=== PATIENT | female | born 1935 | race Caucasian/White ===

== ENCOUNTER 2016-11-05 13:19 | Outpatient (RCR) | payer MEDICARE ==
--- OUTSIDE RECORDS SUMMARY | 2016-08-27 13:14 | XMS REPORT | Continuity of Care Document ---
Author Author [facility] Organization [facility] Address Unknown Phone Unavailable Care Team Providers Care Field Collector Name Role Phone JENNIFER WOLFE MD PCP Insurance Providers Payer Name Policy Number Subscriber Name Relationship Wps Medicare [id number] Abilio Coe 18 Self / Same As Patient Blue Cross Mcr Supp [id number] Abilio Coe 18 Self / Same As Patient Advance Directives Directive Response Recorded Date/Time Advance Directives No 12/13/15 12:29pm Health Care Power of Floorleader No 12/13/15 12:29pm Organ Donor Yes 12/13/15 12:29pm Problems Active Problems Medical Problem Onset Date Status Chest pain Unknown Acute Medications Current Home Medications Medication Dose Units Route Directions Days/Qty Instructions Start Date Lisinopril 40 Mg 40 Mg Oral Daily 02/17/11 Oxycodone Hcl 5 Mg 5 Mg Oral Every 6 Hours 12/13/15 Furosemide 20 Mg 20 Mg Oral Daily 12/13/15 Potassium Chloride 10 Meq 10 Meq Oral Daily 12/13/15 Metoprolol Succinate 100 Mg 100 Mg Oral Twice A Day 12/13/15 Metoprolol Succinate 50 Mg 50 Mg Oral Daily 12/13/15 Past Home Medications Medication Directions Ordered Status Warfarin Sodium 5 Mg Tablet, 07/30/08 Discontinued Warfarin Sodium 1 Mg Tablet, 07/30/08 Discontinued Clopidogrel Bisulfate 75 Mg Tablet, 07/30/08 Discontinued Lisinopril 10 Mg Tablet, 07/30/08 Discontinued Metoprolol Succinate 50 Mg Tab.sr.24h, 07/30/08 Discontinued Omeprazole 20 Mg Capsule.dr, 07/30/08 Discontinued Propoxyphene Hcl/Acetaminophen 1 Tab Tablet, 08/28/08 Discontinued Dicloxacillin Sodium 250 Mg Capsule, 09/10/08 Discontinued Clindamycin Hcl 150 Mg Cap, 09/10/08 Discontinued Lansoprazole 30 Mg Cap, 12/11/09 Discontinued Lisinopril 40 Mg Tablet, 01/28/10 Discontinued Metoprolol Succinate 50 Mg Tab, 50 Mg Oral Evening 02/17/11 Discontinued Spironolactone 100 Mg Tablet, 100 Mg Oral Daily 02/17/11 Discontinued Hydrocodone Bit/Acetaminophen 1 Each Tablet, 2 Tab Oral Qid Prn as needed 03/25 Discontinued Cephalexin Monohydrate (Keflex) 500 Mg Capsule, 1 Each Oral Four Times Daily 02/24/11 Discontinued Metronidazole (Flagyl) 500 Mg Tablet, 1 Each Oral Three Times A Day 02/24/11 Discontinued Metoprolol Succinate 100 Mg Tab, 100 Mg Oral Morning 10/28/11 Discontinued Clindamycin Hcl 300 Mg Capsule, 1 Each Oral Four Times Daily 10/28/11 Discontinued Levofloxacin 250 Mg Tab, 250 Mg Oral Daily 11/19/11 Discontinued Omeprazole 20 Mg Capsule.dr, 20 Mg Oral Daily 10/04/14 Discontinued Acetaminophen 500 Mg Tablet, 500 Mg Oral Every 4HRS as needed for Pain Discontinued Hydrocodone Bit/Acetaminophen 1 Tab Tablet, 1-2 Tab Oral Every 4HRS as needed for Pain 10/04/14 Discontinued Metoprolol Tartrate 50 Mg Tablet, 50 Mg Oral Bedtime 10/04/14 Discontinued Cefdinir 300 Mg Capsule, 300 Mg Oral Twice A Day 12/28/14 Discontinued Metoprolol Succinate 100 Mg Tab.er.24h, 100 Mg Oral Twice A Day 12/13/15 Discontinued Social History Social History Problem Response Recorded Date/Time Alcohol Use Denies Use 12/13/2015 12:29pm Recreational Drug Use No 12/13/2015 12:29pm Recent Foreign Travel N [address] 03/17/2016 10:58am Sexually Transmitted Disease No 12/13/2015 12:29pm Do you dip or chew tobacco? No 12/13/2015 12:29pm Hospital Discharge Instructions No hospital discharge instructions. Plan of Care Prescriptions See Medication Section Functional Status No functional status results. Allergies, Adverse Reactions, Alerts Allergen Type Severity Reaction Status Last Updated Morphine Adverse Reaction Mild NAUSEA Active 07/30/08 Codeine Adverse Reaction Mild NAUSEA Active 07/30/08 Meperidine Adverse Reaction Mild N/V Active 01/17/10 Immunizations Name Given Type Date of Influenza Vaccine 09/03/14 Historical Tetanus Booster (TDap) Unknown Historical Vital Signs No known vital signs results. Results Laboratory Results Test Name Result Units Flags Reference Collection Date/Time Result Date/ Time Comments White Blood Count 9.5 10^3/uL 4.3-11.0 04/27/2016 1:05pm 04/27/2016 1: 15pm Red Blood Count 3.56 10^6/uL L 4.35-5.85 04/27/2016 1:05pm 04/27/2016 1: 15pm Hemoglobin 10.7 G/DL L 11.5-16.0 04/27/2016 1:05pm 04/27/2016 1:15pm Hematocrit 33 % L 35-52 04/27/2016 1:05pm 04/27/2016 1:15pm Mean Corpuscular Volume 93 FL 80-99 04/27/2016 1:05pm 04/27/2016 1: 15pm Mean Corpuscular Hemoglobin 30 PG 25-34 04/27/2016 1:05pm 04/27/2016 1: 15pm Mean Corpuscular Hemoglobin Concent 32 G/DL 32-36 04/27/2016 1:05pm 1:15pm Red Cell Distribution Width 14.5 % 10.0-14.5 04/27/2016 1:05pm 2015 1:15pm Platelet Count 268 10^3/uL 130-400 04/27/2016 1:05pm 04/27/2016 1:15pm Mean Platelet Volume 9.5 FL 7.4-10.4 04/27/2016 1:05pm 04/27/2016 1: 15pm Neutrophils (%) (Auto) 65 % 42-75 04/27/2016 1:05pm 04/27/2016 1:15pm Lymphocytes (%) (Auto) 22 % 12-44 04/27/2016 1:05pm 04/27/2016 1:15pm Monocytes (%) (Auto) 12 % 0-12 04/27/2016 1:05pm 04/27/2016 1:15pm Eosinophils (%) (Auto) 1 % 0-10 04/27/2016 1:05pm 04/27/2016 1:15pm Basophils (%) (Auto) 0 % 0-10 04/27/2016 1:05pm 04/27/2016 1:15pm Neutrophils # (Auto) 6.2 X 10^3 1.8-7.8 04/27/2016 1:05pm 04/27/2016 1: 15pm Lymphocytes # (Auto) 2.1 X 10^3 1.0-4.0 04/27/2016 1:05pm 04/27/2016 1: 15pm Monocytes # (Auto) 1.1 X 10^3 H 0.0-1.0 04/27/2016 1:05pm 04/27/2016 1: 15pm Eosinophils # (Auto) 0.1 10^3/uL 0.0-0.3 04/27/2016 1:05pm 04/27/2016 1 :15pm Basophils # (Auto) 0.0 10^3/uL 0.0-0.1 04/27/2016 1:05pm 04/27/2016 1: 15pm Sodium Level 137 MMOL/L 135-145 04/27/2016 1:05pm 04/27/2016 1:48pm Potassium Level 3.7 MMOL/L 3.6-5.0 04/27/2016 1:05pm 04/27/2016 1:48pm Chloride Level 104 MMOL/L 98-107 04/27/2016 1:05pm 04/27/2016 1:48pm Carbon Dioxide Level 25 MMOL/L 21-32 04/27/2016 1:05pm 04/27/2016 1: 48pm Anion Gap 8 MMOL/L 5-14 04/27/2016 1:05pm 04/27/2016 1:48pm Blood Urea Nitrogen 13 MG/DL 7-18 04/27/2016 1:05pm 04/27/2016 1:48pm Creatinine 0.78 MG/DL 0.60-1.30 04/27/2016 1:05pm 04/27/2016 1:48pm BUN/Creatinine Ratio 17 04/27/2016 1:05pm 04/27/2016 1:48pm Estimat Glomerular Filtration Rate > 60 04/27/2016 1:05pm 2015 1:48pm GFR INTERPRETIVE DATA UNITS FOR ESTIMATED GFR (eGFR): mL/min/1.73 M2 REFERENCE RANGE FOR ESTIMATED GFR (eGFR) eGFR NORMAL eGFR >60 MODERATELY DECREASED eGFR 30-59 SEVERLY DECREASED eGFR 15-29 KIDNEY FAILURE <15 (OR DIALYSIS) Glucose Level 102 MG/DL 70-105 04/27/2016 1:05pm 04/27/2016 1:48pm Calcium Level 8.6 MG/DL 8.5-10.1 04/27/2016 1:05pm 04/27/2016 1:48pm Total Bilirubin 3.2 MG/DL H 0.1-1.0 04/27/2016 1:05pm 04/27/2016 1:48pm Alkaline Phosphatase 396 U/L H 40-136 04/27/2016 1:05pm 04/27/2016 1: 48pm Aspartate Amino Transf (AST/SGOT) 48 U/L H 5-34 04/27/2016 1:05pm 2015 1:48pm Alanine Aminotransferase (ALT/SGPT) 32 U/L 0-55 04/27/2016 1:05pm 04/27 1:48pm Total Protein 6.7 G/DL 6.4-8.2 04/27/2016 1:05pm 04/27/2016 1:48pm Albumin 3.4 G/DL 3.2-4.5 04/27/2016 1:05pm 04/27/2016 1:48pm Procedures No known history of procedures. Encounters Encounter Location Arrival/Admit Date Discharge/Depart Date Attending Provider Discharged Recurring [facility] 04/27/16 12:55pm 11:59pm XIN PATE Registered Clinic [facility] 04/22/16 10:25am MORENITA FARRIS
[2016-08-27 13:34] LABS: BASOPHILS % (AUTO) 0 % (0-10); EOSINOPHILS # (AUTO) 0.4 10^3/uL (0.0-0.3); EOSINOPHILS % (AUTO) 4 % (0-10); LYMPHOCYTES # (AUTO) 2.2 X 10^3 (1.0-4.0); LYMPHOCYTES % (AUTO) 27 % (12-44); MEAN CORPUSCULAR HEMOGLOBIN 31 PG (25-34); MEAN CORPUSCULAR HGB CONC 33 G/DL (32-36); MEAN CORPUSCULAR VOLUME 93 FL (80-99); MONOCYTES # (AUTO) 0.9 X 10^3 (0.0-1.0); MONOCYTES % (AUTO) 11 % (0-12); NEUTROPHILS # (AUTO) 4.7 X 10^3 (1.8-7.8); NEUTROPHILS % (AUTO) 57 % (42-75); PLATELET COUNT 241 10^3/uL (130-400); RED BLOOD COUNT 3.49 10^6/uL (4.35-5.85); RED CELL DISTRIBUTION WIDTH 13.1 % (10.0-14.5); WHITE BLOOD COUNT 8.2 10^3/uL (4.3-11.0)
[2016-08-27 14:06] LABS: ALANINE AMINOTRANSFERASE 14 U/L (0-55); ALBUMIN 3.6 G/DL (3.2-4.5); ANION GAP 6 MMOL/L (5-14); ASPARTATE AMINO TRANSFERASE 17 U/L (5-34); BILIRUBIN,TOTAL 0.8 MG/DL (0.1-1.0); BLOOD UREA NITROGEN 15 MG/DL (7-18); BUN/CREATININE RATIO 18; CALCIUM 8.7 MG/DL (8.5-10.1); CARBON DIOXIDE 27 MMOL/L (21-32); CHLORIDE 105 MMOL/L (98-107); CREATININE SERUM 0.84 MG/DL (0.60-1.30); GFR ESTIMATED > 60; GLUCOSE 130 MG/DL (70-105); POTASSIUM 4.4 MMOL/L (3.6-5.0); SODIUM 138 MMOL/L (135-145); TOTAL PROTEIN 6.8 G/DL (6.4-8.2)
[2016-09-24 09:53] LABS: BASOPHILS % (AUTO) 0 % (0-10); EOSINOPHILS # (AUTO) 0.3 10^3/uL (0.0-0.3); EOSINOPHILS % (AUTO) 3 % (0-10); LYMPHOCYTES # (AUTO) 1.8 X 10^3 (1.0-4.0); LYMPHOCYTES % (AUTO) 20 % (12-44); MEAN CORPUSCULAR HEMOGLOBIN 31 PG (25-34); MEAN CORPUSCULAR HGB CONC 34 G/DL (32-36); MEAN CORPUSCULAR VOLUME 92 FL (80-99); MEAN PLATELET VOLUME 9.2 FL (7.4-10.4); MONOCYTES # (AUTO) 0.9 X 10^3 (0.0-1.0); MONOCYTES % (AUTO) 10 % (0-12); NEUTROPHILS % (AUTO) 67 % (42-75); PLATELET COUNT 239 10^3/uL (130-400); RED BLOOD COUNT 3.65 10^6/uL (4.35-5.85); RED CELL DISTRIBUTION WIDTH 13.3 % (10.0-14.5)
[2016-09-24 10:33] LABS: ALANINE AMINOTRANSFERASE 42 U/L (0-55); ALBUMIN 3.8 G/DL (3.2-4.5); ANION GAP 7 MMOL/L (5-14); ASPARTATE AMINO TRANSFERASE 58 U/L (5-34); BILIRUBIN,TOTAL 1.2 MG/DL (0.1-1.0); BLOOD UREA NITROGEN 19 MG/DL (7-18); BUN/CREATININE RATIO 24; CARBON DIOXIDE 24 MMOL/L (21-32); CHLORIDE 105 MMOL/L (98-107); GFR ESTIMATED > 60; GLUCOSE 98 MG/DL (70-105); POTASSIUM 4.6 MMOL/L (3.6-5.0); SODIUM 136 MMOL/L (135-145); TOTAL PROTEIN 7.1 G/DL (6.4-8.2)
[~2016-11-05 13:19] MED LIST: ACET-461 PO; CEFD300C PO; CEPH500C PO; CLIN300C3 PO; CLN150C; CLPD75T; DCL250C; DOXA2TAB2 PO; FLU TRIvalent (5 YOA+) 2016-17 (CANCER CTR) 0.5 ML IM ONE; FURO-125 PO; HYDR-3714 PO; HYDR1TAB66 PO; LEVO250T PO; LISI40TA; LISI40TA PO; LNS30CCR; LSNP10T; METO-274 PO; METO-352 PO; METO100T6 PO; METO50TA2 PO; METO50TA7; METO50TA7 PO; METR500T PO; MTP100TCR PO; OMEP20CA12; OMEP20CA12 PO; OXYC5TAB71 PO; POTA10TA6 PO; PROP1TAB77; SPIR100T PO; WRF1T; WRF5T
[2017-02-17] MEDS ORDERED: FENT1PAT8 TD (09:22)
[2017-02-17] MEDS ORDERED: Oxycodone Hcl PO (09:22)
[2017-02-17] MEDS ORDERED: Calcitonin (09:22)
[2017-03-18] MEDS ORDERED: HYDR2TAB6 PO (15:01)
== END 2016-11-25 | disposition home or self-care (01) ==
LOC: ONC 13:19
PROVIDERS: ATTEND Internal Medicine Hematology & Oncology
DX: C25.0 Malignant neoplasm of head of pancreas (principal); C77.9 Secondary and unspecified malignant neoplasm of lymph node, unspecified; D64.9 Anemia, unspecified; Z79.899 Other long term (current) drug therapy; Z23 Encounter for immunization; Z45.2 Encounter for adjustment and management of vascular access device
CPT/HCPCS: 36591; 80053; 85025; 86301; 90471; 96523; 99213

== ENCOUNTER → 2016-12-17 | Outpatient (CLI) | payer MEDICARE ==
[~2016-12-17] MED LIST changes: +BARIUM SUSPENSION 2.1% (VANILLA SILQ) 450 ML PO ONE; +CATHETER FLUSH 10 ML SYR IV PRN; +CEFU250T80 PO; +Calcitonin; +DIAZ5TAB3 PO; +FENT1PAT8 TD; -FLU TRIvalent (5 YOA+) 2016-17 (CANCER CTR) 0.5 ML IM ONE; +HYDR2TAB6 PO; +IOHEXOL 350 MG/ML 100 ML (OMNIPAQUE 350) VIAL IV ONE; +KETO10TA PO; +NS 100 ML (IVPB) BAG IV ONE; +ONDA8TAB6 PO; +Oxycodone Hcl PO
--- OUTSIDE RECORDS SUMMARY | 2016-12-17 10:19 | XMS REPORT | Continuity of Care Document ---
Author Author [facility] Organization [facility] Address Unknown Phone Unavailable Care Team Providers Care Die Barber Name Role Phone JENNIFER WOLFE MD PCP Insurance Providers Payer Name Policy Number Subscriber Name Relationship Wps Medicare [id number] Abilio Coe 18 Self / Same As Patient Blue Cross Mcr Supp [id number] Abilio Coe 18 Self / Same As Patient Advance Directives Directive Response Recorded Date/Time Advance Directives No 12/13/15 12:29pm Health Care Power of Aircraft Fuselage Framer No 12/13/15 12:29pm Organ Donor Yes 12/13/15 [...] Discharge/Depart Date Attending Provider Discharged Recurring [facility] 04/27/16 12:55pm 11:59pm XIN PATE Registered Clinic [facility] 04/22/16 10:25am MORENITA FARRIS
--- NOTE | 2016-12-17 12:51 | Diagnostic Imaging Report ---
PROCEDURE: CT chest and abdomen with contrast. TECHNIQUE: Multiple contiguous axial images were obtained through the chest and abdomen after the administration of intravenous contrast. INDICATION: Pancreatic cancer followup. CONTRAST: 100 mL of Omnipaque 350 is administered intravenously. COMPARISON: 09/24/2016. FINDINGS: CT chest: In the left supraclavicular region, there is a 2.9 x 2.5 cm asymmetric soft tissue lesion inseparable from the anterior scalene muscle on the left side, which appears larger compared to 09/24/2016 exam. Exact measurements are difficult based on the prior study in particular due to poor separation of this lesion from the adjacent anterior scalene muscle. 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 It could be better seen with dedicated CT scan or MRI of the neck. There is an enlarged retroesophageal lymph node to the right side of the descending aorta at the level of the mellisa measuring 1.6 x 1.2 cm, enlarged from prior measurements of 1.4 x 1 cm. No other significantly enlarged mediastinal lymph nodes is seen. No hilar lymphadenopathy is seen. The heart size is normal. No pericardial or pleural effusion. The thoracic aorta is normal in caliber. The lungs demonstrate calcified granulomas in the right lung base. There is a 6 mm low-density nodule seen in the left lower lobe, image 39, new from the prior study. The previously seen nodule along the mid portion of the right middle lobe, image 35, is less prominent on the current exam with similar measurement of 6 mm. Etiology is indeterminate. The osseous structures appear grossly unremarkable. CT abdomen: There is a pancreatic head mass with poorly defined margins extending into the marco hepatis region seen. There is a CBD stent in place. There is extensive biliary air noted with dilated bile ducts within the liver parenchyma, worse in the left hepatic lobe. The pancreatic head mass measures 6.4 x 3.9 cm compared to 4.8 x 3.9 cm on the prior exam. There is slight enlargement in a paracaval lymph node measuring 2.5 x 2.2 cm compared to 2.5 x 2 cm previously with a slightly more prominent aortocaval lymph node adjacent to it. Another more inferior aortocaval lymph node measures 2.2 cm compared to 1.3 cm previously. The spleen is not enlarged. The adrenals appear unremarkable. There is an IVC filter in place. The kidneys have symmetric enhancement and contrast excretion. There is a simple cyst in the lower pole of the right kidney measuring 4.5 cm. The abdominal aorta is normal in caliber. The osseous structures appear grossly unremarkable. IMPRESSION: CT chest: 1. 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 2. A 6 mm new nonspecific low-density left lower lobe nodule. Stable 6 mm right middle lobe nodule. 3. Slight enlargement in 1.6 cm retroesophageal lymph node. CT abdomen: There is slight enlargement in the pancreatic head mass and in the paracaval lymphadenopathy seen. Dictated by: Dictated on workstation # [id number]
== END ==
LOC: RAD 10:15
PROVIDERS: ATTEND Nurse Practitioner Adult Health
DX: R22.2 Localized swelling, mass and lump, trunk (principal); R91.8 Other nonspecific abnormal finding of lung field; R59.0 Localized enlarged lymph nodes; C25.0 Malignant neoplasm of head of pancreas
CPT/HCPCS: 71260; 74160

== ENCOUNTER 2017-01-23 15:30 | Emergency (ER) | payer MEDICARE ==
[~2017-01-23] VITALS: Ht 175.3 cm; Wt 78.5 kg
[~2017-01-23 15:30] MED LIST changes: -BARIUM SUSPENSION 2.1% (VANILLA SILQ) 450 ML PO ONE; -CATHETER FLUSH 10 ML SYR IV PRN; -CEFU250T80 PO; -Calcitonin; -DIAZ5TAB3 PO; -FENT1PAT8 TD; -HYDR2TAB6 PO; -IOHEXOL 350 MG/ML 100 ML (OMNIPAQUE 350) VIAL IV ONE; -KETO10TA PO; -NS 100 ML (IVPB) BAG IV ONE; -ONDA8TAB6 PO; -Oxycodone Hcl PO
--- OUTSIDE RECORDS SUMMARY | 2017-01-23 15:36 | XMS REPORT | Continuity of Care Document ---
Author Author [facility] Organization [facility] Address Unknown Phone Unavailable Care Team Providers Care Liquefied Petroleum Gasfitter Name Role Phone JENNIFER WOLFE MD PCP Insurance Providers Payer Name Policy Number Subscriber Name Relationship Wps Medicare [id number] Abilio Coe 18 Self / Same As Patient Blue Cross Mcr Supp [id number] Abilio Coe 18 Self / Same As Patient Advance Directives Directive Response Recorded Date/Time Advance Directives No 12/13/15 12:29pm Health Care Power of Performance Improvement Director No 12/13/15 12:29pm Organ Donor Yes 12/13/15 [...] Discharge/Depart Date Attending Provider Discharged Recurring [facility] 04/27/16 12:55pm 11:59pm XIN PATE Registered Clinic [facility] 04/22/16 10:25am MORENITA FARRIS
[2017-01-23] MEDS ORDERED: ORPHENADRINE 60 MG/2 ML (NORFLEX) AMP IV ONE (17:00)
[2017-01-23] MEDS ORDERED: KETOROLAC 30 MG/ML VIAL IVP ONE (17:00)
[2017-01-23 17:06] LABS: BASOPHILS % (AUTO) 0 % (0-10); EOSINOPHILS # (AUTO) 0.2 10^3/uL (0.0-0.3); EOSINOPHILS % (AUTO) 2 % (0-10); LYMPHOCYTES # (AUTO) 2.1 X 10^3 (1.0-4.0); LYMPHOCYTES % (AUTO) 22 % (12-44); MEAN CORPUSCULAR HEMOGLOBIN 32 PG (25-34); MEAN CORPUSCULAR HGB CONC 34 G/DL (32-36); MEAN CORPUSCULAR VOLUME 94 FL (80-99); MEAN PLATELET VOLUME 9.4 FL (7.4-10.4); MONOCYTES # (AUTO) 0.2 X 10^3 (0.0-1.0); MONOCYTES % (AUTO) 2 % (0-12); NEUTROPHILS # (AUTO) 6.9 X 10^3 (1.8-7.8); NEUTROPHILS % (AUTO) 74 % (42-75); PLATELET COUNT 302 10^3/uL (130-400); RED CELL DISTRIBUTION WIDTH 14.9 % (10.0-14.5); WHITE BLOOD COUNT 9.3 10^3/uL (4.3-11.0)
[2017-01-23 17:30] LABS: ALANINE AMINOTRANSFERASE 16 U/L (0-55); ALBUMIN 3.4 G/DL (3.2-4.5); ANION GAP 10 MMOL/L (5-14); ASPARTATE AMINO TRANSFERASE 28 U/L (5-34); BILIRUBIN,TOTAL 0.7 MG/DL (0.1-1.0); BLOOD UREA NITROGEN 23 MG/DL (7-18); BUN/CREATININE RATIO 24; CALCIUM 8.4 MG/DL (8.5-10.1); CARBON DIOXIDE 20 MMOL/L (21-32); CHLORIDE 104 MMOL/L (98-107); CREATININE SERUM 0.95 MG/DL (0.60-1.30); GFR ESTIMATED 57; GLUCOSE 100 MG/DL (70-105); LIPASE < 4 U/L (8-78); SODIUM 134 MMOL/L (135-145); TOTAL PROTEIN 6.6 G/DL (6.4-8.2)
--- NOTE | 2017-01-23 17:40 | ED Back Pain ---
General Chief Complaint: Back Problems Stated Complaint: BACK PAIN Nursing Triage Note: PT HERE WITH C/O MID BACK PAIN AFTER LIFTING BAGS. Nursing Sepsis Screen: No Definite Risk Source of Information: Patient Exam Limitations: No Limitations History of Present Illness Time Seen by Provider: 16:45 Initial Comments To ER with thoracic back pain that wraps around to the front. This began suddenly yesterday after lifting a bag of groceries. She is currently being treated with chemotherapy every by Dr. Alvarado for pancreatic cancer. She denies abdominal pain nausea or vomiting. She took 2 extra doses of Percocet at 245 p.m. today without improvement in pain. No paresthesias in her arms or legs. She did not fall. Location: T-Spine Timing/Duration: 12-24 Hours Severity: Moderate Pain/Injury Location: Back Associated Symptoms: denies symptoms Allergies and Home Medications Allergies Coded Allergies: codeine (Verified Adverse Reaction, Mild, NAUSEA, 07/30/08) meperidine (Verified Adverse Reaction, Mild, N/V, 01/17/10) morphine (Verified Adverse Reaction, Mild, NAUSEA, 07/30/08) Home Medications Doxazosin Mesylate 2 Mg Tablet 2 MG PO DAILY (Reported) Furosemide 20 Mg Tablet 20 MG PO DAILY (Reported) Lisinopril 40 Mg Tablet 40 MG PO DAILY (Reported) Metoprolol Succinate 100 Mg Tab.er.24h 100 MG PO BID (Reported) Metoprolol Succinate 50 Mg Tab.er.24h 50 MG PO DAILY (Reported) Oxycodone HCl 5 Mg Tablet 5 MG PO Q6H (Reported) Constitutional: see HPI EENTM: see HPI Respiratory: no symptoms reported Cardiovascular: no symptoms reported Genitourinary: no symptoms reported Musculoskeletal: see HPI back pain Skin: no symptoms reported Psychiatric/Neurological: No Symptoms Reported Past Tjwrgyf-Xkuabl-Lervgl Hx Patient Social History Former Smoker/When Quit: Dec 16, 2001 Recent Foreign Travel: No Contact w/Someone Who Travel: No Recent Infectious Disease Expo: No Recent Hopitalizations: Yes Immunizations Up To Date Tetanus Booster (TDap): Unknown Date of Influenza Vaccine: Sep 03, 2014 Surgeries HX Surgeries: Yes (BILATERAL FEM-POP, ARTERIAL SURGERY IN BILATERAL LEGS, CATARACTS, STENT.) Surgeries: Appendectomy, Gallbladder, Hysterectomy Respiratory Hx Respiratory Disorders: No Cardiovascular Hx Cardiac Disorders: Yes Cardiac Disorders: Hypertension Neurological Hx Neurological Disorders: No Reproductive System Hx Reproductive Disorders: No Sexually Transmitted Disease: No Genitourinary Hx Genitourinary Disorders: No Gastrointestinal Hx Gastrointestinal Disorders: Yes Musculoskeletal Hx Musculoskeletal Disorders: No Endocrine Hx Endocrine Disorders: No HEENT HX ENT Disorders: Yes (DENTURES) Cancer Hx Cancer: Yes Cancer: Pancreatic Psychosocial Hx Psychiatric Problems: No Integumentary HX Skin/Integumentary Disorder: No Blood Transfusions Hx Blood Disorders: No Family Medical History Significant Family History: No Pertinent Family Hx Physical Exam Vital Signs Vital Sign - Last 12Hours 01/23/17 16:04 Temp 98.5 Pulse 64 Resp 18 B/P 128/57 Pulse Ox 94 O2 Delivery Room Air Capillary Refill : Less Than 3 Seconds General Appearance: No Apparent Distress WD/WN HEENT: PERRL/EOMI TMs Normal Respiratory: Normal Breath Sounds No Accessory Muscle Use No Respiratory Distress Gastrointestinal: Normal Bowel Sounds No Pulsatile Mass Non Tender Soft Extremity: Normal Capillary Refill Normal Inspection Neurologic/Psychiatric: Alert Oriented x3 No Motor/Sensory Deficits Skin: Normal Color Warm/Dry Progress/Results/Core Measures Results/Orders Lab Results Laboratory Tests Test 01/23/17 16:58 Range/Units Alanine Aminotransferase (ALT/SGPT) 16 0-55 U/L Albumin 3.4 3.2-4.5 G/DL Alkaline Phosphatase 68 40-136 U/L Anion Gap 10 5-14 MMOL/L Aspartate Amino Transf (AST/SGOT) 28 5-34 U/L BUN/Creatinine Ratio 24 Basophils # (Auto) 0.0 0.0-0.1 10^3/uL Basophils (%) (Auto) 0 0-10 % Blood Urea Nitrogen 23 H 7-18 MG/DL Calcium Level 8.4 L 8.5-10.1 MG/DL Carbon Dioxide Level 20 L 21-32 MMOL/L Chloride Level 104 98-107 MMOL/L Creatinine 0.95 0.60-1.30 MG/DL Eosinophils # (Auto) 0.2 0.0-0.3 10^3/uL Eosinophils (%) (Auto) 2 0-10 % Estimat Glomerular Filtration Rate 57 Glucose Level 100 70-105 MG/DL Hematocrit 30 L 35-52 % Hemoglobin 10.1 L 11.5-16.0 G/DL Lipase < 4 L 8-78 U/L Lymphocytes # (Auto) 2.1 1.0-4.0 X 10^3 Lymphocytes (%) (Auto) 22 12-44 % Mean Corpuscular Hemoglobin 32 25-34 PG Mean Corpuscular Hemoglobin Concent 34 32-36 G/DL Mean Corpuscular Volume 94 80-99 FL Mean Platelet Volume 9.4 7.4-10.4 FL Monocytes # (Auto) 0.2 0.0-1.0 X 10^3 Monocytes (%) (Auto) 2 0-12 % Neutrophils # (Auto) 6.9 1.8-7.8 X 10^3 Neutrophils (%) (Auto) 74 42-75 % Platelet Count 302 130-400 10^3/uL Potassium Level 5.0 3.6-5.0 MMOL/L Red Blood Count 3.20 L 4.35-5.85 10^6/uL Red Cell Distribution Width 14.9 H 10.0-14.5 % Sodium Level 134 L 135-145 MMOL/L Total Bilirubin 0.7 0.1-1.0 MG/DL Total Protein 6.6 6.4-8.2 G/DL White Blood Count 9.3 4.3-11.0 10^3/uL My Orders Orders-RONEL MARES APRN Cbc With Automated Diff (01/23/17 16:55) Comprehensive Metabolic Panel (01/23/17 16:55) Lipase (01/23/17 16:55) T-Spine 3v-Ap, Lat, Swimmers (01/23/17 16:55) Ct Abdomen/Pelvis Wo (01/23/17 16:55) Saline Lock/Iv-Start (01/23/17 16:55) Ketorolac Injection (Toradol Injection) (01/23/17 17:00) Orphenadrine Injection (Norflex Injectio (01/23/17 17:00) Medications Given in ED Current Medications Medications Dose Ordered Sig/Fracisco Route Start Time Stop Time Status Last Admin Dose Admin Ketorolac Tromethamine 30 mg ONCE ONCE IVP 01/23/17 17:00 01/23/17 17:01 DC 01/23/17 17:08 30 MG Orphenadrine Citrate 30 mg ONCE ONCE IV 01/23/17 17:00 01/23/17 17:01 DC 01/23/17 17:06 30 MG Vital Signs/I&O Vital Sign - Last 12Hours 01/23/17 16:04 Temp 98.5 Pulse 64 Resp 18 B/P 128/57 Pulse Ox 94 O2 Delivery Room Air Blood Pressure Mean: 80 Diagnostic Imaging Diagonstic Imaging: CT Comments NAME: ABILIO COE [facility] REC#: [id number] PT STATUS: REG ER : 1935 PHYSICIAN: RONEL MARES CHAIRMAN AND CEO ADMIT DATE: 01/23/17/ER Draft Date of Exam:01/23/17 CT ABDOMEN/PELVIS WO Procedure: CT abdomen and pelvis without contrast. Technique: Multiple contiguous axial images were obtained through the abdomen and pelvis without the use of intravenous contrast. Indication: Abdominal pain after lifting groceries yesterday. Comparison: 12/17/2016 and 05/29/2016. Discussion: Atelectasis is noted within the bilateral lung bases. Coarse calcifications within the right lung base are stable, likely benign. Apparent pancreatic head mass with metallic common bile duct stent and extensive pneumobilia is stable. Masslike thickening of the marco hepatis is stable. IVC filter is again noted. Atrophy of the pancreatic body and tail is stable. The stomach, spleen, adrenal glands and urinary bladder are unremarkable. The uterus is surgically absent. Large left renal cyst is stable. Mild atrophy of the right kidney is stable. Mild constipation. No obstruction, pneumatosis or pneumoperitoneum. Chronic appearing compression fracture of the T12 vertebrae is stable. Moderate degenerative changes of the lumbar spine are stable. No acute osseous abnormality identified. Impression: Stable chronic changes, as discussed above. No acute abnormality identified. Dictated on workstation # [id number] Dict: 01/23/17 1755 Trans: 01/23/17 1807 [facility] [id number] Interpreted by: SYLVIA DORMAN MD Electronically signed by: Departure Communication Progress Notes 1818-pain was 9 out of 10 upon arrival. She was given 30 mg of Toradol and 30 mg of Norflex IV. Pain is currently 2 out of 10. No new findings on CT. We will discharge to home. Impression Impression: Primary Impression: Pancreatic cancer Additional Impression: Thoracic back sprain Disposition: HOME, SELF-CARE Condition: Improved Decision to Admit Reason: Admit from ER (General) Departure-Patient Inst. Decision time for Depature: 18:17 Referrals: DENY MONTAGUE MD (PCP/Family) Primary Care Physician Patient Instructions: Muscle Strain (DC) Add. Discharge Instructions: 1. Return to ER for any worsening pain or other concerns 2. Follow-up with Dr. Chin All discharge instructions reviewed with patient and/or family. Voiced understanding. Copy Copies To 1: XIN CHIN PETER J APRN Jan 23, 2017 17:40
--- NOTE | 2017-01-23 17:47 | Diagnostic Imaging Report ---
Indication: Mid back pain after lifting groceries yesterday. Discussion: Three views of the thoracic spine were obtained, no comparison. Postoperative changes are noted within the right upper quadrant with additional IVC filter present. Left chest wall [id number] is noted. Mild chronic appearing compression fracture of either T12 or L1 appears stable from chest x-ray of 02/01/2015. Age-related degenerative changes are present throughout the thoracic spine. No acute osseous abnormality is identified. Antecedent granulomatous disease is again noted. Impression: Chronic changes of the thoracic spine, as described. No acute osseous abnormality identified. Dictated by: Dictated on workstation # [id number]
--- NOTE | 2017-01-23 18:08 | Diagnostic Imaging Report ---
Procedure: CT abdomen and pelvis without contrast. Technique: Multiple contiguous axial images were obtained through the abdomen and pelvis without the use of intravenous contrast. Indication: Abdominal pain after lifting groceries yesterday. Comparison: 12/17/2016 and 05/29/2016. Discussion: Atelectasis is noted within the bilateral lung bases. Coarse calcifications within the right lung base are stable, likely benign. Apparent pancreatic head mass with metallic common bile duct stent and extensive pneumobilia is stable. Masslike thickening of the marco hepatis is stable. IVC filter is again noted. Atrophy of the pancreatic body and tail is stable. The stomach, spleen, adrenal glands and urinary bladder are unremarkable. The uterus is surgically absent. Large left renal cyst is stable. Mild atrophy of the right kidney is stable. Mild constipation. No obstruction, pneumatosis or pneumoperitoneum. Chronic appearing compression fracture of the T12 vertebrae is stable. Moderate degenerative changes of the lumbar spine are stable. No acute osseous abnormality identified. Impression: Stable chronic changes, as discussed above. No acute abnormality identified. Dictated by: Dictated on workstation # [id number]
[2017-01-23 18:42] VITALS: BP 109/55
[2017-02-17] MEDS ORDERED: Calcitonin (09:22)
[2017-02-17] MEDS ORDERED: FENT1PAT8 TD (09:22)
[2017-02-17] MEDS ORDERED: Oxycodone Hcl PO (09:22)
[2017-03-18] MEDS ORDERED: HYDR2TAB6 PO (15:01)
== END 2017-01-23 18:42 | disposition home or self-care (01) ==
LOC: EDUNIT# 15:30 → ER 15:31
DX: M54.6 Pain in thoracic spine (principal); M47.814 Spondylosis without myelopathy or radiculopathy, thoracic region; M47.816 Spondylosis without myelopathy or radiculopathy, lumbar region; C25.9 Malignant neoplasm of pancreas, unspecified; I10 Essential (primary) hypertension; Z79.899 Other long term (current) drug therapy
CPT/HCPCS: 36415; 72072; 74176; 80053; 83690; 85025; 96374; 96375

== ENCOUNTER 2017-02-04 18:07 | Day surgery (SDC) | payer MEDICARE ==
[~2017-02-04] VITALS: Ht 175.3 cm; Wt 81.5 kg
[2017-02-04] MEDS ORDERED: fentaNYL INJECTION 100 MCG/2 ML AMP IVP STA ×2 (18:51→20:38)
[2017-02-04 19:05] LABS: BILIRUBIN,URINE NEGATIVE (NEGATIVE); KETONES,URINE NEGATIVE (NEGATIVE); LEUKOCYTE ESTERASE ,URINE 3+ (NEGATIVE); NITRITE,URINE NEGATIVE (NEGATIVE); PH,URINE 7 (5-9); PROTEIN,URINE NEGATIVE (NEGATIVE); UROBILINOGEN,URINE 1 MG/DL (NORMAL)
--- NOTE | 2017-02-04 19:18 | ED Back Pain ---
General Chief Complaint: Back Problems Stated Complaint: BACK PAIN Nursing Triage Note: PT HERE WITH C/O MIDDLE BACK PAIN FROM [facility]. PT REPORTS THIS WILL BE HER 3RD VISIT FOR THIS SAME COMPLAINT. Nursing Sepsis Screen: No Definite Risk Source of Information: Patient, Family (DAUGHTER) History of Present Illness Time Seen by Provider: 18:50 Initial Comments PT ARRIVES VIA POV FROM HOME PT WAS CARRYING GROCERIES INTO HOUSE A WEEK AGO AND SUDDENLY BEGAN TO HAVE MID AND LOWER BACK PAIN --FELT LIKE A BAD PULLED MUSCLE PT WAS SEEN IN ER A WEEK AGO, CT OF ABDOMEN/PELVIS AND THORACIC SPINE XRAYS DID NOT SHOW ANY ACUTE PROCESS--PT HAS PANCREATIC CANCER AND HAD CHANGES RELATED TO THAT, AND OLD T12 COMPRESSION FX AND DEGENERATIVE CHANGES OF LUMBAR SPINE. WAS GIVEN MEDICATIONS IN ER AND HELPED ALOT, NO RX GIVEN PT SEEN BY DR. Sergey MONTAGUE 2 DAYS AGO FOR SAME. RX FOR VALIUM GIVEN--PT STATES NO RELIEF PT TAKES OXYCODONE FOR CHRONIC ARTHRITIS PAIN, ESPECIALLY IN LEGS AND KNEES-- TOOK 2 TODAY AT 1400 WITHOUT RELIEF. NO PARESTHESIAS OR MOTOR DEFICITS NO BOWEL OR BLADDER FUNCTION DIFFICULTIES NO CHEST PAIN OR SHORTNESS OF BREATH NO FEVER NO ABDOMINAL PAIN OR NAUSEA/VOMITING STATES IT HURTS TO MOVE AT ALL PT IS CURRENTLY RECEIVING CHEMO FOR PANCREATIC CANCER AND WAS SUPPOSED TO HAVE IT TODAY, BUT DID NOT GO, DUE TO PAIN. LAST TREATMENT WAS A WEEK AGO. PT HAS NOT HAD RADIATION, BUT HAS HAD CBD STENT Other Comments PCP: DR. Sergey MONTAGUE SHUTTLE THREADER: DR. ELLIS Allergies and Home Medications Allergies Coded Allergies: codeine (Verified Adverse Reaction, Mild, NAUSEA, 07/30/08) meperidine (Verified Adverse Reaction, Mild, N/V, 01/17/10) morphine (Verified Adverse Reaction, Mild, NAUSEA, 07/30/08) Home Medications Doxazosin Mesylate 2 Mg Tablet, 2 MG PO DAILY, (Reported) Furosemide 20 Mg Tablet, 20 MG PO DAILY, (Reported) Lisinopril 40 Mg Tablet, 40 MG PO DAILY, (Reported) Metoprolol Succinate 100 Mg Tab.er.24h, 100 MG PO BID, (Reported) Metoprolol Succinate 50 Mg Tab.er.24h, 50 MG PO DAILY, (Reported) Oxycodone HCl 5 Mg Tablet, 5 MG PO Q6H, (Reported) Constitutional: no symptoms reported, No chills, No diaphoresis, No fever Respiratory: no symptoms reported Cardiovascular: no symptoms reported, No chest pain, No edema, vascular heart diseas, other (PVD) Gastrointestinal: no symptoms reported, No abdominal pain, No constipation, No diarrhea, No nausea, No vomiting Genitourinary: no symptoms reported Musculoskeletal: see HPI, back pain, joint pain (CHRONIC/ STABLE), No neck pain Skin: no symptoms reported Psychiatric/Neurological: No Symptoms Reported, Denies Paresthesia, Denies Tingling, Denies Weakness Past Lghtcix-Ckknkx-Xshrxi Hx Patient Social History Alcohol Use: Denies Use Recreational Drug Use: No Smoking Status: Former Smoker (1 PPD) Type Used: Cigarettes Former Smoker/When Quit: Dec 16, 2001 Recent Foreign Travel: No Contact w/Someone Who Travel: No Recent Infectious Disease Expo: No Recent Hopitalizations: Yes Immunizations Up To Date Tetanus Booster (TDap): Unknown Date of Influenza Vaccine: Sep 03, 2014 Surgeries HX Surgeries: Yes (BILATERAL FEM-POP TWICE WITH REVISION ON LEFT--GRAFT REMOVED FROM LEFT LEG 2007 , MULTIPLE ARTERIAL SURGERIES ON BILATERAL LEGS-- FEMORAL PATCH, ANGIOPLASTY, DEBRIDEMENTS; THROMBECTOMY; CATARACTS; IVC PLACEMENT ; CBD STENT; MULTIPLE COMPLICATIONS FROM SURGERIES--DVT/INFECTIONS/DEHISCENCE) Surgeries: Abdominal, Appendectomy, Eye Surgery, Gallbladder, Hysterectomy, Vascular Surgery Respiratory Hx Respiratory Disorders: No Cardiovascular Hx Cardiac Disorders: Yes (MULTIPLE INTERVENTIONS IN LEGS; MULTIPLE COMPLICATIONS FROM SURGERIES--DVT/INFECTION/DEHISCENCE; ASVD) Cardiac Disorders: Deep Vein Thrombosis, Hypertension, Peripheral Vascular Neurological Hx Neurological Disorders: No Reproductive System Hx Reproductive Disorders: No 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, Menopausal Genitourinary Hx Genitourinary Disorders: No Gastrointestinal Hx Gastrointestinal Disorders: Yes (PANCREATIC CANCER) Gastrointestinal Disorders: Gastroesophageal Reflux Musculoskeletal Hx Musculoskeletal Disorders: Yes Musculoskeletal Disorders: Degenerate Disk Disease, Arthritis Endocrine Hx Endocrine Disorders: No HEENT HX ENT Disorders: Yes (DENTURES) Cancer Hx Cancer: Yes Cancer: Pancreatic Psychosocial Hx Psychiatric Problems: No Integumentary HX Skin/Integumentary Disorder: No (POST OP WOUND INFECTIONS, DEHISCENCE) Blood Transfusions Hx Blood Disorders: No Physical Exam Vital Signs Vital Sign - Last 12Hours 02/04/17 18:20 Temp 98.7 Pulse 78 Resp 18 B/P (MAP) 147/80 Pulse Ox 93 O2 Delivery Room Air Capillary Refill : Less Than 3 Seconds General Appearance: No Apparent Distress, WD/WN, Other (FRAIL) HEENT: PERRL/EOMI Neck: Full Range of Motion, Normal Inspection, Non Tender, Supple Cardiovascular: Regular Rate, Rhythm, No Edema, No JVD, No Murmur Respiratory: Normal Breath Sounds, No Accessory Muscle Use, No Respiratory Distress Gastrointestinal: Normal Bowel Sounds, Non Tender, Soft Back: Other (DIFFUSE TENDERNESS OF MID AND LOWER BACK. 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 Norm as Tested Skin: Normal Color, Warm/Dry, No Rash Progress/Results/Core Measures Results/Orders Lab Results Laboratory Tests Test 02/04/17 18:57 02/04/17 19:25 Range/Units Urine Color YELLOW Urine Clarity SLIGHTLY CLOUDY Urine pH 7 5-9 Urine Specific [place] 1.015 L 1.016-1.022 Urine Protein NEGATIVE NEGATIVE Urine Glucose (UA) NEGATIVE NEGATIVE Urine Ketones NEGATIVE NEGATIVE Urine Nitrite NEGATIVE NEGATIVE Urine Bilirubin NEGATIVE NEGATIVE Urine Urobilinogen 1 NORMAL MG/DL Urine Leukocyte Esterase 3+ H NEGATIVE Urine RBC (Auto) NEGATIVE NEGATIVE Urine RBC NONE /HPF Urine WBC 10-25 H /HPF Urine Squamous Epithelial Cells 5-10 /HPF Urine Renal Epithelial Cells 0-2 /HPF Urine Crystals NONE /LPF Urine Bacteria TRACE /HPF Urine Casts NONE /LPF Urine Mucus NEGATIVE /LPF Urine Culture Indicated YES White Blood Count 9.7 4.3-11.0 10^3/uL Red Blood Count 3.01 L 4.35-5.85 10^6/uL Hemoglobin 9.6 L 11.5-16.0 G/DL Hematocrit 29 L 35-52 % Mean Corpuscular Volume 96 80-99 FL Mean Corpuscular Hemoglobin 32 25-34 PG Mean Corpuscular Hemoglobin Concent 33 32-36 G/DL Red Cell Distribution Width 16.2 H 10.0-14.5 % Platelet Count 240 130-400 10^3/uL Mean Platelet Volume 9.1 7.4-10.4 FL Neutrophils (%) (Auto) 55 42-75 % Lymphocytes (%) (Auto) 20 12-44 % Monocytes (%) (Auto) 17 H 0-12 % Eosinophils (%) (Auto) 8 0-10 % Basophils (%) (Auto) 1 0-10 % Neutrophils # (Auto) 5.3 1.8-7.8 X 10^3 Lymphocytes # (Auto) 1.9 1.0-4.0 X 10^3 Monocytes # (Auto) 1.7 H 0.0-1.0 X 10^3 Eosinophils # (Auto) 0.8 H 0.0-0.3 10^3/uL Basophils # (Auto) 0.1 0.0-0.1 10^3/uL Prothrombin Time 13.8 12.2-14.7 SEC INR Comment 1.1 0.8-1.4 Activated Partial Thromboplast Time 32 24-35 SEC Sodium Level 137 135-145 MMOL/L Potassium Level 4.9 3.6-5.0 MMOL/L Chloride Level 106 98-107 MMOL/L Carbon Dioxide Level 23 21-32 MMOL/L Anion Gap 8 5-14 MMOL/L Blood Urea Nitrogen 17 7-18 MG/DL Creatinine 1.07 0.60-1.30 MG/DL Estimat Glomerular Filtration Rate 49 BUN/Creatinine Ratio 16 Glucose Level 105 70-105 MG/DL Calcium Level 8.6 8.5-10.1 MG/DL Total Bilirubin 0.7 0.1-1.0 MG/DL Aspartate Amino Transf (AST/SGOT) 19 5-34 U/L Alanine Aminotransferase (ALT/SGPT) 11 0-55 U/L Alkaline Phosphatase 78 40-136 U/L Total Protein 6.1 L 6.4-8.2 G/DL Albumin 3.2 3.2-4.5 G/DL Amylase Level 51 25-125 U/L Lipase 4 L 8-78 U/L My Orders Orders - WON,LATRICIA K DO Saline Lock/Iv-Start (02/04/17 18:51) Amylase (02/04/17 18:51) Cbc With Automated Diff (02/04/17 18:51) Comprehensive Metabolic Panel (02/04/17 18:51) Lipase (02/04/17 18:51) Protime With Inr (02/04/17 18:51) Partial Thromboplastin Time (02/04/17 18:51) Ua Culture If Indicated (02/04/17 18:51) Ct Thoracic/Lumbar Spine Wo (02/04/17 18:51) Fentanyl Injection (Sublimaze Injection (02/04/17 18:51) Chest Pa/Lat (2 View) (02/04/17 18:51) Urine Culture (02/04/17 18:57) Ceftriaxone Injection (Rocephin Injectio (02/04/17 20:45) Fentanyl Injection (Sublimaze Injection (02/04/17 20:38) Ceftriaxone Injection (Rocephin Injectio (02/04/17 20:46) Ns (Ivpb) (Sodium Chloride 0.9% Ivpb Bag (02/04/17 20:46) Medications Given in ED Current Medications Medications Dose Ordered Sig/Fracisco Route Start Time Stop Time Status Last Admin Dose Admin Ceftriaxone Sodium 1000 mg/ Sodium Chloride 50 ml @ 100 mls/hr ONCE ONCE IV 02/04/17 20:45 02/04/17 21:34 DC 02/04/17 20:49 100 MLS/HR Vital Signs/I&O Vital Sign - Last 12Hours 02/04/17 18:20 Temp 98.7 Pulse 78 Resp 18 B/P (MAP) 147/80 Pulse Ox 93 O2 Delivery Room Air Blood Pressure Mean: 102 Progress Note : Progress Note SOME IMPROVEMENT WITH FENTANYL NO DETERIORATION IN PT'S CONDITION DURING ER STAY Diagnostic Imaging Comments CXR--DISCOID ATELECTASIS IN BASES, NO ACUTE PROCESS CT THORACIC AND LUMBAR SPINE--NEW T10 COMPRESSION FRACTURE, NO RETROPULSION, STABLE T12 FRACTURE, OTHER CHRONIC CHANGES PER RADIOLOGIST REPORTS @ 2029 Reviewed: Reviewed by Me Departure Communication Progress Notes 2034--SPOKE WITH DR. Sergey MONTAGUE, ACCEPTS PT FOR ADMIT. 2039--SPOKE WITH DR. CARDOZA FOR ORTHO CONSULT. Impression Impression: Primary Impression: NEW T10 COMPRESSION FRACTURE Additional Impressions: UTI (urinary tract infection) Pancreatic cancer Disposition: ADMITTED INPATIENT Condition: Stable Decision to Admit Reason: Admit from ER (General) Decision to Admit/Date: Feb 04, 2017 Time/Decision to Admit Time: 20:35 Departure-Patient Inst. Referrals: DENY MONTAGUE MD (PCP/Family) Primary Care Physician LATRICIA UPTON DO Feb 04, 2017 19:17
[2017-02-04 19:28] LABS: RENAL EPITHELIAL CELLS,URINE 0-2 /HPF
[2017-02-04 19:39] LABS: BASOPHILS # (AUTO) 0.1 10^3/uL (0.0-0.1); BASOPHILS % (AUTO) 1 % (0-10); EOSINOPHILS # (AUTO) 0.8 10^3/uL (0.0-0.3); EOSINOPHILS % (AUTO) 8 % (0-10); LYMPHOCYTES # (AUTO) 1.9 X 10^3 (1.0-4.0); LYMPHOCYTES % (AUTO) 20 % (12-44); MEAN CORPUSCULAR HEMOGLOBIN 32 PG (25-34); MEAN CORPUSCULAR HGB CONC 33 G/DL (32-36); MEAN CORPUSCULAR VOLUME 96 FL (80-99); MEAN PLATELET VOLUME 9.1 FL (7.4-10.4); MONOCYTES # (AUTO) 1.7 X 10^3 (0.0-1.0); MONOCYTES % (AUTO) 17 % (0-12); NEUTROPHILS # (AUTO) 5.3 X 10^3 (1.8-7.8); NEUTROPHILS % (AUTO) 55 % (42-75); PLATELET COUNT 240 10^3/uL (130-400); RED BLOOD COUNT 3.01 10^6/uL (4.35-5.85); RED CELL DISTRIBUTION WIDTH 16.2 % (10.0-14.5); WHITE BLOOD COUNT 9.7 10^3/uL (4.3-11.0)
[2017-02-04 19:44] LABS: INR 1.1 (0.8-1.4); PROTHROMBIN TIME PATIENT 13.8 SEC (12.2-14.7)
[2017-02-04 19:53] LABS: ALBUMIN 3.2 G/DL (3.2-4.5); BILIRUBIN,TOTAL 0.7 MG/DL (0.1-1.0); CALCIUM 8.6 MG/DL (8.5-10.1); CREATININE SERUM 1.07 MG/DL (0.60-1.30); POTASSIUM 4.9 MMOL/L (3.6-5.0); TOTAL PROTEIN 6.1 G/DL (6.4-8.2)
--- NOTE | 2017-02-04 20:10 | Diagnostic Imaging Report ---
EXAMINATION: PA and lateral chest. INDICATION: Chest pain. COMPARISON: Correlation with CT examination from December 17, 2016. FINDINGS: Bibasilar atelectasis is demonstrated. There are some dystrophic appearing calcifications demonstrated at the right lung base. There is a left-sided port. Heart size is stable. Central pulmonary vascularity appears within normal limits no evidence of failure. There are chronic interstitial changes in the lungs. There is no large effusion. There is no pneumothorax. No acute osseous abnormality is demonstrated. AN IVC filter is noted and there are skin dior demonstrated within the right upper quadrant. IMPRESSION: Linear regions of density at the lung bases are most compatible with discoid atelectasis. There is no focal alveolar consolidation, effusion or pneumothorax. There are no findings to suggest failure. Dictated by: Dictated on workstation # [id number]
--- NOTE | 2017-02-04 20:25 | Diagnostic Imaging Report ---
INDICATION: Pancreatic cancer. Fall. Back pain. Comparison made with prior CT of the chest from December 17, 2016. Correlation also made with a previous CT abdomen and pelvis from January 23, 2017. FINDINGS: The alignment of the thoracic and lumbar spine appears appropriate. The patient's compression fracture at T12 is unchanged from previous examinations. There is however, now a new fracture demonstrated involving the inferior endplate of T10 which demonstrates acute fracture lines and a small degree of a paraspinal edema. This is compatible with a new acute T10 compression fracture. The remainder of the vertebral body heights appear maintained without additional acute fracture demonstrated. There is no evidence of significant thoracic canal stenosis. There is no significant retropulsion at the T10 level. Minimal retropulsion of T12 unchanged. Multilevel facet arthropathy is again demonstrated within the lumbar spine. Most significant canal stenosis appears moderate at both L3-L4 and L4-L5. Paraspinal soft tissues demonstrate no focal abnormality. There are atherosclerotic calcifications present within the aorta. Left kidney demonstrates a large cyst. A stent within the common bile duct is again noted. Pneumobilia is present. Pancreatic head mass is less well-defined on this noncontrast exam. An IVC filter is in place. Benign calcification within the right lung are unchanged. No pneumothorax or hemothorax is demonstrated. Note is made of a left sided internal jugular central venous line. IMPRESSION: 1. There is a new acute compression fracture demonstrated at T10 involving the inferior endplate with approximately 30% loss of height. The patient's T12 fracture is stable and unchanged. No additional fractures are evident. 2. Thoracic and lumbar spine alignment appears normal. 3. There is no significant thoracic canal stenosis or evidence of significant retropulsion. There is moderate narrowing of the central canal at L3-L4 and L4-L5. 4. Findings are otherwise not significantly changed from the patient's previous CT of the abdomen and pelvis with redemonstration of the pancreatic head mass in the common bile duct stent with pneumobilia. There is a stable left renal cyst and atherosclerotic calcifications within the aorta and stable benign granulomas within the right lung as well as calcified mediastinal lymph nodes. Dictated by: Dictated on workstation # [id number]
[2017-02-04] MEDS ORDERED: cefTRIAXone INJECTION 1,000 MG in NS (IVPB) 50 ML IV ONE (20:45)
[2017-02-04] MEDS ORDERED: NS (IVPB) 50 ML ONE (20:46)
[2017-02-04] MEDS ORDERED: cefTRIAXone 1 GM (ROCEPHIN) VIAL ONE (20:46)
[2017-02-04 21:43] VITALS: BP 155/70
[2017-02-04] MEDS ORDERED: fentaNYL PATCH 50 MCG (DURAGESIC) TOP SCH (22:00)
[2017-02-04] MEDS: NITROFURANTOIN 100 MG (MACROBID) CAPSULE PO SCH (22:19)
[2017-02-05] VITALS: BP 135/63
[2017-02-05 04:00] VITALS: BP 145/72
[2017-02-05 08:00] VITALS: BP 133/81
--- NOTE | 2017-02-05 08:25 | History & Physical ---
History of Present Illness History of Present Illness Reason for visit/HPI 81 year old female with pancreatic cancer admitted for intractable back pain secondary to T 10 compression fracture. Approximately 2 weeks ago patient was carrying groceries into her house and felt pain in her back. She went to via [facility] ER. Imaging did not show any acute fracture or injury. She did follow[place] at [facility] [place] and wanted to try a muscle relaxer. The muscle relaxer provided little benefit. Patient continued to take her oxycodone that she had for her chronic arthritic pain but it was not effective enough so she had her daughter bring in to via [facility] ER. No radiation of pain- location: middle of her back. No issues with bowel or bladder. A repeat CT was performed demonstrating a T10 compression fracture. The patient was admitted for intractable back pain, IV fentanyl seemed to help a little bit and she also had a 50 microgram fentanyl patch applied-she did not require any extra doses of fentanyl overnight. This morning she did report that her back hurt most of the night. Also, a urinalysis was done in the ER that did show concern for urinary tract infection. She was given one dose of Rocephin and will continue nitrofurantoin while awaiting urine culture. Orthopedics was consulted and will see patient in regards to her T10 compression fracture. Date of Admission Feb 04, 2017 at 21:19 I consulted on this patient on 02/05/17 08:19 Attending Physician Ang Montague MD Admitting Physician Ang Montague MD Consult Dr. [facility] Allergies and Home Medications Allergies Coded Allergies: codeine (Verified Adverse Reaction, Mild, NAUSEA, 07/30/08) meperidine (Verified Adverse Reaction, Mild, N/V, 01/17/10) morphine (Verified Adverse Reaction, Mild, NAUSEA, 07/30/08) Home Medications Doxazosin Mesylate 2 Mg Tablet, 2 MG PO DAILY, (Reported) Furosemide 20 Mg Tablet, 20 MG PO DAILY, (Reported) Lisinopril 40 Mg Tablet, 40 MG PO DAILY, (Reported) Metoprolol Succinate 100 Mg Tab.er.24h, 100 MG PO BID, (Reported) Metoprolol Succinate 50 Mg Tab.er.24h, 50 MG PO DAILY, (Reported) Oxycodone HCl 5 Mg Tablet, 5 MG PO Q6H, (Reported) Past Nteckbc-Eqkwnz-Lgfrxi Hx Patient Social History Alcohol Use: Denies Use Recreational Drug Use: No Smoking Status: Former Smoker Former smoker/When Quit: Dec 16, 2001 Type Used: Cigarettes Physical Abuse Screen: No Sexual Abuse: No Recent Foreign Travel: No Contact w/other who traveled: No Recent Hopitalizations: No Recent Infectious Disease Expo: No Immunizations Up To Date Tetanus Booster (TDap): Unknown Date of Influenza Vaccine: Oct 15, 2016 Seasonal Allergies Seasonal Allergies: No Surgeries HX Surgeries: Yes (BILATERAL FEM-POP TWICE WITH REVISION ON LEFT--GRAFT REMOVED FROM LEFT LEG 2007 , MULTIPLE ARTERIAL SURGERIES ON BILATERAL LEGS-- FEMORAL PATCH, ANGIOPLASTY, DEBRIDEMENTS; THROMBECTOMY; CATARACTS; IVC PLACEMENT ; CBD STENT; MULTIPLE COMPLICATIONS FROM SURGERIES--DVT/INFECTIONS/DEHISCENCE) Surgeries: Abdominal, Appendectomy, Eye Surgery, Gallbladder, Hysterectomy, Vascular Surgery Respiratory Hx Respiratory Disorders: No Cardiovascular Hx Cardiovascular Disorders: Yes (MULTIPLE INTERVENTIONS IN LEGS; MULTIPLE COMPLICATIONS FROM SURGERIES--DVT/INFECTION/DEHISCENCE; ASVD) Cardiac Disorders: Deep Vein Thrombosis, Hypertension, Peripheral Vascular Neurological Hx Neurological Disorders: No Reproductive System Hx Reproductive Disorders: No Sexually Transmitted Disease: No Genitourinary Hx Genitourinary Disorders: No Gastrointestinal Hx Gastrointestinal Disorders: Yes (PANCREATIC CANCER) Gastrointestinal Disorders: Gastroesophageal Reflux Musculoskeletal Hx Musculoskeletal Disorders: Yes Musculoskeletal Disorders: Degenerate Disk Disease, Arthritis Endocrine Hx Endocrine Disorders: No HEENT HX ENT Disorders: Yes (DENTURES) HEENT Disorders: Cataract Cancer Hx Cancer: Yes Cancer: Pancreatic Psychosocial Hx Psychiatric Problems: No Integumentary HX Skin/Integumentary Disorder: No (POST OP WOUND INFECTIONS, DEHISCENCE) Blood Transfusions Hx Blood Disorders: No Adverse Reaction to a Blood Tr: No Family Medical History Family Hx: Acute lymphoblastic leukemia (ALL) G8 BROTHER Alzheimer's disease 19 FATHER Completed stroke 19 MOTHER Diabetes mellitus 19 MOTHER Review of Systems Review of Systems General: No Chills, No Night Sweats HEENT: No Head Aches, No Visual Changes Pulmonary: No Dyspnea, No Cough Cardiovascular: No: Chest Pain, Palpitations Gastrointestinal: No: Abdominal Pain, Nausea, Vomiting Genitourinary: No Dysuria, No Frequency Musculoskeletal: back pain Neurological: Weakness, No: Change in speech, Numbness Physical Exam Vital Signs Vital Sign - Last 12Hours 02/04/17 18:20 Temp 98.7 Pulse 78 Resp 18 B/P (MAP) 147/80 Pulse Ox 93 O2 Delivery Room Air Capillary Refill : Less Than 3 SecondsLess Than 3 Seconds General Appearance: WD/WN, Mild Distress (decreased mentation) HEENT: PERRL/EOMI Neck: Full Range of Motion, Non Tender Respiratory: Chest Non Tender, Lungs Clear, Normal Breath Sounds, No Accessory Muscle Use, No Respiratory Distress Cardiovascular: Regular Rate, Rhythm, No Edema Gastrointestinal: Non Tender, Soft Rectal: Deferred Back: Decreased Range of Motion, Vertebral Tenderness (T10 area) Extremity: Normal Range of Motion, Non Tender, No Calf Tenderness, No Pedal Edema Neurologic/Psychiatric: Alert, Oriented x3, No Motor/Sensory Deficits Skin: Normal Color, Warm/Dry Assessment/Plan Assessment/Plan Assessment/Plan he is81 yo F intractable back pain due to T10 compression fracture- calcitonin nasal spray x 2 weeks, PT/OT, fentanyl patch 25mcg Dr. Hilton, orthopedics consulted acute cystitis w/o hematuria- rocephin x1, macrobid- awaiting culture HTN- monitor GERD- stable pancreatic cancer- on chemo DVT ppx: lovenox, scd Dispo: await orthopedics recommendations- pt not desiring surgery but does want her pain controlled so she can return home. Once pain controlled- march d/c to home this weekend. Problems: Clinical Quality Measures DVT/VTE Risk/Contraindication: Risk Factor Score Per Nursin RFS Level Per Nursing on Admit: 4+=Very High ANG MONTAGUE MD Feb 05, 2017 08:25
[2017-02-05] MEDS ORDERED: fentaNYL PATCH 25 MCG (DURAGESIC) ONE (08:29)
[2017-02-05] MEDS ORDERED: ONDA8TAB6 PO (08:33)
[2017-02-05] MEDS ORDERED: DIAZ5TAB3 PO (08:33)
[2017-02-05] MEDS: fentaNYL PATCH 25 MCG (DURAGESIC) TD SCH (08:35)
[2017-02-05] MEDS: ENOXAPARIN 40 MG/0.4 ML (LOVENOX) SYR SC SCH (09:22)
[2017-02-05] MEDS: NITROFURANTOIN 100 MG (MACROBID) CAPSULE PO SCH ×2 (09:22→20:37)
[2017-02-05] MEDS ORDERED: ONDANSETRON 4 MG (ZOFRAN) ORAL DISSOLVE TAB PO PRN (09:30)
[2017-02-05] MEDS ORDERED: DIAZEPAM 5 MG (VALIUM) TABLET PO PRN (09:30)
[2017-02-05] MEDS: CALCITONIN NASAL 200 INTLU/AC (FORTICAL) 3.7 ML BTL SCH (09:35)
[2017-02-05] MEDS ORDERED: PATIENT MAY USE OWN MEDS, ALL MC SCH (09:45)
[2017-02-05] MEDS: doxAzosin 2 MG (CARDURA) TAB PO SCH ×2 (10:34→20:38)
[2017-02-05] MEDS: FUROSEMIDE 20 MG (LASIX) TAB PO SCH (10:34)
[2017-02-05 12:00] VITALS: BP 152/82
[2017-02-05] MEDS ORDERED: DIAZEPAM 5 MG (VALIUM) TABLET PO NR (12:45)
--- NOTE | 2017-02-05 12:49 | Consultation ---
History of Present Illness History of Present Illness Patient Consulted On([place]/time) 02/05/17 12:41 Date of Admission 02/04/2017 History of Present Illness This 81 year old female hurt her back carrying groceries. She had some plain x- rays about 2 weeks about and had a T12 fracture then. Her pain is worse and she was admitted for pain control and an UTI. CT scanning last night showed a new T10 compression fracture, and the T12 fracture looked unchanged. She denies any numbness, weakness, tingling, radicular pain, or loss of bowel/ bladder function. Allergies and Home Medications Allergies Coded Allergies: codeine (Verified Adverse Reaction, Mild, NAUSEA, 07/30/08) meperidine (Verified Adverse Reaction, Mild, N/V, 01/17/10) morphine (Verified Adverse Reaction, Mild, NAUSEA, 07/30/08) Home Medications Diazepam 5 Mg Tablet, 5 MG PO Q8H PRN for ANXIETY, (Reported) Doxazosin Mesylate 2 Mg Tablet, 2 MG PO BID, (Reported) Furosemide 20 Mg Tablet, 20 MG PO Q48H, (Reported) Lisinopril 40 Mg Tablet, 40 MG PO DAILY, (Reported) Metoprolol Succinate 100 Mg Tab.er.24h, 100 MG PO BID, (Reported) Metoprolol Succinate 50 Mg Tab.er.24h, 50 MG PO HS, (Reported) TAKES ALONG WITH 100MG TABLET AT BEDTIME FOR A TOTAL BEDTIME DOSE OF 150MG Ondansetron HCl 8 Mg Tablet, 8 MG PO Q8H PRN for NAUSEA/VOMITING, (Reported) Oxycodone HCl 5 Mg Tablet, 5 MG PO Q4H PRN for PAIN, (Reported) Past Zximmeu-Azqqde-Mzcsnj Hx Patient Social History Alcohol Use: Denies Use Recreational Drug Use: No Smoking Status: Former Smoker Type Used: Cigarettes Former Smoker/When Quit: Dec 16, 2001 Recent Foreign Travel: No Contact w/Someone Who Travel: No Recent Infectious Disease Expo: No Recent Hopitalizations: No Physical Abuse Screen: No Sexual Abuse: No Immunizations Up To Date Tetanus Booster (TDap): Unknown Date of Influenza Vaccine: Oct 15, 2016 Seasonal Allergies Seasonal Allergies: No Surgeries HX Surgeries: Yes (BILATERAL FEM-POP TWICE WITH REVISION ON LEFT--GRAFT REMOVED FROM LEFT LEG 2007 , MULTIPLE ARTERIAL SURGERIES ON BILATERAL LEGS-- FEMORAL PATCH, ANGIOPLASTY, DEBRIDEMENTS; THROMBECTOMY; CATARACTS; IVC PLACEMENT ; CBD STENT; MULTIPLE COMPLICATIONS FROM SURGERIES--DVT/INFECTIONS/DEHISCENCE) Surgeries: Abdominal, Appendectomy, Eye Surgery, Gallbladder, Hysterectomy, Vascular Surgery Respiratory Hx Respiratory Disorders: No Cardiovascular Hx Cardiac Disorders: Yes (MULTIPLE INTERVENTIONS IN LEGS; MULTIPLE COMPLICATIONS FROM SURGERIES--DVT/INFECTION/DEHISCENCE; ASVD) Cardiac Disorders: Deep Vein Thrombosis, Hypertension, Peripheral Vascular Neurological Hx Neurological Disorders: No Reproductive System Hx Reproductive Disorders: No Sexually 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, Menopausal Genitourinary Hx Genitourinary Disorders: No Gastrointestinal Hx Gastrointestinal Disorders: Yes (PANCREATIC CANCER) Gastrointestinal Disorders: Gastroesophageal Reflux Musculoskeletal Hx Musculoskeletal Disorders: Yes Musculoskeletal Disorders: Degenerate Disk Disease, Arthritis Endocrine Hx Endocrine Disorders: No HEENT HX ENT Disorders: Yes (DENTURES) HEENT Disorders: Cataract Cancer Hx Cancer: Yes Cancer: Pancreatic Psychosocial Hx Psychiatric Problems: No Integumentary HX Skin/Integumentary Disorder: No (POST OP WOUND INFECTIONS, DEHISCENCE) Blood Transfusions Hx Blood Disorders: No Adverse Reaction to a Blood Tr: No Family Medical History Family Medial History: Acute lymphoblastic leukemia (ALL) G8 BROTHER Alzheimer's disease 19 FATHER Completed stroke 19 MOTHER Diabetes mellitus 19 MOTHER Review of Systems-General Constitutional: no symptoms reported Cardiovascular: no symptoms reported Genitourinary: other (Being treated for UTI) Musculoskeletal: see HPI, back pain Psychiatric/Neurological: No Symptoms Reported, See HPI Physical Exam-General Problems Physical Exam Vital Signs Vital Sign - Last 12Hours 02/04/17 18:20 Temp 98.7 Pulse 78 Resp 18 B/P (MAP) 147/80 Pulse Ox 93 O2 Delivery Room Air Capillary Refill : Less Than 3 SecondsLess Than 3 Seconds General Appearance: no apparent distress Neck: non-tender, full range of motion Respiratory: chest non-tender Back: decreased range of motion, muscle spasm, vertebral tenderness Extremities: normal range of motion, non-tender, normal capillary refill Neurologic/Psychiatric: no motor/sensory deficits, normal mood/affect, oriented x [address] SCAN-- there is a T10 and T12 compression fracture Assessment/Plan Assessment/Plan Admission Diagnosis/Plan T10 and T12 compression fractures-- I talked to Dr. Chandra and he wanted an MRI scan to tell the age of these fractures. It looks like the T10 is acute. T12 may be old and healed. That way he can tell if he needs to do a kyphoplasty on both or just T10. She would need to go off of the Lovenox Wednesday in case he does a kyphoplasty Wednesday. I ordered an MRI with Valium 5 mg electronics design engineer to MRI. I called the field evidence technician and they will get her on the schedule this afternoon. Clinical Quality Measures DVT/VTE Risk/Contraindication: Risk Factor Score Per Nursin RFS Level Per Nursing on Admit: 4+=Very High SEAN CARDOZA MD Feb 05, 2017 12:49
--- NOTE | 2017-02-05 13:49 | Occupational Therapy Eval ---
OT Evaluation-General/PLF Medical Diagnosis Admission Date Feb 04, 2017 at 21:30 Onset Date: Feb 04, 2017 Height/Weight Height (Feet): 5 Height (Inches): 9.00 Weight (Pounds): 179 Weight (Ounces): 11.2 Precautions Precautions/Isolations: Fall Prevention, Standard Precautions Safety Interventions: Bed Exit Alarm Referral Physician: Hugh Medical History Pertinent Medical History: Arthritis, GERD, HTN Additional Medical History DVT, PVD, pancreatic cancer, DDD, bilateral fem-pop Current History Pt states she hurt her back two weeks ago while carrying groceries. Reviewed History: Yes Social History Home: Single Level Current Living Status: Alone Entry Into Home: Ramp Daughter is able to assist with transportation at times. ADL-Prior Level of Function ADL PLOF Comments Pt states she has been independent with ADLs and mobility. Uses FWW as needed. Pt drives and does the housework. Does not get into shower, does sponge bath only. Pt reports difficulty completing tasks recently secondary to pain. DME/Equipment: Toilet/[address] Self: Yes OT Current Status Subjective Spoke with RN prior to session. She states pt has been sitting up in chair and getting up to BSC with assistance, is okay for therapy at this time. Pt agrees to OT, reports 6/10 back pain. Mental Status/Objective Patient Orientation: Person, Place, Situation Current Glasses/Contacts: Yes Upper Extremity ROM Grossly WFL Upper Extremity Coordination Intact Upper Extremity Sensation Pt has no reports of numbness/tingling. Upper Extremity Strength Not formally assessed, but pt appears to have decreased bilateral UE strength. ADL-Treatment ADL-Current Pt performed supine to sit with minimal assistance using log rolling technique. Don slippers with assistance while seated EOB. Sit to stand with minimal assistance. Transfer EOB<-> BSC with minimal assistance. Sit to supine with minimal assistance. Pt resting in bed with needs met after session. Functional [place] Measure 0=Not Assessed/NA 4=Minimal Assistance 1=Total Assistance 5=Supervision or Setup 2=Maximal Assistance 6=Modified [place] 3=Moderate Assistance 7=Complete IndependenceIRFPAI Quality Coding Scale 6 Independent with activity with or without an assistive device 5 Patient requires set up or clean up by helper. Patient completes activity by themselves 4 Supervision or touching assist (CGA). [place] provide cues , steadying assist 3 The helper provides less than half the effort to complete the activity 2 The helper provides more than half the effort to complete the activity 1 Dependent. The helper does all the effort to complete an activity 7 Patient refused to complete or attempt activity 9 The patient did not perform the activity before the current illness or injury 88 Not attempted due to Medical conditions or safety concerns Eating (FIM): 5 (Pt reports feeding self. Occasional assist to open containers) Toilet/Commode Transfer (FIM): 4 Education OT Patient Education: Rehab process Teaching Recipient: Patient Teaching Methods: Discussion Response to Teaching: Verbalize Understanding OT Short Term Goals Short Term Goals 1=Demonstrate adherence to instructed precautions during ADL tasks. 2=Patient will verbalize/demonstrate understanding of assistive devices/ modifications for ADL. 3=Patient will improve strength/tolerance for activity to enable patient to perform ADL's. OT Halfway Goals Halfway Goals Time Frame: Feb 12, 2017 Eating (FIM): 6 Grooming(FIM): 6 Bathing(FIM): 5 Lower Body Dressing(FIM): 5 Toileting(FIM): 6 Toilet/Commode Transfer(FIM): 6 Additional Goals: 1-Demonstrate ADL Tasks, 2-Verbalize Understanding, 3- ImproveStrength/Yordy 1=Demonstrate adherence to instructed precautions during ADL tasks. 2=Patient will verbalize/demonstrate understanding of assistive devices/ modifications for ADL. 3=Patient will improve strength/tolerance for activity to enable patient to perform ADL's. OT Education/Plan Problem List/Assessment Assessment: Decreased Activ Tolerance, Dependent Transfers, Impaired Self-Care Skills Pt to benefit from skilled OT intervention for ADL training, transfers, strengthening, adaptive equipment training as needed, and home safety education to maximize level of function and allow safe discharge. Discharge Recommendations Plan/Recommendations: Continue POC Treatment Plan/Plan of Care Treatment,Training & Education: Yes Patient would benefit from OT for education, treatment and training to promote independence in ADL's, mobility, safety and/or upper extremity function for ADL' s. Plan of Care: ADL Retraining, Functional Mobility, UE Funct Exercise/Act Treatment Duration: Feb 12, 2017 # of days/week 5 Visits Per Week: 5 Agreement: Yes Rehab Potential: Fair Time/GCodes Start Time: 10:55 Stop Time: 11:13 Total Time Billed (hr/min): 18 Billed Treatment Time 1 visit, EVL(18minutes) PT/OT Therapy GCodes Therapy Functional Limitation: Occupational Therapy Test(s)/Tool used to determine: FIM Functional Limitation-Current Charge Code: SELFCUR Modifier: CK Functional Limitation-Goal Charge Code: SELFGOAL Modifier: CECE DESHPANDE OT Feb 05, 2017 13:49
[2017-02-05] MEDS ORDERED: GADOBUTROL 10 MMOL/10 ML (GADAVIST) VIAL IV ONE (14:30)
--- NOTE | 2017-02-05 14:42 | Diagnostic Imaging Report ---
INDICATION: Back pain began two weeks ago carrying heavy groceries. Patient is on chemotherapy for pancreatic cancer. COMPARISON: Comparison with CT scan of the thoracic spine from 02/04/2017. FINDINGS: There is compression fracture at T10 involving the inferior endplate. There is some hemorrhage along the fracture line within the vertebral body consistent with history of recent onset. This does correlate with the CT finding. There is an old fracture of the superior endplate of T12 as well as minimal old fracture of the superior endplate of T9. No marrow changes are seen or bony destruction that would indicate metastatic disease on this noncontrasted study. The thoracic spinal cord appears normal. There is no spinal stenosis. No evidence of posterior pulsion of the endplate of T10. The paraspinal soft tissues appear normal. IMPRESSION: 1. Finding consistent with acute fracture of the inferior endplate of T10 vertebral body. This does appear that it would be amenable to kyphoplasty. 2. Old compression fracture noted at the superior endplate of T12 and T9 which are healed. Dictated by: Dictated on workstation # [id number]
[2017-02-05] MEDS: fentaNYL INJECTION 100 MCG/2 ML AMP IV PRN ×2 (14:50→20:48)
[2017-02-05 15:40] VITALS: BP 149/84
--- NOTE | 2017-02-05 15:45 | Physical Therapy Evaluation ---
PT Evaluation-General Medical Diagnosis Admission Date Feb 04, 2017 at 21:30 Medical Diagnosis: intractable back pain Onset Date: Feb 04, 2017 Therapy Diagnosis Therapy Diagnosis: decreased functional mobility Height/Weight Height (Feet): 5 Height (Inches): 9.00 Weight (Pounds): 179 Weight (Ounces): 11.2 Precautions Precautions/Isolations: Fall Prevention, Standard Precautions Weight Bear Status Weight Bearing Restriction: Full Weight Bearing Location Restriction: LE Bilateral Referral Physician: Hugh Reason for Referral: Evaluation/Treatment Medical History Pertinent Medical History: Arthritis, GERD, HTN Additional Medical History former smoker, (B) fem-pop x 2 with revision on (L), multiple arterial surgeries (B) legs, IVC placement, CBD stent, multiple complications from Sx ( DVT, infectoin, dehisence), HTN, PVD, pancreatic CA, DDD Current History 2 weeks ago, Pt carrying groceries and experienced pain in back. To ER on due to continued intractable pain, found to have T10 and T12 compression fractures (MRI done today to determine age of fractures). Possible kyphoplasty on Wednesday. Reviewed History: Yes Social History Home: Single Level Current Living Status: Alone Entry Into Home: Ramp Prior/Core FIM Prior Level of Function Functional [place] Measure 0=Not Assessed/NA 4=Minimal Assistance 1=Total Assistance 5=Supervision or Setup 2=Maximal Assistance 6=Modified [place] 3=Moderate Assistance 7=Complete [place] Bed Mobility: 6 Transfers (B,C,W/C) (FIM): 6 Gait: 6 utilizes QC outside "on uneven ground" and FWW in home. Pt report she walks "laps" in her living room for exercise. PT Evaluation-Current Subjective Pt in bed, agreeable. Reports 5-6/10 mid back pain after returning from MRI. Pain Numeric Pain Scale: 6 Location: Posterior Location Body Site: Back Pain Description: Ache Pt/Family Goals home (I) Objective Patient Orientation: Person, Place, Time, Situation Problem Solving: Good ROM/Strength ROM Upper Extremities See OT ROM Lower Extremities WFL for functional mobility Strength Upper Extremities See OT Strenght Lower Extremities Grossly 3+/5 Integumentary/Posture Integumentary See nurses' notes Bowel Incontinence: No Bladder Incontinence: No Posture kyphotic Neuromuscular (Tone, Coordination, Reflexes) grossly intact Sensory Vision: Wears Glasses Hearing: Functional Transfers Functional [place] Measure 0=Not Assessed/NA 4=Minimal Assistance 1=Total Assistance 5=Supervision or Setup 2=Maximal Assistance 6=Modified [place] 3=Moderate Assistance 7=Complete [place] Transfers (B, C, W/C) (FIM): 4 Supine to/from Sit: 4 Sit to/from Stand: 5 Gait Mode of Locomotion: Walk Anticipated Mode of Locomotion: Walk Gait (FIM): 5 Distance (FIM): 3=150 ft Distance: 150 Gait Level of Assist: 5 Gait Persons Needed: 1 Gait Assistive Device: FWW Comments/Gait Description Slow, steady gait with FWW, kyphotic posture. Balance Sitting Static: Normal Sitting Dynamic: Normal Standing Static: Good Standing Dynamic: Good Treatment Eval Assessment/Needs Pt is a 81 y.o. female with decreased functional mobility due to intractable back pain from compression fracture. Pt would benefit from skilled PT to restore (I) with functional mobility for safe return home. Possible kyphoplasty on Wednesday; PT will follow post procedure to monitor for change in functional mobility. G-codes based on level of assist required. Rehab Potential: Good PT Convertible Sofa Bedspring Tester Goals Residential Goals PT Residential Goals Time Frame: Feb 12, 2017 Transfers (B,C,W/C) (FIM): 6 Gait (FIM): 6 Gait distance (FIM): 3=150 ft Distance: 150 Gait Level of Assist: 6 PT goal established to allow safe return home (I) PT Plan Problem List Problem List: Activity Tolerance, Functional Strength, Gait, Transfer, Bed Mobility Treatment/Plan Treatment Plan: Continue Plan of Care Treatment Plan: Bed Mobility, Education, Functional Activity Yordy, Functional Strength, Gait, Therapeutic Exercise, Transfers Treatment Duration: Feb 12, 2017 # of days/week 5-6 Visits Per Week: 5-6 Pt/Family Agrees w/Plan: Yes Safety Risks/Education Teaching Recipient: Patient Teaching Methods: Discussion Response to Teaching: Verbalize Understanding PT POC Discharge Recommendations Plan continue to assess Therapy D/C Recommendations: Home Independently, Physical Therapy Home Care Time/GCodes Time In: 1500 Time Out: 1521 Total Billed Treatment Time: 21 Total Billed Treatment 1, EVLOWC x 21' G Codes Necessary: Yes PT/OT Therapy GCodes Therapy Functional Limitation: Physical Therapy Test(s)/Tool used to determine: Level of Assistance Scale Functional Limitation-Current Charge Code: MOBCUR Modifier: CJ Functional Limitation-Goal Charge Code: MOBGOAL Modifier: CI MCNEIL,CARLOS DPT Feb 05, 2017 15:45
[2017-02-05 20:20] VITALS: BP 158/82
[2017-02-05] MEDS: meTOproloL SUCCINATE 50 MG (TOPROL XL) TAB PO SCH (20:37)
[2017-02-06] VITALS: BP 104/64
[2017-02-06 04:00] VITALS: BP 136/71
[2017-02-06 06:03] LABS: MEAN PLATELET VOLUME 9.3 FL (7.4-10.4); RED BLOOD COUNT 2.84 10^6/uL (4.35-5.85); RED CELL DISTRIBUTION WIDTH 16.1 % (10.0-14.5); WHITE BLOOD COUNT 7.2 10^3/uL (4.3-11.0)
[2017-02-06 06:16] LABS: ALANINE AMINOTRANSFERASE 9 U/L (0-55); ALBUMIN 2.8 G/DL (3.2-4.5); ANION GAP 7 MMOL/L (5-14); ASPARTATE AMINO TRANSFERASE 16 U/L (5-34); BILIRUBIN,TOTAL 0.8 MG/DL (0.1-1.0); BLOOD UREA NITROGEN 19 MG/DL (7-18); BUN/CREATININE RATIO 21; CALCIUM 8.4 MG/DL (8.5-10.1); CARBON DIOXIDE 25 MMOL/L (21-32); CHLORIDE 107 MMOL/L (98-107); CREATININE SERUM 0.89 MG/DL (0.60-1.30); GFR ESTIMATED > 60; GLUCOSE 87 MG/DL (70-105); POTASSIUM 4.3 MMOL/L (3.6-5.0); SODIUM 139 MMOL/L (135-145); TOTAL PROTEIN 5.3 G/DL (6.4-8.2)
[2017-02-06 08:00] VITALS: BP 155/58
[2017-02-06] MEDS: CALCITONIN NASAL 200 INTLU/AC (FORTICAL) 3.7 ML BTL SCH (08:28)
[2017-02-06] MEDS: NITROFURANTOIN 100 MG (MACROBID) CAPSULE PO SCH ×2 (08:29→20:09)
[2017-02-06] MEDS: ENOXAPARIN 40 MG/0.4 ML (LOVENOX) SYR SC SCH (08:29)
[2017-02-06] MEDS: doxAzosin 2 MG (CARDURA) TAB PO SCH ×2 (08:29→20:11)
[2017-02-06] MEDS: LISINOPRIL 40MG TABLET PO SCH (08:30)
[2017-02-06] MEDS: fentaNYL INJECTION 100 MCG/2 ML AMP IV PRN (09:50)
--- NOTE | 2017-02-06 10:51 | Physical Therapy Daily Note ---
PT Daily Note-Current Subjective Patient in recliner pre tx, agrees to PT, states she has 7/10 pain in her back. Patient is supposed to have a kyphoplasty on Wednesday. Appearance Patient in recliner post tx with nurse call, phone, tray, all needs met. Mental Status Patient Orientation: Normal For Age Transfers Functional [place] Measure 0=Not Assessed/NA 4=Minimal Assistance 1=Total Assistance 5=Supervision or Setup 2=Maximal Assistance 6=Modified [place] 3=Moderate Assistance 7=Complete IndependenceIRFPAI Quality Coding Scale 6 Independent with activity with or without an assistive device 5 Patient requires set up or clean up by helper. Patient completes activity by themselves 4 Supervision or touching assist (CGA). [place] provide cues , steadying assist 3 The helper provides less than half the effort to complete the activity 2 The helper provides more than half the effort to complete the activity 1 Dependent. The helper does all the effort to complete an activity 7 Patient refused to complete or attempt activity 9 The patient did not perform the activity before the current illness or injury 88 Not attempted due to Medical conditions or safety concerns Transfers (B, C, W/C) (FIM): 5 Sit to/from Stand: 5 appropriate safety and hand placement Gait Training Gait (FIM): 5 Distance: 200' Gait Level of Assist: 5 Gait Persons Needed: 1 Gait Assistive Device: FWW slow, antalgic Exercises Seated Therapy Exercises: Ankle pumps, Long arc quads Seated Reps: 20 Treatments transfers, ambulation, functional strengthening, patient was toileted once Assessment Current Status: Fair Progress improving endurance, still considerable pain, patient scheduled for surgery on wednesday PT Knowledge Analyst Goals Fdc Goals PT Fdc Goals Time Frame: Feb 12, 2017 Transfers (B,C,W/C) (FIM): 6 Gait (FIM): 6 Gait distance (FIM): 3=150 ft Distance: 150 Gait Level of Assist: 6 PT Plan Problem List Problem List: Activity Tolerance, Functional Strength, Safety, Balance, Gait, Transfer, Bed Mobility, ROM Treatment/Plan Treatment Plan: Continue Plan of Care Treatment Plan: Bed Mobility, Education, Functional Activity Yordy, Functional Strength, Gait, Therapeutic Exercise, Transfers Treatment Duration: Feb 12, 2017 Visits Per Week: 5-6 Safety Risks/Education Patient Education: Gait Training, Transfer Techniques, Safety Issues Teaching Recipient: Patient Teaching Methods: Demonstration, Discussion Response to Teaching: Reinforcement Needed Time/GCodes Time In: 1032 Time Out: 1045 Total Billed Treatment Time: 13 Total Billed Treatment 1 visit GT 13 min PT/OT Therapy GCodes Therapy Functional Limitation: Physical Therapy Test(s)/Tool used to determine: Level of Assistance Scale Functional Limitation-Current Charge Code: MOBCUR Modifier: CJ Functional Limitation-Goal Charge Code: MOBGOAL Modifier: ZION WARREN PT Feb 06, 2017 10:51
[2017-02-06 12:00] VITALS: BP 107/66
[2017-02-06 16:15] VITALS: BP 114/70
[2017-02-06] MEDS: meTOproloL SUCCINATE 50 MG (TOPROL XL) TAB PO SCH (20:10)
[2017-02-06 23:45] VITALS: BP 117/66
[2017-02-07 08:00] VITALS: BP 122/62
--- NOTE | 2017-02-07 08:11 | Progress Note (SOAP) ---
Subjective Subjective/Events-last exam new T10 compression fracture. Patient states pain is down to 2. Patient states when she moves around hurts. Patient voices no other complaints Objective Exam Vital Signs Date Time Temp Pulse Resp B/P (MAP) Pulse Ox O2 Delivery O2 Flow Rate FiO2 02/06/17 23:45 97.8 67 18 117/66 93 Room Air 02/06/17 16:15 96.3 71 20 114/70 93 Room Air 02/06/17 12:00 97.1 81 20 107/66 91 Room Air I & O 02/07/17 07:00 Intake Total 850 ml Output Total 1200 ml Balance -350 ml Capillary Refill : Less Than 3 SecondsLess Than 3 Seconds General Appearance: No Apparent Distress, WD/WN HEENT: Normal ENT Inspection Neck: Normal Inspection Respiratory: Chest Non Tender, Lungs Clear, Normal Breath Sounds, No Accessory Muscle Use, No Respiratory Distress Cardiovascular: Regular Rate, Rhythm, No Murmur Gastrointestinal: non tender, soft Results Lab Microbiology 02/04/17 Urine Culture - Final, Complete Assessment/Plan Assessment/Plan Assess & Plan/Chief Complaint new T10 compression fracture. Urine culture contaminations 3 gram-positive organisms. Patient hurts when he moves around Clinical Quality Measures DVT/VTE Risk/Contraindication: Risk Factor Score Per Nursin RFS Level Per Nursing on Admit: 4+=Very High CAIO OJEDA DO Feb 07, 2017 08:10
[2017-02-07] MEDS: doxAzosin 2 MG (CARDURA) TAB PO SCH ×2 (08:40→20:32)
[2017-02-07] MEDS: FUROSEMIDE 20 MG (LASIX) TAB PO SCH (08:41)
[2017-02-07] MEDS: LISINOPRIL 40MG TABLET PO SCH (08:42)
[2017-02-07] MEDS: NITROFURANTOIN 100 MG (MACROBID) CAPSULE PO SCH ×2 (09:12→20:33)
[2017-02-07] MEDS: CALCITONIN NASAL 200 INTLU/AC (FORTICAL) 3.7 ML BTL SCH (09:21)
--- OUTSIDE RECORDS SUMMARY | 2017-02-07 10:47 | XMS REPORT | Continuity of Care Document ---
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 FORM SETTER METAL ROAD FORMS (CURRENT) DRUG THERAPY 02/24/2011 Ot 250.00 02/24/2011 Ot 401.9 02/24/2011 Ot 443.9 02/24/2011 Ot 530.81 02/24/2011 Ot 998.11 02/24/2011 Ot V15.82 03/05/2011 Ot 701.5 03/05/2011 Ot 998.11 03/05/2011 Ot 998.89 03/05/2011 Ot E878.8 10/28/2011 Ot 401.9 HYPERTENSION NOS 10/28/2011 Ot 682.2 CELLULITIS OF TRUNK 10/28/2011 Ot 789.09 ABDOMINAL PAIN, OTHER SPECIFIED SITE 10/28/2011 Ot 998.11 HEMOR COMPLIC A PROCEDURE 10/28/2011 Ot 998.12 HEMATOMA COMPLIC A PROC 10/28/2011 Ot V12.51 HX-VENOUS THROMBOSIS EMBOLISM 11/28/2011 Ot 285.1 AC POSTHEMORRHAG ANEMIA 11/28/2011 Ot 285.9 ANEMIA NOS 11/28/2011 Ot 440.20 ATHEROSCLEROSIS [place]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 11/28/2011 Ot 440.4 CHRONIC TOTAL OCCLUSION OF ARTERY OF THE 11/28/2011 Ot 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 11/28/2011 Ot 782.1 NONSPECIF SKIN ERUPT NEC 11/28/2011 Ot 996.62 INFECT INFLAM REACT DUE TO OTH VASC DE 11/28/2011 Ot 996.74 OTH COMPL DUE TO OT VASCULAR DEVICE,IMP 11/28/2011 Ot 998.12 HEMATOMA COMPLIC A PROC 10/04/2014 INGRID COOPER MD Ot 401.9 HYPERTENSION NOS 10/04/2014 INGRID COOPER MD Ot 440.21 ATHEROSCL [place] ARTER EXTREM W INTERMIT 10/04/2014 INGRID COOPER MD Ot 530.81 ESOPHAGEAL REFLUX 10/04/2014 INGRID COOPER MD Ot V12.55 PERSONAL HISTORY OF PULMONARY EMBOLISM 10/04/2014 INGRID COOPER MD Ot V15.82 HISTORY OF TOBACCO USE 10/04/2014 INGRID COOPER MD Ot V45.89 POSTSURGICAL STATES NEC 10/04/2014 INGRID COOPER MD Ot V58.69 OTH MED,LT,CURRENT USE 11/27/2014 Ot 998.13 11/27/2014 Ot V58.61 11/27/2014 Ot V58.63 11/27/2014 Ot V72.83 11/27/2014 Ot V74.8 11/27/2014 Ot 890.0 11/27/2014 Ot E000.8 11/27/2014 Ot E928.9 11/27/2014 Ot 701.5 11/27/2014 Ot V72.63 11/27/2014 Ot V72.81 11/27/2014 Ot 401.9 11/27/2014 Ot 785.1 11/27/2014 Ot V12.59 11/27/2014 Ot V15.82 11/27/2014 JENNIFER WOLFE MD Ot V76.12 12/12/2014 JENNIFER WOLFE MD Ot 401.9 HYPERTENSION NOS 12/12/2014 JENNIFER WOLFE MD Ot 577.9 PANCREATIC DISEASE NOS 12/12/2014 JENNIFER WOLFE MD Ot V12.55 PERSONAL HISTORY OF PULMONARY EMBOLISM 12/12/2014 JENNIFER WOLFE MD Ot V58.69 OTH MED,LT,CURRENT USE 12/18/2014 XIN PATE Ot 157.9 12/21/2014 KENNETH LAZO, INGRID S Ot 157.9 MALIG LEX PANCREAS NOS 12/25/2014 YANETH ALZO, JENNIFER Hernandez Ot 577.9 12/25/2014 HERLINDA, XIN N Ot 157.9 12/27/2014 YANETH LAZO, JENNIFER Hernandez Ot 272.4 12/27/2014 YANETH LAZO, JENNIFER Hernandez Ot 414.01 12/27/2014 YANETH LAZO, JENNIFER Hernandez Ot 786.50 12/27/2014 YANETH LAZO, JENNIFER Hernandez Ot 789.00 12/27/2014 YANETH LAZO, JENNIFER Hernandez Ot 793.11 12/28/2014 ZAYRA ELIZONDO MD Ot 157.9 MALIG LEX PANCREAS NOS 12/28/2014 ZAYRA ELIZONDO MD Ot 785.1 PALPITATIONS 12/28/2014 ZARYA ELIZONDO MD Ot 786.50 CHEST PAIN NOS 12/28/2014 ZAYRA ELIZONDO MD Ot V58.69 OT MED,LT,CURRENT USE 01/03/2015 YANETH LAZO, JENNIFER Hernandez Ot 577.9 01/10/2015 HERLINDAXIN N Ot 157.9 02/05/2015 Ot 288.60 02/05/2015 Ot 780.60 02/11/2015 Ot 288.60 02/11/2015 Ot 780.60 02/19/2015 XIN PATE N Ot 157.9 03/14/2015 HERLINDAXIN N Ot 157.9 MALIG LEX PANCREAS NOS 03/14/2015 HERLINDAXIN N Ot V58.11 ENCOUNTER FOR ANTINEOPLASTIC CHEMOTHERAP 03/15/2015 XIN PATE N Ot 157.9 03/18/2015 HERLINDAXIN BRAUN N Ot 157.9 03/18/2015 HERLINDA, BOBAN N Ot 157.9 03/19/2015 HERLINDA BOBAN N Ot 157.9 03/19/2015 MORENITA FARRIS S STOCK TURNER Ot 157.0 03/19/2015 FARRISMORENITA S STOCK TURNER Ot 196.9 03/19/2015 FARRISMORENITA S STOCK TURNER Ot 285.9 03/19/2015 FARRISMORENITA S STOCK TURNER Ot V58.69 05/08/2015 FARRISMORENITA S STOCK TURNER Ot 157.0 05/08/2015 FARRISGERAAH S STOCK TURNER Ot 196.9 05/08/2015 MORENTIA FARRIS STOCK TURNER Ot 285.9 05/08/2015 FARRISMORENITA Mckeon S STOCK TURNER Ot V58.69 05/10/2015 MORENITA FARRIS S STOCK TURNER Ot 157.0 05/10/2015 FARRISMORENITA Mckeon S STOCK TURNER Ot 196.9 05/10/2015 FARRISMORENITA Mckeon S STOCK TURNER Ot 285.9 05/10/2015 FARRISMORENITA Mckeon S STOCK TURNER Ot V58.69 05/22/2015 HERLINDA, BOBAN N Ot 157.0 05/22/2015 HERLINDA, BOBAN N Ot 196.9 05/22/2015 HERLINDA, BOBAN N Ot 285.9 05/22/2015 HERLINDA, BOBAN N Ot V58.11 05/22/2015 HERLINDA, BOBAN N Ot V58.69 05/22/2015 FARRISMORENITA Mckeon S STOCK TURNER Ot 157.9 05/23/2015 HERLINDA, BOBAN N Ot 157.0 05/23/2015 HERLINDA, BOBAN N Ot 196.9 05/23/2015 HERLINDA, BOBAN N Ot 285.9 05/23/2015 HERLINDA, BOBAN N Ot V58.11 05/23/2015 HERLINDA, BOBAN N Ot V58.69 05/23/2015 FARRISMORENITA Mckeon STOCK TURNER Ot 157.9 06/16/2015 HERLINDA, BOBAN N Ot 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 PANCREAS HEAD 06/16/2015 HERLINDA, BOBAN N Ot 196.9 MAL LEX LYMPH NODE NOS 06/16/2015 HERLINDA, BOBAN N Ot 285.9 ANEMIA NOS 06/16/2015 HERLINDA, BOBAN N Ot V58.11 ENCOUNTER FOR ANTINEOPLASTIC CHEMOTHERAP 06/16/2015 HERLINDA, BOBAN N Ot V58.69 OT MED,LT,CURRENT USE 06/18/2015 HERLINDA, BOBAN N Ot 157.0 06/18/2015 HERLINDA, BOBAN N Ot 196.9 06/18/2015 HERLINDA, BOBAN N Ot 285.9 06/18/2015 HERLINDA, BOBAN N Ot V58.11 06/18/2015 HERLINDA, BOBAN N Ot V58.69 06/19/2015 MESSI LAZO, ROBERT Ot 157.0 06/19/2015 ROBERT SWENSON MD Ot 196.9 06/19/2015 MESSI LAZO, GUZMANDEB Ot 285.9 06/19/2015 MESSI LAZO, GUZMANDiamondKEVAN Ot V58.69 06/25/2015 HERLINDA, BOBAN N Ot 157.0 06/25/2015 HERLINDA, BOBAN N Ot 196.9 06/25/2015 HERLINDA, BOBAN N Ot 285.9 06/25/2015 HERLINDA, BOBAN N Ot V58.11 06/25/2015 HERLINDA, BOBAN N Ot V58.69 06/26/2015 HERLINDA, BOBAN N Ot 157.0 06/26/2015 HERLINDA, BOBAN N Ot 196.9 06/26/2015 HERLINDA, BOBAN N Ot 285.9 06/26/2015 HERLINDA, BOBAN N Ot V58.11 06/26/2015 HERLINDA, BOBAN N Ot V58.69 07/03/2015 KALEIGH HILAH S STOCK TURNER Ot 157.0 07/03/2015 FARRIS, HILAH S STOCK TURNER Ot 196.9 07/03/2015 FARRIS HILAH S STOCK TURNER Ot 285.9 07/03/2015 FARRIS, HILAH S STOCK TURNER Ot V58.69 07/03/2015 FARRIS, HILAH S STOCK TURNER Ot 157.0 07/03/2015 FARRIS, HILAH S STOCK TURNER Ot 196.9 07/03/2015 FARRIS, HILAH S STOCK TURNER Ot 285.9 07/03/2015 FARRIS, HILAH S STOCK TURNER Ot V58.69 07/08/2015 MESSI LAZO, ROBERT Ot 157.0 07/08/2015 MESSI LAZO, GUZMANDiamondKEVAN Ot 196.9 07/08/2015 MESSI LAZO, ROBERT Ot 285.9 07/08/2015 MESSI LAZO, ROBERT Ot V58.69 07/16/2015 HERLINDA, BOBAN N Ot 157.0 07/16/2015 HERLINDA, BOBAN N Ot 196.9 07/16/2015 HERLINDA, BOBAN N Ot 285.9 07/16/2015 HERLINDA, BOBAN N Ot V58.11 07/16/2015 HERLINDA, BOBAN N Ot V58.69 07/16/2015 FARRIS, HILAH S STOCK TURNER Ot 157.0 07/16/2015 FARRIS, HILAH S STOCK TURNER Ot 196.9 07/16/2015 KALEIGH MORENITA S STOCK TURNER Ot 285.9 07/16/2015 FARRIS, MORENITA S STOCK TURNER Ot V58.69 07/25/2015 FARRIS, HILAH S STOCK TURNER Ot 157.0 07/25/2015 FARRIS, HILAH S STOCK TURNER Ot 196.9 07/25/2015 FARRIS GERAAH S STOCK TURNER Ot 285.9 07/25/2015 FARRIS GERAAH S STOCK TURNER Ot V58.69 08/06/2015 HERLINDAMARILU BRAUNAN N Ot 157.0 08/06/2015 HERLINDA, BOBAN N Ot 196.9 08/06/2015 HERLINDA, BOBAN N Ot 285.9 08/06/2015 HERLINDAXIN BRAUN N Ot V58.11 08/06/2015 HERLINDAMARILU BRAUNAN N Ot V58.69 08/06/2015 KALEIGH MORENITA S STOCK TURNER Ot 157.0 08/06/2015 FARRIS, MORENITA S STOCK TURNER Ot 196.9 08/06/2015 KALEIGH MORENITA S STOCK TURNER Ot 285.9 08/06/2015 FARRIS, MORENITA S STOCK TURNER Ot V58.69 08/14/2015 MARILU PATEAN N Ot 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 PANCREAS HEAD 08/14/2015 HERLINDAXIN BRAUN N Ot 196.9 MAL LEX LYMPH NODE NOS 08/14/2015 HERLINDAXIN BRAUN N Ot 285.9 ANEMIA NOS 08/14/2015 XIN PATE N Ot V58.11 ENCOUNTER FOR ANTINEOPLASTIC CHEMOTHERAP 08/14/2015 XIN PATE N Ot V58.69 OT MED,LT,CURRENT USE 08/14/2015 MORENITA FARRIS S STOCK TURNER Ot 157.0 08/14/2015 FARRISMORENITA S STOCK TURNER Ot 196.9 08/14/2015 FARRISGERAAH S STOCK TURNER Ot 285.9 08/14/2015 FARRIS HILAH S STOCK TURNER Ot V58.69 08/19/2015 MARILU PATEAN N Ot 157.0 08/19/2015 HERLINDA BOBAN N Ot 196.9 08/19/2015 HERLINDA BOBAN N Ot 285.9 08/19/2015 HERLINDAXIN BRAUN N Ot V58.11 08/19/2015 HERLINDAXIN BRAUN N Ot V58.69 08/21/2015 MORENITA FARRIS S STOCK TURNER Ot 157.9 09/02/2015 FARRISMORENITA Mckeon S STOCK TURNER Ot 157.9 09/10/2015 XIN PATE N Ot 157.0 09/10/2015 HERLINDAXIN BRAUN N Ot 196.9 09/10/2015 HERLINDAXIN BRAUN N Ot 285.9 09/10/2015 HERLINDAXIN BRAUN N Ot V58.11 09/10/2015 XIN PATE N Ot V58.69 09/11/2015 MORENITA FARRIS S STOCK TURNER Ot C25.0 09/11/2015 FARRISMORENITA S STOCK TURNER Ot G56.91 09/11/2015 FARRISMORENITA S STOCK TURNER Ot Z79.899 09/17/2015 MORENITA FARRIS S STOCK TURNER Ot C25.0 09/17/2015 FARRISMORENITA S STOCK TURNER Ot G56.91 09/17/2015 FARRISMORENITA S STOCK TURNER Ot Z79.899 10/01/2015 XIN PATE N Ot 157.0 10/01/2015 HERLINDAXIN BRAUN N Ot 196.9 10/01/2015 HERLINDAXIN BRAUN N Ot 285.9 10/01/2015 XIN PATE N Ot V58.11 10/01/2015 XIN PATE N Ot V58.69 10/02/2015 MORENITA FARRIS S STOCK TURNER Ot C25.0 10/02/2015 FARRISMORENITA S STOCK TURNER Ot Z79.899 10/15/2015 FARRIS, MORENITA S STOCK TURNER Ot C25.0 10/15/2015 FARRIS, MORENITA S STOCK TURNER Ot Z79.899 10/23/2015 FARRIS, HILAH S STOCK TURNER Ot C25.0 10/23/2015 FARRIS, HILAH S STOCK TURNER Ot Z79.899 10/31/2015 FARRIS, HILAH S STOCK TURNER Ot C25.0 10/31/2015 FARRIS, GERAAH S STOCK TURNER Ot Z79.899 11/02/2015 HERLINDAXIN BRAUN N Ot 157.0 11/02/2015 HERLINDAXIN BRAUN N Ot 196.9 11/02/2015 HERLINDAXIN BRAUN N Ot 285.9 11/02/2015 HERLINDAXIN BRAUN N Ot V58.11 11/02/2015 XIN PATE Ot V58.69 11/12/2015 XIN PATE Ot C25.0 11/12/2015 XIN PATE Ot C77.9 11/12/2015 XIN PATE Ot D64.9 11/12/2015 XIN PATE Ot Z51.11 11/12/2015 XIN PATE Ot Z79.899 11/18/2015 XIN PATE Ot C25.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 11/18/2015 XIN PATE Ot 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 11/18/2015 XIN PATE Ot D64.9 ANEMIA, UNSPECIFIED 11/18/2015 XIN PATE Ot Z51.11 ENCOUNTER FOR ANTINEOPLASTIC CHEMOTHERAP 11/18/2015 XIN PATE Ot Z79.899 OTHER HALFWAY (CURRENT) DRUG THERAPY 12/05/2015 MORENITA FARRIS STOCK TURNER Ot C25.0 12/05/2015 KALEIGH MORENITA Mckeon STOCK TURNER Ot C77.9 12/05/2015 GERA FARRISLATA Mike STOCK TURNER Ot D70.1 12/05/2015 MORENITA FARRIS STOCK TURNER Ot T45.1X5A 12/05/2015 MORENITA FARRIS STOCK TURNER Ot Z79.899 12/12/2015 MORENITA FARRIS STOCK TURNER Ot C25.0 12/12/2015 MORENITA FARRIS STOCK TURNER Ot C77.9 12/12/2015 GERA FARRISLATA Mike STOCK TURNER Ot D70.1 12/12/2015 KALEIGH MORENITA Mckeon STOCK TURNER Ot T45.1X5A 12/12/2015 KALEIGH MORENITA Mckeon STOCK TURNER Ot Z79.899 12/13/2015 ZAYRA ELIZONDO MD Ot 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, UNSPECIF 12/13/2015 ZAYRA ELIZONDO MD Ot J90 PLEURAL EFFUSION, 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 12/13/2015 ZAYRA ELIZONDO MD Ot J98.11 ATELECTASIS 12/13/2015 ZAYRA ELIZONDO MD Ot Z79.899 OTHER HALFWAY (CURRENT) DRUG THERAPY 12/15/2015 ZAYRA ELIZONDO MD Ot 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, UNSPECIF 12/15/2015 ZAYRA ELIZONDO MD Ot R20.0 ANESTHESIA OF SKIN 12/15/2015 ZAYRA ELIZONDO MD Ot R20.2 PARESTHESIA OF SKIN 12/15/2015 ZAYRA ELIZONDO MD Ot R51 HEADACHE 12/15/2015 ZAYRA ELIZONDO MD Ot Z79.899 OTHER HALFWAY (CURRENT) DRUG THERAPY 12/17/2015 MORENITA FARRIS S STOCK TURNER Ot C25.0 12/26/2015 MORENITA FARRIS S STOCK TURNER Ot C25.0 12/26/2015 MORENITA FARRIS S STOCK TURNER Ot C25.0 12/26/2015 MORENITA FARRIS S STOCK TURNER Ot C77.9 12/26/2015 MORENITA FARRIS S STOCK TURNER Ot I10 12/26/2015 MORENITA FARRIS S STOCK TURNER Ot Z79.899 01/02/2016 MORENITA FARRIS S STOCK TURNER Ot C25.0 01/02/2016 MORENITA FARRIS S STOCK TURNER Ot C77.9 01/02/2016 MORENITA FARRIS S STOCK TURNER Ot I10 01/02/2016 MORENITA FARRIS S STOCK TURNER Ot Z79.899 01/09/2016 XIN PATE Ot C25.0 01/09/2016 XIN PATE Ot C77.9 01/09/2016 XIN PATE Ot D64.9 01/09/2016 XIN PATE Ot Z51.11 01/09/2016 XIN PATE N Ot Z79.899 01/10/2016 YANETH LAZO, JENNIFER Hernandez Ot R31.9 01/16/2016 YANETH LAZO, JENNIFER Hernandez Ot R31.9 01/29/2016 MORENITA FARRIS S STOCK TURNER Ot C25.0 01/29/2016 MORENITA FARIRS S STOCK TURNER Ot C77.9 01/29/2016 MORENITA FARRIS S STOCK TURNER Ot I10 01/29/2016 MORENITA FARRIS S STOCK TURNER Ot R74.8 01/29/2016 MORENITA FARRIS S STOCK TURNER Ot Z79.899 01/29/2016 MORENITA FARRIS S STOCK TURNER Ot C25.0 02/03/2016 GERA FARRISAH S STOCK TURNER Ot C25.0 02/06/2016 BAIMA, ANCELMO L STOCK TURNER Ot I10 02/06/2016 BAIMA, ANCELMO L STOCK TURNER Ot I25.10 02/06/2016 BAIMA, ANCELMO L STOCK TURNER Ot I65.23 02/06/2016 BAIMA, ANCELMO L STOCK TURNER Ot I70.213 02/06/2016 BAIMA, ANCELMO L STOCK TURNER Ot R00.2 02/11/2016 HERLINDA, XIN N Ot C25.0 02/11/2016 HERLINDAXIN N Ot C77.9 02/11/2016 HERLINDAXIN BRAUN N Ot D64.9 02/11/2016 XIN PATE N Ot Z79.899 02/11/2016 BAIMA, ANCELMO L STOCK TURNER Ot I10 02/11/2016 BAIMA, ANCELMO L STOCK TURNER Ot I25.10 02/11/2016 BAIMA, ANCELMO L STOCK TURNER Ot I65.23 02/11/2016 BAIMA, ANCELMO L STOCK TURNER Ot I70.213 02/11/2016 BAIMA, ANCELMO L STOCK TURNER Ot R00.2 02/12/2016 BAIMA, ANCELMO L STOCK TURNER Ot I10 02/12/2016 BAIMA, ANCELMO L STOCK TURNER Ot I25.10 02/12/2016 BAIMA, ANCELMO L STOCK TURNER Ot I65.23 02/12/2016 BAIMA, ANCELMO L STOCK TURNER Ot I70.213 02/12/2016 BAIMA, ANCELMO L STOCK TURNER Ot R00.2 02/17/2016 XIN PATE Ot C25.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 02/17/2016 XIN PATE Ot 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10 02/19/2016 ANCELMO MARION STOCK TURNER Ot I65.23 02/19/2016 ANCELMO MARION STOCK TURNER Ot I70.213 02/19/2016 ANCELMO MARION STOCK TURNER Ot R00.2 02/19/2016 XIN PATE N Ot C25.0 02/19/2016 XIN PATE N Ot C77.9 02/19/2016 XIN PATE N Ot D64.9 02/19/2016 XIN PATE N Ot Z79.899 02/20/2016 FARRISMORENITA Mckeon S STOCK TURNER Ot C25.0 02/26/2016 KALEIGHMORENITA S STOCK TURNER Ot C25.0 02/26/2016 KALEIGHMORENITA S STOCK TURNER Ot C77.9 02/26/2016 FARRISMORENITA Mckeon S STOCK TURNER Ot I10 02/26/2016 FARRISMORENITA S STOCK TURNER Ot R74.8 02/26/2016 KALEIGHMORENITA S STOCK TURNER Ot Z79.899 02/26/2016 FARRISMORENITA S STOCK TURNER Ot C25.0 02/26/2016 FARRISMORENITA S STOCK TURNER Ot C77.9 02/26/2016 FARRISMORENITA S STOCK TURNER Ot I10 02/26/2016 KALEIGH MORENITA S STOCK TURNER Ot R74.8 02/26/2016 KALEIGH MORENITA S STOCK TURNER Ot Z79.899 02/26/2016 KALEIGHMORENITA S STOCK TURNER Ot C25.0 03/04/2016 KALEIGH MORENITA S STOCK TURNER Ot C25.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 03/04/2016 KALEIGH MORENITA S STOCK TURNER Ot 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 03/04/2016 FARRISMORENITA Mckeon STOCK TURNER Ot I10 ESSENTIAL (PRIMARY) HYPERTENSION 03/04/2016 FARRISMORENITA MckeonP Ot R74.8 ABNORMAL LEVELS OF OTHER SERUM ENZYMES 03/04/2016 MORENITA FARRIS STOCK TURNER Ot Z79.899 OTHER HALFWAY (CURRENT) DRUG THERAPY 04/02/2016 FARRISMORENITA Mckeon STOCK TURNER Ot C25.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 04/02/2016 FARRISMORENITA Mckeon STOCK TURNER Ot 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 04/02/2016 FARRISMORENITA Mckeon STOCK TURNER Ot D64.9 ANEMIA, UNSPECIFIED 04/02/2016 FARRISMORENITA Mckeon STOCK TURNER Ot I10 ESSENTIAL (PRIMARY) HYPERTENSION 04/02/2016 FARRISMORENITA MckeonP Ot Z79.899 OTHER FORM SETTER METAL ROAD FORMS (CURRENT) DRUG THERAPY 04/06/2016 XIN PATE N Ot C25.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 04/06/2016 XIN PATE N Ot 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 04/06/2016 XIN PATE N Ot D64.9 ANEMIA, UNSPECIFIED 04/06/2016 HERLINDAXIN BRAUN N Ot Z51.11 ENCOUNTER FOR ANTINEOPLASTIC CHEMOTHERAP 04/06/2016 HERLINDAXIN BRAUN N Ot Z79.899 OTHER FORM SETTER METAL ROAD FORMS (CURRENT) DRUG THERAPY 04/15/2016 XIN PATE N Ot C25.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 04/15/2016 XIN PATE N Ot 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 04/15/2016 XIN PATE N Ot D64.9 ANEMIA, UNSPECIFIED 04/15/2016 HERLINDAXIN BRAUN N Ot Z51.11 ENCOUNTER FOR ANTINEOPLASTIC CHEMOTHERAP 04/15/2016 XIN PATE N Ot Z79.899 OTHER FORM SETTER METAL ROAD FORMS (CURRENT) DRUG THERAPY 04/23/2016 FARRISMORENITA Mckeon STOCK TURNER Ot C25.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 04/23/2016 KALEIGHMORENITA STOCK TURNER Ot 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 04/23/2016 KALEIGH MORENITA Mckeon STOCK TURNER Ot D64.9 ANEMIA, UNSPECIFIED 04/23/2016 MORENITA FARRIS STOCK TURNER Ot I10 ESSENTIAL (PRIMARY) HYPERTENSION 04/23/2016 MORENITA FARRIS STOCK TURNER Ot Z79.899 OTHER HALFWAY (CURRENT) DRUG THERAPY 04/23/2016 MORENITA FARRIS STOCK TURNER Ot C25.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 04/24/2016 MORENITA FARRIS STOCK TURNER Ot C25.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 04/24/2016 FARRISMORENITA Mckeon STOCK TURNER Ot 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 04/24/2016 MORENITA FARRIS STOCK TURNER Ot D64.9 ANEMIA, UNSPECIFIED 04/24/2016 MORENITA FARRIS STOCK TURNER Ot I10 ESSENTIAL (PRIMARY) HYPERTENSION 04/24/2016 FARRISMORENITA Mckeon STOCK TURNER Ot Z79.899 OTHER HALFWAY (CURRENT) DRUG THERAPY 05/12/2016 MORENITA FARRIS STOCK TURNER Ot C25.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 05/13/2016 MORENITA FARRIS STOCK TURNER Ot C25.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 05/13/2016 MORENITA FARRIS STOCK TURNER Ot 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 05/13/2016 MORENITA FARRIS STOCK TURNER Ot D64.9 ANEMIA, UNSPECIFIED 05/13/2016 MORENITA FARRIS STOCK TURNER Ot I10 ESSENTIAL (PRIMARY) HYPERTENSION 05/13/2016 MORENITA FARRIS STOCK TURNER Ot Z79.899 OTHER FORM SETTER METAL ROAD FORMS (CURRENT) DRUG THERAPY 05/18/2016 XIN PATE N Ot C25.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 05/18/2016 XIN PATE Ot 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 05/18/2016 XIN PATE N Ot D64.9 ANEMIA, UNSPECIFIED 05/18/2016 XIN PATE N Ot Z51.11 ENCOUNTER FOR ANTINEOPLASTIC CHEMOTHERAP 05/18/2016 XIN PATE N Ot Z79.899 OTHER FORM SETTER METAL ROAD FORMS (CURRENT) DRUG THERAPY 05/25/2016 XIN PATE N Ot C25.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 05/25/2016 XIN PATE N Ot 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 05/25/2016 XIN PATE N Ot D64.9 ANEMIA, UNSPECIFIED 05/25/2016 HERLINDAXIN BRAUN N Ot Z51.11 ENCOUNTER FOR ANTINEOPLASTIC CHEMOTHERAP 05/25/2016 HERLINDAXIN N Ot Z79.899 OTHER HALFWAY (CURRENT) DRUG THERAPY 05/25/2016 MORENITA FARRISP Ot C25.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 05/30/2016 VERNON MELISSAEN L Ot 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, UNSPECIF 05/30/2016 VERNON MELISSAEN L Ot E80.6 OTHER DISORDERS OF BILIRUBIN METABOLISM 05/30/2016 VERNON MELISSAEN L Ot K83.1 OBSTRUCTION OF BILE DUCT 05/30/2016 VERNON MELISSAEN L Ot R10.31 RIGHT LOWER QUADRANT PAIN 06/01/2016 DINAH MELISSA L Ot 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, UNSPECIF 06/01/2016 DINAH MELISSA L Ot E80.6 OTHER DISORDERS OF BILIRUBIN METABOLISM 06/01/2016 DINAH MELISSA Ot K83.1 OBSTRUCTION OF BILE DUCT 06/01/2016 VERNON MELISSAEN L Ot R10.31 RIGHT LOWER QUADRANT PAIN 06/26/2016 HERLINDAXIN BRAUN N Ot C25.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 06/26/2016 HERLINDAXIN BRAUN N Ot 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 06/26/2016 HERLINDAXIN N Ot D64.9 ANEMIA, UNSPECIFIED 06/26/2016 HERLINDAXIN BRAUN N Ot Z51.11 ENCOUNTER FOR ANTINEOPLASTIC CHEMOTHERAP 06/26/2016 XIN PATE N Ot Z79.899 OTHER FORM SETTER METAL ROAD FORMS (CURRENT) DRUG THERAPY 07/16/2016 Ot 998.59 07/16/2016 HERLINDAXIN N Ot C25.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 07/16/2016 HERLINDA BOBANGELICA N Ot 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 07/16/2016 HERLINDA BOBAN N Ot D64.9 ANEMIA, UNSPECIFIED 07/16/2016 HERLINDA BOBAN N Ot Z79.899 OTHER FORM SETTER METAL ROAD FORMS (CURRENT) DRUG THERAPY 07/23/2016 HERLINDA BOBAN N Ot C25.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 07/23/2016 HERLINDA BOBAN N Ot 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 07/23/2016 XIN PATE Ot D64.9 ANEMIA, UNSPECIFIED 07/23/2016 XIN PATE N Ot Z79.899 OTHER FORM SETTER METAL ROAD FORMS (CURRENT) DRUG THERAPY 08/21/2016 XIN PATE Ot C25.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 08/21/2016 XIN PATE N Ot 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 08/21/2016 XIN PATE N Ot D64.9 ANEMIA, UNSPECIFIED 08/21/2016 XIN PATE N Ot Z79.899 OTHER FORM SETTER METAL ROAD FORMS (CURRENT) DRUG THERAPY 08/28/2016 XIN PATE Ot C25.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 08/28/2016 XIN PATE N Ot 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 08/28/2016 XIN PATE Ot D64.9 ANEMIA, UNSPECIFIED 08/28/2016 XIN PATE Ot Z23 ENCOUNTER FOR IMMUNIZATION 08/28/2016 XIN PATE Ot Z79.899 OTHER FORM SETTER METAL ROAD FORMS (CURRENT) DRUG THERAPY 09/24/2016 Ot 401.9 HYPERTENSION NOS 09/24/2016 Ot 785.1 PALPITATIONS 09/24/2016 Ot V12.59 HX-CIRCULATORY SYST DIS,NEC 09/24/2016 Ot V15.82 HISTORY OF TOBACCO USE 09/24/2016 YANETH LAZO, JENNIFER Hernandez Ot V76.12 OTH SCREEN MAMMO-MALIGN NEOPLASM OF [place] 09/24/2016 YANETH LAZO, JENNIFER Hernandez Ot 272.4 HYPERLIPIDEMIA NEC/NOS 09/24/2016 JENNIFER WOLFE MD Ot 414.01 CORONARY ATHEROSCLEROSIS OF [place] CORON 09/24/2016 JENNIFER WOLFE MD Ot 786.50 CHEST PAIN NOS 09/24/2016 JENNIFER WOLFE MD Ot 789.00 ABDOMINAL PAIN, UNSPECIFIED SITE 09/24/2016 JENNIFER WOLFE MD Ot 793.11 SOLITARY PULMONARY NODULE 09/24/2016 JENNIFER WOLFE MD Ot 577.9 PANCREATIC DISEASE NOS 09/24/2016 JENNIFER WOLFE MD Ot 577.9 PANCREATIC DISEASE NOS 09/24/2016 JENNIFER WOLFE MD Ot 577.9 PANCREATIC DISEASE NOS 09/24/2016 KENNETH LAZO, INGRID S Ot 157.9 MALIG LEX PANCREAS NOS 09/24/2016 KENNETH LAZO, INGRID S Ot V72.84 EXAM PRE-OPERATIVE NOS 09/24/2016 MORENITA FARRIS S STOCK TURNER Ot 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 PANCREAS HEAD 09/24/2016 FARRISMORENITA Mckeon S STOCK TURNER Ot 196.9 MAL LEX LYMPH NODE NOS 09/24/2016 MORENITA FARRIS S STOCK TURNER Ot V58.69 OTH MED,LT,CURRENT USE 09/24/2016 Ot 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 PANCREAS HEAD 09/24/2016 Ot 196.9 MAL LEX LYMPH NODE NOS 09/24/2016 Ot 285.9 ANEMIA NOS 09/24/2016 Ot 288.60 LEUKOCYTOSIS, UNSPECIFIED 09/24/2016 Ot 780.60 FEVER, UNSPECIFIED 09/24/2016 Ot 782.4 JAUNDICE NOS 09/24/2016 Ot V58.69 OTH MED,LT,CURRENT USE 09/24/2016 Ot 288.60 LEUKOCYTOSIS, UNSPECIFIED 09/24/2016 Ot 780.60 FEVER, UNSPECIFIED 09/24/2016 MORENITA FARRIS S STOCK TURNER Ot 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 PANCREAS HEAD 09/24/2016 MORENITA FARRIS S STOCK TURNER Ot 196.9 MAL LEX LYMPH NODE NOS 09/24/2016 FARRISMORENITA Mckeon S STOCK TURNER Ot 285.9 ANEMIA NOS 09/24/2016 MORENITA FARRIS S STOCK TURNER Ot V58.69 OTH MED,LT,CURRENT USE 09/24/2016 MORENITA FARRIS S STOCK TURNER Ot 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 PANCREAS HEAD 09/24/2016 FARRISMORENITA Mckeon S STOCK TURNER Ot 196.9 MAL LEX LYMPH NODE NOS 09/24/2016 MORENITA FARRIS S STOCK TURNER Ot 285.9 ANEMIA NOS 09/24/2016 MORENITA FARRIS S STOCK TURNER Ot V58.69 OTH MED,LT,CURRENT USE 09/24/2016 MORENITA FARRIS S STOCK TURNER Ot 157.9 MALIG LEX PANCREAS NOS 09/24/2016 MESSI LAZO, ROBERT Ot 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 PANCREAS HEAD 09/24/2016 MESSI LAZO, ROBERT Ot 196.9 MAL LEX LYMPH NODE NOS 09/24/2016 MESSI LAZO, ROBERT Ot 285.9 ANEMIA NOS 09/24/2016 MESSI LAZO, ROBERT Ot V58.69 OTH MED,LT,CURRENT USE 09/24/2016 MORENITA FARRIS STOCK TURNER Ot 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 PANCREAS HEAD 09/24/2016 MORENITA FARRIS STOCK TURNER Ot 196.9 MAL LEX LYMPH NODE NOS 09/24/2016 MORENITA FARRIS STOCK TURNER Ot 285.9 ANEMIA NOS 09/24/2016 MORENITA FARRIS STOCK TURNER Ot V58.69 OTH MED,LT,CURRENT USE 09/24/2016 MORENITA FARRIS STOCK TURNER Ot 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 PANCREAS HEAD 09/24/2016 MORENITA FARRIS STOCK TURNER Ot 196.9 MAL LEX LYMPH NODE NOS 09/24/2016 MORENITA FARRIS STOCK TURNER Ot 285.9 ANEMIA NOS 09/24/2016 MORENITA FARRISP Ot V58.69 OTH MED,LT,CURRENT USE 09/24/2016 MORENITA FARRIS STOCK TURNER Ot 157.9 MALIG LEX PANCREAS NOS 09/24/2016 MORENITA FARRIS STOCK TURNER Ot C25.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 09/24/2016 MORENITA FARRIS STOCK TURNER Ot 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 09/24/2016 MORENITA FARRIS STOCK TURNER Ot Z79.899 OTHER HALFWAY (CURRENT) DRUG THERAPY 09/24/2016 MORENITA FARRIS STOCK TURNER Ot C25.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 09/24/2016 MORENITA FARRIS STOCK TURNER Ot Z79.899 OTHER FORM SETTER METAL ROAD FORMS (CURRENT) DRUG THERAPY 09/24/2016 MORENITA FARRIS STOCK TURNER Ot C25.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 09/24/2016 MORENITA FARRIS STOCK TURNER Ot Z79.899 OTHER HALFWAY (CURRENT) DRUG THERAPY 09/24/2016 MORENITA FARRIS STOCK TURNER Ot C25.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 09/24/2016 MORENITA FARRISP Ot 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 09/24/2016 MORENITA FARRISP Ot 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 09/24/2016 MORENITA FARRISP Ot T45.1X5A ADVERSE EFFECT OF ANTINEOPLASTIC AND IMM 09/24/2016 MORENITA FARRIS STOCK TURNER Ot Z79.899 OTHER HALFWAY (CURRENT) DRUG THERAPY 09/24/2016 MORENITA FARRIS STOCK TURNER Ot C25.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 09/24/2016 MORENITA FARRIS STOCK TURNER Ot C25.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 09/24/2016 MORENITA FARRIS STOCK TURNER Ot 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 09/24/2016 MORENITA FARRIS STOCK TURNER Ot I10 ESSENTIAL (PRIMARY) HYPERTENSION 09/24/2016 MORENITA FARRIS STOCK TURNER Ot Z79.899 OTHER FORM SETTER METAL ROAD FORMS (CURRENT) DRUG THERAPY 09/24/2016 YANETH LAZO, JENNIFER Hernandez Ot R31.9 HEMATURIA, UNSPECIFIED 09/24/2016 LOREMARYCARMEN ANCELMO L STOCK TURNER Ot I10 ESSENTIAL (PRIMARY) HYPERTENSION 09/24/2016 LOREREENA CONROYHER L STOCK TURNER Ot I25.10 ATHSCL HEART DISEASE OF [place] CORONARY 09/24/2016 LOREREENA CONROYHER L STOCK TURNER Ot 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 09/24/2016 LOREMARYCARMEN ANCELMO L STOCK TURNER Ot 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 [facility] 09/24/2016 LOREANCELMO CONROY L STOCK TURNER Ot R00.2 PALPITATIONS 09/24/2016 LOREMA ANCELMO L STOCK TURNER Ot I10 ESSENTIAL (PRIMARY) HYPERTENSION 09/24/2016 BAIREENA CONROYHER L STOCK TURNER Ot I25.10 ATHSCL HEART DISEASE OF [place] CORONARY 09/24/2016 BAIMAREENAANCELMO L STOCK TURNER Ot 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 09/24/2016 BAIMAREENAANCELMO L STOCK TURNER Ot 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 [facility] 09/24/2016 LOREMAREENAANCELMO L STOCK TURNER Ot R00.2 PALPITATIONS 09/24/2016 MORENITA FARRIS STOCK TURNER Ot C25.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 09/24/2016 MORENITA FARRIS STOCK TURNER Ot 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 09/24/2016 MORENITA FARRIS STOCK TURNER Ot I10 ESSENTIAL (PRIMARY) HYPERTENSION 09/24/2016 MORENITA FARRIS STOCK TURNER Ot R74.8 ABNORMAL LEVELS OF OTHER SERUM ENZYMES 09/24/2016 MORENITA FARRIS STOCK TURNER Ot Z79.899 OTHER HALFWAY (CURRENT) DRUG THERAPY 09/24/2016 MORENITA FARRIS STOCK TURNER Ot C25.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 09/24/2016 MORENITA FARRIS STOCK TURNER Ot C25.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 09/24/2016 MORENITA FARRIS STOCK TURNER Ot 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 09/24/2016 MORENITA FARRIS STOCK TURNER Ot I10 ESSENTIAL (PRIMARY) HYPERTENSION 09/24/2016 MORENITA FARRISP Ot R74.8 ABNORMAL LEVELS OF OTHER SERUM ENZYMES 09/24/2016 MORENITA FARRISP Ot Z79.899 OTHER HALFWAY (CURRENT) DRUG THERAPY 09/24/2016 MORENITA FARRISP Ot C25.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 09/24/2016 MORENITA FARRISP Ot 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 09/24/2016 MORENITA FARRISP Ot D64.9 ANEMIA, UNSPECIFIED 09/24/2016 MORENITA FARRISP Ot I10 ESSENTIAL (PRIMARY) HYPERTENSION 09/24/2016 MORENITA FARRISP Ot Z79.899 OTHER FORM SETTER METAL ROAD FORMS (CURRENT) DRUG THERAPY 09/24/2016 MORENITA FARRISP Ot C25.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 09/24/2016 MARILU PATEANGELICA Reeder Ot C25.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 09/24/2016 XIN PATE Ot 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 09/24/2016 XIN PATE Ot D64.9 ANEMIA, UNSPECIFIED 09/24/2016 XIN PATE Ot Z23 ENCOUNTER FOR IMMUNIZATION 09/24/2016 XIN PATE Ot Z79.899 OTHER HALFWAY (CURRENT) DRUG THERAPY 09/24/2016 FARRISMORENITA Mckeon STOCK TURNER Ot C25.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 09/29/2016 HERLINDA MARILUANGELICA Reeder Ot C25.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 09/29/2016 XIN PATE Ot 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 09/29/2016 XIN PATE Ot D64.9 ANEMIA, UNSPECIFIED 09/29/2016 XIN PATE Ot Z23 ENCOUNTER FOR IMMUNIZATION 09/29/2016 XIN PATE Ot Z79.899 OTHER FORM SETTER METAL ROAD FORMS (CURRENT) DRUG THERAPY 09/29/2016 Ot 401.9 HYPERTENSION NOS 09/29/2016 Ot 785.1 PALPITATIONS 09/29/2016 Ot V12.59 HX-CIRCULATORY SYST DIS,NEC 09/29/2016 Ot V15.82 HISTORY OF TOBACCO USE 09/29/2016 YANETH LAZO, JNENIFER Hernandez Ot V76.12 OTH SCREEN MAMMO-MALIGN NEOPLASM OF [place] 09/29/2016 YANETH LAZO, JENNIFER Hernandez Ot 272.4 HYPERLIPIDEMIA NEC/NOS 09/29/2016 YANETH LAZO, JENNIFER Hernandez Ot 414.01 CORONARY ATHEROSCLEROSIS OF [place] CORON 09/29/2016 YANETH LAZO, JENNIFER Hernandez Ot 786.50 CHEST PAIN NOS 09/29/2016 YANETH LAZO, JENNIFER Hernandez Ot 789.00 ABDOMINAL PAIN, UNSPECIFIED SITE 09/29/2016 YANETH LAZO, JENNIFER Hernandez Ot 793.11 SOLITARY PULMONARY NODULE 09/29/2016 YANETH LAZO, JENNIFER Hernandez Ot 577.9 PANCREATIC DISEASE NOS 09/29/2016 YANETH LAZO, JENNIFER Hernandez Ot 577.9 PANCREATIC DISEASE NOS 09/29/2016 YANETH LAZO, JENNIFER Hernandez Ot 577.9 PANCREATIC DISEASE NOS 09/29/2016 KENNETH LAZO, INGRID Mckeon Ot 157.9 MALIG LEX PANCREAS NOS 09/29/2016 KENNETH LAZO, INGRID Mckeon Ot V72.84 EXAM PRE-OPERATIVE NOS 09/29/2016 MORENITA FARRIS STOCK TURNER Ot 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 PANCREAS HEAD 09/29/2016 MORENITA FARRIS STOCK TURNER Ot 196.9 MAL LEX LYMPH NODE NOS 09/29/2016 MORENITA FARRIS STOCK TURNER Ot V58.69 OTH MED,LT,CURRENT USE 09/29/2016 Ot 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 PANCREAS HEAD 09/29/2016 Ot 196.9 MAL LEX LYMPH NODE NOS 09/29/2016 Ot 285.9 ANEMIA NOS 09/29/2016 Ot 288.60 LEUKOCYTOSIS, UNSPECIFIED 09/29/2016 Ot 780.60 FEVER, UNSPECIFIED 09/29/2016 Ot 782.4 JAUNDICE NOS 09/29/2016 Ot V58.69 OTH MED,LT,CURRENT USE 09/29/2016 Ot 288.60 LEUKOCYTOSIS, UNSPECIFIED 09/29/2016 Ot 780.60 FEVER, UNSPECIFIED 09/29/2016 FARRIS, HILAH S STOCK TURNER Ot 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 PANCREAS HEAD 09/29/2016 MORENITA FARRIS S STOCK TURNER Ot 196.9 MAL LEX LYMPH NODE NOS 09/29/2016 MORENITA FARRIS S STOCK TURNER Ot 285.9 ANEMIA NOS 09/29/2016 MORENITA FARRIS S STOCK TURNER Ot V58.69 OTH MED,LT,CURRENT USE 09/29/2016 MORENITA FARRIS STOCK TURNER Ot 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 PANCREAS HEAD 09/29/2016 MORENITA FARRIS S STOCK TURNER Ot 196.9 MAL LEX LYMPH NODE NOS 09/29/2016 MORENITA FARRIS S STOCK TURNER Ot 285.9 ANEMIA NOS 09/29/2016 MORENITA FARRIS S STOCK TURNER Ot V58.69 OTH MED,LT,CURRENT USE 09/29/2016 MORENITA FARRIS STOCK TURNER Ot 157.9 MALIG LEX PANCREAS NOS 09/29/2016 MESSI LAZO, ROBERT Ot 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 PANCREAS HEAD 09/29/2016 MESSI LAZO, ROBERT Ot 196.9 MAL LEX LYMPH NODE NOS 09/29/2016 MESSI LAZO, THOMAS-KEVAN Ot 285.9 ANEMIA NOS 09/29/2016 MESSI LAZO, THOMAS-KEVAN Ot V58.69 OTH MED,LT,CURRENT USE 09/29/2016 MORENITA FARRIS STOCK TURNER Ot 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 PANCREAS HEAD 09/29/2016 MORENITA FARRIS S STOCK TURNER Ot 196.9 MAL LEX LYMPH NODE NOS 09/29/2016 MORENITA FARRIS S STOCK TURNER Ot 285.9 ANEMIA NOS 09/29/2016 MORENITA FARRIS STOCK TURNER Ot V58.69 OTH MED,LT,CURRENT USE 09/29/2016 MORENITA FARRIS S STOCK TURNER Ot 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 PANCREAS HEAD 09/29/2016 MORENITA FARRIS S STOCK TURNER Ot 196.9 MAL LEX LYMPH NODE NOS 09/29/2016 MORENITA FARRIS S STOCK TURNER Ot 285.9 ANEMIA NOS 09/29/2016 MORENITA FARRIS S STOCK TURNER Ot V58.69 OTH MED,LT,CURRENT USE 09/29/2016 MORENITA FARRIS STOCK TURNER Ot 157.9 MALIG LEX PANCREAS NOS 09/29/2016 MORENITA FARRIS STOCK TURNER Ot C25.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 09/29/2016 MORENITA FARRIS STOCK TURNER Ot 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 09/29/2016 FARRISMORENITA Mckeon STOCK TURNER Ot Z79.899 OTHER HALFWAY (CURRENT) DRUG THERAPY 09/29/2016 FARRISMORENITA Mckeon STOCK TURNER Ot C25.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 09/29/2016 FARRISMORENITA Mckeon STOCK TURNER Ot Z79.899 OTHER HALFWAY (CURRENT) DRUG THERAPY 09/29/2016 FARRISMORENITA Mckeon STOCK TURNER Ot C25.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 09/29/2016 FARRISMORENITA Mckeon STOCK TURNER Ot Z79.899 OTHER FORM SETTER METAL ROAD FORMS (CURRENT) DRUG THERAPY 09/29/2016 FARRISMORENITA Mckeon STOCK TURNER Ot C25.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 09/29/2016 FARRISMORENITA Mckeon STOCK TURNER Ot 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 09/29/2016 KALEIGH MORENITA Mckeon STOCK TURNER Ot 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 09/29/2016 KALEIGH MORENITA Mckeon STOCK TURNER Ot T45.1X5A ADVERSE EFFECT OF ANTINEOPLASTIC AND IMM 09/29/2016 FARRISMORENITA Mckeon STOCK TURNER Ot Z79.899 OTHER FORM SETTER METAL ROAD FORMS (CURRENT) DRUG THERAPY 09/29/2016 FARRISMORENITA Mckeon STOCK TURNER Ot C25.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 09/29/2016 FARRISMORENITA Mckeon STOCK TURNER Ot C25.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 09/29/2016 KALEIGH MORENITA Mckeon STOCK TURNER Ot 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 09/29/2016 MORENITA FARRIS Mike STOCK TURNER Ot I10 ESSENTIAL (PRIMARY) HYPERTENSION 09/29/2016 GERA FARRISLATA Mckeon STOCK TURNER Ot Z79.899 OTHER FORM SETTER METAL ROAD FORMS (CURRENT) DRUG THERAPY 09/29/2016 YANETH LAZO, JENNIFER Hernandez Ot R31.9 HEMATURIA, UNSPECIFIED 09/29/2016 ANCELMO MARION STOCK TURNER Ot I10 ESSENTIAL (PRIMARY) HYPERTENSION 09/29/2016 ANCELMO MARION STOCK TURNER Ot I25.10 ATHSCL HEART DISEASE OF [place] CORONARY 09/29/2016 ANCELMO MARION STOCK TURNER Ot 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 09/29/2016 ANCELMO MARION STOCK TURNER Ot 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 EXTRM W INTRMT 09/29/2016 ANCELMO MARION STOCK TURNER Ot R00.2 PALPITATIONS 09/29/2016 ANCELMO MARION STOCK TURNER Ot I10 ESSENTIAL (PRIMARY) HYPERTENSION 09/29/2016 ANCELMO MARION STOCK TURNER Ot I25.10 ATHSCL HEART DISEASE OF [place] CORONARY 09/29/2016 ANCELMO MARION STOCK TURNER Ot 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 09/29/2016 ANCELMO MARION STOCK TURNER Ot 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 EXTRM W INTRMT 09/29/2016 ANCELMO MARION STOCK TURNER Ot R00.2 PALPITATIONS 09/29/2016 MORENITA FARRIS STOCK TURNER Ot C25.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 09/29/2016 MORENITA FARRIS STOCK TURNER Ot 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 09/29/2016 MORENITA FARRIS STOCK TURNER Ot I10 ESSENTIAL (PRIMARY) HYPERTENSION 09/29/2016 MORENITA FARRIS STOCK TURNER Ot R74.8 ABNORMAL LEVELS OF OTHER SERUM ENZYMES 09/29/2016 MORENITA FARRIS STOCK TURNER Ot Z79.899 OTHER FORM SETTER METAL ROAD FORMS (CURRENT) DRUG THERAPY 09/29/2016 MORENITA FARRIS STOCK TURNER Ot C25.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 09/29/2016 MORENITA FARRIS STOCK TURNER Ot C25.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 09/29/2016 MORENITA FARRISP Ot 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 09/29/2016 MORENITA FARRIS STOCK TURNER Ot I10 ESSENTIAL (PRIMARY) HYPERTENSION 09/29/2016 MORENITA FARRIS STOCK TURNER Ot R74.8 ABNORMAL LEVELS OF OTHER SERUM ENZYMES 09/29/2016 MORENITA FARRIS STOCK TURNER Ot Z79.899 OTHER HALFWAY (CURRENT) DRUG THERAPY 09/29/2016 MORENITA FARRIS STOCK TURNER Ot C25.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 09/29/2016 MORENITA FARRIS STOCK TURNER Ot 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 09/29/2016 MORENITA FARRIS STOCK TURNER Ot D64.9 ANEMIA, UNSPECIFIED 09/29/2016 FARRISMORENITA Mckeon STOCK TURNER Ot I10 ESSENTIAL (PRIMARY) HYPERTENSION 09/29/2016 MORENITA FARRIS STOCK TURNER Ot Z79.899 OTHER FORM SETTER METAL ROAD FORMS (CURRENT) DRUG THERAPY 09/29/2016 FARRISMORENITA Mckeon STOCK TURNER Ot C25.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 09/29/2016 HERLINDAXIN BRAUN N Ot C25.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 09/29/2016 HERLINDAXIN BRAUN N Ot 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 09/29/2016 HERLINDAXIN N Ot D64.9 ANEMIA, UNSPECIFIED 09/29/2016 HERLINDA BOBAN N Ot Z23 ENCOUNTER FOR IMMUNIZATION 09/29/2016 HERLINDAXIN BRAUN N Ot Z79.899 OTHER FORM SETTER METAL ROAD FORMS (CURRENT) DRUG THERAPY 09/29/2016 FARRISMORENITA Mckeon STOCK TURNER Ot C25.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 10/14/2016 HERLINDAXIN N Ot C25.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 10/14/2016 HERLINDAXIN BRAUN N Ot 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 10/14/2016 HERLINDAXIN N Ot D64.9 ANEMIA, UNSPECIFIED 10/14/2016 HERLINDAMARILUAN N Ot Z23 ENCOUNTER FOR IMMUNIZATION 10/14/2016 XIN PATE N Ot Z79.899 OTHER FORM SETTER METAL ROAD FORMS (CURRENT) DRUG THERAPY 10/15/2016 GERA FARRISLATA Mckeon STOCK TURNER Ot C25.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 10/22/2016 HERLINDAXIN N Ot C25.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 10/22/2016 HERLINDAXIN N Ot 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 10/22/2016 HERLINDAXIN N Ot D64.9 ANEMIA, UNSPECIFIED 10/22/2016 HERLINDA BOBAN N Ot Z23 ENCOUNTER FOR IMMUNIZATION 10/22/2016 HERLINDAMARILUAN N Ot Z79.899 OTHER FORM SETTER METAL ROAD FORMS (CURRENT) DRUG THERAPY 10/22/2016 GERA FARRISLATA Mckeon STOCK TURNER Ot C25.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 11/25/2016 HERLINDA MARILUAN N Ot C25.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 11/25/2016 HERLINDA MARILUAN N Ot 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 11/25/2016 XIN PATE Ot D64.9 ANEMIA, UNSPECIFIED 11/25/2016 XIN PATE Ot Z23 ENCOUNTER FOR IMMUNIZATION 11/25/2016 XIN PATE Ot Z45.2 ENCOUNTER FOR ADJUSTMENT AND MANAGEMENT 11/25/2016 XIN PATE Ot Z79.899 OTHER HALFWAY (CURRENT) DRUG THERAPY 11/26/2016 XIN PATE Ot C25.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 11/26/2016 XIN PATE Ot 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 11/26/2016 XIN PATE Ot D64.9 ANEMIA, UNSPECIFIED 11/26/2016 XIN PATE Ot Z23 ENCOUNTER FOR IMMUNIZATION 11/26/2016 XIN PATE Ot Z45.2 ENCOUNTER FOR ADJUSTMENT AND MANAGEMENT 11/26/2016 XIN PATE Ot Z79.899 OTHER FORM SETTER METAL ROAD FORMS (CURRENT) DRUG THERAPY 12/17/2016 Ot 401.9 HYPERTENSION NOS 12/17/2016 Ot 785.1 PALPITATIONS 12/17/2016 Ot V12.59 HX-CIRCULATORY SYST DIS,NEC 12/17/2016 Ot V15.82 HISTORY OF TOBACCO USE 12/17/2016 YANETH LAZO, JENNIFER Hernandez Ot V76.12 OTH SCREEN MAMMO-MALIGN NEOPLASM OF [place] 12/17/2016 YANETH LAOZ, JENNIFER Hernandez Ot 272.4 HYPERLIPIDEMIA NEC/NOS 12/17/2016 YANETH LAZO, JENNIFER Hernandez Ot 414.01 CORONARY ATHEROSCLEROSIS OF [place] CORON 12/17/2016 YANETH LAZO, JENNIFER Hernandez Ot 786.50 CHEST PAIN NOS 12/17/2016 YANETH LAZO, JENNIFER Hernandez Ot 789.00 ABDOMINAL PAIN, UNSPECIFIED SITE 12/17/2016 JENNIFER WOLFE MD Ot 793.11 SOLITARY PULMONARY NODULE 12/17/2016 JENNIFER WOLFE MD Ot 577.9 PANCREATIC DISEASE NOS 12/17/2016 JENNIFER WOLFE MD Ot 577.9 PANCREATIC DISEASE NOS 12/17/2016 JENNIFER WOLFE MD Ot 577.9 PANCREATIC DISEASE NOS 12/17/2016 KENNETH LAZO, INGRID Mckeon Ot 157.9 MALIG LEX PANCREAS NOS 12/17/2016 KENNETH LAZO, INGRID Mckeon Ot V72.84 EXAM PRE-OPERATIVE NOS 12/17/2016 FARRIS, HILAH S STOCK TURNER Ot 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 PANCREAS HEAD 12/17/2016 MORENITA FARRIS S STOCK TURNER Ot 196.9 MAL LEX LYMPH NODE NOS 12/17/2016 MORENITA FARRIS S STOCK TURNER Ot V58.69 OTH MED,LT,CURRENT USE 12/17/2016 Ot 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 PANCREAS HEAD 12/17/2016 Ot 196.9 MAL LEX LYMPH NODE NOS 12/17/2016 Ot 285.9 ANEMIA NOS 12/17/2016 Ot 288.60 LEUKOCYTOSIS, UNSPECIFIED 12/17/2016 Ot 780.60 FEVER, UNSPECIFIED 12/17/2016 Ot 782.4 JAUNDICE NOS 12/17/2016 Ot V58.69 OTH MED,LT,CURRENT USE 12/17/2016 Ot 288.60 LEUKOCYTOSIS, UNSPECIFIED 12/17/2016 Ot 780.60 FEVER, UNSPECIFIED 12/17/2016 MORENITA FARRIS S STOCK TURNER Ot 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 PANCREAS HEAD 12/17/2016 MORENITA FARRIS S STOCK TURNER Ot 196.9 MAL LEX LYMPH NODE NOS 12/17/2016 MORENITA FARRIS S STOCK TURNER Ot 285.9 ANEMIA NOS 12/17/2016 MORENITA FARRIS S STOCK TURNER Ot V58.69 OTH MED,LT,CURRENT USE 12/17/2016 MORENITA FARRIS S STOCK TURNER Ot 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 PANCREAS HEAD 12/17/2016 MORENITA FARRIS S STOCK TURNER Ot 196.9 MAL LEX LYMPH NODE NOS 12/17/2016 MORENITA FARRIS S STOCK TURNER Ot 285.9 ANEMIA NOS 12/17/2016 MORENITA FARRIS S STOCK TURNER Ot V58.69 OTH MED,LT,CURRENT USE 12/17/2016 MORENITA FARRIS S STOCK TURNER Ot 157.9 MALIG LEX PANCREAS NOS 12/17/2016 ROBERT SWENSON MD Ot 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 PANCREAS HEAD 12/17/2016 ROBERT SWENSON MD Ot 196.9 MAL LEX LYMPH NODE NOS 12/17/2016 ROBERT SWENSON MD Ot 285.9 ANEMIA NOS 12/17/2016 ROBERT SWENSON MD Ot V58.69 OTH MED,LT,CURRENT USE 12/17/2016 MORENITA FARRIS S STOCK TURNER Ot 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 PANCREAS HEAD 12/17/2016 MORENITA FARRIS S STOCK TURNER Ot 196.9 MAL LEX LYMPH NODE NOS 12/17/2016 MORENITA FARRIS STOCK TURNER Ot 285.9 ANEMIA NOS 12/17/2016 MORENITA FARRISP Ot V58.69 OTH MED,LT,CURRENT USE 12/17/2016 MORENITA FARRIS STOCK TURNER Ot 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 PANCREAS HEAD 12/17/2016 MORENITA FARRIS STOCK TURNER Ot 196.9 MAL LEX LYMPH NODE NOS 12/17/2016 MORENITA FARRISP Ot 285.9 ANEMIA NOS 12/17/2016 MORENITA FARRISP Ot V58.69 OTH MED,LT,CURRENT USE 12/17/2016 MORENITA FARRIS STOCK TURNER Ot 157.9 MALIG LEX PANCREAS NOS 12/17/2016 MORENITA FARRIS STOCK TURNER Ot C25.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 12/17/2016 MORENITA FARRISP Ot 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 12/17/2016 MORENITA FARRIS STOCK TURNER Ot Z79.899 OTHER HALFWAY (CURRENT) DRUG THERAPY 12/17/2016 MORENITA FARRISP Ot C25.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 12/17/2016 MORENITA FARRIS STOCK TURNER Ot Z79.899 OTHER HALFWAY (CURRENT) DRUG THERAPY 12/17/2016 MORENITA FARRIS STOCK TURNER Ot C25.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 12/17/2016 MORENITA FARRIS STOCK TURNER Ot Z79.899 OTHER FORM SETTER METAL ROAD FORMS (CURRENT) DRUG THERAPY 12/17/2016 MORENITA FARRIS STOCK TURNER Ot C25.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 12/17/2016 MORENITA FARRIS STOCK TURNER Ot 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 12/17/2016 MORENITA FARRISP Ot 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 12/17/2016 MORENITA FARRISP Ot T45.1X5A ADVERSE EFFECT OF ANTINEOPLASTIC AND IMM 12/17/2016 MORENITA FARRIS STOCK TURNER Ot Z79.899 OTHER FORM SETTER METAL ROAD FORMS (CURRENT) DRUG THERAPY 12/17/2016 MORENITA FARRIS STOCK TURNER Ot C25.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 12/17/2016 FARRIS, HILAH S STOCK TURNER Ot C25.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 12/17/2016 MORENITA FARRISP Ot 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 12/17/2016 MORENITA FARRIS STOCK TURNER Ot I10 ESSENTIAL (PRIMARY) HYPERTENSION 12/17/2016 MORENITA FARRISP Ot Z79.899 OTHER HALFWAY (CURRENT) DRUG THERAPY 12/17/2016 YANETH LAZO, JENNIFER Hernandez Ot R31.9 HEMATURIA, UNSPECIFIED 12/17/2016 LOREANCELMO CONROY L STOCK TURNER Ot I10 ESSENTIAL (PRIMARY) HYPERTENSION 12/17/2016 BAIANCELMO CONROY L STOCK TURNER Ot I25.10 ATHSCL HEART DISEASE OF [place] CORONARY 12/17/2016 BAIREENA CONROYHER L STOCK TURNER Ot 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 12/17/2016 REENA MARIONHER L STOCK TURNER Ot 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 [facility] 12/17/2016 LOREANCELMO CONROY L STOCK TURNER Ot R00.2 PALPITATIONS 12/17/2016 DONI ANCELMO L STOCK TURNER Ot I10 ESSENTIAL (PRIMARY) HYPERTENSION 12/17/2016 ANCELMO MARION L STOCK TURNER Ot I25.10 ATHSCL HEART DISEASE OF [place] CORONARY 12/17/2016 BAIANCELMO CONROY L STOCK TURNER Ot 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 12/17/2016 BAIMAREENAANCELMO L STOCK TURNER Ot 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 [facility] 12/17/2016 LOREANCELMO CONROY L STOCK TURNER Ot R00.2 PALPITATIONS 12/17/2016 MORENITA FARRIS STOCK TURNER Ot C25.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 12/17/2016 MORENITA FARRIS STOCK TURNER Ot 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 12/17/2016 MORENITA FARRIS STOCK TURNER Ot I10 ESSENTIAL (PRIMARY) HYPERTENSION 12/17/2016 MORENITA FARRISP Ot R74.8 ABNORMAL LEVELS OF OTHER SERUM ENZYMES 12/17/2016 MORENITA FARRISP Ot Z79.899 OTHER FORM SETTER [address]AL [address] FORMS (CURRENT) DRUG THERAPY 12/17/2016 MORENITA FARRIS STOCK TURNER Ot C25.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 12/17/2016 MORENITA FARRISP Ot C25.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 12/17/2016 MORENITA FARRISP Ot 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 12/17/2016 MORENITA FARRIS STOCK TURNER Ot I10 ESSENTIAL (PRIMARY) HYPERTENSION 12/17/2016 MORENITA FARRISP Ot R74.8 ABNORMAL LEVELS OF OTHER SERUM ENZYMES 12/17/2016 MORENITA FARRISP Ot Z79.899 OTHER FORM SETTER METAL RO[address] FORMS (CURRENT) DRUG THERAPY 12/17/2016 MORENITA FARRIS STOCK TURNER Ot C25.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 12/17/2016 MORENITA FARRISP Ot 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 12/17/2016 MORENITA FARRISP Ot D64.9 ANEMIA, UNSPECIFIED 12/17/2016 MORENITA FARRISP Ot I10 ESSENTIAL (PRIMARY) HYPERTENSION 12/17/2016 MORENITA FARRISP Ot Z79.899 OTHER HALFWAY (CURRENT) DRUG THERAPY 12/17/2016 MORENITA FARRISP Ot C25.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 12/17/2016 MORENITA FARRIS STOCK TURNER Ot C25.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 12/17/2016 XIN PATE Lilli Ot C25.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 12/17/2016 HERLINDAXIN Ot 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 12/17/2016 XIN PATE Ot D64.9 ANEMIA, UNSPECIFIED 12/17/2016 XIN PATE Ot Z23 ENCOUNTER FOR IMMUNIZATION 12/17/2016 XIN PATE Ot Z79.899 OTHER FORM SETTER METAL ROAD FORMS (CURRENT) DRUG THERAPY 12/17/2016 Ot 401.9 HYPERTENSION NOS 12/17/2016 Ot 785.1 PALPITATIONS 12/17/2016 Ot V12.59 HX-CIRCULATORY SYST DIS,NEC 12/17/2016 Ot V15.82 HISTORY OF TOBACCO USE 12/17/2016 YANETH LAZO, JENNIFER Hernandez Ot V76.12 OTH SCREEN MAMMO-MALIGN NEOPLASM OF [place] 12/17/2016 YANETH LAZO, JENNIFER Hernandez Ot 272.4 HYPERLIPIDEMIA NEC/NOS 12/17/2016 JENNIFER WOLFE MD Ot 414.01 CORONARY ATHEROSCLEROSIS OF [place] CORON 12/17/2016 YANETH LAZO, JENNIFER Hernandez Ot 786.50 CHEST PAIN NOS 12/17/2016 YANETH LAZO, JENNIFER Hernandez Ot 789.00 ABDOMINAL PAIN, UNSPECIFIED SITE 12/17/2016 YANETH LAZO, JENNIFER Hernandez Ot 793.11 SOLITARY PULMONARY NODULE 12/17/2016 YANETH LAZO, JENNIFER Hernandez Ot 577.9 PANCREATIC DISEASE NOS 12/17/2016 YANETH LAZO, JENNIFER Hernandez Ot 577.9 PANCREATIC DISEASE NOS 12/17/2016 YANETH LAZO, JENNIFER Hernandez Ot 577.9 PANCREATIC DISEASE NOS 12/17/2016 KENNETH LAZO, INGRID S Ot 157.9 MALIG LEX PANCREAS NOS 12/17/2016 KENNETH LAZO, INGRID S Ot V72.84 EXAM PRE-OPERATIVE NOS 12/17/2016 FARRISGERAAH S STOCK TURNER Ot 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 PANCREAS HEAD 12/17/2016 FARRIS HILAH S STOCK TURNER Ot 196.9 MAL LEX LYMPH NODE NOS 12/17/2016 FARRIS, HILAH S STOCK TURNER Ot V58.69 OTH MED,LT,CURRENT USE 12/17/2016 Ot 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 PANCREAS HEAD 12/17/2016 Ot 196.9 MAL LEX LYMPH NODE NOS 12/17/2016 Ot 285.9 ANEMIA NOS 12/17/2016 Ot 288.60 LEUKOCYTOSIS, UNSPECIFIED 12/17/2016 Ot 780.60 FEVER, UNSPECIFIED 12/17/2016 Ot 782.4 JAUNDICE NOS 12/17/2016 Ot V58.69 OTH MED,LT,CURRENT USE 12/17/2016 Ot 288.60 LEUKOCYTOSIS, UNSPECIFIED 12/17/2016 Ot 780.60 FEVER, UNSPECIFIED 12/17/2016 FARRISGERAAH S STOCK TURNER Ot 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 PANCREAS HEAD 12/17/2016 FARRIS HILAH S STOCK TURNER Ot 196.9 MAL LEX LYMPH NODE NOS 12/17/2016 FARRIS HILAH S STOCK TURNER Ot 285.9 ANEMIA NOS 12/17/2016 FARRISGERAAH S STOCK TURNER Ot V58.69 OTH MED,LT,CURRENT USE 12/17/2016 FARRIS HILAH S STOCK TURNER Ot 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 PANCREAS HEAD 12/17/2016 FARRIS HILAH S STOCK TURNER Ot 196.9 MAL LEX LYMPH NODE NOS 12/17/2016 FARRIS HILAH S STOCK TURNER Ot 285.9 ANEMIA NOS 12/17/2016 MORENITA FARRIS STOCK TURNER Ot V58.69 OTH MED,LT,CURRENT USE 12/17/2016 MORENITA FARRIS S STOCK TURNER Ot 157.9 MALIG LEX PANCREAS NOS 12/17/2016 MESSI LAZO, THOMAS-KEVAN Ot 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 PANCREAS HEAD 12/17/2016 MESSI LAZO, THOMAS-KEVAN Ot 196.9 MAL LEX LYMPH NODE NOS 12/17/2016 MESSI LAZO, ROBERT Ot 285.9 ANEMIA NOS 12/17/2016 MESSI LAZO, ROBERT Ot V58.69 OTH MED,LT,CURRENT USE 12/17/2016 MORENITA FARRIS S STOCK TURNER Ot 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 PANCREAS HEAD 12/17/2016 MORENITA FARRIS S STOCK TURNER Ot 196.9 MAL LEX LYMPH NODE NOS 12/17/2016 MORENITA FARRIS S STOCK TURNER Ot 285.9 ANEMIA NOS 12/17/2016 MORENITA FARRIS S STOCK TURNER Ot V58.69 OTH MED,LT,CURRENT USE 12/17/2016 MORENITA FARRIS STOCK TURNER Ot 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 PANCREAS HEAD 12/17/2016 MORENITA FARRIS S STOCK TURNER Ot 196.9 MAL LEX LYMPH NODE NOS 12/17/2016 MORENITA FARRIS S STOCK TURNER Ot 285.9 ANEMIA NOS 12/17/2016 MORENITA FARRIS S STOCK TURNER Ot V58.69 OTH MED,LT,CURRENT USE 12/17/2016 MORENITA FARRIS S STOCK TURNER Ot 157.9 MALIG LEX PANCREAS NOS 12/17/2016 MORENITA FARRIS STOCK TURNER Ot C25.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 12/17/2016 MORENITA FARRIS STOCK TURNER Ot 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 12/17/2016 MORENITA FARRIS STOCK TURNER Ot Z79.899 OTHER HALFWAY (CURRENT) DRUG THERAPY 12/17/2016 MORENITA FARRIS S STOCK TURNER Ot C25.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 12/17/2016 MORENITA FARRIS S STOCK TURNER Ot Z79.899 OTHER FORM SETTER METAL ROAD FORMS (CURRENT) DRUG THERAPY 12/17/2016 MORENITA FARRIS STOCK TURNER Ot C25.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 12/17/2016 MORENITA FARRIS STOCK TURNER Ot Z79.899 OTHER HALFWAY (CURRENT) DRUG THERAPY 12/17/2016 MORENITA FARRIS STOCK TURNER Ot C25.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 12/17/2016 MORENITA FARRISP Ot 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 12/17/2016 MORENITA FARRISP Ot 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 12/17/2016 MORENITA FARRISP Ot T45.1X5A ADVERSE EFFECT OF ANTINEOPLASTIC AND IMM 12/17/2016 MORENITA FARRIS STOCK TURNER Ot Z79.899 OTHER HALFWAY (CURRENT) DRUG THERAPY 12/17/2016 MORENITA FARRIS STOCK TURNER Ot C25.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 12/17/2016 MORENITA FARRISP Ot C25.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 12/17/2016 MORENITA FARRISP Ot 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 12/17/2016 MORENITA FARRIS STOCK TURNER Ot I10 ESSENTIAL (PRIMARY) HYPERTENSION 12/17/2016 MORENITA FARRIS STOCK TURNER Ot Z79.899 OTHER FORM SETTER METAL ROAD FORMS (CURRENT) DRUG THERAPY 12/17/2016 YANETH LAZO, JENNIFER Hernandez Ot R31.9 HEMATURIA, UNSPECIFIED 12/17/2016 ANCELMO MARION L STOCK TURNER Ot I10 ESSENTIAL (PRIMARY) HYPERTENSION 12/17/2016 ANCELMO MARION STOCK TURNER Ot I25.10 ATHSCL HEART DISEASE OF [place] CORONARY 12/17/2016 ANCELMO MARION STOCK TURNER Ot 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 12/17/2016 ANCELMO MARION L STOCK TURNER Ot 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 [facility] 12/17/2016 ANCELMO MARION L STOCK TURNER Ot R00.2 PALPITATIONS 12/17/2016 ANCELMO MARION L STOCK TURNER Ot I10 ESSENTIAL (PRIMARY) HYPERTENSION 12/17/2016 ANCELMO MARION L STOCK TURNER Ot I25.10 ATHSCL HEART DISEASE OF [place] CORONARY 12/17/2016 ANCELMO MARION L STOCK TURNER Ot 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 12/17/2016 ANCELMO MARION L STOCK TURNER Ot 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 EXTRM W INTRMT 12/17/2016 ANCELMO MARION STOCK TURNER Ot R00.2 PALPITATIONS 12/17/2016 MORENITA FARRIS STOCK TURNER Ot C25.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 12/17/2016 MORENITA FARRIS STOCK TURNER Ot 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 12/17/2016 MORENITA FARRIS STOCK TURNER Ot I10 ESSENTIAL (PRIMARY) HYPERTENSION 12/17/2016 MORENITA FARRIS STOCK TURNER Ot R74.8 ABNORMAL LEVELS OF OTHER SERUM ENZYMES 12/17/2016 MORENITA FARRIS S STOCK TURNER Ot Z79.899 OTHER FORM SETTER METAL ROAD FORMS (CURRENT) DRUG THERAPY 12/17/2016 MORENITA FARRIS STOCK TURNER Ot C25.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 12/17/2016 MORENITA FARRIS STOCK TURNER Ot C25.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 12/17/2016 MORENITA FARRIS STOCK TURNER Ot 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 12/17/2016 MORENITA FARRIS STOCK TURNER Ot I10 ESSENTIAL (PRIMARY) HYPERTENSION 12/17/2016 MORENITA FARRIS STOCK TURNER Ot R74.8 ABNORMAL LEVELS OF OTHER SERUM ENZYMES 12/17/2016 MORENITA FARRIS STOCK TURNER Ot Z79.899 OTHER HALFWAY (CURRENT) DRUG THERAPY 12/17/2016 MORENITA FARRIS STOCK TURNER Ot C25.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 12/17/2016 MORENITA FARRIS STOCK TURNER Ot 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 12/17/2016 MORENITA FARRIS STOCK TURNER Ot D64.9 ANEMIA, UNSPECIFIED 12/17/2016 MORENITA FARRIS STOCK TURNER Ot I10 ESSENTIAL (PRIMARY) HYPERTENSION 12/17/2016 MORENITA FARRIS STOCK TURNER Ot Z79.899 OTHER FORM SETTER METAL ROAD FORMS (CURRENT) DRUG THERAPY 12/17/2016 MORENITA FARRIS STOCK TURNER Ot C25.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 12/17/2016 MORENITA FARRIS S STOCK TURNER Ot C25.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 12/17/2016 XIN PATE Ot C25.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 12/17/2016 XIN PATE Ot 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 12/17/2016 XIN PATE N Ot D64.9 ANEMIA, UNSPECIFIED 12/17/2016 XIN PATE Lilli Ot Z23 ENCOUNTER FOR IMMUNIZATION 12/17/2016 XIN PATE Lilli Ot Z79.899 OTHER HALFWAY (CURRENT) DRUG THERAPY 12/18/2016 MORENITA FARRIS S STOCK TURNER Ot C25.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 12/18/2016 FARRISMORENITA S STOCK TURNER Ot R22.2 LOCALIZED SWELLING, MASS AND LUMP, TRUNK 12/18/2016 FARRISMORENITA S STOCK TURNER Ot R59.0 LOCALIZED ENLARGED LYMPH NODES 12/18/2016 FARRISMORENITA S STOCK TURNER Ot R91.8 OTHER NONSPECIFIC ABNORMAL FINDING OF VIKKI 12/18/2016 IXN PATE N Ot C25.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 12/18/2016 XIN PATE Lilli Ot 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 12/18/2016 XIN PATE Lilli Ot D64.9 ANEMIA, UNSPECIFIED 12/18/2016 XIN PATE Lilli Ot Z79.899 OTHER HALFWAY (CURRENT) DRUG THERAPY 12/18/2016 FARRISMORENITA S STOCK TURNER Ot C25.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 12/18/2016 FARRISMORENITA S STOCK TURNER Ot R22.2 LOCALIZED SWELLING, MASS AND LUMP, TRUNK 12/18/2016 FARRISMORENITA S STOCK TURNER Ot R59.0 LOCALIZED ENLARGED LYMPH NODES 12/18/2016 FARRISMORENITA S STOCK TURNER Ot R91.8 OTHER NONSPECIFIC ABNORMAL FINDING OF VIKKI 12/30/2016 XIN PATE N Ot C25.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 12/30/2016 XIN PATE Lilli Ot 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 12/30/2016 XIN PATE N Ot D64.9 ANEMIA, UNSPECIFIED 12/30/2016 XIN PATE Lilli Ot Z79.899 OTHER FORM SETTER METAL ROAD FORMS (CURRENT) DRUG THERAPY 01/07/2017 FARRISMORENITA S STOCK TURNER Ot C25.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 01/07/2017 FARRIS MORENITA S STOCK TURNER Ot R22.2 LOCALIZED SWELLING, MASS AND LUMP, TRUNK 01/07/2017 FARRIS MORENITA S STOCK TURNER Ot R59.0 LOCALIZED ENLARGED LYMPH NODES 01/07/2017 MORENITA FARRIS STOCK TURNER Ot R91.8 OTHER NONSPECIFIC ABNORMAL FINDING OF VIKKI 01/14/2017 MORENITA FARRIS STOCK TURNER Ot C25.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 01/14/2017 MORENITA FARRIS STOCK TURNER Ot R22.2 LOCALIZED SWELLING, MASS AND LUMP, TRUNK 01/14/2017 MORENITA FARRIS STOCK TURNER Ot R59.0 LOCALIZED ENLARGED LYMPH NODES 01/14/2017 MORENITA FARRIS STOCK TURNER Ot R91.8 OTHER NONSPECIFIC ABNORMAL FINDING OF VIKKI 01/21/2017 XIN PATE Lilli Ot C25.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 01/21/2017 HERLINDAXIN Ot 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 01/21/2017 HERLINDAXIN Ot D64.9 ANEMIA, UNSPECIFIED 01/21/2017 XIN PATE Ot Z79.899 OTHER HALFWAY (CURRENT) DRUG THERAPY 01/23/2017 RONEL MARES NEWSPAPER DELIVERY COUNSELOR Ot 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, UNSPECIF 01/23/2017 RONEL MARES APRN Ot I10 ESSENTIAL (PRIMARY) HYPERTENSION 01/23/2017 RONEL MARES APRN Ot M47.814 SPONDYLOSIS W/O MYELOPATHY OR RADICULOPA 01/23/2017 RONEL MARES NEWSPAPER DELIVERY COUNSELOR Ot M47.816 SPONDYLOSIS W/O MYELOPATHY OR RADICULOPA 01/23/2017 RONEL MARES APRN Ot M54.6 PAIN IN THORACIC SPINE 01/23/2017 RONEL MARES NEWSPAPER DELIVERY COUNSELOR Ot Z79.899 OTHER FORM SETTER METAL ROAD FORMS (CURRENT) DRUG THERAPY 01/25/2017 RONEL MARES APRN Ot 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, UNSPECIF 01/25/2017 RONEL MARES NEWSPAPER DELIVERY COUNSELOR Ot I10 ESSENTIAL (PRIMARY) HYPERTENSION 01/25/2017 RONEL MARES APRN Ot M47.814 SPONDYLOSIS W/O MYELOPATHY OR RADICULOPA 01/25/2017 RONEL MARES NEWSPAPER DELIVERY COUNSELOR Ot M47.816 SPONDYLOSIS W/O MYELOPATHY OR RADICULOPA 01/25/2017 RONEL MARES NEWSPAPER DELIVERY COUNSELOR Ot M54.6 PAIN IN THORACIC SPINE 01/25/2017 RONEL MARES APRN Ot Z79.899 OTHER HALFWAY (CURRENT) DRUG THERAPY Procedures Code Description Performed By Performed On 88.42 CONTRAST AORTOGRAM 11/19/2011 88.48 CONTRAST ARTERIOGRAM-LEG 11/19/2011 38.48 LEG ARTERY RESEC W REPLA 11/20/2011 39.29 VASC SHUNT BYPASS NEC 11/20/2011 Results Test Result Range Complete blood count (CBC) with automated white blood cell (WBC) differential - 01/23/17 16:58 Blood leukocytes automated count (number/volume) 9.3 10*3/ uL 4.3-11.0 Blood erythrocytes automated count (number/volume) 3.20 10*6 /uL 4.35-5.85 Venous blood hemoglobin measurement (mass/volume) 10.1 g/dL 11.5-16.0 Blood hematocrit (volume fraction) 30 % 35-52 Automated erythrocyte mean corpuscular volume 94 [foz_us] 80-99 Automated erythrocyte mean corpuscular hemoglobin (mass per erythrocyte) 32 pg 25-34 Automated erythrocyte mean corpuscular hemoglobin concentration measurement ( mass/volume) 34 g/dL 32-36 Automated erythrocyte distribution width ratio 14.9 % 10.0-14.5 Automated blood platelet count (count/volume) 302 10*3/uL 130-400 Automated blood platelet mean volume measurement 9.4 [foz_us ] 7.4-10.4 Automated blood neutrophils/100 leukocytes 74 % 42-75 Automated blood lymphocytes/100 leukocytes 22 % 12-44 Blood monocytes/100 leukocytes 2 % 0-12 Automated blood eosinophils/100 leukocytes 2 % 0-10 Automated blood basophils/100 leukocytes 0 % 0-10 Blood neutrophils automated count (number/volume) 6.9 10*3 1.8-7.8 Blood lymphocytes automated count (number/volume) 2.1 10*3 1.0-4.0 Blood monocytes automated count (number/volume) 0.2 10*3 0.0-1.0 Automated eosinophil count 0.2 10*3/uL 0.0-0.3 Automated blood basophil count (count/volume) 0.0 10*3/uL 0.0-0.1 Comprehensive metabolic panel - 01/23/17 16:58 Serum or plasma sodium measurement (moles/volume) 134 mmol/ L 135-145 Serum or plasma potassium measurement (moles/volume) 5.0 mmol/L 3.6-5.0 Serum or plasma chloride measurement (moles/volume) 104 mmol /L 98-107 Carbon dioxide 20 mmol/L 21-32 Serum or plasma anion gap determination (moles/volume) 10 mmol/L 5-14 Serum or plasma urea nitrogen measurement (mass/volume) 23 mg/dL 7-18 Serum or plasma creatinine measurement (mass/volume) 0.95 mg /dL 0.60-1.30 Serum or plasma urea nitrogen/creatinine mass ratio 24 NRG Serum or plasma creatinine measurement with calculation of estimated glomerular filtration rate 57 NRG Serum or plasma glucose measurement (mass/volume) 100 mg/dL 70-105 Serum or plasma calcium measurement (mass/volume) 8.4 mg/dL 8.5-10.1 Serum or plasma total bilirubin measurement (mass/volume) 0.7 mg/dL 0.1-1.0 Serum or plasma alkaline phosphatase measurement (enzymatic activity/volume) 68 U/L 40-136 Serum or plasma aspartate aminotransferase measurement (enzymatic activity/ volume) 28 U/L 5-34 Serum or plasma alanine aminotransferase measurement (enzymatic activity/volume ) 16 U/L 0-55 Serum or plasma protein measurement (mass/volume) 6.6 g/dL 6.4-8.2 Serum or plasma albumin measurement (mass/volume) 3.4 g/dL 3.2-4.5 Lipase - 01/23/17 16:58 Lipase < U/L 8-78 Complete urinalysis with reflex to culture - 02/04/17 18:57 Urine color determination YELLOW NRG Urine clarity determination SLIGHTLY CLOUDY NRG Urine pH measurement by test strip 7 5- 9 Specific gravity of urine by test strip 1.015 1.016-1.022 Urine protein assay by test strip, semi-quantitative NEGATIVE NEGATIVE Urine glucose detection by automated test strip NEGATIVE NEGATIVE Erythrocytes detection in urine sediment by light microscopy NEGATIVE NEGATIVE Urine ketones detection by automated test strip NEGATIVE NEGATIVE Urine nitrite detection by test strip NEGATIVE NEGATIVE Urine total bilirubin detection by test strip NEGATIVE NEGATIVE Urine urobilinogen measurement by automated test strip (mass/volume) 1 mg/dL NORMAL Urine leukocyte esterase detection by dipstick 3+ NEGATIVE Automated urine sediment erythrocyte count by microscopy (number/high power field) NONE NRG Automated urine sediment leukocyte count by microscopy (number/high power field ) [HPF] NRG Bacteria detection in urine sediment by light microscopy TRACE NRG Squamous epithelial cells detection in urine sediment by light microscopy 5-10 NRG Crystals detection in urine sediment by light microscopy NONE NRG Casts detection in urine sediment by light microscopy NONE NRG Mucus detection in urine sediment by light microscopy NEGATIVE NRG Complete urinalysis with reflex to culture YES NRG Renal epithelial cells detection in urine sediment by light microscopy 0-2 NRG Bacterial urine culture - 02/04/17 18:57 Bacterial urine culture FOOTNOTE NRG Complete blood count (CBC) with automated white blood cell (WBC) differential - 02/04/17 19:25 Blood leukocytes automated count (number/volume) 9.7 10*3/ uL 4.3-11.0 Blood erythrocytes automated count (number/volume) 3.01 10*6 /uL 4.35-5.85 Venous blood hemoglobin measurement (mass/volume) 9.6 g/dL 11.5-16.0 Blood hematocrit (volume fraction) 29 % 35-52 Automated erythrocyte mean corpuscular volume 96 [foz_us] 80-99 Automated erythrocyte mean corpuscular hemoglobin (mass per erythrocyte) 32 pg 25-34 Automated erythrocyte mean corpuscular hemoglobin concentration measurement ( mass/volume) 33 g/dL 32-36 Automated erythrocyte distribution width ratio 16.2 % 10.0-14.5 Automated blood platelet count (count/volume) 240 10*3/uL 130-400 Automated blood platelet mean volume measurement 9.1 [foz_us ] 7.4-10.4 Automated blood neutrophils/100 leukocytes 55 % 42-75 Automated blood lymphocytes/100 leukocytes 20 % 12-44 Blood monocytes/100 leukocytes 17 % 0-12 Automated blood eosinophils/100 leukocytes 8 % 0-10 Automated blood basophils/100 leukocytes 1 % 0-10 Blood neutrophils automated count (number/volume) 5.3 10*3 1.8-7.8 Blood lymphocytes automated count (number/volume) 1.9 10*3 1.0-4.0 Blood monocytes automated count (number/volume) 1.7 10*3 0.0-1.0 Automated eosinophil count 0.8 10*3/uL 0.0-0.3 Automated blood basophil count (count/volume) 0.1 10*3/uL 0.0-0.1 PT panel in platelet poor plasma by coagulation assay - 02/04/17 19:25 Prothrombin time (PT) in platelet poor plasma by coagulation assay 13.8 s 12.2-14.7 INR in platelet poor plasma or blood by coagulation assay 1.1 0.8-1.4 Activated partial thromboplastin time (aPTT) in platelet poor plasma bycoagulation assay - 02/04/17 19:25 Activated partial thromboplastin time (aPTT) in platelet poor plasma bycoagulation assay 32 s 24-35 Comprehensive metabolic panel - 02/04/17 19:25 Serum or plasma sodium measurement (moles/volume) 137 mmol/ L 135-145 Serum or plasma potassium measurement (moles/volume) 4.9 mmol/L 3.6-5.0 Serum or plasma chloride measurement (moles/volume) 106 mmol /L 98-107 Carbon dioxide 23 mmol/L 21-32 Serum or plasma anion gap determination (moles/volume) 8 mmol/L 5-14 Serum or plasma urea nitrogen measurement (mass/volume) 17 mg/dL 7-18 Serum or plasma creatinine measurement (mass/volume) 1.07 mg /dL 0.60-1.30 Serum or plasma urea nitrogen/creatinine mass ratio 16 NRG Serum or plasma creatinine measurement with calculation of estimated glomerular filtration rate 49 NRG Serum or plasma glucose measurement (mass/volume) 105 mg/dL 70-105 Serum or plasma calcium measurement (mass/volume) 8.6 mg/dL 8.5-10.1 Serum or plasma total bilirubin measurement (mass/volume) 0.7 mg/dL 0.1-1.0 Serum or plasma alkaline phosphatase measurement (enzymatic activity/volume) 78 U/L 40-136 Serum or plasma aspartate aminotransferase measurement (enzymatic activity/ volume) 19 U/L 5-34 Serum or plasma alanine aminotransferase measurement (enzymatic activity/volume ) 11 U/L 0-55 Serum or plasma protein measurement (mass/volume) 6.1 g/dL 6.4-8.2 Serum or plasma albumin measurement (mass/volume) 3.2 g/dL 3.2-4.5 Serum or plasma amylase measurement (enzymatic activity/volume) - 02/04/17 19: 25 Serum or plasma amylase measurement (enzymatic activity/volume) 51 U/L 25-125 Lipase - 02/04/17 19:25 Lipase 4 U/L 8-78 Encounters ACCT No. Visit Date/Time Discharge Status Pt. Type Provider Facility Loc./Unit Complaint [id number] 01/23/2017 15:31:00 2016 18:42:00 DIS Emergency RONEL MARES APRN [facility] ER BACK PAIN [id number] 11/05/2016 13:19:00 2016 00:01:00 DIS Outpatient XIN PATE Lilli [facility] ONC [id number] 07/14/2016 14:37:00 2015 11:10:00 DIS Outpatient XIN PATE Lilli [facility] ONC [id number] 05/29/2016 19:32:00 2015 00:59:00 DIS Emergency DINAH MELISSA [facility] ER PALENESS/ABD SIDE PAIN [id number] 04/27/2016 12:55:00 2015 00:01:00 DIS Outpatient HERLINDAXIN Lilli [facility] ONC [id number] 02/06/2016 09:00:00 2015 00:01:00 DIS Outpatient XIN PATE Lilli [facility] ONC [id number] 12/15/2015 09:04:00 2015 12:20:00 DIS Emergency ZAYRA ELIZONDO MD [facility] ER L SIDE NUMBNESS [id number] 11/12/2015 13:50:00 2015 00:01:00 DIS Outpatient HERLINDAXIN Lilli [facility] ONC [id number] 10/01/2015 13:14:00 2014 23:59:59 CLS Outpatient MORENITA FARRIS STOCK TURNER [facility] ONC [id number] 09/10/2015 13:18:00 2014 23:59:59 CLS Outpatient MORENITA FARRIS STOCK TURNER [facility] ONC [id number] 08/20/2015 13:54:00 2014 23:59:59 CLS Outpatient MORENITA FARRIS STOCK TURNER [facility] ONC [id number] 08/06/2015 13:20:00 2014 00:01:00 DIS Outpatient XIN PATE Lilli [facility] ONC [id number] 07/29/2015 09:10:00 2014 23:59:59 CLS Outpatient FARRIS HILAH S STOCK TURNER [facility] RAD PANCREATIC CANCER [id number] 07/16/2015 13:13:00 2014 23:59:59 CLS Outpatient FARRIS HILAH S STOCK TURNER [facility] ONC [id number] 06/25/2015 10:33:00 2014 23:59:59 CLS Outpatient FARRIS HILAH S STOCK TURNER [facility] ONC [id number] 06/11/2015 13:45:00 2014 00:01:00 DIS Outpatient HERLINDA XIN Reeder [facility] ONC [id number] 05/28/2015 14:00:00 2014 23:59:59 CLS Outpatient MESSI LAZO, ROBERT [facility] ONC [id number] 05/01/2015 09:20:00 2014 23:59:59 CLS Outpatient FARRIS HILAH S STOCK TURNER [facility] RAD PANCREATIC CANCER [id number] 04/16/2015 13:44:00 2014 23:59:59 CLS Outpatient FARRIS HILAH S STOCK TURNER [facility] ONC [id number] 02/19/2015 13:57:00 2014 23:59:59 CLS Outpatient FARRIS HILAH S STOCK TURNER [facility] ONC [id number] 01/01/2015 13:54:00 2014 23:59:59 CLS Outpatient HERLINDA MARILUANGELICA Lilli [facility] ONC [id number] 12/28/2014 05:53:00 2014 09:01:00 DIS Emergency MIKHAIL LAZO, ZAYRA Crowley [facility] ER HEART PALPITATIONS [id number] 12/25/2014 14:03:00 2014 23:59:59 CLS Outpatient FARRIS, HILAH S STOCK TURNER [facility] ONC [id number] 12/21/2014 06:04:00 2014 10:31:00 DIS Outpatient INGRID COOPER MD [facility] SDC PANCREATIC CANCER [id number] 12/19/2014 11:07:00 2014 23:59:59 CLS Outpatient INGRID COOPER MD [facility] PREOP PANCREATIC CANCER [id number] 12/12/2014 08:38:00 2014 16:20:00 DIS Outpatient JENNIFER WOLFE MD [facility] RAD PANCREATIC MASS [id number] 12/04/2014 12:21:00 2014 23:59:59 CLS Outpatient JENNIFER WOLFE MD [facility] RAD ABDOMINAL MASS [id number] 11/30/2014 14:45:00 2014 23:59:59 CLS Outpatient JENNIFER WOLFE MD [facility] RAD PANCREATIC MASS [id number] 11/30/2014 08:02:00 2014 23:59:59 CLS Outpatient JENNIFER WOLFE MD [facility] RAD PANCREATIC MASS [id number] 11/27/2014 08:49:00 2014 23:59:59 CLS Outpatient JENNIFER WOLFE MD [facility] CARD CHEST ABDOMINAL PAIN M8GRIMA [id number] 10/04/2014 09:57:00 2013 17:50:00 DIS Outpatient INGRID COOPER MD [facility] CATH ASOD,LEG PAIN [id number] 06/05/2014 10:17:00 2013 23:59:59 CLS Outpatient JENNIFER WOLFE MD [facility] RAD SCREENING [id number] 02/04/2017 19:29:00 Document Registration [id number] 01/14/2017 13:26:00 ACT Outpatient XIN PATE [facility] ONC [id number] 12/17/2016 10:15:00 ACT Outpatient MORENITA FARRIS [facility] RAD PANCREATIC CANCER, LUNG NODULE [id number] 09/24/2016 10:07:00 ACT Outpatient MORENITA FARRIS STOCK TURNER [facility] RAD PANCREATIC CANCER [id number] 07/14/2016 07:39:00 PEN Preadmit MORENITA FARRIS STOCK TURNER [facility] ONC [id number] 04/22/2016 10:25:00 ACT Outpatient MORENITA FARRIS S STOCK TURNER [facility] RAD PANCREATIC CANCER [id number] 03/17/2016 10:59:00 ACT Outpatient MORENITA FARRIS S STOCK TURNER [facility] ONC [id number] 02/06/2016 08:57:00 ACT Outpatient MORENITA FARRIS S STOCK TURNER [facility] ONC [id number] 01/31/2016 09:37:00 ACT Outpatient MORENITA FARRIS S STOCK TURNER [facility] RAD PANCREATIC CANCER [id number] 01/28/2016 10:39:00 ACT Outpatient MORENITA FARRIS STOCK TURNER [facility] ONC [id number] 01/21/2016 12:15:00 ACT Outpatient BAIANCELMO CONROY L STOCK TURNER [facility] CARD PALPITATIONS,CAD,HTN,PAD [id number] 01/16/2016 07:45:00 ACT Outpatient BAIMARYCARMEN ANCELMO L STOCK TURNER [facility] CARD PALPITATIONS,CAD,PAD,HTN [id number] 12/16/2015 15:44:00 ACT Outpatient YANETH LAZO, JENNIFER Hernanedz [facility] RAD HEMATURIA [id number] 12/13/2015 12:18:00 ACT Emergency MIKHAIL LAZO, ZAYRA Crowley [facility] ER SOA [id number] 12/05/2015 16:39:00 ACT Outpatient MORENITA FARRIS STOCK TURNER [facility] ONC [id number] 11/27/2015 08:34:00 ACT Outpatient MORENITA FARRIS S STOCK TURNER [facility] RAD PANCREATIC CANCER [id number] 11/12/2015 13:52:00 ACT Outpatient MORENITA FARRIS STOCK TURNER [facility] ONC [id number] 02/05/2015 09:19:00 Document Registration [id number] 02/01/2015 10:17:00 Document Registration [id number] 11/27/2014 08:49:00 Document Registration [id number] 11/27/2014 08:49:00 Document Registration [id number] 11/27/2014 08:49:00 Document Registration [id number] 11/27/2014 08:48:00 Document Registration [id number] 08/26/2012 10:27:00 Document Registration [id number] 11/19/2011 11:20:00 Document Registration [id number] 10/28/2011 19:50:00 Document Registration [id number] 03/04/2011 10:10:00 Document Registration [id number] 03/02/2011 14:10:00 Document Registration [id number] 02/17/2011 19:16:00 Document Registration [id number] 11/27/2010 13:05:00 Document Registration [id number] 01/15/2010 14:23:00 Document Registration [id number] 08/28/2008 16:45:00 Document Registration
--- OUTSIDE RECORDS SUMMARY | 2017-02-07 10:55 | XMS REPORT | Continuity of Care Document ---
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 POLICY ADVISER (CURRENT) DRUG THERAPY 02/24/2011 Ot 250.00 02/24/2011 [...] 285.9 ANEMIA NOS 11/28/2011 Ot 440.20 ATHEROSCLEROSIS [place]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 11/28/2011 Ot 440.4 CHRONIC TOTAL [...] 10/04/2014 INGRID COOPER MD Ot 440.21 ATHEROSCL [place] ARTER EXTREM W INTERMIT 10/04/2014 INGRID COOPER [...] 157.9 MALIG LEX PANCREAS NOS 12/25/2014 YANETH LAZO, JENNIFER Hernandez Ot 577.9 12/25/2014 HERLINDA, XIN N Ot 157.9 12/27/2014 YANETH LAZO, JENNIFER Hernandez Ot 272.4 12/27/2014 YANETH LAZO, JENNIFER Hernandez Ot 414.01 12/27/2014 YANETH LAZO, JENNIFER Hernandez Ot 786.50 12/27/2014 YANETH LAZO, JENNIFER Hernandez Ot 789.00 12/27/2014 YANETH LAZO, JENNIFER Hernandez Ot 793.11 12/28/2014 ZAYRA ELIZONDO MD Ot 157.9 MALIG LEX PANCREAS NOS 12/28/2014 ZAYRA ELIZONDO MD Ot 785.1 PALPITATIONS 12/28/2014 ZAYRA ELIZONDO MD Ot 786.50 CHEST PAIN NOS [...] N Ot 157.9 03/19/2015 MORENITA FARRIS S TERMINAL CLERK Ot 157.0 03/19/2015 FARRISMORENITA S TERMINAL CLERK Ot 196.9 03/19/2015 FARRISMORENITA S TERMINAL CLERK Ot 285.9 03/19/2015 FARRISMORENITA S TERMINAL CLERK Ot V58.69 05/08/2015 FARRISMORENITA S TERMINAL CLERK Ot 157.0 05/08/2015 FARRISGERAAH S TERMINAL CLERK Ot 196.9 05/08/2015 MORENITA FARRIS TERMINAL CLERK Ot 285.9 05/08/2015 FARRISMORENITA Mckeon S TERMINAL CLERK Ot V58.69 05/10/2015 MORENITA FARRIS S TERMINAL CLERK Ot 157.0 05/10/2015 FARRISMORENITA Mckeon S TERMINAL CLERK Ot 196.9 05/10/2015 FARRISMORENITA Mckeon S TERMINAL CLERK Ot 285.9 05/10/2015 FARRISMORENITA Mckeon S TERMINAL CLERK Ot V58.69 05/22/2015 HRELINDA, BOBAN N Ot 157.0 05/22/2015 HERLINDA, BOBAN N Ot 196.9 05/22/2015 HERLINDA, BOBAN N Ot 285.9 05/22/2015 HERLINDA, BOBAN N Ot V58.11 05/22/2015 HERLINDA, BOBAN N Ot V58.69 05/22/2015 FARRISMORENITA Mckeon S TERMINAL CLERK Ot 157.9 05/23/2015 HERLINDA, BOBAN N Ot 157.0 05/23/2015 HERLINDA, BOBAN N Ot 196.9 05/23/2015 HERLINDA, BOBAN N Ot 285.9 05/23/2015 HERLINDA, BOBAN N Ot V58.11 05/23/2015 HERLINDA, BOBAN N Ot V58.69 05/23/2015 FARRISMORENITA Mckeon TERMINAL CLERK Ot 157.9 06/16/2015 HERLINDA, BOBAN N Ot [...] N Ot V58.69 07/03/2015 KALEIGH HILAH S TERMINAL CLERK Ot 157.0 07/03/2015 FARRIS, HILAH S TERMINAL CLERK Ot 196.9 07/03/2015 FARRIS HILAH S TERMINAL CLERK Ot 285.9 07/03/2015 FARRIS, HILAH S TERMINAL CLERK Ot V58.69 07/03/2015 FARRIS, HILAH S TERMINAL CLERK Ot 157.0 07/03/2015 FARRIS, HILAH S TERMINAL CLERK Ot 196.9 07/03/2015 FARRIS, HILAH S TERMINAL CLERK Ot 285.9 07/03/2015 FARRIS, HILAH S TERMINAL CLERK Ot V58.69 07/08/2015 MESSI LAZO, ROBERT Ot 157.0 07/08/2015 MESSI LAZO, GUZMANDiamondKEVAN Ot 196.9 07/08/2015 MESSI LAZO, ROBERT Ot 285.9 07/08/2015 MESSI LAZO, ROBERT Ot V58.69 07/16/2015 HERLINDA, BOBAN N Ot 157.0 07/16/2015 HERLINDA, BOBAN N Ot 196.9 07/16/2015 HERLINDA, BOBAN N Ot 285.9 07/16/2015 HERLINDA, BOBAN N Ot V58.11 07/16/2015 HERLINDA, BOBAN N Ot V58.69 07/16/2015 FARRIS, HILAH S TERMINAL CLERK Ot 157.0 07/16/2015 FARRIS, HILAH S TERMINAL CLERK Ot 196.9 07/16/2015 KALEIGH MORENITA S TERMINAL CLERK Ot 285.9 07/16/2015 FARRIS, MORENITA S TERMINAL CLERK Ot V58.69 07/25/2015 FARRIS, HILAH S TERMINAL CLERK Ot 157.0 07/25/2015 FARRIS, HILAH S TERMINAL CLERK Ot 196.9 07/25/2015 FARRIS GERAAH S TERMINAL CLERK Ot 285.9 07/25/2015 FARRIS GERAAH S TERMINAL CLERK Ot V58.69 08/06/2015 HERLINDAMARILU BRAUNAN N Ot 157.0 08/06/2015 HERLINDA, BOBAN N Ot 196.9 08/06/2015 HERLINDA, BOBAN N Ot 285.9 08/06/2015 HERLINDAXIN BRAUN N Ot V58.11 08/06/2015 HERLINDAMARILU BRAUNAN N Ot V58.69 08/06/2015 KALEIGH MORENITA S TERMINAL CLERK Ot 157.0 08/06/2015 FARRIS, MORENITA S TERMINAL CLERK Ot 196.9 08/06/2015 KALEIGH MORENITA S TERMINAL CLERK Ot 285.9 08/06/2015 FARRIS, MORENITA S TERMINAL CLERK Ot V58.69 08/14/2015 MARILU PATEAN N Ot 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 PANCREAS HEAD 08/14/2015 HERLINDAXIN BRAUN N Ot 196.9 MAL LEX LYMPH NODE NOS 08/14/2015 HERLINDAXIN BRAUN N Ot 285.9 ANEMIA NOS 08/14/2015 XIN PATE N Ot V58.11 ENCOUNTER FOR ANTINEOPLASTIC CHEMOTHERAP 08/14/2015 XIN PATE N Ot V58.69 OT MED,LT,CURRENT USE 08/14/2015 MORENITA FARRIS S TERMINAL CLERK Ot 157.0 08/14/2015 FARRISMORENITA S TERMINAL CLERK Ot 196.9 08/14/2015 FARRISGERAAH S TERMINAL CLERK Ot 285.9 08/14/2015 FARRIS HILAH S TERMINAL CLERK Ot V58.69 08/19/2015 MARILU PATEAN N Ot 157.0 08/19/2015 HERLINDA BOBAN N Ot 196.9 08/19/2015 HERLINDA BOBAN N Ot 285.9 08/19/2015 HERLINDAXIN BRAUN N Ot V58.11 08/19/2015 HERLINDAXIN BRAUN N Ot V58.69 08/21/2015 MORENITA FARRIS S TERMINAL CLERK Ot 157.9 09/02/2015 FARRISMORENITA Mckeon S TERMINAL CLERK Ot 157.9 09/10/2015 XIN PATE N Ot 157.0 09/10/2015 HERLINDAXIN BRAUN N Ot 196.9 09/10/2015 HERLINDAXIN BRAUN N Ot 285.9 09/10/2015 HERLINDAXIN BRAUN N Ot V58.11 09/10/2015 XIN PATE N Ot V58.69 09/11/2015 MORENITA FARRIS S TERMINAL CLERK Ot C25.0 09/11/2015 FARRISMORENITA S TERMINAL CLERK Ot G56.91 09/11/2015 FARRISMORENITA S TERMINAL CLERK Ot Z79.899 09/17/2015 MORENITA FARRIS S TERMINAL CLERK Ot C25.0 09/17/2015 FARRISMORENITA S TERMINAL CLERK Ot G56.91 09/17/2015 FARRISMORENITA S TERMINAL CLERK Ot Z79.899 10/01/2015 XIN PATE N Ot 157.0 10/01/2015 HERLINDAXIN BRAUN N Ot 196.9 10/01/2015 HERLINDAXIN BRAUN N Ot 285.9 10/01/2015 XIN PATE N Ot V58.11 10/01/2015 XIN PATE N Ot V58.69 10/02/2015 MORENITA FARRIS S TERMINAL CLERK Ot C25.0 10/02/2015 FARRISMORENITA S TERMINAL CLERK Ot Z79.899 10/15/2015 FARRIS, MORENITA S TERMINAL CLERK Ot C25.0 10/15/2015 FARRIS, MORENITA S TERMINAL CLERK Ot Z79.899 10/23/2015 FARRIS, HILAH S TERMINAL CLERK Ot C25.0 10/23/2015 FARRIS, HILAH S TERMINAL CLERK Ot Z79.899 10/31/2015 FARRIS, HILAH S TERMINAL CLERK Ot C25.0 10/31/2015 FARRIS, GERAAH S TERMINAL CLERK Ot Z79.899 11/02/2015 HERLINDAXIN BRAUN N Ot [...] CHEMOTHERAP 11/18/2015 XIN PATE Ot Z79.899 OTHER LONG-TERM (CURRENT) DRUG THERAPY 12/05/2015 MORENITA FARRIS TERMINAL CLERK Ot C25.0 12/05/2015 KALEIGH MORENITA Mckeon TERMINAL CLERK Ot C77.9 12/05/2015 GERA FARRISLATA Mike TERMINAL CLERK Ot D70.1 12/05/2015 MORENITA FARRIS TERMINAL CLERK Ot T45.1X5A 12/05/2015 MORENITA FARRIS TERMINAL CLERK Ot Z79.899 12/12/2015 MORENITA FARRIS TERMINAL CLERK Ot C25.0 12/12/2015 MORENITA FARRIS TERMINAL CLERK Ot C77.9 12/12/2015 GERA FARRISLATA Mike TERMINAL CLERK Ot D70.1 12/12/2015 KALEIGH MORENITA Mckeon TERMINAL CLERK Ot T45.1X5A 12/12/2015 KALEIGH MORENITA Mckeon TERMINAL CLERK Ot Z79.899 12/13/2015 ZAYRA ELIZONDO MD Ot 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, UNSPECIF 12/13/2015 ZAYRA ELIZONDO MD Ot J90 PLEURAL EFFUSION, 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 12/13/2015 ZAYRA ELIZONDO MD Ot J98.11 ATELECTASIS 12/13/2015 ZAYRA ELIZONDO MD Ot Z79.899 OTHER LONG-TERM (CURRENT) DRUG THERAPY 12/15/2015 ZAYRA ELIZONDO MD Ot 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, UNSPECIF 12/15/2015 ZAYRA ELZIONDO MD Ot R20.0 ANESTHESIA OF SKIN 12/15/2015 ZAYRA ELIZONDO MD Ot R20.2 PARESTHESIA OF SKIN 12/15/2015 ZAYRA ELIZONDO MD Ot R51 HEADACHE 12/15/2015 ZAYRA ELIZONDO MD Ot Z79.899 OTHER LONG-TERM (CURRENT) DRUG THERAPY 12/17/2015 MORENITA FARRIS S TERMINAL CLERK Ot C25.0 12/26/2015 MORNEITA FARRIS S TERMINAL CLERK Ot C25.0 12/26/2015 MORENITA FARRIS S TERMINAL CLERK Ot C25.0 12/26/2015 MORENITA FARRIS S TERMINAL CLERK Ot C77.9 12/26/2015 MORENITA FARRIS S TERMINAL CLERK Ot I10 12/26/2015 MORENITA FARRIS S TERMINAL CLERK Ot Z79.899 01/02/2016 MORENITA FARRIS S TERMINAL CLERK Ot C25.0 01/02/2016 MORENITA FARRIS S TERMINAL CLERK Ot C77.9 01/02/2016 MORENITA FARRIS S TERMINAL CLERK Ot I10 01/02/2016 MORENITA FARRIS S TERMINAL CLERK Ot Z79.899 01/09/2016 XIN PATE Ot C25.0 01/09/2016 XIN PATE Ot C77.9 01/09/2016 XIN PATE Ot D64.9 01/09/2016 XIN PATE Ot Z51.11 01/09/2016 XIN PATE N Ot Z79.899 01/10/2016 YANETH LAZO, JENNIFER Hernandez Ot R31.9 01/16/2016 YANETH LAZO, JENNIFER Hernandez Ot R31.9 01/29/2016 MORENITA FARRIS S TERMINAL CLERK Ot C25.0 01/29/2016 MORENITA FARRIS S TERMINAL CLERK Ot C77.9 01/29/2016 MORENITA FARRIS S TERMINAL CLERK Ot I10 01/29/2016 MORENITA FARRIS S TERMINAL CLERK Ot R74.8 01/29/2016 MORENITA FARRIS S TERMINAL CLERK Ot Z79.899 01/29/2016 MORENITA FARRIS S TERMINAL CLERK Ot C25.0 02/03/2016 GERA FARRISAH S TERMINAL CLERK Ot C25.0 02/06/2016 BAIMA, ANCELMO L TERMINAL CLERK Ot I10 02/06/2016 BAIMA, ANCELMO L TERMINAL CLERK Ot I25.10 02/06/2016 BAIMA, ANCELMO L TERMINAL CLERK Ot I65.23 02/06/2016 BAIMA, ANCELMO L TERMINAL CLERK Ot I70.213 02/06/2016 BAIMA, ANCELMO L TERMINAL CLERK Ot R00.2 02/11/2016 HERLINDA, XIN N Ot C25.0 02/11/2016 HERLINDAXIN N Ot C77.9 02/11/2016 HERLINDAXIN BRAUN N Ot D64.9 02/11/2016 XIN PATE N Ot Z79.899 02/11/2016 BAIMA, ANCELMO L TERMINAL CLERK Ot I10 02/11/2016 BAIMA, ANCELMO L TERMINAL CLERK Ot I25.10 02/11/2016 BAIMA, ANCELMO L TERMINAL CLERK Ot I65.23 02/11/2016 BAIMA, ANCELMO L TERMINAL CLERK Ot I70.213 02/11/2016 BAIMA, ANCELMO L TERMINAL CLERK Ot R00.2 02/12/2016 BAIMA, ANCELMO L TERMINAL CLERK Ot I10 02/12/2016 BAIMA, ANCELMO L TERMINAL CLERK Ot I25.10 02/12/2016 BAIMA, ANCELMO L TERMINAL CLERK Ot I65.23 02/12/2016 BAIMA, ANCELMO L TERMINAL CLERK Ot I70.213 02/12/2016 BAIMA, ANCELMO L TERMINAL CLERK Ot R00.2 02/17/2016 XIN PATE Ot C25.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 02/17/2016 XIN PATE Ot 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 02/17/2016 XIN PATE N Ot D64.9 ANEMIA, UNSPECIFIED 02/17/2016 XIN PATE N Ot Z79.899 OTHER LONG-TERM (CURRENT) DRUG THERAPY 02/18/2016 XIN PATE N Ot C25.0 02/18/2016 XIN PATE N Ot C77.9 02/18/2016 XIN PATE N Ot D64.9 02/18/2016 XIN PATE N Ot Z79.899 02/18/2016 FARRISMORENITA Mckeon S TERMINAL CLERK Ot C25.0 02/18/2016 KALEIGHMORENITA S TERMINAL CLERK Ot C77.9 02/18/2016 KALEIGHMORENITA S TERMINAL CLERK Ot I10 02/18/2016 KALEIGHMORENITA S TERMINAL CLERK Ot R74.8 02/18/2016 FARRISMORENITA S TERMINAL CLERK Ot Z79.899 02/19/2016 ANCELMO MARION TERMINAL CLERK Ot I10 02/19/2016 ANCELMO MARION TERMINAL CLERK Ot I25.10 02/19/2016 ANCELMO MARION TERMINAL CLERK Ot I65.23 02/19/2016 ANCELMO MARION TERMINAL CLERK Ot I70.213 02/19/2016 ANCELMO MARION TERMINAL CLERK Ot R00.2 02/19/2016 XIN PATE N Ot C25.0 02/19/2016 XIN PATE N Ot C77.9 02/19/2016 XIN PATE N Ot D64.9 02/19/2016 XIN PATE N Ot Z79.899 02/20/2016 FARRISMORENITA Mckeon S TERMINAL CLERK Ot C25.0 02/26/2016 KALEIGHMORENITA S TERMINAL CLERK Ot C25.0 02/26/2016 KALEIGHMORENITA S TERMINAL CLERK Ot C77.9 02/26/2016 FARRISMORENITA Mckeon S TERMINAL CLERK Ot I10 02/26/2016 FARRISMORENITA S TERMINAL CLERK Ot R74.8 02/26/2016 KALEIGHMORENITA S TERMINAL CLERK Ot Z79.899 02/26/2016 FARRISMORENITA S TERMINAL CLERK Ot C25.0 02/26/2016 FARRISMORENITA S TERMINAL CLERK Ot C77.9 02/26/2016 FARRISMORENITA S TERMINAL CLERK Ot I10 02/26/2016 KALEIGH MORENITA S TERMINAL CLERK Ot R74.8 02/26/2016 KALEIGH MORENITA S TERMINAL CLERK Ot Z79.899 02/26/2016 KALEIGHMORENITA S TERMINAL CLERK Ot C25.0 03/04/2016 KALEIGH MORENITA S TERMINAL CLERK Ot C25.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 03/04/2016 KALEIGH MORENITA S TERMINAL CLERK Ot 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 03/04/2016 FARRISMORENITA Mckeon TERMINAL CLERK Ot I10 ESSENTIAL (PRIMARY) HYPERTENSION 03/04/2016 FARRISMORENITA MckeonP Ot R74.8 ABNORMAL LEVELS OF OTHER SERUM ENZYMES 03/04/2016 MORENITA FARRIS TERMINAL CLERK Ot Z79.899 OTHER LONG-TERM (CURRENT) DRUG THERAPY 04/02/2016 FARRISMORENITA Mckeon TERMINAL CLERK Ot C25.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 04/02/2016 FARRISMORENITA Mckeon TERMINAL CLERK Ot 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 04/02/2016 FARRISMORENITA Mckeon TERMINAL CLERK Ot D64.9 ANEMIA, UNSPECIFIED 04/02/2016 FARRISMORENITA Mckeon TERMINAL CLERK Ot I10 ESSENTIAL (PRIMARY) HYPERTENSION 04/02/2016 FARRISMORENITA MckeonP Ot Z79.899 OTHER POLICY ADVISER (CURRENT) DRUG THERAPY 04/06/2016 XIN PATE N Ot C25.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 04/06/2016 XIN PATE N Ot 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 04/06/2016 XIN PATE N Ot D64.9 ANEMIA, UNSPECIFIED 04/06/2016 HERLINDAXIN BRAUN N Ot Z51.11 ENCOUNTER FOR ANTINEOPLASTIC CHEMOTHERAP 04/06/2016 HERLINDAXIN BRAUN N Ot Z79.899 OTHER POLICY ADVISER (CURRENT) DRUG THERAPY 04/15/2016 XIN PATE N Ot C25.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 04/15/2016 XIN PATE N Ot 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 04/15/2016 XIN PATE N Ot D64.9 ANEMIA, UNSPECIFIED 04/15/2016 HERLINDAXIN BRAUN N Ot Z51.11 ENCOUNTER FOR ANTINEOPLASTIC CHEMOTHERAP 04/15/2016 XIN PATE N Ot Z79.899 OTHER POLICY ADVISER (CURRENT) DRUG THERAPY 04/23/2016 FARRISMORENITA Mckeon TERMINAL CLERK Ot C25.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 04/23/2016 KALEIGHMORENITA TERMINAL CLERK Ot 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 04/23/2016 KALEIGH MORENITA Mckeon TERMINAL CLERK Ot D64.9 ANEMIA, UNSPECIFIED 04/23/2016 MORENITA FARRIS TERMINAL CLERK Ot I10 ESSENTIAL (PRIMARY) HYPERTENSION 04/23/2016 MORENITA FARRIS TERMINAL CLERK Ot Z79.899 OTHER LONG-TERM (CURRENT) DRUG THERAPY 04/23/2016 MORENITA FARRIS TERMINAL CLERK Ot C25.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 04/24/2016 MORENITA FARRIS TERMINAL CLERK Ot C25.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 04/24/2016 FARRISMORENITA Mckeon TERMINAL CLERK Ot 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 04/24/2016 MORENITA FARRIS TERMINAL CLERK Ot D64.9 ANEMIA, UNSPECIFIED 04/24/2016 MORENITA FARRIS TERMINAL CLERK Ot I10 ESSENTIAL (PRIMARY) HYPERTENSION 04/24/2016 FARRISMORENITA Mckeon TERMINAL CLERK Ot Z79.899 OTHER LONG-TERM (CURRENT) DRUG THERAPY 05/12/2016 MORENITA FARRIS TERMINAL CLERK Ot C25.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 05/13/2016 MORENITA FARRIS TERMINAL CLERK Ot C25.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 05/13/2016 MORENITA FARRIS TERMINAL CLERK Ot 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 05/13/2016 MORENITA FARRIS TERMINAL CLERK Ot D64.9 ANEMIA, UNSPECIFIED 05/13/2016 MORENITA FARRIS TERMINAL CLERK Ot I10 ESSENTIAL (PRIMARY) HYPERTENSION 05/13/2016 MORENITA FARRIS TERMINAL CLERK Ot Z79.899 OTHER POLICY ADVISER (CURRENT) DRUG THERAPY 05/18/2016 XIN PATE N Ot C25.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 05/18/2016 XIN PATE Ot 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 05/18/2016 XIN PATE N Ot D64.9 ANEMIA, UNSPECIFIED 05/18/2016 XIN PATE N Ot Z51.11 ENCOUNTER FOR ANTINEOPLASTIC CHEMOTHERAP 05/18/2016 XIN PATE N Ot Z79.899 OTHER POLICY ADVISER (CURRENT) DRUG THERAPY 05/25/2016 XIN PATE N Ot C25.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 05/25/2016 XIN PATE N Ot 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 05/25/2016 XIN PATE N Ot D64.9 ANEMIA, UNSPECIFIED 05/25/2016 HERLINDAXIN BRAUN N Ot Z51.11 ENCOUNTER FOR ANTINEOPLASTIC CHEMOTHERAP 05/25/2016 HERLINDAXIN N Ot Z79.899 OTHER LONG-TERM (CURRENT) DRUG THERAPY 05/25/2016 MORENITA FARRISP Ot [...] Z51.11 ENCOUNTER FOR ANTINEOPLASTIC CHEMOTHERAP 06/26/2016 XIN PAET N Ot Z79.899 OTHER POLICY ADVISER (CURRENT) DRUG THERAPY 07/16/2016 Ot 998.59 07/16/2016 HERLINDAXIN N Ot C25.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 07/16/2016 HERLINDA BOBANGELICA N Ot 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 07/16/2016 HERLINDA BOBAN N Ot D64.9 ANEMIA, UNSPECIFIED 07/16/2016 HERLINDA BOBAN N Ot Z79.899 OTHER POLICY ADVISER (CURRENT) DRUG THERAPY 07/23/2016 HERLINDA BOBAN N Ot C25.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 07/23/2016 HERLINDA BOBAN N Ot 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 07/23/2016 XIN PATE Ot D64.9 ANEMIA, UNSPECIFIED 07/23/2016 XIN PATE N Ot Z79.899 OTHER POLICY ADVISER (CURRENT) DRUG THERAPY 08/21/2016 XIN PATE Ot C25.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 08/21/2016 XIN PATE N Ot 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 08/21/2016 XIN PATE N Ot D64.9 ANEMIA, UNSPECIFIED 08/21/2016 XIN PATE N Ot Z79.899 OTHER POLICY ADVISER (CURRENT) DRUG THERAPY 08/28/2016 XIN PATE Ot C25.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 08/28/2016 XIN PATE N Ot 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 08/28/2016 XIN PATE Ot D64.9 ANEMIA, UNSPECIFIED 08/28/2016 XIN PATE Ot Z23 ENCOUNTER FOR IMMUNIZATION 08/28/2016 XIN PATE Ot Z79.899 OTHER POLICY ADVISER (CURRENT) DRUG THERAPY 09/24/2016 Ot 401.9 HYPERTENSION NOS 09/24/2016 Ot 785.1 PALPITATIONS 09/24/2016 Ot V12.59 HX-CIRCULATORY SYST DIS,NEC 09/24/2016 Ot V15.82 HISTORY OF TOBACCO USE 09/24/2016 YANETH LAZO, JENNIFER Hernandez Ot V76.12 OTH SCREEN MAMMO-MALIGN NEOPLASM OF [place] 09/24/2016 YANETH LAZO, JENNIFER Hernandez Ot 272.4 HYPERLIPIDEMIA NEC/NOS 09/24/2016 JENNIFER WOLFE MD Ot 414.01 CORONARY ATHEROSCLEROSIS OF [place] CORON 09/24/2016 JENNIFER WOLFE MD Ot 786.50 [...] EXAM PRE-OPERATIVE NOS 09/24/2016 MORENITA FARRIS S TERMINAL CLERK Ot 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 PANCREAS HEAD 09/24/2016 FARRISMORENITA Mckeon S TERMINAL CLERK Ot 196.9 MAL LEX LYMPH NODE NOS 09/24/2016 MORENITA FARRIS S TERMINAL CLERK Ot V58.69 OTH MED,LT,CURRENT USE 09/24/2016 Ot 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 PANCREAS HEAD 09/24/2016 Ot 196.9 MAL LEX LYMPH NODE NOS 09/24/2016 Ot 285.9 ANEMIA NOS 09/24/2016 Ot 288.60 LEUKOCYTOSIS, UNSPECIFIED 09/24/2016 Ot 780.60 FEVER, UNSPECIFIED 09/24/2016 Ot 782.4 JAUNDICE NOS 09/24/2016 Ot V58.69 OTH MED,LT,CURRENT USE 09/24/2016 Ot 288.60 LEUKOCYTOSIS, UNSPECIFIED 09/24/2016 Ot 780.60 FEVER, UNSPECIFIED 09/24/2016 MORENITA FARRIS S TERMINAL CLERK Ot 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 PANCREAS HEAD 09/24/2016 MORENITA FARRIS S TERMINAL CLERK Ot 196.9 MAL LEX LYMPH NODE NOS 09/24/2016 FARRISMORENITA Mckeon S TERMINAL CLERK Ot 285.9 ANEMIA NOS 09/24/2016 MORENITA FARRIS S TERMINAL CLERK Ot V58.69 OTH MED,LT,CURRENT USE 09/24/2016 MORENITA FARRIS S TERMINAL CLERK Ot 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 PANCREAS HEAD 09/24/2016 FARRISMORENITA Mckeon S TERMINAL CLERK Ot 196.9 MAL LEX LYMPH NODE NOS 09/24/2016 MORENITA FARRIS S TERMINAL CLERK Ot 285.9 ANEMIA NOS 09/24/2016 MORENITA FARRIS S TERMINAL CLERK Ot V58.69 OTH MED,LT,CURRENT USE 09/24/2016 MORENITA FARRIS S TERMINAL CLERK Ot 157.9 MALIG LEX PANCREAS NOS 09/24/2016 MESSI LAZO, ROBERT Ot 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 PANCREAS HEAD 09/24/2016 MESSI LAZO, ROBERT Ot 196.9 MAL LEX LYMPH NODE NOS 09/24/2016 MESSI LAZO, ROBERT Ot 285.9 ANEMIA NOS 09/24/2016 MESSI LAZO, ROBERT Ot V58.69 OTH MED,LT,CURRENT USE 09/24/2016 MORENITA FARRIS TERMINAL CLERK Ot 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 PANCREAS HEAD 09/24/2016 MORENITA FARRIS TERMINAL CLERK Ot 196.9 MAL LEX LYMPH NODE NOS 09/24/2016 MORENITA FARRIS TERMINAL CLERK Ot 285.9 ANEMIA NOS 09/24/2016 MORENITA FARRIS TERMINAL CLERK Ot V58.69 OTH MED,LT,CURRENT USE 09/24/2016 MORENITA FARRIS TERMINAL CLERK Ot 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 PANCREAS HEAD 09/24/2016 MORENITA FARRIS TERMINAL CLERK Ot 196.9 MAL LEX LYMPH NODE NOS 09/24/2016 MORENITA FARRIS TERMINAL CLERK Ot 285.9 ANEMIA NOS 09/24/2016 MORENITA FARRISP Ot V58.69 OTH MED,LT,CURRENT USE 09/24/2016 MORENITA FARRIS TERMINAL CLERK Ot 157.9 MALIG LEX PANCREAS NOS 09/24/2016 MORENITA FARRIS TERMINAL CLERK Ot C25.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 09/24/2016 MORENITA FARRIS TERMINAL CLERK Ot 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 09/24/2016 MORENITA FARRIS TERMINAL CLERK Ot Z79.899 OTHER LONG-TERM (CURRENT) DRUG THERAPY 09/24/2016 MORENITA FARRIS TERMINAL CLERK Ot C25.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 09/24/2016 MORENITA FARRIS TERMINAL CLERK Ot Z79.899 OTHER POLICY ADVISER (CURRENT) DRUG THERAPY 09/24/2016 MORENITA FARRIS TERMINAL CLERK Ot C25.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 09/24/2016 MORENITA FARRIS TERMINAL CLERK Ot Z79.899 OTHER LONG-TERM (CURRENT) DRUG THERAPY 09/24/2016 MORENITA FARRIS TERMINAL CLERK Ot C25.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 09/24/2016 MORENITA FARRISP Ot 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 09/24/2016 OMRENITA FARRISP Ot 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 09/24/2016 MORENITA FARRISP Ot T45.1X5A ADVERSE EFFECT OF ANTINEOPLASTIC AND IMM 09/24/2016 MORENITA FARRIS TERMINAL CLERK Ot Z79.899 OTHER LONG-TERM (CURRENT) DRUG THERAPY 09/24/2016 MORENITA FARRIS TERMINAL CLERK Ot C25.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 09/24/2016 MORENITA FARRIS TERMINAL CLERK Ot C25.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 09/24/2016 MORENITA FARRIS TERMINAL CLERK Ot 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 09/24/2016 MORENITA FARRIS TERMINAL CLERK Ot I10 ESSENTIAL (PRIMARY) HYPERTENSION 09/24/2016 MORENITA FARRIS TERMINAL CLERK Ot Z79.899 OTHER POLICY ADVISER (CURRENT) DRUG THERAPY 09/24/2016 YANETH LAZO, JENNIFER Hernandez Ot R31.9 HEMATURIA, UNSPECIFIED 09/24/2016 LOREMARYCARMEN ANCELMO L TERMINAL CLERK Ot I10 ESSENTIAL (PRIMARY) HYPERTENSION 09/24/2016 LOREREENA CONROYHER L TERMINAL CLERK Ot I25.10 ATHSCL HEART DISEASE OF [place] CORONARY 09/24/2016 LOREREENA CONROYHER L TERMINAL CLERK Ot 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 09/24/2016 LOREMARYCARMEN ANCELMO L TERMINAL CLERK Ot I70.213 ATHSCL [place] ARTERIES OF [facility] 09/24/2016 LOREANCELMO CONROY L TERMINAL CLERK Ot R00.2 PALPITATIONS 09/24/2016 LOREMA ANCELMO L TERMINAL CLERK Ot I10 ESSENTIAL (PRIMARY) HYPERTENSION 09/24/2016 BAIREENA CONROYHER L TERMINAL CLERK Ot I25.10 ATHSCL HEART DISEASE OF [place] CORONARY 09/24/2016 BAIMAREENAANCELMO L TERMINAL CLERK Ot 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 09/24/2016 BAIMAREENAANCELMO L TERMINAL CLERK Ot I70.213 ATHSCL [place] [facility]ER[facility] OF [facility] 09/24/2016 LOREMAREENAANCELMO L TERMINAL CLERK Ot R00.2 PALPITATIONS 09/24/2016 MORENITA FARRIS TERMINAL CLERK Ot C25.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 09/24/2016 MORENITA FARRIS TERMINAL CLERK Ot 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 09/24/2016 MORENITA FARRIS TERMINAL CLERK Ot I10 ESSENTIAL (PRIMARY) HYPERTENSION 09/24/2016 MORENITA FARRIS TERMINAL CLERK Ot R74.8 ABNORMAL LEVELS OF OTHER SERUM ENZYMES 09/24/2016 MORENITA FARRIS TERMINAL CLERK Ot Z79.899 OTHER LONG-TERM (CURRENT) DRUG THERAPY 09/24/2016 MORENITA FARRIS TERMINAL CLERK Ot C25.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 09/24/2016 MORENITA FARRIS TERMINAL CLERK Ot C25.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 09/24/2016 MORENITA FARRIS TERMINAL CLERK Ot 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 09/24/2016 MORENITA FARRIS TERMINAL CLERK Ot I10 ESSENTIAL (PRIMARY) HYPERTENSION 09/24/2016 MORENITA FARRISP Ot R74.8 ABNORMAL LEVELS OF OTHER SERUM ENZYMES 09/24/2016 MORENITA FARRISP Ot Z79.899 OTHER LONG-TERM (CURRENT) DRUG THERAPY 09/24/2016 MORENITA FARRISP Ot C25.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 09/24/2016 MORENITA FARRISP Ot 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 09/24/2016 MORENITA FARRISP Ot D64.9 ANEMIA, UNSPECIFIED 09/24/2016 MORENITA FARRISP Ot I10 ESSENTIAL (PRIMARY) HYPERTENSION 09/24/2016 MORENITA FARRISP Ot Z79.899 OTHER POLICY ADVISER (CURRENT) DRUG THERAPY 09/24/2016 MORENITA FARRISP Ot C25.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 09/24/2016 MARILU PATEANGELICA Reeder Ot C25.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 09/24/2016 XIN PATE Ot 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 09/24/2016 XIN PATE Ot D64.9 ANEMIA, UNSPECIFIED 09/24/2016 XIN PATE Ot Z23 ENCOUNTER FOR IMMUNIZATION 09/24/2016 XIN PATE Ot Z79.899 OTHER LONG-TERM (CURRENT) DRUG THERAPY 09/24/2016 FARRISMORENITA Mckeon TERMINAL CLERK Ot C25.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 09/29/2016 HERLINDA MARILUANGELICA Reeder Ot C25.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 09/29/2016 XIN PATE Ot 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 09/29/2016 XIN PATE Ot D64.9 ANEMIA, UNSPECIFIED 09/29/2016 XIN PATE Ot Z23 ENCOUNTER FOR IMMUNIZATION 09/29/2016 XIN PATE Ot Z79.899 OTHER POLICY ADVISER (CURRENT) DRUG THERAPY 09/29/2016 Ot 401.9 HYPERTENSION NOS 09/29/2016 Ot 785.1 PALPITATIONS 09/29/2016 Ot V12.59 HX-CIRCULATORY SYST DIS,NEC 09/29/2016 Ot V15.82 HISTORY OF TOBACCO USE 09/29/2016 YANETH LAZO, JENNIFER Hernandez Ot V76.12 OTH SCREEN MAMMO-MALIGN NEOPLASM OF [place] 09/29/2016 YANETH LAZO, JENNIFER Hernandez Ot 272.4 HYPERLIPIDEMIA NEC/NOS 09/29/2016 YANETH LAZO, JENNIFER Hernandez Ot 414.01 CORONARY ATHEROSCLEROSIS OF [place] CORON 09/29/2016 YANETH LAZO, JENNIFER Hernandez Ot [...] V72.84 EXAM PRE-OPERATIVE NOS 09/29/2016 MORENITA FARRIS TERMINAL CLERK Ot 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 PANCREAS HEAD 09/29/2016 MORENITA FARRIS TERMINAL CLERK Ot 196.9 MAL LEX LYMPH NODE NOS 09/29/2016 MORENITA FARRIS TERMINAL CLERK Ot V58.69 OTH MED,LT,CURRENT USE 09/29/2016 Ot 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 PANCREAS HEAD 09/29/2016 Ot 196.9 MAL LEX LYMPH NODE NOS 09/29/2016 Ot 285.9 ANEMIA NOS 09/29/2016 Ot 288.60 LEUKOCYTOSIS, UNSPECIFIED 09/29/2016 Ot 780.60 FEVER, UNSPECIFIED 09/29/2016 Ot 782.4 JAUNDICE NOS 09/29/2016 Ot V58.69 OTH MED,LT,CURRENT USE 09/29/2016 Ot 288.60 LEUKOCYTOSIS, UNSPECIFIED 09/29/2016 Ot 780.60 FEVER, UNSPECIFIED 09/29/2016 FARRIS, HILAH S TERMINAL CLERK Ot 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 PANCREAS HEAD 09/29/2016 MORENITA FARRIS S TERMINAL CLERK Ot 196.9 MAL LEX LYMPH NODE NOS 09/29/2016 MORENITA FARRIS S TERMINAL CLERK Ot 285.9 ANEMIA NOS 09/29/2016 MORENITA FARRIS S TERMINAL CLERK Ot V58.69 OTH MED,LT,CURRENT USE 09/29/2016 MORENITA FARRIS TERMINAL CLERK Ot 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 PANCREAS HEAD 09/29/2016 MORENITA FARRIS S TERMINAL CLERK Ot 196.9 MAL LEX LYMPH NODE NOS 09/29/2016 MORENITA FARRIS S TERMINAL CLERK Ot 285.9 ANEMIA NOS 09/29/2016 MORENITA FARRIS S TERMINAL CLERK Ot V58.69 OTH MED,LT,CURRENT USE 09/29/2016 MORENITA FARRIS TERMINAL CLERK Ot 157.9 MALIG LEX PANCREAS NOS 09/29/2016 MESSI LAZO, ROBERT Ot 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 PANCREAS HEAD 09/29/2016 MESSI LAZO, ROBERT Ot 196.9 MAL LEX LYMPH NODE NOS 09/29/2016 MESSI LAZO, THOMAS-KEVAN Ot 285.9 ANEMIA NOS 09/29/2016 MESSI LAZO, THOMAS-KEVAN Ot V58.69 OTH MED,LT,CURRENT USE 09/29/2016 MORENITA FARRIS TERMINAL CLERK Ot 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 PANCREAS HEAD 09/29/2016 MORENITA FARRIS S TERMINAL CLERK Ot 196.9 MAL LEX LYMPH NODE NOS 09/29/2016 MORENITA FARRIS S TERMINAL CLERK Ot 285.9 ANEMIA NOS 09/29/2016 MORENITA FARRIS TERMINAL CLERK Ot V58.69 OTH MED,LT,CURRENT USE 09/29/2016 MORENITA FARRIS S TERMINAL CLERK Ot 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 PANCREAS HEAD 09/29/2016 MORENITA FARRIS S TERMINAL CLERK Ot 196.9 MAL LEX LYMPH NODE NOS 09/29/2016 MORENITA FARRIS S TERMINAL CLERK Ot 285.9 ANEMIA NOS 09/29/2016 MORENITA FARRIS S TERMINAL CLERK Ot V58.69 OTH MED,LT,CURRENT USE 09/29/2016 MORENITA FARRIS TERMINAL CLERK Ot 157.9 MALIG LEX PANCREAS NOS 09/29/2016 MORENITA FARRIS TERMINAL CLERK Ot C25.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 09/29/2016 MORENITA FARRIS TERMINAL CLERK Ot 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 09/29/2016 FARRISMORENITA Mckeon TERMINAL CLERK Ot Z79.899 OTHER LONG-TERM (CURRENT) DRUG THERAPY 09/29/2016 FARRISMORENITA Mckeon TERMINAL CLERK Ot C25.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 09/29/2016 FARRISMORENITA Mckeon TERMINAL CLERK Ot Z79.899 OTHER LONG-TERM (CURRENT) DRUG THERAPY 09/29/2016 FARRISMORENITA Mckeon TERMINAL CLERK Ot C25.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 09/29/2016 FARRISMORENITA Mckeon TERMINAL CLERK Ot Z79.899 OTHER POLICY ADVISER (CURRENT) DRUG THERAPY 09/29/2016 FARRISMORENITA Mckeon TERMINAL CLERK Ot C25.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 09/29/2016 FARRISMORENITA Mckeon TERMINAL CLERK Ot 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 09/29/2016 KALEIGH MORENITA Mckeon TERMINAL CLERK Ot 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 09/29/2016 KALEIGH MORENITA Mckeon TERMINAL CLERK Ot T45.1X5A ADVERSE EFFECT OF ANTINEOPLASTIC AND IMM 09/29/2016 FARRISMORENITA Mckeon TERMINAL CLERK Ot Z79.899 OTHER POLICY ADVISER (CURRENT) DRUG THERAPY 09/29/2016 FARRISMORENITA Mckeon TERMINAL CLERK Ot C25.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 09/29/2016 FARRISMORENITA Mckeon TERMINAL CLERK Ot C25.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 09/29/2016 KALEIGH MORENITA Mckeon TERMINAL CLERK Ot 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 09/29/2016 MORENITA FARRIS Mike TERMINAL CLERK Ot I10 ESSENTIAL (PRIMARY) HYPERTENSION 09/29/2016 GERA FARRISLATA Mckeon TERMINAL CLERK Ot Z79.899 OTHER POLICY ADVISER (CURRENT) DRUG THERAPY 09/29/2016 YANETH LAZO, JENNIFER Hernandez Ot R31.9 HEMATURIA, UNSPECIFIED 09/29/2016 ANCELMO MARION TERMINAL CLERK Ot I10 ESSENTIAL (PRIMARY) HYPERTENSION 09/29/2016 ANCELMO MARION TERMINAL CLERK Ot I25.10 ATHSCL HEART DISEASE OF [place] CORONARY 09/29/2016 ANCELMO MARION TERMINAL CLERK Ot 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 09/29/2016 ANCELMO MARION TERMINAL CLERK Ot I70.213 ATHSCL [place] ARTERIES OF EXTRM W INTRMT 09/29/2016 ANCELMO MARION TERMINAL CLERK Ot R00.2 PALPITATIONS 09/29/2016 ANCELMO MARION TERMINAL CLERK Ot I10 ESSENTIAL (PRIMARY) HYPERTENSION 09/29/2016 ANCELMO MARION TERMINAL CLERK Ot I25.10 ATHSCL HEART DISEASE OF [place] CORONARY 09/29/2016 ANCELMO MARION TERMINAL CLERK Ot 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 09/29/2016 ANCELMO MARION TERMINAL CLERK Ot I70.213 ATHSCL [place] ARTERIES OF EXTRM W INTRMT 09/29/2016 ANCELMO MARION TERMINAL CLERK Ot R00.2 PALPITATIONS 09/29/2016 MORENITA FARRIS TERMINAL CLERK Ot C25.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 09/29/2016 MORENITA FARRIS TERMINAL CLERK Ot 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 09/29/2016 MORENITA FARRIS TERMINAL CLERK Ot I10 ESSENTIAL (PRIMARY) HYPERTENSION 09/29/2016 MORENITA FARRIS TERMINAL CLERK Ot R74.8 ABNORMAL LEVELS OF OTHER SERUM ENZYMES 09/29/2016 MORENITA FARRIS TERMINAL CLERK Ot Z79.899 OTHER POLICY ADVISER (CURRENT) DRUG THERAPY 09/29/2016 MORENITA FARRIS TERMINAL CLERK Ot C25.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 09/29/2016 MORENITA FARRSI TERMINAL CLERK Ot C25.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 09/29/2016 MORENITA FARRISP Ot 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 09/29/2016 MORENITA FARRIS TERMINAL CLERK Ot I10 ESSENTIAL (PRIMARY) HYPERTENSION 09/29/2016 MORENITA FARRIS TERMINAL CLERK Ot R74.8 ABNORMAL LEVELS OF OTHER SERUM ENZYMES 09/29/2016 MORENITA FARRIS TERMINAL CLERK Ot Z79.899 OTHER LONG-TERM (CURRENT) DRUG THERAPY 09/29/2016 MORENITA FARRIS TERMINAL CLERK Ot C25.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 09/29/2016 MORENITA FARRIS TERMINAL CLERK Ot 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 09/29/2016 MORENITA FARRIS TERMINAL CLERK Ot D64.9 ANEMIA, UNSPECIFIED 09/29/2016 FARRISMORENITA Mckeon TERMINAL CLERK Ot I10 ESSENTIAL (PRIMARY) HYPERTENSION 09/29/2016 MORENITA FARRIS TERMINAL CLERK Ot Z79.899 OTHER POLICY ADVISER (CURRENT) DRUG THERAPY 09/29/2016 FARRISMORENITA Mckeon TERMINAL CLERK Ot C25.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 09/29/2016 HERLINDAXIN BRAUN N Ot C25.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 09/29/2016 HERLINDAXIN BRAUN N Ot 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899 OTHER POLICY ADVISER (CURRENT) DRUG THERAPY 10/15/2016 GERA FARRISLATA Mckeon TERMINAL CLERK Ot C25.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 10/22/2016 HERLINDAXIN N Ot C25.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 10/22/2016 HERLINDAXIN N Ot 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 10/22/2016 HERLINDAXIN N Ot D64.9 ANEMIA, UNSPECIFIED 10/22/2016 HERLINDA BOBAN N Ot Z23 ENCOUNTER FOR IMMUNIZATION 10/22/2016 HERLINDAMARILUAN N Ot Z79.899 OTHER POLICY ADVISER (CURRENT) DRUG THERAPY 10/22/2016 GERA FARRISLATA Mckeon TERMINAL CLERK Ot C25.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 11/25/2016 HERLINDA MARILUAN N Ot C25.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 11/25/2016 HERLINDA MARILUAN N Ot 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 11/25/2016 XIN PATE Ot D64.9 ANEMIA, UNSPECIFIED 11/25/2016 XIN PATE Ot Z23 ENCOUNTER FOR IMMUNIZATION 11/25/2016 XIN PATE Ot Z45.2 ENCOUNTER FOR ADJUSTMENT AND MANAGEMENT 11/25/2016 XIN PATE Ot Z79.899 OTHER LONG-TERM (CURRENT) DRUG THERAPY 11/26/2016 XIN PATE Ot C25.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 11/26/2016 XIN PATE Ot 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 11/26/2016 XIN PATE Ot D64.9 ANEMIA, UNSPECIFIED 11/26/2016 XIN PATE Ot Z23 ENCOUNTER FOR IMMUNIZATION 11/26/2016 XIN PATE Ot Z45.2 ENCOUNTER FOR ADJUSTMENT AND MANAGEMENT 11/26/2016 XIN PATE Ot Z79.899 OTHER POLICY ADVISER (CURRENT) DRUG THERAPY 12/17/2016 Ot 401.9 HYPERTENSION NOS 12/17/2016 Ot 785.1 PALPITATIONS 12/17/2016 Ot V12.59 HX-CIRCULATORY SYST DIS,NEC 12/17/2016 Ot V15.82 HISTORY OF TOBACCO USE 12/17/2016 YANETH LAZO, JENNIFER Hernandez Ot V76.12 OTH SCREEN MAMMO-MALIGN NEOPLASM OF [place] 12/17/2016 YANETH LAZO, JENNIFER Hernandez Ot 272.4 HYPERLIPIDEMIA NEC/NOS 12/17/2016 YANETH LAZO, JENNIFRE Hernandez Ot 414.01 CORONARY ATHEROSCLEROSIS OF [place] CORON 12/17/2016 YANETH LAZO, JENNIFER Hernandez Ot [...] Mckeon Ot V72.84 EXAM PRE-OPERATIVE NOS 12/17/2016 FARIRS, HILAH S TERMINAL CLERK Ot 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 PANCREAS HEAD 12/17/2016 MORENITA FARRIS S TERMINAL CLERK Ot 196.9 MAL LEX LYMPH NODE NOS 12/17/2016 MORENITA FARRIS S TERMINAL CLERK Ot V58.69 OTH MED,LT,CURRENT USE 12/17/2016 Ot 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 PANCREAS HEAD 12/17/2016 Ot 196.9 MAL LEX LYMPH NODE NOS 12/17/2016 Ot 285.9 ANEMIA NOS 12/17/2016 Ot 288.60 LEUKOCYTOSIS, UNSPECIFIED 12/17/2016 Ot 780.60 FEVER, UNSPECIFIED 12/17/2016 Ot 782.4 JAUNDICE NOS 12/17/2016 Ot V58.69 OTH MED,LT,CURRENT USE 12/17/2016 Ot 288.60 LEUKOCYTOSIS, UNSPECIFIED 12/17/2016 Ot 780.60 FEVER, UNSPECIFIED 12/17/2016 MORENITA FARRIS S TERMINAL CLERK Ot 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 PANCREAS HEAD 12/17/2016 MORENITA FARRIS S TERMINAL CLERK Ot 196.9 MAL LEX LYMPH NODE NOS 12/17/2016 MORENITA FARRIS S TERMINAL CLERK Ot 285.9 ANEMIA NOS 12/17/2016 MORENITA FARRIS S TERMINAL CLERK Ot V58.69 OTH MED,LT,CURRENT USE 12/17/2016 MORENITA FARRIS S TERMINAL CLERK Ot 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 PANCREAS HEAD 12/17/2016 MORENITA FARRIS S TERMINAL CLERK Ot 196.9 MAL LEX LYMPH NODE NOS 12/17/2016 MORENITA FARRIS S TERMINAL CLERK Ot 285.9 ANEMIA NOS 12/17/2016 MORENITA FARRIS S TERMINAL CLERK Ot V58.69 OTH MED,LT,CURRENT USE 12/17/2016 MORENITA FARRIS S TERMINAL CLERK Ot 157.9 MALIG LEX PANCREAS NOS 12/17/2016 ROBERT SWENSON MD Ot 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 PANCREAS HEAD 12/17/2016 ROBERT SWENSON MD Ot 196.9 MAL LEX LYMPH NODE NOS 12/17/2016 ROBERT SWENSON MD Ot 285.9 ANEMIA NOS 12/17/2016 ROBERT SWENSON MD Ot V58.69 OTH MED,LT,CURRENT USE 12/17/2016 MORENITA FARRIS S TERMINAL CLERK Ot 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 PANCREAS HEAD 12/17/2016 MORENITA FARRIS S TERMINAL CLERK Ot 196.9 MAL LEX LYMPH NODE NOS 12/17/2016 MORENITA FARRIS TERMINAL CLERK Ot 285.9 ANEMIA NOS 12/17/2016 MORENITA FARRISP Ot V58.69 OTH MED,LT,CURRENT USE 12/17/2016 MORENITA FARRIS TERMINAL CLERK Ot 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 PANCREAS HEAD 12/17/2016 MORENITA FARRIS TERMINAL CLERK Ot 196.9 MAL LEX LYMPH NODE NOS 12/17/2016 MORENITA FARRISP Ot 285.9 ANEMIA NOS 12/17/2016 MORENITA FARRISP Ot V58.69 OTH MED,LT,CURRENT USE 12/17/2016 MORENITA FARRIS TERMINAL CLERK Ot 157.9 MALIG LEX PANCREAS NOS 12/17/2016 MORENITA FARRIS TERMINAL CLERK Ot C25.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 12/17/2016 MORENITA FARRISP Ot 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 12/17/2016 MORENITA FARRIS TERMINAL CLERK Ot Z79.899 OTHER LONG-TERM (CURRENT) DRUG THERAPY 12/17/2016 MORENITA FARRISP Ot C25.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 12/17/2016 MORENITA FARRIS TERMINAL CLERK Ot Z79.899 OTHER LONG-TERM (CURRENT) DRUG THERAPY 12/17/2016 MORENITA FARRIS TERMINAL CLERK Ot C25.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 12/17/2016 MORENITA FARRIS TERMINAL CLERK Ot Z79.899 OTHER POLICY ADVISER (CURRENT) DRUG THERAPY 12/17/2016 MORENITA FARRIS TERMINAL CLERK Ot C25.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 12/17/2016 MORENITA FARRIS TERMINAL CLERK Ot 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 12/17/2016 MORENITA FARRISP Ot 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 12/17/2016 MORENITA FARRISP Ot T45.1X5A ADVERSE EFFECT OF ANTINEOPLASTIC AND IMM 12/17/2016 MORENITA FARRIS TERMINAL CLERK Ot Z79.899 OTHER POLICY ADVISER (CURRENT) DRUG THERAPY 12/17/2016 MORENITA FARRIS TERMINAL CLERK Ot C25.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 12/17/2016 FARRIS, HILAH S TERMINAL CLERK Ot C25.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 12/17/2016 MORENITA FARRISP Ot 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 12/17/2016 MORENITA FARRIS TERMINAL CLERK Ot I10 ESSENTIAL (PRIMARY) HYPERTENSION 12/17/2016 MORENITA FARRISP Ot Z79.899 OTHER LONG-TERM (CURRENT) DRUG THERAPY 12/17/2016 YANETH LAZO, JENNIFER Hernandez Ot R31.9 HEMATURIA, UNSPECIFIED 12/17/2016 LOREANCELMO CONROY L TERMINAL CLERK Ot I10 ESSENTIAL (PRIMARY) HYPERTENSION 12/17/2016 BAIANCELMO CONROY L TERMINAL CLERK Ot I25.10 ATHSCL HEART DISEASE OF [place] CORONARY 12/17/2016 BAIREENA CONROYHER L TERMINAL CLERK Ot 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 12/17/2016 REENA MARIONHER L TERMINAL CLERK Ot I70.213 ATHSCL [place] ARTERIES OF [facility] 12/17/2016 LOREANCELMO CONROY L TERMINAL CLERK Ot R00.2 PALPITATIONS 12/17/2016 DONI ANCELMO L TERMINAL CLERK Ot I10 ESSENTIAL (PRIMARY) HYPERTENSION 12/17/2016 ANCELMO MARION L TERMINAL CLERK Ot I25.10 ATHSCL HEART DISEASE OF [place] CORONARY 12/17/2016 BAIANCELMO CONROY L TERMINAL CLERK Ot 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 12/17/2016 BAIMAREENAANCELMO L TERMINAL CLERK Ot I70.213 ATHSCL [place] ARTERIES OF [facility] 12/17/2016 LOREANCELMO CONROY L TERMINAL CLERK Ot R00.2 PALPITATIONS 12/17/2016 MORENITA FARRIS TERMINAL CLERK Ot C25.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 12/17/2016 MORENITA FARRIS TERMINAL CLERK Ot 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 12/17/2016 MORENITA FARRIS TERMINAL CLERK Ot I10 ESSENTIAL (PRIMARY) HYPERTENSION 12/17/2016 MORENITA FARRISP Ot R74.8 ABNORMAL LEVELS OF OTHER SERUM ENZYMES 12/17/2016 MORENITA FARRISP Ot Z79.899 OTHER POLICY ADVISER (CURRENT) DRUG THERAPY 12/17/2016 MORENITA FARRIS TERMINAL CLERK Ot C25.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 12/17/2016 MORENITA FARRISP Ot C25.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 12/17/2016 MORENITA FARRISP Ot 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 12/17/2016 MORENITA FARRIS TERMINAL CLERK Ot I10 ESSENTIAL (PRIMARY) HYPERTENSION 12/17/2016 MORENITA FARRISP Ot R74.8 ABNORMAL LEVELS OF OTHER SERUM ENZYMES 12/17/2016 MORENITA FARRISP Ot Z79.899 OTHER POLICY ADVISER (CURRENT) DRUG THERAPY 12/17/2016 MORENITA FARRIS TERMINAL CLERK Ot C25.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 12/17/2016 MORENITA FARRISP Ot 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 12/17/2016 MORENITA FARRISP Ot D64.9 ANEMIA, UNSPECIFIED 12/17/2016 MORENITA FARRISP Ot I10 ESSENTIAL (PRIMARY) HYPERTENSION 12/17/2016 MORENITA FARRISP Ot Z79.899 OTHER LONG-TERM (CURRENT) DRUG THERAPY 12/17/2016 MORENITA FARRISP Ot C25.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 12/17/2016 MORENITA FARRIS TERMINAL CLERK Ot C25.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 12/17/2016 XIN PATE Lilli Ot C25.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 12/17/2016 HERLINDAXIN Ot 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 12/17/2016 XIN PATE Ot D64.9 ANEMIA, UNSPECIFIED 12/17/2016 XIN PATE Ot Z23 ENCOUNTER FOR IMMUNIZATION 12/17/2016 XIN PATE Ot Z79.899 OTHER POLICY ADVISER (CURRENT) DRUG THERAPY 12/17/2016 Ot 401.9 HYPERTENSION NOS 12/17/2016 Ot 785.1 PALPITATIONS 12/17/2016 Ot V12.59 HX-CIRCULATORY SYST DIS,NEC 12/17/2016 Ot V15.82 HISTORY OF TOBACCO USE 12/17/2016 YANETH LAZO, JENNIFER Hernandez Ot V76.12 OTH SCREEN MAMMO-MALIGN NEOPLASM OF [place] 12/17/2016 YANETH LAZO, JENNIFER Hernandez Ot 272.4 HYPERLIPIDEMIA NEC/NOS 12/17/2016 JENNIFER WOLFE MD Ot 414.01 CORONARY ATHEROSCLEROSIS OF [place] CORON 12/17/2016 YANETH LAZO, JENNIFER Hernandez Ot [...] V72.84 EXAM PRE-OPERATIVE NOS 12/17/2016 FARRISGERAAH S TERMINAL CLERK Ot 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 PANCREAS HEAD 12/17/2016 FARRIS HILAH S TERMINAL CLERK Ot 196.9 MAL LEX LYMPH NODE NOS 12/17/2016 FARRIS, HILAH S TERMINAL CLERK Ot V58.69 OTH MED,LT,CURRENT USE 12/17/2016 Ot 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 PANCREAS HEAD 12/17/2016 Ot 196.9 MAL LEX LYMPH NODE NOS 12/17/2016 Ot 285.9 ANEMIA NOS 12/17/2016 Ot 288.60 LEUKOCYTOSIS, UNSPECIFIED 12/17/2016 Ot 780.60 FEVER, UNSPECIFIED 12/17/2016 Ot 782.4 JAUNDICE NOS 12/17/2016 Ot V58.69 OTH MED,LT,CURRENT USE 12/17/2016 Ot 288.60 LEUKOCYTOSIS, UNSPECIFIED 12/17/2016 Ot 780.60 FEVER, UNSPECIFIED 12/17/2016 FARRISGERAAH S TERMINAL CLERK Ot 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 PANCREAS HEAD 12/17/2016 FARRIS HILAH S TERMINAL CLERK Ot 196.9 MAL LEX LYMPH NODE NOS 12/17/2016 FARRIS HILAH S TERMINAL CLERK Ot 285.9 ANEMIA NOS 12/17/2016 FARRISGERAAH S TERMINAL CLERK Ot V58.69 OTH MED,LT,CURRENT USE 12/17/2016 FARRIS HILAH S TERMINAL CLERK Ot 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 PANCREAS HEAD 12/17/2016 FARRIS HILAH S TERMINAL CLERK Ot 196.9 MAL LEX LYMPH NODE NOS 12/17/2016 FARRIS HILAH S TERMINAL CLERK Ot 285.9 ANEMIA NOS 12/17/2016 MORENITA FARRIS TERMINAL CLERK Ot V58.69 OTH MED,LT,CURRENT USE 12/17/2016 MORENITA FARRIS S TERMINAL CLERK Ot 157.9 MALIG LEX PANCREAS NOS 12/17/2016 MESSI LAZO, THOMAS-KEVAN Ot 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 PANCREAS HEAD 12/17/2016 MESSI LAZO, THOMAS-KEVAN Ot 196.9 MAL LEX LYMPH NODE NOS 12/17/2016 MESSI LAZO, ROBERT Ot 285.9 ANEMIA NOS 12/17/2016 MESSI LAZO, ROBERT Ot V58.69 OTH MED,LT,CURRENT USE 12/17/2016 MORENITA FARRIS S TERMINAL CLERK Ot 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 PANCREAS HEAD 12/17/2016 MORENITA FARRIS S TERMINAL CLERK Ot 196.9 MAL LEX LYMPH NODE NOS 12/17/2016 MORENITA FARRIS S TERMINAL CLERK Ot 285.9 ANEMIA NOS 12/17/2016 MORENITA FARRIS S TERMINAL CLERK Ot V58.69 OTH MED,LT,CURRENT USE 12/17/2016 MORENITA FARRIS TERMINAL CLERK Ot 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 PANCREAS HEAD 12/17/2016 MORENITA FARRIS S TERMINAL CLERK Ot 196.9 MAL LEX LYMPH NODE NOS 12/17/2016 MORENITA FARRIS S TERMINAL CLERK Ot 285.9 ANEMIA NOS 12/17/2016 MORENITA FARRIS S TERMINAL CLERK Ot V58.69 OTH MED,LT,CURRENT USE 12/17/2016 MORENITA FARRIS S TERMINAL CLERK Ot 157.9 MALIG LEX PANCREAS NOS 12/17/2016 MORENITA FARRIS TERMINAL CLERK Ot C25.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 12/17/2016 MORENITA FARRIS TERMINAL CLERK Ot 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 12/17/2016 MORENITA FARRIS TERMINAL CLERK Ot Z79.899 OTHER LONG-TERM (CURRENT) DRUG THERAPY 12/17/2016 MORENITA FARRIS S TERMINAL CLERK Ot C25.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 12/17/2016 MORENITA FARRIS S TERMINAL CLERK Ot Z79.899 OTHER POLICY ADVISER (CURRENT) DRUG THERAPY 12/17/2016 MORENITA FARRIS TERMINAL CLERK Ot C25.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 12/17/2016 MORENITA FARRIS TERMINAL CLERK Ot Z79.899 OTHER LONG-TERM (CURRENT) DRUG THERAPY 12/17/2016 MORENITA FARRIS TERMINAL CLERK Ot C25.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 12/17/2016 MORENITA FARRISP Ot 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 12/17/2016 MORENITA FARRISP Ot 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 12/17/2016 MORENITA FARRISP Ot T45.1X5A ADVERSE EFFECT OF ANTINEOPLASTIC AND IMM 12/17/2016 MORENITA FARRIS TERMINAL CLERK Ot Z79.899 OTHER LONG-TERM (CURRENT) DRUG THERAPY 12/17/2016 MORENITA FARRIS TERMINAL CLERK Ot C25.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 12/17/2016 MORENITA FARRISP Ot C25.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 12/17/2016 MORENITA FARRISP Ot 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 12/17/2016 MORENITA FARRIS TERMINAL CLERK Ot I10 ESSENTIAL (PRIMARY) HYPERTENSION 12/17/2016 MORENITA FARRIS TERMINAL CLERK Ot Z79.899 OTHER POLICY ADVISER (CURRENT) DRUG THERAPY 12/17/2016 YANETH LAZO, JENNIFER Hernandez Ot R31.9 HEMATURIA, UNSPECIFIED 12/17/2016 ANCELMO MARION L TERMINAL CLERK Ot I10 ESSENTIAL (PRIMARY) HYPERTENSION 12/17/2016 ANCELMO MARION TERMINAL CLERK Ot I25.10 ATHSCL HEART DISEASE OF [place] CORONARY 12/17/2016 ANCELMO MARION TERMINAL CLERK Ot 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 12/17/2016 ANCELMO MARION L TERMINAL CLERK Ot I70.213 ATHSCL [place] ARTERIES OF [facility] 12/17/2016 ANCELMO MARION L TERMINAL CLERK Ot R00.2 PALPITATIONS 12/17/2016 ANCELMO MARION L TERMINAL CLERK Ot I10 ESSENTIAL (PRIMARY) HYPERTENSION 12/17/2016 ANCELMO MARION L TERMINAL CLERK Ot I25.10 ATHSCL HEART DISEASE OF [place] CORONARY 12/17/2016 ANCELMO MARION L TERMINAL CLERK Ot 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 12/17/2016 ANCELMO MARION L TERMINAL CLERK Ot I70.213 ATHSCL [place] ARTERIES OF EXTRM W INTRMT 12/17/2016 ANCELMO MARION TERMINAL CLERK Ot R00.2 PALPITATIONS 12/17/2016 MORENITA FARRIS TERMINAL CLERK Ot C25.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 12/17/2016 MORENITA FARRIS TERMINAL CLERK Ot 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 12/17/2016 MORENITA FARRIS TERMINAL CLERK Ot I10 ESSENTIAL (PRIMARY) HYPERTENSION 12/17/2016 MORENITA FARRIS TERMINAL CLERK Ot R74.8 ABNORMAL LEVELS OF OTHER SERUM ENZYMES 12/17/2016 MORENITA FARRIS S TERMINAL CLERK Ot Z79.899 OTHER POLICY ADVISER (CURRENT) DRUG THERAPY 12/17/2016 MORENITA FARRIS TERMINAL CLERK Ot C25.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 12/17/2016 MORENITA FARRIS TERMINAL CLERK Ot C25.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 12/17/2016 MORENITA FARRIS TERMINAL CLERK Ot 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 12/17/2016 MORENITA FARRIS TERMINAL CLERK Ot I10 ESSENTIAL (PRIMARY) HYPERTENSION 12/17/2016 MORENITA FARRIS TERMINAL CLERK Ot R74.8 ABNORMAL LEVELS OF OTHER SERUM ENZYMES 12/17/2016 MORENITA FARRIS TERMINAL CLERK Ot Z79.899 OTHER LONG-TERM (CURRENT) DRUG THERAPY 12/17/2016 MORENITA FARRIS TERMINAL CLERK Ot C25.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 12/17/2016 MORENITA FARRIS TERMINAL CLERK Ot 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9 ANEMIA, UNSPECIFIED 12/17/2016 XIN PATE Lilli Ot Z23 ENCOUNTER FOR IMMUNIZATION 12/17/2016 XIN PATE Lilli Ot Z79.899 OTHER LONG-TERM (CURRENT) DRUG THERAPY 12/18/2016 MORENITA FARRIS S TERMINAL CLERK Ot C25.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 12/18/2016 FARRISMORENITA S TERMINAL CLERK Ot R22.2 LOCALIZED SWELLING, MASS AND LUMP, TRUNK 12/18/2016 FARRISMORENITA S TERMINAL CLERK Ot R59.0 LOCALIZED ENLARGED LYMPH NODES 12/18/2016 FARRISMORENITA S TERMINAL CLERK Ot R91.8 OTHER NONSPECIFIC ABNORMAL FINDING OF VIKKI 12/18/2016 XIN PATE N Ot C25.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 12/18/2016 XIN PATE Lilli Ot 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 12/18/2016 XIN PATE Lilli Ot D64.9 ANEMIA, UNSPECIFIED 12/18/2016 XIN PATE Lilli Ot Z79.899 OTHER LONG-TERM (CURRENT) DRUG THERAPY 12/18/2016 FARRISMORENITA S TERMINAL CLERK Ot C25.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 12/18/2016 FARRISMORENITA S TERMINAL CLERK Ot R22.2 LOCALIZED SWELLING, MASS AND LUMP, TRUNK 12/18/2016 FARRISMORENITA S TERMINAL CLERK Ot R59.0 LOCALIZED ENLARGED LYMPH NODES 12/18/2016 FARRISMORENITA S TERMINAL CLERK Ot R91.8 OTHER NONSPECIFIC ABNORMAL FINDING OF [place]KK[place] 12/30/2016 XIN PATE N Ot C25.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 12/30/2016 XIN PATE Lilli Ot 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 12/30/2016 XIN PATE N Ot D64.9 ANEMIA, UNSPECIFIED 12/30/2016 XIN PATE Lilli Ot Z79.899 OTHER POLICY ADVISER (CURRENT) DRUG THERAPY 01/07/2017 FARRISMORENITA S TERMINAL CLERK Ot C25.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 01/07/2017 FARRIS MORENITA S TERMINAL CLERK Ot R22.2 LOCALIZED SWELLING, MASS AND LUMP, TRUNK 01/07/2017 FARRIS MORENITA S TERMINAL CLERK Ot R59.0 LOCALIZED ENLARGED LYMPH NODES 01/07/2017 MORENITA FARRIS TERMINAL CLERK Ot R91.8 OTHER NONSPECIFIC ABNORMAL FINDING OF VIKKI 01/14/2017 MORENITA FARRIS TERMINAL CLERK Ot C25.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 01/14/2017 MORENITA FARRIS TERMINAL CLERK Ot R22.2 LOCALIZED SWELLING, MASS AND LUMP, TRUNK 01/14/2017 MORENITA FARRIS TERMINAL CLERK Ot R59.0 LOCALIZED ENLARGED LYMPH NODES 01/14/2017 MORENITA FARRIS TERMINAL CLERK Ot R91.8 OTHER NONSPECIFIC ABNORMAL FINDING OF VIKKI 01/21/2017 XIN PATE Lilli Ot C25.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 01/21/2017 HERLINDAXIN Ot 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 01/21/2017 HERLINDAXIN Ot D64.9 ANEMIA, UNSPECIFIED 01/21/2017 XIN PATE Ot Z79.899 OTHER LONG-TERM (CURRENT) DRUG THERAPY 01/23/2017 RONEL MARES GLAZE WIPER Ot 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, UNSPECIF 01/23/2017 RONEL MARES APRN Ot I10 ESSENTIAL (PRIMARY) HYPERTENSION 01/23/2017 RONEL MARES APRN Ot M47.814 SPONDYLOSIS W/O MYELOPATHY OR RADICULOPA 01/23/2017 RONEL MARES GLAZE WIPER Ot M47.816 SPONDYLOSIS W/O MYELOPATHY OR RADICULOPA 01/23/2017 RONEL MARES APRN Ot M54.6 PAIN IN THORACIC SPINE 01/23/2017 RONEL MARES GLAZE WIPER Ot Z79.899 OTHER POLICY ADVISER (CURRENT) DRUG THERAPY 01/25/2017 RONEL MARES APRN Ot 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, UNSPECIF 01/25/2017 RONEL MARES GLAZE WIPER Ot I10 ESSENTIAL (PRIMARY) HYPERTENSION 01/25/2017 RONEL MARES APRN Ot M47.814 SPONDYLOSIS W/O MYELOPATHY OR RADICULOPA 01/25/2017 RONEL MARES GLAZE WIPER Ot M47.816 SPONDYLOSIS W/O MYELOPATHY OR RADICULOPA 01/25/2017 RONEL MARES GLAZE WIPER Ot M54.6 PAIN IN THORACIC SPINE 01/25/2017 RONEL MARES APRN Ot Z79.899 OTHER LONG-TERM (CURRENT) DRUG THERAPY Procedures Code Description Performed [...] Status Pt. Type Provider Facility Loc./Unit Complaint [id number] 01/23/2017 15:31:00 2016 18:42:00 DIS Emergency RONEL MARES APRN [facility] ER BACK PAIN [id number] 11/05/2016 13:19:00 2016 00:01:00 DIS Outpatient XIN PATE Lilli [facility] ONC [id number] 07/14/2016 14:37:00 2015 11:10:00 DIS Outpatient XIN PATE Lilli [facility] ONC [id number] 05/29/2016 19:32:00 2015 00:59:00 DIS Emergency DINAH MELISSA [facility] ER PALENESS/ABD SIDE PAIN [id number] 04/27/2016 12:55:00 2015 00:01:00 DIS Outpatient HERLINDAXIN Lilli [facility] ONC [id number] 02/06/2016 09:00:00 2015 00:01:00 DIS Outpatient XIN PATE Lilli [facility] ONC [id number] 12/15/2015 09:04:00 2015 12:20:00 DIS Emergency ZAYRA ELIZONDO MD [facility] ER L SIDE NUMBNESS [id number] 11/12/2015 13:50:00 2015 00:01:00 DIS Outpatient HERLINDAXIN Lilli [facility] ONC [id number] 10/01/2015 13:14:00 2014 23:59:59 CLS Outpatient MORENITA FARRIS TERMINAL CLERK [facility] ONC [id number] 09/10/2015 13:18:00 2014 23:59:59 CLS Outpatient MORENITA FARRIS TERMINAL CLERK [facility] ONC [id number] 08/20/2015 13:54:00 2014 23:59:59 CLS Outpatient MORENITA FARRIS TERMINAL CLERK [facility] ONC [id number] 08/06/2015 13:20:00 2014 00:01:00 DIS Outpatient XIN PATE Lilli [facility] ONC [id number] 07/29/2015 09:10:00 2014 23:59:59 CLS Outpatient FARRIS HILAH S TERMINAL CLERK [facility] RAD PANCREATIC CANCER [id number] 07/16/2015 13:13:00 2014 23:59:59 CLS Outpatient FARRIS HILAH S TERMINAL CLERK [facility] ONC [id number] 06/25/2015 10:33:00 2014 23:59:59 CLS Outpatient FARRIS HILAH S TERMINAL CLERK [facility] ONC [id number] 06/11/2015 13:45:00 2014 00:01:00 DIS Outpatient HERLINDA XIN Reeder [facility] ONC [id number] 05/28/2015 14:00:00 2014 23:59:59 CLS Outpatient MESSI LAZO, ROBERT [facility] ONC [id number] 05/01/2015 09:20:00 2014 23:59:59 CLS Outpatient FARRIS HILAH S TERMINAL CLERK [facility] RAD PANCREATIC CANCER [id number] 04/16/2015 13:44:00 2014 23:59:59 CLS Outpatient FARRIS HILAH S TERMINAL CLERK [facility] ONC [id number] 02/19/2015 13:57:00 2014 23:59:59 CLS Outpatient FARRIS HILAH S TERMINAL CLERK [facility] ONC [id number] 01/01/2015 13:54:00 2014 23:59:59 CLS Outpatient HERLINDA MARILUANGELICA Lilli [facility] ONC [id number] 12/28/2014 05:53:00 2014 09:01:00 DIS Emergency MIKHAIL LAZO, ZAYRA Crowley [facility] ER HEART PALPITATIONS [id number] 12/25/2014 14:03:00 2014 23:59:59 CLS Outpatient FARRIS, HILAH S TERMINAL CLERK [facility] ONC [id number] 12/21/2014 06:04:00 2014 10:31:00 DIS Outpatient INGRID COOPER MD [facility] SDC PANCREATIC CANCER [id number] 12/19/2014 11:07:00 2014 23:59:59 CLS Outpatient INGRID COOPER MD [facility] PREOP PANCREATIC CANCER [id number] 12/12/2014 08:38:00 2014 16:20:00 DIS Outpatient JENNIFER WOLFE MD [facility] RAD PANCREATIC MASS [id number] 12/04/2014 12:21:00 2014 23:59:59 CLS Outpatient JENNIFER WOLFE MD [facility] RAD ABDOMINAL MASS [id number] 11/30/2014 14:45:00 2014 23:59:59 CLS Outpatient JENNIFER WOLFE MD [facility] RAD PANCREATIC MASS [id number] 11/30/2014 08:02:00 2014 23:59:59 CLS Outpatient JENNIFER WOLFE MD [facility] RAD PANCREATIC MASS [id number] 11/27/2014 08:49:00 2014 23:59:59 CLS Outpatient JENNIFER WOLFE MD [facility] CARD CHEST ABDOMINAL PAIN [id number] 10/04/2014 09:57:00 2013 17:50:00 DIS Outpatient INGRID COOPER MD [facility] CATH ASOD,LEG PAIN [id number] 06/05/2014 10:17:00 2013 23:59:59 CLS Outpatient JENNIFER WOLFE MD [facility] RAD SCREENING [id number] 02/04/2017 19:29:00 Document Registration [id number] 01/14/2017 13:26:00 ACT Outpatient XIN PATE [facility] ONC [id number] 12/17/2016 10:15:00 ACT Outpatient MORENITA FARRIS [facility] RAD PANCREATIC CANCER, LUNG NODULE [id number] 09/24/2016 10:07:00 ACT Outpatient MORENITA FARRIS TERMINAL CLERK [facility] RAD PANCREATIC CANCER [id number] 07/14/2016 07:39:00 PEN Preadmit MORENITA FARRIS TERMINAL CLERK [facility] ONC [id number] 04/22/2016 10:25:00 ACT Outpatient MORENITA FARRIS S TERMINAL CLERK [facility] RAD PANCREATIC CANCER [id number] 03/17/2016 10:59:00 ACT Outpatient MORENITA FARRIS S TERMINAL CLERK [facility] ONC [id number] 02/06/2016 08:57:00 ACT Outpatient MORENITA FARRIS S TERMINAL CLERK [facility] ONC [id number] 01/31/2016 09:37:00 ACT Outpatient MORENITA FARRIS S TERMINAL CLERK [facility] RAD PANCREATIC CANCER [id number] 01/28/2016 10:39:00 ACT Outpatient MORENITA FARRIS TERMINAL CLERK [facility] ONC [id number] 01/21/2016 12:15:00 ACT Outpatient BAIANCELMO CONROY L TERMINAL CLERK [facility] CARD PALPITATIONS,CAD,HTN,PAD [id number] 01/16/2016 07:45:00 ACT Outpatient BAIMARYCARMEN ANCELMO L TERMINAL CLERK [facility] CARD PALPITATIONS,CAD,PAD,HTN [id number] 12/16/2015 15:44:00 ACT Outpatient YANETH LAZO, JENNIFER Hernandez [facility] RAD HEMATURIA [id number] 12/13/2015 12:18:00 ACT Emergency MIKHAIL LAZO, ZAYRA Crowley [facility] ER SOA [id number] 12/05/2015 16:39:00 ACT Outpatient MORENITA FARRIS TERMINAL CLERK [facility] ONC [id number] 11/27/2015 08:34:00 ACT Outpatient MORENITA FARRIS S TERMINAL CLERK [facility] RAD PANCREATIC CANCER [id number] 11/12/2015 13:52:00 ACT Outpatient MORENITA FARRIS TERMINAL CLERK [facility] ONC [id number] 02/05/2015 09:19:00 Document Registration [id number] 02/01/2015 10:17:00 Document Registration [id number] 11/27/2014 08:49:00 Document Registration [id number] 11/27/2014 08:49:00 Document Registration [id number] 11/27/2014 08:49:00 Document Registration [id number] 11/27/2014 08:48:00 Document Registration [id number] 08/26/2012 10:27:00 Document Registration [id number] 11/19/2011 11:20:00 Document Registration [id number] 10/28/2011 19:50:00 Document Registration [id number] 03/04/2011 10:10:00 Document Registration [id number] 03/02/2011 14:10:00 Document Registration [id number] 02/17/2011 19:16:00 Document Registration [id number] 11/27/2010 13:05:00 Document Registration [id number] 01/15/2010 14:23:00 Document Registration [id number] 08/28/2008 16:45:00 Document Registration
[2017-02-07] MEDS: fentaNYL INJECTION 100 MCG/2 ML AMP IV PRN (12:51)
[2017-02-07 16:52] VITALS: BP 145/80
[2017-02-07] MEDS: meTOproloL SUCCINATE 50 MG (TOPROL XL) TAB PO SCH (20:33)
[2017-02-08] VITALS (7 sets, daily range): BP systolic 97–166; BP diastolic 55–73
[2017-02-08] MEDS: fentaNYL INJECTION 100 MCG/2 ML AMP IV PRN ×4 (00:03→23:28)
[2017-02-08 05:45] LABS: MEAN PLATELET VOLUME 9.2 FL (7.4-10.4); RED BLOOD COUNT 2.91 10^6/uL (4.35-5.85); RED CELL DISTRIBUTION WIDTH 16.4 % (10.0-14.5); WHITE BLOOD COUNT 7.1 10^3/uL (4.3-11.0)
[2017-02-08 06:01] LABS: ANION GAP 7 MMOL/L (5-14); BLOOD UREA NITROGEN 14 MG/DL (7-18); BUN/CREATININE RATIO 16; CALCIUM 8.4 MG/DL (8.5-10.1); CARBON DIOXIDE 24 MMOL/L (21-32); CHLORIDE 109 MMOL/L (98-107); CREATININE SERUM 0.89 MG/DL (0.60-1.30); GFR ESTIMATED > 60; GLUCOSE 85 MG/DL (70-105); SODIUM 140 MMOL/L (135-145)
--- NOTE | 2017-02-08 08:20 | Progress Note (SOAP) ---
Subjective Subjective 81 yo F reports no overnight or weekend events. No concerns this AM- wants to have the kyphoplasty- and says " i want the surgery because I would like to give it a try to see if it will help with the pain" She reports the calcitonin nasal spray has not helped much. Review of Systems General: No Chills, No Night Sweats HEENT: No Head Aches, No Visual Changes Pulmonary: No Dyspnea, No Cough Cardiovascular: No: Chest Pain, Palpitations Gastrointestinal: No: Abdominal Pain, Nausea, Vomiting Genitourinary: No Dysuria, No Frequency Musculoskeletal: back pain Neurological: Weakness, No: Change in speech, Numbness Objective Exam Vital Signs Vital Signs Date Time Temp Pulse Resp B/P (MAP) Pulse Ox O2 Delivery O2 Flow Rate FiO2 02/08/17 00:00 97.7 75 18 114/59 92 Room Air 02/07/17 16:52 96.3 67 20 145/80 94 Room Air I & O 02/08/17 07:00 Intake Total 2050 ml Output Total 1900 ml Balance 150 ml General Appearance: WD/WN, Mild Distress HEENT: Normal ENT Inspection Neck: Normal Inspection Respiratory: Chest Non Tender, Lungs Clear, Normal Breath Sounds, No Accessory Muscle Use, No Respiratory Distress Cardiovascular: Regular Rate, Rhythm, No Murmur Gastrointestinal: Non Tender, Soft Rectal: Deferred Back: Decreased Range of Motion, Vertebral Tenderness (T10 area) Extremity: Normal Range of Motion, Non Tender, No Calf Tenderness, No Pedal Edema Neurologic/Psychiatric: Alert, Oriented x3, No Motor/Sensory Deficits Skin: Normal Color, Warm/Dry Results Lab Laboratory Tests 02/08/17 05:35: White Blood Count 7.1, Red Blood Count 2.91L, Hemoglobin 9.2L, Hematocrit 28L, Mean Corpuscular Volume 97, Mean Corpuscular Hemoglobin 32, Mean Corpuscular Hemoglobin Concent 33, Red Cell Distribution Width 16.4H, Platelet Count 226, Mean Platelet Volume 9.2, Sodium Level 140, Potassium Level 4.0, Chloride Level 109H, Carbon Dioxide Level 24, Anion Gap 7, Blood Urea Nitrogen 14, Creatinine 0.89, Estimat Glomerular Filtration Rate > 60, BUN/Creatinine Ratio 16, Glucose Level 85, Calcium Level 8.4L Microbiology 02/06/17 MRSA Screen - Final, Complete MRSA not isolated 02/04/17 Urine Culture - Final, Complete Assessment/Plan Assessment/Plan Assessment/Plan Pt is a 81 yo F intractable back pain due to T10 compression fracture- calcitonin nasal spray x 2 weeks, PT/OT, fentanyl patch 25mcg Dr. Hilton, orthopedics consulted HTN- monitor- resume home meds GERD- stable pancreatic cancer- on chemo DVT ppx: lovenox, scd Dispo: Pt to undergo T10 kyphoplasty at noon today. Discharge planning Problems: Clinical Quality Measures DVT/VTE Risk/Contraindication: Risk Factor Score Per Nursin RFS Level Per Nursing on Admit: 4+=Very High DENY MONTAGUE MD Feb 08, 2017 08:20
[2017-02-08] MEDS: CALCITONIN NASAL 200 INTLU/AC (FORTICAL) 3.7 ML BTL SCH (08:47)
[2017-02-08] MEDS: fentaNYL PATCH 25 MCG (DURAGESIC) TD SCH (08:48)
[2017-02-08] MEDS ORDERED: FENTANYL PATCH REMOVAL TP SCH (09:00)
[2017-02-08] MEDS: doxAzosin 2 MG (CARDURA) TAB PO SCH ×2 (09:00→20:19)
--- NOTE | 2017-02-08 10:55 | Physical Therapy Progress Note ---
Therapy Progress Note Patient to have kyphoplasty performed at noon on this date. PT to assess in p.m. or a.m. dependent on patient ability. GONZALES BEVERLY PT Feb 08, 2017 10:55
--- NOTE | 2017-02-08 12:49 | Consultation ---
History of Present Illness History of Present Illness Patient Consulted On([place]/time) 02/08/17 12:45 Date of Admission 02/05/2017 Reason for Visit: compression fracture History of Present Illness 81 yr old FM with pancreatic cancer c/o severe back pain after she carried a heavy load of groceries. denies prior spinal compression fractures. denies radiation of the pain into the legs, denies incontinence. she is eager to have a kyphoplasty in hopes that it will provide pain relief. she takes lovenox which was held yesterday for surgery today. she is not being treated currently for osteoperosis. Allergies and Home Medications Allergies Coded Allergies: codeine (Verified Adverse Reaction, Mild, NAUSEA, 07/30/08) meperidine (Verified Adverse Reaction, Mild, N/V, 01/17/10) morphine (Verified Adverse Reaction, Mild, NAUSEA, 07/30/08) Home Medications Diazepam 5 Mg Tablet, 5 MG PO Q8H PRN for ANXIETY, (Reported) Doxazosin Mesylate 2 Mg Tablet, 2 MG PO BID, (Reported) Furosemide 20 Mg Tablet, 20 MG PO Q48H, (Reported) Lisinopril 40 Mg Tablet, 40 MG PO DAILY, (Reported) Metoprolol Succinate 100 Mg Tab.er.24h, 100 MG PO BID, (Reported) Metoprolol Succinate 50 Mg Tab.er.24h, 50 MG PO HS, (Reported) TAKES ALONG WITH 100MG TABLET AT BEDTIME FOR A TOTAL BEDTIME DOSE OF 150MG Ondansetron HCl 8 Mg Tablet, 8 MG PO Q8H PRN for NAUSEA/VOMITING, (Reported) Oxycodone HCl 5 Mg Tablet, 5 MG PO Q4H PRN for PAIN, (Reported) Past Ltusjnc-Xcjjmv-Xhevka Hx Patient Social History Alcohol Use: Denies Use Recreational Drug Use: No Smoking Status: Former Smoker Type Used: Cigarettes Former Smoker/When Quit: Dec 16, 2001 Recent Foreign Travel: No Contact w/Someone Who Travel: No Recent Infectious Disease Expo: No Recent Hopitalizations: No Physical Abuse Screen: No Sexual Abuse: No Immunizations Up To Date Tetanus Booster (TDap): Unknown Date of Influenza Vaccine: Oct 15, 2016 Seasonal Allergies Seasonal Allergies: No Surgeries HX Surgeries: Yes (BILATERAL FEM-POP TWICE WITH REVISION ON LEFT--GRAFT REMOVED FROM LEFT LEG 2007 , MULTIPLE ARTERIAL SURGERIES ON BILATERAL LEGS-- FEMORAL PATCH, ANGIOPLASTY, DEBRIDEMENTS; THROMBECTOMY; CATARACTS; IVC PLACEMENT ; CBD STENT; MULTIPLE COMPLICATIONS FROM SURGERIES--DVT/INFECTIONS/DEHISCENCE) Surgeries: Abdominal, Appendectomy, Eye Surgery, Gallbladder, Hysterectomy, Vascular Surgery Respiratory Hx Respiratory Disorders: No Cardiovascular Hx Cardiac Disorders: Yes (MULTIPLE INTERVENTIONS IN LEGS; MULTIPLE COMPLICATIONS FROM SURGERIES--DVT/INFECTION/DEHISCENCE; ASVD) Cardiac Disorders: Deep Vein Thrombosis, Hypertension, Peripheral Vascular Neurological Hx Neurological Disorders: No Reproductive System Hx Reproductive Disorders: No 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, 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 Genitourinary Hx Genitourinary Disorders: No Gastrointestinal Hx Gastrointestinal Disorders: Yes (PANCREATIC CANCER) Gastrointestinal Disorders: Gastroesophageal Reflux Musculoskeletal Hx Musculoskeletal Disorders: Yes Musculoskeletal Disorders: Degenerate Disk Disease, Arthritis Endocrine Hx Endocrine Disorders: No HEENT HX ENT Disorders: Yes (DENTURES) HEENT Disorders: Cataract Cancer Hx Cancer: Yes Cancer: Pancreatic Psychosocial Hx Psychiatric Problems: No Integumentary HX Skin/Integumentary Disorder: No (POST OP WOUND INFECTIONS, DEHISCENCE) Blood Transfusions Hx Blood Disorders: No Adverse Reaction to a Blood Tr: No Family Medical History Family Medial History: Acute lymphoblastic leukemia (ALL) G8 BROTHER Alzheimer's disease 19 FATHER Completed stroke 19 MOTHER Diabetes mellitus 19 MOTHER Review of Systems-General Constitutional: no symptoms reported Musculoskeletal: other Physical Exam-General Problems Physical Exam Vital Signs Vital Sign - Last 12Hours 02/04/17 18:20 Temp 98.7 Pulse 78 Resp 18 B/P (MAP) 147/80 Pulse Ox 93 O2 Delivery Room Air Capillary Refill : Less Than 3 SecondsLess Than 3 Seconds Back: other (back pain with percussion over T10, 5/5 motor tulio LE, NVSI, SILT all dermatomes) Extremities: other Assessment/Plan Assessment/Plan Admission Diagnosis/Plan ASSESSMENT: acute T10 compression fracture PLAN: to OR today for T10 kyphoplasty with biopsy Clinical Quality Measures DVT/VTE Risk/Contraindication: Risk Factor Score Per Nursin RFS Level Per Nursing on Admit: 4+=Very High ITZEL SCOTT DO Feb 08, 2017 12:49
--- NOTE | 2017-02-08 12:50 | Progress Note-Pre Operative ---
Pre-Operative Progress Note H&P Reviewed The H&P was reviewed, patient examined and no changes noted. Date H&P Reviewed: Feb 08, 2017 Time H&P Reviewed: 12:50 Pre-Operative Diagnosis: acute T10 compression fracture ITZEL SCOTT DO Feb 08, 2017 12:50
--- NOTE | 2017-02-08 13:18 | Physical Therapy Progress Note ---
Therapy Progress Note Patient is up with nursing in bathroom. Procedure will be performed this p.m. PT to continue in a.m. GONZALES BEVERLY PT Feb 08, 2017 13:18
[2017-02-08] MEDS: LISINOPRIL 40MG TABLET PO SCH (14:25)
[2017-02-08] MEDS ORDERED: fentaNYL INJECTION 100 MCG/2 ML AMP ONE ×2 (14:43→16:57)
--- NOTE | 2017-02-08 14:51 | Occupational Ther Daily Note ---
OT Current Status-Daily Note Subjective Pt alert, lying in bed. Pt agreed to therapy. Did not rate pain. Mental Status/Objective Patient Orientation: Person, Place, Time, Situation Functional [place] Measure 0=Not Assessed/NA 4=Minimal Assistance 1=Total Assistance 5=Supervision or Setup 2=Maximal Assistance 6=Modified [place] 3=Moderate Assistance 7=Complete [place] Attachments: IV Other Treatment Pt stated that she is tired and that she is going to have surgery in the pm. Pt was able to complete UE arm exercises against gravity 2 sets 10 reps. Pt tolerated though was easily fatigued with exercises. After therapy, pt lying in bed with call light and phone in reach. All needs met in room. OT Short Term Goals Short Term Goals 1=Demonstrate adherence to instructed precautions during ADL tasks. 2=Patient will verbalize/demonstrate understanding of assistive devices/ modifications for ADL. 3=Patient will improve strength/tolerance for activity to enable patient to perform ADL's. OT Custodial Goals Custodial Goals Time Frame: Feb 12, 2017 Eating (FIM): 6 Grooming(FIM): 6 Bathing(FIM): 5 Lower Body Dressing(FIM): 5 Toileting(FIM): 6 Toilet/Commode Transfer(FIM): 6 Additional Goals: 1-Demonstrate ADL Tasks, 2-Verbalize Understanding, 3- ImproveStrength/Yordy 1=Demonstrate adherence to instructed precautions during ADL tasks. 2=Patient will verbalize/demonstrate understanding of assistive devices/ modifications for ADL. 3=Patient will improve strength/tolerance for activity to enable patient to perform ADL's. OT Education/Plan Problem List/Assessment Pt to benefit from skilled OT intervention for ADL training, transfers, strengthening, adaptive equipment training as needed, and home safety education to maximize level of function and allow safe discharge. Discharge Recommendations Plan/Recommendations: Continue POC Treatment Plan/Plan of Care Patient would benefit from OT for education, treatment and training to promote independence in ADL's, mobility, safety and/or upper extremity function for ADL' s. Plan of Care: ADL Retraining, Functional Mobility, UE Funct Exercise/Act Treatment Duration: Feb 12, 2017 Visits Per Week: 5 Agreement: Yes Rehab Potential: Good Time/GCodes Start Time: 09:25 Stop Time: 09:40 Total Time Billed (hr/min): 15 Billed Treatment Time 1 visit-EX 1 (15 min) PT/OT Therapy GCodes Therapy Functional Limitation: Physical Therapy Test(s)/Tool used to determine: Level of Assistance Scale Functional Limitation-Current Charge Code: ÓSCAR Modifier: ARLIN Functional Limitation-Goal Charge Code: KATHIE Modifier: SKYLA FUENTES Feb 08, 2017 14:51
[2017-02-08] MEDS ORDERED: SEVOFLURANE (ULTANE) 15 ML INHAL SOLN ONE ×2 (16:55→18:01)
[2017-02-08] MEDS ORDERED: LACTATED RINGERS 1,000 ML IV ONE (16:55)
[2017-02-08] MEDS ORDERED: proPOfol 200 MG/20 ML (DIPRIVAN) VIAL IV ONE (16:55)
[2017-02-08] MEDS ORDERED: LIDOCAINE PF 2% 10 ML (XYLOCAINE) AMP ONE (16:55)
[2017-02-08] MEDS ORDERED: BUP/EPI 0.5% 1:200,000 (SENSORCAINE) 30 ML VIAL ONE (17:14)
[2017-02-08] MEDS ORDERED: LACTATED RINGERS 1,000 ML IV SCH (17:30)
[2017-02-08] MEDS ORDERED: ceFAZolin 1,000 MG (ANCEF) VIAL ONE (17:52)
[2017-02-08] MEDS ORDERED: PHENYLEPHRINE 100 MCG/ML 10 ML (ANESTHESIA) SYR ONE (18:01)
[2017-02-08] MEDS ORDERED: ONDANSETRON 4 MG/2 ML (SDV) Z0FRAN IV ONE (18:45)
[2017-02-08] MEDS ORDERED: fentaNYL INJECTION 100 MCG/2 ML AMP IV PRN (18:45)
--- NOTE | 2017-02-08 19:48 | Diagnostic Imaging Report ---
EXAM: Intraoperative fluoroscopy. FINDINGS: The provided images demonstrate kyphoplasty of what is reported as the T10 level based on these coned-down images. There is no cement evident posterior to the cortex of this vertebral body. Alignment of the visualized portion of the thoracic spine is normal. IMPRESSION: Fluoroscopic imaging utilized by Dr. Chandra during T10 kyphoplasty. Dictated by: Dictated on workstation # [id number]
[2017-02-08] MEDS: meTOproloL SUCCINATE 50 MG (TOPROL XL) TAB PO SCH (20:20)
[2017-02-09 00:50] VITALS: BP 128/68
[2017-02-09] MEDS: fentaNYL INJECTION 100 MCG/2 ML AMP IV PRN (02:01)
[2017-02-09 04:30] VITALS: BP 137/80
[2017-02-09 05:46] LABS: BASOPHILS # (AUTO) 0.1 10^3/uL (0.0-0.1); BASOPHILS % (AUTO) 1 % (0-10); EOSINOPHILS # (AUTO) 0.6 10^3/uL (0.0-0.3); EOSINOPHILS % (AUTO) 6 % (0-10); LYMPHOCYTES % (AUTO) 21 % (12-44); MEAN CORPUSCULAR HEMOGLOBIN 32 PG (25-34); MEAN CORPUSCULAR HGB CONC 34 G/DL (32-36); MEAN CORPUSCULAR VOLUME 96 FL (80-99); MEAN PLATELET VOLUME 9.4 FL (7.4-10.4); MONOCYTES # (AUTO) 1.6 X 10^3 (0.0-1.0); MONOCYTES % (AUTO) 17 % (0-12); NEUTROPHILS # (AUTO) 5.3 X 10^3 (1.8-7.8); NEUTROPHILS % (AUTO) 55 % (42-75); PLATELET COUNT 243 10^3/uL (130-400); RED BLOOD COUNT 2.96 10^6/uL (4.35-5.85); RED CELL DISTRIBUTION WIDTH 16.4 % (10.0-14.5); WHITE BLOOD COUNT 9.7 10^3/uL (4.3-11.0)
[2017-02-09 08:00] VITALS: BP 150/67
--- NOTE | 2017-02-09 08:09 | Progress Note (SOAP) ---
Subjective Subjective 81 yo F reports no overnight events- had T10 kyphoplasty last evening- Pt reports her pain has improved but not quite where she wants her pain level to be. She would like to work with PT today. Review of Systems General: No Chills, No Night Sweats HEENT: No Head Aches, No Visual Changes Pulmonary: No Dyspnea, No Cough Cardiovascular: No: Chest Pain, Palpitations Gastrointestinal: No: Abdominal Pain, Nausea, Vomiting Genitourinary: No Dysuria, No Frequency Musculoskeletal: back pain (improved) Neurological: Weakness, No: Change in speech, Numbness Objective Exam Vital Signs Vital Signs Date Time Temp Pulse Resp B/P (MAP) Pulse Ox O2 Delivery O2 Flow Rate FiO2 02/09/17 04:30 97.0 86 20 137/80 94 Room Air 02/09/17 00:50 87 128/68 02/08/17 23:12 98.5 85 20 102/59 96 Nasal Cannula 3.00 02/08/17 20:17 72 135/61 02/08/17 20:15 Nasal Cannula 3.00 02/08/17 19:35 96.5 88 20 157/73 97 Nasal Cannula 3.00 02/08/17 18:55 98.2 02/08/17 16:00 97.9 74 20 166/71 93 Room Air 02/08/17 08:25 96.2 67 12 152/73 97 Room Air I & O 02/09/17 07:00 Intake Total 700 ml Output Total 750 ml Balance -50 ml General Appearance: No Apparent Distress, WD/WN HEENT: PERRL/EOMI Neck: Normal Inspection Respiratory: Chest Non Tender, Lungs Clear, Normal Breath Sounds, No Accessory Muscle Use, No Respiratory Distress Cardiovascular: Regular Rate, Rhythm, No Murmur Gastrointestinal: Non Tender, Soft Rectal: Deferred Back: Decreased Range of Motion, Vertebral Tenderness (T10 area) Extremity: Normal Range of Motion, Non Tender, No Calf Tenderness, No Pedal Edema Neurologic/Psychiatric: Alert, Oriented x3, No Motor/Sensory Deficits Skin: Normal Color, Warm/Dry Results Lab Laboratory Tests 02/09/17 05:35: White Blood Count 9.7, Red Blood Count 2.96L, Hemoglobin 9.5L, Hematocrit 28L, Mean Corpuscular Volume 96, Mean Corpuscular Hemoglobin 32, Mean Corpuscular Hemoglobin Concent 34, Red Cell Distribution Width 16.4H, Platelet Count 243, Mean Platelet Volume 9.4, Neutrophils (%) (Auto) 55, Lymphocytes (%) (Auto) 21, Monocytes (%) (Auto) 17H, Eosinophils (%) (Auto) 6, Basophils (%) (Auto) 1, Neutrophils # (Auto) 5.3, Lymphocytes # (Auto) 2.0, Monocytes # (Auto) 1.6H, Eosinophils # (Auto) 0.6H, Basophils # (Auto) 0.1 Microbiology 02/06/17 MRSA Screen - Final, Complete MRSA not isolated 02/04/17 Urine Culture - Final, Complete Procedures 02/08/17 T10 Kyphoplasty Assessment/Plan Assessment/Plan Assessment/Plan Pt is a 81 yo F intractable back pain due to T10 compression fracture- calcitonin nasal spray d/c'd, PT/OT, fentanyl patch 25mcg Dr. Chandra orthopedics- T10 kyphoplasty 02/08/17 HTN- monitor- resume home meds GERD- stable pancreatic cancer- on chemo DVT ppx: lovenox, scd Dispo: Discharge planning- Case Management consulted plan to discharge to home tomorrow 02/10/17 with home health PT and maybe OT? PT to evaluate pt today post-kyphoplasty Problems: Clinical Quality Measures DVT/VTE Risk/Contraindication: Risk Factor Score Per Nursin RFS Level Per Nursing on Admit: 4+=Very High DENY MONTAGUE MD Feb 09, 2017 08:09
[2017-02-09] MEDS: doxAzosin 2 MG (CARDURA) TAB PO SCH ×2 (08:35→20:40)
[2017-02-09] MEDS: LISINOPRIL 40MG TABLET PO SCH (08:35)
[2017-02-09] MEDS: FUROSEMIDE 20 MG (LASIX) TAB PO SCH (08:36)
[2017-02-09] MEDS ORDERED: ceFAZolin INJECTION 1,000 MG in NS (IVPB) 50 ML IV ONE (09:30)
[2017-02-09] MEDS: CALCITONIN NASAL 200 INTLU/AC (FORTICAL) 3.7 ML BTL SCH (09:57)
--- NOTE | 2017-02-09 10:16 | Physical Therapy Daily Note ---
PT Daily Note-Current Subjective Patient is in bed with family present. Agrees to PT. Pain Numeric Pain Scale: 6 Location: Medial Location Body Site: Back Pain Description: Acute Mental Status Patient Orientation: Normal For Age Transfers Functional [place] Measure 0=Not Assessed/NA 4=Minimal Assistance 1=Total Assistance 5=Supervision or Setup 2=Maximal Assistance 6=Modified [place] 3=Moderate Assistance 7=Complete IndependenceIRFPAI Quality Coding Scale 6 Independent with activity with or without an assistive device 5 Patient requires set up or clean up by helper. Patient completes activity by themselves 4 Supervision or touching assist (CGA). [place] provide cues , steadying assist 3 The helper provides less than half the effort to complete the activity 2 The helper provides more than half the effort to complete the activity 1 Dependent. The helper does all the effort to complete an activity 7 Patient refused to complete or attempt activity 9 The patient did not perform the activity before the current illness or injury 88 Not attempted due to Medical conditions or safety concerns Transfers (B, C, W/C) (FIM): 5 Scootin Rollin Supine to/from Sit: 5 Sit to/from Stand: 5 education with patient and family on log roll bed mobility to sit EOB. Patient is able to perform this with bed flat and bilateral side rails down. Gait Training Gait (FIM): 5 Distance (FIM): 3=150 ft Distance: 225' Gait Level of Assist: 5 Gait Assistive Device: FWW slow, steady, shuffle gait sequence. Patient and family instructed to ambulate PRN in reed during the day to increase mobility and strength Exercises Seated Therapy Exercises: Ankle pumps, Long arc quads Seated Reps: 15 Assessment Patient improving and is highly motivated with progress. Education with patient and family on increasing mobility and strength by performing ambulation and exercises PRN during day. Patient will dismiss to home in a.m. with PT recommending home health PT to continue to ensure safe function in the home. PT Certified Residential Medication Aide Goals Residential Goals PT Residential Goals Time Frame: Feb 12, 2017 Transfers (B,C,W/C) (FIM): 6 Gait (FIM): 6 Gait distance (FIM): 3=150 ft Distance: 150 Gait Level of Assist: 6 PT Plan Treatment/Plan Treatment Plan: Continue Plan of Care Treatment Plan: Bed Mobility, Education, Functional Activity Yordy, Functional Strength, Gait, Therapeutic Exercise, Transfers Treatment Duration: Feb 12, 2017 Visits Per Week: 5-6 Time/GCodes Time In: 830 Time Out: 900 Total Billed Treatment Time: 30 Total Billed Treatment 1 visit FA 15 min Educ 15 min PT/OT Therapy GCodes Therapy Functional Limitation: Physical Therapy Test(s)/Tool used to determine: Level of Assistance Scale Functional Limitation-Current Charge Code: MOBCUR Modifier: CJ Functional Limitation-Goal Charge Code: MOBGOAL Modifier: GONZALES SMITH PT Feb 09, 2017 10:16
--- NOTE | 2017-02-09 10:23 | Progress Note (SOAP) ---
Subjective Subjective/Events-last exam Pamela is POD #1 s/p kyphoplasty and reports improvement in pain. She denies new back or leg pain today. She has not yet been OOB. Review of Systems General: No Chills, No Night Sweats HEENT: No Head Aches Pulmonary: No Dyspnea Cardiovascular: No: Chest Pain Gastrointestinal: No: Nausea, Vomiting Musculoskeletal: back pain Neurological: No: Change in speech, Incoordination, Weakness Objective Exam Vital Signs Date Time Temp Pulse Resp B/P (MAP) Pulse Ox O2 Delivery O2 Flow Rate FiO2 02/09/17 08:30 Room Air 02/09/17 08:00 96.9 76 20 150/67 95 Room Air 02/09/17 04:30 97.0 86 20 137/80 94 Room Air 02/09/17 00:50 87 128/68 02/08/17 23:12 98.5 85 20 102/59 96 Nasal Cannula 3.00 02/08/17 20:17 72 135/61 02/08/17 20:15 Nasal Cannula 3.00 02/08/17 19:35 96.5 88 20 157/73 97 Nasal Cannula 3.00 02/08/17 18:55 98.2 02/08/17 16:00 97.9 74 20 166/71 93 Room Air I & O 02/09/17 07:00 Intake Total 700 ml Output Total 750 ml Balance -50 ml Capillary Refill : Less Than 3 SecondsLess Than 3 Seconds General Appearance: No Apparent Distress Extremity: Normal Capillary Refill, No Pedal Edema Neurologic/Psychiatric: Alert, Oriented x3, No Motor/Sensory Deficits, Normal Mood/Affect Results Lab Laboratory Tests 02/09/17 05:35: White Blood Count 9.7, Red Blood Count 2.96L, Hemoglobin 9.5L, Hematocrit 28L, Mean Corpuscular Volume 96, Mean Corpuscular Hemoglobin 32, Mean Corpuscular Hemoglobin Concent 34, Red Cell Distribution Width 16.4H, Platelet Count 243, Mean Platelet Volume 9.4, Neutrophils (%) (Auto) 55, Lymphocytes (%) (Auto) 21, Monocytes (%) (Auto) 17H, Eosinophils (%) (Auto) 6, Basophils (%) (Auto) 1, Neutrophils # (Auto) 5.3, Lymphocytes # (Auto) 2.0, Monocytes # (Auto) 1.6H, Eosinophils # (Auto) 0.6H, Basophils # (Auto) 0.1 Microbiology 02/06/17 MRSA Screen - Final, Complete MRSA not isolated 02/04/17 Urine Culture - Final, Complete Assessment/Plan Assessment/Plan Assess & Plan/Chief Complaint POD #1 s/p kyphoplasty Plan: OOB, WBAT discussed bone health clinic follow up with dr elise for post op x-rays, typically 2 weeks, patient stated [facility] be better, which would be 1 month post op and this is ok keep incision covered clean and dry x 2 weeksl Clinical Quality Measures DVT/VTE Risk/Contraindication: Risk Factor Score Per Nursin RFS Level Per Nursing on Admit: 4+=Very High EZEQUIEL CHOUDHURY Feb 09, 2017 10:23
--- NOTE | 2017-02-09 10:29 | OPERATIVE REPORT ---
PROCEDURE PHYSICIAN: ITZEL SCOTT DATE OF PROCEDURE: 02/08/2017 SURGEON: Dr. Prateek D.O. FIRE PREVENTION SPECIALIST: None. PREOPERATIVE DIAGNOSES: 1. Osteoporosis. 2. T10 compression fracture. POSTOPERATIVE DIAGNOSES: 1. Osteoporosis. 2. T10 compression fracture. PROCEDURE PERFORMED: 1. T10 kyphoplasty. 2. Biopsy of T10 vertebral body. COMPLICATIONS: None. SPECIMENS SENT: T10 vertebral body. ESTIMATED BLOOD LOSS: None. ANESTHESIA: General endotracheal tube anesthesia. HISTORY OF PRESENT ILLNESS: Ms. Cobian is a very pleasant 81-year-old female with a history of pancreatic cancer. She was carrying some groceries 2 weeks ago when she felt a pop and had severe back pain. Subsequent imaging at [facility] demonstrating acute T10 compression fracture specifically along the inferior endplate of T10. She did wish to have this augmented to help with her pain relief. She understood the risks and benefits. OPERATION: The patient was identified by name on wrist band in the preoperative holding area. Her operative site was signed, consent was signed. SCDs were placed. Antibiotics were started She placed under general endotracheal tube anesthesia and transferred to the operating room table in the prone position. She was prepped and draped usual sterile fashion. AP and lateral x-ray were centered over the pedicles of T10. I then made a small incision on the left and the right of midline and advanced Kyphon trocar needles on the left and the right in the vertebral body. I then obtained a vertebral body biopsy at T10. I inflated the balloon into the body of T10 and I filled that void with cement. I did achieve a good endplate to endplate fill and a good fill left to right. I had no cement extravasation. Once the cement had cured, I removed the Jamshidi needles, and closed the wounds and applied Steri-Strips. At this point, I took the patient in supine position to PACU where she awoke without incident. She tolerated this procedure very well. The plan is to follow-up on the T10 vertebral body biopsy and she is stable for discharge from my point of view, whenever it is okay medicine. She knows to keep her wound clean and dry and change the dressings daily. Job ID: [id number] Dictated Date: 02/08/2017 18:19:17 Air Traffic Control Manager Date: 02/09/2017 10:19:22 / haylee
--- NOTE | 2017-02-09 11:43 | Anesthesia-General Post-Op ---
General Patient Condition Mental Status/LOC: Same as Preop Cardiovascular: Satisfactory Nausea/Vomiting: Absent Respiratory: Satisfactory Pain: Controlled Complications: Absent Post Op Complications Complications None Follow Up Care/Instructions Patient Instructions None needed. Anesthesia/Patient Condition Patient Condition Patient is doing well, no complaints, stable vital signs, no apparent adverse anesthesia problems. LIAM PASTOR DO Feb 09, 2017 11:43
--- NOTE | 2017-02-09 11:47 | Occupational Ther Daily Note ---
OT Current Status-Daily Note Subjective Pt agreeable to treatment, but would like to go to bed after session. Mental Status/Objective Functional [place] Measure 0=Not Assessed/NA 4=Minimal Assistance 1=Total Assistance 5=Supervision or Setup 2=Maximal Assistance 6=Modified [place] 3=Moderate Assistance 7=Complete [place] ADL-Treatment Pt transferring chair to bed with RN when therapist arrives. Pt transfers with supervision. Education provided regarding safe ADL completion. Pt requests to get dressed. Pt donned pullover shirt with set up. Pt donned underwear and pants with SBA for standing balance during pant hike. Pt sit to supine with SBA. Pt in bed with needs met after session. Upper Body (FIM): 5 Lower Body Dressing (FIM): 5 OT Short Term Goals Short Term Goals 1=Demonstrate adherence to instructed precautions during ADL tasks. 2=Patient will verbalize/demonstrate understanding of assistive devices/ modifications for ADL. 3=Patient will improve strength/tolerance for activity to enable patient to perform ADL's. OT Shelter Goals Shelter Goals Time Frame: Feb 12, 2017 Eating (FIM): 6 Grooming(FIM): 6 Bathing(FIM): 5 Lower Body Dressing(FIM): 5 Toileting(FIM): 6 Toilet/Commode Transfer(FIM): 6 Additional Goals: 1-Demonstrate ADL Tasks, 2-Verbalize Understanding, 3- ImproveStrength/Yordy 1=Demonstrate adherence to instructed precautions during ADL tasks. 2=Patient will verbalize/demonstrate understanding of assistive devices/ modifications for ADL. 3=Patient will improve strength/tolerance for activity to enable patient to perform ADL's. OT Education/Plan Problem List/Assessment Pt to benefit from skilled OT intervention for ADL training, transfers, strengthening, adaptive equipment training as needed, and home safety education to maximize level of function and allow safe discharge. Discharge Recommendations Plan/Recommendations: Continue POC Treatment Plan/Plan of Care Patient would benefit from OT for education, treatment and training to promote independence in ADL's, mobility, safety and/or upper extremity function for ADL' s. Plan of Care: ADL Retraining, Functional Mobility, UE Funct Exercise/Act Treatment Duration: Feb 12, 2017 Visits Per Week: 5 Agreement: Yes Rehab Potential: Good Time/GCodes Start Time: 11:08 Stop Time: 11:21 Total Time Billed (hr/min): 13 Billed Treatment Time 1 visit, ADL(13minutes) PT/OT Therapy GCodes Therapy Functional Limitation: Physical Therapy Test(s)/Tool used to determine: Level of Assistance Scale Functional Limitation-Current Charge Code: MOBJOE Modifier: ARLIN Functional Limitation-Goal Charge Code: MOBGOAL Modifier: CECE DESHPANDE OT Feb 09, 2017 11:46
[2017-02-09 16:00] VITALS: BP 127/59
[2017-02-09] MEDS: meTOproloL SUCCINATE 50 MG (TOPROL XL) TAB PO SCH (20:40)
[2017-02-10] VITALS: BP 137/72
[2017-02-10 08:00] VITALS: BP 130/70
--- NOTE | 2017-02-10 08:39 | Progress Note (SOAP) ---
Subjective Subjective 81 yo F reports no overnight events- PT/OT to evaluate pt for inpt rehab today. Pt reports her pain is a 5, on admission 8-9. Review of Systems General: No Chills, No Night Sweats HEENT: No Head Aches Pulmonary: No Dyspnea Cardiovascular: No: Chest Pain Gastrointestinal: No: Nausea, Vomiting Genitourinary: No Dysuria, No Frequency Musculoskeletal: back pain Neurological: No: Change in speech, Incoordination, Weakness Objective Exam Vital Signs Vital Signs Date Time Temp Pulse Resp B/P (MAP) Pulse Ox O2 Delivery O2 Flow Rate FiO2 02/10/17 00:00 97.7 80 20 137/72 91 Room Air 02/09/17 20:40 Room Air 02/09/17 16:00 98.4 77 16 127/59 95 Room Air I & O 02/10/17 06:59 Intake Total 1780 ml Output Total 700 ml Balance 1080 ml General Appearance: No Apparent Distress HEENT: PERRL/EOMI Neck: Normal Inspection Respiratory: Chest Non Tender, Lungs Clear, Normal Breath Sounds, No Accessory Muscle Use, No Respiratory Distress Cardiovascular: Regular Rate, Rhythm, No Murmur Gastrointestinal: Non Tender, Soft Rectal: Deferred Back: Decreased Range of Motion, Vertebral Tenderness (T10 area) Extremity: Normal Capillary Refill, No Pedal Edema Neurologic/Psychiatric: Alert, Oriented x3, No Motor/Sensory Deficits, Normal Mood/Affect Skin: Normal Color, Warm/Dry Results Lab Microbiology 02/06/17 MRSA Screen - Final, Complete MRSA not isolated 02/04/17 Urine Culture - Final, Complete Assessment/Plan Assessment/Plan Assessment/Plan Pt is a 81 yo F intractable back pain due to T10 compression fracture- calcitonin nasal spray d/c'd, Continue PT/OT, fentanyl patch 25mcg Dr. Chandra orthopedics - T10 kyphoplasty 02/08/17 HTN- monitor- cont home meds GERD- stable pancreatic cancer- on chemo DVT ppx: lovenox, scd Dispo: Discharge planning- Case Management consulted- Pt to be evaluated for Inpatient Rehab. Problems: Clinical Quality Measures DVT/VTE Risk/Contraindication: Risk Factor Score Per Nursin RFS Level Per Nursing on Admit: 4+=Very High DENY MONTAGUE MD Feb 10, 2017 08:39
[2017-02-10] MEDS: LISINOPRIL 40MG TABLET PO SCH (09:00)
[2017-02-10] MEDS ORDERED: ENOXAPARIN 40 MG/0.4 ML (LOVENOX) SYR SC SCH (09:00)
[2017-02-10] MEDS: CALCITONIN NASAL 200 INTLU/AC (FORTICAL) 3.7 ML BTL SCH (09:06)
[2017-02-10] MEDS: doxAzosin 2 MG (CARDURA) TAB PO SCH (09:07)
[2017-02-10] MEDS ORDERED: lisINopril 20 MG (ZESTRIL) TAB PO SCH (09:10)
--- NOTE | 2017-02-10 10:44 | Discharge Inst-Simple/Standard ---
Discharge Inst-Standard Discharge Medications New, Converted or Re-Newed RX: Other Patient Instructions/Follow Up Plan of Care/Instructions/FU: Transfer to 2nd floor inpatient rehab Activity as Tolerated: Yes Discharge Diet: Regular Diet DENY MONTAGUE MD Feb 10, 2017 10:43
--- NOTE | 2017-02-10 14:48 | Physical Therapy Progress Note ---
Therapy Progress Note Review of notes reveals G codes to be as follows KATHIE LOZANO CJ SKYLA LARA PT Feb 10, 2017 14:47
--- NOTE | 2017-02-11 18:27 | Discharge Summary ---
Diagnosis/Chief Complaint Date of Admission 02/04/2017 Date of Discharge 02/10/2017 Discharge Date: Feb 10, 2017 Admission Diagnosis Admission Diagnosis intractable back pain due to T10 compression fracture- HTN- GERD- pancreatic cancer- Discharge Diagnosis intractable back pain due to T10 compression fracture- improved HTN- GERD- pancreatic cancer- anemia Reason Hospital Visit 81 year old female with pancreatic cancer admitted for intractable back pain secondary to T 10 compression fracture. Approximately 2 weeks ago patient was carrying groceries into her house and felt pain in her back. She went to via [facility] ER. Imaging did not show any acute fracture or injury. She did follow- up at [facility] [place], [place] shortly thereafter and wanted to try a muscle relaxer. The muscle relaxer provided little benefit. Patient continued to take her oxycodone that she had for her chronic arthritic pain but it was not effective enough so she had her daughter bring in to via [facility] ER. No radiation of pain- location: middle of her back. No issues with bowel or bladder. A repeat CT was performed demonstrating a T10 compression fracture. The patient was admitted for intractable back pain, IV fentanyl seemed to help a little bit and she also had a 50 microgram fentanyl patch applied-she did not require any extra doses of fentanyl overnight. This morning she did report that her back hurt most of the night. Also, a urinalysis was done in the ER that did show concern for urinary tract infection. She was given one dose of Rocephin and will continue nitrofurantoin while awaiting urine culture. Orthopedics was consulted and will see patient in regards to her T10 compression fracture. Discharge Summary Hospital Course Hospital Course Pt is a 81 yo F intractable back pain due to T10 compression fracture- calcitonin nasal spray Continue PT/OT, fentanyl patch 25mcg Dr. Chandar orthopedics- T10 kyphoplasty performed on 02/08/17 HTN- monitor- continued home meds GERD- stable pancreatic cancer- on chemo - will follow DVT ppx used during this hospital stay lovenox, scd Dispo: Discharge planning- Case Management consulted- Pt was transferred to Inpatient Rehab with good prognosis expected. Labs Laboratory Tests 02/09/17 05:35: Red Blood Count 2.96L, Hemoglobin 9.5L, Hematocrit 28L, Red Cell Distribution Width 16.4H, Monocytes (%) (Auto) 17H, Monocytes # (Auto) 1.6H, Eosinophils # ( Auto) 0.6H CT - T10 compression fracture Procedures T10 kyphoplasty Consultations Orthopedics Discharge Physical Examination Allergies: Coded Allergies: codeine (Verified Adverse Reaction, Mild, NAUSEA, 07/30/08) meperidine (Verified Adverse Reaction, Mild, N/V, 01/17/10) morphine (Verified Adverse Reaction, Mild, NAUSEA, 07/30/08) Vitals & I&Os Vital Signs Date Time Temp Pulse Resp B/P (MAP) Pulse Ox O2 Delivery O2 Flow Rate FiO2 02/10/17 08:00 98.2 73 16 130/70 91 Room Air 02/08/17 23:12 3.00 General Appearance: Alert, Oriented X3, Cooperative HEENT: Atraumatic Respiratory: Clear to Auscultation Cardiovascular: Regular Rate Abdominal: Normal Bowel Sounds, Soft Extremities: No Cyanosis Skin: No Rashes Neuro: Normal Speech, Strength at 5/5 X4 Ext Psych/Mental Status: Mental Status NL, Mood NL Discharge Home Medications Reviewed and agree with Discharge Medication list on patient's Discharge Instruction sheet Condition at Discharge Improving- transferred to IRF Instructions to Patient/Family Please see electronic discharge instructions given to patient. Clinical Quality Measures DVT/VTE Risk/Contraindication: Risk Factor Score Per Nursin RFS Level Per Nursing on Admit: 4+=Very High DENY MONTAGUE MD Feb 11, 2017 6:27 pm
[2017-02-17] MEDS ORDERED: FENT1PAT8 TD (09:22)
[2017-02-17] MEDS ORDERED: Calcitonin (09:22)
[2017-02-17] MEDS ORDERED: Oxycodone Hcl PO (09:22)
--- OUTSIDE RECORDS SUMMARY | 2017-03-07 06:10 | XMS REPORT | Continuity of Care Document ---
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 02/24/2011 Ot 250.00 02/24/2011 [...] 285.9 ANEMIA NOS 11/28/2011 Ot 440.20 ATHEROSCLEROSIS VIEJAS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 11/28/2011 Ot 440.4 CHRONIC TOTAL [...] 10/04/2014 INGRID COOPER MD Ot 440.21 ATHEROSCL VIEJAS ARTER EXTREM W INTERMIT 10/04/2014 INGRID COOPER [...] N Ot 157.9 03/19/2015 MORENITA FARRIS S AUTOMATIC DEVELOPER Ot 157.0 03/19/2015 FARRISMORENITA S AUTOMATIC DEVELOPER Ot 196.9 03/19/2015 FARRISMORENITA S AUTOMATIC DEVELOPER Ot 285.9 03/19/2015 FARRISMORENITA S AUTOMATIC DEVELOPER Ot V58.69 05/08/2015 FARRISMORENITA S AUTOMATIC DEVELOPER Ot 157.0 05/08/2015 FARRISGERAAH S AUTOMATIC DEVELOPER Ot 196.9 05/08/2015 MORENITA FARRIS AUTOMATIC DEVELOPER Ot 285.9 05/08/2015 FARRISMORENITA Mckeon S AUTOMATIC DEVELOPER Ot V58.69 05/10/2015 MORENITA FARRIS S AUTOMATIC DEVELOPER Ot 157.0 05/10/2015 FARRISMORENITA Mckeon S AUTOMATIC DEVELOPER Ot 196.9 05/10/2015 FARRISMORENITA Mckeon S AUTOMATIC DEVELOPER Ot 285.9 05/10/2015 FARRISMORENITA Mckeon S AUTOMATIC DEVELOPER Ot V58.69 05/22/2015 HERLINDA, BOBAN N Ot 157.0 05/22/2015 HERLINDA, BOBAN N Ot 196.9 05/22/2015 HERLINDA, BOBAN N Ot 285.9 05/22/2015 HERLINDA, BOBAN N Ot V58.11 05/22/2015 HERLINDA, BOBAN N Ot V58.69 05/22/2015 FARRISMORENITA Mckeon S AUTOMATIC DEVELOPER Ot 157.9 05/23/2015 HERLINDA, BOBAN N Ot 157.0 05/23/2015 HERLINDA, BOBAN N Ot 196.9 05/23/2015 HERLINDA, BOBAN N Ot 285.9 05/23/2015 HERLINDA, BOBAN N Ot V58.11 05/23/2015 HERLINDA, BOBAN N Ot V58.69 05/23/2015 FARRISMORENITA Mckeon AUTOMATIC DEVELOPER Ot 157.9 06/16/2015 HERLINDA, BOBAN N Ot [...] N Ot V58.69 07/03/2015 KALEIGH HILAH S AUTOMATIC DEVELOPER Ot 157.0 07/03/2015 FARIRS, HILAH S AUTOMATIC DEVELOPER Ot 196.9 07/03/2015 FARRIS HILAH S AUTOMATIC DEVELOPER Ot 285.9 07/03/2015 FARRIS, HILAH S AUTOMATIC DEVELOPER Ot V58.69 07/03/2015 FARRIS, HILAH S AUTOMATIC DEVELOPER Ot 157.0 07/03/2015 FARRIS, HILAH S AUTOMATIC DEVELOPER Ot 196.9 07/03/2015 FARRIS, HILAH S AUTOMATIC DEVELOPER Ot 285.9 07/03/2015 FARRIS, HILAH S AUTOMATIC DEVELOPER Ot V58.69 07/08/2015 MESSI LAZO, ROBERT Ot 157.0 07/08/2015 MESSI LAZO, GUZMANDiamondKEVAN Ot 196.9 07/08/2015 MESSI LAZO, ROBERT Ot 285.9 07/08/2015 MESSI LAZO, ROBERT Ot V58.69 07/16/2015 HERLINDA, BOBAN N Ot 157.0 07/16/2015 HERLINDA, BOBAN N Ot 196.9 07/16/2015 HERLINDA, BOBAN N Ot 285.9 07/16/2015 HERLINDA, BOBAN N Ot V58.11 07/16/2015 HERLINDA, BOBAN N Ot V58.69 07/16/2015 FARRIS, HILAH S AUTOMATIC DEVELOPER Ot 157.0 07/16/2015 FARRIS, HILAH S AUTOMATIC DEVELOPER Ot 196.9 07/16/2015 KALEIGH MORENITA S AUTOMATIC DEVELOPER Ot 285.9 07/16/2015 FARRIS, MORENITA S AUTOMATIC DEVELOPER Ot V58.69 07/25/2015 FARRIS, HILAH S AUTOMATIC DEVELOPER Ot 157.0 07/25/2015 FARRIS, HILAH S AUTOMATIC DEVELOPER Ot 196.9 07/25/2015 FARRIS GERAAH S AUTOMATIC DEVELOPER Ot 285.9 07/25/2015 FARRIS GERAAH S AUTOMATIC DEVELOPER Ot V58.69 08/06/2015 HERLINDAMARILU BRAUNAN N Ot 157.0 08/06/2015 HERLINDA, BOBAN N Ot 196.9 08/06/2015 HERLINDA, BOBAN N Ot 285.9 08/06/2015 HERLINDAXIN BRAUN N Ot V58.11 08/06/2015 HERLINDAMARILU BRAUNAN N Ot V58.69 08/06/2015 KALEIGH MORENITA S AUTOMATIC DEVELOPER Ot 157.0 08/06/2015 FARRIS, MORENITA S AUTOMATIC DEVELOPER Ot 196.9 08/06/2015 KALEIGH MORENITA S AUTOMATIC DEVELOPER Ot 285.9 08/06/2015 FARRIS, MORENITA S AUTOMATIC DEVELOPER Ot V58.69 08/14/2015 MARILU PATEAN N Ot 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 PANCREAS HEAD 08/14/2015 HERLINDAXIN BRAUN N Ot 196.9 MAL LEX LYMPH NODE NOS 08/14/2015 HERLINDAXIN BRAUN N Ot 285.9 ANEMIA NOS 08/14/2015 XIN PATE N Ot V58.11 ENCOUNTER FOR ANTINEOPLASTIC CHEMOTHERAP 08/14/2015 XIN PATE N Ot V58.69 OT MED,LT,CURRENT USE 08/14/2015 MORENITA FARRIS S AUTOMATIC DEVELOPER Ot 157.0 08/14/2015 FARRISMORENITA S AUTOMATIC DEVELOPER Ot 196.9 08/14/2015 FARRISGERAAH S AUTOMATIC DEVELOPER Ot 285.9 08/14/2015 FARRIS HILAH S AUTOMATIC DEVELOPER Ot V58.69 08/19/2015 MARILU PATEAN N Ot 157.0 08/19/2015 HERLINDA BOBAN N Ot 196.9 08/19/2015 HERLINDA BOBAN N Ot 285.9 08/19/2015 HERLINDAXIN BRAUN N Ot V58.11 08/19/2015 HERLINDAXIN BRAUN N Ot V58.69 08/21/2015 MORENITA FARRIS S AUTOMATIC DEVELOPER Ot 157.9 09/02/2015 FARRISMORENITA Mckeon S AUTOMATIC DEVELOPER Ot 157.9 09/10/2015 XIN PATE N Ot 157.0 09/10/2015 HERLINDAXIN BRAUN N Ot 196.9 09/10/2015 HERLINDAXIN BRAUN N Ot 285.9 09/10/2015 HERLINDAXIN BRAUN N Ot V58.11 09/10/2015 XIN PATE N Ot V58.69 09/11/2015 MORENITA FARRIS S AUTOMATIC DEVELOPER Ot C25.0 09/11/2015 FARRISMORENITA S AUTOMATIC DEVELOPER Ot G56.91 09/11/2015 FARRISMORENITA S AUTOMATIC DEVELOPER Ot Z79.899 09/17/2015 MORENITA FARRIS S AUTOMATIC DEVELOPER Ot C25.0 09/17/2015 FARRISMORENITA S AUTOMATIC DEVELOPER Ot G56.91 09/17/2015 FARRISMORENITA S AUTOMATIC DEVELOPER Ot Z79.899 10/01/2015 XIN PATE N Ot 157.0 10/01/2015 HERLINDAXIN BRAUN N Ot 196.9 10/01/2015 HERLINDAXIN BRAUN N Ot 285.9 10/01/2015 XIN PATE N Ot V58.11 10/01/2015 XIN PATE N Ot V58.69 10/02/2015 MORENITA FARRIS S AUTOMATIC DEVELOPER Ot C25.0 10/02/2015 FARRISMORENITA S AUTOMATIC DEVELOPER Ot Z79.899 10/15/2015 FARRIS, MORENITA S AUTOMATIC DEVELOPER Ot C25.0 10/15/2015 FARRIS, MORENITA S AUTOMATIC DEVELOPER Ot Z79.899 10/23/2015 FARRIS, HILAH S AUTOMATIC DEVELOPER Ot C25.0 10/23/2015 FARRIS, HILAH S AUTOMATIC DEVELOPER Ot Z79.899 10/31/2015 FARRIS, HILAH S AUTOMATIC DEVELOPER Ot C25.0 10/31/2015 FARRIS, GERAAH S AUTOMATIC DEVELOPER Ot Z79.899 11/02/2015 HERLINDAXIN BRAUN N Ot 157.0 11/02/2015 HERLINDAXIN BRAUN N Ot 196.9 11/02/2015 HERLINDAXIN BRAUN N Ot 285.9 11/02/2015 HERLINDAXIN BRAUN N Ot V58.11 11/02/2015 XIN PAET Ot V58.69 11/12/2015 XIN PATE Ot C25.0 11/12/2015 XIN PATE Ot C77.9 11/12/2015 XIN PATE Ot D64.9 11/12/2015 XIN PATE Ot Z51.11 11/12/2015 XIN PATE Ot Z79.899 11/18/2015 XIN PATE Ot C25.0 MALIGNANT NEOPLASM OF HEAD OF PANCREAS 11/18/2015 XIN PATE Ot 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 11/18/2015 XIN PATE Ot D64.9 ANEMIA, UNSPECIFIED 11/18/2015 XIN PTAE Ot Z51.11 ENCOUNTER FOR ANTINEOPLASTIC CHEMOTHERAP 11/18/2015 XIN PATE Ot Z79.899 OTHER DETENTION (CURRENT) DRUG THERAPY 12/05/2015 MORENITA FARRIS AUTOMATIC DEVELOPER Ot C25.0 12/05/2015 KALEIGH MORENITA Mckeon AUTOMATIC DEVELOPER Ot C77.9 12/05/2015 GERA FARRISLATA Mike AUTOMATIC DEVELOPER Ot D70.1 12/05/2015 MORENITA FARRIS AUTOMATIC DEVELOPER Ot T45.1X5A 12/05/2015 MORENITA FARRIS AUTOMATIC DEVELOPER Ot Z79.899 12/12/2015 MORENITA FARRIS AUTOMATIC DEVELOPER Ot C25.0 12/12/2015 MORENITA FARRIS AUTOMATIC DEVELOPER Ot C77.9 12/12/2015 GERA FARRISLATA Mike AUTOMATIC DEVELOPER Ot D70.1 12/12/2015 KALEIGH MORENITA Mckeon AUTOMATIC DEVELOPER Ot T45.1X5A 12/12/2015 KALEIGH MORENITA Mckeon AUTOMATIC DEVELOPER Ot Z79.899 12/13/2015 ZAYRA ELIZONDO MD Ot 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, UNSPECIF 12/13/2015 ZAYRA ELIZONDO MD Ot J90 PLEURAL EFFUSION, 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 12/13/2015 ZAYRA ELIZONDO MD Ot J98.11 ATELECTASIS 12/13/2015 ZAYRA ELIZONDO MD Ot Z79.899 OTHER DETENTION (CURRENT) DRUG THERAPY 12/15/2015 ZAYRA ELIZONDO MD Ot 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, UNSPECIF 12/15/2015 ZAYRA ELIZONDO MD Ot R20.0 ANESTHESIA OF SKIN 12/15/2015 ZAYRA ELIZONDO MD Ot R20.2 PARESTHESIA OF SKIN 12/15/2015 ZAYRA ELIZONDO MD Ot R51 HEADACHE 12/15/2015 ZAYRA ELIZONDO MD Ot Z79.899 OTHER DETENTION (CURRENT) DRUG THERAPY 12/17/2015 MORENITA FARRIS S AUTOMATIC DEVELOPER Ot C25.0 12/26/2015 MORENITA FARRIS S AUTOMATIC DEVELOPER Ot C25.0 12/26/2015 MORENITA FARRIS S AUTOMATIC DEVELOPER Ot C25.0 12/26/2015 MORENITA FARRIS S AUTOMATIC DEVELOPER Ot C77.9 12/26/2015 MORENITA FARRIS S AUTOMATIC DEVELOPER Ot I10 12/26/2015 MORENITA FARRIS S AUTOMATIC DEVELOPER Ot Z79.899 01/02/2016 MORENITA FARRIS S AUTOMATIC DEVELOPER Ot C25.0 01/02/2016 MORENITA FARRIS S AUTOMATIC DEVELOPER Ot C77.9 01/02/2016 MORENITA FARRIS S AUTOMATIC DEVELOPER Ot I10 01/02/2016 MORENITA FARRIS S AUTOMATIC DEVELOPER Ot Z79.899 01/09/2016 XIN PATE Ot C25.0 01/09/2016 XIN PATE Ot C77.9 01/09/2016 XIN PATE Ot D64.9 01/09/2016 XIN PATE Ot Z51.11 01/09/2016 XIN PATE N Ot Z79.899 01/10/2016 YANETH LAZO, JENNIFER Hernandez Ot R31.9 01/16/2016 YANETH LAZO, JENNIFER Hernandez Ot R31.9 01/29/2016 MORENITA FARRIS S AUTOMATIC DEVELOPER Ot C25.0 01/29/2016 MORENITA FARRIS S AUTOMATIC DEVELOPER Ot C77.9 01/29/2016 MORENITA FARRIS S AUTOMATIC DEVELOPER Ot I10 01/29/2016 MORENITA FARRIS S AUTOMATIC DEVELOPER Ot R74.8 01/29/2016 MORENITA FARRIS S AUTOMATIC DEVELOPER Ot Z79.899 01/29/2016 MORENITA FARRIS S AUTOMATIC DEVELOPER Ot C25.0 02/03/2016 GERA FARRISAH S AUTOMATIC DEVELOPER Ot C25.0 02/06/2016 BAIMA, ANCELMO L AUTOMATIC DEVELOPER Ot I10 02/06/2016 BAIMA, ANCELMO L AUTOMATIC DEVELOPER Ot I25.10 02/06/2016 BAIMA, ANCELMO L AUTOMATIC DEVELOPER Ot I65.23 02/06/2016 BAIMA, ANCELMO L AUTOMATIC DEVELOPER Ot I70.213 02/06/2016 BAIMA, ANCELMO L AUTOMATIC DEVELOPER Ot R00.2 02/11/2016 HERLINDA, XIN N Ot C25.0 02/11/2016 HERLINDAXIN N Ot C77.9 02/11/2016 HERLINDAXIN BRAUN N Ot D64.9 02/11/2016 XIN PATE N Ot Z79.899 02/11/2016 BAIMA, ANCELMO L AUTOMATIC DEVELOPER Ot I10 02/11/2016 BAIMA, ANCELMO L AUTOMATIC DEVELOPER Ot I25.10 02/11/2016 BAIMA, ANCELMO L AUTOMATIC DEVELOPER Ot I65.23 02/11/2016 BAIMA, ANCELMO L AUTOMATIC DEVELOPER Ot I70.213 02/11/2016 BAIMA, ANCELMO L AUTOMATIC DEVELOPER Ot R00.2 02/12/2016 BAIMA, ANCELMO L AUTOMATIC DEVELOPER Ot I10 02/12/2016 BAIMA, ANCELMO L AUTOMATIC DEVELOPER Ot I25.10 02/12/2016 BAIMA, ANCELMO L AUTOMATIC DEVELOPER Ot I65.23 02/12/2016 BAIMA, ANCELMO L AUTOMATIC DEVELOPER Ot I70.213 02/12/2016 BAIMA, ANCELMO L AUTOMATIC DEVELOPER Ot R00.2 02/17/2016 XIN PATE Ot C25.0 MALIGNANT NEOPLASM OF HEAD OF PANCREAS 02/17/2016 XIN PATE Ot 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 02/17/2016 XIN PATE N Ot D64.9 ANEMIA, UNSPECIFIED 02/17/2016 XIN PATE N Ot Z79.899 OTHER DETENTION (CURRENT) DRUG THERAPY 02/18/2016 XIN PATE N Ot C25.0 02/18/2016 XIN PATE N Ot C77.9 02/18/2016 XIN PATE N Ot D64.9 02/18/2016 XIN PATE N Ot Z79.899 02/18/2016 FARRISMORENITA Mckeon S AUTOMATIC DEVELOPER Ot C25.0 02/18/2016 KALEIGHMORENITA S AUTOMATIC DEVELOPER Ot C77.9 02/18/2016 KALEIGHMORENITA S AUTOMATIC DEVELOPER Ot I10 02/18/2016 KALEIGHMORENITA S AUTOMATIC DEVELOPER Ot R74.8 02/18/2016 FARRISMORENITA S AUTOMATIC DEVELOPER Ot Z79.899 02/19/2016 ANCELMO MARION AUTOMATIC DEVELOPER Ot I10 02/19/2016 ANCELMO MARION AUTOMATIC DEVELOPER Ot I25.10 02/19/2016 ANCELMO MARION AUTOMATIC DEVELOPER Ot I65.23 02/19/2016 ANCELMO MARION AUTOMATIC DEVELOPER Ot I70.213 02/19/2016 ANCELMO MARION AUTOMATIC DEVELOPER Ot R00.2 02/19/2016 XIN PATE N Ot C25.0 02/19/2016 XIN PATE N Ot C77.9 02/19/2016 XIN PATE N Ot D64.9 02/19/2016 XIN PATE N Ot Z79.899 02/20/2016 FARRISMORENITA Mckeon S AUTOMATIC DEVELOPER Ot C25.0 02/26/2016 KALEIGHMORENITA S AUTOMATIC DEVELOPER Ot C25.0 02/26/2016 KALEIGHMORENITA S AUTOMATIC DEVELOPER Ot C77.9 02/26/2016 FARRISMORENITA Mckeon S AUTOMATIC DEVELOPER Ot I10 02/26/2016 FARRISMORENITA S AUTOMATIC DEVELOPER Ot R74.8 02/26/2016 KALEIGHMORENITA S AUTOMATIC DEVELOPER Ot Z79.899 02/26/2016 FARRISMORENITA S AUTOMATIC DEVELOPER Ot C25.0 02/26/2016 FARRISMORENITA S AUTOMATIC DEVELOPER Ot C77.9 02/26/2016 FARRISMORENITA S AUTOMATIC DEVELOPER Ot I10 02/26/2016 KALEIGH MORENITA S AUTOMATIC DEVELOPER Ot R74.8 02/26/2016 KALEIGH MORENITA S AUTOMATIC DEVELOPER Ot Z79.899 02/26/2016 KALEIGHMORENITA S AUTOMATIC DEVELOPER Ot C25.0 03/04/2016 KALEIGH MORENITA S AUTOMATIC DEVELOPER Ot C25.0 MALIGNANT NEOPLASM OF HEAD OF PANCREAS 03/04/2016 KALEIGH MORENITA S AUTOMATIC DEVELOPER Ot 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 03/04/2016 FARRISMORENITA Mckeon AUTOMATIC DEVELOPER Ot I10 ESSENTIAL (PRIMARY) HYPERTENSION 03/04/2016 FARRISMORENITA MckeonP Ot R74.8 ABNORMAL LEVELS OF OTHER SERUM ENZYMES 03/04/2016 MORENITA FARRIS AUTOMATIC DEVELOPER Ot Z79.899 OTHER DETENTION (CURRENT) DRUG THERAPY 04/02/2016 FARRISMORENITA Mckeon AUTOMATIC DEVELOPER Ot C25.0 MALIGNANT NEOPLASM OF HEAD OF PANCREAS 04/02/2016 FARRISMORENITA Mckeon AUTOMATIC DEVELOPER Ot 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 04/02/2016 FARRISMORENITA Mckeon AUTOMATIC DEVELOPER Ot D64.9 ANEMIA, UNSPECIFIED 04/02/2016 FARRISMORENITA Mckeon AUTOMATIC DEVELOPER Ot I10 ESSENTIAL (PRIMARY) HYPERTENSION 04/02/2016 FARRISMORENITA MckeonP Ot 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 04/06/2016 XIN PATE N Ot C25.0 MALIGNANT NEOPLASM OF HEAD OF PANCREAS 04/06/2016 XIN PATE N Ot 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 04/06/2016 XIN PATE N Ot D64.9 ANEMIA, UNSPECIFIED 04/06/2016 HERLINDAXIN BRAUN N Ot Z51.11 ENCOUNTER FOR ANTINEOPLASTIC CHEMOTHERAP 04/06/2016 HERLINDAXIN BRAUN N Ot 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 04/15/2016 XIN PATE N Ot C25.0 MALIGNANT NEOPLASM OF HEAD OF PANCREAS 04/15/2016 XIN PATE N Ot 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 04/15/2016 XIN PATE N Ot D64.9 ANEMIA, UNSPECIFIED 04/15/2016 HERLINDAXIN BRAUN N Ot Z51.11 ENCOUNTER FOR ANTINEOPLASTIC CHEMOTHERAP 04/15/2016 XIN PATE N Ot 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 04/23/2016 FARRISMORENITA Mckeon AUTOMATIC DEVELOPER Ot C25.0 MALIGNANT NEOPLASM OF HEAD OF PANCREAS 04/23/2016 KALIEGHMORENITA AUTOMATIC DEVELOPER Ot 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 04/23/2016 KALEIGH MORENITA Mckeon AUTOMATIC DEVELOPER Ot D64.9 ANEMIA, UNSPECIFIED 04/23/2016 MORENITA FARRIS AUTOMATIC DEVELOPER Ot I10 ESSENTIAL (PRIMARY) HYPERTENSION 04/23/2016 MORENITA FARRIS AUTOMATIC DEVELOPER Ot Z79.899 OTHER DETENTION (CURRENT) DRUG THERAPY 04/23/2016 MORENITA FARRIS AUTOMATIC DEVELOPER Ot C25.0 MALIGNANT NEOPLASM OF HEAD OF PANCREAS 04/24/2016 MORENITA FARRIS AUTOMATIC DEVELOPER Ot C25.0 MALIGNANT NEOPLASM OF HEAD OF PANCREAS 04/24/2016 FARRISMORENITA Mckeon AUTOMATIC DEVELOPER Ot 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 04/24/2016 MORENITA FRARIS AUTOMATIC DEVELOPER Ot D64.9 ANEMIA, UNSPECIFIED 04/24/2016 MORENITA FARRIS AUTOMATIC DEVELOPER Ot I10 ESSENTIAL (PRIMARY) HYPERTENSION 04/24/2016 FARRISMORENITA Mckeon AUTOMATIC DEVELOPER Ot Z79.899 OTHER DETENTION (CURRENT) DRUG THERAPY 05/12/2016 MORENITA FARRIS AUTOMATIC DEVELOPER Ot C25.0 MALIGNANT NEOPLASM OF HEAD OF PANCREAS 05/13/2016 MORENITA FARRIS AUTOMATIC DEVELOPER Ot C25.0 MALIGNANT NEOPLASM OF HEAD OF PANCREAS 05/13/2016 MORENITA FARRIS AUTOMATIC DEVELOPER Ot 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 05/13/2016 MORENITA FARRIS AUTOMATIC DEVELOPER Ot D64.9 ANEMIA, UNSPECIFIED 05/13/2016 MORENITA FARRIS AUTOMATIC DEVELOPER Ot I10 ESSENTIAL (PRIMARY) HYPERTENSION 05/13/2016 MORENITA FARRIS AUTOMATIC DEVELOPER Ot 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 05/18/2016 XIN PATE N Ot C25.0 MALIGNANT NEOPLASM OF HEAD OF PANCREAS 05/18/2016 XIN PATE Ot 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 05/18/2016 XIN PATE N Ot D64.9 ANEMIA, UNSPECIFIED 05/18/2016 XIN PATE N Ot Z51.11 ENCOUNTER FOR ANTINEOPLASTIC CHEMOTHERAP 05/18/2016 XIN PATE N Ot 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 05/25/2016 XIN PATE N Ot C25.0 MALIGNANT NEOPLASM OF HEAD OF PANCREAS 05/25/2016 XIN PATE N Ot 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 05/25/2016 XIN PATE N Ot D64.9 ANEMIA, UNSPECIFIED 05/25/2016 HERLINDAXIN BRAUN N Ot Z51.11 ENCOUNTER FOR ANTINEOPLASTIC CHEMOTHERAP 05/25/2016 HERLINDAXIN N Ot Z79.899 OTHER DETENTION (CURRENT) DRUG THERAPY 05/25/2016 MORENITA FARRISP Ot [...] 06/26/2016 XIN PATE N Ot 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 07/16/2016 Ot 998.59 07/16/2016 HERLINDAXIN N Ot C25.0 MALIGNANT NEOPLASM OF HEAD OF PANCREAS 07/16/2016 HERLINDA BOBANGELICA N Ot 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 07/16/2016 HERLINDA BOBAN N Ot D64.9 ANEMIA, UNSPECIFIED 07/16/2016 HERLINDA BOBAN N Ot 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 07/23/2016 HERLINDA BOBAN N Ot C25.0 MALIGNANT NEOPLASM OF HEAD OF PANCREAS 07/23/2016 HERLINDA BOBAN N Ot 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 07/23/2016 XIN PATE Ot D64.9 ANEMIA, UNSPECIFIED 07/23/2016 XIN PATE N Ot 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 08/21/2016 XIN PATE Ot C25.0 MALIGNANT NEOPLASM OF HEAD OF PANCREAS 08/21/2016 XIN PATE N Ot 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 08/21/2016 XIN PATE N Ot D64.9 ANEMIA, UNSPECIFIED 08/21/2016 XIN PATE N Ot 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 08/28/2016 XIN PATE Ot C25.0 MALIGNANT NEOPLASM OF HEAD OF PANCREAS 08/28/2016 XIN PATE N Ot 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 08/28/2016 XIN PATE Ot D64.9 ANEMIA, UNSPECIFIED 08/28/2016 XIN PATE Ot Z23 ENCOUNTER FOR IMMUNIZATION 08/28/2016 XIN PATE Ot 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 09/24/2016 Ot 401.9 HYPERTENSION NOS 09/24/2016 Ot 785.1 PALPITATIONS 09/24/2016 Ot V12.59 HX-CIRCULATORY SYST DIS,NEC 09/24/2016 Ot V15.82 HISTORY OF TOBACCO USE 09/24/2016 YANETH LAZO, JENNIFER Hernandez Ot V76.12 OTH SCREEN MAMMO-MALIGN NEOPLASM OF HAILE 09/24/2016 YANETH LAZO, JENNIFER Hernandez Ot 272.4 HYPERLIPIDEMIA NEC/NOS 09/24/2016 JENNIFER WOLFE MD Ot 414.01 CORONARY ATHEROSCLEROSIS OF [place] CORON 09/24/2016 JENNIFER WOLFE MD Ot 786.50 [...] EXAM PRE-OPERATIVE NOS 09/24/2016 MORENITA FARRIS S AUTOMATIC DEVELOPER Ot 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 PANCREAS HEAD 09/24/2016 FARRISMORENITA Mckeon S AUTOMATIC DEVELOPER Ot 196.9 MAL LEX LYMPH NODE NOS 09/24/2016 MORENITA FARRIS S AUTOMATIC DEVELOPER Ot V58.69 OTH MED,LT,CURRENT USE 09/24/2016 Ot 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 PANCREAS HEAD 09/24/2016 Ot 196.9 MAL LEX LYMPH NODE NOS 09/24/2016 Ot 285.9 ANEMIA NOS 09/24/2016 Ot 288.60 LEUKOCYTOSIS, UNSPECIFIED 09/24/2016 Ot 780.60 FEVER, UNSPECIFIED 09/24/2016 Ot 782.4 JAUNDICE NOS 09/24/2016 Ot V58.69 OTH MED,LT,CURRENT USE 09/24/2016 Ot 288.60 LEUKOCYTOSIS, UNSPECIFIED 09/24/2016 Ot 780.60 FEVER, UNSPECIFIED 09/24/2016 MORENITA FARRIS S AUTOMATIC DEVELOPER Ot 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 PANCREAS HEAD 09/24/2016 MORENITA FARRIS S AUTOMATIC DEVELOPER Ot 196.9 MAL LEX LYMPH NODE NOS 09/24/2016 FARRISMORENITA Mckeon S AUTOMATIC DEVELOPER Ot 285.9 ANEMIA NOS 09/24/2016 MORENITA FARRIS S AUTOMATIC DEVELOPER Ot V58.69 OTH MED,LT,CURRENT USE 09/24/2016 MORENITA FARRIS S AUTOMATIC DEVELOPER Ot 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 PANCREAS HEAD 09/24/2016 FARRISMORENITA Mckeon S AUTOMATIC DEVELOPER Ot 196.9 MAL LEX LYMPH NODE NOS 09/24/2016 MORENITA FARRIS S AUTOMATIC DEVELOPER Ot 285.9 ANEMIA NOS 09/24/2016 MORENITA FARRIS S AUTOMATIC DEVELOPER Ot V58.69 OTH MED,LT,CURRENT USE 09/24/2016 MORENITA FARRIS S AUTOMATIC DEVELOPER Ot 157.9 MALIG LEX PANCREAS NOS 09/24/2016 MESSI LAZO, ROBERT Ot 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 PANCREAS HEAD 09/24/2016 MESSI LAZO, ROBERT Ot 196.9 MAL LEX LYMPH NODE NOS 09/24/2016 MESSI LAZO, ROBERT Ot 285.9 ANEMIA NOS 09/24/2016 MESSI LAZO, ROBERT Ot V58.69 OTH MED,LT,CURRENT USE 09/24/2016 MORENITA FARRIS AUTOMATIC DEVELOPER Ot 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 PANCREAS HEAD 09/24/2016 MORENITA FARRIS AUTOMATIC DEVELOPER Ot 196.9 MAL LEX LYMPH NODE NOS 09/24/2016 MORENITA FARRIS AUTOMATIC DEVELOPER Ot 285.9 ANEMIA NOS 09/24/2016 MORENITA FARRIS AUTOMATIC DEVELOPER Ot V58.69 OTH MED,LT,CURRENT USE 09/24/2016 MORENITA FARRIS AUTOMATIC DEVELOPER Ot 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 PANCREAS HEAD 09/24/2016 MORENITA FARRIS AUTOMATIC DEVELOPER Ot 196.9 MAL LEX LYMPH NODE NOS 09/24/2016 MORENITA FARRIS AUTOMATIC DEVELOPER Ot 285.9 ANEMIA NOS 09/24/2016 MORENITA FARRISP Ot V58.69 OTH MED,LT,CURRENT USE 09/24/2016 MORENITA FARRIS AUTOMATIC DEVELOPER Ot 157.9 MALIG LEX PANCREAS NOS 09/24/2016 MORENITA FARRIS AUTOMATIC DEVELOPER Ot C25.0 MALIGNANT NEOPLASM OF HEAD OF PANCREAS 09/24/2016 MORENITA FARRIS AUTOMATIC DEVELOPER Ot 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 09/24/2016 MORENITA FARRIS AUTOMATIC DEVELOPER Ot Z79.899 OTHER DETENTION (CURRENT) DRUG THERAPY 09/24/2016 MORENITA FARRIS AUTOMATIC DEVELOPER Ot C25.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 09/24/2016 MORENITA FARRIS AUTOMATIC DEVELOPER Ot 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 09/24/2016 MORENITA FARRIS AUTOMATIC DEVELOPER Ot C25.0 MALIGNANT NEOPLASM OF HEAD OF PANCREAS 09/24/2016 MORENITA FARRIS AUTOMATIC DEVELOPER Ot Z79.899 OTHER DETENTION (CURRENT) DRUG THERAPY 09/24/2016 MORENITA FARRIS AUTOMATIC DEVELOPER Ot C25.0 MALIGNANT NEOPLASM OF HEAD OF PANCREAS 09/24/2016 MORENITA FARRISP Ot 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 09/24/2016 MORENITA FARRISP Ot 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 09/24/2016 MORENITA FARRISP Ot T45.1X5A ADVERSE EFFECT OF ANTINEOPLASTIC AND IMM 09/24/2016 MORENITA FARRIS AUTOMATIC DEVELOPER Ot Z79.899 OTHER DETENTION (CURRENT) DRUG THERAPY 09/24/2016 MORENITA FARRIS AUTOMATIC DEVELOPER Ot C25.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 09/24/2016 MORENITA FARRIS AUTOMATIC DEVELOPER Ot C25.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 09/24/2016 MORENITA FARRIS AUTOMATIC DEVELOPER Ot 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 09/24/2016 MORENITA FARRIS AUTOMATIC DEVELOPER Ot I10 ESSENTIAL (PRIMARY) HYPERTENSION 09/24/2016 MORENITA FARRIS AUTOMATIC DEVELOPER Ot 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 09/24/2016 YANETH LAZO, JENNIFER Hernandez Ot R31.9 HEMATURIA, UNSPECIFIED 09/24/2016 LOREMARYCARMEN ANCELMO L AUTOMATIC DEVELOPER Ot I10 ESSENTIAL (PRIMARY) HYPERTENSION 09/24/2016 LOREREENA CONROYHER L AUTOMATIC DEVELOPER Ot I25.10 ATHSCL HEART DISEASE OF [place] CORONARY 09/24/2016 LOREREENA CONROYHER L AUTOMATIC DEVELOPER Ot 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 09/24/2016 LOREMARYCARMEN ANCELMO L AUTOMATIC DEVELOPER Ot I70.213 ATHSCL [place] ARTERIES OF [facility] 09/24/2016 LOREANCELMO CONROY L AUTOMATIC DEVELOPER Ot R00.2 PALPITATIONS 09/24/2016 LOREMA ANCELMO L AUTOMATIC DEVELOPER Ot I10 ESSENTIAL (PRIMARY) HYPERTENSION 09/24/2016 BAIREENA CONROYHER L AUTOMATIC DEVELOPER Ot I25.10 ATHSCL HEART DISEASE OF [place] CORONARY 09/24/2016 BAIMAREENAANCELMO L AUTOMATIC DEVELOPER Ot 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 09/24/2016 BAIMAREENAANCELMO L AUTOMATIC DEVELOPER Ot I70.213 ATHSCL [place] ARTERIES OF [facility] 09/24/2016 LOREMAREENAANCELMO L AUTOMATIC DEVELOPER Ot R00.2 PALPITATIONS 09/24/2016 MORENITA FARRIS AUTOMATIC DEVELOPER Ot C25.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 09/24/2016 MORENITA FARRIS AUTOMATIC DEVELOPER Ot 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 09/24/2016 MORENITA FARRIS AUTOMATIC DEVELOPER Ot I10 ESSENTIAL (PRIMARY) HYPERTENSION 09/24/2016 MORENITA FARRIS AUTOMATIC DEVELOPER Ot R74.8 ABNORMAL LEVELS OF OTHER SERUM ENZYMES 09/24/2016 MORENITA FARRIS AUTOMATIC DEVELOPER Ot Z79.899 OTHER DETENTION (CURRENT) DRUG THERAPY 09/24/2016 MORENITA FARRIS AUTOMATIC DEVELOPER Ot C25.0 MALIGNANT NEOPLASM OF HEAD OF PANCREAS 09/24/2016 MORENITA FARRIS AUTOMATIC DEVELOPER Ot C25.0 MALIGNANT NEOPLASM OF HEAD OF PANCREAS 09/24/2016 MORENITA FARRIS AUTOMATIC DEVELOPER Ot 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 09/24/2016 MORENITA FARRIS AUTOMATIC DEVELOPER Ot I10 ESSENTIAL (PRIMARY) HYPERTENSION 09/24/2016 MORENITA AFRRISP Ot R74.8 ABNORMAL LEVELS OF OTHER SERUM ENZYMES 09/24/2016 MORENITA FARRISP Ot Z79.899 OTHER DETENTION (CURRENT) DRUG THERAPY 09/24/2016 MORENITA FARRISP Ot C25.0 MALIGNANT NEOPLASM OF HEAD OF PANCREAS 09/24/2016 MORENITA FARRISP Ot 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 09/24/2016 MORENITA FARRISP Ot D64.9 ANEMIA, UNSPECIFIED 09/24/2016 MORENITA FARRISP Ot I10 ESSENTIAL (PRIMARY) HYPERTENSION 09/24/2016 MORENITA FARRISP Ot 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 09/24/2016 MORENITA FARRISP Ot C25.0 MALIGNANT NEOPLASM OF HEAD OF PANCREAS 09/24/2016 MARILU PATEANGELICA Reeder Ot C25.0 MALIGNANT NEOPLASM OF HEAD OF PANCREAS 09/24/2016 XIN PATE Ot 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 09/24/2016 XIN PATE Ot D64.9 ANEMIA, UNSPECIFIED 09/24/2016 XIN PATE Ot Z23 ENCOUNTER FOR IMMUNIZATION 09/24/2016 XIN PATE Ot Z79.899 OTHER DETENTION (CURRENT) DRUG THERAPY 09/24/2016 FARRISMORENITA Mckeon AUTOMATIC DEVELOPER Ot C25.0 MALIGNANT NEOPLASM OF HEAD OF PANCREAS 09/29/2016 HERLINDA MARILUANGELICA Reeder Ot C25.0 MALIGNANT NEOPLASM OF HEAD OF PANCREAS 09/29/2016 XIN PATE Ot 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 09/29/2016 XIN PATE Ot D64.9 ANEMIA, UNSPECIFIED 09/29/2016 XIN PATE Ot Z23 ENCOUNTER FOR IMMUNIZATION 09/29/2016 XIN PATE Ot 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 09/29/2016 Ot 401.9 HYPERTENSION NOS 09/29/2016 Ot 785.1 PALPITATIONS 09/29/2016 Ot V12.59 HX-CIRCULATORY SYST DIS,NEC 09/29/2016 Ot V15.82 HISTORY OF TOBACCO USE 09/29/2016 YANETH LAZO, JENNIFER Hernandez Ot V76.12 OTH SCREEN MAMMO-MALIGN NEOPLASM OF [place] 09/29/2016 YANETH LAZO, JENNIFER Hernandez Ot 272.4 HYPERLIPIDEMIA NEC/NOS 09/29/2016 YANETH LAZO, JENNIFER Hernandez Ot 414.01 CORONARY ATHEROSCLEROSIS OF [place] CORON 09/29/2016 YANETH LAZO, JENNIFER Hernandez Ot [...] V72.84 EXAM PRE-OPERATIVE NOS 09/29/2016 MORENITA FARRIS AUTOMATIC DEVELOPER Ot 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 PANCREAS HEAD 09/29/2016 MORENITA FARRIS AUTOMATIC DEVELOPER Ot 196.9 MAL LEX LYMPH NODE NOS 09/29/2016 MORENITA FARRIS AUTOMATIC DEVELOPER Ot V58.69 OTH MED,LT,CURRENT USE 09/29/2016 Ot 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 PANCREAS HEAD 09/29/2016 Ot 196.9 MAL LEX LYMPH NODE NOS 09/29/2016 Ot 285.9 ANEMIA NOS 09/29/2016 Ot 288.60 LEUKOCYTOSIS, UNSPECIFIED 09/29/2016 Ot 780.60 FEVER, UNSPECIFIED 09/29/2016 Ot 782.4 JAUNDICE NOS 09/29/2016 Ot V58.69 OTH MED,LT,CURRENT USE 09/29/2016 Ot 288.60 LEUKOCYTOSIS, UNSPECIFIED 09/29/2016 Ot 780.60 FEVER, UNSPECIFIED 09/29/2016 FARRIS, HILAH S AUTOMATIC DEVELOPER Ot 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 PANCREAS HEAD 09/29/2016 MORENITA FARRIS S AUTOMATIC DEVELOPER Ot 196.9 MAL LEX LYMPH NODE NOS 09/29/2016 MORENITA FARRIS S AUTOMATIC DEVELOPER Ot 285.9 ANEMIA NOS 09/29/2016 MORENITA FARRIS S AUTOMATIC DEVELOPER Ot V58.69 OTH MED,LT,CURRENT USE 09/29/2016 MORENITA FARRIS AUTOMATIC DEVELOPER Ot 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 PANCREAS HEAD 09/29/2016 MORENITA FARRIS S AUTOMATIC DEVELOPER Ot 196.9 MAL LEX LYMPH NODE NOS 09/29/2016 MORENITA FARRIS S AUTOMATIC DEVELOPER Ot 285.9 ANEMIA NOS 09/29/2016 MORENITA FARRIS S AUTOMATIC DEVELOPER Ot V58.69 OTH MED,LT,CURRENT USE 09/29/2016 MORENITA FARRIS AUTOMATIC DEVELOPER Ot 157.9 MALIG LEX PANCREAS NOS 09/29/2016 MESSI LAZO, ROBERT Ot 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 PANCREAS HEAD 09/29/2016 MESSI LAZO, ROBERT Ot 196.9 MAL LEX LYMPH NODE NOS 09/29/2016 MESIS LAZO, THOMAS-KEVAN Ot 285.9 ANEMIA NOS 09/29/2016 MESSI LAZO, THOMAS-KEVAN Ot V58.69 OTH MED,LT,CURRENT USE 09/29/2016 MORENITA FARRIS AUTOMATIC DEVELOPER Ot 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 PANCREAS HEAD 09/29/2016 MORENITA FARRIS S AUTOMATIC DEVELOPER Ot 196.9 MAL LEX LYMPH NODE NOS 09/29/2016 MORENITA FARRIS S AUTOMATIC DEVELOPER Ot 285.9 ANEMIA NOS 09/29/2016 MORENITA FARRIS AUTOMATIC DEVELOPER Ot V58.69 OTH MED,LT,CURRENT USE 09/29/2016 MORENITA FARRIS S AUTOMATIC DEVELOPER Ot 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 PANCREAS HEAD 09/29/2016 MORENITA FARRIS S AUTOMATIC DEVELOPER Ot 196.9 MAL LEX LYMPH NODE NOS 09/29/2016 MORENITA FARRIS S AUTOMATIC DEVELOPER Ot 285.9 ANEMIA NOS 09/29/2016 MORENITA FARRIS S AUTOMATIC DEVELOPER Ot V58.69 OTH MED,LT,CURRENT USE 09/29/2016 MORENITA FARRIS AUTOMATIC DEVELOPER Ot 157.9 MALIG LEX PANCREAS NOS 09/29/2016 MORENITA FARRIS AUTOMATIC DEVELOPER Ot C25.0 MALIGNANT NEOPLASM OF HEAD OF PANCREAS 09/29/2016 MORENITA FARRIS AUTOMATIC DEVELOPER Ot 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 09/29/2016 FARRISMORENITA Mckeon AUTOMATIC DEVELOPER Ot Z79.899 OTHER DETENTION (CURRENT) DRUG THERAPY 09/29/2016 FARRISMORENITA Mckeon AUTOMATIC DEVELOPER Ot C25.0 MALIGNANT NEOPLASM OF HEAD OF PANCREAS 09/29/2016 FARRISMORENITA Mckeon AUTOMATIC DEVELOPER Ot Z79.899 OTHER DETENTION (CURRENT) DRUG THERAPY 09/29/2016 FARRISMORENITA Mckeon AUTOMATIC DEVELOPER Ot C25.0 MALIGNANT NEOPLASM OF HEAD OF PANCREAS 09/29/2016 FARRISMORENITA Mckeon AUTOMATIC DEVELOPER Ot 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 09/29/2016 FARRISMORENITA Mckeon AUTOMATIC DEVELOPER Ot C25.0 MALIGNANT NEOPLASM OF HEAD OF PANCREAS 09/29/2016 FARRISMORENITA Mckeon AUTOMATIC DEVELOPER Ot 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 09/29/2016 KALEIGH MORENITA Mckeon AUTOMATIC DEVELOPER Ot 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 09/29/2016 KALEIGH MORENITA Mckeon AUTOMATIC DEVELOPER Ot T45.1X5A ADVERSE EFFECT OF ANTINEOPLASTIC AND IMM 09/29/2016 FARRISMORENITA Mckeon AUTOMATIC DEVELOPER Ot 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 09/29/2016 FARRISMORENITA Mckeon AUTOMATIC DEVELOPER Ot C25.0 MALIGNANT NEOPLASM OF HEAD OF PANCREAS 09/29/2016 FARRISMORENITA Mckeon AUTOMATIC DEVELOPER Ot C25.0 MALIGNANT NEOPLASM OF HEAD OF PANCREAS 09/29/2016 KALEIGH MORENITA Mckeon AUTOMATIC DEVELOPER Ot 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 09/29/2016 MORENITA FARRIS Mike AUTOMATIC DEVELOPER Ot I10 ESSENTIAL (PRIMARY) HYPERTENSION 09/29/2016 GERA FARRISLATA Mckeon AUTOMATIC DEVELOPER Ot 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 09/29/2016 YANETH LAZO, JENNIFER Hernandez Ot R31.9 HEMATURIA, UNSPECIFIED 09/29/2016 ANCELMO MARION AUTOMATIC DEVELOPER Ot I10 ESSENTIAL (PRIMARY) HYPERTENSION 09/29/2016 ANCELMO MARION AUTOMATIC DEVELOPER Ot I25.10 ATHSCL HEART DISEASE OF [place] CORONARY 09/29/2016 ANCELMO MARION AUTOMATIC DEVELOPER Ot 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 09/29/2016 ANCELMO MARION AUTOMATIC DEVELOPER Ot I70.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 09/29/2016 ANCELMO MARION AUTOMATIC DEVELOPER Ot R00.2 PALPITATIONS 09/29/2016 ANCELMO MARION AUTOMATIC DEVELOPER Ot I10 ESSENTIAL (PRIMARY) HYPERTENSION 09/29/2016 ANCELMO MARION AUTOMATIC DEVELOPER Ot I25.10 ATHSCL HEART DISEASE OF [place] CORONARY 09/29/2016 ANCELMO MARION AUTOMATIC DEVELOPER Ot 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 09/29/2016 ANCELMO MARION AUTOMATIC DEVELOPER Ot I70.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 09/29/2016 ANCELMO MARION AUTOMATIC DEVELOPER Ot R00.2 PALPITATIONS 09/29/2016 MORENITA FARRIS AUTOMATIC DEVELOPER Ot C25.0 MALIGNANT NEOPLASM OF HEAD OF PANCREAS 09/29/2016 MORENITA FARRIS AUTOMATIC DEVELOPER Ot 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 09/29/2016 MORENITA FARRIS AUTOMATIC DEVELOPER Ot I10 ESSENTIAL (PRIMARY) HYPERTENSION 09/29/2016 MORENITA FARRIS AUTOMATIC DEVELOPER Ot R74.8 ABNORMAL LEVELS OF OTHER SERUM ENZYMES 09/29/2016 MORENITA FARRIS AUTOMATIC DEVELOPER Ot 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 09/29/2016 MORENITA FARRIS AUTOMATIC DEVELOPER Ot C25.0 MALIGNANT NEOPLASM OF HEAD OF PANCREAS 09/29/2016 MORENITA FARRIS AUTOMATIC DEVELOPER Ot C25.0 MALIGNANT NEOPLASM OF HEAD OF PANCREAS 09/29/2016 MORENITA FARRISP Ot 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 09/29/2016 MORENITA FARRIS AUTOMATIC DEVELOPER Ot I10 ESSENTIAL (PRIMARY) HYPERTENSION 09/29/2016 MORENITA FARRIS AUTOMATIC DEVELOPER Ot R74.8 ABNORMAL LEVELS OF OTHER SERUM ENZYMES 09/29/2016 MORENITA FARRIS AUTOMATIC DEVELOPER Ot Z79.899 OTHER DETENTION (CURRENT) DRUG THERAPY 09/29/2016 MORENITA FARRIS AUTOMATIC DEVELOPER Ot C25.0 MALIGNANT NEOPLASM OF HEAD OF PANCREAS 09/29/2016 MORENITA FARRIS AUTOMATIC DEVELOPER Ot 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 09/29/2016 MORENITA FARRIS AUTOMATIC DEVELOPER Ot D64.9 ANEMIA, UNSPECIFIED 09/29/2016 FARRISMORENITA Mckeon AUTOMATIC DEVELOPER Ot I10 ESSENTIAL (PRIMARY) HYPERTENSION 09/29/2016 MORENITA FARRIS AUTOMATIC DEVELOPER Ot 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 09/29/2016 FARRISMORENITA Mckeon AUTOMATIC DEVELOPER Ot C25.0 MALIGNANT NEOPLASM OF HEAD OF PANCREAS 09/29/2016 HERLINDAXIN BRAUN N Ot C25.0 MALIGNANT NEOPLASM OF HEAD OF PANCREAS 09/29/2016 HERLINDAXIN BRAUN N Ot 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 09/29/2016 HERLINDAXIN N Ot D64.9 ANEMIA, UNSPECIFIED 09/29/2016 HERLINDA BOBAN N Ot Z23 ENCOUNTER FOR IMMUNIZATION 09/29/2016 HERLINDAXIN BRAUN N Ot 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 09/29/2016 FARRISMORENITA Mckeon AUTOMATIC DEVELOPER Ot C25.0 MALIGNANT NEOPLASM OF HEAD OF PANCREAS 10/14/2016 HERLINDAXIN N Ot C25.0 MALIGNANT NEOPLASM OF HEAD OF PANCREAS 10/14/2016 HERLINDAXIN BRAUN N Ot 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 10/14/2016 HERLINDAXIN N Ot D64.9 ANEMIA, UNSPECIFIED 10/14/2016 HERLINDAMARILUAN N Ot Z23 ENCOUNTER FOR IMMUNIZATION 10/14/2016 XIN PATE N Ot 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 10/15/2016 GERA FARRISLATA Mckeon AUTOMATIC DEVELOPER Ot C25.0 MALIGNANT NEOPLASM OF HEAD OF PANCREAS 10/22/2016 HERLINDAXIN N Ot C25.0 MALIGNANT NEOPLASM OF HEAD OF PANCREAS 10/22/2016 HERLINDAXIN N Ot 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 10/22/2016 HERLINDAXIN N Ot D64.9 ANEMIA, UNSPECIFIED 10/22/2016 HERLINDA BOBAN N Ot Z23 ENCOUNTER FOR IMMUNIZATION 10/22/2016 HERLINDAMARILUAN N Ot 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 10/22/2016 GERA FARRISLATA Mckeon AUTOMATIC DEVELOPER Ot C25.0 MALIGNANT NEOPLASM OF HEAD OF PANCREAS 11/25/2016 HERLINDA MARILUAN N Ot C25.0 MALIGNANT NEOPLASM OF HEAD OF PANCREAS 11/25/2016 HERLINDA MARILUAN N Ot 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 11/25/2016 XIN PATE Ot D64.9 ANEMIA, UNSPECIFIED 11/25/2016 XIN PATE Ot Z23 ENCOUNTER FOR IMMUNIZATION 11/25/2016 XIN PATE Ot Z45.2 ENCOUNTER FOR ADJUSTMENT AND MANAGEMENT 11/25/2016 XIN PATE Ot Z79.899 OTHER DETENTION (CURRENT) DRUG THERAPY 11/26/2016 XIN PATE Ot C25.0 MALIGNANT NEOPLASM OF HEAD OF PANCREAS 11/26/2016 XIN PATE Ot 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 11/26/2016 XIN PATE Ot D64.9 ANEMIA, UNSPECIFIED 11/26/2016 XIN PATE Ot Z23 ENCOUNTER FOR IMMUNIZATION 11/26/2016 XIN PATE Ot Z45.2 ENCOUNTER FOR ADJUSTMENT AND MANAGEMENT 11/26/2016 XIN PATE Ot 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 12/17/2016 Ot 401.9 HYPERTENSION NOS 12/17/2016 Ot 785.1 PALPITATIONS 12/17/2016 Ot V12.59 HX-CIRCULATORY SYST DIS,NEC 12/17/2016 Ot V15.82 HISTORY OF TOBACCO USE 12/17/2016 YANETH LAZO, JENNIFER Hernandez Ot V76.12 OTH SCREEN MAMMO-MALIGN NEOPLASM OF [place] 12/17/2016 YANETH LAZO, JENNIFER Hernandez Ot 272.4 HYPERLIPIDEMIA NEC/NOS 12/17/2016 YANETH LAZO, JENNIFER Hernandez Ot 414.01 CORONARY ATHEROSCLEROSIS OF [place] CORON 12/17/2016 YANETH LAZO, JENNIFER Hernandez Ot [...] EXAM PRE-OPERATIVE NOS 12/17/2016 FARRIS, HILAH S AUTOMATIC DEVELOPER Ot 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 PANCREAS HEAD 12/17/2016 MORENITA FARRIS S AUTOMATIC DEVELOPER Ot 196.9 MAL LEX LYMPH NODE NOS 12/17/2016 MORENITA FARRIS S AUTOMATIC DEVELOPER Ot V58.69 OTH MED,LT,CURRENT USE 12/17/2016 Ot 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 PANCREAS HEAD 12/17/2016 Ot 196.9 MAL LEX LYMPH NODE NOS 12/17/2016 Ot 285.9 ANEMIA NOS 12/17/2016 Ot 288.60 LEUKOCYTOSIS, UNSPECIFIED 12/17/2016 Ot 780.60 FEVER, UNSPECIFIED 12/17/2016 Ot 782.4 JAUNDICE NOS 12/17/2016 Ot V58.69 OTH MED,LT,CURRENT USE 12/17/2016 Ot 288.60 LEUKOCYTOSIS, UNSPECIFIED 12/17/2016 Ot 780.60 FEVER, UNSPECIFIED 12/17/2016 MORENITA FARRIS S AUTOMATIC DEVELOPER Ot 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 PANCREAS HEAD 12/17/2016 MORENITA FARRIS S AUTOMATIC DEVELOPER Ot 196.9 MAL LEX LYMPH NODE NOS 12/17/2016 MORENITA FARRIS S AUTOMATIC DEVELOPER Ot 285.9 ANEMIA NOS 12/17/2016 MORENITA FARRIS S AUTOMATIC DEVELOPER Ot V58.69 OTH MED,LT,CURRENT USE 12/17/2016 MORENITA FARRIS S AUTOMATIC DEVELOPER Ot 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 PANCREAS HEAD 12/17/2016 MORENITA FARRIS S AUTOMATIC DEVELOPER Ot 196.9 MAL LEX LYMPH NODE NOS 12/17/2016 MORENITA FARRIS S AUTOMATIC DEVELOPER Ot 285.9 ANEMIA NOS 12/17/2016 MORENITA FARRIS S AUTOMATIC DEVELOPER Ot V58.69 OTH MED,LT,CURRENT USE 12/17/2016 MORENITA FARRIS S AUTOMATIC DEVELOPER Ot 157.9 MALIG LEX PANCREAS NOS 12/17/2016 ROBERT SWENSON MD Ot 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 PANCREAS HEAD 12/17/2016 ROBERT SWENSON MD Ot 196.9 MAL LEX LYMPH NODE NOS 12/17/2016 ROBERT SWENSON MD Ot 285.9 ANEMIA NOS 12/17/2016 ROBERT SWENSON MD Ot V58.69 OTH MED,LT,CURRENT USE 12/17/2016 MORENITA FARRIS S AUTOMATIC DEVELOPER Ot 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 PANCREAS HEAD 12/17/2016 MORENITA FARRIS S AUTOMATIC DEVELOPER Ot 196.9 MAL LEX LYMPH NODE NOS 12/17/2016 MORENITA FARRIS AUTOMATIC DEVELOPER Ot 285.9 ANEMIA NOS 12/17/2016 MORENITA FARRISP Ot V58.69 OTH MED,LT,CURRENT USE 12/17/2016 MORENITA FARRIS AUTOMATIC DEVELOPER Ot 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 PANCREAS HEAD 12/17/2016 MORENITA FARRIS AUTOMATIC DEVELOPER Ot 196.9 MAL LEX LYMPH NODE NOS 12/17/2016 MORENITA FARRISP Ot 285.9 ANEMIA NOS 12/17/2016 MORENITA FARRISP Ot V58.69 OTH MED,LT,CURRENT USE 12/17/2016 MORENITA FARRIS AUTOMATIC DEVELOPER Ot 157.9 MALIG LEX PANCREAS NOS 12/17/2016 MORENITA FARRIS AUTOMATIC DEVELOPER Ot C25.0 MALIGNANT NEOPLASM OF HEAD OF PANCREAS 12/17/2016 MORENITA FARRISP Ot 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 12/17/2016 MORENITA FARRIS AUTOMATIC DEVELOPER Ot Z79.899 OTHER DETENTION (CURRENT) DRUG THERAPY 12/17/2016 MORENITA FARRISP Ot C25.0 MALIGNANT NEOPLASM OF HEAD OF PANCREAS 12/17/2016 MORENITA FARRIS AUTOMATIC DEVELOPER Ot Z79.899 OTHER DETENTION (CURRENT) DRUG THERAPY 12/17/2016 MORENITA FARRIS AUTOMATIC DEVELOPER Ot C25.0 MALIGNANT NEOPLASM OF HEAD OF PANCREAS 12/17/2016 MORENITA FARRIS AUTOMATIC DEVELOPER Ot 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 12/17/2016 MORENITA FARRIS AUTOMATIC DEVELOPER Ot C25.0 MALIGNANT NEOPLASM OF HEAD OF PANCREAS 12/17/2016 MORENITA FARRIS AUTOMATIC DEVELOPER Ot 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 12/17/2016 MORENITA FARRISP Ot 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 12/17/2016 MORENITA FARRISP Ot T45.1X5A ADVERSE EFFECT OF ANTINEOPLASTIC AND IMM 12/17/2016 MORENITA FARRIS AUTOMATIC DEVELOPER Ot 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 12/17/2016 MORENITA FARRIS AUTOMATIC DEVELOPER Ot C25.0 MALIGNANT NEOPLASM OF HEAD OF PANCREAS 12/17/2016 FARRIS, HILAH S AUTOMATIC DEVELOPER Ot C25.0 MALIGNANT NEOPLASM OF HEAD OF PANCREAS 12/17/2016 MORENITA FARRISP Ot 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 12/17/2016 MORENITA FARRIS AUTOMATIC DEVELOPER Ot I10 ESSENTIAL (PRIMARY) HYPERTENSION 12/17/2016 MORENITA FARRISP Ot Z79.899 OTHER DETENTION (CURRENT) DRUG THERAPY 12/17/2016 YANETH LAZO, JENNIFER Hernandez Ot R31.9 HEMATURIA, UNSPECIFIED 12/17/2016 LOREANCELMO CONROY L AUTOMATIC DEVELOPER Ot I10 ESSENTIAL (PRIMARY) HYPERTENSION 12/17/2016 BAIANCELMO CONROY L AUTOMATIC DEVELOPER Ot I25.10 ATHSCL HEART DISEASE OF [place] CORONARY 12/17/2016 BAIREENA CONROYHER L AUTOMATIC DEVELOPER Ot 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 12/17/2016 REENA MARIONHER L AUTOMATIC DEVELOPER Ot I70.213 ATHSCL [place] ARTERIES OF [facility] 12/17/2016 LOREANCELMO CONROY L AUTOMATIC DEVELOPER Ot R00.2 PALPITATIONS 12/17/2016 DONI ANCELMO L AUTOMATIC DEVELOPER Ot I10 ESSENTIAL (PRIMARY) HYPERTENSION 12/17/2016 ANCELMO MARION L AUTOMATIC DEVELOPER Ot I25.10 ATHSCL HEART DISEASE OF [place] CORONARY 12/17/2016 BAIANCELMO CONROY L AUTOMATIC DEVELOPER Ot 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 12/17/2016 BAIMAREENAANCELMO L AUTOMATIC DEVELOPER Ot I70.213 ATHSCL [place] ARTERIES OF [facility] 12/17/2016 LOREANCELMO CONROY L AUTOMATIC DEVELOPER Ot R00.2 PALPITATIONS 12/17/2016 MORENITA FARRIS AUTOMATIC DEVELOPER Ot C25.0 MALIGNANT NEOPLASM OF HEAD OF PANCREAS 12/17/2016 MORENITA FARRIS AUTOMATIC DEVELOPER Ot 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 12/17/2016 MORENITA FARRIS AUTOMATIC DEVELOPER Ot I10 ESSENTIAL (PRIMARY) HYPERTENSION 12/17/2016 MORENITA FARRISP Ot R74.8 ABNORMAL LEVELS OF OTHER SERUM ENZYMES 12/17/2016 MORENITA FARRISP Ot 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 12/17/2016 MORENITA FARRIS AUTOMATIC DEVELOPER Ot C25.0 MALIGNANT NEOPLASM OF HEAD OF PANCREAS 12/17/2016 MORENITA FARRISP Ot C25.0 MALIGNANT NEOPLASM OF HEAD OF PANCREAS 12/17/2016 MORENITA FARRISP Ot 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 12/17/2016 MORENITA FARRIS AUTOMATIC DEVELOPER Ot I10 ESSENTIAL (PRIMARY) HYPERTENSION 12/17/2016 MORENITA FARRISP Ot R74.8 ABNORMAL LEVELS OF OTHER SERUM ENZYMES 12/17/2016 MORENITA FARRISP Ot 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 12/17/2016 MORENITA FARRIS AUTOMATIC DEVELOPER Ot C25.0 MALIGNANT NEOPLASM OF HEAD OF PANCREAS 12/17/2016 MORENITA FARRISP Ot 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 12/17/2016 MORENITA FARRISP Ot D64.9 ANEMIA, UNSPECIFIED 12/17/2016 MORENITA FARRISP Ot I10 ESSENTIAL (PRIMARY) HYPERTENSION 12/17/2016 MORENITA FARRISP Ot Z79.899 OTHER DETENTION (CURRENT) DRUG THERAPY 12/17/2016 MORENITA FARRISP Ot C25.0 MALIGNANT NEOPLASM OF HEAD OF PANCREAS 12/17/2016 MORENITA FARRIS AUTOMATIC DEVELOPER Ot C25.0 MALIGNANT NEOPLASM OF HEAD OF PANCREAS 12/17/2016 XIN PATE Lilli Ot C25.0 MALIGNANT NEOPLASM OF HEAD OF PANCREAS 12/17/2016 HERLINDAXIN Ot 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 12/17/2016 XIN PATE Ot D64.9 ANEMIA, UNSPECIFIED 12/17/2016 XIN PATE Ot Z23 ENCOUNTER FOR IMMUNIZATION 12/17/2016 XIN PATE Ot 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 12/17/2016 Ot 401.9 HYPERTENSION NOS 12/17/2016 Ot 785.1 PALPITATIONS 12/17/2016 Ot V12.59 HX-CIRCULATORY SYST DIS,NEC 12/17/2016 Ot V15.82 HISTORY OF TOBACCO USE 12/17/2016 YANETH LAZO, JENNIFER Hernandez Ot V76.12 OTH SCREEN MAMMO-MALIGN NEOPLASM OF [place] 12/17/2016 YANETH LAZO, JENNIFER Hernandez Ot 272.4 HYPERLIPIDEMIA NEC/NOS 12/17/2016 JENNIFER WOLFE MD Ot 414.01 CORONARY ATHEROSCLEROSIS OF [place] CORON 12/17/2016 YANETH LAZO, JENNIFER Hernandez Ot [...] V72.84 EXAM PRE-OPERATIVE NOS 12/17/2016 FARRISGERAAH S AUTOMATIC DEVELOPER Ot 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 PANCREAS HEAD 12/17/2016 FARRIS HILAH S AUTOMATIC DEVELOPER Ot 196.9 MAL LEX LYMPH NODE NOS 12/17/2016 FARRIS, HILAH S AUTOMATIC DEVELOPER Ot V58.69 OTH MED,LT,CURRENT USE 12/17/2016 Ot 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 PANCREAS HEAD 12/17/2016 Ot 196.9 MAL LEX LYMPH NODE NOS 12/17/2016 Ot 285.9 ANEMIA NOS 12/17/2016 Ot 288.60 LEUKOCYTOSIS, UNSPECIFIED 12/17/2016 Ot 780.60 FEVER, UNSPECIFIED 12/17/2016 Ot 782.4 JAUNDICE NOS 12/17/2016 Ot V58.69 OTH MED,LT,CURRENT USE 12/17/2016 Ot 288.60 LEUKOCYTOSIS, UNSPECIFIED 12/17/2016 Ot 780.60 FEVER, UNSPECIFIED 12/17/2016 FARRISGEARAH S AUTOMATIC DEVELOPER Ot 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 PANCREAS HEAD 12/17/2016 FARRIS HILAH S AUTOMATIC DEVELOPER Ot 196.9 MAL LEX LYMPH NODE NOS 12/17/2016 FARRIS HILAH S AUTOMATIC DEVELOPER Ot 285.9 ANEMIA NOS 12/17/2016 FARRISGERAAH S AUTOMATIC DEVELOPER Ot V58.69 OTH MED,LT,CURRENT USE 12/17/2016 FARRIS HILAH S AUTOMATIC DEVELOPER Ot 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 PANCREAS HEAD 12/17/2016 FARRIS HILAH S AUTOMATIC DEVELOPER Ot 196.9 MAL LEX LYMPH NODE NOS 12/17/2016 FARRIS HILAH S AUTOMATIC DEVELOPER Ot 285.9 ANEMIA NOS 12/17/2016 MORENITA FARRIS AUTOMATIC DEVELOPER Ot V58.69 OTH MED,LT,CURRENT USE 12/17/2016 MORENITA FARRIS S AUTOMATIC DEVELOPER Ot 157.9 MALIG LEX PANCREAS NOS 12/17/2016 MESSI LAZO, THOMSA-KEVAN Ot 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 PANCREAS HEAD 12/17/2016 MESSI LAZO, THOMAS-KEVAN Ot 196.9 MAL LEX LYMPH NODE NOS 12/17/2016 MESSI LAZO, ROBERT Ot 285.9 ANEMIA NOS 12/17/2016 MESSI LAZO, ROBERT Ot V58.69 OTH MED,LT,CURRENT USE 12/17/2016 MORENITA FARRIS S AUTOMATIC DEVELOPER Ot 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 PANCREAS HEAD 12/17/2016 MORENITA FARRIS S AUTOMATIC DEVELOPER Ot 196.9 MAL LEX LYMPH NODE NOS 12/17/2016 MORENITA FARRIS S AUTOMATIC DEVELOPER Ot 285.9 ANEMIA NOS 12/17/2016 MORENITA FARRIS S AUTOMATIC DEVELOPER Ot V58.69 OTH MED,LT,CURRENT USE 12/17/2016 MORENITA FARRIS AUTOMATIC DEVELOPER Ot 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 PANCREAS HEAD 12/17/2016 MORENITA FARRIS S AUTOMATIC DEVELOPER Ot 196.9 MAL LEX LYMPH NODE NOS 12/17/2016 MORENITA FARRIS S AUTOMATIC DEVELOPER Ot 285.9 ANEMIA NOS 12/17/2016 MORENITA FARRIS S AUTOMATIC DEVELOPER Ot V58.69 OTH MED,LT,CURRENT USE 12/17/2016 MORENITA FARRIS S AUTOMATIC DEVELOPER Ot 157.9 MALIG ELX PANCREAS NOS 12/17/2016 MORENITA FARRIS AUTOMATIC DEVELOPER Ot C25.0 MALIGNANT NEOPLASM OF HEAD OF PANCREAS 12/17/2016 MORENITA FARRIS AUTOMATIC DEVELOPER Ot 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 12/17/2016 MORENITA FARRIS AUTOMATIC DEVELOPER Ot Z79.899 OTHER DETENTION (CURRENT) DRUG THERAPY 12/17/2016 MORENITA FARRIS S AUTOMATIC DEVELOPER Ot C25.0 MALIGNANT NEOPLASM OF HEAD OF PANCREAS 12/17/2016 MORENITA FARRIS S AUTOMATIC DEVELOPER Ot 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 12/17/2016 MORENITA FARRIS AUTOMATIC DEVELOPER Ot C25.0 MALIGNANT NEOPLASM OF HEAD OF PANCREAS 12/17/2016 MORENITA FARRIS AUTOMATIC DEVELOPER Ot Z79.899 OTHER DETENTION (CURRENT) DRUG THERAPY 12/17/2016 MORENITA FARRIS AUTOMATIC DEVELOPER Ot C25.0 MALIGNANT NEOPLASM OF HEAD OF PANCREAS 12/17/2016 MORENITA FARRISP Ot 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 12/17/2016 MORENITA FARRISP Ot 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 12/17/2016 MORENITA FARRISP Ot T45.1X5A ADVERSE EFFECT OF ANTINEOPLASTIC AND IMM 12/17/2016 MORENITA FARRIS AUTOMATIC DEVELOPER Ot Z79.899 OTHER DETENTION (CURRENT) DRUG THERAPY 12/17/2016 MORENITA FARRIS AUTOMATIC DEVELOPER Ot C25.0 MALIGNANT NEOPLASM OF HEAD OF PANCREAS 12/17/2016 MORENITA FARRISP Ot C25.0 MALIGNANT NEOPLASM OF HEAD OF PANCREAS 12/17/2016 MORENITA FARRISP Ot 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 12/17/2016 MORNEITA FARRIS AUTOMATIC DEVELOPER Ot I10 ESSENTIAL (PRIMARY) HYPERTENSION 12/17/2016 MORENITA FARRIS AUTOMATIC DEVELOPER Ot 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 12/17/2016 YANETH LAZO, JENNIFER Hernandez Ot R31.9 HEMATURIA, UNSPECIFIED 12/17/2016 ANCELMO MARION L AUTOMATIC DEVELOPER Ot I10 ESSENTIAL (PRIMARY) HYPERTENSION 12/17/2016 ANCELMO MARION AUTOMATIC DEVELOPER Ot I25.10 ATHSCL HEART DISEASE OF [place] CORONARY 12/17/2016 ANCELMO MARION AUTOMATIC DEVELOPER Ot 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 12/17/2016 ANCELMO MARION L AUTOMATIC DEVELOPER Ot I70.213 ATHSCL [place] ARTERIES OF [facility] 12/17/2016 ANCELMO MARION L AUTOMATIC DEVELOPER Ot R00.2 PALPITATIONS 12/17/2016 ANCELMO MARION L AUTOMATIC DEVELOPER Ot I10 ESSENTIAL (PRIMARY) HYPERTENSION 12/17/2016 ANCELMO MARION L AUTOMATIC DEVELOPER Ot I25.10 ATHSCL HEART DISEASE OF [place] CORONARY 12/17/2016 ANCELMO MARION L AUTOMATIC DEVELOPER Ot 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 12/17/2016 ANCELMO MARION L AUTOMATIC DEVELOPER Ot I70.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 12/17/2016 ANCELMO MARION AUTOMATIC DEVELOPER Ot R00.2 PALPITATIONS 12/17/2016 MORENITA FARRIS AUTOMATIC DEVELOPER Ot C25.0 MALIGNANT NEOPLASM OF HEAD OF PANCREAS 12/17/2016 MORENITA FARRIS AUTOMATIC DEVELOPER Ot 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 12/17/2016 MORENITA FARRIS AUTOMATIC DEVELOPER Ot I10 ESSENTIAL (PRIMARY) HYPERTENSION 12/17/2016 MORENITA FARRIS AUTOMATIC DEVELOPER Ot R74.8 ABNORMAL LEVELS OF OTHER SERUM ENZYMES 12/17/2016 MORENITA FARRIS S AUTOMATIC DEVELOPER Ot 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 12/17/2016 MORENITA FARRIS AUTOMATIC DEVELOPER Ot C25.0 MALIGNANT NEOPLASM OF HEAD OF PANCREAS 12/17/2016 MORENITA FARRIS AUTOMATIC DEVELOPER Ot C25.0 MALIGNANT NEOPLASM OF HEAD OF PANCREAS 12/17/2016 MORENITA FARRIS AUTOMATIC DEVELOPER Ot 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 12/17/2016 MORENITA FARRIS AUTOMATIC DEVELOPER Ot I10 ESSENTIAL (PRIMARY) HYPERTENSION 12/17/2016 MORENITA FARRIS AUTOMATIC DEVELOPER Ot R74.8 ABNORMAL LEVELS OF OTHER SERUM ENZYMES 12/17/2016 MORENITA FARRIS AUTOMATIC DEVELOPER Ot Z79.899 OTHER DETENTION (CURRENT) DRUG THERAPY 12/17/2016 MORENITA FARRIS AUTOMATIC DEVELOPER Ot C25.0 MALIGNANT NEOPLASM OF HEAD OF PANCREAS 12/17/2016 MORENITA FARRIS AUTOMATIC DEVELOPER Ot 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 12/17/2016 MORENITA FARRIS AUTOMATIC DEVELOPER Ot D64.9 ANEMIA, UNSPECIFIED 12/17/2016 MORENITA FARRIS AUTOMATIC DEVELOPER Ot I10 ESSENTIAL (PRIMARY) HYPERTENSION 12/17/2016 MORENITA FARRIS AUTOMATIC DEVELOPER Ot 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 12/17/2016 MORENITA FARRIS AUTOMATIC DEVELOPER Ot C25.0 MALIGNANT NEOPLASM OF HEAD OF PANCREAS 12/17/2016 MORENITA FARRIS S AUTOMATIC DEVELOPER Ot C25.0 MALIGNANT NEOPLASM OF HEAD OF PANCREAS 12/17/2016 XIN PATE Ot C25.0 MALIGNANT NEOPLASM OF HEAD OF PANCREAS 12/17/2016 XIN PATE Ot 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 12/17/2016 XIN PATE N Ot D64.9 ANEMIA, UNSPECIFIED 12/17/2016 XIN PATE Lilli Ot Z23 ENCOUNTER FOR IMMUNIZATION 12/17/2016 XIN PATE Lilli Ot Z79.899 OTHER DETENTION (CURRENT) DRUG THERAPY 12/18/2016 MORENITA FARRIS S AUTOMATIC DEVELOPER Ot C25.0 MALIGNANT NEOPLASM OF HEAD OF PANCREAS 12/18/2016 FARRISMORENITA S AUTOMATIC DEVELOPER Ot R22.2 LOCALIZED SWELLING, MASS AND LUMP, TRUNK 12/18/2016 FARRISMORENITA S AUTOMATIC DEVELOPER Ot R59.0 LOCALIZED ENLARGED LYMPH NODES 12/18/2016 FARRISMORENITA S AUTOMATIC DEVELOPER Ot R91.8 OTHER NONSPECIFIC ABNORMAL FINDING OF VIKKI 12/18/2016 XIN PATE N Ot C25.0 MALIGNANT NEOPLASM OF HEAD OF PANCREAS 12/18/2016 XIN PATE Lilli Ot 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 12/18/2016 XIN PATE Lilli Ot D64.9 ANEMIA, UNSPECIFIED 12/18/2016 XIN PATE Lilli Ot Z79.899 OTHER DETENTION (CURRENT) DRUG THERAPY 12/18/2016 FARRISMORENITA S AUTOMATIC DEVELOPER Ot C25.0 MALIGNANT NEOPLASM OF HEAD OF PANCREAS 12/18/2016 FARRISMORENITA S AUTOMATIC DEVELOPER Ot R22.2 LOCALIZED SWELLING, MASS AND LUMP, TRUNK 12/18/2016 FARRISMORENITA S AUTOMATIC DEVELOPER Ot R59.0 LOCALIZED ENLARGED LYMPH NODES 12/18/2016 FARRISMORENITA S AUTOMATIC DEVELOPER Ot R91.8 OTHER NONSPECIFIC ABNORMAL FINDING OF VIKKI 12/30/2016 XIN PATE N Ot C25.0 MALIGNANT NEOPLASM OF HEAD OF PANCREAS 12/30/2016 XIN PATE Lilli Ot 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 12/30/2016 XIN PATE N Ot D64.9 ANEMIA, UNSPECIFIED 12/30/2016 XIN PATE Lilli Ot 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 01/07/2017 FARRISMORENITA S AUTOMATIC DEVELOPER Ot C25.0 MALIGNANT NEOPLASM OF HEAD OF PANCREAS 01/07/2017 FARRIS MORENITA S AUTOMATIC DEVELOPER Ot R22.2 LOCALIZED SWELLING, MASS AND LUMP, TRUNK 01/07/2017 FARRIS MORENITA S AUTOMATIC DEVELOPER Ot R59.0 LOCALIZED ENLARGED LYMPH NODES 01/07/2017 MORENITA FARRIS AUTOMATIC DEVELOPER Ot R91.8 OTHER NONSPECIFIC ABNORMAL FINDING OF VIKKI 01/14/2017 MORENITA FARRIS AUTOMATIC DEVELOPER Ot C25.0 MALIGNANT NEOPLASM OF HEAD OF PANCREAS 01/14/2017 MORENITA FARRIS AUTOMATIC DEVELOPER Ot R22.2 LOCALIZED SWELLING, MASS AND LUMP, TRUNK 01/14/2017 MORENITA FARRIS AUTOMATIC DEVELOPER Ot R59.0 LOCALIZED ENLARGED LYMPH NODES 01/14/2017 MORENITA FARRIS AUTOMATIC DEVELOPER Ot R91.8 OTHER NONSPECIFIC ABNORMAL FINDING OF VIKKI 01/21/2017 XIN PATE Lilli Ot C25.0 MALIGNANT NEOPLASM OF HEAD OF PANCREAS 01/21/2017 HERLINDAXIN Ot 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 01/21/2017 HERLINDAXIN Ot D64.9 ANEMIA, UNSPECIFIED 01/21/2017 XIN PATE Ot Z79.899 OTHER DETENTION (CURRENT) DRUG THERAPY 01/23/2017 RONEL MARES BIRTHING NURSE Ot 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, UNSPECIF 01/23/2017 RONEL MARES APRN Ot I10 ESSENTIAL (PRIMARY) HYPERTENSION 01/23/2017 RONEL MARES APRN Ot M47.814 SPONDYLOSIS W/O MYELOPATHY OR RADICULOPA 01/23/2017 RONEL MARES BIRTHING NURSE Ot M47.816 SPONDYLOSIS W/O MYELOPATHY OR RADICULOPA 01/23/2017 RONEL MARES APRN Ot M54.6 PAIN IN THORACIC SPINE 01/23/2017 RONEL MARES BIRTHING NURSE Ot 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 01/25/2017 RONEL MARES APRN Ot 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, UNSPECIF 01/25/2017 RONEL MARES BIRTHING NURSE Ot I10 ESSENTIAL (PRIMARY) HYPERTENSION 01/25/2017 RONEL MARES APRN Ot M47.814 SPONDYLOSIS W/O MYELOPATHY OR RADICULOPA 01/25/2017 RONEL MARES BIRTHING NURSE Ot M47.816 SPONDYLOSIS W/O MYELOPATHY OR RADICULOPA 01/25/2017 RONEL MARES BIRTHING NURSE Ot M54.6 PAIN IN THORACIC SPINE 01/25/2017 RONEL MARES APRN Ot Z79.899 OTHER DETENTION (CURRENT) DRUG THERAPY 02/08/2017 XIN PATE Ot C25.0 MALIGNANT NEOPLASM OF HEAD OF PANCREAS 02/08/2017 XIN PATE Ot 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 02/08/2017 XIN PATE Ot D64.9 ANEMIA, UNSPECIFIED 02/08/2017 XIN PATE Ot Z79.899 OTHER DETENTION (CURRENT) DRUG THERAPY 02/10/2017 ITZEL SCOTT DO, [...] Ot Y92.[address] TO SINGLE-FAMILY ( [facility] 02/10/2017 ITZEL SCOTT DO, Ot Y99.8 OTHER EXTERNAL CAUSE STATUS 02/10/2017 ITZEL SCOTT DO, Ot Z79.899 OTHER DETENTION (CURRENT) DRUG THERAPY 02/10/2017 XIN PATE Ot C25.0 MALIGNANT NEOPLASM OF HEAD OF PANCREAS 02/10/2017 XIN PATE Ot 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 02/10/2017 XIN PATE Ot D64.9 ANEMIA, UNSPECIFIED 02/10/2017 XIN PATE Ot Z79.899 OTHER DETENTION (CURRENT) DRUG THERAPY 02/11/2017 ITZEL SCOTT DO, [...] Ot Y92.[address] TO SINGLE-FAMILY ( [facility] 02/11/2017 ITZEL SCOTT DO Ot Y99.8 OTHER EXTERNAL CAUSE STATUS 02/11/2017 ITZEL SCOTT DO Ot Z79.899 OTHER DETENTION (CURRENT) DRUG THERAPY 02/13/2017 ITZEL SCOTT DO [...] Ot Y92.[address] TO SINGLE-FAMILY ( [facility] 02/13/2017 ITZEL SCOTT DO Ot Y99.8 OTHER EXTERNAL CAUSE STATUS 02/13/2017 ITZEL SCOTT DO Ot 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 02/17/2017 ITZEL SCOTT DO [...] Ot Y92.[address] TO SINGLE-FAMILY ( [facility] 02/17/2017 ITZEL SCOTT DO Ot Y99.8 OTHER EXTERNAL CAUSE STATUS 02/17/2017 SONIA HERNANDEZ ITZEL Fisher Ot Z79.899 OTHER DETENTION (CURRENT) DRUG THERAPY 02/17/2017 SONIA DO ITZEL [...] Ot Y92.[address] TO SINGLE-FAMILY ( [facility] 02/17/2017 SONIA DO ITZEL Fisher Ot Y99.8 OTHER EXTERNAL CAUSE STATUS 02/17/2017 SONIA DO ITZEL Phillip Ot 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 Type Provider Facility Loc./Unit Complaint [id number] 02/10/2017 11:30:00 2016 16:20:00 DIS Inpatient ERICKA MONTGOMERY MD Via [facility] IRF T10 COMPRESSION FRACTURE [id number] 02/04/2017 21:30:00 2016 11:10:00 DIS Outpatient ITZEL SCOTT DO Via [facility] SDC NEW T10 COMPRESSION FRACTURE INTRACTABLE PAIN UTI [id number] 01/23/2017 15:31:00 2016 18:42:00 DIS Emergency MARES, PETER Mary SQUIRES Via [facility] ER BACK PAIN [id number] 11/05/2016 13:19:00 2016 00:01:00 DIS Outpatient XIN PATE Via [facility] ONC [id number] 07/14/2016 14:37:00 2015 11:10:00 DIS Outpatient XIN PATE Via [facility] ONC [id number] 05/29/2016 19:32:00 2015 00:59:00 DIS Emergency DINAH MELISSA [facility] ER PALENESS/ABD SIDE PAIN [id number] 04/27/2016 12:55:00 2015 00:01:00 DIS Outpatient XIN PATE [facility] ONC [id number] 02/06/2016 09:00:00 2015 00:01:00 DIS Outpatient XIN PATE [facility] ONC [id number] 12/15/2015 09:04:00 2015 12:20:00 DIS Emergency ZAYRA ELIZONDO MD [facility] ER L SIDE NUMBNESS [id number] 11/12/2015 13:50:00 2015 00:01:00 DIS Outpatient XIN PATE [facility] ONC [id number] 10/01/2015 13:14:00 2014 23:59:59 CLS Outpatient MORENITA FARRIS AUTOMATIC DEVELOPER [facility] ONC [id number] 09/10/2015 13:18:00 2014 23:59:59 CLS Outpatient MORENITA FARRIS AUTOMATIC DEVELOPER [facility] ONC [id number] 08/20/2015 13:54:00 2014 23:59:59 CLS Outpatient MORENITA FARRIS AUTOMATIC DEVELOPER [facility] ONC [id number] 08/06/2015 13:20:00 2014 00:01:00 DIS Outpatient XIN PATE [facility] ONC [id number] 07/29/2015 09:10:00 2014 23:59:59 CLS Outpatient FARRIS HILAH S AUTOMATIC DEVELOPER [facility] RAD PANCREATIC CANCER [id number] 07/16/2015 13:13:00 2014 23:59:59 CLS Outpatient FARRIS HILAH S AUTOMATIC DEVELOPER [facility] ONC [id number] 06/25/2015 10:33:00 2014 23:59:59 CLS Outpatient FARRIS HILAH S AUTOMATIC DEVELOPER [facility] ONC [id number] 06/11/2015 13:45:00 2014 00:01:00 DIS Outpatient XIN PATE [facility] ONC [id number] 05/28/2015 14:00:00 2014 23:59:59 CLS Outpatient MESSI LAZO, ROBERT [facility] ONC [id number] 05/01/2015 09:20:00 2014 23:59:59 CLS Outpatient FARRIS HILAH S AUTOMATIC DEVELOPER [facility] RAD PANCREATIC CANCER [id number] 04/16/2015 13:44:00 2014 23:59:59 CLS Outpatient FARRIS HILAH S AUTOMATIC DEVELOPER [facility] ONC [id number] 02/19/2015 13:57:00 2014 23:59:59 CLS Outpatient FARRIS HILAH S AUTOMATIC DEVELOPER [facility] ONC [id number] 01/01/2015 13:54:00 2014 23:59:59 CLS Outpatient XIN PATE [facility] ONC [id number] 12/28/2014 05:53:00 2014 09:01:00 DIS Emergency MIKHAIL LAZO, ZAYRA Crowley [facility] ER HEART PALPITATIONS [id number] 12/25/2014 14:03:00 2014 23:59:59 CLS Outpatient FARRIS HILAH S AUTOMATIC DEVELOPER [facility] ONC [id number] 12/21/2014 06:04:00 2014 10:31:00 DIS Outpatient INGRID COOPER MD [facility] SDC PANCREATIC CANCER [id number] 12/19/2014 11:07:00 2014 23:59:59 CLS Outpatient INGRID COOPER MD [facility] PREOP PANCREATIC CANCER [id number] 12/12/2014 08:38:00 2014 16:20:00 DIS Outpatient JENNIFER WOLFE MD [facility] RAD PANCREATIC MASS [id number] 12/04/2014 12:21:00 2014 23:59:59 CLS Outpatient JENNIFER WOLFE MD [facility] RAD ABDOMINAL MASS [id number] 11/30/2014 14:45:00 2014 23:59:59 CLS Outpatient JENNIFER WOLFE MD [facility] RAD PANCREATIC MASS [id number] 11/30/2014 08:02:00 2014 23:59:59 CLS Outpatient JENNIFER WOLFE MD [facility] RAD PANCREATIC MASS [id number] 11/27/2014 08:49:00 2014 23:59:59 CLS Outpatient JENNIFER WOLFE MD [facility] CARD CHEST ABDOMINAL PAIN [id number] 10/04/2014 09:57:00 2013 17:50:00 DIS Outpatient INGRID COOPER MD [facility] CATH ASOD,LEG PAIN [id number] 06/05/2014 10:17:00 2013 23:59:59 CLS Outpatient JENNIFER WOLFE MD [facility] RAD SCREENING [id number] 02/23/2017 09:08:00 ACT Outpatient XIN PATE N [facility] ONC [id number] 12/17/2016 10:15:00 ACT Outpatient MORENITA FARRIS [facility] RAD PANCREATIC CANCER, LUNG NODULE [id number] 09/24/2016 10:07:00 ACT Outpatient MORENITA FARRIS [facility] RAD PANCREATIC CANCER [id number] 07/14/2016 07:39:00 PEN Preadmit MORENITA FARRIS [facility] ONC [id number] 04/22/2016 10:25:00 ACT Outpatient MORENITA FARRIS S AUTOMATIC DEVELOPER [facility] RAD PANCREATIC CANCER [id number] 03/17/2016 10:59:00 ACT Outpatient KALEIGH GERALATA S AUTOMATIC DEVELOPER [facility] ONC [id number] 02/06/2016 08:57:00 ACT Outpatient FARRISMORENITA Mckeon S AUTOMATIC DEVELOPER [facility] ONC [id number] 01/31/2016 09:37:00 ACT Outpatient MORENITA FARRIS S AUTOMATIC DEVELOPER [facility] RAD PANCREATIC CANCER [id number] 01/28/2016 10:39:00 ACT Outpatient MORENITA FARRIS S AUTOMATIC DEVELOPER [facility] ONC [id number] 01/21/2016 12:15:00 ACT Outpatient BAIANCELMO CONROY L AUTOMATIC DEVELOPER [facility] CARD PALPITATIONS,CAD,HTN,PAD [id number] 01/16/2016 07:45:00 ACT Outpatient BAIMARYCARMEN ANCELMO L AUTOMATIC DEVELOPER [facility] CARD PALPITATIONS,CAD,PAD,HTN [id number] 12/16/2015 15:44:00 ACT Outpatient YANETH LAZO, JENNIFER Hernandez [facility] RAD HEMATURIA [id number] 12/13/2015 12:18:00 ACT Emergency MIKHAIL LAZO, ZAYRA Crowley [facility] ER SOA [id number] 12/05/2015 16:39:00 ACT Outpatient MORENITA FARRIS AUTOMATIC DEVELOPER [facility] ONC [id number] 11/27/2015 08:34:00 ACT Outpatient MORENITA FARRIS S AUTOMATIC DEVELOPER [facility] RAD PANCREATIC CANCER [id number] 11/12/2015 13:52:00 ACT Outpatient MORENITA FARRIS S AUTOMATIC DEVELOPER [facility] ONC [id number] 02/05/2015 09:19:00 Document Registration [id number] 02/01/2015 10:17:00 Document Registration [id number] 11/27/2014 08:49:00 Document Registration [id number] 11/27/2014 08:49:00 Document Registration [id number] 11/27/2014 08:49:00 Document Registration [id number] 11/27/2014 08:48:00 Document Registration [id number] 08/26/2012 10:27:00 Document Registration [id number] 11/19/2011 11:20:00 Document Registration [id number] 10/28/2011 19:50:00 Document Registration [id number] 03/04/2011 10:10:00 Document Registration [id number] 03/02/2011 14:10:00 Document Registration [id number] 02/17/2011 19:16:00 Document Registration [id number] 11/27/2010 13:05:00 Document Registration [id number] 01/15/2010 14:23:00 Document Registration [id number] 08/28/2008 16:45:00 Document Registration
[2017-03-18] MEDS ORDERED: HYDR2TAB6 PO (15:01)
== END 2017-02-10 11:10 ==
LOC: DELPENDDIS → EDUNIT# 18:07 → ER 18:11 → 4TH 20:35 → UNDOADMOB 20:35 → 4TH 21:19 → UNDOADMOB 21:19 → SDC 21:30 → 4TH 21:30 → UNDOADMOB 21:30 → 4TH 21:30 → SDC 02-10 11:10 → UNDODISOB 02-10 11:10
PROVIDERS: ATTEND Orthopaedic Surgery
DX: S22.070A Wedge compression fracture of T9-T10 vertebra, initial encounter for closed fracture (principal); N39.0 Urinary tract infection, site not specified; M47.816 Spondylosis without myelopathy or radiculopathy, lumbar region; C25.9 Malignant neoplasm of pancreas, unspecified; I10 Essential (primary) hypertension; Z79.899 Other long term (current) drug therapy; X50.9XXA Other and unspecified overexertion or strenuous movements or postures, initial encounter; Y92.014 Private driveway to single-family (private) house as the place of occurrence of the external cause; Y99.8 Other external cause status
CPT/HCPCS: 36415; 71020; 72128; 72131; 72157; 80048; 80053; 81000; 82150; 83690; 85025; 85027; 85610; 85730; 87081; 87088; 88304; 88342; 96374; 96375; 96376; 99282; G0378

== ENCOUNTER 2017-02-10 11:30 | Inpatient (IN) | payer MEDICARE ==
[~2017-02-10] VITALS: Ht 175.3 cm; Wt 81.5 kg
[~2017-02-10 11:30] MED LIST changes: +DIAZ5TAB3 PO; +ONDA8TAB6 PO
[2017-02-10] MEDS ORDERED: DIAZEPAM 5 MG (VALIUM) TABLET PO PRN ×2 (12:15→12:30)
[2017-02-10] MEDS ORDERED: ONDANSETRON 8 MG (ZOFRAN) ORAL DISSOLVE TAB PO PRN (12:15)
--- NOTE | 2017-02-10 12:41 | Physical Therapy Evaluation ---
PT Evaluation-General Medical Diagnosis Admission Date Feb 10, 2017 at 11:30 Medical Diagnosis: T 10 compression fx Onset Date: Feb 04, 2017 Therapy Diagnosis Therapy Diagnosis: weakness; abn gait Height/Weight Height (Feet): 5 Height (Inches): 9.00 Weight (Pounds): 179 Weight (Ounces): 11.2 Weight Bear Status Location Restriction: LE Bilateral Referral Physician: aubrey Reason for Referral: Evaluation/Treatment Medical History Pertinent Medical History: Arthritis, GERD, HTN Additional Medical History pancreatic CA, HTN, PVD, DVT, GERD, DDD Current History Pt was carrying heavy grocery bags and the weight of the bags (she believes) caused the compression fx at T10--S/P kyphoplasty. Reviewed History: Yes Social History Home: Single Level Current Living Status: Alone Entry Into Home: Ramp, Stairs Without Railing Pt uses the ramp to enter her home. Prior/Core FIM Prior Level of Function Functional [place] Measure 0=Not Assessed/NA 4=Minimal Assistance 1=Total Assistance 5=Supervision or Setup 2=Maximal Assistance 6=Modified [place] 3=Moderate Assistance 7=Complete [place] Bed Mobility: 7 Transfers (B,C,W/C) (FIM): 7 Gait: 6 (did not use walker 100% of the time. ) Pt used her FWW intermittently; able to do own grocery shopping; still drives. PT Evaluation-Current Subjective Agreeable to PT. "I think I will only need to be here a few days." Pain Numeric Pain Scale: 9 Location Body Site: Back (mid) Pain Description: Ache Comment: Pt reports a decline in pain to 5/10 with walking and nu step Pt/Family Goals Return home and be mod indep Objective Patient Orientation: Person, Place, Time, Situation Problem Solving: Good ROM/Strength ROM Lower Extremities WNL Strenght Lower Extremities grossly 4/5 throughout Integumentary/Posture Integumentary intact Bowel Incontinence: No Bladder Incontinence: No Posture slight rounded shoulders with thoracic kyphosis Neuromuscular (Tone, Coordination, Reflexes) no noted functional deficits. Sensory Vision: Functional Hearing: Functional Hand Dominance: Right Sensation Right Lower Extremit: Intact Sensation Left Lower Extremity: Intact Transfers Functional [place] Measure 0=Not Assessed/NA 4=Minimal Assistance 1=Total Assistance 5=Supervision or Setup 2=Maximal Assistance 6=Modified [place] 3=Moderate Assistance 7=Complete IndependenceIRFPAI Quality Coding Scale 6 Independent with activity with or without an assistive device 5 Patient requires set up or clean up by helper. Patient completes activity by themselves 4 Supervision or touching assist (CGA). [place] provide cues , steadying assist 3 The helper provides less than half the effort to complete the activity 2 The helper provides more than half the effort to complete the activity 1 Dependent. The helper does all the effort to complete an activity 7 Patient refused to complete or attempt activity 9 The patient did not perform the activity before the current illness or injury 88 Not attempted due to Medical conditions or safety concerns Transfers (B, C, W/C) (FIM): 5 Roll Left to Right (QC): 5 Supine to/from Sit: 5 Sit to/from Stand: 5 Sit to Lying (QC): 5 Lying to Sitting/Side of Bed(Q: 5 Sit to Stand (QC): 5 Chair/[id number]-Tbcqr Xfer(QC): 5 Car Transfer (QC): 4 (min assist) SBA with all FIM transfers; occas verbal cues for sequencing for optimal safety.l Gait Does the Patient Walk?: Yes Mode of Locomotion: Walk Anticipated Mode of Locomotion: Walk Gait (FIM): 4 Distance (FIM): 3=150 ft Walk 10 feet (QC): 4 Walk 50 ft with 2 Turns(QC): 4 Walk 150 ft (QC): 4 Walking 10ft/uneven surface-QC: 4 Gait Assistive Device: Cane Large Base Quad Comments/Gait Description CGA intermittently for safety. Pt ambulated 150 ft x 3 reps with FWW with CGA. Wheelchair Training Does the Pt Use a Wheelchair?: No Stairs Stairs (FIM): 1 #of Steps: 1 Level of Assist: 4 1 Step (curb) (QC): 4 (CGA for safety) 4 Steps (QC): 88 Assistive Device: Walker 12 Steps (QC): 88 Balance Sitting Static: Good Sitting Dynamic: Good Standing Static: Good Standing Dynamic: Good Picking up an Object (QC): 88 Treatment Gait and transfer training for correct sequencing and safety. Worked on upright posture during gait and addressing safety techniques. Nu Step x 10 minutes, which patient reports decreased her pain while riding it. Nu Step used to increase functional activity tolerance for self management at home and pain relief. Assessment/Needs Presents post kyphoplasty. Pt is fairly high level status at evaluation, but lives alone and needs to be fully indep before discharging home alone. Pt does seem to have increased pain and slight limited functional act tolerance. She will benefit from skilled therapy services to work on her safety, strength and ability to manage herself at home. Co morbidities: pancreatic ca, HTN, DDD, pain; structures involved: functional transfers, functional gait, functional activity tolerance; and her status is evolving due to recent surgery Rehab Potential: Good PT Short Term Goals Short Term Goals Time Frame: Feb 13, 2017 Transfers (B,C,W/C) (FIM): 6 Gait (FIM): 5 PT Primary Care Sales Representative Goals Primary Care Sales Representative Goals PT Fpc Goals Time Frame: Feb 19, 2017 Transfers (B,C,W/C) (FIM): 7 Sit to Lying (QC): 6 Lying-Sitting on Side/Bed(QC): 6 Sit to Stand (QC): 6 Roll Left to Right (QC): 6 Chair/[id number]-Zttqo Xfer(QC): 6 Car Transfer (QC): 6 Does the Patient Walk: Yes Gait (FIM): 6 Gait distance (FIM): 3=150 ft Walk 10 feet (QC): 6 Walk 10ft-Uneven Surface(QC): 6 Walk 50ft with 2 Turns (QC): 6 Walk 150 ft (QC): 6 Gait Level of Assist: 6 Gait Assistive Device: FWW Does the Pt use WC or Scooter?: No Stairs (FIM): 5 (household) # of Steps: 8 1 Step (curb) (QC): 6 4 Steps (QC): 6 12 Steps (QC): 88 Picking up an Object (QC): 88 LTG's are set to allow pt to return home fully mod indep and be able to manage all functional mobility and pain without assit. PT Plan Problem List Problem List: Activity Tolerance, Functional Strength, Safety, Balance, Gait, Transfer, Bed Mobility Treatment/Plan Treatment Plan: Continue Plan of Care Treatment Plan: Bed Mobility, Education, Functional Activity Yordy, Functional Strength, Group Therapy, Gait, Safety, Therapeutic Exercise, Transfers Treatment Duration: Feb 19, 2017 # of days/week 5-6 Visits Per Week: 10-15 Pt/Family Agrees w/Plan: Yes Safety Risks/Education Patient Education: Transfer Techniques, Safety Issues Teaching Recipient: Patient Teaching Methods: Discussion Response to Teaching: Reinforcement Needed Discharge Recommendations Therapy D/C Recommendations: Physical Therapy Home Care Time/GCodes Time In: 1150 Time Out: 1230 Total Billed Treatment Time: 40 Total Billed Treatment visit EVM 15 EX 10 GT 15 SKYLA LARA PT Feb 10, 2017 12:41
--- NOTE | 2017-02-10 12:47 | Occupational Therapy Eval ---
OT Evaluation-General/PLF Medical Diagnosis Admission Date Feb 10, 2017 at 11:30 Medical Diagnosis: T10 compression fracture Onset Date: Feb 04, 2017 Therapy Diagnosis Therapy Diagnosis: decreased self care skills Height/Weight Height (Feet): 5 Height (Inches): 9.00 Weight (Pounds): 179 Weight (Ounces): 11.2 Weight Bear Status Location Restriction: LE Bilateral Referral Physician: New Medical History Pertinent Medical History: Arthritis, GERD, HTN Additional Medical History DVT, PVD, Bilateral fem-pop, DDD, pancreatic cancer Current History Pt reports she hurt her back while carrying groceries into the house. Pt found to have T10 compression fracture. Pt had kyphoplasty on 02/08 Social History Home: Single Level Current Living Status: Alone Entry Into Home: Ramp Pt states daughter lives nearby and checks on her as needed ADL-Prior Level of Function ADL PLOF Comments Pt reports being independent with self care and mobility. Uses FWW. Pt drives and does the shopping. DME/Equipment: Toilet/Riser Pt states she only does sponge baths at home. Does not have a working shower. Drive Self: Yes OT Current Status Subjective Pt agreeable to treatment. Reports back pain, states she's had her pain medication. Mental Status/Objective Patient Orientation: Person, Place, Situation Current Glasses/Contacts: Yes (reading) Hearing Aids: No Dentures/Partials: Yes Hand Dominance: Right Upper Extremity ROM Grossly WFL Upper Extremity Coordination Intact Upper Extremity Sensation Intact per pt report ADL-Treatment ADL-Current Pt supine to sit with SBA. Transfer with supervision using FWW. Pt states she already had a sponge bath this morning with assist from nursing. Gait to restroom with FWW. Pt transferred to toilet with SBA. Pt able to manage clothing and toileting hygiene with SBA. Sit to stand from toilet with supervision using grab bar. Pt stood at sink to wash hands with supervision. Sitting in chair with PT present for treatment after session. Functional [place] Measure 0=Not Assessed/NA 4=Minimal Assistance 1=Total Assistance 5=Supervision or Setup 2=Maximal Assistance 6=Modified [place] 3=Moderate Assistance 7=Complete IndependenceIRFPAI Quality Coding Scale 6 Independent with activity with or without an assistive device 5 Patient requires set up or clean up by helper. Patient completes activity by themselves 4 Supervision or touching assist (CGA). [place] provide cues , steadying assist 3 The helper provides less than half the effort to complete the activity 2 The helper provides more than half the effort to complete the activity 1 Dependent. The helper does all the effort to complete an activity 7 Patient refused to complete or attempt activity 9 The patient did not perform the activity before the current illness or injury 88 Not attempted due to Medical conditions or safety concerns Toileting (FIM): 5 Toileting Hygiene (QC): 4 Toilet/Commode Transfer (FIM): 5 Toilet Transfer (QC): 4 Education OT Patient Education: Rehab process Teaching Recipient: Patient Teaching Methods: Discussion Response to Teaching: Verbalize Understanding OT Short Term Goals Short Term Goals 1=Demonstrate adherence to instructed precautions during ADL tasks. 2=Patient will verbalize/demonstrate understanding of assistive devices/ modifications for ADL. 3=Patient will improve strength/tolerance for activity to enable patient to perform ADL's. OT Residential Goals Residential Goals Time Frame: Feb 24, 2017 Eating (FIM): 6 Eating (QC): 6 Groomin Oral Hygiene (QC): 6 Bathing(FIM): 6 Shower/Bathe Self (QC): 6 Upper Body Dressing(FIM): 6 Upper Body Dressing (QC): 6 Lower Body Dressing(FIM): 6 Lower Body Dressing (QC): 6 On/Off Footwear (QC): 6 Toileting(FIM): 6 Toileting Hygiene (QC): 6 Toilet/Commode Transfer(FIM): 6 Toilet/Commode Transfer (QC): 6 Shower Transfer(FIM): 6 Additional Goals: 1-Demonstrate ADL Tasks, 2-Verbalize Understanding, 3- ImproveStrength/Yordy 1=Demonstrate adherence to instructed precautions during ADL tasks. 2=Patient will verbalize/demonstrate understanding of assistive devices/ modifications for ADL. 3=Patient will improve strength/tolerance for activity to enable patient to perform ADL's. Goals established to promote increased functional level and allow safe return home. OT Education/Plan Problem List/Assessment Assessment: Decreased Activ Tolerance, Decreased UE Strength, Dependent Transfers, Impaired Self-Care Skills Pt s/p T10 kyphoplasty. Pt lives alone and is normally independent with all self care and mobility. Pt to benefit from skilled OT intervention for ADL training, transfers, strengthening, and home safety education to maximize level of function and allow safe return home. Discharge Recommendations Plan/Recommendations: Continue POC Treatment Plan/Plan of Care Treatment,Training & Education: Yes Patient would benefit from OT for education, treatment and training to promote independence in ADL's, mobility, safety and/or upper extremity function for ADL' s. Plan of Care: ADL Retraining, Functional Mobility, Group Exercise/Act as Ind, UE Funct Exercise/Act Treatment Duration: Feb 24, 2017 # of days/week 5-6 Minutes/Day (M-F): 60-90 Minutes/Day (Sat/Nunes): PRN Agreement: Yes Rehab Potential: Good Time/GCodes Start Time: 11:30 Stop Time: 11:50 Total Time Billed (hr/min): 20 Billed Treatment Time 1 visit, SERGIO(20minutes) CECE LANDEROS OT Feb 10, 2017 12:47
--- NOTE | 2017-02-10 14:36 | Therapy Group Daily Note ---
Therapy Daily Group Note Patient Education Topic Fall Prevention Exercises LE Seated Exercise, UE Exercise Other/Notes Pt was an active participant in OT/PT group. She introduced herself to the group for socialization and participated in education/discussion on fall prevention and home safety. At the end of the discussion, she was able to identify at least one change that she has made or will make in her home to be safer. She also did seated UE and LE exercises and walked back to her room CGA, FWW. She transferred into bed with SBA and was left with all needs met, 4 rails up. Start Time: 13:00 Stop Time: 14:15 Total Billed Treatment Time: 75 Total Billed Treatment visit, group 75 minutes HENRIQUE ABARCA OT Feb 10, 2017 14:36
--- NOTE | 2017-02-10 14:50 | Occupational Ther Daily Note ---
OT Current Status-Daily Note Subjective Pt in bed, agrees to treatment. Pt reports 3/10 back pain. Mental Status/Objective Functional [place] Measure 0=Not Assessed/NA 4=Minimal Assistance 1=Total Assistance 5=Supervision or Setup 2=Maximal Assistance 6=Modified [place] 3=Moderate Assistance 7=Complete [place] ADL-Treatment Supine to sit with supervision. Sit to stand with supervision. Pt donned robe with set up. Dons slippers with set up. Gait to restroom with FWW. Pt stood at sink for grooming tasks. Pt brushed hair, washed face, and combed hair with SBA. Pt states she soaks dentures at night and has no difficulty removing/ replacing dentures. Functional [place] Measure 0=Not Assessed/NA 4=Minimal Assistance 1=Total Assistance 5=Supervision or Setup 2=Maximal Assistance 6=Modified [place] 3=Moderate Assistance 7=Complete IndependenceIRFPAI Quality Coding Scale 6 Independent with activity with or without an assistive device 5 Patient requires set up or clean up by helper. Patient completes activity by themselves 4 Supervision or touching assist (CGA). Early provide cues , steadying assist 3 The helper provides less than half the effort to complete the activity 2 The helper provides more than half the effort to complete the activity 1 Dependent. The helper does all the effort to complete an activity 7 Patient refused to complete or attempt activity 9 The patient did not perform the activity before the current illness or injury 88 Not attempted due to Medical conditions or safety concerns Eating (FIM): 6 (Pt reports feeding self, cutting food, and managing packages without assistance) Eating (QC): 6 Grooming (FIM): 5 Oral Hygiene (QC): 5 Other Treatment Gait to therapy gym with FWW and slow pace. No LOB noted. Graded clothespin activity with bilateral hands to increase goal umpire/pinch strength. Pt performed bilateral UE AROM exercises x10 reps with dowel sunitha for shoulder flexion, biceps curls, and wrist flexion/extension to increase strength and activity tolerance needed for functional tasks. Pt returned to room, performed sit to supine with SBA. Pt in bed with needs met after session. OT Short Term Goals Short Term Goals Transfers (B,C,W/C) (FIM): 6 1=Demonstrate adherence to instructed precautions during ADL tasks. 2=Patient will verbalize/demonstrate understanding of assistive devices/ modifications for ADL. 3=Patient will improve strength/tolerance for activity to enable patient to perform ADL's. OT Long-Term Goals Coating Mixer Tender Goals Time Frame: Feb 24, 2017 Eating (FIM): 6 Eating (QC): 6 Groomin Oral Hygiene (QC): 6 Bathing(FIM): 6 Shower/Bathe Self (QC): 6 Upper Body Dressing(FIM): 6 Upper Body Dressing (QC): 6 Lower Body Dressing(FIM): 6 Lower Body Dressing (QC): 6 On/Off Footwear (QC): 6 Toileting(FIM): 6 Toileting Hygiene (QC): 6 Toilet/Commode Transfer(FIM): 6 Toilet/Commode Transfer (QC): 6 Shower Transfer(FIM): 6 Additional Goals: 1-Demonstrate ADL Tasks, 2-Verbalize Understanding, 3- ImproveStrength/Yordy 1=Demonstrate adherence to instructed precautions during ADL tasks. 2=Patient will verbalize/demonstrate understanding of assistive devices/ modifications for ADL. 3=Patient will improve strength/tolerance for activity to enable patient to perform ADL's. OT Education/Plan Problem List/Assessment Pt s/p T10 kyphoplasty. Pt lives alone and is normally independent with all self care and mobility. Pt to benefit from skilled OT intervention for ADL training, transfers, strengthening, and home safety education to maximize level of function and allow safe return home. Discharge Recommendations Plan/Recommendations: Continue POC Treatment Plan/Plan of Care Patient would benefit from OT for education, treatment and training to promote independence in ADL's, mobility, safety and/or upper extremity function for ADL' s. Plan of Care: ADL Retraining, Functional Mobility, Group Exercise/Act as Ind, UE Funct Exercise/Act Treatment Duration: Feb 24, 2017 Minutes/Day (M-F): 60-90 Minutes/Day (Sat/Nunes): PRN Agreement: Yes Rehab Potential: Good Time/GCodes Start Time: 14:15 Stop Time: 14:45 Total Time Billed (hr/min): 30 Billed Treatment Time 1 visit, ADL(15minutes), EX(15minutes) CECE LANDEROS OT Feb 10, 2017 14:50
--- NOTE | 2017-02-10 15:30 | ST Cognitive Linguistic Eval ---
Speech Evaluation-General Medical Diagnosis T10 compression fracture Onset Date: Feb 04, 2017 Therapy Diagnosis Therapy Diagnosis: Cognitive Linguistic Skills WNL Precautions Precautions/Isolations: Fall Prevention, Standard Precautions Referral Referring Physician: Dr. Pelon Wolff Reason for Referral: Evaluation/Treatment Cognitive Evaluation Medical History Pertinent Medical History: Arthritis, GERD, HTN Reviewed History: Yes Social History Current Living Status: Alone Speech PLF-Current Status Prior Level of Function The patient denied prior challenges with speech, language, cognition, or swallowing prior to admission. Subjective The patient was recently admitted to [facility] following a back fracture. The patient greeted the clinician appropriately and agreed to participate in the cognitive evaluation on this date. Language Eval: Auditory Comprehends Simple Yes/No Ques: Functional Indent/Objects Multiple Fish: Functional Ident/Pics in Multiple Fish: Functional Follows 1-Step Commands: Functional Follows Complex Directions: Functional Follows General Conversations: Functional Language Eval: Verbal Language Completes Spontaneous Greeting: Functional Produces Auto, Serial Info: Functional Imitates Simple Words/Phrases: Functional Word Finding: Functional Requests Basic Needs: Functional States Basic Personal Info: Functional Expresses Complex Ideas: Functional Cognitive Patient Orientation The patient is oriented to month, date, day of week, year, and location independently. Objective Cognitive Domain Attention: WNL Memory: WNL Problem Solving: Functional Executive Functions: WNL Objective Impression The patient demonstrated cognitive linguistic skills grossly within normal limits and appropriate for completion of ADL's. Communication/Social Cognition Comprehension: 6 Expression: 6 Social Interaction: 6 Problem Solvin Memory: 6 Speech Patient Assess Expression of Ideas/Wants: Expression (4) Understanding [place] Content: Understands (4) Brief Interview-Mental Status: Yes Repetition of Three Words: Three (3) Temporal Orientation: Year: Correct (3) Temporal Orientation: Month: Accurate within 5 days(2) Temporal Orientation: Day: Correct (1) Recall : Wear to say "Sock": Yes, no cue required (2) Recall : Color: Yes, after cueing (1) Recall : Bed: Yes, no cue required (2) Speech-Plan Treatment Plan Speech Therapy Treatment Plan: Discontinue ST Evaluation, only. Rehab Potential: Good Safety Risks/Education Teaching Recipient: Patient Teaching Methods: Discussion Response to Teaching: Verbalize Understanding Education Topics Provided: Plan of Care, Results, Recommendations Time Speech Therapy Time In: 14:50 Speech Therapy Time Out: 15:05 Total Billed Time: 15 Billed Treatment Time 1, FADI AHN Feb 10, 2017 15:30
[2017-02-10 18:00] VITALS: BP 123/68
[2017-02-10] MEDS: doxAzosin 2 MG (CARDURA) TAB PO SCH (21:02)
[2017-02-10] MEDS: meTOproloL SUCCINATE 50 MG (TOPROL XL) TAB PO SCH (21:02)
[2017-02-11 05:54] VITALS: BP 120/65
--- NOTE | 2017-02-11 07:15 | HISTORY AND PHYSICAL ---
DATE OF ADMISSION: 02/10/2017 CHIEF COMPLAINT: Difficulty with walking. HISTORY OF PRESENT ILLNESS: The patient is a 81-year-old female with known diagnosis of pancreatic cancer,who was admitted for intractable back pain to [facility] for further evaluation and pain management. A T10 compression fracture was found. The patient was provided with pain management. The patient was seen by Ortho Sp[facility] and provided with kyphoplasty with some improvement. The patient has had a decline in functional independence due to this. She had been modified independent with a walker and living alone prior to this. She does have a daughter in [place] and a son in [place] to look in on her. She is a recent , her spouse this past September. The patient is now referred to Inpatient Rehabilitation Unit with goal of maximizing level of functional dependence prior to discharge home with home health care. Currently, the patient requires assistance for her ADLs and mobility skills. She is utilizing fentanyl patch for prolonged pain relief and OxyIR for breakthrough pain, as well as Lortab p.r.n. moderate pain. Diazepam p.r.n. for anxiety and Zofran p.r.n. nausea, vomiting. CBC on 02/09 showed WBC 9.7, RBC 2.96, hemoglobin and hematocrit 9.5/28, platelet count 243,000. Chemistry on 02/08 showed blood glucose 85, glucometer 183, calcium 8.4, BNP 5/3.2, albumin 2.8, triglycerides 101, cholesterol 2/19, LDL cholesterol 139 elevated, alkaline phosphatase normal, 77. Currently she is standby assist for transfers. Min assist for ambulation with a large base quad cane or contact guard or ambulation with a front wheel walker. She reports pain 5/10 status post kyphoplasty, improving. The patient is min assist for toileting. Set up for eating and grooming. Mod assist for lower body dressing. Min assist for upper body dressing and toileting. Past MEDICAL HISTORY: 1. Peripheral vascular disease. Cerebrovascular sedation surgery in the past left leg with Dr. Baca. 2. Hypertension. 3. DVT. 4. History of pancreatic cancer. PAST SURGICAL HISTORY: 1. Vascular surgery at per above. 2. Kyphoplasty. ALLERGIES: 1. CODEINE. 2. MEPERIDINE. 3. MORPHINE. FAMILY HISTORY: Noncontributory. SOCIAL HISTORY: Essentially as per above. She lives in a single story home, has a supportive family nearby. PCP Ang Reese. REVIEW OF SYSTEMS: Ten-point review of systems significant for a back pain. MEDICATIONS: 1. Furosemide 20 mg p.o. every other day. 2. Lisinopril 40 mg p.o. daily. 3. Calcitonin one spray in each nostril daily. 4. Lovenox 40 mg subcutaneous daily for DVT prophylaxis. 5. Duragesic patch 25 mcg q.3 days. 6. Cardura 2 mg p.o. b.i.d. 7. Metoprolol 150 mg p.o. daily at bedtime. 8. OxyIR 5 mg p.o. q.4 hours p.r.n. severe pain. 9. Hydrocodone 5, 1 to 2 tablets p.o. q.4 hours p.r.n. moderate pain. 10. Diazepam 5 mg p.o. daily at bedtime for anxiety. 11. Zofran 8 mg p.o. q.8 hours p.r.n. nausea, vomiting. PHYSICAL EXAMINATION: Significant for a pleasant female, appearing her stated age, lying in bed in no acute distress. VITAL SIGNS: Blood pressure 120/70, respirations 16, O2 sat 96% on room air, pulse 84. HEENT: Vision, speech, hearing, grossly intact. No oral lesion is noted. NECK: Supple without mass. HEART: Regular rhythm. CHEST: Clear. ABDOMEN: Soft, nontender. Bowel sounds present. EXTREMITIES: No lower edema. No calf tenderness. MUSCULOSKELETAL: She has mild tenderness to palpation of the T10 vertebrae. She has functional active range of motion in all 4 limbs. NEUROLOGIC: Sensation is grossly intact to touch. Cognition is intact, strength generally 4/5 with some guarding due to increased back pain with movement and standing. IMPRESSION: 1. Ambulatory dysfunction secondary to T10 compression fracture, status post kyphoplasty, [facility], improving. 2. History of pancreatic cancer followed by [facility] with chemotherapy. 3. Hypertension, controlled with medication. 4. 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 5. Peripheral vascular disease, status post revascularization procedure with Dr. Baca, left leg. 6. GERD, on medication. PLAN: The patient will have a program of inpatient rehabilitation with a goal of maximizing level of functional dependence prior to discharge home with home health and family. The patient will have PT/OT 90 minutes per day, each discipline, 5 days a week for gait strengthening, conditioning, balance, ADLs, any patient/family/caregiver training necessary, any adaptive equipment and training necessary, modalities for pain management as needed. Speech therapy has assessed and signed off. They found her to be cognitively intact. Rehabilitation nursing assist with bowel, bladder, skin care, medication administration, pain management. office services manager assist with discharge planning, community reentry. Follow-up with Dr. Reese and Ortho Spine and medical oncology as per their schedules. ESTIMATED LENGTH OF STAY: One to 2 weeks. PROGNOSIS: Rehab prognosis appears good for goal of discharging home with family and home health care, hopefully modified independent to supervision for ADLs and mobility skills with decreased pain. DIET: Regular. CODE STATUS: FULL code. POST ADMISSION PHYSICIAN ASSESSMENT: The preadmission screen agrees with the post admission assessment that the patient is a good candidate for inpatient rehabilitation. She appears to be well motivated to participate in 3 hours of therapy a day. She should be able tolerate 3 hours of therapy a day from a medical and orthopedic standpoint. She should benefit from 3 hours of therapy a day. She has reasonable discharge plan, reasonable discharge rehabilitation goals and a supportive family. She has various comorbidities that need to be closely monitored with medications and treatments adjusted on a daily basis as needed. These include her hypertension and pain management. BARRIERS TO DISCHARGE: Barriers to discharge for this patient who had been modified independent with a walker prior to this, are for her to be modified independent to supervision for ADLs and mobility skills prior to discharge home with home health care and family so as to lessen the burden of the caregivers. RISKS FOR THIS PATIENT INCLUDE: 1. Fall. 2. Fracture. 3. DVT. 4. Pulmonary embolism. 5. Poorly controlled pain. 6. Poorly controlled hypertension. 7. DVT. 8. Pulmonary embolism. 9. Urinary retention. 10. UTI. 11. Respiratory infection. 12. Aspiration. Job ID: [id number] Dictated Date: 02/10/2017 19:15:34 Paper Testing Supervisor Date: 02/11/2017 06:46:17/haylee PLATA
[2017-02-11] MEDS: HYDROcodone/APAP 5 MG/325 MG (LORTAB) TAB PO PRN (08:17)
[2017-02-11] MEDS: lisINopril 20 MG (ZESTRIL) TAB PO SCH (08:17)
[2017-02-11] MEDS: doxAzosin 2 MG (CARDURA) TAB PO SCH ×2 (08:17→20:07)
[2017-02-11] MEDS: FUROSEMIDE 20 MG (LASIX) TAB PO SCH (08:17)
[2017-02-11] MEDS: PATCH REMOVAL TP SCH (08:18)
[2017-02-11] MEDS: fentaNYL PATCH 25 MCG (DURAGESIC) TD SCH (08:18)
[2017-02-11] MEDS: ENOXAPARIN 40 MG/0.4 ML (LOVENOX) SYR SC SCH (08:18)
--- NOTE | 2017-02-11 08:58 | PM & R (SOAP) Progress Note ---
Subjective Subjective/Events-last exam Patient was seen in her room this AM Progressing well with therapies. Patient SBA for transfers Objective Exam Last Set of Vital Signs Vital Signs Date Time Temp Pulse Resp B/P (MAP) Pulse Ox O2 Delivery O2 Flow Rate FiO2 02/11/17 05:54 97.4 76 18 120/65 95 Room Air Capillary Refill : I&O Bad tableGeneral: Alert, Oriented X3, Cooperative, No Acute Distress HEENT: Atraumatic, PERRLA, EOMI Neck: Supple Lungs: Clear to Auscultation Heart: Regular Rate Abdomen: Normal Bowel Sounds, Soft Extremities: No Edema Neuro: Other (Generalized weakness Back pain decreasing) Assessment/Plan Assessment Ambulatory dysfunction secondary to T-10 compression frx s/p kyphoplasty improving PVD s/p revacularization surgery procedure in the past with DR Casey HX of DVT and PE in the past s/p IVC filter placement HTN controlled HX of pancreatic Ca Plan Continue PT/OT/Pain management F/U with ERICKA Campos MD Feb 11, 2017 08:58
[2017-02-11] MEDS: CALCITONIN NASAL 200 INTLU/AC (FORTICAL) 3.7 ML BTL SCH (09:00)
--- NOTE | 2017-02-11 10:28 | Occupational Ther Daily Note ---
OT Current Status-Daily Note Subjective Pt sitting in chair, agrees to treatment. Pt reports 3/10 back pain, but states she is feeling better today. Mental Status/Objective Functional [place] Measure 0=Not Assessed/NA 4=Minimal Assistance 1=Total Assistance 5=Supervision or Setup 2=Maximal Assistance 6=Modified [place] 3=Moderate Assistance 7=Complete [place] ADL-Treatment Pt sit to stand with supervision. Gait to restroom with FWW. Pt declined shower , states she took a shower while on acute and got water in her ears which caused discomfort. Pt states she only does sponge baths at home. Pt completed sponge bath while seated at sink. Pt able to wash/dry all areas with set up. Don pullover shirt with set up. Pt donned underwear and pants with set up. Dons slip on shoes with set up. Increased time for bathing/dressing tasks. Grooming completed standing at sink. Pt brushed hair and completed denture care with set up. Pt performed gait to laundry room with FWW, no LOB noted. Assist to carry laundry, but pt then able to place clothes in washer and manage settings with SBA. Pt returned to room and transferred to chair with SBA. Pt sitting in chair with needs met after session. Functional [place] Measure 0=Not Assessed/NA 4=Minimal Assistance 1=Total Assistance 5=Supervision or Setup 2=Maximal Assistance 6=Modified [place] 3=Moderate Assistance 7=Complete IndependenceIRFPAI Quality Coding Scale 6 Independent with activity with or without an assistive device 5 Patient requires set up or clean up by helper. Patient completes activity by themselves 4 Supervision or touching assist (CGA). [place] provide cues , steadying assist 3 The helper provides less than half the effort to complete the activity 2 The helper provides more than half the effort to complete the activity 1 Dependent. The helper does all the effort to complete an activity 7 Patient refused to complete or attempt activity 9 The patient did not perform the activity before the current illness or injury 88 Not attempted due to Medical conditions or safety concerns Grooming (FIM): 5 Oral Hygiene (QC): 5 Bathing (FIM): 5 Shower/Bathe Self (QC): 5 Upper Body (FIM): 5 Upper Body Dressing (QC): 5 Lower Body Dressing (FIM): 5 Lower Body Dressing (QC): 5 On/Off Footwear (QC): 5 OT Short Term Goals Short Term Goals Transfers (B,C,W/C) (FIM): 6 1=Demonstrate adherence to instructed precautions during ADL tasks. 2=Patient will verbalize/demonstrate understanding of assistive devices/ modifications for ADL. 3=Patient will improve strength/tolerance for activity to enable patient to perform ADL's. OT Alf Goals Alf Goals Time Frame: Feb 24, 2017 Eating (FIM): 6 Eating (QC): 6 Groomin Oral Hygiene (QC): 6 Bathing(FIM): 6 Shower/Bathe Self (QC): 6 Upper Body Dressing(FIM): 6 Upper Body Dressing (QC): 6 Lower Body Dressing(FIM): 6 Lower Body Dressing (QC): 6 On/Off Footwear (QC): 6 Toileting(FIM): 6 Toileting Hygiene (QC): 6 Toilet/Commode Transfer(FIM): 6 Toilet/Commode Transfer (QC): 6 Shower Transfer(FIM): 6 Additional Goals: 1-Demonstrate ADL Tasks, 2-Verbalize Understanding, 3- ImproveStrength/Yordy 1=Demonstrate adherence to instructed precautions during ADL tasks. 2=Patient will verbalize/demonstrate understanding of assistive devices/ modifications for ADL. 3=Patient will improve strength/tolerance for activity to enable patient to perform ADL's. OT Education/Plan Problem List/Assessment Pt s/p T10 kyphoplasty. Pt lives alone and is normally independent with all self care and mobility. Pt to benefit from skilled OT intervention for ADL training, transfers, strengthening, and home safety education to maximize level of function and allow safe return home. Discharge Recommendations Plan/Recommendations: Continue POC Treatment Plan/Plan of Care Patient would benefit from OT for education, treatment and training to promote independence in ADL's, mobility, safety and/or upper extremity function for ADL' s. Plan of Care: ADL Retraining, Functional Mobility, Group Exercise/Act as Ind, UE Funct Exercise/Act Treatment Duration: Feb 24, 2017 Minutes/Day (M-F): 60-90 Minutes/Day (Sat/Nunes): PRN Agreement: Yes Rehab Potential: Good Time/GCodes Start Time: 09:15 Stop Time: 10:15 Total Time Billed (hr/min): 60 Billed Treatment Time 1 visit, ADLx4(60minutes) CECE LANDEROS OT Feb 11, 2017 10:28
--- NOTE | 2017-02-11 11:10 | Physician Query ---
PQ-Further Specificity Admission/Discharge Admission Date: Feb 10, 2017 at 11:30 Discharge Date: The medical record reflects the following clinical scenario: History/Risk Factors: PANCREATIC CA Clinical Findings: T10 COMPRESSION FX Treatment: KYPHOPLASTY Question: Can you further specify T10 Compression fracture per the clinical indicators above? Please document below. 1. T10 Compression fracture, nontraumatic 2. T10 Compression fracture due to trauma 3. Other, with explanation of the clinical findings. 4. Clinically undetermined, no explanation for the clinical findings. PHYSICIAN RESPONSE Explanation/Clinical Findings T -10 compression frx due to trauma Please remember a lack of response to the above will prompt a phone page by CDI/ coding staff. In responding to this query, please exercise your independent professional judgment. The purpose of this communication is to more accurately reflect the complexity of your patients condition. The fact that a question is asked does not imply that any particular answer is desired or expected. Thank you for your timely response to this clarification. Requestors name: Laxmi THIS PHYSICIAN QUERY FORM IS A PERMANENT PART OF THE MEDICAL RECORD LAXMI SHEPARD Feb 11, 2017 11:10 ERICKA MONTGOMERY MD Feb 12, 2017 07:18
--- NOTE | 2017-02-11 11:18 | Physical Therapy Daily Note ---
PT Daily Note-Current Subjective Agrees to PT. Mental Status Patient Orientation: Person, Place, Time, Situation Transfers Functional [place] Measure 0=Not Assessed/NA 4=Minimal Assistance 1=Total Assistance 5=Supervision or Setup 2=Maximal Assistance 6=Modified [place] 3=Moderate Assistance 7=Complete IndependenceIRFPAI Quality Coding Scale 6 Independent with activity with or without an assistive device 5 Patient requires set up or clean up by helper. Patient completes activity by themselves 4 Supervision or touching assist (CGA). [place] provide cues , steadying assist 3 The helper provides less than half the effort to complete the activity 2 The helper provides more than half the effort to complete the activity 1 Dependent. The helper does all the effort to complete an activity 7 Patient refused to complete or attempt activity 9 The patient did not perform the activity before the current illness or injury 88 Not attempted due to Medical conditions or safety concerns Pt able to perform sit to from stand with SBA for all functional transfers. She also performed practice sit to from stand 2 sets of 5 for functional strengthening. Gait Training Does the Patient Walk?: Yes Gait (FIM): 5 Distance (FIM): 3=150 ft Distance: 150 ft x 4 reps with rest breaks in between Gait Assistive Device: FWW Worked on functional upright posture and improved foot clearance as pt tends to slide feet. Corrects with cuing but returns to shuffle with time. Worked on turning safety and walking in small areas to simulate gait in a home. Exercises Seated Therapy Exercises: Ankle pumps, Long arc quads, Hip flexion, Hamstring Curls Seated Reps: 15 Standing: Hamstring curls, Heel/toe raises, 3 way Ex=Flex, Abd, Ext, Marching, Mini squats Standing Reps: 15 All exercises performed to improve LE strength to enhance gait and transfers and progress her functional act tolerance so she is able to return home and care for herself. Assessment Current Status: Good Progress Progressing well. Needs intermittent cues for safety with gait. PT Short Term Goals Short Term Goals Time Frame: Feb 13, 2017 Transfers (B,C,W/C) (FIM): 6 Gait (FIM): 5 PT Mcc Goals Vegetable Cook Goals PT Vegetable Cook Goals Time Frame: Feb 19, 2017 Transfers (B,C,W/C) (FIM): 7 Sit to Lying (QC): 6 Lying-Sitting on Side/Bed(QC): 6 Sit to Stand (QC): 6 Roll Left to Right (QC): 6 Chair/Efc-xf-Ymdrk Xfer(QC): 6 Car Transfer (QC): 6 Does the Patient Walk: Yes Gait (FIM): 6 Gait distance (FIM): 3=150 ft Walk 10 feet (QC): 6 Walk 10ft-Uneven Surface(QC): 6 Walk 50ft with 2 Turns (QC): 6 Walk 150 ft (QC): 6 Gait Level of Assist: 6 Gait Assistive Device: FWW Does the Pt use WC or Scooter?: No Stairs (FIM): 5 (household) # of Steps: 8 1 Step (curb) (QC): 6 4 Steps (QC): 6 12 Steps (QC): 88 Picking up an Object (QC): 88 PT Plan Problem List Problem List: Activity Tolerance, Functional Strength, Safety, Gait, Transfer Treatment/Plan Treatment Plan: Continue Plan of Care Treatment Plan: Bed Mobility, Education, Functional Activity Yordy, Functional Strength, Group Therapy, Gait, Safety, Therapeutic Exercise, Transfers Treatment Duration: Feb 19, 2017 Visits Per Week: 10-15 Safety Risks/Education Patient Education: Gait Training, Safety Issues Teaching Recipient: Patient Teaching Methods: Discussion Response to Teaching: Return Demonstration, Reinforcement Needed Time/GCodes Time In: 1015 Time Out: 1115 Total Billed Treatment Time: 60 Total Billed Treatment visit GT 30 EX 30 SKYLA LARA PT Feb 11, 2017 11:18
--- NOTE | 2017-02-11 12:06 | Occupational Ther Daily Note ---
OT Current Status-Daily Note Subjective Pt in bed, agrees to treatment. Mental Status/Objective Functional [place] Measure 0=Not Assessed/NA 4=Minimal Assistance 1=Total Assistance 5=Supervision or Setup 2=Maximal Assistance 6=Modified [place] 3=Moderate Assistance 7=Complete [place] ADL-Treatment Functional [place] Measure 0=Not Assessed/NA 4=Minimal Assistance 1=Total Assistance 5=Supervision or Setup 2=Maximal Assistance 6=Modified [place] 3=Moderate Assistance 7=Complete IndependenceIRFPAI Quality Coding Scale 6 Independent with activity with or without an assistive device 5 Patient requires set up or clean up by helper. Patient completes activity by themselves 4 Supervision or touching assist (CGA). [place] provide cues , steadying assist 3 The helper provides less than half the effort to complete the activity 2 The helper provides more than half the effort to complete the activity 1 Dependent. The helper does all the effort to complete an activity 7 Patient refused to complete or attempt activity 9 The patient did not perform the activity before the current illness or injury 88 Not attempted due to Medical conditions or safety concerns Other Treatment Supine to sit with SBA. Pt donned robe with set up while seated EOB. Sit to stand with SBA. Gait to therapy gym with FWW, no LOB noted. Pt completed arm arc activity with bilateral UE to increase functional strength and activity tolerance. Pt completed fine motor activity with nuts and bolts with bilateral hands to increase coordination/manipulation skills. Pt completed task within normal amount of time. Pt completed peg activity with bilateral UE to increase reaching and fine motor skills needed for functional tasks. Pt returned to room , transferred to bed with SBA. In bed with needs met after session. OT Short Term Goals Short Term Goals Transfers (B,C,W/C) (FIM): 6 1=Demonstrate adherence to instructed precautions during ADL tasks. 2=Patient will verbalize/demonstrate understanding of assistive devices/ modifications for ADL. 3=Patient will improve strength/tolerance for activity to enable patient to perform ADL's. OT Manager Reading Goals Manager Reading Goals Time Frame: Feb 24, 2017 Eating (FIM): 6 Eating (QC): 6 Groomin Oral Hygiene (QC): 6 Bathing(FIM): 6 Shower/Bathe Self (QC): 6 Upper Body Dressing(FIM): 6 Upper Body Dressing (QC): 6 Lower Body Dressing(FIM): 6 Lower Body Dressing (QC): 6 On/Off Footwear (QC): 6 Toileting(FIM): 6 Toileting Hygiene (QC): 6 Toilet/Commode Transfer(FIM): 6 Toilet/Commode Transfer (QC): 6 Shower Transfer(FIM): 6 Additional Goals: 1-Demonstrate ADL Tasks, 2-Verbalize Understanding, 3- ImproveStrength/Yordy 1=Demonstrate adherence to instructed precautions during ADL tasks. 2=Patient will verbalize/demonstrate understanding of assistive devices/ modifications for ADL. 3=Patient will improve strength/tolerance for activity to enable patient to perform ADL's. OT Education/Plan Discharge Recommendations Plan/Recommendations: Continue POC Treatment Plan/Plan of Care Patient would benefit from OT for education, treatment and training to promote independence in ADL's, mobility, safety and/or upper extremity function for ADL' s. Plan of Care: ADL Retraining, Functional Mobility, Group Exercise/Act as Ind, UE Funct Exercise/Act Treatment Duration: Feb 24, 2017 Minutes/Day (M-F): 60-90 Minutes/Day (Sat/Nunes): PRN Agreement: Yes Rehab Potential: Good Time/GCodes Start Time: 11:30 Stop Time: 12:00 Total Time Billed (hr/min): 30 Billed Treatment Time 1 visit, EXx2(30minutes) CECE LANDEROS OT Feb 11, 2017 12:06
--- NOTE | 2017-02-11 15:01 | Physical Therapy Daily Note ---
PT Daily Note-Current Subjective Agreeable. Reports she likes the Nu Step Mental Status Patient Orientation: Person, Place, Time, Situation Transfers Functional [place] Measure 0=Not Assessed/NA 4=Minimal Assistance 1=Total Assistance 5=Supervision or Setup 2=Maximal Assistance 6=Modified [place] 3=Moderate Assistance 7=Complete IndependenceIRFPAI Quality Coding Scale 6 Independent with activity with or without an assistive device 5 Patient requires set up or clean up by helper. Patient completes activity by themselves 4 Supervision or touching assist (CGA). [place] provide cues , steadying assist 3 The helper provides less than half the effort to complete the activity 2 The helper provides more than half the effort to complete the activity 1 Dependent. The helper does all the effort to complete an activity 7 Patient refused to complete or attempt activity 9 The patient did not perform the activity before the current illness or injury 88 Not attempted due to Medical conditions or safety concerns Treatments SBA with sup to sit EOB and to stand. Gt x 250 ft with FWW with SBA. Nu step x 15 minutes for functional LE strength and activity tolerance to promote gait and safety in her home. Gait an additional 250 ft and then 150 ft with FWW with SBA. Pt in room post treatment with needs met. Assessment Current Status: Good Progress PT Short Term Goals Short Term Goals Time Frame: Feb 13, 2017 Transfers (B,C,W/C) (FIM): 6 Gait (FIM): 5 PT Cracking Machine Operator Goals Cracking Machine Operator Goals PT Cracking Machine Operator Goals Time Frame: Feb 19, 2017 Transfers (B,C,W/C) (FIM): 7 Sit to Lying (QC): 6 Lying-Sitting on Side/Bed(QC): 6 Sit to Stand (QC): 6 Roll Left to Right (QC): 6 Chair/Uwt-so-Ugytz Xfer(QC): 6 Car Transfer (QC): 6 Does the Patient Walk: Yes Gait (FIM): 6 Gait distance (FIM): 3=150 ft Walk 10 feet (QC): 6 Walk 10ft-Uneven Surface(QC): 6 Walk 50ft with 2 Turns (QC): 6 Walk 150 ft (QC): 6 Gait Level of Assist: 6 Gait Assistive Device: FWW Does the Pt use WC or Scooter?: No Stairs (FIM): 5 (household) # of Steps: 8 1 Step (curb) (QC): 6 4 Steps (QC): 6 12 Steps (QC): 88 Picking up an Object (QC): 88 PT Plan Problem List Problem List: Activity Tolerance, Functional Strength Treatment/Plan Treatment Plan: Continue Plan of Care Treatment Plan: Bed Mobility, Education, Functional Activity Yordy, Functional Strength, Group Therapy, Gait, Safety, Therapeutic Exercise, Transfers Treatment Duration: Feb 19, 2017 Visits Per Week: 10-15 Time/GCodes Time In: 1415 Time Out: 1445 Total Billed Treatment Time: 30 Total Billed Treatment visit EX 15 GT 15 SKYLA LARA PT Feb 11, 2017 15:01
[2017-02-11 19:00] VITALS: BP 109/75
[2017-02-11] MEDS: meTOproloL SUCCINATE 50 MG (TOPROL XL) TAB PO SCH (20:07)
[2017-02-12 05:00] VITALS: BP 100/57
--- NOTE | 2017-02-12 07:16 | Individualized Plan of Care ---
Individualized Plan of Care Rehab Nursing IPOC Order Admission Date Feb 10, 2017 at 11:30 Current Orders Orders Patient Visit (02/11/17 ) Gait Training, Ea 15 Min (02/11/17 ) Exercise Therap, Ea 15 Min (02/11/17 ) Toilet every (bladder): (hrs): toilet Q 2 hours while awake PT IPOC Problem List: Activity Tolerance, Functional Strength Treatment Plan: Continue Plan of Care Bed Mobility, Education, Functional Activity Yordy, Functional Strength, Group Therapy, Gait, Safety, Therapeutic Exercise, Transfers Treatment Duration: Feb 19, 2017 Visits Per Week: 10-15 Minutes/Day (M-F): 60-90 Minutes/Day (Sat/Nunes): 15-30 OT IPOC Problems: Decreased Activ Tolerance, Decreased UE Strength, Dependent Transfers , Impaired Self-Care Skills Plan of Care: ADL Retraining, Functional Mobility, Group Exercise/Act as Ind, UE Funct Exercise/Act Treatment Duration: Feb 24, 2017 Visits Per Week: 10-12 Minutes/Day (M-F): 60-90 Minutes/Day (Sat/Nunes): PRN ST IPOC Speech Therapy Treatment Plan: Discontinue ST Physician IPOC Medical Issues being managed closely and that require the 24 hour availability of a physician: pain management HTN GERD Medical Issues: DVT Prophylaxis, Falls Precautions, Pain Management, Wound Care , Other (List) (as per above) Brief Synthesis of Preadmission Screen, Post-Admission Evaluation, and Therapy Evaluations: 81 yo female who had been independent who felt a pop in back after carrying groceries Further eval revealed T10 compression frx requiring admission for pain management and further treatment .Went on to have Kyphoplasty with orthospine with decreased pain Had a decrease in functional Independenc due to this and referred to IRU for further therapies. Medical Prognosis: good Anticipated Length of Stay: 02/24/17 Rehab Goals Modified Independent for adls and mobility skills with decreased pain Anticipated discharge destinat: Home with family and [facility] ERICKA MONTGOMERY MD Feb 12, 2017 07:16
--- NOTE | 2017-02-12 08:01 | PM & R (SOAP) Progress Note ---
Subjective Subjective/Events-last exam Patient was seen in her room this AM Sleeping and eating OK Patient SBA for trsnsfers and gait Pain control adequate Objective Exam Last Set of Vital Signs Vital Signs Date Time Temp Pulse Resp B/P (MAP) Pulse Ox O2 Delivery O2 Flow Rate FiO2 02/12/17 05:00 97.4 61 18 100/57 92 Room Air Capillary Refill : I&O Intake and Output 02/12/17 00:00 Intake Total 950 ml Balance 950 ml Intake Oral 950 ml # Voids 3 # Bowel Movements 1 General: Alert, Oriented X3, Cooperative, No Acute Distress HEENT: Atraumatic, PERRLA, EOMI Neck: Supple Lungs: Clear to Auscultation Heart: Regular Rate Abdomen: Normal Bowel Sounds, Soft Extremities: No Edema Neuro: Other (Generalized weakness Back pain decreasing) Assessment/Plan Assessment Ambulatory dysfunction secondary to T-10 compression frx s/p kyphoplasty improving PVD s/p revacularization surgery procedure in the past with DR Casey 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
[2017-02-12 09:00] VITALS: BP 104/58
--- NOTE | 2017-02-12 09:00 | Physical Therapy Daily Note ---
PT Daily Note-Current Subjective Patient in recliner pre tx, agrees to PT, pleasant and cooperative, has 3/10 pain. Appearance Patient in recliner post tx, with nurse call, phone, tray, all needs met. Has OT right after PT. Mental Status Patient Orientation: Normal For Age Transfers Functional [place] Measure 0=Not Assessed/NA 4=Minimal Assistance 1=Total Assistance 5=Supervision or Setup 2=Maximal Assistance 6=Modified [place] 3=Moderate Assistance 7=Complete IndependenceIRFPAI Quality Coding Scale 6 Independent with activity with or without an assistive device 5 Patient requires set up or clean up by helper. Patient completes activity by themselves 4 Supervision or touching assist (CGA). [place] provide cues , steadying assist 3 The helper provides less than half the effort to complete the activity 2 The helper provides more than half the effort to complete the activity 1 Dependent. The helper does all the effort to complete an activity 7 Patient refused to complete or attempt activity 9 The patient did not perform the activity before the current illness or injury 88 Not attempted due to Medical conditions or safety concerns Transfers (B, C, W/C) (FIM): 5 Sit to/from Stand: 5 appropriate safety and hand placement Gait Training Gait (FIM): 5 Distance: 250'x2 Gait Level of Assist: 5 Gait Persons Needed: 1 Gait Assistive Device: FWW Slow, antalgic Stair Training Stair Training: Handrails/: 2 handrails Stairs (FIM): 2 #of Steps: 8 Stairs: Pattern: Step to Level of Assist: 4 CGA, cues for safety and step placement Exercises Standing: Hip Abduction, Hamstring curls, Heel/toe raises, Marching, Mini squats Standing Reps: 20 LAQ alternating for 5 min NuStep Minutes: 15 NuStep Workload: 4 Treatments transfers, ambulation, functional strengthening, stair training, gait training Assessment Current Status: Fair Progress improving endurance, less pain PT Short Term Goals Short Term Goals Time Frame: Feb 13, 2017 Transfers (B,C,W/C) (FIM): 6 Gait (FIM): 5 PT Assembler Motor Vehicle Goals Custodial Goals PT Custodial Goals Time Frame: Feb 19, 2017 Transfers (B,C,W/C) (FIM): 7 Sit to Lying (QC): 6 Lying-Sitting on Side/Bed(QC): 6 Sit to Stand (QC): 6 Roll Left to Right (QC): 6 Chair/Ikl-se-Eykfk Xfer(QC): 6 Car Transfer (QC): 6 Does the Patient Walk: Yes Gait (FIM): 6 Gait distance (FIM): 3=150 ft Walk 10 feet (QC): 6 Walk 10ft-Uneven Surface(QC): 6 Walk 50ft with 2 Turns (QC): 6 Walk 150 ft (QC): 6 Gait Level of Assist: 6 Gait Assistive Device: FWW Does the Pt use WC or Scooter?: No Stairs (FIM): 5 (household) # of Steps: 8 1 Step (curb) (QC): 6 4 Steps (QC): 6 12 Steps (QC): 88 Picking up an Object (QC): 88 PT Plan Problem List Problem List: Activity Tolerance, Functional Strength, Safety, Balance, Gait, Transfer Treatment/Plan Treatment Plan: Continue Plan of Care Treatment Plan: Bed Mobility, Education, Functional Activity Yordy, Functional Strength, Group Therapy, Gait, Safety, Therapeutic Exercise, Transfers Treatment Duration: Feb 19, 2017 Visits Per Week: 10-15 Minutes/Day (M-F): 60-90 Minutes/Day (Sat/Nunes): 15-30 Safety Risks/Education Patient Education: Gait Training, Transfer Techniques, Steps, Safety Issues Teaching Recipient: Patient Teaching Methods: Demonstration, Discussion Response to Teaching: Reinforcement Needed Time/GCodes Time In: 800 Time Out: 900 Total Billed Treatment Time: 60 Total Billed Treatment 1 visit GT 30 min EX 30 min ZION MIRANDA PT Feb 12, 2017 08:59
[2017-02-12] MEDS: doxAzosin 2 MG (CARDURA) TAB PO SCH ×2 (09:05→20:12)
[2017-02-12] MEDS: lisINopril 20 MG (ZESTRIL) TAB PO SCH (09:05)
[2017-02-12] MEDS: ENOXAPARIN 40 MG/0.4 ML (LOVENOX) SYR SC SCH (09:06)
[2017-02-12] MEDS: HYDROcodone/APAP 5 MG/325 MG (LORTAB) TAB PO PRN (10:17)
[2017-02-12] MEDS: CALCITONIN NASAL 200 INTLU/AC (FORTICAL) 3.7 ML BTL SCH (10:36)
[2017-02-12] MEDS ORDERED: HYDROCORTISONE 1% CREAM 30 GM TUBE TOP PRN (11:30)
--- NOTE | 2017-02-12 11:35 | Occupational Ther Daily Note ---
OT Current Status-Daily Note Subjective Pt sitting in chair, agrees to treatment. Pt reports 3/10 back pain. Mental Status/Objective Functional [place] Measure 0=Not Assessed/NA 4=Minimal Assistance 1=Total Assistance 5=Supervision or Setup 2=Maximal Assistance 6=Modified [place] 3=Moderate Assistance 7=Complete [place] ADL-Treatment Pt requests sponge bath this morning. Sit to stand from recliner with SBA. Gait to restroom with FWW. Sponge bath completed seated at sink. Pt able to wash/dry all areas with set up and increased time. Don pullover shirt with set up. Pt donned underwear and pants with set up. Doffs/dons slippers with set up. Toilet transfer completed with SBA. Pt able to manage clothing and toileting with SBA. Stood at sink to wash hands with SBA. Pt completed denture care with SBA while standing at sink. Increased time for ADLs. Functional [place] Measure 0=Not Assessed/NA 4=Minimal Assistance 1=Total Assistance 5=Supervision or Setup 2=Maximal Assistance 6=Modified [place] 3=Moderate Assistance 7=Complete IndependenceIRFPAI Quality Coding Scale 6 Independent with activity with or without an assistive device 5 Patient requires set up or clean up by helper. Patient completes activity by themselves 4 Supervision or touching assist (CGA). [place] provide cues , steadying assist 3 The helper provides less than half the effort to complete the activity 2 The helper provides more than half the effort to complete the activity 1 Dependent. The helper does all the effort to complete an activity 7 Patient refused to complete or attempt activity 9 The patient did not perform the activity before the current illness or injury 88 Not attempted due to Medical conditions or safety concerns Grooming (FIM): 5 Oral Hygiene (QC): 5 Bathing (FIM): 5 Upper Body (FIM): 5 Lower Body Dressing (FIM): 5 Toileting (FIM): 5 Toilet/Commode Transfer (FIM): 5 Other Treatment Pt completed bilateral UE exercises while seated in chair to increase strength and activity tolerance needed for functional tasks. Pt performed shoulder flexion, biceps curls, and wrist flex/ext x15 reps with dowel sunitha. Pt has no reports of discomfort during exercises. Pt sitting in chair with needs met after session. OT Short Term Goals Short Term Goals Transfers (B,C,W/C) (FIM): 6 1=Demonstrate adherence to instructed precautions during ADL tasks. 2=Patient will verbalize/demonstrate understanding of assistive devices/ modifications for ADL. 3=Patient will improve strength/tolerance for activity to enable patient to perform ADL's. OT Clinical Trials Data Coordinator Goals Clinical Trials Data Coordinator Goals Time Frame: Feb 24, 2017 Eating (FIM): 6 Eating (QC): 6 Groomin Oral Hygiene (QC): 6 Bathing(FIM): 6 Shower/Bathe Self (QC): 6 Upper Body Dressing(FIM): 6 Upper Body Dressing (QC): 6 Lower Body Dressing(FIM): 6 Lower Body Dressing (QC): 6 On/Off Footwear (QC): 6 Toileting(FIM): 6 Toileting Hygiene (QC): 6 Toilet/Commode Transfer(FIM): 6 Toilet/Commode Transfer (QC): 6 Shower Transfer(FIM): 6 Additional Goals: 1-Demonstrate ADL Tasks, 2-Verbalize Understanding, 3- ImproveStrength/Yordy 1=Demonstrate adherence to instructed precautions during ADL tasks. 2=Patient will verbalize/demonstrate understanding of assistive devices/ modifications for ADL. 3=Patient will improve strength/tolerance for activity to enable patient to perform ADL's. OT Education/Plan Discharge Recommendations Plan/Recommendations: Continue POC Treatment Plan/Plan of Care Patient would benefit from OT for education, treatment and training to promote independence in ADL's, mobility, safety and/or upper extremity function for ADL' s. Plan of Care: ADL Retraining, Functional Mobility, Group Exercise/Act as Ind, UE Funct Exercise/Act Treatment Duration: Feb 24, 2017 Visits Per Week: 10-12 Minutes/Day (M-F): 60-90 Minutes/Day (Sat/Nunes): PRN Agreement: Yes Rehab Potential: Good Time/GCodes Start Time: 09:00 Stop Time: 10:00 Total Time Billed (hr/min): 60 Billed Treatment Time 1 visit, ADLx3(50minutes), EX(10minutes) CECE LANDEROS OT Feb 12, 2017 11:35
--- NOTE | 2017-02-12 14:54 | Therapy Group Daily Note ---
Therapy Daily Group Note Exercises Balance, Sit to/from Stand, Fine Motor, UE Exercise Other/Notes PT ambulated to Group using FWW at [facility]. Pt participated in PT/OT Group which involved Introduction (Name, Where are you from and Favorite Springtime Activity ), Socialization, Sit to Stand, Standing Balance, UE Ex/Fine Motor, Memory Recall for remembering a way to prevent fall in the home that were reviewed in the last Group a few days previous as well as Problem Solving during table top activity. Pt actively participated in Group by recalling Fall Prevention, performing EX and participating in table top game independently. Pt returned to room Independently to rest at end of Group. Start Time: 13:00 Stop Time: 14:15 Total Billed Treatment Time: 75 Total Billed Treatment 1, GRP SHLOMO OVIEDO DIRECTOR PAYER Feb 12, 2017 14:54
[2017-02-12 18:11] VITALS: BP 128/72
[2017-02-12] MEDS: meTOproloL SUCCINATE 50 MG (TOPROL XL) TAB PO SCH (20:12)
[2017-02-13 05:25] VITALS: BP 112/63
[2017-02-13 09:17] VITALS: BP 108/51
[2017-02-13] MEDS: FUROSEMIDE 20 MG (LASIX) TAB PO SCH (09:19)
[2017-02-13] MEDS: doxAzosin 2 MG (CARDURA) TAB PO SCH ×2 (09:19→21:02)
[2017-02-13] MEDS: lisINopril 20 MG (ZESTRIL) TAB PO SCH (09:19)
[2017-02-13] MEDS: ENOXAPARIN 40 MG/0.4 ML (LOVENOX) SYR SC SCH (09:21)
[2017-02-13] MEDS: CALCITONIN NASAL 200 INTLU/AC (FORTICAL) 3.7 ML BTL SCH (09:31)
--- NOTE | 2017-02-13 12:52 | Physical Therapy Daily Note ---
PT Daily Note-Current Subjective Pt agreeable and denies pain this am. Mental Status Patient Orientation: Person, Place, Situation Transfers Functional [place] Measure 0=Not Assessed/NA 4=Minimal Assistance 1=Total Assistance 5=Supervision or Setup 2=Maximal Assistance 6=Modified [place] 3=Moderate Assistance 7=Complete IndependenceIRFPAI Quality Coding Scale 6 Independent with activity with or without an assistive device 5 Patient requires set up or clean up by helper. Patient completes activity by themselves 4 Supervision or touching assist (CGA). [place] provide cues , steadying assist 3 The helper provides less than half the effort to complete the activity 2 The helper provides more than half the effort to complete the activity 1 Dependent. The helper does all the effort to complete an activity 7 Patient refused to complete or attempt activity 9 The patient did not perform the activity before the current illness or injury 88 Not attempted due to Medical conditions or safety concerns Transfers SBA Gait Training Gait Assistive Device: FWW PT amb with FWW and CGA x 250ft. Stair Training Stair Training: Handrails/: 2 handrails #of Steps: 8 Treatments Pt seen for stair training and gait training in [facility]. Pt demonstrated good steady speed, good balance throughout treatment. Assessment Current Status: Good Progress Pt neel well. Pt back to chair with call light and all needs met. PT Short Term Goals Short Term Goals Time Frame: Feb 13, 2017 Transfers (B,C,W/C) (FIM): 6 Gait (FIM): 5 PT Job Spotter Goals Job Spotter Goals PT Custodial Goals Time Frame: Feb 19, 2017 Transfers (B,C,W/C) (FIM): 7 Sit to Lying (QC): 6 Lying-Sitting on Side/Bed(QC): 6 Sit to Stand (QC): 6 Roll Left to Right (QC): 6 Chair/Cpi-vy-Kyxys Xfer(QC): 6 Car Transfer (QC): 6 Does the Patient Walk: Yes Gait (FIM): 6 Gait distance (FIM): 3=150 ft Walk 10 feet (QC): 6 Walk 10ft-Uneven Surface(QC): 6 Walk 50ft with 2 Turns (QC): 6 Walk 150 ft (QC): 6 Gait Level of Assist: 6 Gait Assistive Device: FWW Does the Pt use WC or Scooter?: No Stairs (FIM): 5 (household) # of Steps: 8 1 Step (curb) (QC): 6 4 Steps (QC): 6 12 Steps (QC): 88 Picking up an Object (QC): 88 PT Plan Treatment/Plan Treatment Plan: Continue Plan of Care Treatment Plan: Bed Mobility, Education, Functional Activity Yordy, Functional Strength, Group Therapy, Gait, Safety, Therapeutic Exercise, Transfers Treatment Duration: Feb 19, 2017 Visits Per Week: 10-15 Minutes/Day (M-F): 60-90 Minutes/Day (Sat/Nunes): 15-30 Time/GCodes Time In: 835 Time Out: 900 Total Billed Treatment Time: 25 Total Billed Treatment 1, gait x 25min DILAN PIERRE CPTA Feb 13, 2017 12:52
[2017-02-13 13:59] VITALS: BP 114/65
[2017-02-13 18:03] VITALS: BP 127/70
[2017-02-13] MEDS: meTOproloL SUCCINATE 50 MG (TOPROL XL) TAB PO SCH (21:04)
[2017-02-14 05:28] VITALS: BP 113/67
[2017-02-14 09:13] VITALS: BP 111/56
[2017-02-14 09:14] VITALS: BP 117/58
[2017-02-14] MEDS: doxAzosin 2 MG (CARDURA) TAB PO SCH ×2 (09:17→21:07)
[2017-02-14] MEDS: lisINopril 20 MG (ZESTRIL) TAB PO SCH (09:17)
[2017-02-14] MEDS: ENOXAPARIN 40 MG/0.4 ML (LOVENOX) SYR SC SCH (09:17)
[2017-02-14] MEDS: fentaNYL PATCH 25 MCG (DURAGESIC) TD SCH (09:22)
[2017-02-14] MEDS: PATCH REMOVAL TP SCH (09:22)
[2017-02-14] MEDS: CALCITONIN NASAL 200 INTLU/AC (FORTICAL) 3.7 ML BTL SCH (09:26)
[2017-02-14 16:41] VITALS: BP 127/72
[2017-02-14] MEDS: meTOproloL SUCCINATE 50 MG (TOPROL XL) TAB PO SCH (21:07)
[2017-02-15 05:02] VITALS: BP 145/64
--- NOTE | 2017-02-15 08:05 | Physical Therapy Daily Note ---
PT Daily Note-Current Subjective Pt. agrees to Rx. States she doesnt have an appetite. Nothing really tastes good. During attempts at sup to side to sit toward right side (like home situation) pt. c/o that left side back pain began and was at a 10/10 but subsided and down to 2/10 after gait and standing therex and nu step Pain Numeric Pain Scale: 2 Location: Left Location Body Site: Back Pain Description: Ache Appearance up and about room indep upon entering room , states she feels comfortable to do this Mental Status Patient Orientation: Normal For Age Transfers Functional [place] Measure 0=Not Assessed/NA 4=Minimal Assistance 1=Total Assistance 5=Supervision or Setup 2=Maximal Assistance 6=Modified [place] 3=Moderate Assistance 7=Complete IndependenceIRFPAI Quality Coding Scale 6 Independent with activity with or without an assistive device 5 Patient requires set up or clean up by helper. Patient completes activity by themselves 4 Supervision or touching assist (CGA). [place] provide cues , steadying assist 3 The helper provides less than half the effort to complete the activity 2 The helper provides more than half the effort to complete the activity 1 Dependent. The helper does all the effort to complete an activity 7 Patient refused to complete or attempt activity 9 The patient did not perform the activity before the current illness or injury 88 Not attempted due to Medical conditions or safety concerns Transfers (B, C, W/C) (FIM): 4 Scootin Rollin Supine to/from Sit: 4 Sit to/from Stand: 5 Bed to/from Chair: 5 pt. struggled sup to side to sit and required instruction as well as min assist. This seemed to start back pain but it subsided with stretching activity and gait etc Gait Training Does the Patient Walk?: Yes Gait (FIM): 5 Distance (FIM): 3=150 ft (x3) Gait Level of Assist: 6 Gait Persons Needed: 1 Gait Assistive Device: FWW gait FWW no edilma LOB, safe use of FWW for turns francisco j Exercises Supine Ex: Rolling, Glut sets, Heel Slides, Hip abd/add Supine Reps: 10 Standing: Hip Abduction, Hamstring curls, Heel/toe raises, Marching, Mini squats, Sit to Stand Standing Reps: 12 NuStep Minutes: 12 NuStep Workload: 3 Treatments MHP to left low back x 10 min while on nustep, pt. found comforting Assessment Current Status: Good Progress PT Short Term Goals Short Term Goals Time Frame: Feb 13, 2017 Transfers (B,C,W/C) (FIM): 6 Gait (FIM): 5 PT Alf Goals Alf Goals PT [place] Sample Case Goals Time Frame: Feb 19, 2017 Transfers (B,C,W/C) (FIM): 7 Sit to Lying (QC): 6 Lying-Sitting on Side/Bed(QC): 6 Sit to Stand (QC): 6 Roll Left to Right (QC): 6 Chair/Azq-bb-Lzitn Xfer(QC): 6 Car Transfer (QC): 6 Does the Patient Walk: Yes Gait (FIM): 6 Gait distance (FIM): 3=150 ft Walk 10 feet (QC): 6 Walk 10ft-Uneven Surface(QC): 6 Walk 50ft with 2 Turns (QC): 6 Walk 150 ft (QC): 6 Gait Level of Assist: 6 Gait Assistive Device: FWW Does the Pt use WC or Scooter?: No Stairs (FIM): 5 (household) # of Steps: 8 1 Step (curb) (QC): 6 4 Steps (QC): 6 12 Steps (QC): 88 Picking up an Object (QC): 88 PT Plan Treatment/Plan Treatment Plan: Continue Plan of Care Treatment Plan: Bed Mobility, Education, Functional Activity Yordy, Functional Strength, Group Therapy, Gait, Safety, Therapeutic Exercise, Transfers Treatment Duration: Feb 19, 2017 Visits Per Week: 10-15 Minutes/Day (M-F): 60-90 Minutes/Day (Sat/Unnes): 15-30 Safety Risks/Education Patient Education: Gait Training, Transfer Techniques Teaching Recipient: Patient Teaching Methods: Demonstration, Discussion Response to Teaching: Verbalize Understanding, Return Demonstration, Reinforcement Needed Time/GCodes Time In: 715 Time Out: 815 Total Billed Treatment Time: 60 Total Billed Treatment 1,FA20m,EX25m,GT15m G Codes Necessary: FATMATA Vazquez PTA Feb 15, 2017 08:05
[2017-02-15] MEDS: lisINopril 20 MG (ZESTRIL) TAB PO SCH (08:28)
[2017-02-15] MEDS: FUROSEMIDE 20 MG (LASIX) TAB PO SCH (08:28)
[2017-02-15] MEDS: ENOXAPARIN 40 MG/0.4 ML (LOVENOX) SYR SC SCH (08:28)
[2017-02-15] MEDS: doxAzosin 2 MG (CARDURA) TAB PO SCH ×2 (08:28→20:40)
[2017-02-15 08:34] VITALS: BP 133/71
[2017-02-15] MEDS: CALCITONIN NASAL 200 INTLU/AC (FORTICAL) 3.7 ML BTL SCH (09:00)
[2017-02-15] MEDS: HYDROcodone/APAP 5 MG/325 MG (LORTAB) TAB PO PRN (09:27)
--- NOTE | 2017-02-15 10:47 | Physical Therapy Daily Note ---
PT Daily Note-Current Subjective Pt. states she feels better and agrees to try sup to sit TRFs again on hospital bed. States she feels stronger and comfortable enough to be up ad merary.( as she has been doing this anyway) Pain Numeric Pain Scale: 0-No Pain Comment: back pain she had previously is now gone Mental Status Patient Orientation: Normal For Age Transfers Functional [place] Measure 0=Not Assessed/NA 4=Minimal Assistance 1=Total Assistance 5=Supervision or Setup 2=Maximal Assistance 6=Modified [place] 3=Moderate Assistance 7=Complete IndependenceIRFPAI Quality Coding Scale 6 Independent with activity with or without an assistive device 5 Patient requires set up or clean up by helper. Patient completes activity by themselves 4 Supervision or touching assist (CGA). [place] provide cues , steadying assist 3 The helper provides less than half the effort to complete the activity 2 The helper provides more than half the effort to complete the activity 1 Dependent. The helper does all the effort to complete an activity 7 Patient refused to complete or attempt activity 9 The patient did not perform the activity before the current illness or injury 88 Not attempted due to Medical conditions or safety concerns Transfers (B, C, W/C) (FIM): 6 Scootin Rollin Supine to/from Sit: 6 Sit to/from Stand: 6 Bed to/from Chair: 6 Gait Training Does the Patient Walk?: Yes Distance (FIM): 3=150 ft (200x3) Gait Level of Assist: 6 Gait Persons Needed: 0 Gait Assistive Device: FWW progressed to up ad merary status Stair Training Stair Training: Handrails/: 2 handrails Stairs (FIM): 5 #of Steps: 12 Stairs: Pattern: Reciprocal Level of Assist: 5 Treatments pt. toileted indep Assessment Current Status: Good Progress no w up ad merary, all safe functional noted several Rxs PT Short Term Goals Short Term Goals Time Frame: Feb 13, 2017 Transfers (B,C,W/C) (FIM): 6 Gait (FIM): 5 PT Portrait Photographer Goals Portrait Photographer Goals PT Jail Goals Time Frame: Feb 19, 2017 Transfers (B,C,W/C) (FIM): 7 Sit to Lying (QC): 6 Lying-Sitting on Side/Bed(QC): 6 Sit to Stand (QC): 6 Rollin Roll Left to Right (QC): 6 Chair/Jrw-zf-Wrzyt Xfer(QC): 6 Car Transfer (QC): 6 Does the Patient Walk: Yes Gait (FIM): 6 Gait distance (FIM): 3=150 ft Walk 10 feet (QC): 6 Walk 10ft-Uneven Surface(QC): 6 Walk 50ft with 2 Turns (QC): 6 Walk 150 ft (QC): 6 Gait Level of Assist: 6 Gait Assistive Device: FWW Does the Pt use WC or Scooter?: No Stairs (FIM): 5 (household) # of Steps: 8 1 Step (curb) (QC): 6 4 Steps (QC): 6 12 Steps (QC): 88 Picking up an Object (QC): 88 PT Plan Treatment/Plan Treatment Plan: Continue Plan of Care Treatment Plan: Bed Mobility, Education, Functional Activity Yordy, Functional Strength, Group Therapy, Gait, Safety, Therapeutic Exercise, Transfers Treatment Duration: Feb 19, 2017 Visits Per Week: 10-15 Minutes/Day (M-F): 60-90 Minutes/Day (Sat/Nunes): 15-30 Safety Risks/Education Patient Education: Gait Training, Transfer Techniques, Steps Teaching Recipient: Patient Teaching Methods: Demonstration, Discussion Response to Teaching: Verbalize Understanding, Return Demonstration Time/GCodes Time In: 1015 Time Out: 1045 Total Billed Treatment Time: 30 Total Billed Treatment 1,FA15m,GT15m G Codes Necessary: FATMATA Vazquez PTA Feb 15, 2017 10:47
--- NOTE | 2017-02-15 12:51 | Occupational Ther Daily Note ---
OT Current Status-Daily Note Subjective Pt sitting in chair, agrees to treatment. Pt reports 9/10 back pain. RN was notified and provided pain medication. Mental Status/Objective Functional [place] Measure 0=Not Assessed/NA 4=Minimal Assistance 1=Total Assistance 5=Supervision or Setup 2=Maximal Assistance 6=Modified [place] 3=Moderate Assistance 7=Complete [place] ADL-Treatment Pt requests sponge bath this morning. Sit to stand from chair with modified independence. Pt retrieved clothing and performed gait to restroom with FWW. Pt completed sponge bath seated at sink. Pt able to wash/dry all areas with set up and increased time. Don pullover shirt with modified independence. Pt donned underwear and pants with SBA for balance during pant hike. Pt donned socks with modified independence. Pt completed denture care with modified independence. Combed hair with modified independence. Pt retrieved clothing from closet. Assisted pt to carry laundry to laundry room. Pt able to place laundry in washer and manage settings with SBA. Pt retrieved juice from refrigerator without LOB and returned to room. Transfer to chair with modified independence. Pt sitting in chair with needs met after session. Functional [place] Measure 0=Not Assessed/NA 4=Minimal Assistance 1=Total Assistance 5=Supervision or Setup 2=Maximal Assistance 6=Modified [place] 3=Moderate Assistance 7=Complete IndependenceIRFPAI Quality Coding Scale 6 Independent with activity with or without an assistive device 5 Patient requires set up or clean up by helper. Patient completes activity by themselves 4 Supervision or touching assist (CGA). [place] provide cues , steadying assist 3 The helper provides less than half the effort to complete the activity 2 The helper provides more than half the effort to complete the activity 1 Dependent. The helper does all the effort to complete an activity 7 Patient refused to complete or attempt activity 9 The patient did not perform the activity before the current illness or injury 88 Not attempted due to Medical conditions or safety concerns Grooming (FIM): 6 Oral Hygiene (QC): 6 Bathing (FIM): 5 Upper Body (FIM): 6 Lower Body Dressing (FIM): 5 On/Off Footwear (QC): 6 OT Short Term Goals Short Term Goals Transfers (B,C,W/C) (FIM): 6 1=Demonstrate adherence to instructed precautions during ADL tasks. 2=Patient will verbalize/demonstrate understanding of assistive devices/ modifications for ADL. 3=Patient will improve strength/tolerance for activity to enable patient to perform ADL's. OT Fpc Goals Fpc Goals Time Frame: Feb 24, 2017 Eating (FIM): 6 Eating (QC): 6 Groomin Oral Hygiene (QC): 6 Bathing(FIM): 6 Shower/Bathe Self (QC): 6 Upper Body Dressing(FIM): 6 Upper Body Dressing (QC): 6 Lower Body Dressing(FIM): 6 Lower Body Dressing (QC): 6 On/Off Footwear (QC): 6 Toileting(FIM): 6 Toileting Hygiene (QC): 6 Toilet/Commode Transfer(FIM): 6 Toilet/Commode Transfer (QC): 6 Shower Transfer(FIM): 6 Additional Goals: 1-Demonstrate ADL Tasks, 2-Verbalize Understanding, 3- ImproveStrength/Yordy 1=Demonstrate adherence to instructed precautions during ADL tasks. 2=Patient will verbalize/demonstrate understanding of assistive devices/ modifications for ADL. 3=Patient will improve strength/tolerance for activity to enable patient to perform ADL's. OT Education/Plan Discharge Recommendations Plan/Recommendations: Continue POC Treatment Plan/Plan of Care Patient would benefit from OT for education, treatment and training to promote independence in ADL's, mobility, safety and/or upper extremity function for ADL' s. Plan of Care: ADL Retraining, Functional Mobility, Group Exercise/Act as Ind, UE Funct Exercise/Act Treatment Duration: Feb 24, 2017 Visits Per Week: 10-12 Minutes/Day (M-F): 60-90 Minutes/Day (Sat/Nunes): PRN Agreement: Yes Rehab Potential: Good Time/GCodes Start Time: 09:15 Stop Time: 10:15 Total Time Billed (hr/min): 60 Billed Treatment Time 1 visit, ADLx4(60minutes) CECE LANDEROS OT Feb 15, 2017 12:51
--- NOTE | 2017-02-15 14:25 | Occupational Ther Daily Note ---
OT Current Status-Daily Note Subjective Pt agreeable to treatment. Mental Status/Objective Functional [place] Measure 0=Not Assessed/NA 4=Minimal Assistance 1=Total Assistance 5=Supervision or Setup 2=Maximal Assistance 6=Modified [place] 3=Moderate Assistance 7=Complete [place] ADL-Treatment Pt supine to sit with modified independence using bed rail. Pt donned robed without assistance while standing. Pt performed gait to laundry room with FWW. Slow pace, but no LOB. Pt checked laundry, which was not dry and reset to continue drying. Functional [place] Measure 0=Not Assessed/NA 4=Minimal Assistance 1=Total Assistance 5=Supervision or Setup 2=Maximal Assistance 6=Modified [place] 3=Moderate Assistance 7=Complete IndependenceIRFPAI Quality Coding Scale 6 Independent with activity with or without an assistive device 5 Patient requires set up or clean up by helper. Patient completes activity by themselves 4 Supervision or touching assist (CGA). [place] provide cues , steadying assist 3 The helper provides less than half the effort to complete the activity 2 The helper provides more than half the effort to complete the activity 1 Dependent. The helper does all the effort to complete an activity 7 Patient refused to complete or attempt activity 9 The patient did not perform the activity before the current illness or injury 88 Not attempted due to Medical conditions or safety concerns Other Treatment Gait to therapy gym with FWW. Arm bike x5 minutes to increase overall strength and activity tolerance needed for functional tasks. Pt performed task without added resistance. Slow pace during activity, but did not require any rest breaks. Arm arc activity with bilateral UE to increase strength for ADLs. Pt performed graded clothespin task with bilateral hands to increase cloth mercerizer back tender/pinch strength. Pt completed task with increased time. Pt returned to room, transferred to bed with needs met after session. OT Short Term Goals Short Term Goals Transfers (B,C,W/C) (FIM): 6 1=Demonstrate adherence to instructed precautions during ADL tasks. 2=Patient will verbalize/demonstrate understanding of assistive devices/ modifications for ADL. 3=Patient will improve strength/tolerance for activity to enable patient to perform ADL's. OT Business Continuity Planner Goals [facility] Goals Time Frame: Feb 24, 2017 Eating (FIM): 6 Eating (QC): 6 Groomin Oral Hygiene (QC): 6 Bathing(FIM): 6 Shower/Bathe Self (QC): 6 Upper Body Dressing(FIM): 6 Upper Body Dressing (QC): 6 Lower Body Dressing(FIM): 6 Lower Body Dressing (QC): 6 On/Off Footwear (QC): 6 Toileting(FIM): 6 Toileting Hygiene (QC): 6 Toilet/Commode Transfer(FIM): 6 Toilet/Commode Transfer (QC): 6 Shower Transfer(FIM): 6 Additional Goals: 1-Demonstrate ADL Tasks, 2-Verbalize Understanding, 3- ImproveStrength/Yordy 1=Demonstrate adherence to instructed precautions during ADL tasks. 2=Patient will verbalize/demonstrate understanding of assistive devices/ modifications for ADL. 3=Patient will improve strength/tolerance for activity to enable patient to perform ADL's. OT Education/Plan Discharge Recommendations Plan/Recommendations: Continue POC Treatment Plan/Plan of Care Patient would benefit from OT for education, treatment and training to promote independence in ADL's, mobility, safety and/or upper extremity function for ADL' s. Plan of Care: ADL Retraining, Functional Mobility, Group Exercise/Act as Ind, UE Funct Exercise/Act Treatment Duration: Feb 24, 2017 Visits Per Week: 10-12 Minutes/Day (M-F): 60-90 Minutes/Day (Sat/Nunes): PRN Agreement: Yes Rehab Potential: Good Time/GCodes Start Time: 11:15 Stop Time: 11:45 Total Time Billed (hr/min): 30 Billed Treatment Time 1 visit, ADL(10minutes), Ex(20minutes) CECE LANDEROS OT Feb 15, 2017 14:25
[2017-02-15 17:00] VITALS: BP 112/63
--- NOTE | 2017-02-15 19:36 | PM & R (SOAP) Progress Note ---
Subjective Subjective/Events-last exam Patient was seen in her room this evening Patient min assist for transfers Pain much improved Objective Exam Last Set of Vital Signs Vital Signs Date Time Temp Pulse Resp B/P (MAP) Pulse Ox O2 Delivery O2 Flow Rate FiO2 02/15/17 17:00 97.1 60 16 112/63 92 Room Air Capillary Refill : I&O Intake and Output 02/15/17 00:00 Intake Total 1380 ml Balance 1380 ml Intake Oral 1380 ml # Voids 8 # Bowel Movements 2 General: Alert, Oriented X3, Cooperative, No Acute Distress HEENT: Atraumatic, PERRLA, EOMI Neck: Supple Lungs: Clear to Auscultation Heart: Regular Rate Abdomen: Normal Bowel Sounds, Soft Extremities: No Edema Neuro: Other (Generalized weakness Back pain decreasing) Assessment/Plan Assessment Ambulatory dysfunction secondary to T-10 compression frx s/p kyphoplasty improving PVD s/p revacularization surgery procedure in the past with DR Casey 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
[2017-02-15] MEDS: meTOproloL SUCCINATE 50 MG (TOPROL XL) TAB PO SCH (20:40)
[2017-02-16 05:06] VITALS: BP 124/67
[2017-02-16] MEDS: ENOXAPARIN 40 MG/0.4 ML (LOVENOX) SYR SC SCH (08:02)
[2017-02-16] MEDS: lisINopril 20 MG (ZESTRIL) TAB PO SCH (08:02)
[2017-02-16] MEDS: doxAzosin 2 MG (CARDURA) TAB PO SCH ×2 (08:02→20:07)
[2017-02-16] MEDS: CALCITONIN NASAL 200 INTLU/AC (FORTICAL) 3.7 ML BTL SCH (08:37)
--- NOTE | 2017-02-16 08:48 | Physical Therapy Daily Note ---
PT Daily Note-Current Subjective Pt. agrees to Rx. Reflected on her career in [employer]. Feeling stronger and more independent. Pain Numeric Pain Scale: 0-No Pain Mental Status Patient Orientation: Normal For Age Transfers Functional [place] Measure 0=Not Assessed/NA 4=Minimal Assistance 1=Total Assistance 5=Supervision or Setup 2=Maximal Assistance 6=Modified [place] 3=Moderate Assistance 7=Complete IndependenceIRFPAI Quality Coding Scale 6 Independent with activity with or without an assistive device 5 Patient requires set up or clean up by helper. Patient completes activity by themselves 4 Supervision or touching assist (CGA). [place] provide cues , steadying assist 3 The helper provides less than half the effort to complete the activity 2 The helper provides more than half the effort to complete the activity 1 Dependent. The helper does all the effort to complete an activity 7 Patient refused to complete or attempt activity 9 The patient did not perform the activity before the current illness or injury 88 Not attempted due to Medical conditions or safety concerns Transfers (B, C, W/C) (FIM): 6 Scootin Rollin Supine to/from Sit: 6 Sit to/from Stand: 6 Bed to/from Chair: 6 pt. supine to sit does well in softer bed flat surface did not use rails Gait Training Does the Patient Walk?: Yes Gait (FIM): 6 Distance (FIM): 3=150 ft (250x2) Gait Level of Assist: 6 Gait Persons Needed: 0 Gait Assistive Device: FWW pt. upgraded to up ad merary status yesterday. Observed again today and doing well in room, bathroom and hallways, no LOB, safe effective use of FWW Stair Training Stair Training: Handrails/: 2 handrails Stairs (FIM): 5 #of Steps: 12 Stairs: Pattern: Reciprocal Level of Assist: 5 Exercises Supine Ex: Bridging, Ankle pumps, Quad Set, Rolling, Glut sets, Lower trunk rotation, Heel Slides, Short Arc Quads, Scooting, Straight leg raise, Hip abd/ add Supine Reps: 15 Seated Therapy Exercises: Ankle pumps, Sit to stand, Hip flexion, Hip abd/add Seated Reps: 10 Standing: Hip Abduction, Hamstring curls, Heel/toe raises, Marching, Mini squats Standing Reps: 12 NuStep Minutes: 15 NuStep Workload: 3 Assessment Current Status: Good Progress PT Short Term Goals Short Term Goals Time Frame: Feb 13, 2017 Transfers (B,C,W/C) (FIM): 6 Gait (FIM): 5 PT Jail Goals Jail Goals PT Telegraph Operator Goals Time Frame: Feb 19, 2017 Transfers (B,C,W/C) (FIM): 7 Sit to Lying (QC): 6 Lying-Sitting on Side/Bed(QC): 6 Sit to Stand (QC): 6 Rollin Roll Left to Right (QC): 6 Chair/Enz-lb-[place] Xfer(QC): 6 Car Transfer (QC): 6 Does the Patient Walk: Yes Gait (FIM): 6 Gait distance (FIM): 3=150 ft Walk 10 feet (QC): 6 Walk 10ft-Uneven Surface(QC): 6 Walk 50ft with 2 Turns (QC): 6 Walk 150 ft (QC): 6 Gait Level of Assist: 6 Gait Assistive Device: FWW Does the Pt use WC or Scooter?: No Stairs (FIM): 5 (household) # of Steps: 8 1 Step (curb) (QC): 6 4 Steps (QC): 6 12 Steps (QC): 88 Picking up an Object (QC): 88 PT Plan Treatment/Plan Treatment Plan: Continue Plan of Care Treatment Plan: Bed Mobility, Education, Functional Activity Yordy, Functional Strength, Group Therapy, Gait, Safety, Therapeutic Exercise, Transfers Treatment Duration: Feb 19, 2017 Visits Per Week: 10-15 Minutes/Day (M-F): 60-90 Minutes/Day (Sat/Nunes): 15-30 Safety Risks/Education Patient Education: Gait Training, Transfer Techniques, Steps, Issued Written HEP, Correct Positioning, Safety Issues Teaching Recipient: Patient Teaching Methods: Demonstration, Discussion Response to Teaching: Verbalize Understanding, Return Demonstration Time/GCodes Time In: 715 Time Out: 845 Total Billed Treatment Time: 90 Total Billed Treatment 1,EX30m,FA30m,GT30m G Codes Necessary: FATMATA Vazquez PTA Feb 16, 2017 08:48
--- NOTE | 2017-02-16 12:46 | Occupational Ther Daily Note ---
OT Current Status-Daily Note Subjective Pt sitting in chair, agrees to treatment. Pt reports 6/10 back pain. Mental Status/Objective Functional [place] Measure 0=Not Assessed/NA 4=Minimal Assistance 1=Total Assistance 5=Supervision or Setup 2=Maximal Assistance 6=Modified [place] 3=Moderate Assistance 7=Complete [place] ADL-Treatment Pt sit to stand with modified independence. Gait to restroom with FWW, no LOB noted. Toilet transfer completed with modified independence using grab bars. Pt able to manage hygiene and clothing with modified independence. Pt completed sponge bath seated at sink. Pt able to complete all aspects of task completion with modified independence. Don shirt with modified independence. Pt donned socks, underwear, and pants with modified independence. Stood with good balance during pant hike. Pt completed denture care and combed hair with modified independence while standing at sink. Functional [place] Measure 0=Not Assessed/NA 4=Minimal Assistance 1=Total Assistance 5=Supervision or Setup 2=Maximal Assistance 6=Modified [place] 3=Moderate Assistance 7=Complete IndependenceIRFPAI Quality Coding Scale 6 Independent with activity with or without an assistive device 5 Patient requires set up or clean up by helper. Patient completes activity by themselves 4 Supervision or touching assist (CGA). [place] provide cues , steadying assist 3 The helper provides less than half the effort to complete the activity 2 The helper provides more than half the effort to complete the activity 1 Dependent. The helper does all the effort to complete an activity 7 Patient refused to complete or attempt activity 9 The patient did not perform the activity before the current illness or injury 88 Not attempted due to Medical conditions or safety concerns Grooming (FIM): 6 Oral Hygiene (QC): 6 Bathing (FIM): 6 Shower/Bathe Self (QC): 6 Upper Body (FIM): 6 Upper Body Dressing (QC): 6 Lower Body Dressing (FIM): 6 Lower Body Dressing (QC): 6 On/Off Footwear (QC): 6 Toileting (FIM): 6 Toilet/Commode Transfer (FIM): 6 Other Treatment Gait to therapy gym with FWW. Pt completed tabletop peg activity with 0.5# weights to increase strength and activity tolerance needed for functional tasks. Pt completed fine motor activity with nuts and bolts to increase fine motor coordination. Pt able to complete task without assistance and within normal amount of time. Pt returned to room, sitting in chair with needs met after session. OT Short Term Goals Short Term Goals Transfers (B,C,W/C) (FIM): 6 1=Demonstrate adherence to instructed precautions during ADL tasks. 2=Patient will verbalize/demonstrate understanding of assistive devices/ modifications for ADL. 3=Patient will improve strength/tolerance for activity to enable patient to perform ADL's. OT Usp Goals Usp Goals Time Frame: Feb 24, 2017 Eating (FIM): 6 Eating (QC): 6 Groomin Oral Hygiene (QC): 6 Bathing(FIM): 6 Shower/Bathe Self (QC): 6 Upper Body Dressing(FIM): 6 Upper Body Dressing (QC): 6 Lower Body Dressing(FIM): 6 Lower Body Dressing (QC): 6 On/Off Footwear (QC): 6 Toileting(FIM): 6 Toileting Hygiene (QC): 6 Toilet/Commode Transfer(FIM): 6 Toilet/Commode Transfer (QC): 6 Shower Transfer(FIM): 6 Additional Goals: 1-Demonstrate ADL Tasks, 2-Verbalize Understanding, 3- ImproveStrength/Yordy 1=Demonstrate adherence to instructed precautions during ADL tasks. 2=Patient will verbalize/demonstrate understanding of assistive devices/ modifications for ADL. 3=Patient will improve strength/tolerance for activity to enable patient to perform ADL's. OT Education/Plan Discharge Recommendations Plan/Recommendations: Continue POC Treatment Plan/Plan of Care Patient would benefit from OT for education, treatment and training to promote independence in ADL's, mobility, safety and/or upper extremity function for ADL' s. Plan of Care: ADL Retraining, Functional Mobility, Group Exercise/Act as Ind, UE Funct Exercise/Act Treatment Duration: Feb 24, 2017 Visits Per Week: 10-12 Minutes/Day (M-F): 60-90 Minutes/Day (Sat/Nunes): PRN Agreement: Yes Rehab Potential: Good Time/GCodes Start Time: 09:15 Stop Time: 10:15 Total Time Billed (hr/min): 60 Billed Treatment Time 1 visit, ADLx3(45minutes), Ex(15minutes) CECE LANDEROS OT Feb 16, 2017 12:46
--- NOTE | 2017-02-16 13:43 | Occupational Ther Daily Note ---
OT Current Status-Daily Note Subjective Pt sitting in chair, agrees to treatment. Pt reports back pain, but states she recently had pain meds. Mental Status/Objective Functional [place] Measure 0=Not Assessed/NA 4=Minimal Assistance 1=Total Assistance 5=Supervision or Setup 2=Maximal Assistance 6=Modified [place] 3=Moderate Assistance 7=Complete [place] ADL-Treatment Functional [place] Measure 0=Not Assessed/NA 4=Minimal Assistance 1=Total Assistance 5=Supervision or Setup 2=Maximal Assistance 6=Modified [place] 3=Moderate Assistance 7=Complete IndependenceIRFPAI Quality Coding Scale 6 Independent with activity with or without an assistive device 5 Patient requires set up or clean up by helper. Patient completes activity by themselves 4 Supervision or touching assist (CGA). [place] provide cues , steadying assist 3 The helper provides less than half the effort to complete the activity 2 The helper provides more than half the effort to complete the activity 1 Dependent. The helper does all the effort to complete an activity 7 Patient refused to complete or attempt activity 9 The patient did not perform the activity before the current illness or injury 88 Not attempted due to Medical conditions or safety concerns Other Treatment Gait to therapy gym with FWW, no LOB noted. Arm bike x8 minutes to increase overall strength and activity tolerance. Pt completed task with minimal resistance and slow pace. No rest breaks needed. Pt performed bilateral UE exercises to increase strength needed for ADLs and transfers. Pt completed shoulder flexion, forward press, biceps curls, and wrist flex/ext x20 reps with rest breaks between exercises. Pt is moving to room 226. Taken to new room, pt transferred to bed with modified independence. In bed with needs met after session. OT Short Term Goals Short Term Goals Transfers (B,C,W/C) (FIM): 6 1=Demonstrate adherence to instructed precautions during ADL tasks. 2=Patient will verbalize/demonstrate understanding of assistive devices/ modifications for ADL. 3=Patient will improve strength/tolerance for activity to enable patient to perform ADL's. OT Ice Cream Shop Associate Goals Ice Cream Shop Associate Goals Time Frame: Feb 24, 2017 Eating (FIM): 6 Eating (QC): 6 Groomin Oral Hygiene (QC): 6 Bathing(FIM): 6 Shower/Bathe Self (QC): 6 Upper Body Dressing(FIM): 6 Upper Body Dressing (QC): 6 Lower Body Dressing(FIM): 6 Lower Body Dressing (QC): 6 On/Off Footwear (QC): 6 Toileting(FIM): 6 Toileting Hygiene (QC): 6 Toilet/Commode Transfer(FIM): 6 Toilet/Commode Transfer (QC): 6 Shower Transfer(FIM): 6 Additional Goals: 1-Demonstrate ADL Tasks, 2-Verbalize Understanding, 3- ImproveStrength/Yordy 1=Demonstrate adherence to instructed precautions during ADL tasks. 2=Patient will verbalize/demonstrate understanding of assistive devices/ modifications for ADL. 3=Patient will improve strength/tolerance for activity to enable patient to perform ADL's. OT Education/Plan Discharge Recommendations Plan/Recommendations: Continue POC Treatment Plan/Plan of Care Patient would benefit from OT for education, treatment and training to promote independence in ADL's, mobility, safety and/or upper extremity function for ADL' s. Plan of Care: ADL Retraining, Functional Mobility, Group Exercise/Act as Ind, UE Funct Exercise/Act Treatment Duration: Feb 24, 2017 Visits Per Week: 10-12 Minutes/Day (M-F): 60-90 Minutes/Day (Sat/Nunes): PRN Agreement: Yes Rehab Potential: Good Time/GCodes Start Time: 11:15 Stop Time: 11:45 Total Time Billed (hr/min): 30 Billed Treatment Time 1 visit, EXx2(30minutes) CECE LANDEROS OT Feb 16, 2017 13:42
--- NOTE | 2017-02-16 13:47 | PM & R (SOAP) Progress Note ---
Subjective Subjective/Events-last exam Patient was seen in her room this AM Moved to apartment Patient c/o breakthrough pain Patient prefers oxyir over hydrocodone Discussed with RN Objective Exam Last Set of Vital Signs Vital Signs Date Time Temp Pulse Resp B/P (MAP) Pulse Ox O2 Delivery O2 Flow Rate FiO2 02/16/17 05:06 97.7 62 16 124/67 92 Room Air Capillary Refill : I&O Intake and Output 02/16/17 00:00 Intake Total 950 ml Balance 950 ml Intake Oral 950 ml # Voids 5 General: Alert, Oriented X3, Cooperative, No Acute Distress HEENT: Atraumatic, PERRLA, EOMI Neck: Supple Lungs: Clear to Auscultation Heart: Regular Rate Abdomen: Normal Bowel Sounds, Soft Extremities: No Edema Neuro: Other (Generalized weakness Back pain decreasing) Assessment/Plan Assessment Ambulatory dysfunction secondary to T-10 compression frx s/p kyphoplasty improving but with breakthrough pain-Current meds reviewed PVD s/p revacularization surgery procedure in the past with DR Casey 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
[2017-02-16 18:35] VITALS: BP 126/71
[2017-02-16] MEDS: meTOproloL SUCCINATE 50 MG (TOPROL XL) TAB PO SCH (20:07)
[2017-02-17 05:18] VITALS: BP 116/66
[2017-02-17] MEDS: FUROSEMIDE 20 MG (LASIX) TAB PO SCH (07:31)
[2017-02-17] MEDS: doxAzosin 2 MG (CARDURA) TAB PO SCH (07:32)
[2017-02-17] MEDS: ENOXAPARIN 40 MG/0.4 ML (LOVENOX) SYR SC SCH (07:32)
[2017-02-17] MEDS: lisINopril 20 MG (ZESTRIL) TAB PO SCH (07:32)
--- NOTE | 2017-02-17 07:53 | Physical Therapy Daily Note ---
PT Daily Note-Current Subjective Pt. up in chair eating breakfast in [facility] [address]. Pt. states she is doing well and hopes she can go home today. "Today would be the best day b/c my daughter is off and could get me there" Pain Numeric Pain Scale: 0-No Pain Location: No Pain Reported Mental Status Patient Orientation: Normal For Age Transfers Functional [place] Measure 0=Not Assessed/NA 4=Minimal Assistance 1=Total Assistance 5=Supervision or Setup 2=Maximal Assistance 6=Modified [place] 3=Moderate Assistance 7=Complete IndependenceIRFPAI Quality Coding Scale 6 Independent with activity with or without an assistive device 5 Patient requires set up or clean up by helper. Patient completes activity by themselves 4 Supervision or touching assist (CGA). [place] provide cues , steadying assist 3 The helper provides less than half the effort to complete the activity 2 The helper provides more than half the effort to complete the activity 1 Dependent. The helper does all the effort to complete an activity 7 Patient refused to complete or attempt activity 9 The patient did not perform the activity before the current illness or injury 88 Not attempted due to Medical conditions or safety concerns Transfers (B, C, W/C) (FIM): 6 Scootin Rollin Roll Left to Right (QC): 6 Supine to/from Sit: 6 Sit to/from Stand: 6 Sit to Lying (QC): 6 Sit to Stand (QC): 6 Chair/Xom-hz-Sccwz Xfer(QC): 6 Bed to/from Chair: 6 Gait Training Does the Patient Walk?: Yes Gait (FIM): 6 Distance (FIM): 3=150 ft (200x2) Walk 10 feet (QC): 6 Walk 50 ft with 2 Turns(QC): 6 Walk 150 ft (QC): 6 Walking 10ft/uneven surface-QC: 6 Gait Level of Assist: 6 Gait Persons Needed: 0 Gait Assistive Device: FWW up ad merary no issues, safe habits etc Wheelchair Training Does the Pt Use a Wheelchair?: No Stair Training Stair Training: Handrails/: 2 handrails Stairs (FIM): 6 #of Steps: 12 1 Step (curb) (QC): 6 4 Steps (QC): 6 12 Steps (QC): 6 Stairs: Pattern: Reciprocal Level of Assist: 6 Balance Picking up an Object (QC): 6 Exercises Supine Ex: Heel Slides, Short Arc Quads, Straight leg raise, Hip abd/add Supine Reps: 10 Standing: Heel/toe raises, Marching Standing Reps: 10 NuStep Minutes: 10 NuStep Workload: 3 Assessment Current Status: Excellent Progress safe indep function noted in all phases PT Short Term Goals Short Term Goals Time Frame: Feb 13, 2017 Transfers (B,C,W/C) (FIM): 6 Gait (FIM): [address] Assistant Goals PT Alf Goals Time Frame: Feb 19, 2017 Transfers (B,C,W/C) (FIM): 7 Sit to Lying (QC): 6 Lying-Sitting on Side/Bed(QC): 6 Sit to Stand (QC): 6 Rollin Roll Left to Right (QC): 6 Chair/Zqn-ln-Ppgpx Xfer(QC): 6 Car Transfer (QC): 6 Does the Patient Walk: Yes Gait (FIM): 6 Gait distance (FIM): 3=150 ft Walk 10 feet (QC): 6 Walk 10ft-Uneven Surface(QC): 6 Walk 50ft with 2 Turns (QC): 6 Walk 150 ft (QC): 6 Gait Level of Assist: 6 Gait Assistive Device: FWW Does the Pt use WC or Scooter?: No Stairs (FIM): 5 (household) # of Steps: 8 1 Step (curb) (QC): 6 4 Steps (QC): 6 12 Steps (QC): 88 Picking up an Object (QC): 88 PT Plan Treatment/Plan Treatment Plan: Continue Plan of Care Treatment Plan: Bed Mobility, Education, Functional Activity Yordy, Functional Strength, Group Therapy, Gait, Safety, Therapeutic Exercise, Transfers Treatment Duration: Feb 19, 2017 Visits Per Week: 10-15 Minutes/Day (M-F): 60-90 Minutes/Day (Sat/Nunes): 15-30 Safety Risks/Education Patient Education: Safety Issues Teaching Recipient: Patient Teaching Methods: Demonstration, Discussion Response to Teaching: Verbalize Understanding, Return Demonstration Discharge Recommendations Therapy D/C Recommendations: Home w/ Family Support, Home Independently Time/GCodes Time In: 700 Time Out: 800 Total Billed Treatment Time: 60 Total Billed Treatment 1,FA40m,EX20m G Codes Necessary: FATMATA Vazquez DIRECTOR OF SALES MARKETING Feb 17, 2017 07:53
[2017-02-17] MEDS: fentaNYL PATCH 25 MCG (DURAGESIC) TD SCH (08:23)
[2017-02-17] MEDS: CALCITONIN NASAL 200 INTLU/AC (FORTICAL) 3.7 ML BTL SCH (08:24)
[2017-02-17] MEDS: PATCH REMOVAL TP SCH (08:25)
--- NOTE | 2017-02-17 08:43 | PM & R (SOAP) Progress Note ---
Subjective Subjective/Events-last exam Patient was seen in her room this AM Currently in apartment and doing well with better pain control with adjustment in meds yesterday Patient is Modified Independent in apartment.Hopes to go home today as her daughter is available today to assist her to home Objective Exam Last Set of Vital Signs Vital Signs Date Time Temp Pulse Resp B/P (MAP) Pulse Ox O2 Delivery O2 Flow Rate FiO2 02/17/17 05:18 97.8 61 16 116/66 97 Room Air Capillary Refill : I&O Intake and Output 02/17/17 00:00 Intake Total 1430 ml Balance 1430 ml Intake Oral 1430 ml # Voids 8 # Bowel Movements 1 General: Alert, Oriented X3, Cooperative, No Acute Distress HEENT: Atraumatic, PERRLA, EOMI Neck: Supple Lungs: Clear to Auscultation Heart: Regular Rate Abdomen: Normal Bowel Sounds, Soft Extremities: No Edema Neuro: Other (Generalized weakness Back pain decreasing) Assessment/Plan Assessment Ambulatory dysfunction secondary to T-10 compression frx s/p kyphoplasty improving but with breakthrough pain-Current meds reviewed PVD s/p revacularization surgery procedure in the past with DR Casey 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
[2017-02-17] MEDS ORDERED: Oxycodone Hcl PO (09:22)
[2017-02-17] MEDS ORDERED: FENT1PAT8 TD (09:22)
[2017-02-17] MEDS ORDERED: Calcitonin (09:22)
--- NOTE | 2017-02-17 11:35 | Occupational Ther Daily Note ---
OT Current Status-Daily Note Subjective Pt in chair, agrees to treatment. Pt states she would like to go home today. Pt reports 6/10 back pain, states she had pain medication. Mental Status/Objective Functional [place] Measure 0=Not Assessed/NA 4=Minimal Assistance 1=Total Assistance 5=Supervision or Setup 2=Maximal Assistance 6=Modified [place] 3=Moderate Assistance 7=Complete [place] ADL-Treatment Pt sit to stand with modified independence. Pt retrieved clothing from closet using FWW for balance. Gait to restroom with FWW. Pt demonstrated ability to perform transfer to [facility] over toilet with modified independence. Pt able to manage clothing and toileting hygiene with modified independence. Pt refuses shower, states she will only do sponge baths at home. Pt completed sponge bath seated at sink. Pt able to wash/dry all areas and set up/clean up with modified independence. Don pullover shirt with modified independence. Pt completed LE dressing including donning footwear with modified independence. Grooming tasks completed seated at sink. Pt brushed hair and completed oral care with modified independence. Pt returned dirty clothes to closet without assistance. Functional [place] Measure 0=Not Assessed/NA 4=Minimal Assistance 1=Total Assistance 5=Supervision or Setup 2=Maximal Assistance 6=Modified [place] 3=Moderate Assistance 7=Complete IndependenceIRFPAI Quality Coding Scale 6 Independent with activity with or without an assistive device 5 Patient requires set up or clean up by helper. Patient completes activity by themselves 4 Supervision or touching assist (CGA). [place] provide cues , steadying assist 3 The helper provides less than half the effort to complete the activity 2 The helper provides more than half the effort to complete the activity 1 Dependent. The helper does all the effort to complete an activity 7 Patient refused to complete or attempt activity 9 The patient did not perform the activity before the current illness or injury 88 Not attempted due to Medical conditions or safety concerns Eating (FIM): 6 (Pt reports feeding self, managing containers, and cutting food without assistance.) Eating (QC): 6 Grooming (FIM): 6 Oral Hygiene (QC): 6 Bathing (FIM): 6 Shower/Bathe Self (QC): 6 Upper Body (FIM): 6 Upper Body Dressing (QC): 6 Lower Body Dressing (FIM): 6 Lower Body Dressing (QC): 6 On/Off Footwear (QC): 6 Toileting (FIM): 6 Toileting Hygiene (QC): 6 Toilet/Commode Transfer (FIM): 6 Toilet Transfer (QC): 6 Pt states she would like to go home today and daughter will be able to transport. Pt states she has no questions or concerns regarding ADLs/home safety. Other Treatment Gait to therapy gym with FWW, no LOB noted. Arm bike [id number] to increase overall strength and activity tolerance needed for functional tasks. Pt completed task with minimal resistance and slow pace. No rest breaks needed. Pt returned to room, transferred to bed with modified independence. Pt in bed with needs met after session. OT Short Term Goals Short Term Goals Transfers (B,C,W/C) (FIM): 6 1=Demonstrate adherence to instructed precautions during ADL tasks. 2=Patient will verbalize/demonstrate understanding of assistive devices/ modifications for ADL. 3=Patient will improve strength/tolerance for activity to enable patient to perform ADL's. OT Orange Picker Goals Orange Picker Goals Time Frame: Feb 24, 2017 Eating (FIM): 6 (met 02/17/17) Eating (QC): 6 (6-MET) Groomin (met 02/17/17) Oral Hygiene (QC): 6 (6-MET) Bathing(FIM): 6 (met 02/17/17) Shower/Bathe Self (QC): 6 (6-MET) Upper Body Dressing(FIM): 6 (met 02/17/17) Upper Body Dressing (QC): 6 (6-MET) Lower Body Dressing(FIM): 6 (met 02/17/17) Lower Body Dressing (QC): 6 (6-MET) On/Off Footwear (QC): 6 (6-MET) Toileting(FIM): 6 (met 02/17/17) Toileting Hygiene (QC): 6 (6-MET) Toilet/Commode Transfer(FIM): 6 (met 02/17/17) Toilet/Commode Transfer (QC): 6 (6-MET) Shower Transfer(FIM): 6 (NOT MET-pt declined to shower, states she will only do sponge baths at home) Additional Goals: 1-Demonstrate ADL Tasks, 2-Verbalize Understanding, 3- ImproveStrength/Yordy 1=Demonstrate adherence to instructed precautions during ADL tasks. 2=Patient will verbalize/demonstrate understanding of assistive devices/ modifications for ADL. 3=Patient will improve strength/tolerance for activity to enable patient to perform ADL's. OT Education/Plan Discharge Recommendations Plan/Recommendations: Continue POC Treatment Plan/Plan of Care Patient would benefit from OT for education, treatment and training to promote independence in ADL's, mobility, safety and/or upper extremity function for ADL' s. Plan of Care: ADL Retraining, Functional Mobility, Group Exercise/Act as Ind, UE Funct Exercise/Act Treatment Duration: Feb 24, 2017 Visits Per Week: 10-12 Minutes/Day (M-F): 60-90 Minutes/Day (Sat/Nunes): PRN Agreement: Yes Rehab Potential: Good Time/GCodes Start Time: 09:00 Stop Time: 10:00 Total Time Billed (hr/min): 60 Billed Treatment Time 1 visit, ADLx3(45minutes), Ex(15minutes) CECE LANDEROS OT Feb 17, 2017 11:35
--- NOTE | 2017-02-17 12:36 | Therapy Team Discharge Summary ---
Therapy Discharge Summary Discharge Recommendations Date of Discharge Therapy D/C Recommendations: Home w/ Family Support, Home Independently Physical Therapy This patient has been seen by skilled PT post back surgery. Upon admit, she required CGA to min assist with functional transfers and gait. Treatment has consisted of functional strength, mobility, gait transfers, functional act tolerance, safety and mobility to allow her to return home and care for herself as before. She has made excellent progress and achieved goals. Pt to discharge home this date with recommended [facility] PT to follow. PT Penitentiary Goals Penitentiary Goals PT Local Tanker Truck Driver Goals Time Frame: Feb 19, 2017 Transfers (B,C,W/C) (FIM): 7 (mod indep-6) Roll Left to Right (QC): 6 (met) Sit to Lying (QC): 6 (met) Lying-Sitting on Side/Bed(QC): 6 (met) Sit to Stand (QC): 6 (met) Chair/[id number] Xfer(QC): 6 (met) Car Transfer (QC): 6 Does the Patient Walk: Yes Gait (FIM): 6 (met) Gait distance (FIM): 3=150 ft Walk 10 feet (QC): 6 (met) Walk 10ft-Uneven Surface(QC): 6 (met) Walk 50ft with 2 Turns (QC): 6 (met) Walk 150 ft (QC): 6 (met) Gait Level of Assist: 6 Gait Assistive Device: FWW Does the Pt use WC or Scooter?: No Stairs (FIM): 5 (household) # of Steps: 8 1 Step (curb) (QC): 6 4 Steps (QC): 6 12 Steps (QC): 88 Picking up an Object (QC): 88 OT Penitentiary Goals Penitentiary Goals Time Frame: Feb 24, 2017 Eating (FIM): 6 (met 02/17/17) Eating (QC): 6 (6-MET) Oral Hygiene (QC): 6 (6-MET) Grooming(FIM): 6 (met 02/17/17) Bathing(FIM): 6 (met 02/17/17) Shower/Bathe Self (QC): 6 (6-MET) Upper Body Dressing(FIM): 6 (met 02/17/17) Upper Body Dressing (QC): 6 (6-MET) Lower Body Dressing(FIM): 6 (met 02/17/17) Lower Body Dressing (QC): 6 (6-MET) On/Off Footwear (QC): 6 (6-MET) Toileting(FIM): 6 (met 02/17/17) Toileting Hygiene (QC): 6 (6-MET) Toilet/Commode Transfer(FIM): 6 (met 02/17/17) Toilet/Commode Transfer (QC): 6 (6-MET) Shower Transfer(FIM): 6 (NOT MET-pt declined to shower, states she will only do sponge baths at home) Additional Goals: 1-Demonstrate ADL Tasks, 2-Verbalize Understanding, 3- ImproveStrength/Yordy 1=Demonstrate adherence to instructed precautions during ADL tasks. 2=Patient will verbalize/demonstrate understanding of assistive devices/ modifications for ADL. 3=Patient will improve strength/tolerance for activity to enable patient to perform ADL's. SKYLA LARA PT Feb 17, 2017 12:36
[2017-02-17] MEDS ORDERED: RELABEL FOR HOME USE MC SCH (14:45)
[2017-02-17] MEDS ORDERED: CALCITONIN NASAL 200 INTLU/AC (FORTICAL) 3.7 ML BTL SCH (15:00)
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
[2017-02-17 16:20] VITALS: BP 116/66
--- NOTE | 2017-02-18 07:48 | Therapy Team Discharge Summary ---
Therapy Discharge Summary Discharge Recommendations Date of Discharge Feb 17, 2017 at 16:20 Therapy D/C Recommendations: Home w/ Family Support, Home Independently Occupational Therapy Pt admitted to ARU following T10 compression fracture s/p kyphoplasty. On admission pt completed ADLs and transfers with SBA. Skilled OT intervention focused on ADL training, transfers, strengthening, and safety education. Pt made good progress with therapy and by discharge is completing ADLs and transfers with modified independence. Pt met all OT goals except shower transfer as pt declined to shower, states she will only sponge bathe at home. Pt discharged home. D/C ARU OT at this time. PT Rock Contractor Goals Rock Contractor Goals PT Rock Contractor Goals Time Frame: Feb 19, 2017 Transfers (B,C,W/C) (FIM): 7 (mod indep-6) Roll Left to Right (QC): 6 (met) Sit to Lying (QC): 6 (met) Lying-Sitting on Side/Bed(QC): 6 (met) Sit to Stand (QC): 6 (met) Chair/Amn-qp-Uerdx Xfer(QC): 6 (met) Car Transfer (QC): 6 Does the Patient Walk: Yes Gait (FIM): 6 (met) Gait distance (FIM): 3=150 ft Walk 10 feet (QC): 6 (met) Walk 10ft-Uneven Surface(QC): 6 (met) Walk 50ft with 2 Turns (QC): 6 (met) Walk 150 ft (QC): 6 (met) Gait Level of Assist: 6 Gait Assistive Device: FWW Does the Pt use WC or Scooter?: No Stairs (FIM): 5 (household) # of Steps: 8 1 Step (curb) (QC): 6 4 Steps (QC): 6 12 Steps (QC): 88 Picking up an Object (QC): 88 OT Half-Way Goals Rock Contractor Goals Time Frame: Feb 24, 2017 Eating (FIM): 6 (met 02/17/17) Eating (QC): 6 (6-MET) Oral Hygiene (QC): 6 (6-MET) Grooming(FIM): 6 (met 02/17/17) Bathing(FIM): 6 (met 02/17/17) Shower/Bathe Self (QC): 6 (6-MET) Upper Body Dressing(FIM): 6 (met 02/17/17) Upper Body Dressing (QC): 6 (6-MET) Lower Body Dressing(FIM): 6 (met 02/17/17) Lower Body Dressing (QC): 6 (6-MET) On/Off Footwear (QC): 6 (6-MET) Toileting(FIM): 6 (met 02/17/17) Toileting Hygiene (QC): 6 (6-MET) Toilet/Commode Transfer(FIM): 6 (met 02/17/17) Toilet/Commode Transfer (QC): 6 (6-MET) Shower Transfer(FIM): 6 (NOT MET-pt declined to shower, states she will only do sponge baths at home) Additional Goals: 1-Demonstrate ADL Tasks, 2-Verbalize Understanding, 3- ImproveStrength/Yordy 1=Demonstrate adherence to instructed precautions during ADL tasks. 2=Patient will verbalize/demonstrate understanding of assistive devices/ modifications for ADL. 3=Patient will improve strength/tolerance for activity to enable patient to perform ADL's. CECE LANDEROS OT Feb 18, 2017 07:48
--- OUTSIDE RECORDS SUMMARY | 2017-03-07 04:37 | XMS REPORT | Continuity of Care Document ---
Author Author [facility] Organization [facility] Address Unknown Phone Unavailable Allergies Active Description Code Type Severity Reaction Onset Reported/Identified Relationship to Patient Clinical Status Yes codeine [id number] Drug Allergy Mild NAUSEA 07/30/2008 Yes morphine [id number] Drug Allergy Mild NAUSEA 07/30/2008 Yes meperidine [id number] Drug Allergy Mild N/V 01/17/2010 Medications 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 MEDICAL INTERPRETER (CURRENT) DRUG THERAPY 02/24/2011 Ot 250.00 02/24/2011 [...] 285.9 ANEMIA NOS 11/28/2011 Ot 440.20 ATHEROSCLEROSIS [place]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 11/28/2011 Ot 440.4 CHRONIC TOTAL [...] 10/04/2014 INGRID COOPER MD Ot 440.21 ATHEROSCL [place] ARTER EXTREM W INTERMIT 10/04/2014 INGRID COOPER [...] MD Ot V58.69 OTH MED,LT,CURRENT USE 12/18/2014 XNI PATE Ot 157.9 12/21/2014 KENNETH LAZO, INGRID [...] N Ot 157.9 03/19/2015 MORENITA FARRIS S PRICE CLERK Ot 157.0 03/19/2015 FARRISMORENITA S PRICE CLERK Ot 196.9 03/19/2015 FARRISMORENITA S PRICE CLERK Ot 285.9 03/19/2015 FARRISMORENITA S PRICE CLERK Ot V58.69 05/08/2015 FARRISMORENITA S PRICE CLERK Ot 157.0 05/08/2015 FARRISGERAAH S PRICE CLERK Ot 196.9 05/08/2015 MORENITA FARRIS PRICE CLERK Ot 285.9 05/08/2015 FARRISMORENITA Mckeon S PRICE CLERK Ot V58.69 05/10/2015 MORENITA FARRIS S PRICE CLERK Ot 157.0 05/10/2015 FARRISMORENITA Mckeon S PRICE CLERK Ot 196.9 05/10/2015 FARRISMORENITA Mckeon S PRICE CLERK Ot 285.9 05/10/2015 FARRISMORENITA Mckeon S PRICE CLERK Ot V58.69 05/22/2015 HERLINDA, BOBAN N Ot 157.0 05/22/2015 HERLINDA, BOBAN N Ot 196.9 05/22/2015 HERLINDA, BOBAN N Ot 285.9 05/22/2015 HERLINDA, BOBAN N Ot V58.11 05/22/2015 HERLINDA, BOBAN N Ot V58.69 05/22/2015 FARRISMORENITA Mckeon S PRICE CLERK Ot 157.9 05/23/2015 HERLINDA, BOBAN N Ot 157.0 05/23/2015 HERLINDA, BOBAN N Ot 196.9 05/23/2015 HERLINDA, BOBAN N Ot 285.9 05/23/2015 HERLINDA, BOBAN N Ot V58.11 05/23/2015 HERLINDA, BOBAN N Ot V58.69 05/23/2015 FARRISMORENITA Mckeon PRICE CLERK Ot 157.9 06/16/2015 HERLINDA, BOBAN N [...] N Ot V58.69 07/03/2015 KALEIGH HILAH S PRICE CLERK Ot 157.0 07/03/2015 FARRIS, HILAH S PRICE CLERK Ot 196.9 07/03/2015 FARRIS HILAH S PRICE CLERK Ot 285.9 07/03/2015 FARRIS, HILAH S PRICE CLERK Ot V58.69 07/03/2015 FARRIS, HILAH S PRICE CLERK Ot 157.0 07/03/2015 FARRIS, HILAH S PRICE CLERK Ot 196.9 07/03/2015 FARRIS, HILAH S PRICE CLERK Ot 285.9 07/03/2015 FARRIS, HILAH S PRICE CLERK Ot V58.69 07/08/2015 MESSI LAZO, ROBERT Ot 157.0 07/08/2015 MESSI LAZO, GUZMANDiamondKEVAN Ot 196.9 07/08/2015 MESSI LAZO, ROBERT Ot 285.9 07/08/2015 MESSI LAZO, ROBERT Ot V58.69 07/16/2015 HERLINDA, BOBAN N Ot 157.0 07/16/2015 HERLINDA, BOBAN N Ot 196.9 07/16/2015 HERLINDA, BOBAN N Ot 285.9 07/16/2015 HERLINDA, BOBAN N Ot V58.11 07/16/2015 HERLINDA, BOBAN N Ot V58.69 07/16/2015 FARRIS, HILAH S PRICE CLERK Ot 157.0 07/16/2015 FARRIS, HILAH S PRICE CLERK Ot 196.9 07/16/2015 KALEIGH MORENITA S PRICE CLERK Ot 285.9 07/16/2015 FARRIS, MORENITA S PRICE CLERK Ot V58.69 07/25/2015 FARRIS, HILAH S PRICE CLERK Ot 157.0 07/25/2015 FARRIS, HILAH S PRICE CLERK Ot 196.9 07/25/2015 FARRIS GERAAH S PRICE CLERK Ot 285.9 07/25/2015 FARRIS GERAAH S PRICE CLERK Ot V58.69 08/06/2015 HERLINDAMARILU BRAUNAN N Ot 157.0 08/06/2015 HERLINDA, BOBAN N Ot 196.9 08/06/2015 HERLINDA, BOBAN N Ot 285.9 08/06/2015 HERLINDAXIN BRAUN N Ot V58.11 08/06/2015 HERLINDAMARILU BRAUNAN N Ot V58.69 08/06/2015 KALEIGH MORENITA S PRICE CLERK Ot 157.0 08/06/2015 FARRIS, MORENITA S PRICE CLERK Ot 196.9 08/06/2015 KALEIGH MORENITA S PRICE CLERK Ot 285.9 08/06/2015 FARRIS, MORENITA S PRICE CLERK Ot V58.69 08/14/2015 MARILU PATEAN N Ot 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 PANCREAS HEAD 08/14/2015 HERLINDAXIN BRAUN N Ot 196.9 MAL LEX LYMPH NODE NOS 08/14/2015 HERLINDAXIN BRAUN N Ot 285.9 ANEMIA NOS 08/14/2015 XIN PATE N Ot V58.11 ENCOUNTER FOR ANTINEOPLASTIC CHEMOTHERAP 08/14/2015 XIN PATE N Ot V58.69 OT MED,LT,CURRENT USE 08/14/2015 MORENITA FARRIS S PRICE CLERK Ot 157.0 08/14/2015 FARRISMORENITA S PRICE CLERK Ot 196.9 08/14/2015 FARRISGERAAH S PRICE CLERK Ot 285.9 08/14/2015 FARRIS HILAH S PRICE CLERK Ot V58.69 08/19/2015 MARILU PATEAN N Ot 157.0 08/19/2015 HERLINDA BOBAN N Ot 196.9 08/19/2015 HERLINDA BOBAN N Ot 285.9 08/19/2015 HERLINDAXIN BRAUN N Ot V58.11 08/19/2015 HERLINDAXIN BRAUN N Ot V58.69 08/21/2015 MORENITA FARRIS S PRICE CLERK Ot 157.9 09/02/2015 FARRISMORENITA Mckeon S PRICE CLERK Ot 157.9 09/10/2015 XIN PATE N Ot 157.0 09/10/2015 HERLINDAXIN BRAUN N Ot 196.9 09/10/2015 HERLINDAXIN BRAUN N Ot 285.9 09/10/2015 HERLINDAXIN BRAUN N Ot V58.11 09/10/2015 XIN PATE N Ot V58.69 09/11/2015 MORENITA FARRIS S PRICE CLERK Ot C25.0 09/11/2015 FARRISMORENITA S PRICE CLERK Ot G56.91 09/11/2015 FARRISMORENITA S PRICE CLERK Ot Z79.899 09/17/2015 MORENITA FARRIS S PRICE CLERK Ot C25.0 09/17/2015 FARRISMORENITA S PRICE CLERK Ot G56.91 09/17/2015 FARRISMORENITA S PRICE CLERK Ot Z79.899 10/01/2015 XIN PATE N Ot 157.0 10/01/2015 HERLINDAXIN BRAUN N Ot 196.9 10/01/2015 HERLINDAXIN BRAUN N Ot 285.9 10/01/2015 XIN PATE N Ot V58.11 10/01/2015 XIN PATE N Ot V58.69 10/02/2015 MORENITA FARRIS S PRICE CLERK Ot C25.0 10/02/2015 FARRISMORENITA S PRICE CLERK Ot Z79.899 10/15/2015 FARRIS, MORENITA S PRICE CLERK Ot C25.0 10/15/2015 FARRIS, MORENITA S PRICE CLERK Ot Z79.899 10/23/2015 FARRIS, HILAH S PRICE CLERK Ot C25.0 10/23/2015 FARRIS, HILAH S PRICE CLERK Ot Z79.899 10/31/2015 FARRIS, HILAH S PRICE CLERK Ot C25.0 10/31/2015 FARRIS, GERAAH S PRICE CLERK Ot Z79.899 11/02/2015 HERLINDAXIN BRAUN N [...] CHEMOTHERAP 11/18/2015 XIN PATE Ot Z79.899 OTHER PRISON (CURRENT) DRUG THERAPY 12/05/2015 MORENITA FARRIS PRICE CLERK Ot C25.0 12/05/2015 KALEIGH MORENITA Mckeon PRICE CLERK Ot C77.9 12/05/2015 GERA FARRISLATA Mike PRICE CLERK Ot D70.1 12/05/2015 MORENITA FARRIS PRICE CLERK Ot T45.1X5A 12/05/2015 MORENITA FARRIS PRICE CLERK Ot Z79.899 12/12/2015 MORENITA FARRIS PRICE CLERK Ot C25.0 12/12/2015 MORENITA FARRIS PRICE CLERK Ot C77.9 12/12/2015 GERA FARRISLATA Mike PRICE CLERK Ot D70.1 12/12/2015 KALEIGH MORENITA Mckeon PRICE CLERK Ot T45.1X5A 12/12/2015 KALEIGH MORENITA Mckeon PRICE CLERK Ot Z79.899 12/13/2015 ZAYRA ELIZONDO MD Ot 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, UNSPECIF 12/13/2015 ZAYRA ELIZONDO MD Ot J90 PLEURAL EFFUSION, 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 12/13/2015 ZAYRA ELIZONDO MD Ot J98.11 ATELECTASIS 12/13/2015 ZAYRA ELIZONDO MD Ot Z79.899 OTHER PRISON (CURRENT) DRUG THERAPY 12/15/2015 ZAYRA ELIZONDO MD Ot 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, UNSPECIF 12/15/2015 ZAYRA ELIZONDO MD Ot R20.0 ANESTHESIA OF SKIN 12/15/2015 ZAYRA ELIZONDO MD Ot R20.2 PARESTHESIA OF SKIN 12/15/2015 ZAYRA ELIZONDO MD Ot R51 HEADACHE 12/15/2015 ZAYRA ELIZONDO MD Ot Z79.899 OTHER PRISON (CURRENT) DRUG THERAPY 12/17/2015 MORENITA FARRIS S PRICE CLERK Ot C25.0 12/26/2015 MORENITA FARRIS S PRICE CLERK Ot C25.0 12/26/2015 MORENITA FARRIS S PRICE CLERK Ot C25.0 12/26/2015 MORENITA FARRIS S PRICE CLERK Ot C77.9 12/26/2015 MORENITA FARRIS S PRICE CLERK Ot I10 12/26/2015 MORENITA FARRIS S PRICE CLERK Ot Z79.899 01/02/2016 MORENITA FARRIS S PRICE CLERK Ot C25.0 01/02/2016 MORENITA FARRIS S PRICE CLERK Ot C77.9 01/02/2016 MORENITA FARRIS S PRICE CLERK Ot I10 01/02/2016 MORENITA FARRIS S PRICE CLERK Ot Z79.899 01/09/2016 XIN PATE Ot C25.0 01/09/2016 XIN PATE Ot C77.9 01/09/2016 XIN PATE Ot D64.9 01/09/2016 XIN PATE Ot Z51.11 01/09/2016 XIN PATE N Ot Z79.899 01/10/2016 YANETH LAZO, JENNIFER Hernandez Ot R31.9 01/16/2016 YANETH LAZO, JENNIFER Hernandez Ot R31.9 01/29/2016 MORENITA FARRIS S PRICE CLERK Ot C25.0 01/29/2016 MORENITA FARRIS S PRICE CLERK Ot C77.9 01/29/2016 MORENITA FARRIS S PRICE CLERK Ot I10 01/29/2016 MORENITA FARRIS S PRICE CLERK Ot R74.8 01/29/2016 MORENITA FARRIS S PRICE CLERK Ot Z79.899 01/29/2016 MORENITA FARRIS S PRICE CLERK Ot C25.0 02/03/2016 GERA FARRISAH S PRICE CLERK Ot C25.0 02/06/2016 BAIMA, ANCELMO L PRICE CLERK Ot I10 02/06/2016 BAIMA, ANCELMO L PRICE CLERK Ot I25.10 02/06/2016 BAIMA, ANCELMO L PRICE CLERK Ot I65.23 02/06/2016 BAIMA, ANCELMO L PRICE CLERK Ot I70.213 02/06/2016 BAIMA, ANCELMO L PRICE CLERK Ot R00.2 02/11/2016 HERLINDA, XIN N Ot C25.0 02/11/2016 HERLINDAXIN N Ot C77.9 02/11/2016 HERLINDAXIN BRAUN N Ot D64.9 02/11/2016 XIN PATE N Ot Z79.899 02/11/2016 BAIMA, ANCELMO L PRICE CLERK Ot I10 02/11/2016 BAIMA, ANCELMO L PRICE CLERK Ot I25.10 02/11/2016 BAIMA, ANCELMO L PRICE CLERK Ot I65.23 02/11/2016 BAIMA, ANCELMO L PRICE CLERK Ot I70.213 02/11/2016 BAIMA, ANCELMO L PRICE CLERK Ot R00.2 02/12/2016 BAIMA, ANCELMO L PRICE CLERK Ot I10 02/12/2016 BAIMA, ANCELMO L PRICE CLERK Ot I25.10 02/12/2016 BAIMA, ANCELMO L PRICE CLERK Ot I65.23 02/12/2016 BAIMA, ANCELMO L PRICE CLERK Ot I70.213 02/12/2016 BAIMA, ANCELMO L PRICE CLERK Ot R00.2 02/17/2016 XIN PATE Ot C25.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 02/17/2016 XIN PATE Ot 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 02/17/2016 XIN PATE N Ot D64.9 ANEMIA, UNSPECIFIED 02/17/2016 XIN PATE N Ot Z79.899 OTHER PRISON (CURRENT) DRUG THERAPY 02/18/2016 XIN PATE N Ot C25.0 02/18/2016 XIN PATE N Ot C77.9 02/18/2016 XIN PATE N Ot D64.9 02/18/2016 XIN PATE N Ot Z79.899 02/18/2016 FARRISMORENITA Mckeon S PRICE CLERK Ot C25.0 02/18/2016 KALEIGHMORENITA S PRICE CLERK Ot C77.9 02/18/2016 KALEIGHMORENITA S PRICE CLERK Ot I10 02/18/2016 KALEIGHMORENITA S PRICE CLERK Ot R74.8 02/18/2016 FARRISMORENITA S PRICE CLERK Ot Z79.899 02/19/2016 ANCELMO MARION PRICE CLERK Ot I10 02/19/2016 ANCELMO MARION PRICE CLERK Ot I25.10 02/19/2016 ANCELMO MARION PRICE CLERK Ot I65.23 02/19/2016 ANCELMO MARION PRICE CLERK Ot I70.213 02/19/2016 ANCELMO MARION PRICE CLERK Ot R00.2 02/19/2016 XIN PATE N Ot C25.0 02/19/2016 XIN PATE N Ot C77.9 02/19/2016 XIN PATE N Ot D64.9 02/19/2016 XIN PATE N Ot Z79.899 02/20/2016 FARRISMORENITA Mckeon S PRICE CLERK Ot C25.0 02/26/2016 KALEIGHMORENITA S PRICE CLERK Ot C25.0 02/26/2016 KALEIGHMORENITA S PRICE CLERK Ot C77.9 02/26/2016 FARRISMORENITA Mckeon S PRICE CLERK Ot I10 02/26/2016 FARRISMORENITA S PRICE CLERK Ot R74.8 02/26/2016 KALEIGHMORENITA S PRICE CLERK Ot Z79.899 02/26/2016 FARRISMORENITA S PRICE CLERK Ot C25.0 02/26/2016 FARRISMORENITA S PRICE CLERK Ot C77.9 02/26/2016 FARRISMORENITA S PRICE CLERK Ot I10 02/26/2016 KALEIGH MORENITA S PRICE CLERK Ot R74.8 02/26/2016 KALEIGH MORENITA S PRICE CLERK Ot Z79.899 02/26/2016 KALEIGHMORENITA S PRICE CLERK Ot C25.0 03/04/2016 KALEIGH MORENITA S PRICE CLERK Ot C25.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 03/04/2016 KALEIGH MORENITA S PRICE CLERK Ot 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 03/04/2016 FARRISMORENITA Mckeon PRICE CLERK Ot I10 ESSENTIAL (PRIMARY) HYPERTENSION 03/04/2016 FARRISMORENITA MckeonP Ot R74.8 ABNORMAL LEVELS OF OTHER SERUM ENZYMES 03/04/2016 MORENITA FARRIS PRICE CLERK Ot Z79.899 OTHER PRISON (CURRENT) DRUG THERAPY 04/02/2016 FARRISMORENITA Mckeon PRICE CLERK Ot C25.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 04/02/2016 FARRISMORENITA Mckeon PRICE CLERK Ot 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 04/02/2016 FARRISMORENITA Mckeon PRICE CLERK Ot D64.9 ANEMIA, UNSPECIFIED 04/02/2016 FARRISMORENITA Mckeon PRICE CLERK Ot I10 ESSENTIAL (PRIMARY) HYPERTENSION 04/02/2016 FARRISMORENITA MckeonP Ot Z79.899 OTHER MEDICAL INTERPRETER (CURRENT) DRUG THERAPY 04/06/2016 XIN PATE N Ot C25.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 04/06/2016 XIN PATE N Ot 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 04/06/2016 XIN PATE N Ot D64.9 ANEMIA, UNSPECIFIED 04/06/2016 HERLINDAXIN BRAUN N Ot Z51.11 ENCOUNTER FOR ANTINEOPLASTIC CHEMOTHERAP 04/06/2016 HERLINDAXIN BRAUN N Ot Z79.899 OTHER MEDICAL INTERPRETER (CURRENT) DRUG THERAPY 04/15/2016 XIN PATE N Ot C25.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 04/15/2016 XIN PATE N Ot 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 04/15/2016 XIN PATE N Ot D64.9 ANEMIA, UNSPECIFIED 04/15/2016 HERLINDAXIN BRAUN N Ot Z51.11 ENCOUNTER FOR ANTINEOPLASTIC CHEMOTHERAP 04/15/2016 XIN PATE N Ot Z79.899 OTHER MEDICAL INTERPRETER (CURRENT) DRUG THERAPY 04/23/2016 FARRISMORENITA Mckeon PRICE CLERK Ot C25.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 04/23/2016 KALEIGHMORENITA PRICE CLERK Ot 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 04/23/2016 KALEIGH MORENITA Mckeon PRICE CLERK Ot D64.9 ANEMIA, UNSPECIFIED 04/23/2016 MORENITA FARRIS PRICE CLERK Ot I10 ESSENTIAL (PRIMARY) HYPERTENSION 04/23/2016 MORENITA FARRIS PRICE CLERK Ot Z79.899 OTHER PRISON (CURRENT) DRUG THERAPY 04/23/2016 MORENITA FARRIS PRICE CLERK Ot C25.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 04/24/2016 MORENITA FARRIS PRICE CLERK Ot C25.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 04/24/2016 FARRISMORENITA Mckeon PRICE CLERK Ot 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 04/24/2016 MORENITA FARRIS PRICE CLERK Ot D64.9 ANEMIA, UNSPECIFIED 04/24/2016 MORENITA FARRIS PRICE CLERK Ot I10 ESSENTIAL (PRIMARY) HYPERTENSION 04/24/2016 FARRISMORENITA Mckeon PRICE CLERK Ot Z79.899 OTHER PRISON (CURRENT) DRUG THERAPY 05/12/2016 MORENITA FARRIS PRICE CLERK Ot C25.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 05/13/2016 MORENITA FARRIS PRICE CLERK Ot C25.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 05/13/2016 MORENITA FARRIS PRICE CLERK Ot 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 05/13/2016 MORENITA FARRIS PRICE CLERK Ot D64.9 ANEMIA, UNSPECIFIED 05/13/2016 MORENITA FARRIS PRICE CLERK Ot I10 ESSENTIAL (PRIMARY) HYPERTENSION 05/13/2016 MORENITA FARRIS PRICE CLERK Ot Z79.899 OTHER MEDICAL INTERPRETER (CURRENT) DRUG THERAPY 05/18/2016 XIN PATE N Ot C25.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 05/18/2016 XIN PATE Ot 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 05/18/2016 XIN PATE N Ot D64.9 ANEMIA, UNSPECIFIED 05/18/2016 XIN PATE N Ot Z51.11 ENCOUNTER FOR ANTINEOPLASTIC CHEMOTHERAP 05/18/2016 XIN PATE N Ot Z79.899 OTHER MEDICAL INTERPRETER (CURRENT) DRUG THERAPY 05/25/2016 XIN PATE N Ot C25.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 05/25/2016 XIN PATE N Ot 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 05/25/2016 XIN PATE N Ot D64.9 ANEMIA, UNSPECIFIED 05/25/2016 HERLINDAXIN BRAUN N Ot Z51.11 ENCOUNTER FOR ANTINEOPLASTIC CHEMOTHERAP 05/25/2016 HERLINDAXIN N Ot Z79.899 OTHER PRISON (CURRENT) DRUG THERAPY 05/25/2016 MORENITA FARRISP Ot [...] 06/26/2016 XIN PATE N Ot Z79.899 OTHER MEDICAL INTERPRETER (CURRENT) DRUG THERAPY 07/16/2016 Ot 998.59 07/16/2016 HERLINDAXIN N Ot C25.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 07/16/2016 HERLINDA BOBANGELICA N Ot 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9 ANEMIA, UNSPECIFIED 08/21/2016 XIN PATE N Ot Z79.899 OTHER MEDICAL INTERPRETER (CURRENT) DRUG THERAPY 08/28/2016 XIN PATE Ot C25.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 08/28/2016 XIN PATE N Ot 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 08/28/2016 XIN PATE Ot D64.9 ANEMIA, UNSPECIFIED 08/28/2016 XIN PATE Ot Z23 ENCOUNTER FOR IMMUNIZATION 08/28/2016 XIN PATE Ot Z79.899 OTHER MEDICAL INTERPRETER (CURRENT) DRUG THERAPY 09/24/2016 Ot 401.9 HYPERTENSION NOS 09/24/2016 Ot 785.1 PALPITATIONS 09/24/2016 Ot V12.59 HX-CIRCULATORY SYST DIS,NEC 09/24/2016 Ot V15.82 HISTORY OF TOBACCO USE 09/24/2016 YANETH LAZO, JENNFIER Hernandez Ot V76.12 OTH SCREEN MAMMO-MALIGN NEOPLASM OF HAILE 09/24/2016 YANETH LAZO, JENNIFER Hernandez Ot 272.4 HYPERLIPIDEMIA NEC/NOS 09/24/2016 JENNIFER WOLFE MD Ot 414.01 CORONARY 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 09/24/2016 JENNIFER WOLFE MD Ot 786.50 [...] EXAM PRE-OPERATIVE NOS 09/24/2016 MORENITA FARRIS S PRICE CLERK Ot 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 PANCREAS HEAD 09/24/2016 FARRISMORENITA Mckeon S PRICE CLERK Ot 196.9 MAL LEX LYMPH NODE NOS 09/24/2016 MORENITA FARRIS S PRICE CLERK Ot V58.69 OTH MED,LT,CURRENT USE 09/24/2016 Ot 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 PANCREAS HEAD 09/24/2016 Ot 196.9 MAL LEX LYMPH NODE NOS 09/24/2016 Ot 285.9 ANEMIA NOS 09/24/2016 Ot 288.60 LEUKOCYTOSIS, UNSPECIFIED 09/24/2016 Ot 780.60 FEVER, UNSPECIFIED 09/24/2016 Ot 782.4 JAUNDICE NOS 09/24/2016 Ot V58.69 OTH MED,LT,CURRENT USE 09/24/2016 Ot 288.60 LEUKOCYTOSIS, UNSPECIFIED 09/24/2016 Ot 780.60 FEVER, UNSPECIFIED 09/24/2016 MORENITA FARRIS S PRICE CLERK Ot 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 PANCREAS HEAD 09/24/2016 MORENITA FARRIS S PRICE CLERK Ot 196.9 MAL LEX LYMPH NODE NOS 09/24/2016 FARRISMORENITA Mckeon S PRICE CLERK Ot 285.9 ANEMIA NOS 09/24/2016 MORENITA FARRIS S PRICE CLERK Ot V58.69 OTH MED,LT,CURRENT USE 09/24/2016 MORENITA FARRIS S PRICE CLERK Ot 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 PANCREAS HEAD 09/24/2016 FARRISMORENITA Mckeon S PRICE CLERK Ot 196.9 MAL LEX LYMPH NODE NOS 09/24/2016 MORENITA FARRIS S PRICE CLERK Ot 285.9 ANEMIA NOS 09/24/2016 MORENITA FARRIS S PRICE CLERK Ot V58.69 OTH MED,LT,CURRENT USE 09/24/2016 MORENITA FARRIS S PRICE CLERK Ot 157.9 MALIG LEX PANCREAS NOS 09/24/2016 MESSI LAZO, ROBERT Ot 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 PANCREAS HEAD 09/24/2016 MESSI LAZO, ROBERT Ot 196.9 MAL LEX LYMPH NODE NOS 09/24/2016 MESSI LAZO, ROBERT Ot 285.9 ANEMIA NOS 09/24/2016 MESSI LAZO, ROBERT Ot V58.69 OTH MED,LT,CURRENT USE 09/24/2016 MORENITA FARRIS PRICE CLERK Ot 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 PANCREAS HEAD 09/24/2016 MORENITA FARRIS PRICE CLERK Ot 196.9 MAL LEX LYMPH NODE NOS 09/24/2016 MORENITA FARRIS PRICE CLERK Ot 285.9 ANEMIA NOS 09/24/2016 MORENITA FARRIS PRICE CLERK Ot V58.69 OTH MED,LT,CURRENT USE 09/24/2016 MORENITA FARRIS PRICE CLERK Ot 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 PANCREAS HEAD 09/24/2016 MORENITA FARRIS PRICE CLERK Ot 196.9 MAL LEX LYMPH NODE NOS 09/24/2016 MORENITA FARRIS PRICE CLERK Ot 285.9 ANEMIA NOS 09/24/2016 MORENITA FARRISP Ot V58.69 OTH MED,LT,CURRENT USE 09/24/2016 MORENITA FARRIS PRICE CLERK Ot 157.9 MALIG LEX PANCREAS NOS 09/24/2016 MORENITA FARRIS PRICE CLERK Ot C25.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 09/24/2016 MORENITA FARRIS PRICE CLERK Ot 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 09/24/2016 MORENITA FARRIS PRICE CLERK Ot Z79.899 OTHER PRISON (CURRENT) DRUG THERAPY 09/24/2016 MORENITA FARRIS PRICE CLERK Ot C25.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 09/24/2016 MORENITA FARRIS PRICE CLERK Ot Z79.899 OTHER MEDICAL INTERPRETER (CURRENT) DRUG THERAPY 09/24/2016 MORENITA FARRIS PRICE CLERK Ot C25.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 09/24/2016 MORENITA FARRIS PRICE CLERK Ot Z79.899 OTHER PRISON (CURRENT) DRUG THERAPY 09/24/2016 MORENITA FARRIS PRICE CLERK Ot C25.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 09/24/2016 MORENITA FARRISP Ot 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 09/24/2016 MORENITA FARRISP Ot 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 09/24/2016 MORENITA FARRISP Ot T45.1X5A ADVERSE EFFECT OF ANTINEOPLASTIC AND IMM 09/24/2016 MORENITA FARRIS PRICE CLERK Ot Z79.899 OTHER PRISON (CURRENT) DRUG THERAPY 09/24/2016 MORENITA FARRIS PRICE CLERK Ot C25.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 09/24/2016 MORENITA FARRIS PRICE CLERK Ot C25.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 09/24/2016 MORENITA FARRIS PRICE CLERK Ot 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 09/24/2016 MORENITA FARRIS PRICE CLERK Ot I10 ESSENTIAL (PRIMARY) HYPERTENSION 09/24/2016 MORENITA FARRIS PRICE CLERK Ot Z79.899 OTHER MEDICAL INTERPRETER (CURRENT) DRUG THERAPY 09/24/2016 YANETH LAZO, JENNIFER Hernandez Ot R31.9 HEMATURIA, UNSPECIFIED 09/24/2016 LOREMARYCARMEN ANCELMO L PRICE CLERK Ot I10 ESSENTIAL (PRIMARY) HYPERTENSION 09/24/2016 LOREREENA CONROYHER L PRICE CLERK Ot I25.10 ATHSCL HEART DISEASE OF [place] CORONARY 09/24/2016 LOREREENA CONROYHER L PRICE CLERK Ot 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 09/24/2016 LOREMARYCARMEN ANCELMO L PRICE CLERK Ot I70.213 ATHSCL [place] ARTERIES OF [facility] 09/24/2016 LOREANCELMO CONROY L PRICE CLERK Ot R00.2 PALPITATIONS 09/24/2016 LOREMA ANCELMO L PRICE CLERK Ot I10 ESSENTIAL (PRIMARY) HYPERTENSION 09/24/2016 BAIREENA CONROYHER L PRICE CLERK Ot I25.10 ATHSCL HEART DISEASE OF [place] CORONARY 09/24/2016 BAIMAREENAANCELMO L PRICE CLERK Ot 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 09/24/2016 BAIMAREENAANCELMO L PRICE CLERK Ot I70.213 ATHSCL [place] [facility] OF [facility] 09/24/2016 LOREMAREENAANCELMO L PRICE CLERK Ot R00.2 PALPITATIONS 09/24/2016 MORENITA FARRIS PRICE CLERK Ot C25.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 09/24/2016 MORENITA FARRIS PRICE CLERK Ot 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 09/24/2016 MORENITA FARRIS PRICE CLERK Ot I10 ESSENTIAL (PRIMARY) HYPERTENSION 09/24/2016 MORENITA FARRIS PRICE CLERK Ot R74.8 ABNORMAL LEVELS OF OTHER SERUM ENZYMES 09/24/2016 MORENITA FARRIS PRICE CLERK Ot Z79.899 OTHER PRISON (CURRENT) DRUG THERAPY 09/24/2016 MORENITA FARRIS PRICE CLERK Ot C25.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 09/24/2016 MORENITA FARRIS PRICE CLERK Ot C25.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 09/24/2016 MORENITA FARRIS PRICE CLERK Ot 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 09/24/2016 MORENITA FARRIS PRICE CLERK Ot I10 ESSENTIAL (PRIMARY) HYPERTENSION 09/24/2016 MORENITA FARRISP Ot R74.8 ABNORMAL LEVELS OF OTHER SERUM ENZYMES 09/24/2016 MORENITA FARRISP Ot Z79.899 OTHER PRISON (CURRENT) DRUG THERAPY 09/24/2016 MORENITA FARRISP Ot C25.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 09/24/2016 MORENITA FARRISP Ot 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 09/24/2016 MORENITA FARRISP Ot D64.9 ANEMIA, UNSPECIFIED 09/24/2016 MORENITA FARRISP Ot I10 ESSENTIAL (PRIMARY) HYPERTENSION 09/24/2016 MORENITA FARRISP Ot Z79.899 OTHER MEDICAL INTERPRETER (CURRENT) DRUG THERAPY 09/24/2016 MORENITA FARRISP Ot C25.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 09/24/2016 MARILU PATEANGELICA Reeder Ot C25.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 09/24/2016 XIN PATE Ot 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 09/24/2016 XIN PATE Ot D64.9 ANEMIA, UNSPECIFIED 09/24/2016 XIN PATE Ot Z23 ENCOUNTER FOR IMMUNIZATION 09/24/2016 XIN PATE Ot Z79.899 OTHER PRISON (CURRENT) DRUG THERAPY 09/24/2016 FARRISMORENITA Mckeon PRICE CLERK Ot C25.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 09/29/2016 HERLINDA MARILUANGELICA Reeder Ot C25.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 09/29/2016 XIN PATE Ot 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 09/29/2016 XIN PATE Ot D64.9 ANEMIA, UNSPECIFIED 09/29/2016 XIN PATE Ot Z23 ENCOUNTER FOR IMMUNIZATION 09/29/2016 XIN PATE Ot Z79.899 OTHER MEDICAL INTERPRETER (CURRENT) DRUG THERAPY 09/29/2016 Ot 401.9 HYPERTENSION NOS 09/29/2016 Ot 785.1 PALPITATIONS 09/29/2016 Ot V12.59 HX-CIRCULATORY SYST DIS,NEC 09/29/2016 Ot V15.82 HISTORY OF TOBACCO USE 09/29/2016 YANETH LAZO, JENNIFER Hernandez Ot V76.12 OTH SCREEN MAMMO-MALIGN NEOPLASM OF [place] 09/29/2016 YANETH LAZO, JENNIFER Hernandez Ot 272.4 HYPERLIPIDEMIA NEC/NOS 09/29/2016 YANETH LAZO, JENNIFER Hernandez Ot 414.01 CORONARY 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 09/29/2016 YANETH LAZO, JENNIFER Hernandez Ot [...] V72.84 EXAM PRE-OPERATIVE NOS 09/29/2016 MORENITA FARRIS PRICE CLERK Ot 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 PANCREAS HEAD 09/29/2016 MORENITA FARRIS PRICE CLERK Ot 196.9 MAL LEX LYMPH NODE NOS 09/29/2016 MORENITA FARRIS PRICE CLERK Ot V58.69 OTH MED,LT,CURRENT USE 09/29/2016 Ot 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 PANCREAS HEAD 09/29/2016 Ot 196.9 MAL LEX LYMPH NODE NOS 09/29/2016 Ot 285.9 ANEMIA NOS 09/29/2016 Ot 288.60 LEUKOCYTOSIS, UNSPECIFIED 09/29/2016 Ot 780.60 FEVER, UNSPECIFIED 09/29/2016 Ot 782.4 JAUNDICE NOS 09/29/2016 Ot V58.69 OTH MED,LT,CURRENT USE 09/29/2016 Ot 288.60 LEUKOCYTOSIS, UNSPECIFIED 09/29/2016 Ot 780.60 FEVER, UNSPECIFIED 09/29/2016 FARRIS, HILAH S PRICE CLERK Ot 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 PANCREAS HEAD 09/29/2016 MORENITA FARIRS S PRICE CLERK Ot 196.9 MAL LEX LYMPH NODE NOS 09/29/2016 MORENITA FARRIS S PRICE CLERK Ot 285.9 ANEMIA NOS 09/29/2016 MORENITA FARRIS S PRICE CLERK Ot V58.69 OTH MED,LT,CURRENT USE 09/29/2016 MORENITA FARRIS PRICE CLERK Ot 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 PANCREAS HEAD 09/29/2016 MORENITA FARRIS S PRICE CLERK Ot 196.9 MAL LEX LYMPH NODE NOS 09/29/2016 MORENITA FARRIS S PRICE CLERK Ot 285.9 ANEMIA NOS 09/29/2016 MORENITA FARRIS S PRICE CLERK Ot V58.69 OTH MED,LT,CURRENT USE 09/29/2016 MORENITA FARRIS PRICE CLERK Ot 157.9 MALIG LEX PANCREAS NOS 09/29/2016 MESSI LAZO, ROBERT Ot 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 PANCREAS HEAD 09/29/2016 MESSI LAZO, ROBERT Ot 196.9 MAL LEX LYMPH NODE NOS 09/29/2016 MESSI LAZO, THOMAS-KEVAN Ot 285.9 ANEMIA NOS 09/29/2016 MESSI LAZO, THOMAS-KEVAN Ot V58.69 OTH MED,LT,CURRENT USE 09/29/2016 MORENITA FARRIS PRICE CLERK Ot 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 PANCREAS HEAD 09/29/2016 MORENITA FARRIS S PRICE CLERK Ot 196.9 MAL LEX LYMPH NODE NOS 09/29/2016 MORENITA FARRIS S PRICE CLERK Ot 285.9 ANEMIA NOS 09/29/2016 MORENITA FARRIS PRICE CLERK Ot V58.69 OTH MED,LT,CURRENT USE 09/29/2016 MORENITA FARRIS S PRICE CLERK Ot 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 PANCREAS HEAD 09/29/2016 MORENITA FARRIS S PRICE CLERK Ot 196.9 MAL LEX LYMPH NODE NOS 09/29/2016 MORENITA FARRIS S PRICE CLERK Ot 285.9 ANEMIA NOS 09/29/2016 MORENITA FARRIS S PRICE CLERK Ot V58.69 OTH MED,LT,CURRENT USE 09/29/2016 MORENITA FARRIS PRICE CLERK Ot 157.9 MALIG LEX PANCREAS NOS 09/29/2016 MORENITA FARRIS PRICE CLERK Ot C25.0 MALIGNANT NEOPLASM OF HEAD OF PANCREAS 09/29/2016 MORENITA FARRIS PRICE CLERK Ot 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 09/29/2016 FARRISMORENITA Mckeon PRICE CLERK Ot Z79.899 OTHER PRISON (CURRENT) DRUG THERAPY 09/29/2016 FARRISMORENITA Mckeon PRICE CLERK Ot C25.0 MALIGNANT NEOPLASM OF HEAD OF PANCREAS 09/29/2016 FARRISMORENITA Mckeon PRICE CLERK Ot Z79.899 OTHER PRISON (CURRENT) DRUG THERAPY 09/29/2016 FARRISMORENITA Mckeon PRICE CLERK Ot C25.0 MALIGNANT NEOPLASM OF HEAD OF PANCREAS 09/29/2016 FARRISMORENITA Mckeon PRICE CLERK Ot Z79.899 OTHER MEDICAL INTERPRETER (CURRENT) DRUG THERAPY 09/29/2016 FARRISMORENITA Mckeon PRICE CLERK Ot C25.0 MALIGNANT NEOPLASM OF HEAD OF PANCREAS 09/29/2016 FARRISMORENITA Mckeon PRICE CLERK Ot 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 09/29/2016 KALEIGH MORENITA Mckeon PRICE CLERK Ot 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 09/29/2016 KALEIGH MORENITA Mckeon PRICE CLERK Ot T45.1X5A ADVERSE EFFECT OF ANTINEOPLASTIC AND IMM 09/29/2016 FARRISMORENITA Mckeon PRICE CLERK Ot Z79.899 OTHER MEDICAL INTERPRETER (CURRENT) DRUG THERAPY 09/29/2016 FARRISMORENITA Mckeon PRICE CLERK Ot C25.0 MALIGNANT NEOPLASM OF HEAD OF PANCREAS 09/29/2016 FARRISMORENITA Mckeon PRICE CLERK Ot C25.0 MALIGNANT NEOPLASM OF HEAD OF PANCREAS 09/29/2016 KALEIGH MORENITA Mckeon PRICE CLERK Ot 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 09/29/2016 MORENITA FARRIS Mike PRICE CLERK Ot I10 ESSENTIAL (PRIMARY) HYPERTENSION 09/29/2016 GERA FARRISLATA Mckeon PRICE CLERK Ot Z79.899 OTHER MEDICAL INTERPRETER (CURRENT) DRUG THERAPY 09/29/2016 YANETH LAZO, JENNIFER Hernandez Ot R31.9 HEMATURIA, UNSPECIFIED 09/29/2016 ANCELMO MARION PRICE CLERK Ot I10 ESSENTIAL (PRIMARY) HYPERTENSION 09/29/2016 ANCELMO MARION PRICE CLERK Ot I25.10 ATHSCL HEART DISEASE OF [place] CORONARY 09/29/2016 ANCELMO MARION PRICE CLERK Ot 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 09/29/2016 ANCELMO MARION PRICE CLERK Ot I70.213 ATHSCL [place] ARTERIES OF EXTRM W INTRMT 09/29/2016 ANCELMO MARION PRICE CLERK Ot R00.2 PALPITATIONS 09/29/2016 ANCELMO MARION PRICE CLERK Ot I10 ESSENTIAL (PRIMARY) HYPERTENSION 09/29/2016 ANCELMO MARION PRICE CLERK Ot I25.10 ATHSCL HEART DISEASE OF [place] CORONARY 09/29/2016 ANCELMO MARION PRICE CLERK Ot 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 09/29/2016 ANCELMO MARION PRICE CLERK Ot I70.213 ATHSCL [place] ARTERIES OF EXTRM W INTRMT 09/29/2016 ANCELMO MARION PRICE CLERK Ot R00.2 PALPITATIONS 09/29/2016 MORENITA FARRIS PRICE CLERK Ot C25.0 MALIGNANT NEOPLASM OF HEAD OF PANCREAS 09/29/2016 MORENITA FARRIS PRICE CLERK Ot 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 09/29/2016 MORENITA FARRIS PRICE CLERK Ot I10 ESSENTIAL (PRIMARY) HYPERTENSION 09/29/2016 MORENITA FARRIS PRICE CLERK Ot R74.8 ABNORMAL LEVELS OF OTHER SERUM ENZYMES 09/29/2016 MORENITA FARRIS PRICE CLERK Ot Z79.899 OTHER MEDICAL INTERPRETER (CURRENT) DRUG THERAPY 09/29/2016 MORENITA FARRIS PRICE CLERK Ot C25.0 MALIGNANT NEOPLASM OF HEAD OF PANCREAS 09/29/2016 MORENITA FARRIS PRICE CLERK Ot C25.0 MALIGNANT NEOPLASM OF HEAD OF PANCREAS 09/29/2016 MORENITA FARRISP Ot 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 09/29/2016 MORENITA FARRIS PRICE CLERK Ot I10 ESSENTIAL (PRIMARY) HYPERTENSION 09/29/2016 MORENITA FARRIS PRICE CLERK Ot R74.8 ABNORMAL LEVELS OF OTHER SERUM ENZYMES 09/29/2016 MORENITA FARRIS PRICE CLERK Ot Z79.899 OTHER PRISON (CURRENT) DRUG THERAPY 09/29/2016 MORENITA FARRIS PRICE CLERK Ot C25.0 MALIGNANT NEOPLASM OF HEAD OF PANCREAS 09/29/2016 MORENITA FARRIS PRICE CLERK Ot 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 09/29/2016 MORENITA FARRIS PRICE CLERK Ot D64.9 ANEMIA, UNSPECIFIED 09/29/2016 FARRISMORENITA Mckeon PRICE CLERK Ot I10 ESSENTIAL (PRIMARY) HYPERTENSION 09/29/2016 MORENITA FARRIS PRICE CLERK Ot Z79.899 OTHER MEDICAL INTERPRETER (CURRENT) DRUG THERAPY 09/29/2016 FARRISMORENITA Mckeon PRICE CLERK Ot C25.0 MALIGNANT NEOPLASM OF HEAD OF PANCREAS 09/29/2016 HERLINDAXIN BRAUN N Ot C25.0 MALIGNANT NEOPLASM OF HEAD OF PANCREAS 09/29/2016 HERLINDAXIN BRAUN N Ot 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 09/29/2016 HERLINDAXIN N Ot D64.9 ANEMIA, UNSPECIFIED 09/29/2016 HERLINDA BOBAN N Ot Z23 ENCOUNTER FOR IMMUNIZATION 09/29/2016 HERLINDAXIN BRAUN N Ot Z79.899 OTHER MEDICAL INTERPRETER (CURRENT) DRUG THERAPY 09/29/2016 FARRISMORENITA Mckeon PRICE CLERK Ot C25.0 MALIGNANT NEOPLASM OF HEAD OF PANCREAS 10/14/2016 HERLINDAXIN N Ot C25.0 MALIGNANT NEOPLASM OF HEAD OF PANCREAS 10/14/2016 HERLINDAXIN BRAUN N Ot 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 10/14/2016 HERLINDAXIN N Ot D64.9 ANEMIA, UNSPECIFIED 10/14/2016 HERLINDAMARILUAN N Ot Z23 ENCOUNTER FOR IMMUNIZATION 10/14/2016 XIN PATE N Ot Z79.899 OTHER MEDICAL INTERPRETER (CURRENT) DRUG THERAPY 10/15/2016 GERA FARRISLATA Mckeon PRICE CLERK Ot C25.0 MALIGNANT NEOPLASM OF HEAD OF PANCREAS 10/22/2016 HERLINDAXIN N Ot C25.0 MALIGNANT NEOPLASM OF HEAD OF PANCREAS 10/22/2016 HERLINDAXIN N Ot 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 10/22/2016 HERLINDAXIN N Ot D64.9 ANEMIA, UNSPECIFIED 10/22/2016 HERLINDA BOBAN N Ot Z23 ENCOUNTER FOR IMMUNIZATION 10/22/2016 HERLINDAMARILUAN N Ot Z79.899 OTHER MEDICAL INTERPRETER (CURRENT) DRUG THERAPY 10/22/2016 GERA FARRISLATA Mckeon PRICE CLERK Ot C25.0 MALIGNANT NEOPLASM OF HEAD [...] MANAGEMENT 11/25/2016 XIN PATE Ot Z79.899 OTHER PRISON (CURRENT) DRUG THERAPY 11/26/2016 XIN PATE Ot C25.0 MALIGNANT NEOPLASM OF HEAD OF PANCREAS 11/26/2016 XIN PATE Ot 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 11/26/2016 XIN PATE Ot D64.9 ANEMIA, UNSPECIFIED 11/26/2016 XIN PATE Ot Z23 ENCOUNTER FOR IMMUNIZATION 11/26/2016 XIN PATE Ot Z45.2 ENCOUNTER FOR ADJUSTMENT AND MANAGEMENT 11/26/2016 XIN PATE Ot Z79.899 OTHER MEDICAL INTERPRETER (CURRENT) DRUG THERAPY 12/17/2016 Ot 401.9 HYPERTENSION NOS 12/17/2016 Ot 785.1 PALPITATIONS 12/17/2016 Ot V12.59 HX-CIRCULATORY SYST DIS,NEC 12/17/2016 Ot V15.82 HISTORY OF TOBACCO USE 12/17/2016 YANETH LAZO, JENNIFER Hernandez Ot V76.12 OTH SCREEN MAMMO-MALIGN NEOPLASM OF [place] 12/17/2016 YANETH LAZO, JENNFIER Hernandez Ot 272.4 HYPERLIPIDEMIA NEC/NOS 12/17/2016 YANETH LAZO, JENNIFER Hernandez Ot 414.01 CORONARY 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 12/17/2016 YANETH LAZO, JENNIFER Hernandez Ot [...] EXAM PRE-OPERATIVE NOS 12/17/2016 FARRIS, HILAH S PRICE CLERK Ot 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 PANCREAS HEAD 12/17/2016 MORENITA FARRIS S PRICE CLERK Ot 196.9 MAL LEX LYMPH NODE NOS 12/17/2016 MORENITA FARRIS S PRICE CLERK Ot V58.69 OTH MED,LT,CURRENT USE 12/17/2016 Ot 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 PANCREAS HEAD 12/17/2016 Ot 196.9 MAL LEX LYMPH NODE NOS 12/17/2016 Ot 285.9 ANEMIA NOS 12/17/2016 Ot 288.60 LEUKOCYTOSIS, UNSPECIFIED 12/17/2016 Ot 780.60 FEVER, UNSPECIFIED 12/17/2016 Ot 782.4 JAUNDICE NOS 12/17/2016 Ot V58.69 OTH MED,LT,CURRENT USE 12/17/2016 Ot 288.60 LEUKOCYTOSIS, UNSPECIFIED 12/17/2016 Ot 780.60 FEVER, UNSPECIFIED 12/17/2016 MORENITA FARRIS S PRICE CLERK Ot 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 PANCREAS HEAD 12/17/2016 MORENITA FARRIS S PRICE CLERK Ot 196.9 MAL LEX LYMPH NODE NOS 12/17/2016 MORENITA FARRIS S PRICE CLERK Ot 285.9 ANEMIA NOS 12/17/2016 MORENITA FARRIS S PRICE CLERK Ot V58.69 OTH MED,LT,CURRENT USE 12/17/2016 MORENITA FARRIS S PRICE CLERK Ot 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 PANCREAS HEAD 12/17/2016 MORENITA FARRIS S PRICE CLERK Ot 196.9 MAL LEX LYMPH NODE NOS 12/17/2016 MORENITA FARRIS S PRICE CLERK Ot 285.9 ANEMIA NOS 12/17/2016 MORENITA FRARIS S PRICE CLERK Ot V58.69 OTH MED,LT,CURRENT USE 12/17/2016 MORENITA FARRIS S PRICE CLERK Ot 157.9 MALIG LEX PANCREAS NOS 12/17/2016 ROBERT SWENSON MD Ot 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 PANCREAS HEAD 12/17/2016 ROBERT SWENSON MD Ot 196.9 MAL LEX LYMPH NODE NOS 12/17/2016 ROBERT SWENSON MD Ot 285.9 ANEMIA NOS 12/17/2016 ROBERT SWENSON MD Ot V58.69 OTH MED,LT,CURRENT USE 12/17/2016 MORENITA FARRIS S PRICE CLERK Ot 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 PANCREAS HEAD 12/17/2016 MORENITA FARRIS S PRICE CLERK Ot 196.9 MAL LEX LYMPH NODE NOS 12/17/2016 MORENITA FARRIS PRICE CLERK Ot 285.9 ANEMIA NOS 12/17/2016 MORENITA FARRISP Ot V58.69 OTH MED,LT,CURRENT USE 12/17/2016 MORENITA FARRIS PRICE CLERK Ot 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 PANCREAS HEAD 12/17/2016 MORENITA FARRIS PRICE CLERK Ot 196.9 MAL LEX LYMPH NODE NOS 12/17/2016 MORENITA FARRISP Ot 285.9 ANEMIA NOS 12/17/2016 MORENITA FARRISP Ot V58.69 OTH MED,LT,CURRENT USE 12/17/2016 MORENITA FARRIS PRICE CLERK Ot 157.9 MALIG LEX PANCREAS NOS 12/17/2016 MORENITA FARRIS PRICE CLERK Ot C25.0 MALIGNANT NEOPLASM OF HEAD OF PANCREAS 12/17/2016 MORENITA FARRISP Ot 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 12/17/2016 MORENITA FARRIS PRICE CLERK Ot Z79.899 OTHER PRISON (CURRENT) DRUG THERAPY 12/17/2016 MORENITA FARRISP Ot C25.0 MALIGNANT NEOPLASM OF HEAD OF PANCREAS 12/17/2016 MORENITA FARRIS PRICE CLERK Ot Z79.899 OTHER PRISON (CURRENT) DRUG THERAPY 12/17/2016 MORENITA FARRIS PRICE CLERK Ot C25.0 MALIGNANT NEOPLASM OF HEAD OF PANCREAS 12/17/2016 MORENITA FARRIS PRICE CLERK Ot Z79.899 OTHER MEDICAL INTERPRETER (CURRENT) DRUG THERAPY 12/17/2016 MORENITA FARRIS PRICE CLERK Ot C25.0 MALIGNANT NEOPLASM OF HEAD OF PANCREAS 12/17/2016 MORENITA FARRIS PRICE CLERK Ot 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 12/17/2016 MORENITA FARRISP Ot 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 12/17/2016 MORENITA FARRISP Ot T45.1X5A ADVERSE EFFECT OF ANTINEOPLASTIC AND IMM 12/17/2016 MORENITA FARRIS PRICE CLERK Ot Z79.899 OTHER MEDICAL INTERPRETER (CURRENT) DRUG THERAPY 12/17/2016 MORENITA FARRIS PRICE CLERK Ot C25.0 MALIGNANT NEOPLASM OF HEAD OF PANCREAS 12/17/2016 FARRIS, HILAH S PRICE CLERK Ot C25.0 MALIGNANT NEOPLASM OF HEAD OF PANCREAS 12/17/2016 MORENITA FARRISP Ot 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 12/17/2016 MORENITA FARRIS PRICE CLERK Ot I10 ESSENTIAL (PRIMARY) HYPERTENSION 12/17/2016 MORENITA FARRISP Ot Z79.899 OTHER PRISON (CURRENT) DRUG THERAPY 12/17/2016 YANETH LAZO, JENNIFER Hernandez Ot R31.9 HEMATURIA, UNSPECIFIED 12/17/2016 LOREANCELMO CONROY L PRICE CLERK Ot I10 ESSENTIAL (PRIMARY) HYPERTENSION 12/17/2016 BAIANCELMO CONROY L PRICE CLERK Ot I25.10 ATHSCL HEART DISEASE OF [place] CORONARY 12/17/2016 BAIREENA CONROYHER L PRICE CLERK Ot 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 12/17/2016 REENA MARIONHER L PRICE CLERK Ot I70.213 ATHSCL [place] ARTERIES OF [facility] 12/17/2016 LOREANCELMO CONROY L PRICE CLERK Ot R00.2 PALPITATIONS 12/17/2016 DONI ANCELMO L PRICE CLERK Ot I10 ESSENTIAL (PRIMARY) HYPERTENSION 12/17/2016 ANCELMO MARION L PRICE CLERK Ot I25.10 ATHSCL HEART DISEASE OF [place] CORONARY 12/17/2016 BAIANCELMO CONROY L PRICE CLERK Ot 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 12/17/2016 BAIMAREENAANCELMO L PRICE CLERK Ot I70.213 ATHSCL [place] ARTERIES OF [facility] 12/17/2016 LOREANCELMO CONROY L PRICE CLERK Ot R00.2 PALPITATIONS 12/17/2016 MORENITA FARRIS PRICE CLERK Ot C25.0 MALIGNANT NEOPLASM OF HEAD OF PANCREAS 12/17/2016 MORENITA FARRIS PRICE CLERK Ot 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 12/17/2016 MORENITA FARRIS PRICE CLERK Ot I10 ESSENTIAL (PRIMARY) HYPERTENSION 12/17/2016 MORENITA FARRISP Ot R74.8 ABNORMAL LEVELS OF OTHER SERUM ENZYMES 12/17/2016 MORENITA FARRISP Ot Z79.899 OTHER MEDICAL INTERPRETER (CURRENT) DRUG THERAPY 12/17/2016 MORENITA FARRIS PRICE CLERK Ot C25.0 MALIGNANT NEOPLASM OF HEAD OF PANCREAS 12/17/2016 MORENITA FARRISP Ot C25.0 MALIGNANT NEOPLASM OF HEAD OF PANCREAS 12/17/2016 MORENITA FARRISP Ot 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 12/17/2016 MORENITA FARRIS PRICE CLERK Ot I10 ESSENTIAL (PRIMARY) HYPERTENSION 12/17/2016 MORENITA FARRISP Ot R74.8 ABNORMAL LEVELS OF OTHER SERUM ENZYMES 12/17/2016 MORENITA FARRISP Ot Z79.899 OTHER MEDICAL INTERPRETER (CURRENT) DRUG THERAPY 12/17/2016 MORENITA FARRIS PRICE CLERK Ot C25.0 MALIGNANT NEOPLASM OF HEAD OF PANCREAS 12/17/2016 MORENITA FARRISP Ot 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 12/17/2016 MORENITA FARRISP Ot D64.9 ANEMIA, UNSPECIFIED 12/17/2016 MORENITA FARRISP Ot I10 ESSENTIAL (PRIMARY) HYPERTENSION 12/17/2016 MORENITA FARRISP Ot Z79.899 OTHER PRISON (CURRENT) DRUG THERAPY 12/17/2016 MORENITA FARRISP Ot C25.0 MALIGNANT NEOPLASM OF HEAD OF PANCREAS 12/17/2016 MORENITA FARRIS PRICE CLERK Ot C25.0 MALIGNANT NEOPLASM OF HEAD OF PANCREAS 12/17/2016 XIN PATE Lilli Ot C25.0 MALIGNANT NEOPLASM OF HEAD OF PANCREAS 12/17/2016 HERLINDAXIN Ot 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 12/17/2016 XIN PATE Ot D64.9 ANEMIA, UNSPECIFIED 12/17/2016 XIN PATE Ot Z23 ENCOUNTER FOR IMMUNIZATION 12/17/2016 XIN PATE Ot Z79.899 OTHER MEDICAL INTERPRETER (CURRENT) DRUG THERAPY 12/17/2016 Ot 401.9 HYPERTENSION NOS 12/17/2016 Ot 785.1 PALPITATIONS 12/17/2016 Ot V12.59 HX-CIRCULATORY SYST DIS,NEC 12/17/2016 Ot V15.82 HISTORY OF TOBACCO USE 12/17/2016 YANETH LAZO, JENNIFER Hernandez Ot V76.12 OTH SCREEN MAMMO-MALIGN NEOPLASM OF [place] 12/17/2016 YANETH LAZO, JENNIFER Hernandez Ot 272.4 HYPERLIPIDEMIA NEC/NOS 12/17/2016 JENNIFER WOLFE MD Ot 414.01 CORONARY 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 12/17/2016 YANETH LAZO, JENNIFER Hernandez Ot [...] V72.84 EXAM PRE-OPERATIVE NOS 12/17/2016 FARRISGERAAH S PRICE CLERK Ot 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 PANCREAS HEAD 12/17/2016 FARRIS HILAH S PRICE CLERK Ot 196.9 MAL LEX LYMPH NODE NOS 12/17/2016 FARRIS, HILAH S PRICE CLERK Ot V58.69 OTH MED,LT,CURRENT USE 12/17/2016 Ot 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 PANCREAS HEAD 12/17/2016 Ot 196.9 MAL LEX LYMPH NODE NOS 12/17/2016 Ot 285.9 ANEMIA NOS 12/17/2016 Ot 288.60 LEUKOCYTOSIS, UNSPECIFIED 12/17/2016 Ot 780.60 FEVER, UNSPECIFIED 12/17/2016 Ot 782.4 JAUNDICE NOS 12/17/2016 Ot V58.69 OTH MED,LT,CURRENT USE 12/17/2016 Ot 288.60 LEUKOCYTOSIS, UNSPECIFIED 12/17/2016 Ot 780.60 FEVER, UNSPECIFIED 12/17/2016 FARRISGERAAH S PRICE CLERK Ot 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 PANCREAS HEAD 12/17/2016 FARRIS HILAH S PRICE CLERK Ot 196.9 MAL LEX LYMPH NODE NOS 12/17/2016 FARRIS HILAH S PRICE CLERK Ot 285.9 ANEMIA NOS 12/17/2016 FARRISGERAAH S PRICE CLERK Ot V58.69 OTH MED,LT,CURRENT USE 12/17/2016 FARRIS HILAH S PRICE CLERK Ot 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 PANCREAS HEAD 12/17/2016 FARRIS HILAH S PRICE CLERK Ot 196.9 MAL LEX LYMPH NODE NOS 12/17/2016 FARRIS HILAH S PRICE CLERK Ot 285.9 ANEMIA NOS 12/17/2016 MORENITA FARRIS PRICE CLERK Ot V58.69 OTH MED,LT,CURRENT USE 12/17/2016 MORENITA FARRIS S PRICE CLERK Ot 157.9 MALIG LEX PANCREAS NOS 12/17/2016 MESSI LAZO, THOMAS-EKVAN Ot 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 PANCREAS HEAD 12/17/2016 MESSI LAZO, THOMAS-KEVAN Ot 196.9 MAL LEX LYMPH NODE NOS 12/17/2016 MESSI LAZO, ROBERT Ot 285.9 ANEMIA NOS 12/17/2016 MESSI LAZO, ROBERT Ot V58.69 OTH MED,LT,CURRENT USE 12/17/2016 MORENITA FARRIS S PRICE CLERK Ot 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 PANCREAS HEAD 12/17/2016 MORENITA FARRIS S PRICE CLERK Ot 196.9 MAL LEX LYMPH NODE NOS 12/17/2016 MORENITA FARRIS S PRICE CLERK Ot 285.9 ANEMIA NOS 12/17/2016 MORENITA FARRIS S PRICE CLERK Ot V58.69 OTH MED,LT,CURRENT USE 12/17/2016 MORENITA FARRIS PRICE CLERK Ot 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 PANCREAS HEAD 12/17/2016 MORENITA FARRIS S PRICE CLERK Ot 196.9 MAL LEX LYMPH NODE NOS 12/17/2016 MORENITA FARRIS S PRICE CLERK Ot 285.9 ANEMIA NOS 12/17/2016 MORENITA FARRIS S PRICE CLERK Ot V58.69 OTH MED,LT,CURRENT USE 12/17/2016 MORENITA FARRIS S PRICE CLERK Ot 157.9 MALIG LEX PANCREAS NOS 12/17/2016 MORENITA FARRIS PRICE CLERK Ot C25.0 MALIGNANT NEOPLASM OF HEAD OF PANCREAS 12/17/2016 MORENITA FARRIS PRICE CLERK Ot 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 12/17/2016 MORENITA FARRIS PRICE CLERK Ot Z79.899 OTHER PRISON (CURRENT) DRUG THERAPY 12/17/2016 MORENITA FARRIS S PRICE CLERK Ot C25.0 MALIGNANT NEOPLASM OF HEAD OF PANCREAS 12/17/2016 MORENITA FARRIS S PRICE CLERK Ot Z79.899 OTHER MEDICAL INTERPRETER (CURRENT) DRUG THERAPY 12/17/2016 MORENITA FARRIS PRICE CLERK Ot C25.0 MALIGNANT NEOPLASM OF HEAD OF PANCREAS 12/17/2016 MORENITA FARRIS PRICE CLERK Ot Z79.899 OTHER PRISON (CURRENT) DRUG THERAPY 12/17/2016 MORENITA FARRIS PRICE CLERK Ot C25.0 MALIGNANT NEOPLASM OF HEAD OF PANCREAS 12/17/2016 MORENITA FARRISP Ot 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 12/17/2016 MORENITA FARRISP Ot 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 12/17/2016 MORENITA FARRISP Ot T45.1X5A ADVERSE EFFECT OF ANTINEOPLASTIC AND IMM 12/17/2016 MORENITA FARRIS PRICE CLERK Ot Z79.899 OTHER PRISON (CURRENT) DRUG THERAPY 12/17/2016 MORENITA FARRIS PRICE CLERK Ot C25.0 MALIGNANT NEOPLASM OF HEAD OF PANCREAS 12/17/2016 MORENITA FARRISP Ot C25.0 MALIGNANT NEOPLASM OF HEAD OF PANCRE[place] 12/17/2016 MORENITA FARRISP Ot 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 12/17/2016 MORENITA FARRIS PRICE CLERK Ot I10 ESSENTIAL (PRIMARY) HYPERTENSION 12/17/2016 MORENITA FARRIS PRICE CLERK Ot Z79.899 OTHER MEDICAL INTERPRETER (CURRENT) DRUG THERAPY 12/17/2016 YANETH LAZO, JENNIFER Hernandez Ot R31.9 HEMATURIA, UNSPECIFIED 12/17/2016 ANCELMO MARION L PRICE CLERK Ot I10 ESSENTIAL (PRIMARY) HYPERTENSION 12/17/2016 ANCELMO MARION PRICE CLERK Ot I25.10 ATHSCL HEART DISEASE OF [place] CORONARY 12/17/2016 ANCELMO MARION PRICE CLERK Ot 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 12/17/2016 ANCELMO MARION L PRICE CLERK Ot I70.213 ATHSCL [place] ARTERIES OF [facility] 12/17/2016 ANCELMO MARION L PRICE CLERK Ot R00.2 PALPITATIONS 12/17/2016 ANCELMO MARION L PRICE CLERK Ot I10 ESSENTIAL (PRIMARY) HYPERTENSION 12/17/2016 ANCELMO MARION L PRICE CLERK Ot I25.10 ATHSCL HEART DISEASE OF [place] CORONARY 12/17/2016 ANCELMO MARION L PRICE CLERK Ot 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 12/17/2016 ANCELMO MARION L PRICE CLERK Ot I70.213 ATHSCL [place] ARTERIES OF EXTRM W INTRMT 12/17/2016 ANCELMO MARION PRICE CLERK Ot R00.2 PALPITATIONS 12/17/2016 MORENITA FARRIS PRICE CLERK Ot C25.0 MALIGNANT NEOPLASM OF HEAD OF PANCREAS 12/17/2016 MORENITA FARRIS PRICE CLERK Ot 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 12/17/2016 MORENITA FARRIS PRICE CLERK Ot I10 ESSENTIAL (PRIMARY) HYPERTENSION 12/17/2016 MORENITA FARRIS PRICE CLERK Ot R74.8 ABNORMAL LEVELS OF OTHER SERUM ENZYMES 12/17/2016 MORENITA FARRIS S PRICE CLERK Ot Z79.899 OTHER MEDICAL INTERPRETER (CURRENT) DRUG THERAPY 12/17/2016 MORENITA FARRIS PRICE CLERK Ot C25.0 MALIGNANT NEOPLASM OF HEAD OF PANCREAS 12/17/2016 MORENITA FARRIS PRICE CLERK Ot C25.0 MALIGNANT NEOPLASM OF HEAD OF PANCREAS 12/17/2016 MORENITA FARRIS PRICE CLERK Ot 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 12/17/2016 MORENITA FARRIS PRICE CLERK Ot I10 ESSENTIAL (PRIMARY) HYPERTENSION 12/17/2016 MORENITA FARRIS PRICE CLERK Ot R74.8 ABNORMAL LEVELS OF OTHER SERUM ENZYMES 12/17/2016 MORENITA FARRIS PRICE CLERK Ot Z79.899 OTHER PRISON (CURRENT) DRUG THERAPY 12/17/2016 MORENITA FARRIS PRICE CLERK Ot C25.0 MALIGNANT NEOPLASM OF HEAD OF PANCREAS 12/17/2016 MORENITA FARRIS PRICE CLERK Ot 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 12/17/2016 MORENITA FARRIS PRICE CLERK Ot D64.9 ANEMIA, UNSPECIFIED 12/17/2016 MOERNITA FARRIS PRICE CLERK Ot I10 ESSENTIAL (PRIMARY) HYPERTENSION 12/17/2016 MORENITA FARRIS PRICE CLERK Ot Z79.899 OTHER MEDICAL INTERPRETER (CURRENT) DRUG THERAPY 12/17/2016 MORENITA FARRIS PRICE CLERK Ot C25.0 MALIGNANT NEOPLASM OF HEAD OF PANCREAS 12/17/2016 MORENITA FARRIS S PRICE CLERK Ot C25.0 MALIGNANT NEOPLASM OF HEAD OF PANCREAS 12/17/2016 XIN PATE Ot C25.0 MALIGNANT NEOPLASM OF HEAD OF PANCREAS 12/17/2016 XIN PATE Ot 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 12/17/2016 XIN PATE N Ot D64.9 ANEMIA, UNSPECIFIED 12/17/2016 XIN PATE Lilli Ot Z23 ENCOUNTER FOR IMMUNIZATION 12/17/2016 XIN PATE Lilli Ot Z79.899 OTHER PRISON (CURRENT) DRUG THERAPY 12/18/2016 MORENITA FARRIS S PRICE CLERK Ot C25.0 MALIGNANT NEOPLASM OF HEAD OF PANCREAS 12/18/2016 FARRISMORENITA S PRICE CLERK Ot R22.2 LOCALIZED SWELLING, MASS AND LUMP, TRUNK 12/18/2016 FARRISMORENITA S PRICE CLERK Ot R59.0 LOCALIZED ENLARGED LYMPH NODES 12/18/2016 FARRISMORENITA S PRICE CLERK Ot R91.8 OTHER NONSPECIFIC ABNORMAL FINDING OF VIKKI 12/18/2016 XIN PATE N Ot C25.0 MALIGNANT NEOPLASM OF HEAD OF PANCREAS 12/18/2016 XIN PATE Lilli Ot 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 12/18/2016 XIN PATE Lilli Ot D64.9 ANEMIA, UNSPECIFIED 12/18/2016 XIN PATE Lilli Ot Z79.899 OTHER PRISON (CURRENT) DRUG THERAPY 12/18/2016 FARRISMORENITA S PRICE CLERK Ot C25.0 MALIGNANT NEOPLASM OF HEAD OF PANCREAS 12/18/2016 FARRISMORENITA S PRICE CLERK Ot R22.2 LOCALIZED SWELLING, MASS AND LUMP, TRUNK 12/18/2016 FARRISMORENITA S PRICE CLERK Ot R59.0 LOCALIZED ENLARGED LYMPH NODES 12/18/2016 FARRISMORENITA S PRICE CLERK Ot R91.8 OTHER NONSPECIFIC ABNORMAL FINDING OF VIKKI 12/30/2016 XIN PATE N Ot C25.0 MALIGNANT NEOPLASM OF HEAD OF PANCREAS 12/30/2016 XNI PATE Lilli Ot 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 12/30/2016 XIN PATE N Ot D64.9 ANEMIA, UNSPECIFIED 12/30/2016 XIN PATE Lilli Ot Z79.899 OTHER MEDICAL INTERPRETER (CURRENT) DRUG THERAPY 01/07/2017 FARRISMORENITA S PRICE CLERK Ot C25.0 MALIGNANT NEOPLASM OF HEAD OF PANCREAS 01/07/2017 FARRIS MORENITA S PRICE CLERK Ot R22.2 LOCALIZED SWELLING, MASS AND LUMP, TRUNK 01/07/2017 FARRIS MORENITA S PRICE CLERK Ot R59.0 LOCALIZED ENLARGED LYMPH NODES 01/07/2017 MORENITA FARRIS PRICE CLERK Ot R91.8 OTHER NONSPECIFIC ABNORMAL FINDING OF VIKKI 01/14/2017 MORENITA FARRIS PRICE CLERK Ot C25.0 MALIGNANT NEOPLASM OF HEAD OF PANCREAS 01/14/2017 MORENITA FARRIS PRICE CLERK Ot R22.2 LOCALIZED SWELLING, MASS AND LUMP, TRUNK 01/14/2017 MORENITA FARRIS PRICE CLERK Ot R59.0 LOCALIZED ENLARGED LYMPH NODES 01/14/2017 MORENITA FARRIS PRICE CLERK Ot R91.8 OTHER NONSPECIFIC ABNORMAL FINDING OF VIKKI 01/21/2017 XIN PATE Lilli Ot C25.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 01/21/2017 HERLINDAXIN Ot 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 01/21/2017 HERLINDAXIN Ot D64.9 ANEMIA, UNSPECIFIED 01/21/2017 XIN PATE Ot Z79.899 OTHER PRISON (CURRENT) DRUG THERAPY 01/23/2017 RONEL MARES LOCUM TENENS PSYCHIATRIST Ot 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, UNSPECIF 01/23/2017 RONEL MARES APRN Ot I10 ESSENTIAL (PRIMARY) HYPERTENSION 01/23/2017 RONEL MARES APRN Ot M47.814 SPONDYLOSIS W/O MYELOPATHY OR RADICULOPA 01/23/2017 RONEL MARES LOCUM TENENS PSYCHIATRIST Ot M47.816 SPONDYLOSIS W/O MYELOPATHY OR RADICULOPA 01/23/2017 RONEL MARES APRN Ot M54.6 PAIN IN THORACIC SPINE 01/23/2017 RONEL MARES LOCUM TENENS PSYCHIATRIST Ot Z79.899 OTHER MEDICAL INTERPRETER (CURRENT) DRUG THERAPY 01/25/2017 RONEL MARES APRN Ot 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, UNSPECIF 01/25/2017 RONEL MARES LOCUM TENENS PSYCHIATRIST Ot I10 ESSENTIAL (PRIMARY) HYPERTENSION 01/25/2017 RONEL MARES APRN Ot M47.814 SPONDYLOSIS W/O MYELOPATHY OR RADICULOPA 01/25/2017 RONEL MARES LOCUM TENENS PSYCHIATRIST Ot M47.816 SPONDYLOSIS W/O MYELOPATHY OR RADICULOPA 01/25/2017 RONEL MARES LOCUM TENENS PSYCHIATRIST Ot M54.6 PAIN IN THORACIC SPINE 01/25/2017 RONEL MARES APRN Ot Z79.899 OTHER PRISON (CURRENT) DRUG THERAPY 02/08/2017 XIN PATE Ot C25.0 MALIGNANT NEOPLASM OF HEAD OF PANCREAS 02/08/2017 XIN PATE Ot 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 02/08/2017 XIN PATE Ot D64.9 ANEMIA, UNSPECIFIED 02/08/2017 XIN PATE Ot Z79.899 OTHER PRISON (CURRENT) DRUG THERAPY 02/10/2017 ITZEL SCOTT DO, Ot 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, UNSPECIF 02/10/2017 ITZEL SCOTT DO, Ot I10 ESSENTIAL (PRIMARY) HYPERTENSION 02/10/2017 ITZEL SCOTT DO, Ot M47.816 SPONDYLOSIS W/O MYELOPATHY OR RADICULOPA 02/10/2017 ITZEL SCOTT DO, Ot N39.0 URINARY TRACT INFECTION, SITE NOT SPECIF 02/10/2017 ITZEL SCOTT DO, Ot S22.070A WEDGE COMPRESSION FRACTURE OF T9-T10 ANKIT 02/10/2017 ITZEL SCOTT DO, Ot X50.9XXA OTHER AND UNSPECIFIED OVREXRTN OR STRNOU 02/10/2017 ITZEL SCOTT DO, Ot Y92.[address] SINGLE-FAMILY ( [facility] 02/10/2017 ITZEL SCOTT DO, Ot Y99.8 OTHER EXTERNAL CAUSE STATUS 02/10/2017 ITZEL SCOTT DO, Ot Z79.899 OTHER PRISON (CURRENT) DRUG THERAPY 02/10/2017 XIN PATE Ot C25.0 MALIGNANT NEOPLASM OF HEAD OF PANCREAS 02/10/2017 XIN PATE Ot 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 02/10/2017 XIN PATE Ot D64.9 ANEMIA, UNSPECIFIED 02/10/2017 XIN PATE Ot Z79.899 OTHER PRISON (CURRENT) DRUG THERAPY 02/11/2017 ITZEL SCOTT DO, Ot 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, UNSPECIF 02/11/2017 ITZEL SCOTT DO, Ot I10 ESSENTIAL (PRIMARY) HYPERTENSION 02/11/2017 ITZEL SCOTT DO, Ot M47.816 SPONDYLOSIS W/O MYELOPATHY OR RADICULOPA 02/11/2017 ITZEL SCOTT DO Ot N39.0 URINARY TRACT INFECTION, SITE NOT SPECIF 02/11/2017 ITZEL SCOTT DO Ot S22.070A WEDGE COMPRESSION FRACTURE OF T9-T10 ANKIT 02/11/2017 ITZEL SCOTT DO Ot X50.9XXA OTHER AND UNSPECIFIED OVREXRTN OR STRNOU 02/11/2017 ITZEL SCOTT DO Ot Y92.[address] TO SINGLE-FAMILY ( [facility] 02/11/2017 ITZEL SCOTT DO Ot Y99.8 OTHER EXTERNAL CAUSE STATUS 02/11/2017 ITZEL SCOTT DO Ot Z79.899 OTHER PRISON (CURRENT) DRUG THERAPY 02/13/2017 ITZEL SCOTT DO Ot 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, UNSPECIF 02/13/2017 ITZEL SCOTT DO Ot I10 ESSENTIAL (PRIMARY) HYPERTENSION 02/13/2017 ITZEL SCOTT DO Ot M47.816 SPONDYLOSIS W/O MYELOPATHY OR RADICULOPA 02/13/2017 ITZEL SCOTT DO Ot N39.0 URINARY TRACT INFECTION, SITE NOT SPECIF 02/13/2017 ITZEL SCOTT DO Ot S22.070A WEDGE COMPRESSION FRACTURE OF T9-T10 ANKIT 02/13/2017 ITZEL SCOTT DO Ot X50.9XXA OTHER AND UNSPECIFIED OVREXRTN OR STRNOU 02/13/2017 ITZEL SCOTT DO Ot Y92.[address] TO SINGLE-FAMILY ( [facility] 02/13/2017 ITZEL SCOTT DO Ot Y99.8 OTHER EXTERNAL CAUSE STATUS 02/13/2017 ITZEL SCOTT DO Ot Z79.899 OTHER MEDICAL INTERPRETER (CURRENT) DRUG THERAPY 02/17/2017 ITZEL SCOTT DO Ot 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, UNSPECIF 02/17/2017 ITZEL SCOTT DO Ot I10 ESSENTIAL (PRIMARY) HYPERTENSION 02/17/2017 ITZEL SCOTT DO Ot M47.816 SPONDYLOSIS W/O MYELOPATHY OR RADICULOPA 02/17/2017 ITZEL SCOTT DO Ot N39.0 URINARY TRACT INFECTION, SITE NOT SPECIF 02/17/2017 ITZEL SCOTT DO Ot S22.070A WEDGE COMPRESSION FRACTURE OF T9-T10 ANKIT 02/17/2017 ITZEL SCOTT DO Ot X50.9XXA OTHER AND UNSPECIFIED OVREXRTN OR STRNOU 02/17/2017 SONIA HERNANDEZ ITZEL Fisher Ot Y92.[address] TO SINGLE-FAMILY ( [facility] 02/17/2017 ITZEL SCOTT DO Ot Y99.8 OTHER EXTERNAL CAUSE STATUS 02/17/2017 SONIA HERNANDEZ ITZEL Fisher Ot Z79.899 OTHER PRISON (CURRENT) DRUG THERAPY 02/17/2017 SONIA DO ITZEL Phillip Ot 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, UNSPECIF 02/17/2017 SONIA ITZEL HERNANDEZ Ot I10 ESSENTIAL (PRIMARY) HYPERTENSION 02/17/2017 SONIA DO ITZEL Phillip Ot M47.816 SPONDYLOSIS W/O MYELOPATHY OR RADICULOPA 02/17/2017 SONIA DO ITZEL Phillip Ot N39.0 URINARY TRACT INFECTION, SITE NOT SPECIF 02/17/2017 SONIA DO ITZEL Phillip Ot S22.070A WEDGE COMPRESSION FRACTURE OF T9-T10 ANKIT 02/17/2017 SONIA DO ITZEL Phillip Ot X50.9XXA OTHER AND UNSPECIFIED OVREXRTN OR STRNOU 02/17/2017 SONIA DO ITZEL Phillip Ot Y92.[address] TO SINGLE-FAMILY ( [facility] 02/17/2017 SONIA DO ITZEL Fisher Ot Y99.8 OTHER EXTERNAL CAUSE STATUS 02/17/2017 SONIA DO ITZEL Phillip Ot Z79.899 OTHER MEDICAL INTERPRETER (CURRENT) DRUG THERAPY 02/17/2017 ERICKA MONTGOMERY MD Ot 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, UNSPECIF 02/17/2017 ERICKA MONTGOMERY MD Ot I10 ESSENTIAL (PRIMARY) HYPERTENSION 02/17/2017 ERICKA MONTGOMERY MD Ot I73.9 PERIPHERAL VASCULAR DISEASE, UNSPECIFIED 02/17/2017 ERICKA MONTGOMERY MD Ot K21.9 GASTRO-ESOPHAGEAL REFLUX DISEASE WITHOUT 02/17/2017 ERICKA MONTGOMERY MD Ot S22.070D WEDGE COMPRSN FX T9-T10 VERTEBRA, SUBS F 02/17/2017 ERICKA MONTGOMERY MD Ot X50.0XXD OVEREXERTION FROM STRENUOUS MOVEMENT OR 02/17/2017 ERICKA MONTGOMERY MD Ot Z86.711 PERSONAL HISTORY OF PULMONARY EMBOLISM 02/17/2017 ERICKA MONTGOMERY MD Ot Z86.718 PERSONAL HISTORY OF OTHER VENOUS THROMBO Procedures Code Description Performed By Performed On [...] - 02/04/17 19:25 Lipase 4 U/L 8-78 Automated blood complete blood count (hemogram) panel - 02/06/17 05:48 Blood leukocytes automated count (number/volume) 7.2 10*3/ uL 4.3-11.0 Blood erythrocytes automated count (number/volume) 2.84 10*6 /uL 4.35-5.85 Venous blood hemoglobin measurement (mass/volume) 9.0 g/dL 11.5-16.0 Blood hematocrit (volume fraction) 27 % 35-52 Automated erythrocyte mean corpuscular volume 95 [foz_us] 80-99 Automated erythrocyte mean corpuscular hemoglobin (mass per erythrocyte) 32 pg 25-34 Automated erythrocyte mean corpuscular hemoglobin concentration measurement ( mass/volume) 33 g/dL 32-36 Automated erythrocyte distribution width ratio 16.1 % 10.0-14.5 Automated blood platelet count (count/volume) 199 10*3/uL 130-400 Automated blood platelet mean volume measurement 9.3 [foz_us ] 7.4-10.4 Comprehensive metabolic panel - 02/06/17 05:48 Serum or plasma sodium measurement (moles/volume) 139 mmol/ L 135-145 Serum or plasma potassium measurement (moles/volume) 4.3 mmol/L 3.6-5.0 Serum or plasma chloride measurement (moles/volume) 107 mmol /L 98-107 Carbon dioxide 25 mmol/L 21-32 Serum or plasma anion gap determination (moles/volume) 7 mmol/L 5-14 Serum or plasma urea nitrogen measurement (mass/volume) 19 mg/dL 7-18 Serum or plasma creatinine measurement (mass/volume) 0.89 mg /dL 0.60-1.30 Serum or plasma urea nitrogen/creatinine mass ratio 21 NRG Serum or plasma creatinine measurement with calculation of estimated glomerular filtration rate > NRG Serum or plasma glucose measurement (mass/volume) 87 mg/dL 70-105 Serum or plasma calcium measurement (mass/volume) 8.4 mg/dL 8.5-10.1 Serum or plasma total bilirubin measurement (mass/volume) 0.8 mg/dL 0.1-1.0 Serum or plasma alkaline phosphatase measurement (enzymatic activity/volume) 77 U/L 40-136 Serum or plasma aspartate aminotransferase measurement (enzymatic activity/ volume) 16 U/L 5-34 Serum or plasma alanine aminotransferase measurement (enzymatic activity/volume ) 9 U/L 0-55 Serum or plasma protein measurement (mass/volume) 5.3 g/dL 6.4-8.2 Serum or plasma albumin measurement (mass/volume) 2.8 g/dL 3.2-4.5 Methicillin resistant Staphylococcus aureus (MRSA) screening culture - 09:40 Methicillin resistant Staphylococcus aureus (MRSA) screening culture NEG NRG Automated blood complete blood count (hemogram) panel - 02/08/17 05:35 Blood leukocytes automated count (number/volume) 7.1 10*3/ uL 4.3-11.0 Blood erythrocytes automated count (number/volume) 2.91 10*6 /uL 4.35-5.85 Venous blood hemoglobin measurement (mass/volume) 9.2 g/dL 11.5-16.0 Blood hematocrit (volume fraction) 28 % 35-52 Automated erythrocyte mean corpuscular volume 97 [foz_us] 80-99 Automated erythrocyte mean corpuscular hemoglobin (mass per erythrocyte) 32 pg 25-34 Automated erythrocyte mean corpuscular hemoglobin concentration measurement ( mass/volume) 33 g/dL 32-36 Automated erythrocyte distribution width ratio 16.4 % 10.0-14.5 Automated blood platelet count (count/volume) 226 10*3/uL 130-400 Automated blood platelet mean volume measurement 9.2 [foz_us ] 7.4-10.4 Whole blood basic metabolic panel - 02/08/17 05:35 Serum or plasma sodium measurement (moles/volume) 140 mmol/ L 135-145 Serum or plasma potassium measurement (moles/volume) 4.0 mmol/L 3.6-5.0 Serum or plasma chloride measurement (moles/volume) 109 mmol /L 98-107 Carbon dioxide 24 mmol/L 21-32 Serum or plasma anion gap determination (moles/volume) 7 mmol/L 5-14 Serum or plasma urea nitrogen measurement (mass/volume) 14 mg/dL 7-18 Serum or plasma creatinine measurement (mass/volume) 0.89 mg /dL 0.60-1.30 Serum or plasma urea nitrogen/creatinine mass ratio 16 NRG Serum or plasma creatinine measurement with calculation of estimated glomerular filtration rate > NRG Serum or plasma glucose measurement (mass/volume) 85 mg/dL 70-105 Serum or plasma calcium measurement (mass/volume) 8.4 mg/dL 8.5-10.1 Complete blood count (CBC) with automated white blood cell (WBC) differential - 02/09/17 05:35 Blood leukocytes automated count (number/volume) 9.7 10*3/ uL 4.3-11.0 Blood erythrocytes automated count (number/volume) 2.96 10*6 /uL 4.35-5.85 Venous blood hemoglobin measurement (mass/volume) 9.5 g/dL 11.5-16.0 Blood hematocrit (volume fraction) 28 % 35-52 Automated erythrocyte mean corpuscular volume 96 [foz_us] 80-99 Automated erythrocyte mean corpuscular hemoglobin (mass per erythrocyte) 32 pg 25-34 Automated erythrocyte mean corpuscular hemoglobin concentration measurement ( mass/volume) 34 g/dL 32-36 Automated erythrocyte distribution width ratio 16.4 % 10.0-14.5 Automated blood platelet count (count/volume) 243 10*3/uL 130-400 Automated blood platelet mean volume measurement 9.4 [foz_us ] 7.4-10.4 Automated blood neutrophils/100 leukocytes 55 % 42-75 Automated blood lymphocytes/100 leukocytes 21 % 12-44 Blood monocytes/100 leukocytes 17 % 0-12 Automated blood eosinophils/100 leukocytes 6 % 0-10 Automated blood basophils/100 leukocytes 1 % 0-10 Blood neutrophils automated count (number/volume) 5.3 10*3 1.8-7.8 Blood lymphocytes automated count (number/volume) 2.0 10*3 1.0-4.0 Blood monocytes automated count (number/volume) 1.6 10*3 0.0-1.0 Automated eosinophil count 0.6 10*3/uL 0.0-0.3 Automated blood basophil count (count/volume) 0.1 10*3/uL 0.0-0.1 Encounters ACCT No. Visit Date/Time Discharge Status Pt. Type Provider Facility Loc./Unit Complaint [id number] 02/10/2017 11:30:00 2016 16:20:00 DIS Inpatient ERICKA MONTGOMERY MD [facility] IRF T10 COMPRESSION FRACTURE [id number] 02/04/2017 21:30:00 2016 11:10:00 DIS Outpatient ITZEL SCOTT DO [facility] SDC NEW T10 COMPRESSION FRACTURE INTRACTABLE PAIN UTI [id number] 01/23/2017 15:31:00 2016 18:42:00 DIS Emergency MARES, PETER Mary SQUIRES [facility] ER BACK PAIN [id number] 11/05/2016 13:19:00 2016 00:01:00 DIS Outpatient XIN PATE [facility] ONC [id number] 07/14/2016 14:37:00 2015 11:10:00 DIS Outpatient XIN PATE [facility] ONC [id number] 05/29/2016 19:32:00 2015 00:59:00 DIS Emergency DINAH MELISSA [facility] ER PALENESS/ABD SIDE PAIN [id number] 04/27/2016 12:55:00 2015 00:01:00 DIS Outpatient XIN PATE [facility] ONC [id number] 02/06/2016 09:00:00 2015 00:01:00 DIS Outpatient XIN PATE [facility] ONC [id number] 12/15/2015 09:04:00 2015 12:20:00 DIS Emergency ZAYRA ELIZONDO MD [facility] ER L SIDE NUMBNESS [id number] 11/12/2015 13:50:00 2015 00:01:00 DIS Outpatient XIN PATE [facility] ONC [id number] 10/01/2015 13:14:00 2014 23:59:59 CLS Outpatient MORENITA FARRIS PRICE CLERK [facility] ONC [id number] 09/10/2015 13:18:00 2014 23:59:59 CLS Outpatient MORENITA FARRIS PRICE CLERK [facility] ONC [id number] 08/20/2015 13:54:00 2014 23:59:59 CLS Outpatient MORENITA FARRIS PRICE CLERK [facility] ONC [id number] 08/06/2015 13:20:00 2014 00:01:00 DIS Outpatient XIN PATE [facility] ONC [id number] 07/29/2015 09:10:00 2014 23:59:59 CLS Outpatient FARRIS HILAH S PRICE CLERK [facility] RAD PANCREATIC CANCER [id number] 07/16/2015 13:13:00 2014 23:59:59 CLS Outpatient FARRIS HILAH S PRICE CLERK [facility] ONC [id number] 06/25/2015 10:33:00 2014 23:59:59 CLS Outpatient FARRIS HILAH S PRICE CLERK [facility] ONC [id number] 06/11/2015 13:45:00 2014 00:01:00 DIS Outpatient XIN PATE [facility] ONC [id number] 05/28/2015 14:00:00 2014 23:59:59 CLS Outpatient MESSI LAZO, ROBERT [facility] ONC [id number] 05/01/2015 09:20:00 2014 23:59:59 CLS Outpatient FARRIS HILAH S PRICE CLERK [facility] RAD PANCREATIC CANCER [id number] 04/16/2015 13:44:00 2014 23:59:59 CLS Outpatient FARRIS HILAH S PRICE CLERK [facility] ONC [id number] 02/19/2015 13:57:00 2014 23:59:59 CLS Outpatient FARRIS HILAH S PRICE CLERK [facility] ONC [id number] 01/01/2015 13:54:00 2014 23:59:59 CLS Outpatient XIN PATE [facility] ONC [id number] 12/28/2014 05:53:00 2014 09:01:00 DIS Emergency MIKHAIL LAZO, ZAYRA Crowley [facility] ER HEART PALPITATIONS [id number] 12/25/2014 14:03:00 2014 23:59:59 CLS Outpatient FARRIS HILAH S PRICE CLERK [facility] ONC [id number] 12/21/2014 06:04:00 2014 10:31:00 DIS Outpatient INGRID COOPER MD [facility] SDC PANCREATIC CANCER [id number] 12/19/2014 11:07:00 2014 23:59:59 CLS Outpatient INGRID COOPER MD [facility] PREOP PANCREATIC CANCER [id number] 12/12/2014 08:38:00 2014 16:20:00 DIS Outpatient JENNIFER WOLFE MD [facility] RAD PANCREATIC MASS [id number] 12/04/2014 12:21:00 2014 23:59:59 CLS Outpatient JENNIFER WOLFE MD [facility] RAD ABDOMINAL MASS [id number] 11/30/2014 14:45:00 2014 23:59:59 CLS Outpatient JENNIFER WOLFE MD [facility] RAD PANCREATIC MASS [id number] 11/30/2014 08:02:00 2014 23:59:59 CLS Outpatient JENNIFER WOLFE MD [facility] RAD PANCREATIC MASS [id number] 11/27/2014 08:49:00 2014 23:59:59 CLS Outpatient JENNIFER WOLFE MD [facility] CARD CHEST ABDOMINAL PAIN [id number] 10/04/2014 09:57:00 2013 17:50:00 DIS Outpatient INGRID COOPER MD [facility] CATH ASOD,LEG PAIN [id number] 06/05/2014 10:17:00 2013 23:59:59 CLS Outpatient JENNIFER WOLFE MD [facility] RAD SCREENING [id number] 02/23/2017 09:08:00 ACT Outpatient XIN PATE N [facility] ONC [id number] 12/17/2016 10:15:00 ACT Outpatient MORENITA FARRIS [facility] RAD PANCREATIC CANCER, LUNG NODULE [id number] 09/24/2016 10:07:00 ACT Outpatient MORENITA FARRIS [facility] RAD PANCREATIC CANCER [id number] 07/14/2016 07:39:00 PEN Preadmit MORENITA FARRIS [facility] ONC [id number] 04/22/2016 10:25:00 ACT Outpatient MORENITA FARRIS S PRICE CLERK [facility] RAD PANCREATIC CANCER [id number] 03/17/2016 10:59:00 ACT Outpatient KALEIGH GERALATA S PRICE CLERK [facility] ONC [id number] 02/06/2016 08:57:00 ACT Outpatient FARRISMORENITA Mckeon S PRICE CLERK [facility] ONC [id number] 01/31/2016 09:37:00 ACT Outpatient MORENITA FARRIS S PRICE CLERK [facility] RAD PANCREATIC CANCER [id number] 01/28/2016 10:39:00 ACT Outpatient MORENITA FARRIS S PRICE CLERK [facility] ONC [id number] 01/21/2016 12:15:00 ACT Outpatient BAIANCELMO CONROY L PRICE CLERK [facility] CARD PALPITATIONS,CAD,HTN,PAD [id number] 01/16/2016 07:45:00 ACT Outpatient BAIMARYCARMEN ANCELMO L PRICE CLERK [facility] CARD PALPITATIONS,CAD,PAD,HTN [id number] 12/16/2015 15:44:00 ACT Outpatient YANETH LAZO, JENNIFER Hernandez [facility] RAD HEMATURIA [id number] 12/13/2015 12:18:00 ACT Emergency MIKHAIL LAZO, ZAYRA Crowley [facility] ER SOA [id number] 12/05/2015 16:39:00 ACT Outpatient MORENITA FARRIS PRICE CLERK [facility] ONC [id number] 11/27/2015 08:34:00 ACT Outpatient MORENITA FARRIS S PRICE CLERK [facility] RAD PANCREATIC CANCER [id number] 11/12/2015 13:52:00 ACT Outpatient MORENITA FARRIS S PRICE CLERK [facility] ONC [id number] 02/05/2015 09:19:00 Document Registration [id number] 02/01/2015 10:17:00 Document Registration [id number] 11/27/2014 08:49:00 Document Registration [id number] 11/27/2014 08:49:00 Document Registration [id number] 11/27/2014 08:49:00 Document Registration [id number] 11/27/2014 08:48:00 Document Registration [id number] 08/26/2012 10:27:00 Document Registration [id number] 11/19/2011 11:20:00 Document Registration [id number] 10/28/2011 19:50:00 Document Registration [id number] 03/04/2011 10:10:00 Document Registration [id number] 03/02/2011 14:10:00 Document Registration [id number] 02/17/2011 19:16:00 Document Registration [id number] 11/27/2010 13:05:00 Document Registration [id number] 01/15/2010 14:23:00 Document Registration [id number] 08/28/2008 16:45:00 Document Registration
[2017-03-18] MEDS ORDERED: HYDR2TAB6 PO (15:01)
== END 2017-02-17 16:20 | disposition home health service (06) | DRG 560 ==
LOC: DELPENDDIS → ENPENDDIS 02-17 14:00
PROVIDERS: ADMIT Physical Medicine & Rehabilitation; ATTEND Physical Medicine & Rehabilitation
DX: S22.070D Wedge compression fracture of T9-T10 vertebra, subsequent encounter for fracture with routine healing (principal); C25.9 Malignant neoplasm of pancreas, unspecified; I10 Essential (primary) hypertension; I73.9 Peripheral vascular disease, unspecified; K21.9 Gastro-esophageal reflux disease without esophagitis; Z86.718 Personal history of other venous thrombosis and embolism; Z86.711 Personal history of pulmonary embolism; X50.0XXD Overexertion from strenuous movement or load, subsequent encounter

== ENCOUNTER 2017-03-11 13:01 | Outpatient (RCR) | payer MEDICARE ==
--- OUTSIDE RECORDS SUMMARY | 2016-12-17 10:01 | XMS REPORT | Continuity of Care Document ---
Author Author [facility] Organization [facility] Address Unknown Phone Unavailable Care Team Providers Care Trading Floor Operator Name Role Phone JENNIFER WOLFE MD PCP Insurance Providers Payer Name Policy Number Subscriber Name Relationship Wps Medicare [id number] Abilio Coe 18 Self / Same As Patient Blue Cross Mcr Supp [id number] Abilio Coe 18 Self / Same As Patient Advance Directives Directive Response Recorded Date/Time Advance Directives No 12/13/15 12:29pm Health Care Power of Wind Operations Manager No 12/13/15 12:29pm Organ Donor Yes 12/13/15 [...] Discharge/Depart Date Attending Provider Discharged Recurring [facility] 04/27/16 12:55pm 11:59pm XIN PATE Registered Clinic [facility] 04/22/16 10:25am MORENITA FARRIS
[2016-12-17 10:12] LABS: BASOPHILS # (AUTO) 0.1 10^3/uL (0.0-0.1); BASOPHILS % (AUTO) 1 % (0-10); EOSINOPHILS # (AUTO) 0.7 10^3/uL (0.0-0.3); EOSINOPHILS % (AUTO) 7 % (0-10); LYMPHOCYTES # (AUTO) 2.1 X 10^3 (1.0-4.0); LYMPHOCYTES % (AUTO) 20 % (12-44); MEAN CORPUSCULAR HEMOGLOBIN 31 PG (25-34); MEAN CORPUSCULAR HGB CONC 34 G/DL (32-36); MEAN CORPUSCULAR VOLUME 91 FL (80-99); MEAN PLATELET VOLUME 9.2 FL (7.4-10.4); MONOCYTES # (AUTO) 1.3 X 10^3 (0.0-1.0); MONOCYTES % (AUTO) 12 % (0-12); NEUTROPHILS # (AUTO) 6.4 X 10^3 (1.8-7.8); NEUTROPHILS % (AUTO) 61 % (42-75); PLATELET COUNT 239 10^3/uL (130-400); RED BLOOD COUNT 3.63 10^6/uL (4.35-5.85); RED CELL DISTRIBUTION WIDTH 13.4 % (10.0-14.5); WHITE BLOOD COUNT 10.5 10^3/uL (4.3-11.0)
[2016-12-17 10:36] LABS: ALBUMIN 3.8 G/DL (3.2-4.5); BILIRUBIN,TOTAL 1.2 MG/DL (0.1-1.0); CREATININE SERUM 0.94 MG/DL (0.60-1.30); POTASSIUM 4.5 MMOL/L (3.6-5.0); TOTAL PROTEIN 7.1 G/DL (6.4-8.2)
[2016-12-30 13:40] LABS: BASOPHILS % (AUTO) 0 % (0-10); EOSINOPHILS # (AUTO) 0.5 10^3/uL (0.0-0.3); EOSINOPHILS % (AUTO) 6 % (0-10); LYMPHOCYTES % (AUTO) 25 % (12-44); MEAN CORPUSCULAR HEMOGLOBIN 31 PG (25-34); MEAN CORPUSCULAR HGB CONC 33 G/DL (32-36); MEAN CORPUSCULAR VOLUME 93 FL (80-99); MEAN PLATELET VOLUME 9.1 FL (7.4-10.4); MONOCYTES # (AUTO) 0.9 X 10^3 (0.0-1.0); MONOCYTES % (AUTO) 11 % (0-12); NEUTROPHILS # (AUTO) 4.6 X 10^3 (1.8-7.8); NEUTROPHILS % (AUTO) 58 % (42-75); PLATELET COUNT 233 10^3/uL (130-400); RED BLOOD COUNT 3.45 10^6/uL (4.35-5.85); RED CELL DISTRIBUTION WIDTH 13.4 % (10.0-14.5); WHITE BLOOD COUNT 7.9 10^3/uL (4.3-11.0)
[2016-12-30 14:01] LABS: ALBUMIN 3.6 G/DL (3.2-4.5); BILIRUBIN,TOTAL 0.8 MG/DL (0.1-1.0); CALCIUM 8.7 MG/DL (8.5-10.1); CREATININE SERUM 0.92 MG/DL (0.60-1.30); POTASSIUM 4.5 MMOL/L (3.6-5.0); TOTAL PROTEIN 6.6 G/DL (6.4-8.2)
[2017-01-07 13:36] LABS: BASOPHILS % (AUTO) 0 % (0-10); EOSINOPHILS # (AUTO) 0.3 10^3/uL (0.0-0.3); EOSINOPHILS % (AUTO) 5 % (0-10); LYMPHOCYTES # (AUTO) 1.9 X 10^3 (1.0-4.0); LYMPHOCYTES % (AUTO) 28 % (12-44); MEAN CORPUSCULAR HEMOGLOBIN 31 PG (25-34); MEAN CORPUSCULAR HGB CONC 34 G/DL (32-36); MEAN CORPUSCULAR VOLUME 93 FL (80-99); MEAN PLATELET VOLUME 8.6 FL (7.4-10.4); MONOCYTES # (AUTO) 0.7 X 10^3 (0.0-1.0); MONOCYTES % (AUTO) 11 % (0-12); NEUTROPHILS # (AUTO) 3.8 X 10^3 (1.8-7.8); NEUTROPHILS % (AUTO) 57 % (42-75); PLATELET COUNT 182 10^3/uL (130-400); RED BLOOD COUNT 3.18 10^6/uL (4.35-5.85); RED CELL DISTRIBUTION WIDTH 12.5 % (10.0-14.5); WHITE BLOOD COUNT 6.7 10^3/uL (4.3-11.0)
[2017-01-07 14:11] LABS: CALCIUM 8.4 MG/DL (8.5-10.1); CREATININE SERUM 0.94 MG/DL (0.60-1.30); POTASSIUM 4.4 MMOL/L (3.6-5.0)
[2017-01-14 13:50] LABS: BASOPHILS % (AUTO) 0 % (0-10); EOSINOPHILS # (AUTO) 0.1 10^3/uL (0.0-0.3); EOSINOPHILS % (AUTO) 3 % (0-10); LYMPHOCYTES # (AUTO) 1.7 X 10^3 (1.0-4.0); LYMPHOCYTES % (AUTO) 36 % (12-44); MEAN CORPUSCULAR HEMOGLOBIN 31 PG (25-34); MEAN CORPUSCULAR HGB CONC 33 G/DL (32-36); MEAN CORPUSCULAR VOLUME 93 FL (80-99); MEAN PLATELET VOLUME 8.5 FL (7.4-10.4); MONOCYTES # (AUTO) 0.6 X 10^3 (0.0-1.0); MONOCYTES % (AUTO) 13 % (0-12); NEUTROPHILS # (AUTO) 2.1 X 10^3 (1.8-7.8); NEUTROPHILS % (AUTO) 47 % (42-75); PLATELET COUNT 153 10^3/uL (130-400); RED BLOOD COUNT 3.08 10^6/uL (4.35-5.85); RED CELL DISTRIBUTION WIDTH 12.9 % (10.0-14.5); WHITE BLOOD COUNT 4.5 10^3/uL (4.3-11.0)
[2017-01-14 14:20] LABS: CALCIUM 8.5 MG/DL (8.5-10.1); CREATININE SERUM 1.01 MG/DL (0.60-1.30)
[2017-01-21 10:41] LABS: BASOPHILS % (AUTO) 1 % (0-10); EOSINOPHILS # (AUTO) 0.4 10^3/uL (0.0-0.3); EOSINOPHILS % (AUTO) 5 % (0-10); LYMPHOCYTES # (AUTO) 1.8 X 10^3 (1.0-4.0); LYMPHOCYTES % (AUTO) 23 % (12-44); MEAN CORPUSCULAR HEMOGLOBIN 31 PG (25-34); MEAN CORPUSCULAR HGB CONC 34 G/DL (32-36); MEAN CORPUSCULAR VOLUME 94 FL (80-99); MEAN PLATELET VOLUME 8.5 FL (7.4-10.4); MONOCYTES # (AUTO) 1.2 X 10^3 (0.0-1.0); MONOCYTES % (AUTO) 16 % (0-12); NEUTROPHILS # (AUTO) 4.4 X 10^3 (1.8-7.8); NEUTROPHILS % (AUTO) 56 % (42-75); PLATELET COUNT 280 10^3/uL (130-400); RED BLOOD COUNT 3.12 10^6/uL (4.35-5.85); RED CELL DISTRIBUTION WIDTH 15.1 % (10.0-14.5); WHITE BLOOD COUNT 7.9 10^3/uL (4.3-11.0)
[2017-01-21 11:12] LABS: ALBUMIN 3.4 G/DL (3.2-4.5); BILIRUBIN,TOTAL 0.7 MG/DL (0.1-1.0); CALCIUM 8.5 MG/DL (8.5-10.1); CREATININE SERUM 0.94 MG/DL (0.60-1.30); POTASSIUM 4.7 MMOL/L (3.6-5.0); TOTAL PROTEIN 6.5 G/DL (6.4-8.2)
[2017-02-23 09:23] LABS: BASOPHILS # (AUTO) 0.1 10^3/uL (0.0-0.1); BASOPHILS % (AUTO) 1 % (0-10); EOSINOPHILS # (AUTO) 0.7 10^3/uL (0.0-0.3); EOSINOPHILS % (AUTO) 8 % (0-10); LYMPHOCYTES % (AUTO) 23 % (12-44); MEAN CORPUSCULAR HEMOGLOBIN 31 PG (25-34); MEAN CORPUSCULAR HGB CONC 33 G/DL (32-36); MEAN CORPUSCULAR VOLUME 95 FL (80-99); MEAN PLATELET VOLUME 9.7 FL (7.4-10.4); MONOCYTES # (AUTO) 1.2 X 10^3 (0.0-1.0); MONOCYTES % (AUTO) 13 % (0-12); NEUTROPHILS # (AUTO) 4.8 X 10^3 (1.8-7.8); NEUTROPHILS % (AUTO) 55 % (42-75); PLATELET COUNT 314 10^3/uL (130-400); RED BLOOD COUNT 3.36 10^6/uL (4.35-5.85); RED CELL DISTRIBUTION WIDTH 15.1 % (10.0-14.5); WHITE BLOOD COUNT 8.8 10^3/uL (4.3-11.0)
[2017-02-23 09:49] LABS: ALANINE AMINOTRANSFERASE < 6 U/L (0-55); ALBUMIN 3.7 G/DL (3.2-4.5); ANION GAP 8 MMOL/L (5-14); ASPARTATE AMINO TRANSFERASE 16 U/L (5-34); BILIRUBIN,TOTAL 0.9 MG/DL (0.1-1.0); BLOOD UREA NITROGEN 17 MG/DL (7-18); BUN/CREATININE RATIO 16; CALCIUM 9.3 MG/DL (8.5-10.1); CARBON DIOXIDE 25 MMOL/L (21-32); CHLORIDE 106 MMOL/L (98-107); CREATININE SERUM 1.06 MG/DL (0.60-1.30); GFR ESTIMATED 50; GLUCOSE 109 MG/DL (70-105); POTASSIUM 5.1 MMOL/L (3.6-5.0); SODIUM 139 MMOL/L (135-145); TOTAL PROTEIN 7.1 G/DL (6.4-8.2)
[2017-03-04 13:18] LABS: BASOPHILS # (AUTO) 0.1 10^3/uL (0.0-0.1); BASOPHILS % (AUTO) 1 % (0-10); EOSINOPHILS # (AUTO) 0.6 10^3/uL (0.0-0.3); EOSINOPHILS % (AUTO) 6 % (0-10); LYMPHOCYTES # (AUTO) 2.4 X 10^3 (1.0-4.0); LYMPHOCYTES % (AUTO) 28 % (12-44); MEAN CORPUSCULAR HEMOGLOBIN 30 PG (25-34); MEAN CORPUSCULAR HGB CONC 32 G/DL (32-36); MEAN CORPUSCULAR VOLUME 94 FL (80-99); MEAN PLATELET VOLUME 9.3 FL (7.4-10.4); MONOCYTES % (AUTO) 12 % (0-12); NEUTROPHILS # (AUTO) 4.6 X 10^3 (1.8-7.8); NEUTROPHILS % (AUTO) 53 % (42-75); PLATELET COUNT 257 10^3/uL (130-400); RED BLOOD COUNT 3.27 10^6/uL (4.35-5.85); RED CELL DISTRIBUTION WIDTH 14.4 % (10.0-14.5); WHITE BLOOD COUNT 8.7 10^3/uL (4.3-11.0)
[2017-03-04 13:38] LABS: CALCIUM 8.5 MG/DL (8.5-10.1); CREATININE SERUM 0.91 MG/DL (0.60-1.30); POTASSIUM 4.3 MMOL/L (3.6-5.0)
[~2017-03-11] VITALS: Ht 171.4 cm; Wt 78.9 kg
[~2017-03-11 13:01] MED LIST changes: +CTR IV SCH; +Calcitonin; +FENT1PAT8 TD; +GEMCITABINE HCL (GENERIC) 1,000 MG, GEMCITABINE HCL (GENERIC) 100 MG in NS (IVPB) CANCE... IV SCH; +NS IV 500 ML (CANCER CENTER) IV SCH; +Oxycodone Hcl PO; +PACLITAXEL PROTEIN IV SCH; +PALONOSETRON 0.25 MG, DEXAMETHASONE 10 MG/NS 50 ML IVPB IV PRN
[2017-03-11 13:19] LABS: BASOPHILS % (AUTO) 1 % (0-10); EOSINOPHILS # (AUTO) 0.2 10^3/uL (0.0-0.3); EOSINOPHILS % (AUTO) 5 % (0-10); LYMPHOCYTES # (AUTO) 1.5 X 10^3 (1.0-4.0); LYMPHOCYTES % (AUTO) 36 % (12-44); MEAN CORPUSCULAR HEMOGLOBIN 31 PG (25-34); MEAN CORPUSCULAR HGB CONC 33 G/DL (32-36); MEAN CORPUSCULAR VOLUME 95 FL (80-99); MEAN PLATELET VOLUME 9.6 FL (7.4-10.4); MONOCYTES # (AUTO) 0.6 X 10^3 (0.0-1.0); MONOCYTES % (AUTO) 13 % (0-12); NEUTROPHILS # (AUTO) 1.9 X 10^3 (1.8-7.8); NEUTROPHILS % (AUTO) 45 % (42-75); PLATELET COUNT 175 10^3/uL (130-400); RED CELL DISTRIBUTION WIDTH 13.3 % (10.0-14.5); WHITE BLOOD COUNT 4.2 10^3/uL (4.3-11.0)
[2017-03-11] MEDS ORDERED: GEMCITABINE HCL IV SCH (13:30)
[2017-03-11] MEDS ORDERED: CTR IV SCH (13:30)
[2017-03-11] MEDS ORDERED: NS IV SCH (13:30)
[2017-03-11] MEDS ORDERED: PACLITAXEL PROTEIN IV SCH (13:30)
[2017-03-11 13:35] LABS: CALCIUM 8.6 MG/DL (8.5-10.1); CREATININE SERUM 0.92 MG/DL (0.60-1.30); POTASSIUM 4.4 MMOL/L (3.6-5.0)
[2017-03-18] MEDS ORDERED: HYDR2TAB6 PO (15:01)
== END 2017-03-17 | disposition home or self-care (01) ==
LOC: ONC 13:01
PROVIDERS: ATTEND Internal Medicine Hematology & Oncology
DX: Z51.11 Encounter for antineoplastic chemotherapy (principal); C25.0 Malignant neoplasm of head of pancreas; C77.9 Secondary and unspecified malignant neoplasm of lymph node, unspecified; D64.9 Anemia, unspecified; Z79.899 Other long term (current) drug therapy
CPT/HCPCS: 36415; 36591; 80048; 80053; 83735; 85025; 86301; 96375; 96413; 96417; 99213

== ENCOUNTER → 2017-03-18 | Emergency (ER) | payer MEDICARE ==
[~2017-03-18] VITALS: Ht 175.3 cm; Wt 77.1 kg
[~2017-03-18] MED LIST changes: +CEFU250T80 PO; -CTR IV SCH; -GEMCITABINE HCL (GENERIC) 1,000 MG, GEMCITABINE HCL (GENERIC) 100 MG in NS (IVPB) CANCE... IV SCH; +HYDR2TAB6 PO; +KETO10TA PO; -NS IV 500 ML (CANCER CENTER) IV SCH; -PACLITAXEL PROTEIN IV SCH; -PALONOSETRON 0.25 MG, DEXAMETHASONE 10 MG/NS 50 ML IVPB IV PRN; +fentaNYL INJECTION 100 MCG/2 ML AMP IVP ONE
--- NOTE | 2017-03-18 09:28 | ED General ---
General Chief Complaint: Back Problems Stated Complaint: LOW BACK PAIN Nursing Triage Note: AMB TO ED PER W/C [facility] OF CHRONIC BACK PAINJ REPORTS PAIN MEDS NOT HELPING Nursing Sepsis Screen: No Definite Risk Source of Information: Patient, Family Exam Limitations: No Limitations History of Present Illness Time Seen by Provider: 09:26 Initial Comments The patient is a 81-year-old white female with previous problems with back pain. She was recently diagnosed with what appeared to be an acute T10 compression fracture. In addition she is being treated for pancreatic carcinoma. She has oxycodone believe finds it is not relieving her pain. She denies sciatic symptoms. But states that the present pain is in the lower lumbar area. Allergies and Home Medications Allergies Coded Allergies: codeine (Verified Adverse Reaction, Mild, NAUSEA, 07/30/08) meperidine (Verified Adverse Reaction, Mild, N/V, 01/17/10) morphine (Verified Adverse Reaction, Mild, NAUSEA, 07/30/08) Home Medications Diazepam 5 Mg Tablet, 5 MG PO Q8H PRN for ANXIETY, (Reported) Doxazosin Mesylate 2 Mg Tablet, 2 MG PO BID, (Reported) Fentanyl 1 Each Patch.td72, 25 MCG TD Q72H for 30 Days, #10 Prescribed by: ERICKA MONTGOMERY on 02/17/17921 Furosemide 20 Mg Tablet, 20 MG PO Q48H, (Reported) Lisinopril 40 Mg Tablet, 40 MG PO DAILY, (Reported) Metoprolol Succinate 50 Mg Tab.er.24h, 50 MG PO HS, (Reported) TAKES ALONG WITH 100MG TABLET AT BEDTIME FOR A TOTAL BEDTIME DOSE OF 150MG [Calcitonin] 3.7 ML SOLN, 0 ML NA DAILY for 30 Days, #1 Prescribed by: ERICKA MONTGMOERY on 02/17/17921 [Oxycodone Hcl] 5 MG TAB, 10 MG PO Q4H PRN for PAIN-SEVERE for 14 Days, #30 Prescribed by: ERICKA MONTGOMERY on 02/17/17921 Past Xbhnynr-Treyak-Tzrlas Hx Patient Social History Alcohol Use: Denies Use Recreational Drug Use: No Smoking Status: Never a Smoker Type Used: Cigarettes Former Smoker/When Quit: Dec 16, 2001 Recent Foreign Travel: No Contact w/Someone Who Travel: No Recent Infectious Disease Expo: No Recent Hopitalizations: No Immunizations Up To Date Tetanus Booster (TDap): Unknown Date of Influenza Vaccine: Oct 15, 2016 Seasonal Allergies Seasonal Allergies: No Surgeries HX Surgeries: Yes Surgeries: Abdominal, Appendectomy, Eye Surgery, Gallbladder, Hysterectomy, Vascular Surgery Respiratory Hx Respiratory Disorders: No Cardiovascular Hx Cardiac Disorders: Yes Cardiac Disorders: Deep Vein Thrombosis, Hypertension, Peripheral Vascular Neurological Hx Neurological Disorders: No Reproductive System Hx Reproductive Disorders: No Sexually Transmitted Disease: No CORRECTIONAL MANAGER History: Hysterectomy, Menopausal Genitourinary Hx Genitourinary Disorders: No Gastrointestinal Hx Gastrointestinal Disorders: Yes (PANCREATIC CANCER) Gastrointestinal Disorders: Gastroesophageal Reflux Musculoskeletal Hx Musculoskeletal Disorders: Yes Musculoskeletal Disorders: Degenerate Disk Disease, Arthritis Endocrine Hx Endocrine Disorders: No HEENT HX ENT Disorders: Yes (DENTURES) HEENT Disorders: Cataract Cancer Hx Cancer: Yes Cancer: Pancreatic Psychosocial Hx Psychiatric Problems: No Integumentary HX Skin/Integumentary Disorder: No (POST OP WOUND INFECTIONS, DEHISCENCE) Blood Transfusions Hx Blood Disorders: No Adverse Reaction to a Blood Tr: No Family Medical History Family Medial History: Acute lymphoblastic leukemia (ALL) G8 BROTHER Alzheimer's disease 19 FATHER Completed stroke 19 MOTHER Diabetes mellitus 19 MOTHER Physical Exam Vital Signs Vital Sign - Last 12Hours 03/18/17 08:09 Temp 98.6 Pulse 81 Resp 18 B/P (MAP) 149/69 Pulse Ox 95 O2 Delivery Room Air Capillary Refill : Less Than 3 Seconds Progress/Results/Core Measures Results/Orders My Orders Orders - ZAYRA ELIZONDO MD Ct Lumbar Spine Wo (03/18/17 09:28) Fentanyl Injection (Sublimaze Injection (03/18/17 09:30) Medications Given in ED Current Medications Medications Dose Ordered Sig/Fracisco Route Start Time Stop Time Status Last Admin Dose Admin Fentanyl Citrate 50 mcg ONCE ONCE IVP 03/18/17 09:30 03/18/17 09:31 DC 03/18/17 09:46 50 MCG Vital Signs/I&O Vital Sign - Last 12Hours 03/18/17 08:09 Temp 98.6 Pulse 81 Resp 18 B/P (MAP) 149/69 Pulse Ox 95 O2 Delivery Room Air Blood Pressure Mean: 95 Departure Communication Progress Notes discussed with Dr. Moya. Given treatment regimen pain with previous fracture he would like the patient to be referred for vertebroplasty. [address] Chandra and voice message left. [address] Chandra. 1210 discussed with mid-level of Jhonny Guzmán,to attempt to arrange vertebroplasty. He called back and stated that if the patient could get transportation to [place] he could do the H&P and it could be done there tomorrow. I then queried the patient and she stated that she had no options with regard to private transportation. We then counter offered admission to the hospitalist service and vertebroplasty here tomorrow. This was relayed to a clinic employee at [place] and now at 1450 have still not had any response. [address] Rodriguez personally. He will be unavailable until Wednesday. Therefore we will dismiss the patient and use hydromorphone as a higher level of pain relief. If she is still miserable, Wednesday he promises to work her in and perform kyphoplasty at that time Impression Impression: Primary Impression: Compression fracture of L2 Disposition: HOME, SELF-CARE Condition: Stable/Unchanged Departure-Patient Inst. Decision time for Depature: 14:56 Referrals: DENY MONTAGUE MD (PCP/Family) Primary Care Physician Patient Instructions: MANAGING YOUR CHRONIC PAIN Add. Discharge Instructions: All discharge instructions reviewed with patient and/or family. Voiced understanding. Stop your present hydrocodone. Take hydromorphone as prescribed. If pain relief is not satisfactory Dr. Chandra has promised to see you Wednesday. Scripts Hydromorphone HCl (Hydromorphone HCl) 2 Mg Tablet 2 MG PO 4 times a day Y for pain, #14 TAB Start with one half tab and may increase to 1 tab if pain relief not Prov: ZAYRA ELIZONDO MD 03/18/17 ZAYRA ELIZONDO MD March 18, 2017 09:27
--- NOTE | 2017-03-18 11:23 | Diagnostic Imaging Report ---
Clinical indication: Patient with severe low back pain since last night. Patient weak legs. Exam: Axial CT scan of the lumbar spine performed without IV contrast. Coronal and sagittal reformatted images are created. Comparison: CT scan of the thoracic and lumbar spine performed without IV contrast dated 02/04/2017. FINDINGS: There is interval development of a roughly 70% compression deformity of the L2 vertebral body inferior endplate which has developed in the interim. There is also some cortical irregularity involving the inferior endplate region. There is no retropulsed fragment. Given patient's symptoms, this is concerning for acute fracture. There is no other concern for acute fracture or dislocation. There is stable chronic deformity of the upper endplate of the T12 vertebral body seen. There is stable lumbar spine degenerative disease with hypertrophic spurs anteriorly at the L3-L4 and L4-5 levels. There is stable diffuse disc bulges involving the mid and lower lumbar spine. There is no significant paraspinal soft tissue abnormality. Dense atherosclerotic changes of the abdominal aorta and bilateral common iliac arteries are seen. IVC filter is noted with its tip at the upper L1 vertebral body level. IMPRESSION: 1: There is interval development of an acute compression fracture deformity of the inferior endplate of the L2 vertebral body. 2: Stable chronic compression deformity of the upper endplate of the T12 vertebral body. 3: Stable lumbar spine degenerative disease. Result of this report was discussed with Dr. Rah Mayorga via the telephone on 03/18/2017 at 1110 hrs. Dictated by: Dictated on workstation # [id number]
[2017-03-18 15:20] VITALS: BP 168/73
== END | disposition home or self-care (01) ==
LOC: EDUNIT# 08:02 → ER 08:04
DX: S22.070D Wedge compression fracture of T9-T10 vertebra, subsequent encounter for fracture with routine healing (principal); C25.0 Malignant neoplasm of head of pancreas; X50.0XXD Overexertion from strenuous movement or load, subsequent encounter; Y99.8 Other external cause status
CPT/HCPCS: 72131; 96374; 96376; 99281

== ENCOUNTER 2017-03-20 20:41 | Emergency (ER) | payer MEDICARE ==
[~2017-03-20] VITALS: Ht 175.3 cm; Wt 77.1 kg
[~2017-03-20 20:41] MED LIST changes: -CEFU250T80 PO; -KETO10TA PO; -fentaNYL INJECTION 100 MCG/2 ML AMP IVP ONE
[2017-03-20] MEDS ORDERED: KETOROLAC 30 MG/ML VIAL IVP ONE (21:00)
[2017-03-20 21:04] LABS: BILIRUBIN,URINE NEGATIVE (NEGATIVE); KETONES,URINE NEGATIVE (NEGATIVE); LEUKOCYTE ESTERASE ,URINE 3+ (NEGATIVE); NITRITE,URINE NEGATIVE (NEGATIVE); PH,URINE 5 (5-9); PROTEIN,URINE 2+ (NEGATIVE); UROBILINOGEN,URINE 1 MG/DL (NORMAL)
--- NOTE | 2017-03-20 21:10 | ED Back Pain ---
General Stated Complaint: BACK PAIN Source of Information: Patient Exam Limitations: No Limitations History of Present Illness Time Seen by Provider: 21:07 Initial Comments To ER with low back pain. The pain does not radiate. Patient is a pancreatic cancer patient currently on chemotherapy by Dr. Alvarado. She was seen here sometime around the early part of January for low back pain after carrying groceries indoors. Scan was performed at that time without showing any evidence of fracture. She returned about 2 weeks later to be admitted for intractable low back pain and found to have a lower thoracic compression fracture. Ultimately, on 02/08 a T10 kyphoplasty was performed by Dr. Chandra. She then returned here 2 days ago for worsening pain despite her fentanyl patch and oxycodone. Those 2 medications were stopped and she was given Dilaudid 2 mg every 6 hours for findings of a new L2 compression fracture However, pain is worse tonight and she believes her pain to a been better controlled on the fentanyl and oxycodone. She rates the pain 10 out of 10 and is unable to get herself out of bed in the mornings because of the pain. Location: Lumbar Spine Timing/Duration: Intermittent Severity: Moderate Pain/Injury Location: Back Associated Symptoms: denies symptoms Allergies and Home Medications Allergies Coded Allergies: codeine (Verified Adverse Reaction, Mild, NAUSEA, 07/30/08) meperidine (Verified Adverse Reaction, Mild, N/V, 01/17/10) morphine (Verified Adverse Reaction, Mild, NAUSEA, 07/30/08) Home Medications Diazepam 5 Mg Tablet, 5 MG PO Q8H PRN for ANXIETY, (Reported) Doxazosin Mesylate 2 Mg Tablet, 2 MG PO BID, (Reported) Fentanyl 1 Each Patch.td72, 25 MCG TD Q72H for 30 Days, #10 Prescribed by: ERICKA MONTGOMERY on 02/17/17 0922 Furosemide 20 Mg Tablet, 20 MG PO Q48H, (Reported) Hydromorphone HCl 2 Mg Tablet, 2 MG PO 4 times a day PRN for pain, #14 Start with one half tab and may increase to 1 tab if pain relief not Prescribed by: ZAYRA ELIZONDO on 03/18/17 1501 Ketorolac Tromethamine 10 Mg Tablet, 10 MG PO Q6H PRN for PAIN-SEVERE, #16 Prescribed by: RONEL MARES on 5/6/17 2156 Lisinopril 40 Mg Tablet, 40 MG PO DAILY, (Reported) Metoprolol Succinate 50 Mg Tab.er.24h, 50 MG PO HS, (Reported) TAKES ALONG WITH 100MG TABLET AT BEDTIME FOR A TOTAL BEDTIME DOSE OF 150MG [Calcitonin] 3.7 ML SOLN, 0 ML NA DAILY for 30 Days, #1 Prescribed by: ERICKA MONTGOMERY on 02/17/17921 [Oxycodone Hcl] 5 MG TAB, 10 MG PO Q4H PRN for PAIN-SEVERE for 14 Days, #30 Prescribed by: ERICKA MONTGOMERY on 02/17/17921 Constitutional: see HPI EENTM: see HPI Respiratory: no symptoms reported Cardiovascular: no symptoms reported Musculoskeletal: see HPI, back pain Skin: no symptoms reported Past Yudezcy-Vlnbes-Bktggk Hx Patient Social History Type Used: Cigarettes Former Smoker/When Quit: Dec 16, 2001 Recent Foreign Travel: No Contact w/Someone Who Travel: No Recent Hopitalizations: No Immunizations Up To Date Tetanus Booster (TDap): Unknown Date of Influenza Vaccine: Oct 15, 2016 Seasonal Allergies Seasonal Allergies: No Surgeries HX Surgeries: Yes Surgeries: Abdominal, Appendectomy, Eye Surgery, Gallbladder, Hysterectomy, Vascular Surgery Respiratory Hx Respiratory Disorders: No Cardiovascular Hx Cardiac Disorders: Yes Cardiac Disorders: Deep Vein Thrombosis, Hypertension, Peripheral Vascular Neurological Hx Neurological Disorders: No Reproductive System Hx Reproductive Disorders: No 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, 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 Genitourinary Hx Genitourinary Disorders: No Gastrointestinal Hx Gastrointestinal Disorders: Yes (PANCREATIC CANCER) Gastrointestinal Disorders: Gastroesophageal Reflux Musculoskeletal Hx Musculoskeletal Disorders: Yes Musculoskeletal Disorders: Degenerate Disk Disease, Arthritis Endocrine Hx Endocrine Disorders: No HEENT HX ENT Disorders: Yes (DENTURES) HEENT Disorders: Cataract Cancer Hx Cancer: Yes Cancer: Pancreatic Psychosocial Hx Psychiatric Problems: No Integumentary HX Skin/Integumentary Disorder: No (POST OP WOUND INFECTIONS, DEHISCENCE) Blood Transfusions Hx Blood Disorders: No Adverse Reaction to a Blood Tr: No Family Medical History Family Medial History: Acute lymphoblastic leukemia (ALL) G8 BROTHER Alzheimer's disease 19 FATHER Completed stroke 19 MOTHER Diabetes mellitus 19 MOTHER Physical Exam Vital Signs Capillary Refill : General Appearance: No Apparent Distress, WD/WN HEENT: PERRL/EOMI, TMs Normal Respiratory: No Accessory Muscle Use, No Respiratory Distress Gastrointestinal: Non Tender, Soft Back: Vertebral Tenderness Neurologic/Psychiatric: Alert, Oriented x3 Skin: Normal Color, Warm/Dry Progress/Results/Core Measures Results/Orders Lab Results Laboratory Tests Test 03/20/17 20:57 03/20/17 21:03 Range/Units Urine Color YELLOW Urine Clarity SLIGHTLY CLOUDY Urine pH 5 5-9 Urine Specific [place] 1.020 1.016-1.022 Urine Protein 2+ H NEGATIVE Urine Glucose (UA) NEGATIVE NEGATIVE Urine Ketones NEGATIVE NEGATIVE Urine Nitrite NEGATIVE NEGATIVE Urine Bilirubin NEGATIVE NEGATIVE Urine Urobilinogen 1 NORMAL MG/DL Urine Leukocyte Esterase 3+ H NEGATIVE Urine RBC (Auto) 1+ H NEGATIVE Urine RBC 0-2 /HPF Urine WBC 10-25 H /HPF Urine Squamous Epithelial Cells 2-5 /HPF Urine Renal Epithelial Cells 0-2 /HPF Urine Crystals NONE /LPF Urine Bacteria FEW H /HPF Urine Casts NONE /LPF Urine Mucus NEGATIVE /LPF Urine Culture Indicated YES White Blood Count 7.1 4.3-11.0 10^3/uL Red Blood Count 2.86 L 4.35-5.85 10^6/uL Hemoglobin 8.9 L 11.5-16.0 G/DL Hematocrit 27 L 35-52 % Mean Corpuscular Volume 94 80-99 FL Mean Corpuscular Hemoglobin 31 25-34 PG Mean Corpuscular Hemoglobin Concent 33 32-36 G/DL Red Cell Distribution Width 13.9 10.0-14.5 % Platelet Count 149 130-400 10^3/uL Mean Platelet Volume 9.5 7.4-10.4 FL Neutrophils (%) (Auto) 55 42-75 % Lymphocytes (%) (Auto) 23 12-44 % Monocytes (%) (Auto) 17 H 0-12 % Eosinophils (%) (Auto) 5 0-10 % Basophils (%) (Auto) 0 0-10 % Neutrophils # (Auto) 3.9 1.8-7.8 X 10^3 Lymphocytes # (Auto) 1.7 1.0-4.0 X 10^3 Monocytes # (Auto) 1.2 H 0.0-1.0 X 10^3 Eosinophils # (Auto) 0.3 0.0-0.3 10^3/uL Basophils # (Auto) 0.0 0.0-0.1 10^3/uL Sodium Level 136 135-145 MMOL/L Potassium Level 4.1 3.6-5.0 MMOL/L Chloride Level 103 98-107 MMOL/L Carbon Dioxide Level 24 21-32 MMOL/L Anion Gap 9 5-14 MMOL/L Blood Urea Nitrogen 13 7-18 MG/DL Creatinine 0.95 0.60-1.30 MG/DL Estimat Glomerular Filtration Rate 57 BUN/Creatinine Ratio 14 Glucose Level 114 H 70-105 MG/DL Calcium Level 8.9 8.5-10.1 MG/DL My Orders Orders - RONEL MARES APRN Saline Lock/Iv-Start (03/20/17 20:56) Ketorolac Injection (Toradol Injection) (03/20/17 21:00) Cbc With Automated Diff (03/20/17 20:56) Basic Metabolic Panel (03/20/17 20:56) Fentanyl Patch (Duragesic Patch) (03/20/17 21:15) Ceftriaxone Injection (Rocephin Injectio (03/20/17 21:15) Medications Given in ED Current Medications Medications Dose Ordered Sig/Fracisco Route Start Time Stop Time Status Last Admin Dose Admin Ceftriaxone Sodium 1000 mg/ Sodium Chloride 50 ml @ 100 mls/hr ONCE ONCE IV 03/20/17 21:15 03/20/17 21:44 DC 03/20/17 21:51 100 MLS/HR Ketorolac Tromethamine 30 mg ONCE ONCE IVP 03/20/17 21:00 03/20/17 21:01 DC 03/20/17 21:03 30 MG Departure Communication Progress Notes 3468-after 30 mg of IV Toradol only, the patient rated her pain initially at a 10, she states that her pain is now at a 1. I will give her a short course less than 5 days of by mouth Toradol. Patient is to come back here on Wednesday for kyphoplasty with Dr. Chandra she states. Impression Impression: Primary Impression: Pancreatic cancer Additional Impressions: T10 compression fracture Urinary tract infection Disposition: HOME, SELF-CARE Condition: Stable Departure-Patient Inst. Decision time for Depature: 21:54 Referrals: ITZEL CHANDRA CHAD C MD (PCP/Family) Primary Care Physician Patient Instructions: Urinary Tract Infection, Adult (DC), Vertebral Compression Fracture (DC) Add. Discharge Instructions: 1. Take the pain medication as directed. These can worsen kidney function so use them sparingly. 2. Return to ER for any worsening symptoms 3. Antibiotics as directed for the bladder infection 4. Follow-up with Dr. Chandra as scheduled Scripts Cefuroxime Axetil (Cefuroxime) 250 Mg Tablet 250 MG PO BID, #10 TAB Prov: RONEL MARES APRN 03/20/17 Ketorolac Tromethamine (Ketorolac Tromethamine) 10 Mg Tablet 10 MG PO Q6H Y for PAIN-SEVERE, #16 TAB Prov: RONEL MARES APRN 03/20/17 Copy Copies To 1: ITZEL CHANDRA DO; DENY MONTAGUE MD, PETER J APRN March 20, 2017 21:10
[2017-03-20 21:11] LABS: BASOPHILS % (AUTO) 0 % (0-10); EOSINOPHILS # (AUTO) 0.3 10^3/uL (0.0-0.3); EOSINOPHILS % (AUTO) 5 % (0-10); LYMPHOCYTES # (AUTO) 1.7 X 10^3 (1.0-4.0); LYMPHOCYTES % (AUTO) 23 % (12-44); MEAN CORPUSCULAR HEMOGLOBIN 31 PG (25-34); MEAN CORPUSCULAR HGB CONC 33 G/DL (32-36); MEAN CORPUSCULAR VOLUME 94 FL (80-99); MEAN PLATELET VOLUME 9.5 FL (7.4-10.4); MONOCYTES # (AUTO) 1.2 X 10^3 (0.0-1.0); MONOCYTES % (AUTO) 17 % (0-12); NEUTROPHILS # (AUTO) 3.9 X 10^3 (1.8-7.8); NEUTROPHILS % (AUTO) 55 % (42-75); PLATELET COUNT 149 10^3/uL (130-400); RED BLOOD COUNT 2.86 10^6/uL (4.35-5.85); RED CELL DISTRIBUTION WIDTH 13.9 % (10.0-14.5); WHITE BLOOD COUNT 7.1 10^3/uL (4.3-11.0)
[2017-03-20 21:12] LABS: RENAL EPITHELIAL CELLS,URINE 0-2 /HPF
[2017-03-20] MEDS ORDERED: fentaNYL PATCH 25 MCG (DURAGESIC) TD SCH (21:15)
[2017-03-20] MEDS ORDERED: cefTRIAXone INJECTION 1,000 MG in NS (IVPB) 50 ML IV ONE (21:15)
[2017-03-20 21:38] LABS: CALCIUM 8.9 MG/DL (8.5-10.1); CREATININE SERUM 0.95 MG/DL (0.60-1.30); POTASSIUM 4.1 MMOL/L (3.6-5.0)
[2017-03-20] MEDS ORDERED: KETO10TA PO (21:56)
[2017-03-20] MEDS ORDERED: CEFU250T80 PO (22:07)
[2017-03-20 22:13] VITALS: BP 123/58
== END 2017-03-20 22:13 | disposition home or self-care (01) ==
LOC: EDUNIT# 20:41 → ER 20:42
DX: M48.54XA Collapsed vertebra, not elsewhere classified, thoracic region, initial encounter for fracture (principal); C25.9 Malignant neoplasm of pancreas, unspecified; N39.0 Urinary tract infection, site not specified; I10 Essential (primary) hypertension; Z79.899 Other long term (current) drug therapy; Z86.718 Personal history of other venous thrombosis and embolism
CPT/HCPCS: 36415; 80048; 81000; 85025; 87088; 96374; 96375

== ENCOUNTER 2017-04-01 10:40 | Emergency (ER) | payer MEDICARE ==
[~2017-04-01] VITALS: Ht 175.3 cm; Wt 77.4 kg
[~2017-04-01 10:40] MED LIST changes: +CEFU250T80 PO; +KETO10TA PO
[2017-04-01] MEDS ORDERED: ASPIRIN 81 MG CHEW (CHILDREN'S ASA) ONE (10:53)
[2017-04-01] MEDS ORDERED: ASPIRIN 81 MG CHEW (CHILDREN'S ASA) PO ONE (11:00)
--- NOTE | 2017-04-01 11:06 | ED Chest Pain ---
General Chief Complaint: Chest Pain Stated Complaint: IRR HEART RATE Source: patient Exam Limitations: no limitations (SALINA COTA MD) History of Present Illness Time seen by provider: 10:47 Initial Comments Here with report of chest discomfort that she describes as a fullness feeling it is associated with palpitations. She states that this is worse with activity and better with rest. She denies nausea, vomiting or diarrhea. Does have some shortness of breath associated with it. Does have history of pancreatic cancer and was at the cancer center today when this worsened. She went there because of this problem at home. Timing/Duration: 12-24 hours Severity/Quality: moderate, other (fullness) Location: central Radiation: no radiation Activities at Onset: activity Prior CP/Workup: cardiac cath, echocardiography, stress test ASA po NETBACKUP ENGINEER: No NTG SL NETBACKUP ENGINEER: No Associated Symptoms: No abdominal pain, No back pain, No fever/chills, nausea/ vomiting, shortness of breath, weakness (SALINA COTA MD) Allergies and Home Medications Allergies Coded Allergies: codeine (Verified Adverse Reaction, Mild, NAUSEA, 07/30/08) meperidine (Verified Adverse Reaction, Mild, N/V, 01/17/10) morphine (Verified Adverse Reaction, Mild, NAUSEA, 07/30/08) Home Medications Diazepam 5 Mg Tablet, 5 MG PO Q8H PRN for ANXIETY, (Reported) Doxazosin Mesylate 2 Mg Tablet, 2 MG PO BID, (Reported) Furosemide 20 Mg Tablet, 20 MG PO Q48H, (Reported) Hydromorphone HCl 2 Mg Tablet, 2 MG PO 4 times a day PRN for pain, #14 Start with one half tab and may increase to 1 tab if pain relief not Prescribed by: ZAYRA ELIZONDO on 03/18/17 1501 Lisinopril 40 Mg Tablet, 40 MG PO DAILY, (Reported) Metoprolol Succinate 50 Mg Tab.er.24h, 50 MG PO HS, (Reported) TAKES ALONG WITH 100MG TABLET AT BEDTIME FOR A TOTAL BEDTIME DOSE OF 150MG [Oxycodone Hcl] 5 MG TAB, 10 MG PO Q4H PRN for PAIN-SEVERE for 14 Days, #30 Prescribed by: ERICKA MONTGOMERY on 02/17/17 0922 Review of Systems Constitutional: see HPI, No chills, No fever EENTM: No Symptoms Reported Respiratory: No Symptoms Reported Cardiovascular: See HPI, Lightheadedness, Palpitations Gastrointestinal: See HPI, Nausea, Denies Vomiting Genitourinary: No Symptoms Reported Musculoskeletal: no symptoms reported Skin: no symptoms reported (SALINA COTA MD) All Other Systems Reviewed Negative Unless Noted: Yes (SALINA COTA MD) Past Ixqrvhm-Zidesj-Bctlmh Hx Patient Social History Alcohol Use: Denies Use Recreational Drug Use: No Smoking Status: Former Smoker Type Used: Cigarettes Former Smoker/When Quit: Dec 16, 2001 Recent Foreign Travel: No Contact w/Someone Who Travel: No Recent Hopitalizations: No (SALINA COTA MD) Immunizations Up To Date Tetanus Booster (TDap): Unknown Date of Influenza Vaccine: Oct 15, 2016 (SALINA COTA MD) Seasonal Allergies Seasonal Allergies: No (SALINA COTA MD) Surgeries HX Surgeries: Yes Surgeries: Abdominal, Appendectomy, Eye Surgery, Gallbladder, Hysterectomy, Vascular Surgery (SALINA COTA MD) Respiratory Hx Respiratory Disorders: No (SALINA COTA MD) Cardiovascular Hx Cardiac Disorders: Yes Cardiac Disorders: Deep Vein Thrombosis, Hypertension, Peripheral Vascular (SALINA COTA MD) Neurological Hx Neurological Disorders: No (SALINA COTA MD) Reproductive System Hx Reproductive Disorders: No 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, 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 (SALINA COTA MD) Genitourinary Hx Genitourinary Disorders: No (SALINA COTA MD) Gastrointestinal Hx Gastrointestinal Disorders: Yes (PANCREATIC CANCER) Gastrointestinal Disorders: Gastroesophageal Reflux (SALINA COTA MD) Musculoskeletal Hx Musculoskeletal Disorders: Yes Musculoskeletal Disorders: Degenerate Disk Disease, Arthritis (SALINA COTA MD) Endocrine Hx Endocrine Disorders: No (SALINA COTA MD) HEENT HX ENT Disorders: Yes (DENTURES) HEENT Disorders: Cataract (SALINA COTA MD) Cancer Hx Cancer: Yes Cancer: Pancreatic (SALINA COTA MD) Psychosocial Hx Psychiatric Problems: No (SALINA COTA MD) Integumentary HX Skin/Integumentary Disorder: No (POST OP WOUND INFECTIONS, DEHISCENCE) (SALINA COTA MD) Blood Transfusions Hx Blood Disorders: No Adverse Reaction to a Blood Tr: No (SALINA COTA MD) Reviewed Nursing Assessment Reviewed/Agree w Nursing PMH: Yes (SALINA COTA MD) Family Medical History Family Medial History: Acute lymphoblastic leukemia (ALL) G8 BROTHER Alzheimer's disease 19 FATHER Completed stroke 19 MOTHER Diabetes mellitus 19 MOTHER (SALINA COTA MD) Family Medial History: Acute lymphoblastic leukemia (ALL) G8 BROTHER Alzheimer's disease 19 FATHER Completed stroke 19 MOTHER Diabetes mellitus 19 MOTHER (EUGENE BENJAMIN) Physical Exam Vital Signs Vital Sign - Last 12Hours 04/01/17 04/01/17 10:50 11:08 Temp 99.3 Pulse 116 Resp 20 B/P (MAP) 171/88 Pulse Ox 98 O2 Delivery Nasal Cannula O2 Flow Rate 2.00 FiO2 98 (EUGENE BENJAMIN) Vital Signs Capillary Refill : (SALINA COTA MD) General Appearance: No Apparent Distress, WD/WN HEENT: PERRL/EOMI, Pharynx Normal Neck: Non Tender, Supple Respiratory: Lungs Clear, Normal Breath Sounds Cardiovascular: No Murmur, Tachycardia Gastrointestinal: Non Tender, Soft Extremity: Normal Range of Motion, Non Tender, No Pedal Edema Neurologic/Psychiatric: Alert, Oriented x3, No Motor/Sensory Deficits Skin: Normal Color, Warm/Dry (SALINA COTA MD) Progress/Results/Core Measures Results/Orders Lab Results Laboratory Tests Test 04/01/17 11:10 Range/Units White Blood Count 8.6 4.3-11.0 10^3/uL Red Blood Count 3.38 L 4.35-5.85 10^6/uL Hemoglobin 10.3 L 11.5-16.0 G/DL Hematocrit 32 L 35-52 % Mean Corpuscular Volume 95 80-99 FL Mean Corpuscular Hemoglobin 31 25-34 PG Mean Corpuscular Hemoglobin Concent 32 32-36 G/DL Red Cell Distribution Width 15.3 H 10.0-14.5 % Platelet Count 397 130-400 10^3/uL Mean Platelet Volume 9.5 7.4-10.4 FL Neutrophils (%) (Auto) 75 42-75 % Lymphocytes (%) (Auto) 12 12-44 % Monocytes (%) (Auto) 11 0-12 % Eosinophils (%) (Auto) 1 0-10 % Basophils (%) (Auto) 1 0-10 % Neutrophils # (Auto) 6.5 1.8-7.8 X 10^3 Lymphocytes # (Auto) 1.1 1.0-4.0 X 10^3 Monocytes # (Auto) 1.0 0.0-1.0 X 10^3 Eosinophils # (Auto) 0.1 0.0-0.3 10^3/uL Basophils # (Auto) 0.0 0.0-0.1 10^3/uL Prothrombin Time 13.3 12.2-14.7 SEC INR Comment 1.0 0.8-1.4 Activated Partial Thromboplast Time 27 24-35 SEC D-Dimer 1.58 H 0.00-0.49 UG/ML Sodium Level 135 135-145 MMOL/L Potassium Level 3.8 3.6-5.0 MMOL/L Chloride Level 102 98-107 MMOL/L Carbon Dioxide Level 25 21-32 MMOL/L Anion Gap 8 5-14 MMOL/L Blood Urea Nitrogen 11 7-18 MG/DL Creatinine 0.84 0.60-1.30 MG/DL Estimat Glomerular Filtration Rate > 60 BUN/Creatinine Ratio 13 Glucose Level 167 H 70-105 MG/DL Calcium Level 9.0 8.5-10.1 MG/DL Magnesium Level 1.8 1.8-2.4 MG/DL Total Bilirubin 2.5 H 0.1-1.0 MG/DL Aspartate Amino Transf (AST/SGOT) 598 H 5-34 U/L Alanine Aminotransferase (ALT/SGPT) 379 H 0-55 U/L Alkaline Phosphatase 485 H 40-136 U/L Myoglobin 63.6 10.0-92.0 NG/ML Troponin I < 0.30 <0.30 NG/ML Total Protein 6.6 6.4-8.2 G/DL Albumin 3.5 3.2-4.5 G/DL Amylase Level 21 L 25-125 U/L Lipase 4 L 8-78 U/L (EUGENE BENJAMIN 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) Medications Given in ED Current Medications Medications Dose Ordered Sig/Fracisco Route Start Time Stop Time Status Last Admin Dose Admin Aspirin 324 mg ONCE ONCE PO 04/01/17 11:00 04/01/17 11:01 DC 04/01/17 10:57 324 MG Iohexol 150 ml ONCE ONCE IV 04/01/17 12:15 04/01/17 12:16 DC 04/01/17 12:40 125 ML Ondansetron HCl 4 mg ONCE ONCE IVP 04/01/17 11:30 04/01/17 11:31 DC 04/01/17 11:30 4 MG Sodium Chloride 100 ml ONCE ONCE IV 04/01/17 12:15 04/01/17 12:16 DC 04/01/17 12:40 80 ML Sodium Chloride 1,000 ml @ 0 mls/hr Q0M ONCE IV 04/01/17 12:05 04/01/17 12:06 DC 04/01/17 12:08 1,000 MLS/HR (EUGENE BENJAMIN) Vital Signs/I&O Vital Sign - Last 12Hours 04/01/17 04/01/17 04/01/17 10:50 11:08 11:32 Temp 99.3 Pulse 116 Resp 20 B/P (MAP) 171/88 Pulse Ox 98 97 O2 Delivery Nasal Cannula Room Air Room Air O2 Flow Rate 2.00 FiO2 98 (EUGENE BENJAMIN) Progress Note : Progress Note Seen and evaluated. IV, labs, EKG and chest x-ray ordered. ASA 324 mg by mouth. No nitros patient is not having chest pain. Normal saline [address] angiogram chest ordered due to elevated d-dimer in the setting of cancer which increases her risk for pulmonary embolism. Patient also noted to be hypoxic requiring oxygen at 2 L to keep sats greater than 89 percent. Monitor patient. 1430: CT angiogram results noted. Fluids continuing. There is concerns about biliary duct obstruction. She is on chemotherapy and her last dose of chemotherapy was on 03/11/17. She is on gemcitabine and Abraxane for her pancreatic cancer. 1520: Patient's heart rate has improved to the mid 90s. O2 sat 96 percent on 2 L. Blood pressure 149/67. I did discuss the case with Dr. Ha at [facility] in [facility]. Patient will need transfer due to the need of GI specialty for biliary duct blockage in the setting of previous stent placement. She also has pancreatic cancer. No indications of pulmonary embolism. Troponin is negative and there is no indication of myocardial infarction on EKG currently. I did discuss the case with the patient and she agrees to transfer. Dr. Ha has accepted patient for transfer. To [facility] via [facility]. (SALINA COTA MD) ECG Initial ECG Impression Date: April 01, 2017 Initial ECG Impression Time: 10:49 Initial ECG Rate: 1113 Initial ECG Rhythm: S.Tach Comment Sinus tachycardia with normal axis. No evidence of ST elevation CT. Morphology similar but rate increased from previous of 12/13/15. Interpreted by me. (SALINA COTA MD) Diagnostic Imaging Diagonstic Imaging: Xray Plain Films/CT/US/NM/MRI: chest Comments NAME: ABILIO COE [facility] REC#: [id number] PT STATUS: REG ER : 1935 PHYSICIAN: SALINA COTA MD ADMIT DATE: 04/01/17/ER Signed Date of Exam: 04/01/17 CHEST 1 VIEW, AP/PA ONLY Portable upright radiograph of the chest. INDICATION: Chest fullness, arrhythmia. FINDINGS: The lungs demonstrate dense nodular foci in the right lung base similar to the prior study, may relate to calcified granulomas. The heart size is borderline in size. No effusion or pneumothorax. The mediastinum and jory appear unremarkable. IVC filter is seen and infusion port with the tip at the SVC level noted. IMPRESSION: Borderline cardiac size. No acute process. Dictated by: Dictated on workstation # [id number] Dict: 04/01/17 1125 Trans: 04/01/17 1130 Interpreted by: BANDAR RIVERA MD Electronically signed by: BANDAR RIVERA MD 04/01/17 1130 Diagonstic Imaging: CT Plain Films/CT/US/NM/MRI: chest (SALINA COTA MD) Diagonstic Imaging: CT Plain Films/CT/US/NM/MRI: chest Comments NAME: DOROTEO COEDA [facility] REC#: [id number] PT STATUS: REG ER : 1935 PHYSICIAN: SALINA COTA MD ADMIT DATE: 04/01/17/ER Draft Date of Exam:04/01/17 CT ANGIO CHEST W INDICATION: Shortness of breath, history of recent back surgery, history of pancreatic cancer. CTA chest obtained obtained with IV contrast bolus and axial slices and MIP reconstructions. Comparison made with 09/24/2016. The pulmonary parenchymal vessels appear well opacified with no CT evidence of pulmonary emboli. There is no evidence of thoracic aortic aneurysm or dissection. There is no pleural or pericardial effusion. There are no enlarged axillary nodes. There is some bibasilar parenchymal scarring. There are calcified granulomata in the right lower lobe which are similar to the previous study. There is no definite pulmonary metastatic disease. Visualized portions of the upper abdomen demonstrate dilatation of the biliary tree which is worsened compared to the prior study and raises the possibility of malfunction of the patient's indwelling stent. IMPRESSION: No CT evidence of pulmonary emboli or aortic dissection. Old granulomatous changes in the right lung are noted with bibasilar scarring and/or atelectasis. There is no pleural fluid. There does appear to be increased biliary dilatation in the upper abdomen when compared to the previous study, due to the patient's known pancreatic mass. The patient does have an indwelling biliary stent. Its function is questioned due to the fact that there is worsening biliary dilatation. Correlate with clinical findings. Dictated on workstation # [id number] Dict: 04/01/17 1255 Trans: 04/01/17 1307 [id number] Interpreted by: INGRID RIOS MD Electronically signed by: Reviewed: Reviewed by Me, Reviewed/Discussed (EUGENE BENJAMIN) Departure Impression Impression: Primary Impression: Bile duct obstruction Additional Impression: Pancreatic cancer Qualified Codes: C25.9 - Malignant neoplasm of pancreas, unspecified Disposition: 02 XFER SHT-TRM HOSP Condition: Stable Transfer Transfer Time: 15:20 Transfer Facility: [place], [place], Dr. Ha accepting. Method of Transfer: EMS (SALINA COTA MD) Departure-Patient Inst. Referrals: DENY MONTAGUE MD (PCP/Family) Primary Care Physician SALINA COTA MD April 01, 2017 11:06 EUGENE BENJAMIN April 01, 2017 13:31
[2017-04-01 11:22] LABS: BASOPHILS % (AUTO) 1 % (0-10); EOSINOPHILS # (AUTO) 0.1 10^3/uL (0.0-0.3); EOSINOPHILS % (AUTO) 1 % (0-10); LYMPHOCYTES # (AUTO) 1.1 X 10^3 (1.0-4.0); LYMPHOCYTES % (AUTO) 12 % (12-44); MEAN CORPUSCULAR HEMOGLOBIN 31 PG (25-34); MEAN CORPUSCULAR HGB CONC 32 G/DL (32-36); MEAN CORPUSCULAR VOLUME 95 FL (80-99); MEAN PLATELET VOLUME 9.5 FL (7.4-10.4); MONOCYTES % (AUTO) 11 % (0-12); NEUTROPHILS # (AUTO) 6.5 X 10^3 (1.8-7.8); NEUTROPHILS % (AUTO) 75 % (42-75); PLATELET COUNT 397 10^3/uL (130-400); RED BLOOD COUNT 3.38 10^6/uL (4.35-5.85); RED CELL DISTRIBUTION WIDTH 15.3 % (10.0-14.5); WHITE BLOOD COUNT 8.6 10^3/uL (4.3-11.0)
[2017-04-01] MEDS ORDERED: ONDANSETRON 4 MG/2 ML (SDV) Z0FRAN ONE (11:22)
[2017-04-01] MEDS ORDERED: ONDANSETRON 4 MG/2 ML (SDV) Z0FRAN IVP ONE (11:30)
--- NOTE | 2017-04-01 11:31 | Diagnostic Imaging Report ---
Portable upright radiograph of the chest. INDICATION: Chest fullness, arrhythmia. FINDINGS: The lungs demonstrate dense nodular foci in the right lung base similar to the prior study, may relate to calcified granulomas. The heart size is borderline in size. No effusion or pneumothorax. The mediastinum and jory appear unremarkable. IVC filter is seen and infusion port with the tip at the SVC level noted. IMPRESSION: Borderline cardiac size. No acute process. Dictated by: Dictated on workstation # [id number]
[2017-04-01 11:32] LABS: PROTHROMBIN TIME PATIENT 13.3 SEC (12.2-14.7)
[2017-04-01 11:42] LABS: ALANINE AMINOTRANSFERASE 379 U/L (0-55); ALBUMIN 3.5 G/DL (3.2-4.5); AMYLASE 21 U/L (25-125); ANION GAP 8 MMOL/L (5-14); ASPARTATE AMINO TRANSFERASE 598 U/L (5-34); BILIRUBIN,TOTAL 2.5 MG/DL (0.1-1.0); BLOOD UREA NITROGEN 11 MG/DL (7-18); BUN/CREATININE RATIO 13; CARBON DIOXIDE 25 MMOL/L (21-32); CHLORIDE 102 MMOL/L (98-107); CREATININE SERUM 0.84 MG/DL (0.60-1.30); GFR ESTIMATED > 60; GLUCOSE 167 MG/DL (70-105); LIPASE 4 U/L (8-78); MAGNESIUM 1.8 MG/DL (1.8-2.4); POTASSIUM 3.8 MMOL/L (3.6-5.0); SODIUM 135 MMOL/L (135-145); TOTAL PROTEIN 6.6 G/DL (6.4-8.2)
[2017-04-01 11:51] LABS: MYOGLOBIN SERUM 63.6 NG/ML (10.0-92.0)
[2017-04-01] MEDS ORDERED: NS IV 1000 ML 1,000 ML ONE (12:02)
[2017-04-01] MEDS ORDERED: NS IV 1000 ML 1,000 ML IV ONE (12:05)
[2017-04-01] MEDS ORDERED: IOHEXOL 350 MG/ML 150 ML (OMNIPAQUE 350) VIAL IV ONE (12:15)
[2017-04-01] MEDS ORDERED: NS 100 ML (IVPB) BAG IV ONE (12:15)
--- NOTE | 2017-04-01 13:08 | Diagnostic Imaging Report ---
INDICATION: Shortness of breath, history of recent back surgery, history of pancreatic cancer. CTA chest obtained obtained with IV contrast bolus and axial slices and MIP reconstructions. Comparison made with 09/24/2016. The pulmonary parenchymal vessels appear well opacified with no CT evidence of pulmonary emboli. There is no evidence of thoracic aortic aneurysm or dissection. There is no pleural or pericardial effusion. There are no enlarged axillary nodes. There is some bibasilar parenchymal scarring. There are calcified granulomata in the right lower lobe which are similar to the previous study. There is no definite pulmonary metastatic disease. Visualized portions of the upper abdomen demonstrate dilatation of the biliary tree which is worsened compared to the prior study and raises the possibility of malfunction of the patient's indwelling stent. IMPRESSION: No CT evidence of pulmonary emboli or aortic dissection. Old granulomatous changes in the right lung are noted with bibasilar scarring and/or atelectasis. There is no pleural fluid. There does appear to be increased biliary dilatation in the upper abdomen when compared to the previous study, due to the patient's known pancreatic mass. The patient does have an indwelling biliary stent. Its function is questioned due to the fact that there is worsening biliary dilatation. Correlate with clinical findings. Dictated by: Dictated on workstation # [id number]
[2017-04-01 16:35] VITALS: BP 112/101
[2017-04-01] MEDS ORDERED: fentaNYL INJECTION 100 MCG/2 ML AMP ONE (16:49)
== END 2017-04-01 17:43 | disposition short-term general hospital (02) ==
LOC: EDUNIT# 10:40 → ER 10:42
DX: K83.1 Obstruction of bile duct (principal); C25.9 Malignant neoplasm of pancreas, unspecified; I10 Essential (primary) hypertension; J84.10 Pulmonary fibrosis, unspecified; Z79.899 Other long term (current) drug therapy; Z95.828 Presence of other vascular implants and grafts
CPT/HCPCS: 36415; 71010; 71275; 80053; 82150; 83690; 83735; 83874; 84484; 85025; 85379; 85610; 85730; 93005; 93041; 96361; 96374; 96375

== ENCOUNTER → 2017-04-14 | Outpatient (CLI) | payer MEDICARE ==
--- NOTE | 2017-04-14 12:40 | Diagnostic Imaging Report ---
PROCEDURE: US left lower extremity venous. TECHNIQUE: Multiple real-time grayscale images were obtained over the left lower extremity in various projections. Additional duplex Doppler and color Doppler images were also obtained. INDICATION: Left leg swelling. Veins in the left leg were compressible and had normal spontaneous and augmented flow. IMPRESSION: Negative venous Doppler left leg. Dictated by: Dictated on workstation # [id number]
== END ==
LOC: RAD 11:53
PROVIDERS: ATTEND Nurse Practitioner Adult Health
DX: M79.89 Other specified soft tissue disorders (principal); M79.605 Pain in left leg; C25.0 Malignant neoplasm of head of pancreas

== ENCOUNTER → 2017-04-27 | Outpatient (CLI) | payer MEDICARE ==
[~2017-04-27] MED LIST changes: +BARIUM SUSPENSION 2.1% (VANILLA SILQ) 450 ML PO ONE; +IOHEXOL 350 MG/ML 100 ML (OMNIPAQUE 350) VIAL IV ONE; +NS 100 ML (IVPB) BAG IV ONE
--- NOTE | 2017-04-27 17:21 | Diagnostic Imaging Report ---
PROCEDURE: CT chest with contrast, CT abdomen and pelvis with and without contrast. TECHNIQUE: Pre and post intravenous contrast axial imaging of the abdomen and pelvis and post contrast axial imaging of the chest were performed. INDICATION: Pancreatic cancer. 100 mL of Omnipaque 350 is administered intravenously. COMPARISON: A comparison CTA chest of 04/01/2017 and studies from 01/23/2017 and 12/17/2016. FINDINGS: CT CHEST: The previously seen left supraclavicular lymph node mass measures now 2.8 x 1.3 cm compared to 2.9 x 2.5 cm. There is a 9 mm retroesophageal lymph node at the level of the mellisa seen smaller compared to previous measurement of 1.2 cm based on 12/17/2016 exam. There is otherwise no mediastinal lymphadenopathy or mass. Calcified granulomas in the infracarinal region and right hilum are seen. The heart size is normal. The thoracic aorta is normal in caliber. Previously seen 5 mm nodule in the right upper lobe just above the minor fissure is again noted without significant change. The previously seen nodule in the left lower lobe is not clearly identified at this point. There is no suspicious new nodules seen. No significant consolidation or lung mass. Probably postinfectious calcifications in the right lower lobe are seen. The osseous structures demonstrate post-kyphoplasty changes in the lower thoracic spine. CT ABDOMEN AND PELVIS: There is a prominent amount of biliary air seen with mild to moderate intrahepatic biliary dilatation. There is a stent inside an older stent within the CBD identified. There is a poorly defined mass in the upper aspect of the pancreatic head previously seen which at this time demonstrates enhancement similar to pancreas parenchyma and the overall measurements of the region involves 3.2 x 2.9 cm, a significant decrease in size compared to prior measurements of 3.8 x 3.3 cm. The pancreatic parenchyma in the distal aspect of the pancreas is atrophic. The previously seen pericaval enlarged lymph node is now nonenlarged. There is an aortocaval remaining lymph node measuring 1 cm slightly smaller compared to the previous exam. There is an IVC filter centered around the level of the renal arteries. The kidneys have symmetric enhancement and contrast excretion. No hydronephrosis. There are simple renal cysts seen. In the pelvis, there is no lymphadenopathy seen. There is suggestion of prior hysterectomy. The osseous structures demonstrate kyphoplasty change at L2 level. No aggressive appearing mass. IMPRESSION: CT CHEST: 1. A 2.8 cm left supraclavicular lymph node decreased in size compared to the prior exam. 2. Stable indeterminate 5 mm right upper lobe nodule just above the minor fissure of uncertain etiology. 3. A 9 mm retroesophageal lymph node in the mid chest, smaller compared to the previous exam. CT ABDOMEN AND PELVIS: 1. Interval decrease in the size of the pancreatic head mass. The mass is not well delineated at this time with maximum axial measurement of the pancreatic head area is 3.2 cm. 2. Resolution of previously seen enlarged pericaval lymph nodes except for a remaining one aortocaval lymph node measuring 1 cm. Dictated by: Dictated on workstation # [id number]
== END ==
LOC: RAD 11:36
PROVIDERS: ATTEND Nurse Practitioner Adult Health
DX: C25.0 Malignant neoplasm of head of pancreas (principal); R91.1 Solitary pulmonary nodule
CPT/HCPCS: 71260; 74178

== ENCOUNTER 2017-06-03 10:23 | Outpatient (RCR) | payer MEDICARE ==
[2017-03-18 11:53] LABS: BASOPHILS % (AUTO) 0 % (0-10); EOSINOPHILS # (AUTO) 0.1 10^3/uL (0.0-0.3); EOSINOPHILS % (AUTO) 2 % (0-10); LYMPHOCYTES # (AUTO) 1.9 X 10^3 (1.0-4.0); LYMPHOCYTES % (AUTO) 36 % (12-44); MEAN CORPUSCULAR HEMOGLOBIN 31 PG (25-34); MEAN CORPUSCULAR HGB CONC 33 G/DL (32-36); MEAN CORPUSCULAR VOLUME 94 FL (80-99); MEAN PLATELET VOLUME 9.2 FL (7.4-10.4); MONOCYTES # (AUTO) 0.7 X 10^3 (0.0-1.0); MONOCYTES % (AUTO) 14 % (0-12); NEUTROPHILS # (AUTO) 2.5 X 10^3 (1.8-7.8); NEUTROPHILS % (AUTO) 48 % (42-75); PLATELET COUNT 119 10^3/uL (130-400); RED BLOOD COUNT 2.99 10^6/uL (4.35-5.85); RED CELL DISTRIBUTION WIDTH 13.4 % (10.0-14.5); WHITE BLOOD COUNT 5.3 10^3/uL (4.3-11.0)
[2017-03-18 12:17] LABS: ANION GAP 7 MMOL/L (5-14); BLOOD UREA NITROGEN 12 MG/DL (7-18); BUN/CREATININE RATIO 14; CALCIUM 8.8 MG/DL (8.5-10.1); CARBON DIOXIDE 26 MMOL/L (21-32); CHLORIDE 106 MMOL/L (98-107); CREATININE SERUM 0.86 MG/DL (0.60-1.30); GFR ESTIMATED > 60; GLUCOSE 100 MG/DL (70-105); POTASSIUM 4.3 MMOL/L (3.6-5.0); SODIUM 139 MMOL/L (135-145)
[2017-04-07 10:52] LABS: BASOPHILS # (AUTO) 0.1 10^3/uL (0.0-0.1); BASOPHILS % (AUTO) 1 % (0-10); EOSINOPHILS # (AUTO) 0.3 10^3/uL (0.0-0.3); EOSINOPHILS % (AUTO) 4 % (0-10); LYMPHOCYTES % (AUTO) 24 % (12-44); MEAN CORPUSCULAR HEMOGLOBIN 31 PG (25-34); MEAN CORPUSCULAR HGB CONC 32 G/DL (32-36); MEAN CORPUSCULAR VOLUME 96 FL (80-99); MEAN PLATELET VOLUME 9.5 FL (7.4-10.4); MONOCYTES # (AUTO) 1.2 X 10^3 (0.0-1.0); MONOCYTES % (AUTO) 15 % (0-12); NEUTROPHILS # (AUTO) 4.7 X 10^3 (1.8-7.8); NEUTROPHILS % (AUTO) 56 % (42-75); PLATELET COUNT 348 10^3/uL (130-400); RED BLOOD COUNT 3.14 10^6/uL (4.35-5.85); WHITE BLOOD COUNT 8.3 10^3/uL (4.3-11.0)
[2017-04-07 11:09] LABS: ALANINE AMINOTRANSFERASE 61 U/L (0-55); ALBUMIN 3.2 G/DL (3.2-4.5); ANION GAP 7 MMOL/L (5-14); ASPARTATE AMINO TRANSFERASE 22 U/L (5-34); BILIRUBIN,TOTAL 1.1 MG/DL (0.1-1.0); BLOOD UREA NITROGEN 7 MG/DL (7-18); BUN/CREATININE RATIO 9; CALCIUM 8.4 MG/DL (8.5-10.1); CARBON DIOXIDE 26 MMOL/L (21-32); CHLORIDE 106 MMOL/L (98-107); CREATININE SERUM 0.75 MG/DL (0.60-1.30); GFR ESTIMATED > 60; GLUCOSE 105 MG/DL (70-105); MAGNESIUM 1.8 MG/DL (1.8-2.4); POTASSIUM 3.8 MMOL/L (3.6-5.0); SODIUM 139 MMOL/L (135-145); TOTAL PROTEIN 6.1 G/DL (6.4-8.2)
[2017-04-22 12:59] LABS: BASOPHILS % (AUTO) 1 % (0-10); EOSINOPHILS # (AUTO) 0.3 10^3/uL (0.0-0.3); EOSINOPHILS % (AUTO) 5 % (0-10); LYMPHOCYTES # (AUTO) 1.7 X 10^3 (1.0-4.0); LYMPHOCYTES % (AUTO) 27 % (12-44); MEAN CORPUSCULAR HEMOGLOBIN 31 PG (25-34); MEAN CORPUSCULAR HGB CONC 32 G/DL (32-36); MEAN CORPUSCULAR VOLUME 95 FL (80-99); MEAN PLATELET VOLUME 9.9 FL (7.4-10.4); MONOCYTES # (AUTO) 0.9 X 10^3 (0.0-1.0); MONOCYTES % (AUTO) 13 % (0-12); NEUTROPHILS # (AUTO) 3.6 X 10^3 (1.8-7.8); NEUTROPHILS % (AUTO) 55 % (42-75); PLATELET COUNT 193 10^3/uL (130-400); RED BLOOD COUNT 2.97 10^6/uL (4.35-5.85); RED CELL DISTRIBUTION WIDTH 14.7 % (10.0-14.5); WHITE BLOOD COUNT 6.6 10^3/uL (4.3-11.0)
[2017-04-22 13:17] LABS: ANION GAP 6 MMOL/L (5-14); BLOOD UREA NITROGEN 7 MG/DL (7-18); BUN/CREATININE RATIO 9; CALCIUM 8.9 MG/DL (8.5-10.1); CARBON DIOXIDE 27 MMOL/L (21-32); CHLORIDE 105 MMOL/L (98-107); CREATININE SERUM 0.76 MG/DL (0.60-1.30); GFR ESTIMATED > 60; GLUCOSE 138 MG/DL (70-105); POTASSIUM 4.3 MMOL/L (3.6-5.0); SODIUM 138 MMOL/L (135-145)
[2017-04-29 13:47] LABS: BASOPHILS % (AUTO) 1 % (0-10); EOSINOPHILS # (AUTO) 0.1 10^3/uL (0.0-0.3); EOSINOPHILS % (AUTO) 3 % (0-10); LYMPHOCYTES # (AUTO) 1.8 X 10^3 (1.0-4.0); LYMPHOCYTES % (AUTO) 41 % (12-44); MEAN CORPUSCULAR HEMOGLOBIN 31 PG (25-34); MEAN CORPUSCULAR HGB CONC 32 G/DL (32-36); MEAN CORPUSCULAR VOLUME 95 FL (80-99); MEAN PLATELET VOLUME 10.1 FL (7.4-10.4); MONOCYTES # (AUTO) 0.5 X 10^3 (0.0-1.0); MONOCYTES % (AUTO) 10 % (0-12); NEUTROPHILS # (AUTO) 1.9 X 10^3 (1.8-7.8); NEUTROPHILS % (AUTO) 45 % (42-75); PLATELET COUNT 172 10^3/uL (130-400); RED CELL DISTRIBUTION WIDTH 14.9 % (10.0-14.5); WHITE BLOOD COUNT 4.3 10^3/uL (4.3-11.0)
[2017-04-29 14:07] LABS: CALCIUM 8.9 MG/DL (8.5-10.1); CREATININE SERUM 0.95 MG/DL (0.60-1.30); ICTERUS 0.6 (0-1.9)
[2017-05-06 13:11] LABS: BASOPHILS % (AUTO) 0 % (0-10); EOSINOPHILS # (AUTO) 0.4 10^3/uL (0.0-0.3); EOSINOPHILS % (AUTO) 6 % (0-10); LYMPHOCYTES # (AUTO) 2.1 X 10^3 (1.0-4.0); LYMPHOCYTES % (AUTO) 31 % (12-44); MEAN CORPUSCULAR HEMOGLOBIN 31 PG (25-34); MEAN CORPUSCULAR HGB CONC 32 G/DL (32-36); MEAN CORPUSCULAR VOLUME 96 FL (80-99); MEAN PLATELET VOLUME 9.7 FL (7.4-10.4); MONOCYTES % (AUTO) 14 % (0-12); NEUTROPHILS # (AUTO) 3.3 X 10^3 (1.8-7.8); NEUTROPHILS % (AUTO) 49 % (42-75); PLATELET COUNT 321 10^3/uL (130-400); RED BLOOD COUNT 3.18 10^6/uL (4.35-5.85); RED CELL DISTRIBUTION WIDTH 16.5 % (10.0-14.5); WHITE BLOOD COUNT 6.8 10^3/uL (4.3-11.0)
[2017-05-06 13:27] LABS: ALANINE AMINOTRANSFERASE 6 U/L (0-55); ALBUMIN 3.2 GM/DL (3.2-4.5); ANION GAP 7 MMOL/L (5-14); ASPARTATE AMINO TRANSFERASE 14 U/L (5-34); BILIRUBIN,TOTAL 0.9 MG/DL (0.1-1.0); BLOOD UREA NITROGEN 9 MG/DL (7-18); BUN/CREATININE RATIO 11 (0-20); CALCIUM 8.7 MG/DL (8.5-10.1); CARBON DIOXIDE 25 MMOL/L (21-32); CHLORIDE 105 MMOL/L (98-107); CREATININE SERUM 0.84 MG/DL (0.60-1.30); GFR ESTIMATED > 60; GLUCOSE 116 MG/DL (70-105); HEMOLYSIS 5 (-100-29); ICTERUS 0.6 (-100-1.9); LIPEMIA -2 (-100-49); MAGNESIUM 1.9 MG/DL (1.8-2.4); SODIUM 137 MMOL/L (135-145); TOTAL PROTEIN 6.7 GM/DL (6.4-8.2)
[~2017-06-03] VITALS: Ht 171.4 cm; Wt 75.7 kg
[~2017-06-03 10:23] MED LIST changes: -BARIUM SUSPENSION 2.1% (VANILLA SILQ) 450 ML PO ONE; +CTR IV SCH; +GEMCITABINE HCL (GENERIC) 1,000 MG, GEMCITABINE HCL (GENERIC) 100 MG in NS (IVPB) CANCE... IV SCH; +GEMCITABINE HCL IV SCH; -IOHEXOL 350 MG/ML 100 ML (OMNIPAQUE 350) VIAL IV ONE; -NS 100 ML (IVPB) BAG IV ONE; +NS IV 500 ML (CANCER CENTER) IV SCH; +NS IV SCH; +PACLITAXEL PROTEIN IV SCH; +PALONOSETRON 0.25 MG, DEXAMETHASONE 10 MG/NS 50 ML IVPB IV PRN
[2017-06-03 11:23] LABS: BASOPHILS # (AUTO) 0.1 10^3/uL (0.0-0.1); BASOPHILS % (AUTO) 1 % (0-10); EOSINOPHILS # (AUTO) 0.4 10^3/uL (0.0-0.3); EOSINOPHILS % (AUTO) 5 % (0-10); LYMPHOCYTES % (AUTO) 29 % (12-44); MEAN CORPUSCULAR HEMOGLOBIN 30 PG (25-34); MEAN CORPUSCULAR HGB CONC 32 G/DL (32-36); MEAN CORPUSCULAR VOLUME 94 FL (80-99); MONOCYTES # (AUTO) 0.7 X 10^3 (0.0-1.0); MONOCYTES % (AUTO) 10 % (0-12); NEUTROPHILS # (AUTO) 3.8 X 10^3 (1.8-7.8); NEUTROPHILS % (AUTO) 55 % (42-75); PLATELET COUNT 202 10^3/uL (130-400); RED BLOOD COUNT 3.15 10^6/uL (4.35-5.85); RED CELL DISTRIBUTION WIDTH 14.9 % (10.0-14.5); WHITE BLOOD COUNT 6.8 10^3/uL (4.3-11.0)
[2017-06-03 11:58] LABS: ALANINE AMINOTRANSFERASE 7 U/L (0-55); ALBUMIN 3.2 GM/DL (3.2-4.5); ANION GAP 7 MMOL/L (5-14); ASPARTATE AMINO TRANSFERASE 17 U/L (5-34); BILIRUBIN,TOTAL 1.3 MG/DL (0.1-1.0); BLOOD UREA NITROGEN 13 MG/DL (7-18); BUN/CREATININE RATIO 15; CALCIUM 8.9 MG/DL (8.5-10.1); CARBON DIOXIDE 22 MMOL/L (21-32); CHLORIDE 104 MMOL/L (98-107); CREATININE SERUM 0.84 MG/DL (0.60-1.30); GFR ESTIMATED > 60; GLUCOSE 98 MG/DL (70-105); MAGNESIUM 1.9 MG/DL (1.8-2.4); POTASSIUM 4.4 MMOL/L (3.6-5.0); SODIUM 133 MMOL/L (135-145); TOTAL PROTEIN 6.7 GM/DL (6.4-8.2)
== END 2017-06-16 | disposition home or self-care (01) ==
LOC: ONC 10:23
PROVIDERS: ATTEND Internal Medicine Hematology & Oncology
DX: Z51.11 Encounter for antineoplastic chemotherapy (principal); C25.0 Malignant neoplasm of head of pancreas; C77.9 Secondary and unspecified malignant neoplasm of lymph node, unspecified; D64.9 Anemia, unspecified; Z79.899 Other long term (current) drug therapy
CPT/HCPCS: 36415; 36591; 80048; 80053; 83735; 85025; 96375; 96413; 96417; 99213

== ENCOUNTER 2017-08-10 13:27 | Outpatient (RCR) | payer MEDICARE ==
[2017-07-15 11:03] LABS: BASOPHILS # (AUTO) 0.1 10^3/uL (0.0-0.1); BASOPHILS % (AUTO) 1 % (0-10); EOSINOPHILS # (AUTO) 0.4 10^3/uL (0.0-0.3); EOSINOPHILS % (AUTO) 5 % (0-10); LYMPHOCYTES # (AUTO) 2.5 X 10^3 (1.0-4.0); LYMPHOCYTES % (AUTO) 27 % (12-44); MEAN CORPUSCULAR HEMOGLOBIN 29 PG (25-34); MEAN CORPUSCULAR HGB CONC 32 G/DL (32-36); MEAN CORPUSCULAR VOLUME 91 FL (80-99); MEAN PLATELET VOLUME 10.1 FL (7.4-10.4); MONOCYTES # (AUTO) 1.1 X 10^3 (0.0-1.0); MONOCYTES % (AUTO) 12 % (0-12); NEUTROPHILS % (AUTO) 56 % (42-75); PLATELET COUNT 281 10^3/uL (130-400); RED BLOOD COUNT 3.71 10^6/uL (4.35-5.85); RED CELL DISTRIBUTION WIDTH 13.4 % (10.0-14.5); WHITE BLOOD COUNT 9.1 10^3/uL (4.3-11.0)
[2017-07-15 11:25] LABS: ALANINE AMINOTRANSFERASE 7 U/L (0-55); ALBUMIN 3.5 GM/DL (3.2-4.5); ANION GAP 4 MMOL/L (5-14); ASPARTATE AMINO TRANSFERASE 16 U/L (5-34); BLOOD UREA NITROGEN 11 MG/DL (7-18); BUN/CREATININE RATIO 14; CALCIUM 8.9 MG/DL (8.5-10.1); CARBON DIOXIDE 27 MMOL/L (21-32); CHLORIDE 103 MMOL/L (98-107); GFR ESTIMATED > 60; GLUCOSE 107 MG/DL (70-105); POTASSIUM 4.4 MMOL/L (3.6-5.0); SODIUM 134 MMOL/L (135-145); TOTAL PROTEIN 6.7 GM/DL (6.4-8.2)
[~2017-08-10 13:27] MED LIST changes: -CTR IV SCH; -GEMCITABINE HCL (GENERIC) 1,000 MG, GEMCITABINE HCL (GENERIC) 100 MG in NS (IVPB) CANCE... IV SCH; -GEMCITABINE HCL IV SCH; -NS IV 500 ML (CANCER CENTER) IV SCH; -NS IV SCH; -PACLITAXEL PROTEIN IV SCH; -PALONOSETRON 0.25 MG, DEXAMETHASONE 10 MG/NS 50 ML IVPB IV PRN
[2017-08-10 13:47] LABS: BASOPHILS % (AUTO) 1 % (0-10); EOSINOPHILS # (AUTO) 0.2 10^3/uL (0.0-0.3); EOSINOPHILS % (AUTO) 3 % (0-10); LYMPHOCYTES # (AUTO) 1.6 X 10^3 (1.0-4.0); LYMPHOCYTES % (AUTO) 24 % (12-44); MEAN CORPUSCULAR HEMOGLOBIN 29 PG (25-34); MEAN CORPUSCULAR HGB CONC 33 G/DL (32-36); MEAN CORPUSCULAR VOLUME 90 FL (80-99); MEAN PLATELET VOLUME 9.6 FL (7.4-10.4); MONOCYTES # (AUTO) 0.6 X 10^3 (0.0-1.0); MONOCYTES % (AUTO) 9 % (0-12); NEUTROPHILS # (AUTO) 4.2 X 10^3 (1.8-7.8); NEUTROPHILS % (AUTO) 63 % (42-75); PLATELET COUNT 246 10^3/uL (130-400); RED BLOOD COUNT 3.61 10^6/uL (4.35-5.85); RED CELL DISTRIBUTION WIDTH 13.5 % (10.0-14.5); WHITE BLOOD COUNT 6.7 10^3/uL (4.3-11.0)
[2017-08-10 14:08] LABS: ALANINE AMINOTRANSFERASE 18 U/L (0-55); ALBUMIN 3.5 GM/DL (3.2-4.5); ANION GAP 9 MMOL/L (5-14); ASPARTATE AMINO TRANSFERASE 22 U/L (5-34); BILIRUBIN,TOTAL 1.1 MG/DL (0.1-1.0); BLOOD UREA NITROGEN 10 MG/DL (7-18); BUN/CREATININE RATIO 12; CALCIUM 8.8 MG/DL (8.5-10.1); CARBON DIOXIDE 20 MMOL/L (21-32); CHLORIDE 106 MMOL/L (98-107); CREATININE SERUM 0.84 MG/DL (0.60-1.30); GFR ESTIMATED > 60; GLUCOSE 125 MG/DL (70-105); POTASSIUM 4.1 MMOL/L (3.6-5.0); SODIUM 135 MMOL/L (135-145); TOTAL PROTEIN 6.9 GM/DL (6.4-8.2)
== END 2017-08-14 | disposition home or self-care (01) ==
LOC: ONC 13:27
PROVIDERS: ATTEND Internal Medicine Hematology & Oncology
DX: C25.0 Malignant neoplasm of head of pancreas (principal); C77.9 Secondary and unspecified malignant neoplasm of lymph node, unspecified; D64.9 Anemia, unspecified; Z79.899 Other long term (current) drug therapy
CPT/HCPCS: 36591; 80053; 85025

== ENCOUNTER 2017-10-06 09:22 | Outpatient (RCR) | payer MEDICARE ==
[2017-09-09 13:08] LABS: BASOPHILS # (AUTO) 0.1 10^3/uL (0.0-0.1); BASOPHILS % (AUTO) 1 % (0-10); EOSINOPHILS # (AUTO) 0.1 10^3/uL (0.0-0.3); EOSINOPHILS % (AUTO) 1 % (0-10); LYMPHOCYTES # (AUTO) 1.8 X 10^3 (1.0-4.0); LYMPHOCYTES % (AUTO) 19 % (12-44); MEAN CORPUSCULAR HEMOGLOBIN 30 PG (25-34); MEAN CORPUSCULAR HGB CONC 33 G/DL (32-36); MEAN CORPUSCULAR VOLUME 90 FL (80-99); MEAN PLATELET VOLUME 9.9 FL (7.4-10.4); MONOCYTES # (AUTO) 1.1 X 10^3 (0.0-1.0); MONOCYTES % (AUTO) 11 % (0-12); NEUTROPHILS # (AUTO) 6.3 X 10^3 (1.8-7.8); NEUTROPHILS % (AUTO) 68 % (42-75); PLATELET COUNT 227 10^3/uL (130-400); RED BLOOD COUNT 3.68 10^6/uL (4.35-5.85); RED CELL DISTRIBUTION WIDTH 14.2 % (10.0-14.5); WHITE BLOOD COUNT 9.3 10^3/uL (4.3-11.0)
[2017-09-09 13:37] LABS: ALANINE AMINOTRANSFERASE 193 U/L (0-55); ALBUMIN 3.2 GM/DL (3.2-4.5); ANION GAP 6 MMOL/L (5-14); ASPARTATE AMINO TRANSFERASE 372 U/L (5-34); BILIRUBIN,TOTAL 3.8 MG/DL (0.1-1.0); BLOOD UREA NITROGEN 8 MG/DL (7-18); BUN/CREATININE RATIO 11; CALCIUM 8.6 MG/DL (8.5-10.1); CARBON DIOXIDE 24 MMOL/L (21-32); CHLORIDE 106 MMOL/L (98-107); CREATININE SERUM 0.71 MG/DL (0.60-1.30); GFR ESTIMATED > 60; GLUCOSE 104 MG/DL (70-105); SODIUM 136 MMOL/L (135-145); TOTAL PROTEIN 6.6 GM/DL (6.4-8.2)
[~2017-10-06 09:22] MED LIST changes: +FLU TRIvalent (5 YOA+) 2017-18 (AFLURIA) 0.5 ML IM ONE; -METO-274 PO; +METO-395 PO; +OXYC-529 PO; -OXYC5TAB71 PO; +PNEUMOCOCCAL VACCINE 25 MCG/0.5 ML VIAL IM ONE
[2017-10-06 10:07] LABS: BASOPHILS # (AUTO) 0.1 10^3/uL (0.0-0.1); BASOPHILS % (AUTO) 1 % (0-10); EOSINOPHILS # (AUTO) 0.4 10^3/uL (0.0-0.3); EOSINOPHILS % (AUTO) 5 % (0-10); LYMPHOCYTES # (AUTO) 2.1 X 10^3 (1.0-4.0); LYMPHOCYTES % (AUTO) 26 % (12-44); MEAN CORPUSCULAR HEMOGLOBIN 31 PG (25-34); MEAN CORPUSCULAR HGB CONC 33 G/DL (32-36); MEAN CORPUSCULAR VOLUME 93 FL (80-99); MEAN PLATELET VOLUME 10.3 FL (7.4-10.4); MONOCYTES % (AUTO) 13 % (0-12); NEUTROPHILS # (AUTO) 4.3 X 10^3 (1.8-7.8); NEUTROPHILS % (AUTO) 54 % (42-75); PLATELET COUNT 239 10^3/uL (130-400); RED BLOOD COUNT 3.38 10^6/uL (4.35-5.85); RED CELL DISTRIBUTION WIDTH 15.8 % (10.0-14.5); WHITE BLOOD COUNT 7.9 10^3/uL (4.3-11.0)
[2017-10-06 10:26] LABS: ALANINE AMINOTRANSFERASE 12 U/L (0-55); ALBUMIN 2.9 GM/DL (3.2-4.5); ANION GAP 9 MMOL/L (5-14); ASPARTATE AMINO TRANSFERASE 20 U/L (5-34); BILIRUBIN,TOTAL 2.8 MG/DL (0.1-1.0); BLOOD UREA NITROGEN 10 MG/DL (7-18); BUN/CREATININE RATIO 12; CALCIUM 8.3 MG/DL (8.5-10.1); CARBON DIOXIDE 23 MMOL/L (21-32); CHLORIDE 106 MMOL/L (98-107); CREATININE SERUM 0.83 MG/DL (0.60-1.30); GFR ESTIMATED > 60; GLUCOSE 125 MG/DL (70-105); POTASSIUM 3.7 MMOL/L (3.6-5.0); SODIUM 138 MMOL/L (135-145); TOTAL PROTEIN 6.4 GM/DL (6.4-8.2)
== END 2017-10-29 16:15 | disposition home or self-care (01) ==
LOC: ONC 09:22
PROVIDERS: ATTEND Internal Medicine Hematology & Oncology
DX: C25.0 Malignant neoplasm of head of pancreas (principal); C77.1 Secondary and unspecified malignant neoplasm of intrathoracic lymph nodes; D64.9 Anemia, unspecified; I25.10 Atherosclerotic heart disease of native coronary artery without angina pectoris; I10 Essential (primary) hypertension; M81.0 Age-related osteoporosis without current pathological fracture; R91.1 Solitary pulmonary nodule; K21.9 Gastro-esophageal reflux disease without esophagitis; Z92.21 Personal history of antineoplastic chemotherapy; Z23 Encounter for immunization; Z79.899 Other long term (current) drug therapy
CPT/HCPCS: 36415; 36591; 80053; 85025; 86301; 90471; 90732

== ENCOUNTER 2017-11-03 10:47 | Outpatient (RCR) | payer MEDICARE ==
[~2017-11-03 10:47] MED LIST changes: -FLU TRIvalent (5 YOA+) 2017-18 (AFLURIA) 0.5 ML IM ONE; -PNEUMOCOCCAL VACCINE 25 MCG/0.5 ML VIAL IM ONE
[2017-11-03 11:13] LABS: BASOPHILS # (AUTO) 0.1 10^3/uL (0.0-0.1); BASOPHILS % (AUTO) 1 % (0-10); EOSINOPHILS # (AUTO) 0.4 10^3/uL (0.0-0.3); EOSINOPHILS % (AUTO) 4 % (0-10); HEMATOCRIT 35 % (35-52); HEMOGLOBIN 11.6 G/DL (11.5-16.0); LYMPHOCYTES # (AUTO) 2.9 X 10^3 (1.0-4.0); LYMPHOCYTES % (AUTO) 33 % (12-44); MEAN CORPUSCULAR HEMOGLOBIN 30 PG (25-34); MEAN CORPUSCULAR HGB CONC 33 G/DL (32-36); MEAN CORPUSCULAR VOLUME 89 FL (80-99); MEAN PLATELET VOLUME 10.2 FL (7.4-10.4); MONOCYTES # (AUTO) 0.9 X 10^3 (0.0-1.0); MONOCYTES % (AUTO) 11 % (0-12); NEUTROPHILS # (AUTO) 4.6 X 10^3 (1.8-7.8); NEUTROPHILS % (AUTO) 52 % (42-75); PLATELET COUNT 255 10^3/uL (130-400); RED BLOOD COUNT 3.88 10^6/uL (4.35-5.85); WHITE BLOOD COUNT 8.9 10^3/uL (4.3-11.0)
[2017-11-03 11:44] LABS: ALANINE AMINOTRANSFERASE 9 U/L (0-55); ALBUMIN 3.2 GM/DL (3.2-4.5); ALKALINE PHOSPHATASE 88 U/L (40-136); BUN/CREATININE RATIO 17; CALCIUM 8.8 MG/DL (8.5-10.1); CARBON DIOXIDE 27 MMOL/L (21-32); CHLORIDE 99 MMOL/L (98-107); CREATININE SERUM 0.84 MG/DL (0.60-1.30); GFR ESTIMATED > 60; GLUCOSE 101 MG/DL (70-105); POTASSIUM 4.2 MMOL/L (3.6-5.0); SODIUM 135 MMOL/L (135-145); TOTAL PROTEIN 7.2 GM/DL (6.4-8.2)
[2017-11-29] MEDS ORDERED: SUCR1ORA5 PO (15:43)
[2017-11-29] MEDS ORDERED: FAMO-119 PO (15:43)
[2017-11-29] MEDS ORDERED: NITR-65 PO (18:04)
[2017-12-06] MEDS ORDERED: LISI40TA PO (15:29)
[2017-12-06] MEDS ORDERED: FAMO20TA3 PO (15:29)
[2017-12-06] MEDS ORDERED: METO100T12 PO (15:30)
[2017-12-06] MEDS ORDERED: METO50TA15 PO (15:30)
[2017-12-06] MEDS ORDERED: OMEP20TA33 PO (15:38)
[2017-12-06] MEDS ORDERED: NITR-65 PO (15:38)
[2017-12-06] MEDS ORDERED: SUCR1TAB36 PO (15:38)
[2017-12-06] MEDS ORDERED: MORP-34 PO (15:38)
[2017-12-06] MEDS ORDERED: OXYC-529 PO (15:38)
[2017-12-06] MEDS ORDERED: CALC300T4 PO (15:42)
[2017-12-09] MEDS ORDERED: MORP-34 PO (08:56)
== END 2018-02-01 | disposition home or self-care (01) ==
LOC: ONC 10:47
PROVIDERS: ATTEND Internal Medicine Hematology & Oncology
DX: C25.0 Malignant neoplasm of head of pancreas (principal); C77.1 Secondary and unspecified malignant neoplasm of intrathoracic lymph nodes; D64.9 Anemia, unspecified; I25.10 Atherosclerotic heart disease of native coronary artery without angina pectoris; I10 Essential (primary) hypertension; M81.0 Age-related osteoporosis without current pathological fracture; R91.1 Solitary pulmonary nodule; K21.9 Gastro-esophageal reflux disease without esophagitis; Z92.21 Personal history of antineoplastic chemotherapy; Z79.899 Other long term (current) drug therapy
CPT/HCPCS: 36591; 80053; 85025; 86301

== ENCOUNTER 2017-11-29 13:49 | Emergency (ER) | payer MEDICARE ==
[~2017-11-29] VITALS: Ht 175.3 cm; Wt 61.6 kg
[2017-11-29] MEDS ORDERED: FAMOTIDINE 20MG/2ML IV (PEPCID) IV STA (13:56)
[2017-11-29] MEDS ORDERED: NS IV 1000 ML 1,000 ML IV ONE (13:56)
[2017-11-29] MEDS ORDERED: LIDOCAINE 2% VISCOUS 15 ML UDC PO ONE (14:00)
[2017-11-29] MEDS ORDERED: ANTACID SUSP 30 ML UDC (MYLANTA) PO ONE (14:00)
[2017-11-29] MEDS ORDERED: ONDANSETRON 4 MG/2 ML (SDV) Z0FRAN IVP ONE (14:00)
--- OUTSIDE RECORDS SUMMARY | 2017-11-29 14:03 | XMS REPORT | Continuity of Care Document ---
Author Author [facility] Organization [facility] Address Unknown Phone Unavailable Allergies Active Description Code Type Severity Reaction Onset Reported/Identified Relationship to Patient Clinical Status Yes codeine [id number] Drug Allergy Mild NAUSEA 07/30/2008 Yes morphine [id number] Drug Allergy Mild NAUSEA 07/30/2008 Yes meperidine [id number] Drug Allergy Mild N/V 01/17/2010 Medications There is no data. 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 10/14/1614 JOSE WESTON MD, Ot D64.9 ANEMIA, UNSPECIFIED 10/14/1614 JOSE WESTON MD Ot I10 ESSENTIAL (PRIMARY) HYPERTENSION 10/14/1614 JOSE WESTON MD, Ot I25.10 ATHSCL HEART DISEASE OF [place] CORONARY 10/14/1614 JOSE WESTON MD Ot K21.9 GASTRO-ESOPHAGEAL REFLUX DISEASE WITHOUT 10/14/1614 JOSE WESTON MD Ot M81.0 AGE-RELATED OSTEOPOROSIS W/O CURRENT PAT 10/14/1614 JOSE WESTON MD, Ot R91.1 SOLITARY PULMONARY NODULE 10/14/1614 JOSE WESTON MD, Ot Z23 ENCOUNTER FOR IMMUNIZATION 10/14/1614 JOSE WESTON MD Ot Z79.899 OTHER ALF (CURRENT) DRUG THERAPY 10/14/1614 TRISTA MD, GARCIA Ot Z92.21 PERSONAL HISTORY OF ANTINEOPLASTIC CHEMO 02/24/2011 Ot 250.00 02/24/2011 Ot 401.9 02/24/2011 [...] 285.9 ANEMIA NOS 11/28/2011 Ot 440.20 ATHEROSCLEROSIS [place]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 11/28/2011 Ot 440.4 CHRONIC TOTAL OCCLUSION OF ARTERY OF THE 11/28/2011 Ot 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 11/28/2011 Ot 782.1 NONSPECIF SKIN ERUPT NEC 11/28/2011 Ot 996.62 INFECT INFLAM REACT DUE TO OTH VASC DE 11/28/2011 Ot 996.74 OTH COMPL DUE TO OT VASCULAR DEVICE,IMP 11/28/2011 Ot 998.12 HEMATOMA COMPLIC A PROC 10/04/2014 KENNETH LAZO, INGRID Mckeon Ot 401.9 HYPERTENSION NOS 10/04/2014 INGRID COOPER MD Ot 440.21 ATHEROSCL [place] ARTER EXTREM W INTERMIT 10/04/2014 INGRID COOPER [...] 11/27/2014 Ot V12.59 11/27/2014 Ot V15.82 11/27/2014 YANETH LAZO, JENNIFER Hernandez Ot V76.12 12/12/2014 YANETH LAZO, JENNIFER Hernandez Ot 401.9 HYPERTENSION NOS 12/12/2014 YANETH LAZO, JENNIFER Hernandez Ot 577.9 PANCREATIC DISEASE NOS 12/12/2014 YANETH LAZO, JENNIFER Hernandez Ot V12.55 PERSONAL HISTORY OF PULMONARY EMBOLISM 12/12/2014 YANETH LAZO, JENNIFER Hernandez Ot V58.69 OTH MED,LT,CURRENT USE 12/18/2014 XIN PATE Ot 157.9 12/21/2014 KENNETH LAZO, INGRID Mckeon Ot 157.9 MALIG LEX PANCREAS NOS 12/25/2014 YANETH LAZO, JENNIFER Hernandez Ot 577.9 12/25/2014 XIN PATE Ot 157.9 12/27/2014 YANETH LAZO, JENNIFER Hernandez Ot 272.4 12/27/2014 YANETH LAZO, JENNIFER Hernandez Ot 414.01 12/27/2014 YANETH LAZO, JENNIFER Hernandez Ot 786.50 12/27/2014 YANETH LAZO, JENNIFER Hernandez Ot 789.00 12/27/2014 JENNIFER WOLFE MD Ot 793.11 12/28/2014 ZAYRA ELIZONDO MD Ot 157.9 MALIG LEX PANCREAS NOS 12/28/2014 ZAYRA ELIZONDO MD Ot 785.1 PALPITATIONS 12/28/2014 ZAYRA ELIZONDO MD Ot 786.50 CHEST PAIN NOS 12/28/2014 ZAYRA ELIZONDO MD Ot V58.69 OTH MED,LT,CURRENT USE 01/03/2015 YANETH LAZO, JENNIFER Hernandez Ot 577.9 01/10/2015 XIN PATE Ot 157.9 02/05/2015 Ot 288.60 02/05/2015 Ot 780.60 02/11/2015 Ot 288.60 02/11/2015 Ot 780.60 02/19/2015 HERLINDA, BOBAN N Ot 157.9 03/14/2015 HERLINDA, BOBAN N Ot 157.9 MALIG LEX PANCREAS NOS 03/14/2015 HERLINDAMARILU BRAUNAN N Ot V58.11 ENCOUNTER FOR ANTINEOPLASTIC CHEMOTHERAP 03/15/2015 HERLINDA, BOBAN N Ot 157.9 03/18/2015 HERLINDA, BOBAN N Ot 157.9 03/18/2015 HERLINDA, BOBAN N Ot 157.9 03/19/2015 HERLINDA, BOBAN N Ot 157.9 03/19/2015 FARRIS HILAH S SPRING BENDER Ot 157.0 03/19/2015 FARRIS HILAH S SPRING BENDER Ot 196.9 03/19/2015 FARRIS, HILAH S SPRING BENDER Ot 285.9 03/19/2015 FARRIS HILAH S SPRING BENDER Ot V58.69 05/08/2015 FARRIS HILAH S SPRING BENDER Ot 157.0 05/08/2015 FARRIS, HILAH S SPRING BENDER Ot 196.9 05/08/2015 FARRIS, HILAH S SPRING BENDER Ot 285.9 05/08/2015 FARRIS, HILAH S SPRING BENDER Ot V58.69 05/10/2015 FARRIS, HILAH S SPRING BENDER Ot 157.0 05/10/2015 FARRIS, HILAH S SPRING BENDER Ot 196.9 05/10/2015 FARRIS, HILAH S SPRING BENDER Ot 285.9 05/10/2015 FARRIS HILAH S SPRING BENDER Ot V58.69 05/22/2015 HERLINDA, BOBAN N Ot 157.0 05/22/2015 HERLINDA, BOBAN N Ot 196.9 05/22/2015 HERLINDA, BOBAN N Ot 285.9 05/22/2015 HERLINDA, BOBAN N Ot V58.11 05/22/2015 HERLINDA, BOBAN N Ot V58.69 05/22/2015 FARRIS, HILAH S SPRING BENDER Ot 157.9 05/23/2015 HERLINDA, BOBAN N Ot 157.0 05/23/2015 HERLINDA, BOBAN N Ot 196.9 05/23/2015 HERLINDA, BOBAN N Ot 285.9 05/23/2015 HERLINDA, BOBAN N Ot V58.11 05/23/2015 HERLINDA, BOBAN N Ot V58.69 05/23/2015 MORENITA FARRIS SPRING BENDER Ot 157.9 06/16/2015 HERLINDA, BOBAN N Ot [...] 06/19/2015 MESSI LAZO, ROBERT Ot 157.0 06/19/2015 MESSI LAZO, ROBERT Ot 196.9 06/19/2015 MESSI LAZO, ROBERT Ot 285.9 06/19/2015 MESSI LAZO, ROBERT Ot V58.69 06/25/2015 HERLINDA, BOBAN N Ot 157.0 06/25/2015 HERLINDA, BOBAN N Ot 196.9 06/25/2015 HERLINDA, BOBAN N Ot 285.9 06/25/2015 HERLINDA, BOBAN N Ot V58.11 06/25/2015 HERLINDA, BOBAN N Ot V58.69 06/26/2015 HERLINDA, BOBAN N Ot 157.0 06/26/2015 HERLINDA, BOBAN N Ot 196.9 06/26/2015 HERLINDA, BOBAN N Ot 285.9 06/26/2015 HERLINDA, BOBAN N Ot V58.11 06/26/2015 HERLINDA, BOBAN N Ot V58.69 07/03/2015 MORENITA FARRIS SPRING BENDER Ot 157.0 07/03/2015 MORENITA FARRIS SPRING BENDER Ot 196.9 07/03/2015 MORENITA FARRIS SPRING BENDER Ot 285.9 07/03/2015 MORENITA FARRIS SPRING BENDER Ot V58.69 07/03/2015 FARRIS, MORENITA S SPRING BENDER Ot 157.0 07/03/2015 FARRIS, MORENITA S SPRING BENDER Ot 196.9 07/03/2015 FARRIS, HILAH S SPRING BENDER Ot 285.9 07/03/2015 FARRIS, MORENITA S SPRING BENDER Ot V58.69 07/08/2015 MESSI LAZO, ROBERT Ot 157.0 07/08/2015 MESSI LAZO, ROBERT Ot 196.9 07/08/2015 MESSI LAZO, ROBERT Ot 285.9 07/08/2015 MESSI LAZO, ROBERT Ot V58.69 07/16/2015 HERLINDA, BOBAN N Ot 157.0 07/16/2015 HERLINDA, BOBAN N Ot 196.9 07/16/2015 HERLINDA, BOBAN N Ot 285.9 07/16/2015 HERLINDA, BOBAN N Ot V58.11 07/16/2015 HERLINDA, BOBAN N Ot V58.69 07/16/2015 FARRIS, MORENITA S SPRING BENDER Ot 157.0 07/16/2015 FARRIS, MORENITA S SPRING BENDER Ot 196.9 07/16/2015 FARRIS, MORENITA S SPRING BENDER Ot 285.9 07/16/2015 FARRIS, MORENITA S SPRING BENDER Ot V58.69 07/25/2015 FARRIS, MORENITA S SPRING BENDER Ot 157.0 07/25/2015 FARRIS, HILAH S SPRING BENDER Ot 196.9 07/25/2015 FARRIS, GERAAH S SPRING BENDER Ot 285.9 07/25/2015 FARRIS, MORENITA S SPRING BENDER Ot V58.69 08/06/2015 HERLINDA, BOBAN N Ot 157.0 08/06/2015 HERLINDA, BOBAN N Ot 196.9 08/06/2015 HERLINDA, BOBAN N Ot 285.9 08/06/2015 HERLINDA, BOBAN N Ot V58.11 08/06/2015 HERLINDA, BOBAN N Ot V58.69 08/06/2015 FARRIS, GERAAH S SPRING BENDER Ot 157.0 08/06/2015 FARRIS, HILAH S SPRING BENDER Ot 196.9 08/06/2015 FARRIS, HILAH S SPRING BENDER Ot 285.9 08/06/2015 FARRIS, HILAH S SPRING BENDER Ot V58.69 08/14/2015 HERLINDA, BOBAN N Ot 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 PANCREAS HEAD 08/14/2015 HERLINDA, XIN N Ot 196.9 MAL LEX LYMPH NODE NOS 08/14/2015 HERLINDAXIN N Ot 285.9 ANEMIA NOS 08/14/2015 HERLINDA XIN N Ot V58.11 ENCOUNTER FOR ANTINEOPLASTIC CHEMOTHERAP 08/14/2015 XIN PATE N Ot V58.69 OT MED,LT,CURRENT USE 08/14/2015 MORENITA FARRIS S SPRING BENDER Ot 157.0 08/14/2015 FARRISMORENITA Mckeon S SPRING BENDER Ot 196.9 08/14/2015 FARRISMORENITA Mckeon S SPRING BENDER Ot 285.9 08/14/2015 MORENITA FARRIS S SPRING BENDER Ot V58.69 08/19/2015 XIN PATE N Ot 157.0 08/19/2015 HERLINDAXIN N Ot 196.9 08/19/2015 HERLINDAXIN N Ot 285.9 08/19/2015 HERLINDAXIN N Ot V58.11 08/19/2015 HERLINDAXIN BRAUN N Ot V58.69 08/21/2015 MORENITA FARRIS S SPRING BENDER Ot 157.9 09/02/2015 MORENITA FARRIS S SPRING BENDER Ot 157.9 09/10/2015 HERLINDAXIN BRAUN N Ot 157.0 09/10/2015 HERLINDAXIN BRAUN N Ot 196.9 09/10/2015 HERLINDAXIN N Ot 285.9 09/10/2015 HERLINDAMARILUAN N Ot V58.11 09/10/2015 HERLINDAMARILUAN N Ot V58.69 09/11/2015 MORENITA FARRIS S SPRING BENDER Ot C25.0 09/11/2015 MORENITA FARRIS S SPRING BENDER Ot G56.91 09/11/2015 MORENITA FARRIS S SPRING BENDER Ot Z79.899 09/17/2015 FARRISMORENITA S SPRING BENDER Ot C25.0 09/17/2015 MORENITA FARRIS S SPRING BENDER Ot G56.91 09/17/2015 MORENITA FARRIS S SPRING BENDER Ot Z79.899 10/01/2015 HERLINDAXIN BRAUN N Ot 157.0 10/01/2015 HERLINDA, BOBAN N Ot 196.9 10/01/2015 XIN PATE N Ot 285.9 10/01/2015 HERLINDAXIN BRAUN N Ot V58.11 10/01/2015 HERLINDAXIN BRAUN N Ot V58.69 10/02/2015 MORENITA FARRIS S SPRING BENDER Ot C25.0 10/02/2015 KALEIGH MORENITA S SPRING BENDER Ot Z79.899 10/15/2015 FARRIS GERAAH S SPRING BENDER Ot C25.0 10/15/2015 FARRIS HILAH S SPRING BENDER Ot Z79.899 10/23/2015 FARRIS HILAH S SPRING BENDER Ot C25.0 10/23/2015 FARRIS HILAH S SPRING BENDER Ot Z79.899 10/31/2015 FARRIS MORENITA S SPRING BENDER Ot C25.0 10/31/2015 KALEIGH MORENITA S SPRING BENDER Ot Z79.899 11/02/2015 XIN PATE N Ot 157.0 11/02/2015 HERLINDAXIN BRAUN N Ot 196.9 11/02/2015 HERLINDAXIN BRAUN N Ot 285.9 11/02/2015 HERLINDAXIN BRAUN N Ot V58.11 11/02/2015 HERLINDAXIN BRAUN N Ot V58.69 11/12/2015 HERLINDAXIN BRAUN N Ot C25.0 11/12/2015 XIN PATE N Ot C77.9 11/12/2015 HERLINDAXIN BRAUN N Ot D64.9 11/12/2015 HERLINDAXIN BRAUN N Ot Z51.11 11/12/2015 XIN PATE N Ot Z79.899 11/18/2015 XIN PATE N Ot C25.0 MALIGNANT NEOPLASM OF HEAD OF PANCREAS 11/18/2015 XIN PATE N Ot 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 11/18/2015 XIN PATE N Ot D64.9 ANEMIA, UNSPECIFIED 11/18/2015 HERLINDAMARILUANGELICA N Ot Z51.11 ENCOUNTER FOR ANTINEOPLASTIC CHEMOTHERAP 11/18/2015 XIN PATE N Ot Z79.899 OTHER ALF (CURRENT) DRUG THERAPY 12/05/2015 MORENITA FARRIS S SPRING BENDER Ot C25.0 12/05/2015 MORENITA FARRIS S SPRING BENDER Ot C77.9 12/05/2015 MORENITA FARRIS S SPRING BENDER Ot D70.1 12/05/2015 KALEIGHMORENITA SPRING BENDER Ot T45.1X5A 12/05/2015 FARRISMORENITA Mckeon SPRING BENDER Ot Z79.899 12/12/2015 FARRISMORENITA Mckeon SPRING BENDER Ot C25.0 12/12/2015 KALEIGH MORENITA Mckeon SPRING BENDER Ot C77.9 12/12/2015 KALEIGH MORENITA Mckeon SPRING BENDER Ot D70.1 12/12/2015 KALEIGHMORENITA SPRING BENDER Ot T45.1X5A 12/12/2015 KALEIGHMORENITA SPRING BENDER Ot Z79.899 12/13/2015 ZAYRA ELIZONDO MD Ot 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, UNSPECIF 12/13/2015 ZAYRA ELIZONDO MD Ot J90 PLEURAL EFFUSION, 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 12/13/2015 ZAYRA ELIZONDO MD Ot J98.11 ATELECTASIS 12/13/2015 ZAYRA ELIZONDO MD Ot Z79.899 OTHER ALF (CURRENT) DRUG THERAPY 12/15/2015 ZAYRA ELIZONDO MD Ot 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, UNSPECIF 12/15/2015 ZAYRA ELIZONDO MD Ot R20.0 ANESTHESIA OF SKIN 12/15/2015 ZAYRA ELIZONDO MD Ot R20.2 PARESTHESIA OF SKIN 12/15/2015 ZAYRA ELIZONDO MD Ot R51 HEADACHE 12/15/2015 ZAYRA ELIZONDO MD Ot 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 12/17/2015 KALEIGHMORENITA SPRING BENDER Ot C25.0 12/26/2015 KALEIGH MORENITA Mckeon SPRING BENDER Ot C25.0 12/26/2015 KALEIGH MORENITA Mckeon SPRING BENDER Ot C25.0 12/26/2015 KALEIGH MORENITA Mckeon SPRING BENDER Ot C77.9 12/26/2015 KALEIGH MORENITA Mckeon SPRING BENDER Ot I10 12/26/2015 KALEIGH MORENITA Mckeon SPRING BENDER Ot Z79.899 01/02/2016 KALEIGH MORENITA Mckeon SPRING BENDER Ot C25.0 01/02/2016 KALEIGH MORENITA Mckeon SPRING BENDER Ot C77.9 01/02/2016 KALEIGH HILAH S SPRING BENDER Ot I10 01/02/2016 MORENITA FARRIS S SPRING BENDER Ot Z79.899 01/09/2016 XIN APTE N Ot C25.0 01/09/2016 XIN PATE N Ot C77.9 01/09/2016 XIN PATE N Ot D64.9 01/09/2016 XIN PATE N Ot Z51.11 01/09/2016 XIN PATE N Ot Z79.899 01/10/2016 YANETH LAZO, JENNIFER Hernandez Ot R31.9 01/16/2016 JENNIFER WOLFE MD Ot R31.9 01/29/2016 FARRISMORENITA Mckeon S SPRING BENDER Ot C25.0 01/29/2016 KALEIGH MORENITA S SPRING BENDER Ot C77.9 01/29/2016 FARRISMORENITA Mckeon S SPRING BENDER Ot I10 01/29/2016 KALEIGHMORENITA S SPRING BENDER Ot R74.8 01/29/2016 KALEGIH MORENITA S SPRING BENDER Ot Z79.899 01/29/2016 KALEIGHMORENITA S SPRING BENDER Ot C25.0 02/03/2016 FARRISMORENITA Mckeon S SPRING BENDER Ot C25.0 02/06/2016 DONIREENAANCELMO L SPRING BENDER Ot I10 02/06/2016 ANCELMO MARION SPRING BENDER Ot I25.10 02/06/2016 ANCELMO MARION L SPRING BENDER Ot I65.23 02/06/2016 ANCELMO MARION L SPRING BENDER Ot I70.213 02/06/2016 ANCELMO MARION SPRING BENDER Ot R00.2 02/11/2016 XIN PATE N Ot C25.0 02/11/2016 XIN PATE N Ot C77.9 02/11/2016 HERLINDAXIN BRAUN N Ot D64.9 02/11/2016 XIN PATE N Ot Z79.899 02/11/2016 ANCELMO MARION L SPRING BENDER Ot I10 02/11/2016 ANCELMO MARION L SPRING BENDER Ot I25.10 02/11/2016 ANCELMO MARION L SPRING BENDER Ot I65.23 02/11/2016 ANCELMO MARION L SPRING BENDER Ot I70.213 02/11/2016 ANCELMO MARION L SPRING BENDER Ot R00.2 02/12/2016 LOREANCELMO CONROY L SPRING BENDER Ot I10 02/12/2016 BAIANCELMO CONROY L SPRING BENDER Ot I25.10 02/12/2016 BAIANCELMO CONROY L SPRING BENDER Ot I65.23 02/12/2016 BAIANCELMO CONROY L SPRING BENDER Ot I70.213 02/12/2016 BAIANCELMO CONROY L SPRING BENDER Ot R00.2 02/17/2016 XIN PATE N Ot C25.0 MALIGNANT NEOPLASM OF HEAD OF PANCREAS 02/17/2016 HERLINDAXIN N Ot 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 02/17/2016 HERLINDA MARILUANGELICA N Ot D64.9 ANEMIA, UNSPECIFIED 02/17/2016 HERLINDA XIN N Ot 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 02/18/2016 HERLINDAXIN N Ot C25.0 02/18/2016 HERLINDAXIN N Ot C77.9 02/18/2016 HERLINDAXIN BRAUN N Ot D64.9 02/18/2016 HERLINDAXIN BRAUN N Ot Z79.899 02/18/2016 MORENITA FARRIS SPRING BENDER Ot C25.0 02/18/2016 MORENITA FARRIS S SPRING BENDER Ot C77.9 02/18/2016 MORENITA FARRIS S SPRING BENDER Ot I10 02/18/2016 MORENITA FARRIS S SPRING BENDER Ot R74.8 02/18/2016 MORENITA FARRIS S SPRING BENDER Ot Z79.899 02/19/2016 LOREANCELMO CONROY L SPRING BENDER Ot I10 02/19/2016 BAIANCELMO CONROY L SPRING BENDER Ot I25.10 02/19/2016 BAIANCELMO CONROY L SPRING BENDER Ot I65.23 02/19/2016 BAIANCELMO CONROY L SPRING BENDER Ot I70.213 02/19/2016 BAIANCELMO CONROY L SPRING BENDER Ot R00.2 02/19/2016 XIN PATE N Ot C25.0 02/19/2016 XIN PATE N Ot C77.9 02/19/2016 HERLINDAXIN BRAUN N Ot D64.9 02/19/2016 HERLINDA XIN N Ot Z79.899 02/20/2016 MORENITA FARRIS S SPRING BENDER Ot C25.0 02/26/2016 FARRISMORENITA Mckeon SPRING BENDER Ot C25.0 02/26/2016 FARRISMORENITA Mckeon SPRING BENDER Ot C77.9 02/26/2016 FARRISMORENITA Mckeon S SPRING BENDER Ot I10 02/26/2016 FARRISMORENITA Mckeon S SPRING BENDER Ot R74.8 02/26/2016 FARRISMORENITA Mckeon S SPRING BENDER Ot Z79.899 02/26/2016 FARRISMORENITA Mckeon S SPRING BENDER Ot C25.0 02/26/2016 FARRISMORENITA Mckeon S SPRING BENDER Ot C77.9 02/26/2016 FARRISMORENITA Mckeon S SPRING BENDER Ot I10 02/26/2016 FARRISMORENITA Mckeon S SPRING BENDER Ot R74.8 02/26/2016 FARRISMORENITA Mckeon S SPRING BENDER Ot Z79.899 02/26/2016 FARRISMORENITA Mckeon S SPRING BENDER Ot C25.0 03/04/2016 FARRISMORENITA Mckeon S SPRING BENDER Ot C25.0 MALIGNANT NEOPLASM OF HEAD OF PANCREAS 03/04/2016 FARRIS MORENITA Mckeon SPRING BENDER Ot 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 03/04/2016 FARRISMORENITA Mckeon SPRING BENDER Ot I10 ESSENTIAL (PRIMARY) HYPERTENSION 03/04/2016 FARRISMORENITA Mckeon SPRING BENDER Ot R74.8 ABNORMAL LEVELS OF OTHER SERUM ENZYMES 03/04/2016 MORENITA FARRIS S SPRING BENDER Ot Z79.899 OTHER ALF (CURRENT) DRUG THERAPY 04/02/2016 MORENITA FARRIS SPRING BENDER Ot C25.0 MALIGNANT NEOPLASM OF HEAD OF PANCREAS 04/02/2016 FARRISMORENITA Mckeon SPRING BENDER Ot 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 04/02/2016 FARRISMORENITA Mckeon SPRING BENDER Ot D64.9 ANEMIA, UNSPECIFIED 04/02/2016 FARRISMORENITA Mckeon S SPRING BENDER Ot I10 ESSENTIAL (PRIMARY) HYPERTENSION 04/02/2016 FARRISMORENITA Mckeon S SPRING BENDER Ot Z79.899 OTHER ALF (CURRENT) DRUG THERAPY 04/06/2016 XIN PATE N Ot C25.0 MALIGNANT NEOPLASM OF HEAD OF PANCREAS 04/06/2016 XIN PATE Ot 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 04/06/2016 XIN PATE N Ot D64.9 ANEMIA, UNSPECIFIED 04/06/2016 XIN PATE Ot Z51.11 ENCOUNTER FOR ANTINEOPLASTIC CHEMOTHERAP 04/06/2016 XIN PATE Ot 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 04/15/2016 XIN PATE Ot C25.0 MALIGNANT NEOPLASM OF HEAD OF PANCREAS 04/15/2016 XIN PATE Ot C77.9 SECONDARY AND UNSP MALIGNANT NEOPLASM OF 04/15/2016 XIN PATE Ot D64.9 ANEMIA, UNSPECIFIED 04/15/2016 XIN PATE Ot Z51.11 ENCOUNTER FOR ANTINEOPLASTIC CHEMOTHERAP 04/15/2016 XIN PATE Ot 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 04/23/2016 MORENITA FARRIS S SPRING BENDER Ot C25.0 MALIGNANT NEOPLASM OF HEAD OF PANCREAS 04/23/2016 MORENITA FARRIS SPRING BENDER Ot C77.9 SECONDARY AND UNSP MALIGNANT NEOPLASM OF 04/23/2016 MORENITA FARRIS S SPRING BENDER Ot D64.9 ANEMIA, UNSPECIFIED 04/23/2016 MORENITA FARRIS S SPRING BENDER Ot I10 ESSENTIAL (PRIMARY) HYPERTENSION 04/23/2016 MORENITA FARRIS S SPRING BENDER Ot 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 04/23/2016 MORENITA FARRIS S SPRING BENDER Ot C25.0 MALIGNANT NEOPLASM OF HEAD OF PANCREAS 04/24/2016 MORENITA FARRIS S SPRING BENDER Ot C25.0 MALIGNANT NEOPLASM OF HEAD OF PANCREAS 04/24/2016 MORENITA FARRIS SPRING BENDER Ot C77.9 SECONDARY AND UNSP MALIGNANT NEOPLASM OF 04/24/2016 MORENITA FARRIS S SPRING BENDER Ot D64.9 ANEMIA, UNSPECIFIED 04/24/2016 MORENITA FARRIS S SPRING BENDER Ot I10 ESSENTIAL (PRIMARY) HYPERTENSION 04/24/2016 MORENITA FARRIS S SPRING BENDER Ot 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 05/12/2016 MORENITA FARRIS S SPRING BENDER Ot C25.0 MALIGNANT NEOPLASM OF HEAD OF PANCREAS 05/13/2016 MORENITA FARRIS S SPRING BENDER Ot C25.0 MALIGNANT NEOPLASM OF HEAD OF PANCREAS 05/13/2016 MORENITA FARRIS S SPRING BENDER Ot C77.9 SECONDARY AND UNSP MALIGNANT NEOPLASM OF 05/13/2016 MORENITA FARRIS SPRING BENDER Ot D64.9 ANEMIA, UNSPECIFIED 05/13/2016 MORENITA FARRIS SPRING BENDER Ot I10 ESSENTIAL (PRIMARY) HYPERTENSION 05/13/2016 MORENITA FARRIS SPRING BENDER Ot Z79.899 OTHER ALF (CURRENT) DRUG THERAPY 05/18/2016 HERLINDAXIN BRAUN N Ot C25.0 MALIGNANT NEOPLASM OF HEAD OF PANCREAS 05/18/2016 HERLINDAXIN BRAUN N Ot C77.9 SECONDARY AND UNSP MALIGNANT NEOPLASM OF 05/18/2016 XIN PATE N Ot D64.9 ANEMIA, UNSPECIFIED 05/18/2016 HERLINDAXIN BRAUN N Ot Z51.11 ENCOUNTER FOR ANTINEOPLASTIC CHEMOTHERAP 05/18/2016 XIN PATE N Ot 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 05/25/2016 XIN PATE N Ot C25.0 MALIGNANT NEOPLASM OF HEAD OF PANCREAS 05/25/2016 XIN PATE N Ot C77.9 SECONDARY AND UNSP MALIGNANT NEOPLASM OF 05/25/2016 XIN PATE N Ot D64.9 ANEMIA, UNSPECIFIED 05/25/2016 XIN PATE N Ot Z51.11 ENCOUNTER FOR ANTINEOPLASTIC CHEMOTHERAP 05/25/2016 XIN PATE N Ot 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 05/25/2016 MORENITA FARRIS SPRING BENDER Ot C25.0 MALIGNANT NEOPLASM OF HEAD OF PANCREAS 05/30/2016 DINAH MELISSA Ot 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, UNSPECIF 05/30/2016 DINAH MELISSA Ot E80.6 OTHER DISORDERS OF BILIRUBIN METABOLISM 05/30/2016 DINAH MELISSA Ot K83.1 OBSTRUCTION OF BILE DUCT 05/30/2016 DINAH MELISSA Ot R10.31 RIGHT LOWER QUADRANT PAIN 06/01/2016 DINAH MELISSA Ot 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, UNSPECIF 06/01/2016 DINAH MELISSA Ot E80.6 OTHER DISORDERS OF BILIRUBIN METABOLISM 06/01/2016 DINAH MELISSA Ot K83.1 OBSTRUCTION OF BILE DUCT 06/01/2016 DINAH MELISSA Ot R10.31 RIGHT LOWER QUADRANT PAIN 06/26/2016 XIN PATE N Ot C25.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 06/26/2016 XIN PATE N Ot 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 06/26/2016 XIN PATE N Ot D64.9 ANEMIA, UNSPECIFIED 06/26/2016 XIN PATE N Ot Z51.11 ENCOUNTER FOR ANTINEOPLASTIC CHEMOTHERAP 06/26/2016 XIN PATE N Ot 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 07/16/2016 Ot 998.59 07/16/2016 XIN PATE N Ot C25.0 MALIGNANT NEOPLASM OF HEAD OF PANCREAS 07/16/2016 HERLINDAXIN N Ot C77.9 SECONDARY AND UNSP MALIGNANT NEOPLASM OF 07/16/2016 XIN PATE N Ot D64.9 ANEMIA, UNSPECIFIED 07/16/2016 HERLINDAXIN N Ot 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 07/23/2016 HERLINDAXIN BRAUN N Ot C25.0 MALIGNANT NEOPLASM OF HEAD OF PANCREAS 07/23/2016 HERLINDAXIN N Ot C77.9 SECONDARY AND UNSP MALIGNANT NEOPLASM OF 07/23/2016 HERLINDAXIN N Ot D64.9 ANEMIA, UNSPECIFIED 07/23/2016 HERLINDAXIN N Ot 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 08/21/2016 HERLINDAXIN BRAUN N Ot C25.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 08/21/2016 HERLINDAXIN N Ot C77.9 SECONDARY AND UNSP MALIGNANT NEOPLASM OF 08/21/2016 HERLINDAXIN N Ot D64.9 ANEMIA, UNSPECIFIED 08/21/2016 HERLINDAXIN N Ot 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 08/28/2016 HERLINDAXIN N Ot C25.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 08/28/2016 HERLINDAXIN N Ot 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 08/28/2016 HERLINDAXIN N Ot D64.9 ANEMIA, UNSPECIFIED 08/28/2016 XIN PATE N Ot Z23 ENCOUNTER FOR IMMUNIZATION 08/28/2016 HERLINDAXIN N Ot Z79.899 OTHER ALF (CURRENT) DRUG THERAPY 09/24/2016 Ot 401.9 HYPERTENSION NOS 09/24/2016 Ot 785.1 PALPITATIONS 09/24/2016 Ot V12.59 HX- CIRCULATORY SYST DIS,NEC 09/24/2016 Ot V15.82 HISTORY OF TOBACCO USE 09/24/2016 YANETH LAZO, JENNIFER Hernandez Ot V76.12 OTH SCREEN MAMMO-MALIGN NEOPLASM OF [place] 09/24/2016 YANETH LAZO, JENNIFER Hernandez Ot 272.4 HYPERLIPIDEMIA NEC/NOS 09/24/2016 YANETH LAZO, JENNIFER Hernandez Ot 414.01 CORONARY ATHEROSCLEROSIS OF [place] CORON 09/24/2016 YANETH LAZO, JENNIFER Hernandez Ot 786.50 CHEST PAIN NOS 09/24/2016 YANETH LAZO, JENNIFER Hernandez Ot 789.00 ABDOMINAL PAIN, UNSPECIFIED SITE 09/24/2016 YANETH LAZO, JENNIFER Hernandez Ot 793.11 SOLITARY PULMONARY NODULE 09/24/2016 YANETH LAZO, JENNIFER Hernandez Ot 577.9 PANCREATIC DISEASE NOS 09/24/2016 YANETH LAZO, JENNIFER Hernandez Ot 577.9 PANCREATIC DISEASE NOS 09/24/2016 YANETH LAZO, JENNIFER Hernandez Ot 577.9 PANCREATIC DISEASE NOS 09/24/2016 KENNETH LAZO, INGRID Mckeon Ot 157.9 MALIG LEX PANCREAS NOS 09/24/2016 KENNETH LAZO, INGRID Mckeon Ot V72.84 EXAM PRE-OPERATIVE NOS 09/24/2016 MORENITA FARRIS SPRING BENDER Ot 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 PANCREAS HEAD 09/24/2016 MORENITA FARRIS SPRING BENDER Ot 196.9 MAL LEX LYMPH NODE NOS 09/24/2016 MORENITA FARRISP Ot V58.69 OTH MED,LT,CURRENT USE 09/24/2016 Ot 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 PANCREAS HEAD 09/24/2016 Ot 196.9 MAL LEX LYMPH NODE NOS 09/24/2016 Ot 285.9 ANEMIA NOS 09/24/2016 Ot 288.60 LEUKOCYTOSIS , UNSPECIFIED 09/24/2016 Ot 780.60 FEVER, UNSPECIFIED 09/24/2016 Ot 782.4 JAUNDICE NOS 09/24/2016 Ot V58.69 OTH MED,LT, CURRENT USE 09/24/2016 Ot 288.60 LEUKOCYTOSIS , UNSPECIFIED 09/24/2016 Ot 780.60 FEVER, UNSPECIFIED 09/24/2016 MORENITA FARRIS SPRING BENDER Ot 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 PANCREAS HEAD 09/24/2016 MORENITA FARRIS SPRING BENDER Ot 196.9 MAL LEX LYMPH NODE NOS 09/24/2016 MORENITA FARRIS S SPRING BENDER Ot 285.9 ANEMIA NOS 09/24/2016 MORENITA FARRIS S SPRING BENDER Ot V58.69 OTH MED,LT,CURRENT USE 09/24/2016 MORENITA FARRIS S SPRING BENDER Ot 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 PANCREAS HEAD 09/24/2016 MORENITA FARRIS S SPRING BENDER Ot 196.9 MAL LEX LYMPH NODE NOS 09/24/2016 FARRISMORENITA Mckeon S SPRING BENDER Ot 285.9 ANEMIA NOS 09/24/2016 MORENITA FARRIS S SPRING BENDER Ot V58.69 OTH MED,LT,CURRENT USE 09/24/2016 OMRENITA FARRIS S SPRING BENDER Ot 157.9 MALIG LEX PANCREAS NOS 09/24/2016 MESSI LAZO, ROBERT Ot 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 PANCREAS HEAD 09/24/2016 MESSI LAZO, ROBERT Ot 196.9 MAL LEX LYMPH NODE NOS 09/24/2016 MESSI LAZO, ROBERT Ot 285.9 ANEMIA NOS 09/24/2016 MESSI ALZO, ROBERT Ot V58.69 OTH MED,LT,CURRENT USE 09/24/2016 MORENITA FARRIS S SPRING BENDER Ot 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 PANCREAS HEAD 09/24/2016 MORENITA FARRIS S SPRING BENDER Ot 196.9 MAL LEX LYMPH NODE NOS 09/24/2016 MORENITA FARRIS S SPRING BENDER Ot 285.9 ANEMIA NOS 09/24/2016 MORENITA FARRIS S SPRING BENDER Ot V58.69 OTH MED,LT,CURRENT USE 09/24/2016 MORENITA FARRIS SPRING BENDER Ot 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 PANCREAS HEAD 09/24/2016 MORENITA FARRIS S SPRING BENDER Ot 196.9 MAL LEX LYMPH NODE NOS 09/24/2016 MORENITA FARRIS S SPRING BENDER Ot 285.9 ANEMIA NOS 09/24/2016 MORENITA FARRIS S SPRING BENDER Ot V58.69 OTH MED,LT,CURRENT USE 09/24/2016 MORENITA FARRIS S SPRING BENDER Ot 157.9 MALIG LEX PANCREAS NOS 09/24/2016 MORENITA FARRIS S SPRING BENDER Ot C25.0 MALIGNANT NEOPLASM OF HEAD OF PANCREAS 09/24/2016 MORENITA FARRIS [employer]ING [employer] Ot 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 09/24/2016 MORENITA FARRIS S SPRING [employer]ER Ot Z79.899 OTHER ALF (CURRENT) DRUG THERAPY 09/24/2016 MORENITA FARRIS SPRING [employer] Ot C25.0 MALIGNANT NEOPLASM OF HEAD OF PANCREAS 09/24/2016 FARRISMORENITA Mckeon SPRING [employer]ER Ot 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 09/24/2016 MORENITA FARRIS SPRING [employer]ER Ot C25.0 MALIGNANT NEOPLASM OF HEAD OF PANCREAS 09/24/2016 FARRISMORENITA Mckeon SPRING [employer]ER Ot Z79.899 OTHER ALF (CURRENT) DRUG THERAPY 09/24/2016 FARRISMORENITA Mckeon SPRING [employer]ER Ot C25.0 MALIGNANT NEOPLASM OF HEAD OF PANCREAS 09/24/2016 FARRISMORENITA Mckeon SPRING [employer]ER Ot 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 09/24/2016 FARRISMORENITA Mckeon SPRING [employer]ER Ot 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 09/24/2016 FARRISMORENITA Mckeon SPRING [employer]ER Ot T45.1X5A ADVERSE EFFECT OF ANTINEOPLASTIC AND IMM 09/24/2016 FARRISMORENITA Mckeon SPRING [employer]ER Ot Z79.899 OTHER ALF (CURRENT) DRUG THERAPY 09/24/2016 FARRISMORENITA Mckeon SPRING [employer]ER Ot C25.0 MALIGNANT NEOPLASM OF HEAD OF PANCREAS 09/24/2016 FARRISMORENITA Mckeon SPRING [employer]ER Ot C25.0 MALIGNANT NEOPLASM OF HEAD OF PANCREAS 09/24/2016 FARRISMORENITA Mckeon SPRING [employer]ER Ot 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 09/24/2016 FARRISMORENITA SPRING BENDER Ot I10 ESSENTIAL (PRIMARY) HYPERTENSION 09/24/2016 KALEIGH MORENITA Mckeon SPRING [employer] Ot 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 09/24/2016 YANETH LAZO, JENNIFER Hernandez Ot R31.9 HEMATURIA, UNSPECIFIED 09/24/2016 ANCELMO MARION SPRING [employer]ER Ot I10 ESSENTIAL (PRIMARY) HYPERTENSION 09/24/2016 ANCELMO MARION SPRING [employer]ER Ot I25.10 ATHSCL HEART DISEASE OF [place] CORONARY 09/24/2016 ANCELMO MARION SPRING [employer]ER Ot 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 09/24/2016 ANCELMO MARION SPRING [employer]ER Ot I70.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M W INTRMT 09/24/2016 ANCELMO MARION SPRING [employer]ER Ot R00.2 PALPITATIONS 09/24/2016 LOREANCELMO CONROY SPRING [employer]ER Ot I10 ESSENTIAL (PRIMARY) HYPERTENSION 09/24/2016 ANCELMO MARION SPRING [employer]ER Ot I25.10 ATHSCL HEART DISEASE OF [place] CORONARY 09/24/2016 ANCELMO MARION SPRING [employer]ER Ot 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 09/24/2016 ANCELMO MARION SPRING [employer]ER Ot I70.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M W INTRMT 09/24/2016 ANCELMO MARION SPRING [employer]ER Ot R00.2 PALPITATIONS 09/24/2016 MORENITA FARRIS SPRING B[employer]ER Ot C25.0 MALIGNANT NEOPLASM OF HEAD OF PANCREAS 09/24/2016 MORENITA FARRIS SPRING [employer]ER Ot 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 09/24/2016 MORENITA FARRIS S SPRING [employer]ER Ot I10 ESSENTIAL (PRIMARY) HYPERTENSION 09/24/2016 MORENITA FARRIS SPRING [employer]ER Ot R74.8 ABNORMAL LEVELS OF OTHER SERUM ENZYMES 09/24/2016 MORENITA FARRIS SPRING [employer]ER Ot 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 09/24/2016 MORENITA FARRIS SPRING [employer]ER Ot C25.0 MALIGNANT NEOPLASM OF HEAD OF PANCREAS 09/24/2016 MORENITA FARRIS S SPRING [employer]ER Ot C25.0 MALIGNANT NEOPLASM OF HEAD OF PANCREAS 09/24/2016 MORENITA FARRIS SPRING [employer]ER Ot 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 09/24/2016 MORENITA FARRIS SPRING [employer]ER Ot I10 ESSENTIAL (PRIMARY) HYPERTENSION 09/24/2016 MORENITA FARRIS S SPRING [employer]ER Ot R74.8 ABNORMAL LEVELS OF OTHER SERUM ENZYMES 09/24/2016 MORENITA FARRIS S SPRING B[employer]ER Ot 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 09/24/2016 MORENITA FARRIS S SPRING [employer]ER Ot C25.0 MALIGNANT NEOPLASM OF HEAD OF PANCREAS 09/24/2016 MORENITA FARRIS S SPRING [employer]ER Ot 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 09/24/2016 MORENITA FARRIS SPRING [employer]ER Ot D64.9 ANEMIA, UNSPECIFIED 09/24/2016 MORENITA FARRIS S SPRING [employer]ER Ot I10 ESSENTIAL (PRIMARY) HYPERTENSION 09/24/2016 MORENITA FARRIS S SPRING [employer]ER Ot Z79.899 OTHER ALF (CURRENT) DRUG THERAPY 09/24/2016 MORENITA FARRIS SPRING [employer]ER Ot C25.0 MALIGNANT NEOPLASM OF HEAD OF PANCREAS 09/24/2016 XNI PATE Ot C25.0 MALIGNANT NEOPLASM OF HEAD OF PANCREAS 09/24/2016 XIN PATE Ot 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 09/24/2016 XIN PATE Ot D64.9 ANEMIA, UNSPECIFIED 09/24/2016 HERLINDAXIN BRAUN N Ot Z23 ENCOUNTER FOR IMMUNIZATION 09/24/2016 XIN PATE Ot Z79.899 OTHER ALF (CURRENT) DRUG THERAPY 09/24/2016 MORENITA FARRIS SPRING [employer]ER Ot C25.0 MALIGNANT NEOPLASM OF HEAD OF PANCREAS 09/29/2016 XIN PATE Ot C25.0 MALIGNANT NEOPLASM OF HEAD OF PANCREAS 09/29/2016 XIN PATE Ot 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 09/29/2016 XIN PATE Ot D64.9 ANEMIA, UNSPECIFIED 09/29/2016 XIN PATE N Ot Z23 ENCOUNTER FOR IMMUNIZATION 09/29/2016 XIN PATE Ot Z79.899 OTHER ALF (CURRENT) DRUG THERAPY 09/29/2016 Ot 401.9 HYPERTENSION NOS 09/29/2016 Ot 785.1 PALPITATIONS 09/29/2016 Ot V12.59 HX- CIRCULATORY SYST DIS,NEC 09/29/2016 Ot V15.82 HISTORY OF TOBACCO USE 09/29/2016 YANETH LAZO, JENNIFER Hernandez Ot V76.12 OTH SCREEN MAMMO-MALIGN NEOPLASM OF [place] 09/29/2016 YANETH LAZO, JENNIFER Hernandez Ot 272.4 HYPERLIPIDEMIA NEC/NOS 09/29/2016 YANETH LAZO, JENNIFER Hernandez Ot 414.01 CORONARY ATHEROSCLEROSIS OF [place] CORON 09/29/2016 YANETH LAZO, JENNIFER Hernandez Ot 786.50 CHEST PAIN NOS 09/29/2016 YANETH LAZO, JENNIFER Hernandez Ot 789.00 ABDOMINAL PAIN, UNSPECIFIED SITE 09/29/2016 YANETH LAZO, JENNIFER Hernandez Ot 793.11 SOLITARY PULMONARY NODULE 09/29/2016 YANETH LAZO, JENNIFER Hernandez Ot 577.9 PANCREATIC DISEASE NOS 09/29/2016 JENNIFER WOLFE MD Ot 577.9 PANCREATIC DISEASE NOS 09/29/2016 JENNIFER WOLFE MD Ot 577.9 PANCREATIC DISEASE NOS 09/29/2016 KENNETH LAZO, INGRID S Ot 157.9 MALIG LEX PANCREAS NOS 09/29/2016 KENNETH LAZO, INGRID S Ot V72.84 EXAM PRE-OPERATIVE NOS 09/29/2016 MORENITA FARRIS S SPRING [employer]ER Ot 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 PANCREAS HEAD 09/29/2016 MORENITA FARRIS S SPRING [employer]ER Ot 196.9 MAL LEX LYMPH NODE NOS 09/29/2016 MORENITA FARRIS S SPRING [employer]ER Ot V58.69 OTH MED,LT,CURRENT USE 09/29/2016 Ot 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 PANCREAS HEAD 09/29/2016 Ot 196.9 MAL LEX LYMPH NODE NOS 09/29/2016 Ot 285.9 ANEMIA NOS 09/29/2016 Ot 288.60 LEUKOCYTOSIS , UNSPECIFIED 09/29/2016 Ot 780.60 FEVER, UNSPECIFIED 09/29/2016 Ot 782.4 JAUNDICE NOS 09/29/2016 Ot V58.69 OTH MED,LT, CURRENT USE 09/29/2016 Ot 288.60 LEUKOCYTOSIS , UNSPECIFIED 09/29/2016 Ot 780.60 FEVER, UNSPECIFIED 09/29/2016 MORENITA FARRIS S SPRING [employer]ER Ot 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 PANCREAS HEAD 09/29/2016 MORENITA FARRIS S SPRING [employer]ER Ot 196.9 MAL LEX LYMPH NODE NOS 09/29/2016 FARRISMORENITA Mckeon S SPRING [employer]ER Ot 285.9 ANEMIA NOS 09/29/2016 MORENITA FARRIS S [employer]ER Ot V58.69 OTH MED,LT,CURRENT USE 09/29/2016 MORENITA FARRIS S SPRING [employer]ER Ot 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 PANCREAS HEAD 09/29/2016 MORENITA FARRIS S SPRING [employer]ER Ot 196.9 MAL LEX LYMPH NODE NOS 09/29/2016 GERA FARRISAH S SPRING BENDER Ot 285.9 ANEMIA NOS 09/29/2016 GERA FARRISAH S SPRING [employer]ER Ot V58.69 OTH MED,LT,CURRENT USE 09/29/2016 GERA FARRISAH S SPRING [employer]ER Ot 157.9 MALIG LEX PANCREAS NOS 09/29/2016 MESSI LAZO, ROBERT Ot 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 PANCREAS HEAD 09/29/2016 MESSI LAZO, ROBERT Ot 196.9 MAL LEX LYMPH NODE NOS 09/29/2016 MESSI LAZO, ROBERT Ot 285.9 ANEMIA NOS 09/29/2016 MESSI LAZO, ROBERT Ot V58.69 OTH MED,LT,CURRENT USE 09/29/2016 MORENITA FARRIS SPR[employer]ER Ot 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 PANCREAS HEAD 09/29/2016 MORENITA FARRIS S SPRING [employer]ER Ot 196.9 MAL LEX LYMPH NODE NOS 09/29/2016 MORENITA FARRIS S SPRING [employer]ER Ot 285.9 ANEMIA NOS 09/29/2016 MORENITA FARRIS SPRING [employer]ER Ot V58.69 OTH MED,LT,CURRENT USE 09/29/2016 MORENITA FARRIS SPR[employer]ER Ot 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 PANCREAS HEAD 09/29/2016 MORENITA FARRIS S SPRING [employer]ER Ot 196.9 MAL LEX LYMPH NODE NOS 09/29/2016 MORENITA FARRIS S SPRING [employer]ER Ot 285.9 ANEMIA NOS 09/29/2016 MORENITA FARRISP Ot V58.69 OTH MED,LT,CURRENT USE 09/29/2016 MORENITA FARRSI SPRING B[employer]ER Ot 157.9 MALIG LEX PANCREAS NOS 09/29/2016 MORENITA FARRIS SPRING [employer]ER Ot C25.0 MALIGNANT NEOPLASM OF HEAD OF PANCREAS 09/29/2016 MORENITA FARRIS SPRING B[employer]ER Ot 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 09/29/2016 MORENITA FARRIS SPRING [employer]ER Ot 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 09/29/2016 MORENITA FARRIS SPRING [employer]ER Ot C25.0 MALIGNANT NEOPLASM OF HEAD OF PANCREAS 09/29/2016 MORENITA FARRIS SPRING [employer]ER Ot 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 09/29/2016 MORENITA FARRIS SPRING [employer]ER Ot C25.0 MALIGNANT NEOPLASM OF HEAD OF PANCREAS 09/29/2016 MORENITA FARRIS SPRING [employer]ER Ot 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 09/29/2016 MORENITA FARRIS SPRING [employer]ER Ot C25.0 MALIGNANT NEOPLASM OF HEAD OF PANCREAS 09/29/2016 MORENITA FARRISP Ot 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 09/29/2016 MORENITA FARRISP Ot 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 09/29/2016 MORENITA FARRIS SPRING [employer]ER Ot T45.1X5A ADVERSE EFFECT OF ANTINEOPLASTIC AND IMM 09/29/2016 FARRISMORENITA SPRING BENDER Ot 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 09/29/2016 GERA FARRISLATA Mckeon SPRING B[employer]ER Ot C25.0 MALIGNANT NEOPLASM OF HEAD OF PANCREAS 09/29/2016 GERA FARRISLATA Mike SPRING BENDER Ot C25.0 MALIGNANT NEOPLASM OF HEAD OF PANCREAS 09/29/2016 MORENITA FARRIS SPRING [employer]ER Ot 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 09/29/2016 MORENITA FARRIS SPRING [employer]ER Ot I10 ESSENTIAL (PRIMARY) HYPERTENSION 09/29/2016 GERA FARRISLATA Mckeon SPRING B[employer]ER Ot 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 09/29/2016 YANETH LAZO, JENNIFER Hernandez Ot R31.9 HEMATURIA, UNSPECIFIED 09/29/2016 LOREMARYCARMEN ANCELMO L SPRING BENDER Ot I10 ESSENTIAL (PRIMARY) HYPERTENSION 09/29/2016 LOREANCELMO CONROY L SPRING B[employer]ER Ot I25.10 ATHSCL HEART DISEASE OF [place] CORONARY 09/29/2016 LOREREENA CONROYHER L SPRING BENDER Ot 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 09/29/2016 LOREMARYCARMEN ANCELMO L SPRING BENDER Ot 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 09/29/2016 BAIANCELMO CONROY L SPRING B[employer]ER Ot R00.2 PALPITATIONS 09/29/2016 BAIMARYCARMEN ANCELMO L SPRING B[employer]ER Ot I10 ESSENTIAL (PRIMARY) HYPERTENSION 09/29/2016 BAIREENA CONROYHER L SPRING B[employer]ER Ot I25.10 ATHSCL HEART DISEASE OF [place] CORONARY 09/29/2016 BAIMAREENAANCELMO L SPRING BENDER Ot 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 09/29/2016 BAIMAREENAANCELMO L SPRING BENDER Ot I70.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M W INTRMT 09/29/2016 LOREANCELMO CONROY L SPRING B[employer]ER Ot R00.2 PALPITATIONS 09/29/2016 MORENITA FARRIS SPRING B[employer]ER Ot C25.0 MALIGNANT NEOPLASM OF HEAD OF PANCREAS 09/29/2016 MORENITA FARRIS SPRING [employer]ER Ot 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 09/29/2016 MORENITA FARRIS SPRING [employer]ER Ot I10 ESSENTIAL (PRIMARY) HYPERTENSION 09/29/2016 MORENITA FARRIS SPRING [employer]ER Ot R74.8 ABNORMAL LEVELS OF OTHER SERUM ENZYMES 09/29/2016 MORENITA FARRIS SPRING [employer]ER Ot Z79.899 OTHER ALF (CURRENT) DRUG THERAPY 09/29/2016 MORENITA FARRIS SPRING [employer]ER Ot C25.0 MALIGNANT NEOPLASM OF HEAD OF PANCREAS 09/29/2016 MORENITA FARRIS SPRING [employer]ER Ot C25.0 MALIGNANT NEOPLASM OF HEAD OF PANCREAS 09/29/2016 MORENITA FARRIS SPRING B[employer]ER Ot 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 09/29/2016 MORENITA FARRIS SPRING B[employer]ER Ot I10 ESSENTIAL (PRIMARY) HYPERTENSION 09/29/2016 MORENITA FARRISP Ot R74.8 ABNORMAL LEVELS OF OTHER SERUM ENZYMES 09/29/2016 MORENITA FARRISP Ot 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 09/29/2016 MORENITA FARRIS SPRING [employer]ER Ot C25.0 MALIGNANT NEOPLASM OF HEAD OF PANCREAS 09/29/2016 MORENITA FARRIS SPRING B[employer]ER Ot 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 09/29/2016 MORENITA FARRIS SPRING B[employer]ER Ot D64.9 ANEMIA, UNSPECIFIED 09/29/2016 MORENITA FARRIS SPRING B[employer]ER Ot I10 ESSENTIAL (PRIMARY) HYPERTENSION 09/29/2016 MORENITA FARRIS SPRING B[employer]ER Ot Z79.899 OTHER ALF (CURRENT) DRUG THERAPY 09/29/2016 MORENITA FARRIS SPRING B[employer]ER Ot C25.0 MALIGNANT NEOPLASM OF HEAD OF PANCREAS 09/29/2016 HERLINDAXIN N Ot C25.0 MALIGNANT NEOPLASM OF HEAD OF PANCREAS 09/29/2016 XIN PATE Ot 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 09/29/2016 XIN PATE N Ot D64.9 ANEMIA, UNSPECIFIED 09/29/2016 XIN PATE Ot Z23 ENCOUNTER FOR IMMUNIZATION 09/29/2016 XIN PATE N Ot Z79.899 OTHER ALF (CURRENT) DRUG THERAPY 09/29/2016 FARRISMORENITA Mckeon SPRING BENDER Ot C25.0 MALIGNANT NEOPLASM OF HEAD OF PANCREAS 10/14/2016 XIN PATE N Ot C25.0 MALIGNANT NEOPLASM OF HEAD OF PANCREAS 10/14/2016 XIN PATE N Ot 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 10/14/2016 XIN PATE N Ot D64.9 ANEMIA, UNSPECIFIED 10/14/2016 HERLINDAXIN N Ot Z23 ENCOUNTER FOR IMMUNIZATION 10/14/2016 XIN PATE N Ot 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 10/15/2016 FARRISMORENITA Mckeon SPRING B[employer]ER Ot C25.0 MALIGNANT NEOPLASM OF HEAD OF PANCREAS 10/22/2016 XIN PATE N Ot C25.0 MALIGNANT NEOPLASM OF HEAD OF PANCREAS 10/22/2016 XIN PATE N Ot 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 10/22/2016 XIN PATE N Ot D64.9 ANEMIA, UNSPECIFIED 10/22/2016 HERLINDAXIN BRAUN N Ot Z23 ENCOUNTER FOR IMMUNIZATION 10/22/2016 XIN PATE N Ot 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 10/22/2016 GERA FARRISLATA Mckeon SPRING BENDER Ot C25.0 MALIGNANT NEOPLASM OF HEAD OF PANCREAS 11/25/2016 XIN PATE N Ot C25.0 MALIGNANT NEOPLASM OF HEAD OF PANCREAS 11/25/2016 XIN PATE N Ot 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 11/25/2016 XIN PATE N Ot D64.9 ANEMIA, UNSPECIFIED 11/25/2016 HERLINDAXIN BRAUN N Ot Z23 ENCOUNTER FOR IMMUNIZATION 11/25/2016 XIN PATE N Ot Z45.2 ENCOUNTER FOR ADJUSTMENT AND MANAGEMENT 11/25/2016 XIN PATE N Ot 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 11/26/2016 XIN PATE N Ot C25.0 MALIGNANT NEOPLASM OF HEAD OF PANCREAS 11/26/2016 XIN PATE N Ot 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 11/26/2016 XIN PATE N Ot D64.9 ANEMIA, UNSPECIFIED 11/26/2016 HERLINDAXIN N Ot Z23 ENCOUNTER FOR IMMUNIZATION 11/26/2016 XIN PATE N Ot Z45.2 ENCOUNTER FOR ADJUSTMENT AND MANAGEMENT 11/26/2016 XIN PATE N Ot Z79.899 OTHER ALF (CURRENT) DRUG THERAPY 12/17/2016 Ot 401.9 HYPERTENSION NOS 12/17/2016 Ot 785.1 PALPITATIONS 12/17/2016 Ot V12.59 HX- CIRCULATORY SYST DIS,NEC 12/17/2016 Ot V15.82 HISTORY OF TOBACCO USE 12/17/2016 YANETH LAZO, JENNIFER Hernandez Ot V76.12 OTH SCREEN MAMMO-MALIGN NEOPLASM OF [place] 12/17/2016 YANETH LAZO, JENNIFER Hernandez Ot 272.4 HYPERLIPIDEMIA NEC/NOS 12/17/2016 YANETH LAZO, JENNIFER Hernandez Ot 414.01 CORONARY ATHEROSCLEROSIS OF [place] CORON 12/17/2016 YANETH LAZO, JENNIFER Hernandez Ot [...] S Ot V72.84 EXAM PRE-OPERATIVE NOS 12/17/2016 MORENITA FARRIS S SPRING BENDER Ot 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 PANCREAS HEAD 12/17/2016 FARRISMORENITA Mckeon S SPRING BENDER Ot 196.9 MAL LEX LYMPH NODE NOS 12/17/2016 FARRISMORENITA Mckeon S SPRING B[employer]ER Ot V58.69 OTH MED,LT,CURRENT USE 12/17/2016 Ot 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 PANCREAS HEAD 12/17/2016 Ot 196.9 MAL LEX LYMPH NODE NOS 12/17/2016 Ot 285.9 ANEMIA NOS 12/17/2016 Ot 288.60 LEUKOCYTOSIS , UNSPECIFIED 12/17/2016 Ot 780.60 FEVER, UNSPECIFIED 12/17/2016 Ot 782.4 JAUNDICE NOS 12/17/2016 Ot V58.69 OTH MED,LT, CURRENT USE 12/17/2016 Ot 288.60 LEUKOCYTOSIS , UNSPECIFIED 12/17/2016 Ot 780.60 FEVER, UNSPECIFIED 12/17/2016 MORENITA FARRIS S SPRING B[employer]ER Ot 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 PANCREAS HEAD 12/17/2016 FARRISMORENITA Mckeon S SPRING BENDER Ot 196.9 MAL LEX LYMPH NODE NOS 12/17/2016 FARRISMORENITA Mckeon S SPRING BENDER Ot 285.9 ANEMIA NOS 12/17/2016 FARRIS, HILAH S SPRING B[employer]ER Ot V58.69 OTH MED,LT,CURRENT USE 12/17/2016 MORENITA FARRIS SPR[employer]ER Ot 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 PANCREAS HEAD 12/17/2016 MORENITA FARRIS S SPRING B[employer]ER Ot 196.9 MAL LEX LYMPH NODE NOS 12/17/2016 MORENITA FARRIS S SPRING BENDER Ot 285.9 ANEMIA NOS 12/17/2016 MORENITA FARRIS SPRING [employer]ER Ot V58.69 OTH MED,LT,CURRENT USE 12/17/2016 MORENITA FARRIS S SPRING B[employer]ER Ot 157.9 MALIG LEX PANCREAS NOS 12/17/2016 THOMAS SWENSON MD-KEVAN Ot 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 PANCREAS HEAD 12/17/2016 THOMAS SWENSON MD-KEVAN Ot 196.9 MAL LEX LYMPH NODE NOS 12/17/2016 MESSI LAZO, THOMAS-KEVAN Ot 285.9 ANEMIA NOS 12/17/2016 ROBERT SWENSON MD Ot V58.69 OTH MED,LT,CURRENT USE 12/17/2016 MORENITA FARRIS SPR[employer]ER Ot 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 PANCREAS HEAD 12/17/2016 MORENITA FARRIS SPRING B[employer]ER Ot 196.9 MAL LEX LYMPH NODE NOS 12/17/2016 MORENITA FARRIS S SPRING BENDER Ot 285.9 ANEMIA NOS 12/17/2016 MORENITA FARRIS SPRING B[employer]ER Ot V58.69 OTH MED,LT,CURRENT USE 12/17/2016 MORENITA FARRIS SPRING BENDER Ot 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 PANCREAS HEAD 12/17/2016 MORENITA FARRIS SPRING BENDER Ot 196.9 MAL LEX LYMPH NODE NOS 12/17/2016 MORENITA FARRIS S SPRING BENDER Ot 285.9 ANEMIA NOS 12/17/2016 MORENITA FARRIS SPRING B[employer]ER Ot V58.69 OTH MED,LT,CURRENT USE 12/17/2016 OMRENITA FARRIS SPRING BENDER Ot 157.9 MALIG LEX PANCREAS NOS 12/17/2016 MORENITA FARRIS SPRING BENDER Ot C25.0 MALIGNANT NEOPLASM OF HEAD OF PANCREAS 12/17/2016 MORNEITA FARRIS SPRING BENDER Ot 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 12/17/2016 MORENITA FARRIS SPRING BENDER Ot 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 12/17/2016 MORENITA FARRIS SPRING BENDER Ot C25.0 MALIGNANT NEOPLASM OF HEAD OF PANCREAS 12/17/2016 MORENITA FARRIS SPRING BENDER Ot Z79.899 OTHER ALF (CURRENT) DRUG THERAPY 12/17/2016 MORENITA FARRIS SPRING BENDER Ot C25.0 MALIGNANT NEOPLASM OF HEAD OF PANCREAS 12/17/2016 MORENITA FARRIS SPRING BENDER Ot Z79.899 OTHER ALF (CURRENT) DRUG THERAPY 12/17/2016 MORENITA FARRIS SPRING BENDER Ot C25.0 MALIGNANT NEOPLASM OF HEAD OF PANCREAS 12/17/2016 MORENITA FARRIS SPRING BENDER Ot C77.9 SECONDARY AND UNSP MALIGNANT NEOPLASM OF 12/17/2016 MORENITA FARRIS SPRING BENDER Ot 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 12/17/2016 MORENITA FARRIS SPRING BENDER Ot T45.1X5A ADVERSE EFFECT OF ANTINEOPLASTIC AND IMM 12/17/2016 MORENITA FARRIS SPRING BENDER Ot Z79.899 OTHER ALF (CURRENT) DRUG THERAPY 12/17/2016 MORENITA FARRIS SPRING BENDER Ot C25.0 MALIGNANT NEOPLASM OF HEAD OF PANCREAS 12/17/2016 MORENITA FARRIS SPRING BENDER Ot C25.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 12/17/2016 MORENITA FARRISP Ot C77.9 SECONDARY AND UNSP MALIGNANT NEOPLASM OF 12/17/2016 MORENITA FARRIS SPRING BENDER Ot I10 ESSENTIAL (PRIMARY) HYPERTENSION 12/17/2016 MORENITA FARRIS SPRING BENDER Ot Z79.899 OTHER ALF (CURRENT) DRUG THERAPY 12/17/2016 YANETH LAZO, JENNIFER Hernandez Ot R31.9 HEMATURIA, UNSPECIFIED 12/17/2016 ANCELMO MARION SPRING [employer]ER Ot I10 ESSENTIAL (PRIMARY) HYPERTENSION 12/17/2016 ANCELMO MARION SPRING BENDER Ot I25.10 ATHSCL HEART DISEASE OF [place] CORONARY 12/17/2016 ANCELMO MARION SPRING B[employer]ER Ot 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 12/17/2016 ANCELMO MARION SPRING BENDER Ot I70.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M W INTRMT 12/17/2016 ANCELMO MARION SPRING BENDER Ot R00.2 PALPITATIONS 12/17/2016 ANCELMO MARION SPRING BENDER Ot I10 ESSENTIAL (PRIMARY) HYPERTENSION 12/17/2016 ANCELMO MARION SPRING BENDER Ot I25.10 ATHSCL HEART DISEASE OF [place] CORONARY 12/17/2016 ANCELMO MRAION SPRING BENDER Ot 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 12/17/2016 LOREANCELMO CONROY SPRING BENDER Ot I70.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M W INTRMT 12/17/2016 LOREANCELMO CONROY SPRING BENDER Ot R00.2 PALPITATIONS 12/17/2016 MORENITA FARRIS SPRING BENDER Ot C25.0 MALIGNANT NEOPLASM OF HEAD OF PANCREAS 12/17/2016 MORENITA FARRIS SPRING BENDER Ot 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 12/17/2016 MORENITA FARRIS SPRING BENDER Ot I10 ESSENTIAL (PRIMARY) HYPERTENSION 12/17/2016 MORENITA FARRIS SPRING BENDER Ot R74.8 ABNORMAL LEVELS OF OTHER SERUM ENZYMES 12/17/2016 MORENITA FARRIS SPRING BENDER Ot Z79.899 OTHER ALF (CURRENT) DRUG THERAPY 12/17/2016 MORENITA FARRIS SPRING BENDER Ot C25.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 12/17/2016 MORENITA FARRIS S SPRING BENDER Ot C25.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 12/17/2016 MORENITA FARRIS SPRING BENDER Ot 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 12/17/2016 MORENITA FARRIS SPRING BENDER Ot I10 ESSENTIAL (PRIMARY) HYPERTENSION 12/17/2016 MORENITA FARRIS SPRING BENDER Ot R74.8 ABNORMAL LEVELS OF OTHER SERUM ENZYMES 12/17/2016 MORENITA FARRIS SPRING BENDER Ot 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 12/17/2016 MORENITA FARRIS SPRING BENDER Ot C25.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 12/17/2016 MORENITA FARRIS SPRING BENDER Ot 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 12/17/2016 MORENITA FARRIS SPRING BENDER Ot D64.9 ANEMIA, UNSPECIFIED 12/17/2016 MORENITA FARRIS S SPRING BENDER Ot I10 ESSENTIAL (PRIMARY) HYPERTENSION 12/17/2016 MORENITA FARRIS S SPRING BENDER Ot Z79.899 OTHER ALF (CURRENT) DRUG THERAPY 12/17/2016 MORENITA FARRIS SPRING BENDER Ot C25.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 12/17/2016 MORENITA FARRIS SPRING BENDER Ot C25.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 12/17/2016 XIN PATE Ot C25.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 12/17/2016 XIN PATE Ot 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 12/17/2016 XIN PATE Ot D64.9 ANEMIA, UNSPECIFIED 12/17/2016 XIN PATE Ot Z23 ENCOUNTER FOR IMMUNIZATION 12/17/2016 XIN PATE Ot Z79.899 OTHER ALF (CURRENT) DRUG THERAPY 12/17/2016 Ot 401.9 HYPERTENSION NOS 12/17/2016 Ot 785.1 PALPITATIONS 12/17/2016 Ot V12.59 HX- CIRCULATORY SYST DIS,NEC 12/17/2016 Ot V15.82 HISTORY OF TOBACCO USE 12/17/2016 YANETH LAZO, JENNIFER Hernandez Ot V76.12 OTH SCREEN MAMMO-MALIGN NEOPLASM OF [place] 12/17/2016 YANETH LAZO, JENNIFER Hernandez Ot 272.4 HYPERLIPIDEMIA NEC/NOS 12/17/2016 YANETH LAZO, JENNIFER Hernandez Ot 414.01 CORONARY ATHEROSCLEROSIS OF [place] CORON 12/17/2016 YANETH LAZO, JENNIFER Hernandez Ot [...] S Ot V72.84 EXAM PRE-OPERATIVE NOS 12/17/2016 MORENITA FARRIS SPRING BENDER Ot 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 PANCREAS HEAD 12/17/2016 MORENITA FARRIS SPRING BENDER Ot 196.9 MAL LEX LYMPH NODE NOS 12/17/2016 MORENITA FARRIS SPRING BENDER Ot V58.69 OTH MED,LT,CURRENT USE 12/17/2016 Ot 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 PANCREAS HEAD 12/17/2016 Ot 196.9 MAL LEX LYMPH NODE NOS 12/17/2016 Ot 285.9 ANEMIA NOS 12/17/2016 Ot 288.60 LEUKOCYTOSIS , UNSPECIFIED 12/17/2016 Ot 780.60 FEVER, UNSPECIFIED 12/17/2016 Ot 782.4 JAUNDICE NOS 12/17/2016 Ot V58.69 OTH MED,LT, CURRENT USE 12/17/2016 Ot 288.60 LEUKOCYTOSIS , UNSPECIFIED 12/17/2016 Ot 780.60 FEVER, UNSPECIFIED 12/17/2016 FARRIS, HILAH S SPRING BENDER Ot 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 PANCREAS HEAD 12/17/2016 FARRIS, HILAH S SPRING BENDER Ot 196.9 MAL LEX LYMPH NODE NOS 12/17/2016 FARRIS HILAH S SPRING BENDER Ot 285.9 ANEMIA NOS 12/17/2016 FARRIS HILAH S SPRING BENDER Ot V58.69 OTH MED,LT,CURRENT USE 12/17/2016 FARRIS HILAH S SPRING BENDER Ot 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 PANCREAS HEAD 12/17/2016 FARRIS HILAH S SPRING BENDER Ot 196.9 MAL LEX LYMPH NODE NOS 12/17/2016 FARRIS HILAH S SPRING BENDER Ot 285.9 ANEMIA NOS 12/17/2016 FARRISMORENITA S SPRING BENDER Ot V58.69 OTH MED,LT,CURRENT USE 12/17/2016 FARRISMORENITA Mckeon S SPRING BENDER Ot 157.9 MALIG LEX PANCREAS NOS 12/17/2016 ROBERT SWENSON MD Ot 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 PANCREAS HEAD 12/17/2016 ROBERT SWENSON MD Ot 196.9 MAL LEX LYMPH NODE NOS 12/17/2016 ROBERT SWENSON MD Ot 285.9 ANEMIA NOS 12/17/2016 ROBERT SWENSON MD Ot V58.69 OTH MED,LT,CURRENT USE 12/17/2016 FARRIS, HILAH S SPRING BENDER Ot 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 PANCREAS HEAD 12/17/2016 FARRIS HILAH S SPRING BENDER Ot 196.9 MAL LEX LYMPH NODE NOS 12/17/2016 FARRIS HILAH S SPRING BENDER Ot 285.9 ANEMIA NOS 12/17/2016 FARRIS HILAH S SPRING BENDER Ot V58.69 OTH MED,LT,CURRENT USE 12/17/2016 FARRISGERAAH S SPRING BENDER Ot 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 PANCREAS HEAD 12/17/2016 FARRIS HILAH S SPRING BENDER Ot 196.9 MAL LEX LYMPH NODE NOS 12/17/2016 KALEIGHMORENITA SPRING BENDER Ot 285.9 ANEMIA NOS 12/17/2016 GERA FARRISLATA Mckeon SPRING BENDER Ot V58.69 OT MED,LT,CURRENT USE 12/17/2016 KALEIGH MORENITA Mckeon SPRING BENDER Ot 157.9 MALIG LEX PANCREAS NOS 12/17/2016 MORENITA FARRIS SPRING BENDER Ot C25.0 MALIGNANT NEOPLASM OF HEAD OF PANCREAS 12/17/2016 GERA FARRISLATA iMke SPRING BENDER Ot 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 12/17/2016 MORENITA FARRIS SPRING BENDER Ot Z79.899 OTHER ALF (CURRENT) DRUG THERAPY 12/17/2016 MORENITA FARRIS SPRING BENDER Ot C25.0 MALIGNANT NEOPLASM OF HEAD OF PANCREAS 12/17/2016 MORENITA FARRIS SPRING BENDER Ot 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 12/17/2016 MORENITA FARRIS SPRING BENDER Ot C25.0 MALIGNANT NEOPLASM OF HEAD OF PANCREAS 12/17/2016 MORENITA FARRIS SPRING BENDER Ot Z79.899 OTHER ALF (CURRENT) DRUG THERAPY 12/17/2016 MORENITA FARRIS SPRING BENDER Ot C25.0 MALIGNANT NEOPLASM OF HEAD OF PANCREAS 12/17/2016 MORENITA FARRIS SPRING BENDER Ot 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 12/17/2016 MORENITA FARRIS SPRING BENDER Ot 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 12/17/2016 MORENITA FARRIS SPRING BENDER Ot T45.1X5A ADVERSE EFFECT OF ANTINEOPLASTIC AND IMM 12/17/2016 MORENITA FARRIS SPRING BENDER Ot Z79.899 OTHER ALF (CURRENT) DRUG THERAPY 12/17/2016 MORENITA FARRIS SPRING BENDER Ot C25.0 MALIGNANT NEOPLASM OF HEAD OF PANCREAS 12/17/2016 MORENITA FARRIS SPRING BENDER Ot C25.0 MALIGNANT NEOPLASM OF HEAD OF PANCRE[place] 12/17/2016 MORENITA FARRIS SPRING BENDER Ot 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 12/17/2016 MORENITA FARRIS SPRING BENDER Ot I10 ESSENTIAL (PRIMARY) HYPERTENSION 12/17/2016 MORENITA FARRIS SPRING BENDER Ot 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 12/17/2016 YANETH LAZO, JENNIFER Hernandez Ot R31.9 HEMATURIA, UNSPECIFIED 12/17/2016 BAIANCELMO CONROY L SPRING BENDER Ot I10 ESSENTIAL (PRIMARY) HYPERTENSION 12/17/2016 BAIREENA CONROYHER L SPRING BENDER Ot I25.10 ATHSCL HEART DISEASE OF [place] CORONARY 12/17/2016 BAIREENA CONROYHER L SPRING BENDER Ot 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 12/17/2016 BAIMA, ANCELMO L SPRING BENDER Ot I70.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 [facility] 12/17/2016 BAIREENA CORNOYHER L SPRING BENDER Ot R00.2 PALPITATIONS 12/17/2016 BAIMA ANCELMO L SPRING BENDER Ot I10 ESSENTIAL (PRIMARY) HYPERTENSION 12/17/2016 BAIREENA CONROYHER L SPRING BENDER Ot I25.10 ATHSCL HEART DISEASE OF [place] CORONARY 12/17/2016 BAIMAREENAANCELMO L SPRING BENDER Ot 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 12/17/2016 BAIMAREENAANCELMO L SPRING BENDER Ot I70.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 [facility] 12/17/2016 BAIANCELMO CONROY L SPRING BENDER Ot R00.2 PALPITATIONS 12/17/2016 MORENITA FARRISP Ot C25.0 MALIGNANT NEOPLASM OF HEAD OF PANCREAS 12/17/2016 MORENITA FARRSI SPRING BENDER Ot 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 12/17/2016 MORENITA FARRIS SPRING BENDER Ot I10 ESSENTIAL (PRIMARY) HYPERTENSION 12/17/2016 MORENITA FARRISP Ot R74.8 ABNORMAL LEVELS OF OTHER SERUM ENZYMES 12/17/2016 MORENITA FARRIS SPRING BENDER Ot Z79.899 OTHER ALF (CURRENT) DRUG THERAPY 12/17/2016 MORENITA FARRIS SPRING BENDER Ot C25.0 MALIGNANT NEOPLASM OF HEAD OF PANCRE[place] 12/17/2016 MORENITA FARRIS SPRING BENDER Ot C25.0 MALIGNANT NEOPLASM OF HEAD OF PANCRE[place] 12/17/2016 MORENITA FARRIS SPRING BENDER Ot 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 12/17/2016 MORENITA FARRIS SPRING BENDER Ot I10 ESSENTIAL (PRIMARY) HYPERTENSION 12/17/2016 MORENITA FARRIS SPRING BENDER Ot R74.8 ABNORMAL LEVELS OF OTHER SERUM ENZYMES 12/17/2016 FARRISMORENITA Mckeon SPRING BENDER Ot 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 12/17/2016 FARRISMORENITA Mckeon SPRING BENDER Ot C25.0 MALIGNANT NEOPLASM OF HEAD OF PANCREAS 12/17/2016 FARRISMORENITA Mckeon SPRING BENDER Ot 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 12/17/2016 KALEIGH MORENITA Mckeon SPRING BENDER Ot D64.9 ANEMIA, UNSPECIFIED 12/17/2016 FARRISGERALATA Mckeon SPRING BENDER Ot I10 ESSENTIAL (PRIMARY) HYPERTENSION 12/17/2016 FARRISMORENITA Mckeon SPRING BENDER Ot 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 12/17/2016 KALEIGH MORENITA Mckeon SPRING BENDER Ot C25.0 MALIGNANT NEOPLASM OF HEAD OF PANCREAS 12/17/2016 FARRIS MORENITA Mckeon SPRING BENDER Ot C25.0 MALIGNANT NEOPLASM OF HEAD OF PANCREAS 12/17/2016 XIN APTE Ot C25.0 MALIGNANT NEOPLASM OF HEAD OF PANCRE[place] 12/17/2016 XIN PATE Ot 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 12/17/2016 XIN PATE Ot D64.9 ANEMIA, UNSPECIFIED 12/17/2016 XIN PATE Ot Z23 ENCOUNTER FOR IMMUNIZATION 12/17/2016 XIN PATE Ot Z79.899 OTHER ALF (CURRENT) DRUG THERAPY 12/18/2016 GERA FARRISLATA Mckeon SPRING BENDER Ot C25.0 MALIGNANT NEOPLASM OF HEAD OF PANCREAS 12/18/2016 GERA FARRISLATA Mike SPRING BENDER Ot R22.2 LOCALIZED SWELLING, MASS AND LUMP, TRUNK 12/18/2016 GERA FARRISLATA Mckeon SPRING BENDER Ot R59.0 LOCALIZED ENLARGED LYMPH NODES 12/18/2016 KALEIGH MORENITA Mckeon SPRING BENDER Ot R91.8 OTHER NONSPECIFIC ABNORMAL FINDING OF [place] 12/18/2016 XIN PATE Ot C25.0 MALIGNANT NEOPLASM OF HEAD OF PANCRE[place] 12/18/2016 XIN PATE Ot 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 12/18/2016 XIN PATE Ot D64.9 ANEMIA, UNSPECIFIED 12/18/2016 XIN PATE Ot Z79.899 OTHER ALF (CURRENT) DRUG THERAPY 12/18/2016 MORENITA FARRIS S SPRING BENDER Ot C25.0 MALIGNANT NEOPLASM OF HEAD OF PANCREAS 12/18/2016 FARRISMORENITA Mckeon S SPRING BENDER Ot R22.2 LOCALIZED SWELLING, MASS AND LUMP, TRUNK 12/18/2016 FARRISMORENITA Mckeon S SPRING BENDER Ot R59.0 LOCALIZED ENLARGED LYMPH NODES 12/18/2016 FARRIS MORENITA S SPRING BENDER Ot R91.8 OTHER NONSPECIFIC ABNORMAL FINDING OF [place] 12/30/2016 HERLINDA MARILUANGELICA N Ot C25.0 MALIGNANT NEOPLASM OF HEAD OF PANCREAS 12/30/2016 HERLINDAXIN Ot 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 12/30/2016 HERLINDAXIN N Ot D64.9 ANEMIA, UNSPECIFIED 12/30/2016 HERLINDAXIN Ot Z79.899 OTHER ALF (CURRENT) DRUG THERAPY 01/07/2017 FARRIS MORENITA S SPRING BENDER Ot C25.0 MALIGNANT NEOPLASM OF HEAD OF PANCREAS 01/07/2017 FARRIS MORENITA S SPRING BENDER Ot R22.2 LOCALIZED SWELLING, MASS AND LUMP, TRUNK 01/07/2017 FARRIS MORENITA S SPRING BENDER Ot R59.0 LOCALIZED ENLARGED LYMPH NODES 01/07/2017 FARRIS, MORENITA S SPRING BENDER Ot R91.8 OTHER NONSPECIFIC ABNORMAL FINDING OF [place] 01/14/2017 FARRIS MORENITA S SPRING BENDER Ot C25.0 MALIGNANT NEOPLASM OF HEAD OF PANCREAS 01/14/2017 FARRISMORENITA Mckeon S SPRING BENDER Ot R22.2 LOCALIZED SWELLING, MASS AND LUMP, TRUNK 01/14/2017 FARRIS MORENITA S SPRING BENDER Ot R59.0 LOCALIZED ENLARGED LYMPH NODES 01/14/2017 KALEIGH MORENITA S SPRING BENDER Ot R91.8 OTHER NONSPECIFIC ABNORMAL FINDING OF [place] 01/21/2017 XIN PATE N Ot C25.0 MALIGNANT NEOPLASM OF HEAD OF PANCRE[place] 01/21/2017 XIN PATE Ot 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 01/21/2017 XIN PATE Ot D64.9 ANEMIA, UNSPECIFIED 01/21/2017 XIN PATE N Ot 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 01/23/2017 RONEL MARES APRN Ot 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, UNSPECIF 01/23/2017 RONEL MARES TEST LAB TECHNICIAN Ot I10 ESSENTIAL (PRIMARY) HYPERTENSION 01/23/2017 RONEL MARES APRN Ot M47.814 SPONDYLOSIS W/O MYELOPATHY OR RADICULOPA 01/23/2017 RONEL MARES APRN Ot M47.816 SPONDYLOSIS W/O MYELOPATHY OR RADICULOPA 01/23/2017 RONEL MARES APRN Ot M54.6 PAIN IN THORACIC SPINE 01/23/2017 RONEL MARES APRN Ot 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 01/25/2017 RONEL MARES TEST LAB TECHNICIAN Ot 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, UNSPECIF 01/25/2017 RONEL MARES TEST LAB TECHNICIAN Ot I10 ESSENTIAL (PRIMARY) HYPERTENSION 01/25/2017 RONEL MARES APRN Ot M47.814 SPONDYLOSIS W/O MYELOPATHY OR RADICULOPA 01/25/2017 RONEL MARES APRN Ot M47.816 SPONDYLOSIS W/O MYELOPATHY OR RADICULOPA 01/25/2017 RONEL MARES APRN Ot M54.6 PAIN IN THORACIC SPINE 01/25/2017 RONEL MARES TEST LAB TECHNICIAN Ot 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 02/08/2017 XIN PATE Ot C25.0 MALIGNANT NEOPLASM OF HEAD OF [place]CRE[place] 02/08/2017 XIN PATE Ot 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 02/08/2017 XIN PATE Ot D64.9 ANEMIA, UNSPECIFIED 02/08/2017 XIN PATE Ot 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 02/10/2017 ITZEL SCOTT DO Ot 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, UNSPECIF 02/10/2017 ITZEL SCOTT DO Ot I10 ESSENTIAL (PRIMARY) HYPERTENSION 02/10/2017 ITZEL SCOTT DO Ot M47.816 SPONDYLOSIS W/O MYELOPATHY OR RADICULOPA 02/10/2017 ITZEL SCOTT DO Ot N39.0 URINARY TRACT INFECTION, SITE NOT SPECIF 02/10/2017 ITZEL SCOTT DO Ot S22.070A WEDGE COMPRESSION FRACTURE OF T9-T10 ANKIT 02/10/2017 ITZEL SCOTT DO, Ot X50.9XXA OTHER AND UNSPECIFIED OVREXRTN OR STRNOU 02/10/2017 ITZEL SCOTT DO Ot Y92.[address] TO SINGLE-FAMILY ([facility] 02/10/2017 ITZEL SCOTT DO Ot Y99.8 OTHER EXTERNAL CAUSE STATUS 02/10/2017 ITZEL SCOTT DO Ot 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 02/10/2017 HERLINDA MARILUANGELICA Lilli Ot C25.0 MALIGNANT NEOPLASM OF HEAD OF [place] 02/10/2017 HERLINDA XIN Reeder Ot 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 02/10/2017 HERLINDA XIN Reeder Ot D64.9 ANEMIA, UNSPECIFIED 02/10/2017 HERLINDA MARILUANGELICA Lilli Ot 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 02/11/2017 ITZEL SCOTT DO, Ot 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, UNSPECIF 02/11/2017 ITZEL SCOTT DO Ot I10 ESSENTIAL (PRIMARY) HYPERTENSION 02/11/2017 ITZEL SCOTT DO Ot M47.816 SPONDYLOSIS W/O MYELOPATHY OR RADICULOPA 02/11/2017 ITZEL SCOTT DO Ot N39.0 URINARY TRACT INFECTION, SITE NOT SPECIF 02/11/2017 ITZEL SCOTT DO Ot S22.070A WEDGE COMPRESSION FRACTURE OF T9-T10 ANKIT 02/11/2017 ITZEL SCOTT DO Ot X50.9XXA OTHER AND UNSPECIFIED OVREXRTN OR STRNOU 02/11/2017 ITZEL SCOTT DO Ot Y92.[address] TO SINGLE-FAMILY ([facility] 02/11/2017 ITZEL SCOTT DO Ot Y99.8 OTHER EXTERNAL CAUSE STATUS 02/11/2017 ITZEL SCOTT DO Ot Z79.899 OTHER ALF (CURRENT) DRUG THERAPY 02/13/2017 ITZEL SCOTT DO Ot 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, UNSPECIF 02/13/2017 ITZEL SCOTT DO Ot I10 ESSENTIAL (PRIMARY) HYPERTENSION 02/13/2017 ITZEL SCOTT DO, Ot M47.816 SPONDYLOSIS W/O MYELOPATHY OR RADICULOPA 02/13/2017 ITZEL SCOTT DO Ot N39.0 URINARY TRACT INFECTION, SITE NOT SPECIF 02/13/2017 ITZEL SCOTT DO Ot S22.070A WEDGE COMPRESSION FRACTURE OF T9-T10 ANKIT 02/13/2017 ITZEL SCOTT DO Ot X50.9XXA OTHER AND UNSPECIFIED OVREXRTN OR STRNOU 02/13/2017 ITZEL SCOTT DO Ot Y92.[address] TO SINGLE-FAMILY ([facility] 02/13/2017 ITZEL SCOTT DO Ot Y99.8 OTHER EXTERNAL CAUSE STATUS 02/13/2017 ITZEL SCOTT DO Ot 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 02/17/2017 ITZEL SCOTT DO [...] OTHER AND UNSPECIFIED OVREXRTN OR STRNOU 02/17/2017 ITZEL SCOTT DO Ot Y92.[address] TO SINGLE-FAMILY ([facility] 02/17/2017 ITZEL SCOTT DO Ot Y99.8 OTHER EXTERNAL CAUSE STATUS 02/17/2017 ITZEL SCOTT DO Ot 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 02/17/2017 ITZEL SCOTT DO [...] OTHER AND UNSPECIFIED OVREXRTN OR STRNOU 02/17/2017 ITZEL SCOTT DO Ot Y92.[address] TO SINGLE-FAMILY ([facility] 02/17/2017 ITZEL SCOTT DO Ot Y99.8 OTHER EXTERNAL CAUSE STATUS 02/17/2017 ITZEL SCOTT DO Ot 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 02/17/2017 ERICKA MONTGOMERY MD [...] Z86.718 PERSONAL HISTORY OF OTHER VENOUS THROMBO 03/04/2017 XIN PATE Ot C25.0 MALIGNANT NEOPLASM OF HEAD OF PANCRE[place] 03/04/2017 XIN PATE Ot C77.9 SECONDARY AND UNSP MALIGNANT NEOPLASM OF 03/04/2017 XIN PATE Ot D64.9 ANEMIA, UNSPECIFIED 03/04/2017 XIN PATE Ot Z79.899 OTHER ALF (CURRENT) DRUG THERAPY 03/04/2017 ITZEL SCOTT DO Ot 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, UNSPECIF 03/04/2017 ITZEL SCOTT DO Ot I10 ESSENTIAL (PRIMARY) HYPERTENSION 03/04/2017 ITZEL SCOTT DO Ot M47.816 SPONDYLOSIS W/O MYELOPATHY OR RADICULOPA 03/04/2017 ITZEL SCOTT DO Ot N39.0 URINARY TRACT INFECTION, SITE NOT SPECIF 03/04/2017 ITZEL SCOTT DO Ot S22.070A WEDGE COMPRESSION FRACTURE OF T9-T10 ANKIT 03/04/2017 ITZEL SCOTT DO Ot X50.9XXA OTHER AND UNSPECIFIED OVREXRTN OR STRNOU 03/04/2017 ITZEL SCOTT DO Ot Y92.[address] TO SINGLE-FAMILY ([facility] 03/04/2017 ITZEL SCOTT DO Ot Y99.8 OTHER EXTERNAL CAUSE STATUS 03/04/2017 ITZEL SCOTT DO Ot Z79.899 OTHER ALF (CURRENT) DRUG THERAPY 03/15/2017 Ot 998.59 03/17/2017 HERLINDAXIN Ot C25.0 MALIGNANT NEOPLASM OF HEAD OF [place] 03/17/2017 XIN PATE Ot 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 03/17/2017 HERLINDAXIN Ot D64.9 ANEMIA, UNSPECIFIED 03/17/2017 XIN PATE Ot Z51.11 ENCOUNTER FOR ANTINEOPLASTIC CHEMOTHERAP 03/17/2017 XIN PATE Ot 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 03/18/2017 ZAYRA ELIZONDO MD Ot C25.0 MALIGNANT NEOPLASM OF HEAD OF [place] 03/18/2017 ZAYRA ELIZONDO MD Ot M54.5 LOW BACK PAIN 03/18/2017 ZAYRA ELIZONDO MD Ot S22.070D WEDGE COMPRSN FX T9-T10 [place]BRA, SUBS F 03/18/2017 ZAYRA ELIZONDO MD Ot X50.0XXD OVEREXERTION FROM STRENUOUS MOVEMENT OR 03/18/2017 ZAYRA ELIZONDO MD Ot Y99.8 OTHER EXTERNAL CAUSE STATUS 03/19/2017 XIN PATE Ot C25.0 MALIGNANT NEOPLASM OF HEAD OF [place] 03/19/2017 XIN PATE Ot 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 03/19/2017 XIN PATE Ot D64.9 ANEMIA, UNSPECIFIED 03/19/2017 XIN PATE Ot 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 03/20/2017 RONEL MARES APRN Ot 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, UNSPECIF 03/20/2017 RONEL MARES APRN Ot I10 ESSENTIAL (PRIMARY) HYPERTENSION 03/20/2017 RONEL MARES APRN Ot 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, NEC, THORACIC REGION 03/20/2017 RONEL MARES APRN Ot M54.6 PAIN IN THORACIC SPINE 03/20/2017 RONEL MARES APRN Ot N39.0 URINARY TRACT INFECTION, SITE NOT SPECIF 03/20/2017 RONEL MARES APRN Ot Z79.899 OTHER ALF (CURRENT) DRUG THERAPY 03/20/2017 RONEL MARES APRN Ot Z86.718 PERSONAL HISTORY OF OTHER VENOUS THROMBO 03/23/2017 RONEL MARES APRN Ot 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, UNSPECIF 03/23/2017 RONEL MARES APRN Ot I10 ESSENTIAL (PRIMARY) HYPERTENSION 03/23/2017 RONEL MARES APRN Ot 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, NEC, THORACIC REGION 03/23/2017 RONEL MARES APRN Ot M54.6 PAIN IN THORACIC SPINE 03/23/2017 RONEL MARES APRN Ot N39.0 URINARY TRACT INFECTION, SITE NOT SPECIF 03/23/2017 RONEL MARES APRN Ot 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 03/23/2017 RONEL MARES APRN Ot Z86.718 PERSONAL HISTORY OF OTHER VENOUS THROMBO 04/01/2017 SALINA COTA MD Ot 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, UNSPECIF 04/01/2017 SALINA COTA MD Ot I10 ESSENTIAL (PRIMARY) HYPERTENSION 04/01/2017 SALINA COTA MD Ot J84.10 PULMONARY FIBROSIS, UNSPECIFIED 04/01/2017 SALINA COTA MD Ot K83.1 OBSTRUCTION OF BILE DUCT 04/01/2017 SALINA COTA MD Ot R07.89 OTHER CHEST PAIN 04/01/2017 SALINA COTA MD Ot 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 04/01/2017 SALINA COTA MD Ot Z95.828 PRESENCE OF OTHER VASCULAR IMPLANTS AND 04/02/2017 SALINA COTA MD Ot 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, UNSPECIF 04/02/2017 SALINA COTA MD Ot I10 ESSENTIAL (PRIMARY) HYPERTENSION 04/02/2017 SALINA COTA MD Ot J84.10 PULMONARY FIBROSIS, UNSPECIFIED 04/02/2017 SALINA COTA MD Ot K83.1 OBSTRUCTION OF BILE DUCT 04/02/2017 SALINA COTA MD Ot R07.89 OTHER CHEST PAIN 04/02/2017 SALINA COTA MD Ot 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 04/02/2017 SALINA CTOA MD Ot Z95.828 PRESENCE OF OTHER VASCULAR IMPLANTS AND 04/09/2017 ZAYRA ELIZONDO MD Ot C25.0 MALIGNANT NEOPLASM OF HEAD OF [place] 04/09/2017 ZAYRA ELIZONDO MD Ot M54.5 LOW BACK PAIN 04/09/2017 ZAYRA ELIZONDO MD Ot S22.070D WEDGE COMPRSN FX T9-T10 [place], SUBS F 04/09/2017 ZAYRA ELIZONDO MD Ot X50.0XXD OVEREXERTION FROM STRENUOUS MOVEMENT OR 04/09/2017 ZAYRA ELIZONDO MD Ot Y99.8 OTHER EXTERNAL CAUSE STATUS 04/14/2017 XIN PATE Ot C25.0 MALIGNANT NEOPLASM OF HEAD OF [place] 04/14/2017 XIN PATE Ot C77.9 SECONDARY AND UNSP MALIGNANT NEOPLASM OF 04/14/2017 XIN PATE Ot D64.9 ANEMIA, UNSPECIFIED 04/14/2017 XIN PATE Ot 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 04/14/2017 ZAYRA ELIZONDO MD Ot C25.0 MALIGNANT NEOPLASM OF HEAD OF [place] 04/14/2017 ZAYRA ELIZONDO MD Ot M54.5 LOW BACK PAIN 04/14/2017 ZAYRA ELIZONDO MD Ot S22.070D WEDGE COMPRSN FX T9-T10 [place], SUBS F 04/14/2017 ZAYRA ELIZONDO MD Ot X50.0XXD OVEREXERTION FROM STRENUOUS MOVEMENT OR 04/14/2017 ZAYRA ELIZONDO MD Ot Y99.8 OTHER EXTERNAL CAUSE STATUS 04/16/2017 MORENITA FARRISP Ot C25.0 MALIGNANT NEOPLASM OF HEAD OF [place]CRE[place] 04/16/2017 MORENITA FARRISP Ot M79.605 PAIN IN LEFT LEG 04/16/2017 MORENITA FARRISP Ot M79.89 OTHER SPECIFIED SOFT TISSUE DISORDERS 04/16/2017 MORENITA FARRIS SPRING BENDER Ot C25.0 MALIGNANT NEOPLASM OF HEAD OF [place]CRE[place] 04/16/2017 MORENITA FARRIS SPRING BENDER Ot M79.605 PAIN IN LEFT LEG 04/16/2017 MORENITA FARRIS S SPRING BENDER Ot M79.89 OTHER SPECIFIED SOFT TISSUE DISORDERS 04/16/2017 MORENITA FARRIS SPRING BENDER Ot C25.0 MALIGNANT NEOPLASM OF HEAD OF [place]CRE[place] 04/16/2017 MORENITA FARRIS S SPRING BENDER Ot M79.605 PAIN IN LEFT LEG 04/16/2017 FARRIS MORENITA S SPRING BENDER Ot M79.89 OTHER SPECIFIED SOFT TISSUE DISORDERS 04/16/2017 MORENITA FARRIS S SPRING BENDER Ot C25.0 MALIGNANT NEOPLASM OF HEAD OF PANCRE[place] 04/16/2017 FARRISMORENITA Mckeon S SPRING BENDER Ot M79.605 PAIN IN LEFT LEG 04/16/2017 FARRIS MORENITA S SPRING BENDER Ot M79.89 OTHER SPECIFIED SOFT TISSUE DISORDERS 04/16/2017 MORENITA FARRIS SPRING BENDER Ot C25.0 MALIGNANT NEOPLASM OF HEAD OF [place]CRE[place] 04/16/2017 FARRISMORENITA Mckeon S SPRING BENDER Ot M79.605 PAIN IN LEFT LEG 04/16/2017 FARRIS MORENITA Mckeon SPRING BENDER Ot M79.89 OTHER SPECIFIED SOFT TISSUE DISORDERS 04/16/2017 MORENITA FARRIS SPRING BENDER Ot C25.0 MALIGNANT NEOPLASM OF HEAD OF PANCREAS 04/16/2017 FARRISMORENITA Mckeon S SPRING BENDER Ot M79.605 PAIN IN LEFT LEG 04/16/2017 FARRISMORENITA Mckeon S SPRING BENDER Ot M79.89 OTHER SPECIFIED SOFT TISSUE DISORDERS 04/22/2017 ITZEL SCOTT DO, Ot 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, UNSPECIF 04/22/2017 ITZEL SCOTT DO, Ot I10 ESSENTIAL (PRIMARY) HYPERTENSION 04/22/2017 ITZEL SCOTT DO, Ot M47.816 SPONDYLOSIS W/O MYELOPATHY OR RADICULOPA 04/22/2017 ITZEL SCOTT DO, Ot N39.0 URINARY TRACT INFECTION, SITE NOT SPECIF 04/22/2017 ITZEL SCOTT DO, Ot S22.070A WEDGE COMPRESSION FRACTURE OF T9-T10 ANKIT 04/22/2017 ITZEL SCOTT DO, Ot X50.9XXA OTHER AND UNSPECIFIED OVREXRTN OR STRNOU 04/22/2017 ITZEL SCOTT DO, Ot Y92.[address] TO SINGLE-FAMILY ([facility] 04/22/2017 ITZEL SCOTT DO Ot Y99.8 OTHER EXTERNAL CAUSE STATUS 04/22/2017 ITZEL SCOTT DO Ot 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 04/28/2017 MORENITA FARRIS SPRING BENDER Ot C25.0 MALIGNANT NEOPLASM OF HEAD OF PANCREAS 04/28/2017 MORENITA FARRIS SPRING BENDER Ot R91.1 SOLITARY PULMONARY NODULE 05/03/2017 MORENITA FARRIS SPRING BENDER Ot C25.0 MALIGNANT NEOPLASM OF HEAD OF PANCREAS 05/03/2017 MORENITA FARRIS SPRING BENDER Ot R91.1 SOLITARY PULMONARY NODULE 05/04/2017 MORENITA FARRIS SPRING BENDER Ot C25.0 MALIGNANT NEOPLASM OF HEAD OF PANCREAS 05/04/2017 MORENITA FARRIS SPRING BENDER Ot M79.605 PAIN IN LEFT LEG 05/04/2017 MORENITA FARRIS SPRING BENDER Ot M79.89 OTHER SPECIFIED SOFT TISSUE DISORDERS 05/13/2017 MORENITA FARRIS SPRING BENDER Ot C25.0 MALIGNANT NEOPLASM OF HEAD OF PANCREAS 05/13/2017 MORENITA FARRIS SPRING BENDER Ot M79.605 PAIN IN LEFT LEG 05/13/2017 MORENITA FARRIS SPRING BENDER Ot M79.89 OTHER SPECIFIED SOFT TISSUE DISORDERS 05/20/2017 MORENITA FARRIS SPRING BENDER Ot C25.0 MALIGNANT NEOPLASM OF HEAD OF PANCREAS 05/20/2017 MORENITA FARRIS SPRING BENDER Ot R91.1 SOLITARY PULMONARY NODULE 05/28/2017 MORENITA FARRIS SPRING BENDER Ot C25.0 MALIGNANT NEOPLASM OF HEAD OF PANCREAS 05/28/2017 MORENITA FARRIS SPRING BENDER Ot R91.1 SOLITARY PULMONARY NODULE 06/10/2017 Ot 401.9 HYPERTENSION NOS 06/10/2017 Ot 785.1 PALPITATIONS 06/10/2017 Ot V12.59 HX- CIRCULATORY SYST DIS,NEC 06/10/2017 Ot V15.82 HISTORY OF TOBACCO USE 06/10/2017 JENNIFER WOLFE MD Ot V76.12 OTH SCREEN MAMMO-MALIGN NEOPLASM OF [place] 06/10/2017 JENNIFER WOLFE MD Ot 272.4 HYPERLIPIDEMIA NEC/NOS 06/10/2017 JENNIFER WOLFE MD Ot 414.01 CORONARY ATHEROSCLEROSIS OF [place] CORON 06/10/2017 JENNIFER WOLFE MD Ot 786.50 CHEST PAIN NOS 06/10/2017 JENNIFER WOLFE MD Ot 789.00 ABDOMINAL PAIN, UNSPECIFIED SITE 06/10/2017 YANETH LAZO, JENNIFER Hernandez Ot 793.11 SOLITARY PULMONARY NODULE 06/10/2017 YANETH LAZO, JENNIFER Hernandez Ot 577.9 PANCREATIC DISEASE NOS 06/10/2017 YANTEH LAZO, JENNIFER Hernandez Ot 577.9 PANCREATIC DISEASE NOS 06/10/2017 YANETH LAZO, JENNIFER Hernandez Ot 577.9 PANCREATIC DISEASE NOS 06/10/2017 KENNETH LAZO, INGRID S Ot 157.9 MALIG LEX PANCREAS NOS 06/10/2017 KENNETH LAZO, INGRID S Ot V72.84 EXAM PRE-OPERATIVE NOS 06/10/2017 FARRIS, HILAH S SPRING BENDER Ot 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 PANCREAS HEAD 06/10/2017 FARRIS, HILAH S SPRING B[employer]ER Ot 196.9 MAL LEX LYMPH NODE NOS 06/10/2017 FARRISMORENITA Mckeon S SPRING B[employer]ER Ot V58.69 OTH MED,LT,CURRENT USE 06/10/2017 Ot 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 PANCREAS HEAD 06/10/2017 Ot 196.9 MAL LEX LYMPH NODE NOS 06/10/2017 Ot 285.9 ANEMIA NOS 06/10/2017 Ot 288.60 LEUKOCYTOSIS , UNSPECIFIED 06/10/2017 Ot 780.60 FEVER, UNSPECIFIED 06/10/2017 Ot 782.4 JAUNDICE NOS 06/10/2017 Ot V58.69 OTH MED,LT, CURRENT USE 06/10/2017 Ot 288.60 LEUKOCYTOSIS , UNSPECIFIED 06/10/2017 Ot 780.60 FEVER, UNSPECIFIED 06/10/2017 MORENITA FARRIS S SPRING B[employer]ER Ot 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 PANCREAS HEAD 06/10/2017 FARRIS, HILAH S SPRING [employer]ER Ot 196.9 MAL LEX LYMPH NODE NOS 06/10/2017 FARRIS HILAH S SPRING [employer]ER Ot 285.9 ANEMIA NOS 06/10/2017 FARRISGERAAH S [employer]ING B[employer]ER Ot V58.69 OTH MED,LT,CURRENT USE 06/10/2017 FARRISGERAAH S SPRING B[employer]ER Ot 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 PANCREAS HEAD 06/10/2017 FARRIS HILAH S SPRING B[employer]ER Ot 196.9 MAL LEX LYMPH NODE NOS 06/10/2017 AFRRIS HILAH S [employer]ER Ot 285.9 ANEMIA NOS 06/10/2017 FARRISMORENITA Mckeon S SPRING B[employer]ER Ot V58.69 OTH MED,LT,CURRENT USE 06/10/2017 MORENITA FARRIS SPRING [employer]ER Ot 157.9 MALIG LEX PANCREAS NOS 06/10/2017 ROBERT SWENSON MD Ot 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 PANCREAS HEAD 06/10/2017 ROBERT SWENSON MD Ot 196.9 MAL LEX LYMPH NODE NOS 06/10/2017 ROBERT SWENSON MD Ot 285.9 ANEMIA NOS 06/10/2017 ROBERT SWENSON MD Ot V58.69 OTH MED,LT,CURRENT USE 06/10/2017 MORENITA FARRIS SPRING B[employer]ER Ot 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 PANCREAS HEAD 06/10/2017 MORENITA FARRIS S SPRING [employer]ER Ot 196.9 MAL LEX LYMPH NODE NOS 06/10/2017 MORENITA FARRIS SPRING [employer]ER Ot 285.9 ANEMIA NOS 06/10/2017 MORENITA FARRIS SPRING [employer]ER Ot V58.69 OTH MED,LT,CURRENT USE 06/10/2017 MORENITA FARRIS SPRING [employer]ER Ot 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 PANCREAS HEAD 06/10/2017 MORENITA FARRIS S SPRING [employer]ER Ot 196.9 MAL LEX LYMPH NODE NOS 06/10/2017 MORENITA FARRIS S SPRING B[employer]ER Ot 285.9 ANEMIA NOS 06/10/2017 MORENITA FARRIS SPRING [employer]ER Ot V58.69 OTH MED,LT,CURRENT USE 06/10/2017 MORENITA FARRIS SPRING [employer]ER Ot 157.9 MALIG LEX PANCREAS NOS 06/10/2017 MORENITA FARRIS S SPRING B[employer]ER Ot C25.0 MALIGNANT NEOPLASM OF HEAD OF PANCREAS 06/10/2017 MORENITA FARRIS SPRING B[employer]ER Ot 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 06/10/2017 MORENITA FARRIS SPRING B[employer]ER Ot Z79.899 OTHER ALF (CURRENT) DRUG THERAPY 06/10/2017 MORENITA FARRIS SPRING [employer]ER Ot C25.0 MALIGNANT NEOPLASM OF HEAD OF PANCREAS 06/10/2017 MORENITA FARRIS SPRING B[employer]ER Ot 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 06/10/2017 MORENITA FARRIS SPRING B[employer]ER Ot C25.0 MALIGNANT NEOPLASM OF HEAD OF PANCRE[place] 06/10/2017 MORENITA FARRIS SPRING B[employer]ER Ot 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 06/10/2017 MORENITA FARRIS S SPRING B[employer]ER Ot C25.0 MALIGNANT NEOPLASM OF HEAD OF PANCREAS 06/10/2017 MORENITA FARRIS SPRING BENDER Ot 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 06/10/2017 MORENITA FARRIS SPRING B[employer]ER Ot 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 06/10/2017 MORENITA FARRIS SPRING BENDER Ot T45.1X5A ADVERSE EFFECT OF ANTINEOPLASTIC AND IMM 06/10/2017 MORENITA FARRIS SPRING B[employer]ER Ot 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 06/10/2017 MORENITA FARRIS SPRING [employer]ER Ot C25.0 MALIGNANT NEOPLASM OF HEAD OF PANCREAS 06/10/2017 MORENITA FARRIS SPRING B[employer]ER Ot C25.0 MALIGNANT NEOPLASM OF HEAD OF PANCREAS 06/10/2017 MORENITA FARRIS SPRING B[employer]ER Ot 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 06/10/2017 MORENITA FARRIS SPRING BENDER Ot I10 ESSENTIAL (PRIMARY) HYPERTENSION 06/10/2017 MORENITA FARRIS SPRING B[employer]ER Ot Z79.899 OTHER ALF (CURRENT) DRUG THERAPY 06/10/2017 YANETH LAZO, JENNIFER Hernandez Ot R31.9 HEMATURIA, UNSPECIFIED 06/10/2017 LOREREENA CONROYHER L SPRING [employer]ER Ot I10 ESSENTIAL (PRIMARY) HYPERTENSION 06/10/2017 BAIMARYCARMEN ANCELMO L SPRING BENDER Ot I25.10 ATHSCL HEART DISEASE OF [place] CORONARY 06/10/2017 LOREMAREENAANCELMO L SPRING BENDER Ot 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 06/10/2017 BAIMAREENAANCELMO L SPRING BENDER Ot I70.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 [facility] 06/10/2017 LOREMA ANCELMO L SPRING BENDER Ot R00.2 PALPITATIONS 06/10/2017 BAIMA ANCELMO L SPRING BENDER Ot I10 ESSENTIAL (PRIMARY) HYPERTENSION 06/10/2017 BAIMA ANCELMO L SPRING BENDER Ot I25.10 ATHSCL HEART DISEASE OF [place] CORONARY 06/10/2017 BAIMA ANCELMO L SPRING BENDER Ot 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 06/10/2017 BAIMA ANCELMO L SPRING BENDER Ot I70.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M W INTRMT 06/10/2017 BAIMARYCARMEN ANCELMO L SPRING BENDER Ot R00.2 PALPITATIONS 06/10/2017 GERA FARRISAH S SPRING BENDER Ot C25.0 MALIGNANT NEOPLASM OF HEAD OF PANCREAS 06/10/2017 GERA FARRISLATA Mckeon SPRING BENDER Ot 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 06/10/2017 MOREINTA FARRIS SPRING BENDER Ot I10 ESSENTIAL (PRIMARY) HYPERTENSION 06/10/2017 MORENITA FARRIS SPRING BENDER Ot R74.8 ABNORMAL LEVELS OF OTHER SERUM ENZYMES 06/10/2017 MORENITA FARRIS SPRING BENDER Ot Z79.899 OTHER ALF (CURRENT) DRUG THERAPY 06/10/2017 MORENITA FARRIS SPRING BENDER Ot C25.0 MALIGNANT NEOPLASM OF HEAD OF PANCREAS 06/10/2017 MORENITA FARRIS S SPRING BENDER Ot C25.0 MALIGNANT NEOPLASM OF HEAD OF PANCREAS 06/10/2017 MORENITA FARRIS SPRING BENDER Ot 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 06/10/2017 MORENITA FARRIS SPRING BENDER Ot I10 ESSENTIAL (PRIMARY) HYPERTENSION 06/10/2017 MORENITA FARRIS SPRING BENDER Ot R74.8 ABNORMAL LEVELS OF OTHER SERUM ENZYMES 06/10/2017 MORENITA FARRIS SPRING BENDER Ot 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 06/10/2017 MORENITA FARRIS SPRING BENDER Ot C25.0 MALIGNANT NEOPLASM OF HEAD OF PANCREAS 06/10/2017 MORENITA FARRIS SPRING BENDER Ot 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 06/10/2017 MORENITA FARRIS SPRING BENDER Ot D64.9 ANEMIA, UNSPECIFIED 06/10/2017 MORENITA FARRIS SPRING BENDER Ot I10 ESSENTIAL (PRIMARY) HYPERTENSION 06/10/2017 MORENITA FARRIS SPRING BENDER Ot 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 06/10/2017 MORENITA FARRIS SPRING BENDER Ot C25.0 MALIGNANT NEOPLASM OF HEAD OF PANCREAS 06/10/2017 MORENITA FARRIS SPRING BENDER Ot C25.0 MALIGNANT NEOPLASM OF HEAD OF PANCREAS 06/10/2017 MORENITA FARRIS SPRING BENDER Ot C25.0 MALIGNANT NEOPLASM OF HEAD OF PANCREAS 06/10/2017 MORENITA FARRIS SPRING BENDER Ot R22.2 LOCALIZED SWELLING, MASS AND LUMP, TRUNK 06/10/2017 MORENITA FARRIS SPRING BENDER Ot R59.0 LOCALIZED ENLARGED LYMPH NODES 06/10/2017 MORENITA FARRIS SPRING BENDER Ot R91.8 OTHER NONSPECIFIC ABNORMAL FINDING OF [place] 06/10/2017 XIN PATE Ot C25.0 MALIGNANT NEOPLASM OF HEAD OF PANCREAS 06/10/2017 XIN PATE Ot 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 06/10/2017 XIN PATE Ot D64.9 ANEMIA, UNSPECIFIED 06/10/2017 XIN PATE Ot 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 06/10/2017 FARRIS MORENITA Mckeon SPRING BENDER Ot C25.0 MALIGNANT NEOPLASM OF HEAD OF PANCREAS 06/10/2017 FARRISGERALATA Mike SPRING BENDER Ot M79.605 PAIN IN LEFT LEG 06/10/2017 GERA FARRISLATA Mike SPRING BENDER Ot M79.89 OTHER SPECIFIED SOFT TISSUE DISORDERS 06/10/2017 MORENITA FARRIS Mike SPRING BENDER Ot C25.0 MALIGNANT NEOPLASM OF HEAD OF PANCREAS 06/10/2017 FARRIS MORENITA Mike SPRING BENDER Ot R91.1 SOLITARY PULMONARY NODULE 06/11/2017 XIN PATE Ot C25.0 MALIGNANT NEOPLASM OF HEAD OF PANCREAS 06/11/2017 XIN PATE Ot 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 06/11/2017 XIN PATE Ot D64.9 ANEMIA, UNSPECIFIED 06/11/2017 XIN PATE N Ot 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 06/11/2017 Ot 401.9 HYPERTENSION NOS 06/11/2017 Ot 785.1 PALPITATIONS 06/11/2017 Ot V12.59 HX- CIRCULATORY SYST DIS,NEC 06/11/2017 Ot V15.82 HISTORY OF TOBACCO USE 06/11/2017 YANETH LAZO, JENNIFER Hernandez Ot V76.12 OTH SCREEN MAMMO-MALIGN NEOPLASM OF [place] 06/11/2017 YANETH LAZO, JENNIFER Hernandez Ot 272.4 HYPERLIPIDEMIA NEC/NOS 06/11/2017 YANETH LAZO, JENNIFER Hernandez Ot 414.01 CORONARY ATHEROSCLEROSIS OF [place] CORON 06/11/2017 JENNIFER WOLFE MD Ot 786.50 CHEST PAIN NOS 06/11/2017 JENNIFER WOLFE MD Ot 789.00 ABDOMINAL PAIN, UNSPECIFIED SITE 06/11/2017 JENNIFER WOLFE MD Ot 793.11 SOLITARY PULMONARY NODULE 06/11/2017 JENNIFER WOLFE MD Ot 577.9 PANCREATIC DISEASE NOS 06/11/2017 YANETH LAZO, JENNIFER Hernandez Ot 577.9 PANCREATIC DISEASE NOS 06/11/2017 YANETH LAZO, JENNIFER Hernandez Ot 577.9 PANCREATIC DISEASE NOS 06/11/2017 KENNETH LAZO, INGRID S Ot 157.9 MALIG LEX PANCREAS NOS 06/11/2017 KENNETH LAZO, INGRID S Ot V72.84 EXAM PRE-OPERATIVE NOS 06/11/2017 FARRIS, HILAH S SPRING BENDER Ot 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 PANCREAS HEAD 06/11/2017 FARRIS HILAH S SPRING BENDER Ot 196.9 MAL LEX LYMPH NODE NOS 06/11/2017 FARRIS HILAH S SPRING BENDER Ot V58.69 OTH MED,LT,CURRENT USE 06/11/2017 Ot 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 PANCREAS HEAD 06/11/2017 Ot 196.9 MAL LEX LYMPH NODE NOS 06/11/2017 Ot 285.9 ANEMIA NOS 06/11/2017 Ot 288.60 LEUKOCYTOSIS , UNSPECIFIED 06/11/2017 Ot 780.60 FEVER, UNSPECIFIED 06/11/2017 Ot 782.4 JAUNDICE NOS 06/11/2017 Ot V58.69 OTH MED,LT, CURRENT USE 06/11/2017 Ot 288.60 LEUKOCYTOSIS , UNSPECIFIED 06/11/2017 Ot 780.60 FEVER, UNSPECIFIED 06/11/2017 FARRIS HILAH S SPRING BENDER Ot 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 PANCREAS HEAD 06/11/2017 FARRIS, HILAH S SPRING BENDER Ot 196.9 MAL LEX LYMPH NODE NOS 06/11/2017 FARRIS HILAH S SPRING BENDER Ot 285.9 ANEMIA NOS 06/11/2017 FARRISGERAAH S SPRING BENDER Ot V58.69 OTH MED,LT,CURRENT USE 06/11/2017 FARRIS HILAH S SPRING BENDER Ot 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 PANCREAS HEAD 06/11/2017 FARRIS HILAH S SPRING BENDER Ot 196.9 MAL LEX LYMPH NODE NOS 06/11/2017 FARRIS, HILAH S SPRING BENDER Ot 285.9 ANEMIA NOS 06/11/2017 FARRIS HILAH S SPRING BENDER Ot V58.69 OTH MED,LT,CURRENT USE 06/11/2017 FARRIS HILAH S SPRING BENDER Ot 157.9 MALIG LEX PANCREAS NOS 06/11/2017 MESSI LAZO, ROBERT Ot 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 PANCREAS HEAD 06/11/2017 ROBERT SWENSON MD Ot 196.9 MAL LEX LYMPH NODE NOS 06/11/2017 ROBERT SWENSON MD Ot 285.9 ANEMIA NOS 06/11/2017 ROBERT SWENSON MD Ot V58.69 OTH MED,LT,CURRENT USE 06/11/2017 MORENITA FARRIS SPRING BENDER Ot 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 PANCREAS HEAD 06/11/2017 MORENITA FARRIS S SPRING BENDER Ot 196.9 MAL LEX LYMPH NODE NOS 06/11/2017 MORENITA FARRIS S SPRING BENDER Ot 285.9 ANEMIA NOS 06/11/2017 MORENITA FARRIS S SPRING BENDER Ot V58.69 OTH MED,LT,CURRENT USE 06/11/2017 MORENITA FARRIS SPRING BENDER Ot 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 PANCREAS HEAD 06/11/2017 MORENITA FARRIS S SPRING BENDER Ot 196.9 MAL LEX LYMPH NODE NOS 06/11/2017 MORENITA FARRIS S SPRING BENDER Ot 285.9 ANEMIA NOS 06/11/2017 MORENITA FARRIS S SPRING BENDER Ot V58.69 OTH MED,LT,CURRENT USE 06/11/2017 MORENITA FARRIS S SPRING BENDER Ot 157.9 MALIG LEX PANCREAS NOS 06/11/2017 MORENITA FARRIS S SPRING BENDER Ot C25.0 MALIGNANT NEOPLASM OF HEAD OF PANCREAS 06/11/2017 MORENITA FARRIS SPRING BENDER Ot 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 06/11/2017 MORENITA FARRIS SPRING BENDER Ot Z79.899 OTHER ALF (CURRENT) DRUG THERAPY 06/11/2017 MORENITA FARRIS SPRING BENDER Ot C25.0 MALIGNANT NEOPLASM OF HEAD OF PANCREAS 06/11/2017 MORENITA FARRIS SPRING BENDER Ot 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 06/11/2017 MORENITA FARRIS S SPRING BENDER Ot C25.0 MALIGNANT NEOPLASM OF HEAD OF PANCREAS 06/11/2017 MORENITA FARRIS SPRING BENDER Ot Z79.899 OTHER ALF (CURRENT) DRUG THERAPY 06/11/2017 MORENITA FARRIS SPRING BENDER Ot C25.0 MALIGNANT NEOPLASM OF HEAD OF PANCREAS 06/11/2017 MORENITA FARRIS SPRING BENDER Ot 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 06/11/2017 MORENITA FARRIS SPRING BENDER Ot 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 06/11/2017 GERA FARRISLATA Mckeon SPRING BENDER Ot T45.1X5A ADVERSE EFFECT OF ANTINEOPLASTIC AND IMM 06/11/2017 FARRISGERALATA Mckeon SPRING BENDER Ot 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 06/11/2017 MORENITA FARRIS SPRING BENDER Ot C25.0 MALIGNANT NEOPLASM OF HEAD OF PANCREAS 06/11/2017 GERA FARRISLATA Mckeon SPRING BENDER Ot C25.0 MALIGNANT NEOPLASM OF HEAD OF PANCREAS 06/11/2017 KALEIGH MORENITA Mckeon SPRING BENDER Ot 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 06/11/2017 MORENITA FARRIS Mike SPRING BENDER Ot I10 ESSENTIAL (PRIMARY) HYPERTENSION 06/11/2017 MORENITA FARRIS SPRING BENDER Ot Z79.899 OTHER ALF (CURRENT) DRUG THERAPY 06/11/2017 YANETH LAZO, JENNIFER Hernandez Ot R31.9 HEMATURIA, UNSPECIFIED 06/11/2017 LOREMARYCARMENANCELMO SPRING BENDER Ot I10 ESSENTIAL (PRIMARY) HYPERTENSION 06/11/2017 LOREMARYCARMEN ANCELMO L SPRING BENDER Ot I25.10 ATHSCL HEART DISEASE OF [place] CORONARY 06/11/2017 LOREREENA CONROYHER L SPRING BENDER Ot 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 06/11/2017 LOREMA ANCELMO L SPRING BENDER Ot I70.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 [facility] 06/11/2017 LOREANCELMO CONROY L SPRING BENDER Ot R00.2 PALPITATIONS 06/11/2017 DONI ANCELMO L SPRING BENDER Ot I10 ESSENTIAL (PRIMARY) HYPERTENSION 06/11/2017 LOREMARYCARMEN ANCELMO L SPRING BENDER Ot I25.10 ATHSCL HEART DISEASE OF [place] CORONARY 06/11/2017 LOREMA ANCELMO L SPRING BENDER Ot 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 06/11/2017 LOREMA ANCELMO L SPRING BENDER Ot I70.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 06/11/2017 LOREREENA CONROYHER L SPRING BENDER Ot R00.2 PALPITATIONS 06/11/2017 MORENITA FARRIS SPRING BENDER Ot C25.0 MALIGNANT NEOPLASM OF HEAD OF PANCREAS 06/11/2017 MORENITA FARRIS SPRING BENDER Ot 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 06/11/2017 MORENITA FARRIS S SPRING BENDER Ot I10 ESSENTIAL (PRIMARY) HYPERTENSION 06/11/2017 FARRISMORENITA SPRING BENDER Ot R74.8 ABNORMAL LEVELS OF OTHER SERUM ENZYMES 06/11/2017 GERA FARRISLATA Mckeon SPRING BENDER Ot Z79.899 OTHER ALF (CURRENT) DRUG THERAPY 06/11/2017 GERA FARRISLATA Mckeon SPRING BENDER Ot C25.0 MALIGNANT NEOPLASM OF HEAD OF PANCREAS 06/11/2017 GERA FARRISLATA Mckeon SPRING BENDER Ot C25.0 MALIGNANT NEOPLASM OF HEAD OF PANCREAS 06/11/2017 KALEIGH MORENITA Mckeon SPRING BENDER Ot 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 06/11/2017 GERA FARRISLATA Mckeon SPRING BENDER Ot I10 ESSENTIAL (PRIMARY) HYPERTENSION 06/11/2017 GERA FARRISLATA Mckeon SPRING BENDER Ot R74.8 ABNORMAL LEVELS OF OTHER SERUM ENZYMES 06/11/2017 GERA FARRISLATA Mckeon SPRING BENDER Ot Z79.899 OTHER ALF (CURRENT) DRUG THERAPY 06/11/2017 MORENITA FARRIS Mike SPRING BENDER Ot C25.0 MALIGNANT NEOPLASM OF HEAD OF PANCREAS 06/11/2017 GERA FARRISLATA Mckeon SPRING BENDER Ot 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 06/11/2017 GERA FARRISLATA Mckeon SPRING BENDER Ot D64.9 ANEMIA, UNSPECIFIED 06/11/2017 MORENITA FARRIS Mike SPRING BENDER Ot I10 ESSENTIAL (PRIMARY) HYPERTENSION 06/11/2017 GERA FARRISLATA Mckeon SPRING BENDER Ot 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 06/11/2017 MORENITA FARRIS Mike SPRING BENDER Ot C25.0 MALIGNANT NEOPLASM OF HEAD OF PANCREAS 06/11/2017 MORENITA FARRIS S SPRING BENDER Ot C25.0 MALIGNANT NEOPLASM OF HEAD OF PANCREAS 06/11/2017 KALEIGH MORENITA Mckeon SPRING BENDER Ot C25.0 MALIGNANT NEOPLASM OF HEAD OF PANCREAS 06/11/2017 MORENITA FARRIS S SPRING BENDER Ot R22.2 LOCALIZED SWELLING, MASS AND LUMP, TRUNK 06/11/2017 MORENITA FARRIS S SPRING BENDER Ot R59.0 LOCALIZED ENLARGED LYMPH NODES 06/11/2017 MORENITA FARRIS S SPRING BENDER Ot R91.8 OTHER NONSPECIFIC ABNORMAL FINDING OF [place] 06/11/2017 XIN PATE Ot C25.0 MALIGNANT NEOPLASM OF HEAD OF PANCREAS 06/11/2017 XIN PATE N Ot 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 06/11/2017 XIN PATE Lilli Ot D64.9 ANEMIA, UNSPECIFIED 06/11/2017 XIN PATE Lilli Ot Z79.899 OTHER ALF (CURRENT) DRUG THERAPY 06/11/2017 MORENITA FARRIS SPRING BENDER Ot C25.0 MALIGNANT NEOPLASM OF HEAD OF PANCREAS 06/11/2017 FARRISMORENITA Mckeon SPRING BENDER Ot M79.605 PAIN IN LEFT LEG 06/11/2017 FARRISMORENITA Mckeon S SPRING BENDER Ot M79.89 OTHER SPECIFIED SOFT TISSUE DISORDERS 06/11/2017 MORENITA FARRIS SPRING BENDER Ot C25.0 MALIGNANT NEOPLASM OF HEAD OF PANCRE[place] 06/11/2017 MORENITA FARRIS SPRING BENDER Ot R91.1 SOLITARY PULMONARY NODULE 06/11/2017 FARRISMORENITA Mckeon SPRING BENDER Ot C25.0 MALIGNANT NEOPLASM OF HEAD OF PANCREAS 06/11/2017 FARRIS MORENITA Mckeon SPRING BENDER Ot 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 06/11/2017 FARRIS MORENITA Mckeon SPRING BENDER Ot D64.9 ANEMIA, UNSPECIFIED 06/11/2017 MORENITA FARRIS SPRING BENDER Ot Z79.899 OTHER ALF (CURRENT) DRUG THERAPY 06/12/2017 MORENITA FARRIS SPRING BENDER Ot C25.0 MALIGNANT NEOPLASM OF HEAD OF PANCREAS 06/12/2017 MORENITA FARRIS SPRING BENDER Ot 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 06/12/2017 FARRIS MORENITA Mckeon SPRING BENDER Ot D64.9 ANEMIA, UNSPECIFIED 06/12/2017 FARRISMORENITA Mckeon SPRING BENDER Ot Z79.899 OTHER ALF (CURRENT) DRUG THERAPY 06/16/2017 XIN PATE N Ot C25.0 MALIGNANT NEOPLASM OF HEAD OF PANCREAS 06/16/2017 XIN PATE Lilli Ot 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 06/16/2017 XIN PATE N Ot D64.9 ANEMIA, UNSPECIFIED 06/16/2017 XIN PATE N Ot M79.605 PAIN IN LEFT LEG 06/16/2017 HERLINDA, XIN Reeder Ot M79.89 OTHER SPECIFIED SOFT TISSUE DISORDERS 06/16/2017 XIN PATE Lilli Ot Z51.11 ENCOUNTER FOR ANTINEOPLASTIC CHEMOTHERAP 06/16/2017 XIN PATE N Ot Z79.899 OTHER ALF (CURRENT) DRUG THERAPY 07/09/2017 MORENITA FARRIS SPRING BENDER Ot C25.0 MALIGNANT NEOPLASM OF HEAD OF PANCRE[place] 07/09/2017 MORENITA FARRIS SPRING BENDER Ot 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 07/09/2017 MORENITA FARRIS SPRING BENDER Ot D64.9 ANEMIA, UNSPECIFIED 07/09/2017 FARRISMORENITA Mckeon SPRING BENDER Ot 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 07/17/2017 HERLINDAXIN BRAUN N Ot C25.0 MALIGNANT NEOPLASM OF HEAD OF PANCREAS 07/17/2017 HERLINDAXIN N Ot 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 07/17/2017 HERLINDAXIN N Ot D64.9 ANEMIA, UNSPECIFIED 07/17/2017 HERLINDAXIN N Ot 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 08/06/2017 HERLINDAXIN N Ot C25.0 MALIGNANT NEOPLASM OF HEAD OF PANCREAS 08/06/2017 HERLINDA BOBAN N Ot 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 08/06/2017 HERLINDAXIN N Ot D64.9 ANEMIA, UNSPECIFIED 08/06/2017 HERLINDA BOBAN N Ot Z79.899 OTHER ALF (CURRENT) DRUG THERAPY 08/11/2017 HERLINDAXIN N Ot C25.0 MALIGNANT NEOPLASM OF HEAD OF PANCREAS 08/11/2017 HERLINDAXIN N Ot 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 08/11/2017 HERLINDA, BOBAN N Ot D64.9 ANEMIA, UNSPECIFIED 08/11/2017 HERLINDAMARILUAN N Ot 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 08/14/2017 HERLINDAXIN N Ot C25.0 MALIGNANT NEOPLASM OF HEAD OF PANCREAS 08/14/2017 HERLINDA, BOBAN N Ot 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 08/14/2017 HERLINDA BOBAN N Ot D64.9 ANEMIA, UNSPECIFIED 08/14/2017 HERLINDA BOBAN N Ot Z79.899 OTHER ALF (CURRENT) DRUG THERAPY 08/23/2017 XIN PATE Ot C25.0 MALIGNANT NEOPLASM OF HEAD OF PANCREAS 08/23/2017 XIN PATE Ot 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 08/23/2017 XIN PATE Ot D64.9 ANEMIA, UNSPECIFIED 08/23/2017 XIN PATE Ot 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 08/27/2017 XIN PATE Ot C25.0 MALIGNANT NEOPLASM OF HEAD OF PANCREAS 08/27/2017 XIN PATE Ot 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 08/27/2017 XIN PATE Ot D64.9 ANEMIA, UNSPECIFIED 08/27/2017 XIN PATE Ot M79.605 PAIN IN LEFT LEG 08/27/2017 XIN PATE N Ot M79.89 OTHER SPECIFIED SOFT TISSUE DISORDERS 08/27/2017 XIN PATE Ot Z51.11 ENCOUNTER FOR ANTINEOPLASTIC CHEMOTHERAP 08/27/2017 XIN PATE Lilli Ot 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 09/08/2017 JOSE WESTON MD Ot C25.0 MALIGNANT NEOPLASM OF HEAD OF PANCREAS 09/08/2017 JOSE WESTON MD Ot C77.9 SECONDARY AND UNSP MALIGNANT NEOPLASM OF 09/08/2017 JOSE WESTON MD Ot D64.9 ANEMIA, UNSPECIFIED 09/08/2017 JOSE WESTON MD Ot Z79.899 OTHER ALF (CURRENT) DRUG THERAPY 09/13/2017 MAYNOR BONNER MD Ot K21.9 GASTRO-ESOPHAGEAL REFLUX DISEASE WITHOUT 09/13/2017 MAYNOR BONNER MD Ot M47.9 SPONDYLOSIS, UNSPECIFIED 09/13/2017 MAYNOR BONNER MD Ot R10.13 EPIGASTRIC PAIN 09/13/2017 MAYNOR BONNER MD Ot R53.1 WEAKNESS 09/13/2017 MAYNOR BONNER MD Ot Z80.6 FAMILY HISTORY OF LEUKEMIA 09/13/2017 MAYNOR BONNER MD Ot Z82.49 FAMILY HX OF ISCHEM HEART DIS AND OTH DI 09/13/2017 MAYNOR BONNER MD Ot Z85.07 PERSONAL HISTORY OF MALIGNANT NEOPLASM O 09/13/2017 MAYNOR BONNER MD Ot Z86.718 PERSONAL HISTORY OF OTHER VENOUS THROMBO 09/13/2017 MAYNOR BONNER MD Ot Z87.891 PERSONAL HISTORY OF NICOTINE DEPENDENCE 09/13/2017 MAYNOR BONNER MD Ot Z90.49 ACQUIRED ABSENCE OF OTHER SPECIFIED PART 09/13/2017 MAYNOR BONNER MD Ot Z90.710 ACQUIRED ABSENCE OF BOTH CERVIX AND UTER 09/13/2017 MAYNOR BONNER MD Ot Z92.21 PERSONAL HISTORY OF ANTINEOPLASTIC CHEMO 09/13/2017 MAYNOR BONNER MD Ot Z92.3 PERSONAL HISTORY OF IRRADIATION 10/22/2017 JOSE WESTON MD Ot C25.0 MALIGNANT NEOPLASM OF HEAD OF PANCREAS 10/22/2017 JOSE WESTON MD Ot 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 10/22/2017 JOSE WESTON MD Ot D64.9 ANEMIA, UNSPECIFIED 10/22/2017 JOSE WESTON MD Ot I10 ESSENTIAL (PRIMARY) HYPERTENSION 10/22/2017 JOSE WESTON MD Ot I25.10 ATHSCL HEART DISEASE OF [place] CORONARY 10/22/2017 JOSE WESTON MD Ot K21.9 GASTRO-ESOPHAGEAL REFLUX DISEASE WITHOUT 10/22/2017 JOES WESTON MD Ot M81.0 AGE-RELATED OSTEOPOROSIS W/O CURRENT PAT 10/22/2017 JOSE WESTON MD Ot R91.1 SOLITARY PULMONARY NODULE 10/22/2017 JOSE WESTON MD Ot Z23 ENCOUNTER FOR IMMUNIZATION 10/22/2017 JOSE WESTON MD Ot 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 10/22/2017 JOSE WESTON MD Ot Z92.21 PERSONAL HISTORY OF ANTINEOPLASTIC CHEMO 10/28/2017 JOSE WESTON MD Ot C25.0 MALIGNANT NEOPLASM OF HEAD OF PANCREAS 10/28/2017 JOSE WESTON MD Ot 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 10/28/2017 JOSE WESTON MD Ot D64.9 ANEMIA, UNSPECIFIED 10/28/2017 JOSE WESTON MD Ot I10 ESSENTIAL (PRIMARY) HYPERTENSION 10/28/2017 JOSE WESTON MD Ot I25.10 ATHSCL HEART DISEASE OF [place] CORONARY 10/28/2017 JOSE WESTON MD Ot K21.9 GASTRO-ESOPHAGEAL REFLUX DISEASE WITHOUT 10/28/2017 JOSE WESTON MD Ot M81.0 AGE-RELATED OSTEOPOROSIS W/O CURRENT PAT 10/28/2017 JOSE WESTON MD Ot R91.1 SOLITARY PULMONARY NODULE 10/28/2017 JOSE WESTON MD Ot Z23 ENCOUNTER FOR IMMUNIZATION 10/28/2017 JOSE WESTON MD Ot 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 10/28/2017 JOSE WESTON MD Ot Z92.21 PERSONAL HISTORY OF ANTINEOPLASTIC CHEMO 10/29/2017 JOSE WESTON MD Ot C25.0 MALIGNANT NEOPLASM OF HEAD OF PANCREAS 10/29/2017 JOSE WESTON MD Ot 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 10/29/2017 JOSE WESTON MD Ot D64.9 ANEMIA, UNSPECIFIED 10/29/2017 JOSE WESTON MD Ot I10 ESSENTIAL (PRIMARY) HYPERTENSION 10/29/2017 JOSE WESTON MD Ot I25.10 ATHSCL HEART DISEASE OF [place] CORONARY 10/29/2017 JOSE WESTON MD Ot K21.9 GASTRO-ESOPHAGEAL REFLUX DISEASE WITHOUT 10/29/2017 JOSE WESTON MD Ot M81.0 AGE-RELATED OSTEOPOROSIS W/O CURRENT PAT 10/29/2017 JOSE WESTON MD Ot R91.1 SOLITARY PULMONARY NODULE 10/29/2017 JOSE WESTON MD Ot Z23 ENCOUNTER FOR IMMUNIZATION 10/29/2017 JOSE WESTON MD Ot Z79.899 OTHER ALF (CURRENT) DRUG THERAPY 10/29/2017 JOSE WESTON MD Ot Z92.21 PERSONAL HISTORY OF ANTINEOPLASTIC CHEMO 10/29/2017 XIN PATE Ot C25.0 MALIGNANT NEOPLASM OF HEAD OF PANCREAS 10/29/2017 XIN PATE Ot 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 10/29/2017 XIN PATE Ot D64.9 ANEMIA, UNSPECIFIED 10/29/2017 XIN PATE Ot I10 ESSENTIAL (PRIMARY) HYPERTENSION 10/29/2017 XIN PATE Ot I25.10 ATHSCL HEART DISEASE OF [place] CORONARY 10/29/2017 XIN PATE Ot K21.9 GASTRO-ESOPHAGEAL REFLUX DISEASE WITHOUT 10/29/2017 XIN PATE Ot M81.0 AGE-RELATED OSTEOPOROSIS W/O CURRENT PAT 10/29/2017 XIN PATE Ot R91.1 SOLITARY PULMONARY NODULE 10/29/2017 XIN PATE Ot Z23 ENCOUNTER FOR IMMUNIZATION 10/29/2017 XIN PATE Ot Z79.899 OTHER ALF (CURRENT) DRUG THERAPY 10/29/2017 XIN PATE Ot Z92.21 PERSONAL HISTORY OF ANTINEOPLASTIC CHEMO 11/22/2017 XIN PATE Ot C25.0 MALIGNANT NEOPLASM OF HEAD OF PANCREAS 11/22/2017 XIN PATE Lilli Ot 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 11/22/2017 XIN PATE Lilli Ot D64.9 ANEMIA, UNSPECIFIED 11/22/2017 XIN PATE Lilli Ot I10 ESSENTIAL (PRIMARY) HYPERTENSION 11/22/2017 XIN PATE Lilli Ot I25.10 ATHSCL HEART DISEASE OF [place] CORONARY 11/22/2017 XIN PATE Lilli Ot K21.9 GASTRO-ESOPHAGEAL REFLUX DISEASE WITHOUT 11/22/2017 XIN PATE Lilli Ot M81.0 AGE-RELATED OSTEOPOROSIS W/O CURRENT PAT 11/22/2017 XIN PATE Lilli Ot R91.1 SOLITARY PULMONARY NODULE 11/22/2017 XIN PATE Lilli Ot Z23 ENCOUNTER FOR IMMUNIZATION 11/22/2017 XIN PATE Lilli Ot 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 11/22/2017 XIN PATE Ot Z92.21 PERSONAL HISTORY OF ANTINEOPLASTIC CHEMO Procedures Code Description Performed By Performed On 88.42 CONTRAST AORTOGRAM 11/19/2011 88.48 CONTRAST ARTERIOGRAM-LEG 11/19/2011 38.48 LEG ARTERY RESEC W REPLA 11/20/2011 39.29 VASC SHUNT BYPASS NEC 11/20/2011 Results Test Result Range Complete blood count (CBC) with automated white blood cell (WBC) differential - 01/23/17 16:58 Blood leukocytes automated count (number/volume) 9.3 10*3/uL 4.3-11.0 Blood erythrocytes automated count (number/volume) 3.20 10*6/uL 4.35-5.85 Venous blood hemoglobin measurement (mass/volume) 10.1 [...] Automated blood platelet mean volume measurement 9.4 [foz_us] 7.4-10.4 Automated blood neutrophils/100 leukocytes 74 % [...] Serum or plasma sodium measurement (moles/volume) 134 mmol/L 135-145 Serum or plasma potassium measurement (moles/volume) 5.0 mmol/L 3.6-5.0 Serum or plasma chloride measurement (moles/volume) 104 mmol/L 98-107 Carbon dioxide 20 mmol/L 21-32 Serum or plasma anion gap determination (moles/volume) 10 mmol/L 5-14 Serum or plasma urea nitrogen measurement (mass/volume) 23 mg/dL 7-18 Serum or plasma creatinine measurement (mass/volume) 0.95 mg/dL 0.60-1.30 Serum or plasma urea nitrogen/creatinine mass [...] Urine pH measurement by test strip 7 5-9 Specific gravity of urine by test strip 1.015 1.016- 1.022 Urine protein assay by test strip, semi-quantitative [...] 19:25 Blood leukocytes automated count (number/volume) 9.7 10*3/uL 4.3-11.0 Blood erythrocytes automated count (number/volume) 3.01 10*6/uL 4.35-5.85 Venous blood hemoglobin measurement (mass/volume) 9.6 [...] Automated blood platelet mean volume measurement 9.1 [foz_us] 7.4-10.4 Automated blood neutrophils/100 leukocytes 55 % [...] Serum or plasma sodium measurement (moles/volume) 137 mmol/L 135-145 Serum or plasma potassium measurement (moles/volume) 4.9 mmol/L 3.6-5.0 Serum or plasma chloride measurement (moles/volume) 106 mmol/L 98-107 Carbon dioxide 23 mmol/L 21-32 Serum or plasma anion gap determination (moles/volume) 8 mmol/L 5-14 Serum or plasma urea nitrogen measurement (mass/volume) 17 mg/dL 7-18 Serum or plasma creatinine measurement (mass/volume) 1.07 mg/dL 0.60-1.30 Serum or plasma urea nitrogen/creatinine mass [...] or plasma amylase measurement (enzymatic activity/volume) 51 U /L 25-125 Lipase - 02/04/17 19:25 Lipase 4 U/L 8-78 Automated blood complete blood count (hemogram) panel - 02/06/17 05:48 Blood leukocytes automated count (number/volume) 7.2 10*3/uL 4.3-11.0 Blood erythrocytes automated count (number/volume) 2.84 10*6/uL 4.35-5.85 Venous blood hemoglobin measurement (mass/volume) 9.0 [...] Automated blood platelet mean volume measurement 9.3 [foz_us] 7.4-10.4 Comprehensive metabolic panel - 02/06/17 05:48 Serum or plasma sodium measurement (moles/volume) 139 mmol/L 135-145 Serum or plasma potassium measurement (moles/volume) 4.3 mmol/L 3.6-5.0 Serum or plasma chloride measurement (moles/volume) 107 mmol/L 98-107 Carbon dioxide 25 mmol/L 21-32 Serum or plasma anion gap determination (moles/volume) 7 mmol/L 5-14 Serum or plasma urea nitrogen measurement (mass/volume) 19 mg/dL 7-18 Serum or plasma creatinine measurement (mass/volume) 0.89 mg/dL 0.60-1.30 Serum or plasma urea nitrogen/creatinine mass [...] resistant Staphylococcus aureus (MRSA) screening culture [facility] Automated blood complete blood count (hemogram) panel - 02/08/17 05:35 Blood leukocytes automated count (number/volume) 7.1 10*3/uL 4.3-11.0 Blood erythrocytes automated count (number/volume) 2.91 10*6/uL 4.35-5.85 Venous blood hemoglobin measurement (mass/volume) 9.2 [...] Automated blood platelet mean volume measurement 9.2 [foz_us] 7.4-10.4 Whole blood basic metabolic panel - 02/08/17 05:35 Serum or plasma sodium measurement (moles/volume) 140 mmol/L 135-145 Serum or plasma potassium measurement (moles/volume) 4.0 mmol/L 3.6-5.0 Serum or plasma chloride measurement (moles/volume) 109 mmol/L 98-107 Carbon dioxide 24 mmol/L 21-32 Serum or plasma anion gap determination (moles/volume) 7 mmol/L 5-14 Serum or plasma urea nitrogen measurement (mass/volume) 14 mg/dL 7-18 Serum or plasma creatinine measurement (mass/volume) 0.89 mg/dL 0.60-1.30 Serum or plasma urea nitrogen/creatinine mass ratio 16 NRG Serum or plasma creatinine measurement with calculation of estimated glomerular filtration rate > NRG Serum or plasma glucose measurement (mass/volume) 85 mg/dL 70-105 Serum or plasma calcium measurement (mass/volume) 8.4 mg/dL 8.5-10.1 Complete blood count (CBC) with automated white blood cell (WBC) differential - 02/09/17 05:35 Blood leukocytes automated count (number/volume) 9.7 10*3/uL 4.3-11.0 Blood erythrocytes automated count (number/volume) 2.96 10*6/uL 4.35-5.85 Venous blood hemoglobin measurement (mass/volume) 9.5 [...] Automated blood platelet mean volume measurement 9.4 [foz_us] 7.4-10.4 Automated blood neutrophils/100 leukocytes 55 % [...] blood basophil count (count/volume) 0.1 10*3/uL 0.0-0.1 Complete urinalysis with reflex to culture - 03/20/17 20:57 Urine color determination YELLOW NRG Urine clarity determination SLIGHTLY CLOUDY NRG Urine pH measurement by test strip 5 5-9 Specific gravity of urine by test strip 1.020 1.016- 1.022 Urine protein assay by test strip, semi-quantitative 2+ NEGATIVE Urine glucose detection by automated test strip NEGATIVE NEGATIVE Erythrocytes detection in urine sediment by light microscopy 1+ NEGATIVE Urine ketones detection by automated test strip NEGATIVE NEGATIVE Urine nitrite detection by test strip NEGATIVE NEGATIVE Urine total bilirubin detection by test strip NEGATIVE NEGATIVE Urine urobilinogen measurement by automated test strip (mass/volume) 1 mg/dL NORMAL Urine leukocyte esterase detection by dipstick 3+ NEGATIVE Automated urine sediment erythrocyte count by microscopy (number/high power field) [HPF] NRG Automated urine sediment leukocyte count by microscopy (number/high power field ) [HPF] NRG Bacteria detection in urine sediment by light microscopy FEW NRG Squamous epithelial cells detection in urine sediment by light microscopy 2-5 NRG Crystals detection in urine sediment by light microscopy NONE NRG Casts detection in urine sediment by light microscopy NONE NRG Mucus detection in urine sediment by light microscopy NEGATIVE NRG Complete urinalysis with reflex to culture YES NRG Renal epithelial cells detection in urine sediment by light microscopy 0-2 NRG Bacterial urine culture - 03/20/17 20:57 URINE CULTURE RESULTS MORE THAN 3 ISOLATES NRG Complete blood count (CBC) with automated white blood cell (WBC) differential - 03/20/17 21:03 Blood leukocytes automated count (number/volume) 7.1 10*3/uL 4.3-11.0 Blood erythrocytes automated count (number/volume) 2.86 10*6/uL 4.35-5.85 Venous blood hemoglobin measurement (mass/volume) 8.9 g/dL 11.5-16.0 Blood hematocrit (volume fraction) 27 % 35-52 Automated erythrocyte mean corpuscular volume 94 [foz_us] 80-99 Automated erythrocyte mean corpuscular hemoglobin (mass per erythrocyte) 31 pg 25-34 Automated erythrocyte mean corpuscular hemoglobin concentration measurement ( mass/volume) 33 g/dL 32-36 Automated erythrocyte distribution width ratio 13.9 % 10.0-14.5 Automated blood platelet count (count/volume) 149 10*3/uL 130-400 Automated blood platelet mean volume measurement 9.5 [foz_us] 7.4-10.4 Automated blood neutrophils/100 leukocytes 55 % 42-75 Automated blood lymphocytes/100 leukocytes 23 % 12-44 Blood monocytes/100 leukocytes 17 % 0-12 Automated blood eosinophils/100 leukocytes 5 % 0-10 Automated blood basophils/100 leukocytes 0 % 0-10 Blood neutrophils automated count (number/volume) 3.9 10*3 1.8-7.8 Blood lymphocytes automated count (number/volume) 1.7 10*3 1.0-4.0 Blood monocytes automated count (number/volume) 1.2 10*3 0.0-1.0 Automated eosinophil count 0.3 10*3/uL 0.0-0.3 Automated blood basophil count (count/volume) 0.0 10*3/uL 0.0-0.1 Whole blood basic metabolic panel - 03/20/17 21:03 Serum or plasma sodium measurement (moles/volume) 136 mmol/L 135-145 Serum or plasma potassium measurement (moles/volume) 4.1 mmol/L 3.6-5.0 Serum or plasma chloride measurement (moles/volume) 103 mmol/L 98-107 Carbon dioxide 24 mmol/L 21-32 Serum or plasma anion gap determination (moles/volume) 9 mmol/L 5-14 Serum or plasma urea nitrogen measurement (mass/volume) 13 mg/dL 7-18 Serum or plasma creatinine measurement (mass/volume) 0.95 mg/dL 0.60-1.30 Serum or plasma urea nitrogen/creatinine mass ratio 14 NRG Serum or plasma creatinine measurement with calculation of estimated glomerular filtration rate 57 NRG Serum or plasma glucose measurement (mass/volume) 114 mg/dL 70-105 Serum or plasma calcium measurement (mass/volume) 8.9 mg/dL 8.5-10.1 Complete blood count (CBC) with automated white blood cell (WBC) differential - 04/01/17 11:10 Blood leukocytes automated count (number/volume) 8.6 10*3/uL 4.3-11.0 Blood erythrocytes automated count (number/volume) 3.38 10*6/uL 4.35-5.85 Venous blood hemoglobin measurement (mass/volume) 10.3 g/dL 11.5-16.0 Blood hematocrit (volume fraction) 32 % 35-52 Automated erythrocyte mean corpuscular volume 95 [foz_us] 80-99 Automated erythrocyte mean corpuscular hemoglobin (mass per erythrocyte) 31 pg 25-34 Automated erythrocyte mean corpuscular hemoglobin concentration measurement ( mass/volume) 32 g/dL 32-36 Automated erythrocyte distribution width ratio 15.3 % 10.0-14.5 Automated blood platelet count (count/volume) 397 10*3/uL 130-400 Automated blood platelet mean volume measurement 9.5 [foz_us] 7.4-10.4 Automated blood neutrophils/100 leukocytes 75 % 42-75 Automated blood lymphocytes/100 leukocytes 12 % 12-44 Blood monocytes/100 leukocytes 11 % 0-12 Automated blood eosinophils/100 leukocytes 1 % 0-10 Automated blood basophils/100 leukocytes 1 % 0-10 Blood neutrophils automated count (number/volume) 6.5 10*3 1.8-7.8 Blood lymphocytes automated count (number/volume) 1.1 10*3 1.0-4.0 Blood monocytes automated count (number/volume) 1.0 10*3 0.0-1.0 Automated eosinophil count 0.1 10*3/uL 0.0-0.3 Automated blood basophil count (count/volume) 0.0 10*3/uL 0.0-0.1 PT panel in platelet poor plasma by coagulation assay - 04/01/17 11:10 Prothrombin time (PT) in platelet poor plasma by coagulation assay 13.3 s 12.2-14.7 INR in platelet poor plasma or blood by coagulation assay 1.0 0.8-1.4 Activated partial thromboplastin time (aPTT) in platelet poor plasma bycoagulation assay - 04/01/17 11:10 Activated partial thromboplastin time (aPTT) in platelet poor plasma bycoagulation assay 27 s 24-35 Comprehensive metabolic panel - 04/01/17 11:10 Serum or plasma sodium measurement (moles/volume) 135 mmol/L 135-145 Serum or plasma potassium measurement (moles/volume) 3.8 mmol/L 3.6-5.0 Serum or plasma chloride measurement (moles/volume) 102 mmol/L 98-107 Carbon dioxide 25 mmol/L 21-32 Serum or plasma anion gap determination (moles/volume) 8 mmol/L 5-14 Serum or plasma urea nitrogen measurement (mass/volume) 11 mg/dL 7-18 Serum or plasma creatinine measurement (mass/volume) 0.84 mg/dL 0.60-1.30 Serum or plasma urea nitrogen/creatinine mass ratio 13 NRG Serum or plasma creatinine measurement with calculation of estimated glomerular filtration rate > NRG Serum or plasma glucose measurement (mass/volume) 167 mg/dL 70-105 Serum or plasma calcium measurement (mass/volume) 9.0 mg/dL 8.5-10.1 Serum or plasma total bilirubin measurement (mass/volume) 2.5 mg/dL 0.1-1.0 Serum or plasma alkaline phosphatase measurement (enzymatic activity/volume) 485 U/L 40-136 Serum or plasma aspartate aminotransferase measurement (enzymatic activity/ volume) 598 U/L 5-34 Serum or plasma alanine aminotransferase measurement (enzymatic activity/volume ) 379 U/L 0-55 Serum or plasma protein measurement (mass/volume) 6.6 g/dL 6.4-8.2 Serum or plasma albumin measurement (mass/volume) 3.5 g/dL 3.2-4.5 Magnesium - 04/01/17 11:10 Magnesium 1.8 mg/dL 1.8-2.4 Serum or plasma troponin i.cardiac measurement (mass/volume) - 04/01/17 11:10 Serum or plasma troponin i.cardiac measurement (mass/volume) < ng/ mL <0.30 Myoglobin, serum - 04/01/17 11:10 Myoglobin, serum 63.6 ng/mL 10.0-92.0 Serum or plasma amylase measurement (enzymatic activity/volume) - 04/01/17 11: 10 Serum or plasma amylase measurement (enzymatic activity/volume) 21 U /L 25-125 Lipase - 04/01/17 11:10 Lipase 4 U/L 8-78 Fibrin D-dimer FEU measurement in platelet poor plasma (mass/volume) - 11:10 Fibrin D-dimer FEU measurement in platelet poor plasma (mass/volume) 1.58 ug/mL 0.00-0.49 Complete blood count (CBC) with automated white blood cell (WBC) differential - 09/13/17 20:41 Blood leukocytes automated count (number/volume) 5.9 10*3/uL 4.3-11.0 Blood erythrocytes automated count (number/volume) 3.31 10*6/uL 4.35-5.85 Venous blood hemoglobin measurement (mass/volume) 9.8 g/dL 11.5-16.0 Blood hematocrit (volume fraction) 30 % 35-52 Automated erythrocyte mean corpuscular volume 90 [foz_us] 80-99 Automated erythrocyte mean corpuscular hemoglobin (mass per erythrocyte) 30 pg 25-34 Automated erythrocyte mean corpuscular hemoglobin concentration measurement ( mass/volume) 33 g/dL 32-36 Automated erythrocyte distribution width ratio 14.4 % 10.0-14.5 Automated blood platelet count (count/volume) 201 10*3/uL 130-400 Automated blood platelet mean volume measurement 10.5 [foz_us] 7.4-10.4 Automated blood neutrophils/100 leukocytes 54 % 42-75 Automated blood lymphocytes/100 leukocytes 29 % 12-44 Blood monocytes/100 leukocytes 14 % 0-12 Automated blood eosinophils/100 leukocytes 3 % 0-10 Automated blood basophils/100 leukocytes 1 % 0-10 Blood neutrophils automated count (number/volume) 3.2 10*3 1.8-7.8 Blood lymphocytes automated count (number/volume) 1.7 10*3 1.0-4.0 Blood monocytes automated count (number/volume) 0.8 10*3 0.0-1.0 Automated eosinophil count 0.2 10*3/uL 0.0-0.3 Automated blood basophil count (count/volume) 0.0 10*3/uL 0.0-0.1 Comprehensive metabolic panel - 09/13/17 20:41 Serum or plasma sodium measurement (moles/volume) 138 mmol/L 135-145 Serum or plasma potassium measurement (moles/volume) 3.3 mmol/L 3.6-5.0 Serum or plasma chloride measurement (moles/volume) 106 mmol/L 98-107 Carbon dioxide 23 mmol/L 21-32 Serum or plasma anion gap determination (moles/volume) 9 mmol/L 5-14 Serum or plasma urea nitrogen measurement (mass/volume) 7 mg/dL 7-18 Serum or plasma creatinine measurement (mass/volume) 0.67 mg/dL 0.60-1.30 Serum or plasma urea nitrogen/creatinine mass ratio 10 NRG Serum or plasma creatinine measurement with calculation of estimated glomerular filtration rate > NRG Serum or plasma glucose measurement (mass/volume) 106 mg/dL 70-105 Serum or plasma calcium measurement (mass/volume) 8.3 mg/dL 8.5-10.1 Serum or plasma total bilirubin measurement (mass/volume) 2.4 mg/dL 0.1-1.0 Serum or plasma alkaline phosphatase measurement (enzymatic activity/volume) 424 U/L 40-136 Serum or plasma aspartate aminotransferase measurement (enzymatic activity/ volume) 69 U/L 5-34 Serum or plasma alanine aminotransferase measurement (enzymatic activity/volume ) 76 U/L 0-55 Serum or plasma protein measurement (mass/volume) 5.8 g/dL 6.4-8.2 Serum or plasma albumin measurement (mass/volume) 2.8 g/dL 3.2-4.5 Bilirubin direct - 09/13/17 20:41 Bilirubin direct 1.7 mg/dL 0.0-0.3 Lipase - 09/13/17 20:41 Lipase 5 U/L 8-78 Complete urinalysis with reflex to culture - 09/13/17 21:43 Urine color determination YELLOW NRG Urine clarity determination CLEAR NRG Urine pH measurement by test strip 7 5-9 Specific gravity of urine by test strip 1.005 1.016- 1.022 Urine protein assay by test strip, semi-quantitative NEGATIVE NEGATIVE Urine glucose detection by automated test strip NEGATIVE NEGATIVE Erythrocytes detection in urine sediment by light microscopy NEGATIVE NEGATIVE Urine ketones detection by automated test strip NEGATIVE NEGATIVE Urine nitrite detection by test strip NEGATIVE NEGATIVE Urine total bilirubin detection by test strip NEGATIVE NEGATIVE Urine urobilinogen measurement by automated test strip (mass/volume) NORMAL NORMAL Urine leukocyte esterase detection by dipstick 2+ NEGATIVE Automated urine sediment erythrocyte count by microscopy (number/high power field) RARE NRG Automated urine sediment leukocyte count by microscopy (number/high power field ) [HPF] NRG Bacteria detection in urine sediment by light microscopy NONE NRG Crystals detection in urine sediment by light microscopy NONE NRG Casts detection in urine sediment by light microscopy NONE NRG Mucus detection in urine sediment by light microscopy NEGATIVE NRG Complete urinalysis with reflex to culture NO NRG Encounters ACCT No. Visit Date/Time Discharge Status Pt. Type Provider Facility Loc./Unit Complaint [id number] 11/03/2017 10:47:00 11/03/2017 23:59:59 CLS Outpatient HERLINDA XIN Reeder [facility] ONC [id number] 10/06/2017 09:22:00 10/29/2017 16:15:00 DIS Outpatient JOSE WESTON MD [facility] ONC [id number] 09/21/2017 09:45:00 09/21/2017 23:59:59 CLS Preadmit JOSE WESTON MD [facility] RAD C25.0 PANCREATIC CANCER [id number] 09/13/2017 18:54:00 09/13/2017 22:39:00 DIS Emergency MAYNOR BONNER MD [facility] ER WEAKNESS/ORANGE URINE [id number] 08/10/2017 13:27:00 08/14/2017 00:01:00 DIS Outpatient XIN PATE [facility] ONC [id number] 06/03/2017 10:23:00 06/16/2017 00:01:00 DIS Outpatient XIN PATE Lilli [facility] ONC [id number] 04/27/2017 11:36:00 04/27/2017 23:59:59 CLS Outpatient MORENITA FARRIS [facility] RAD LUNG NODULE [id number] 04/14/2017 11:53:00 04/14/2017 23:59:59 CLS Outpatient MORENITA FARRIS [place] RAD LT LEG SWELLING [id number] 04/01/2017 10:42:00 04/01/2017 17:43:00 DIS Emergency SALINA COTA MD [facility] ER IRR HEART RATE [id number] 03/20/2017 20:42:00 03/20/2017 22:13:00 DIS Emergency RONEL MARES APRN [facility] ER BACK PAIN [id number] 03/18/2017 08:04:00 03/18/2017 15:20:00 DIS Emergency MIKHAIL LAZO, ZAYRA Crowley [facility] ER LOW BACK PAIN [id number] 03/11/2017 13:01:00 03/17/2017 00:01:00 DIS Outpatient XIN PATE [facility] ONC [id number] 02/10/2017 11:30:00 02/17/2017 16:20:00 DIS Inpatient VALENTINA LAZO, ERICKA Gama [facility] IRF T10 COMPRESSION FRACTURE [id number] 02/04/2017 21:30:00 02/10/2017 11:10:00 DIS Outpatient ITZEL SCOTT DO [facility] NEW T10 COMPRESSION FRACTURE INTRACTABLE PAIN UTI [id number] 01/23/2017 15:31:00 01/23/2017 18:42:00 DIS Emergency RONEL MARES APRN [facility] ER BACK PAIN [id number] 12/17/2016 10:15:00 12/17/2016 23:59:59 CLS Outpatient MORENITA FARRIS [place] [facility] RAD PANCREATIC CANCER, LUNG NODULE [id number] 11/05/2016 13:19:00 11/25/2016 00:01:00 DIS Outpatient XIN PATE [facility] ONC [id number] 09/24/2016 10:07:00 09/24/2016 23:59:59 CLS Outpatient MORENITA FARRIS [place] [facility] RAD PANCREATIC CANCER [id number] 07/14/2016 14:37:00 08/21/2016 11:10:00 DIS Outpatient XIN PATE [facility] ONC [id number] 07/14/2016 08:00:00 07/14/2016 23:59:59 CLS Outpatient MORENITA FARRIS S [place] [facility] ONC [id number] 05/29/2016 19:32:00 05/30/2016 00:59:00 DIS Emergency DINAH MELISSA [facility] ER PALENESS/ABD SIDE PAIN [id number] 04/27/2016 12:55:00 05/18/2016 00:01:00 DIS Outpatient XIN PATE [facility] ONC [id number] 04/22/2016 10:25:00 04/22/2016 23:59:59 CLS Outpatient FARRIS HILAH S [place] RAD PANCREATIC CANCER [id number] 03/17/2016 10:59:00 03/17/2016 23:59:59 CLS Outpatient FARRIS HILAH S [place] [employer] ONC [id number] 02/06/2016 09:00:00 02/17/2016 00:01:00 DIS Outpatient XIN PATE [facility] ONC [id number] 02/06/2016 08:57:00 02/06/2016 23:59:59 CLS Outpatient FARRIS HILAH S [place] [facility] ONC [id number] 01/31/2016 09:37:00 01/31/2016 23:59:59 CLS Outpatient FARRIS, HILAH S [place] [facility] RAD PANCREATIC CANCER [id number] 01/28/2016 10:39:00 01/28/2016 23:59:59 CLS Outpatient FARRIS HILAH S [place] [facility] ONC [id number] 01/21/2016 12:15:00 01/21/2016 23:59:59 CLS Outpatient BAIMA ANCELMO L [place] [facility] CARD PALPITATIONS,CAD,HTN ,PAD [id number] 01/16/2016 07:45:00 01/16/2016 23:59:59 CLS Outpatient BAIMA, ANCELMO L [place] CARD PALPITATIONS,CAD,PAD ,HTN [id number] 12/16/2015 15:44:00 12/16/2015 23:59:59 CLS Outpatient YANETH LAZO, JENNIFER Hernandez [facility] RAD HEMATURIA [id number] 12/15/2015 09:04:00 12/15/2015 12:20:00 DIS Emergency MIKHAIL LAZO, ZAYRA Crowley [facility] ER L SIDE NUMBNESS [id number] 12/13/2015 12:18:00 12/13/2015 23:59:59 CLS Emergency MIKHAIL LAZO, ZAYRA Crowley [facility] ER SOA [id number] 12/05/2015 16:39:00 12/05/2015 23:59:59 CLS Outpatient FARRIS, HILAH S [place] [facility] ONC [id number] 11/27/2015 08:34:00 11/27/2015 23:59:59 CLS Outpatient FARRIS, HILAH S [place] RAD PANCREATIC CANCER [id number] 11/12/2015 13:50:00 11/18/2015 00:01:00 DIS Outpatient XIN PATE N [facility] ONC [id number] 11/12/2015 13:52:00 11/12/2015 23:59:59 CLS Outpatient FARRIS, HILAH S [place] [facility] ONC [id number] 10/01/2015 13:14:00 10/01/2015 23:59:59 CLS Outpatient FARRIS, HILAH S [place] [employer] [facility] ONC [id number] 09/10/2015 13:18:00 09/10/2015 23:59:59 CLS Outpatient FARRIS, HILAH S [place] [facility] ONC [id number] 08/20/2015 13:54:00 08/20/2015 23:59:59 CLS Outpatient FARRIS, HILAH S [place] [employer] ONC [id number] 08/06/2015 13:20:00 08/14/2015 00:01:00 DIS Outpatient XIN PATE N [facility] ONC [id number] 07/29/2015 09:10:00 07/29/2015 23:59:59 CLS Outpatient FARRIS, HILAH S [place] [employer] RAD PANCREATIC CANCER [id number] 07/16/2015 13:13:00 07/16/2015 23:59:59 CLS Outpatient FARRIS, HILAH S [place] [employer] ONC [id number] 06/25/2015 10:33:00 06/25/2015 23:59:59 CLS Outpatient FARRIS, HILAH S [place] [employer] ONC [id number] 06/11/2015 13:45:00 06/16/2015 00:01:00 DIS Outpatient XIN PATE Lilli [facility] ONC [id number] 05/28/2015 14:00:00 05/28/2015 23:59:59 CLS Outpatient ROBERT SWENSON MD [facility] ONC [id number] 05/01/2015 09:20:00 05/01/2015 23:59:59 CLS Outpatient MORENITA FARRIS S [place] [employer] [facility] RAD PANCREATIC CANCER [id number] 04/16/2015 13:44:00 04/16/2015 23:59:59 CLS Outpatient MORENITA FARRIS S [employer] [employer] [facility] ONC [id number] 02/19/2015 13:57:00 02/19/2015 23:59:59 CLS Outpatient MORENITA FARRIS S [place] [employer] [facility] ONC [id number] 01/01/2015 13:54:00 01/01/2015 23:59:59 CLS Outpatient XIN PATE Lilli [facility] ONC [id number] 12/28/2014 05:53:00 12/28/2014 09:01:00 DIS Emergency ZAYRA ELIZONDO MD [facility] ER HEART PALPITATIONS [id number] 12/25/2014 14:03:00 12/25/2014 23:59:59 CLS Outpatient MORENITA FARRIS S [place] [employer] [facility] ONC [id number] 12/21/2014 06:04:00 12/21/2014 10:31:00 DIS Outpatient INGRID COOPER MD [facility] SDC PANCREATIC CANCER [id number] 12/19/2014 11:07:00 12/19/2014 23:59:59 CLS Outpatient INGRID COOPER MD [facility] PREOP PANCREATIC CANCER [id number] 12/12/2014 08:38:00 12/12/2014 16:20:00 DIS Outpatient JENNIFER WOLFE MD [facility] RAD PANCREATIC MASS [id number] 12/04/2014 12:21:00 12/04/2014 23:59:59 CLS Outpatient JENNIFER WOLFE MD [facility] RAD ABDOMINAL MASS [id number] 11/30/2014 14:45:00 11/30/2014 23:59:59 CLS Outpatient JENNIFER WOLFE MD [facility] RAD PANCREATIC MASS [id number] 11/30/2014 08:02:00 11/30/2014 23:59:59 CLS Outpatient JENNIFER WOLFE MD [facility] RAD PANCREATIC MASS [id number] 11/27/2014 08:49:00 11/27/2014 23:59:59 CLS Outpatient JENNIFER WOLFE MD [facility] CARD CHEST ABDOMINAL PAIN [id number] 10/04/2014 09:57:00 10/04/2014 17:50:00 DIS Outpatient INGRID COOPER MD [facility] CATH ASOD,LEG PAIN [id number] 06/05/2014 10:17:00 06/05/2014 23:59:59 CLS Outpatient JENNIFER WOLFE MD [facility] RAD SCREENING [id number] 11/29/2017 13:50:00 ACT Emergency MAYNOR BONNER MD [facility] ER N/V [id number] 02/05/2015 09:19:00 Document Registration [id number] 02/01/2015 10:17:00 Document Registration [id number] 11/27/2014 08:49:00 Document Registration [id number] 11/27/2014 08:49:00 Document Registration [id number] 11/27/2014 08:49:00 Document Registration [id number] 11/27/2014 08:48:00 Document Registration [id number] 08/26/2012 10:27:00 Document Registration [id number] 11/19/2011 11:20:00 Document Registration [id number] 10/28/2011 19:50:00 Document Registration [id number] 03/04/2011 10:10:00 Document Registration [id number] 03/02/2011 14:10:00 Document Registration [id number] 02/17/2011 19:16:00 Document Registration [id number] 11/27/2010 13:05:00 Document Registration [id number] 01/15/2010 14:23:00 Document Registration [id number] 08/28/2008 16:45:00 Document Registration
--- NOTE | 2017-11-29 14:06 | ED GI ---
General Chief Complaint: Abdominal/GI Problems Stated Complaint: N/V Source of Information: Patient, EMS Exam Limitations: No Limitations (MAYNOR MICHAEL) History of Present Illness Time Seen By Provider: 13:54 Initial Comments Patient presents the ER by EMS with a chief complaint that since yesterday she began experiencing some nausea vomiting and burning in her esophagus. She describes the pain as a burning sensation starting in her epigastrium and working its way up to the back of her throat with some reflux. She vomited a couple times so far has not taken any of her home nausea medicines and denies any blood in the vomitus. She has no other chest pain, shortness of breath or history of coronary disease. She denies wheezing, rash, falls, trauma. She does have a history of pancreatic cancer. She says she is concerned this morning may be related to her pancreas. She is not having any significant abdominal pain or tenderness at this time. She has not been able to keep fluids down very well today. EMS reports her vitals are normal and they did not access her port because they did not plan to give her anything since her nausea had resolved by the time they got to her. Patient says she's had a little bit of uncomfortable urination last couple days as well. She denies frequency or hesitancy of urine. Patient's had mini strokes in her most recent EGD was about 3 months ago and did not note any peptic ulcer disease. A stent at that time was placed; probably the bile duct. (MAYNOR MICHAEL) Allergies and Home Medications Allergies Coded Allergies: codeine (Verified Adverse Reaction, Mild, NAUSEA, 07/30/08) meperidine (Verified Adverse Reaction, Mild, N/V, 01/17/10) morphine (Verified Adverse Reaction, Mild, NAUSEA, 07/30/08) Home Medications Diazepam 5 Mg Tablet, 5 MG PO Q8H PRN for ANXIETY, (Reported) Doxazosin Mesylate 2 Mg Tablet, 2 MG PO BID, (Reported) Famotidine 20 Mg Tablet, 20 MG PO BID for 30 Days, #60 Ref 0 Prescribed by: MAYNOR MICHAEL on 11/29/17 1543 Furosemide 20 Mg Tablet, 20 MG PO Q48H, (Reported) Hydromorphone HCl 2 Mg Tablet, 2 MG PO 4 times a day PRN for pain, #14 Start with one half tab and may increase to 1 tab if pain relief not Prescribed by: ZAYRA ELIZONDO on 03/18/17 1501 Lisinopril 40 Mg Tablet, 40 MG PO DAILY, (Reported) Metoprolol Succinate 50 Mg Tab.er.24h, 50 MG PO HS, (Reported) TAKES ALONG WITH 100MG TABLET AT BEDTIME FOR A TOTAL BEDTIME DOSE OF 150MG Nitrofurantoin Monohyd/M-Cryst 100 Mg Capsule, 1 TAB PO BID for 10 Days, #19 Ref 0 Prescribed by: MAYNOR MICHAEL on 11/29/17 1804 Sucralfate 1 Gm/10 Ml Oral.susp, 1 GM PO QIDACHS for 14 Days, #560 Ref 0 Prescribed by: MAYNOR MICHAEL on 11/29/17 1543 [Oxycodone Hcl] 5 MG TAB, 10 MG PO Q4H PRN for PAIN-SEVERE for 14 Days, #30 Prescribed by: ERICKA MONTGOMERY on 02/17/17 0922 Review of Systems Constitutional: No chills, No fever Respiratory: Denies Cough, Denies Shortness of Air Cardiovascular: Denies Chest Pain, Denies Palpitations, Denies Syncope Gastrointestinal: Denies Abdomen Distended, Denies Abdominal Pain, Denies Constipated, Denies Diarrhea, Denies Difficulty Swallowing, Nausea, Poor Appetite, Poor Fluid Intake, Vomiting Genitourinary: Denies Discharge, Denies Drainage Musculoskeletal: No back pain, No joint pain Skin: No pruritus, No rash (MAYNOR MICHAEL) Past Kvuvjwu-Fbqwlo-Llwubx Hx Patient Social History Alcohol Use: Denies Use Recreational Drug Use: No Smoking Status: Former Smoker Type Used: Cigarettes Former Smoker, Quit: Nov 15, 2001 Recent Hopitalizations: No (MAYNOR MICHAEL) Immunizations Up To Date Tetanus Booster (TDap): Unknown Date of Influenza Vaccine: Oct 15, 2016 (MAYNOR MICHAEL) Seasonal Allergies Seasonal Allergies: No (MAYNOR MICHAEL) Surgeries History of Surgeries: Yes (SPINE FUSION IN JANUARY 2017, VETEBRALPLASTY MARCH 2017) Surgeries: Abdominal, Appendectomy, Eye Surgery, Gallbladder, Hysterectomy, Vascular Surgery (MAYNOR MICHAEL) Respiratory History of Respiratory Disorde: No (MAYNOR MICHAEL) Cardiovascular History of Cardiac Disorders: Yes Cardiac Disorders: Deep Vein Thrombosis, Hypertension, Peripheral Vascular (MAYNOR MICHAEL) Neurological History of Neurological Disord: No (MAYNOR MICHAEL) Reproductive System Hx Reproductive Disorders: No 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, 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 (MAYNOR MICHAEL) Genitourinary History of Genitourinary Disor: No (MAYNOR MICHAEL) Gastrointestinal History of Gastrointestinal Di: Yes (PANCREATIC CANCER) Gastrointestinal Disorders: Gastroesophageal Reflux (MAYNOR MICHAEL) Musculoskeletal History of Musculoskeletal Dis: Yes Musculoskeletal Disorders: Degenerate Disk Disease, Arthritis (MAYNOR MICHAEL) Endocrine History of Endocrine Disorders: No (MAYNOR MICHAEL) HEENT History of HEENT Disorders: Yes HEENT Disorders: Cataract (MAYNOR MICHAEL) Cancer History of Cancer: Yes Cancer: Pancreatic Did You Recieve Any Treatments: Yes Type of Tx Receive: Chemotherapy, Radiation (MAYNOR MICHAEL) Psychosocial History of Psychiatric Problem: No (MAYNOR MICHAEL) Integumentary History of Skin or Integumenta: No (POST OP WOUND INFECTIONS, DEHISCENCE) (MAYNOR MICHAEL) Blood Transfusions History of Blood Disorders: No Adverse Reaction to a Blood Tr: No (MAYNOR MICHAEL) Family Medical History Family Medial History: Acute lymphoblastic leukemia (ALL) G8 BROTHER Alzheimer's disease 19 FATHER Completed stroke 19 MOTHER Diabetes mellitus 19 MOTHER (MAYNOR MICHAEL) Family Medial History: Acute lymphoblastic leukemia (ALL) G8 BROTHER Alzheimer's disease 19 FATHER Completed stroke 19 MOTHER Diabetes mellitus 19 MOTHER (EZEQUIEL CHOI MD) Physical Exam Vital Signs VS - Last 72 Hours, by Label 11/29/17 11/29/17 14:00 19:20 Temp 97.9 Pulse 79 65 Resp 20 16 B/P (MAP) 154/86 (108) Pulse Ox 94 99 O2 Delivery Room Air Room Air (EZEQUIEL CHOI MD) Vital Signs Capillary Refill : (MAYNOR MICHAEL) General Appearance: WD/WN, mild distress HEENT: PERRL/EOMI, pharynx normal Neck: non-tender, normal inspection Respiratory: chest non-tender, lungs clear, normal breath sounds, no respiratory distress, no accessory muscle use Cardiovascular: normal peripheral pulses, regular rate, rhythm, no edema Peripheral Pulses: 2+ Radial Pulses (R), 2+ Radial Pulses (L) Gastrointestinal: normal bowel sounds, soft, No distended, No guarding, No rebound, tenderness (very mild epigastric), No mass Extremities: normal range of motion, normal capillary refill Neurologic/Psychiatric: alert, normal mood/affect, oriented x 3 Skin: normal color, warm/dry (MAYNOR MICHAEL J) Progress/Results/Core Measures Results/Orders Lab Results Laboratory Tests Test 11/29/17 14:15 11/29/17 17:08 11/29/17 18:15 Range/Units White Blood Count 6.1 4.3-11.0 10^3/uL Red Blood Count 3.62 L 4.35-5.85 10^6/uL Hemoglobin 11.1 L 11.5-16.0 G/DL Hematocrit 33 L 35-52 % Mean Corpuscular Volume 90 80-99 FL Mean Corpuscular Hemoglobin 31 25-34 PG Mean Corpuscular Hemoglobin Concent 34 32-36 G/DL Red Cell Distribution Width 15.0 H 10.0-14.5 % Platelet Count 190 130-400 10^3/uL Mean Platelet Volume 10.7 H 7.4-10.4 FL Neutrophils (%) (Auto) 65 42-75 % Lymphocytes (%) (Auto) 26 12-44 % Monocytes (%) (Auto) 8 0-12 % Eosinophils (%) (Auto) 1 0-10 % Basophils (%) (Auto) 1 0-10 % Neutrophils # (Auto) 3.9 1.8-7.8 X 10^3 Lymphocytes # (Auto) 1.6 1.0-4.0 X 10^3 Monocytes # (Auto) 0.5 0.0-1.0 X 10^3 Eosinophils # (Auto) 0.1 0.0-0.3 10^3/uL Basophils # (Auto) 0.0 0.0-0.1 10^3/uL Sodium Level 139 135-145 MMOL/L Potassium Level 3.9 3.6-5.0 MMOL/L Chloride Level 101 98-107 MMOL/L Carbon Dioxide Level 27 21-32 MMOL/L Anion Gap 11 5-14 MMOL/L Blood Urea Nitrogen 14 7-18 MG/DL Creatinine 0.82 0.60-1.30 MG/DL Estimat Glomerular Filtration Rate > 60 BUN/Creatinine Ratio 17 Glucose Level 101 70-105 MG/DL Calcium Level 9.1 8.5-10.1 MG/DL Magnesium Level 1.9 1.8-2.4 MG/DL Total Bilirubin 1.4 H 0.1-1.0 MG/DL Aspartate Amino Transf (AST/SGOT) 18 5-34 U/L Alanine Aminotransferase (ALT/SGPT) 10 0-55 U/L Alkaline Phosphatase 58 40-136 U/L Troponin I < 0.30 < 0.30 <0.30 NG/ML Total Protein 6.7 6.4-8.2 GM/DL Albumin 3.1 L 3.2-4.5 GM/DL Lipase 12 8-78 U/L Urine Color ROGELIO H Urine Clarity CLEAR Urine pH 6 5-9 Urine Specific Carter 1.020 1.016-1.022 Urine Protein 2+ H NEGATIVE Urine Glucose (UA) NEGATIVE NEGATIVE Urine Ketones 2+ H NEGATIVE Urine Nitrite NEGATIVE NEGATIVE Urine Bilirubin 1+ H NEGATIVE Urine Urobilinogen 1 NORMAL MG/DL Urine Leukocyte Esterase 2+ H NEGATIVE Urine RBC (Auto) 2+ H NEGATIVE Urine RBC NONE /HPF Urine WBC 5-10 H /HPF Urine Squamous Epithelial Cells 2-5 /HPF Urine Crystals NONE /LPF Urine Bacteria NEGATIVE /HPF Urine Casts PRESENT /LPF Urine Hyaline Casts 2-5 H /LPF Urine Mucus SMALL H /LPF Urine Culture Indicated YES (EZEQUIEL CHOI MD) Micro Results Microbiology 11/29/17 Influenza Types A,B Antigen (SHAR) - Final, Complete (EZEQUIEL CHOI MD) Medications Given in ED Current Medications Medications Dose Ordered Sig/Fracisco Route Start Time Stop Time Status Last Admin Dose Admin Al Hydrox/Mg Hydrox/Simethicone 30 ml ONCE ONCE PO 11/29/17 14:00 11/29/17 14:02 DC 11/29/17 14:40 30 ML Lidocaine HCl 15 ml ONCE ONCE PO 11/29/17 14:00 11/29/17 14:02 DC 11/29/17 14:40 15 ML Nitrofurantoin Macrocrystals 100 mg ONCE ONCE PO 11/29/17 17:45 11/29/17 17:46 DC 11/29/17 18:12 100 MG Ondansetron HCl 4 mg ONCE ONCE IVP 1/15/18 14:00 11/29/17 14:02 DC 11/29/17 14:40 4 MG Sodium Chloride 1,000 ml @ 0 mls/hr Q0M ONCE IV 11/29/17 13:56 11/29/17 14:02 DC 11/29/17 14:41 500 MLS/HR (EZEQUIEL CHOI MD) Vital Signs/I&O Vital Sign - Last 12Hours 11/29/17 11/29/17 14:00 19:20 Temp 97.9 Pulse 79 65 Resp 20 16 B/P (MAP) 154/86 (108) Pulse Ox 94 99 O2 Delivery Room Air Room Air (EZEQUIEL CHOI MD) Progress Note #1: Time: 14:05 Progress Note Return to give a GI cocktail check some lab work to include lipase as well as troponin and EKG. It is very unlikely that this is personnel representative of heart disease however it is slightly different from typical pancreatitis presentation. Chest pain is not reproducible on palpation. She's not describing the cervical chest pain is much as a burning sensation which she locates to her esophagus accompanied with reflux. GERD versus PUD versus pancreatitis. Progress Note #2: Time: 15:38 Progress Note The patient's burning symptoms resolved shortly after taking the GI cocktail. Her nausea resolved shortly after the IV Zofran. Her lipase is not elevated and her initial EKG and troponin are unremarkable. While this is likely not personnel representative of a cardio genic chest burning/pain were going to go ahead and do a four-hour rule out given her age and frailty. Her next EKG and troponin would be at 6:15 PM. Explains patient and she is okay with this. We'll get her set up to use some Pepcid twice a day outpatient as well as Carafate and follow- up with her primary care physician. Progress Note #3: Time: 17:31 Progress Note Patient's urinalysis may incidentally show UTI so we'll go ahead and start her on Macrobid. Progress Note #4: Time: 18:18 Progress Note Discussed case lab imaging findings and the patient's present UTI with Dr. Don who will take over care of the patient waiting for the results of the troponin. It is negative the patient follow-up with her primary care physician outpatient. (MAYNOR MICHAEL) Progress Note : Time: 19:30 Progress Note Repeat troponin was negative. Patient reports that she is feeling "pretty good ". Patient was discharged according to Dr. Michael's discharge instructions. (EZEQUIEL CHOI MD) ECG Initial ECG Impression Date: Nov 29, 2017 Initial ECG Impression Time: 14:27 Initial ECG Rate: 79 Initial ECG Rhythm: Normal Sinus Initial ECG Intervals: Normal Initial ECG Impression: Normal, Nonspecific Changes Initial ECG Comparisson: No Previous ECG Available Comment No T-wave elevation or depression. EKG : EKG Time: 18:14 Rate: 66 Rhythm: Normal Sinus Intervals: Normal ECG Comparisson: Unchanged ECG Impression: Normal, Nonspecific Changes Comment No T-wave elevation or depression (MAYNOR MICHAEL) Diagnostic Imaging Diagonstic Imaging: Xray Plain Films/CT/US/NM/MRI: chest (1v) Comments [facility] [place], [place] NAME: ABILIO COE MED REC#: [id number] PT STATUS: REG ER : 1935 PHYSICIAN: MAYNOR MICHAEL MD ADMIT DATE: 11/29/17/ER Draft Date of Exam:11/29/17 CHEST 1 VIEW, AP/PA ONLY INDICATION: Shortness of breath. EXAMINATION: Portable chest at 02:48 p.m. FINDINGS: Left subclavian Port-A-Cath tip projects over the SVC. Heart size and pulmonary vascularity are normal. There are no infiltrates, effusions or pneumothoraces. There is old granulomatous change in the right lower chest. IMPRESSION: No acute abnormalities of the chest. Dictated on workstation # [id number] Dict: 11/29/17 1503 Trans: 11/29/17 1510 [facility] [id number] Interpreted by: SALINA BLAKE MD Electronically signed by: Reviewed: Reviewed by Me (MAYNOR MICHAEL) Transfer of Care Transfer of Care Time: 18:20 Care transferred to: Dr. Don (MANYOR MICHAEL) Departure Impression Impression: Primary Impression: GERD (gastroesophageal reflux disease) Qualified Codes: K21.9 - Gastro-esophageal reflux disease without esophagitis Disposition: 01 HOME, SELF-CARE Condition: Stable Departure-Patient Inst. Referrals: DENY MONTAGUE MD (PCP/Family) Primary Care Physician Patient Instructions: Acid Reflux (Gastroesophageal Reflux Disease), Adult (DC) Add. Discharge Instructions: For the next 2 weeks take one tablet of Carafate 20-30 minutes prior to eating 3 times a day and then one more tablet at night. Take one tablet of Pepcid twice a day for the next 4 weeks. 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 If you're having worsening symptoms he may want to follow up sooner. All discharge instructions reviewed with patient and/or family. Voiced understanding. Scripts Nitrofurantoin Monohyd/M-Cryst (Macrobid 100 mg Capsule) 100 Mg Capsule 1 TAB PO BID for 10 Days, #19 CAP 0 Refills Prov: MAYNOR MICHAEL 11/29/17 Sucralfate (Carafate) 1 Gm/10 Ml Oral.susp 1 GM PO QIDACHS for 14 Days, #560 ML 0 Refills Prov: MAYNOR MICHAEL 11/29/17 Famotidine (Pepcid) 20 Mg Tablet 20 MG PO BID for 30 Days, #60 TAB 0 Refills Prov: MAYNOR MICHAEL 11/29/17 Copy Copies To 1: DENY MONTAGUE MD, TITUS J Nov 29, 2017 14:06 EZEQUIEL CHOI MD Nov 29, 2017 19:50
[2017-11-29 14:37] LABS: BASOPHILS % (AUTO) 1 % (0-10); EOSINOPHILS # (AUTO) 0.1 10^3/uL (0.0-0.3); EOSINOPHILS % (AUTO) 1 % (0-10); HEMATOCRIT 33 % (35-52); HEMOGLOBIN 11.1 G/DL (11.5-16.0); LYMPHOCYTES # (AUTO) 1.6 X 10^3 (1.0-4.0); LYMPHOCYTES % (AUTO) 26 % (12-44); MEAN CORPUSCULAR HEMOGLOBIN 31 PG (25-34); MEAN CORPUSCULAR HGB CONC 34 G/DL (32-36); MEAN CORPUSCULAR VOLUME 90 FL (80-99); MEAN PLATELET VOLUME 10.7 FL (7.4-10.4); MONOCYTES # (AUTO) 0.5 X 10^3 (0.0-1.0); MONOCYTES % (AUTO) 8 % (0-12); NEUTROPHILS # (AUTO) 3.9 X 10^3 (1.8-7.8); NEUTROPHILS % (AUTO) 65 % (42-75); PLATELET COUNT 190 10^3/uL (130-400); RED BLOOD COUNT 3.62 10^6/uL (4.35-5.85); WHITE BLOOD COUNT 6.1 10^3/uL (4.3-11.0)
[2017-11-29 14:57] LABS: ALANINE AMINOTRANSFERASE 10 U/L (0-55); ALBUMIN 3.1 GM/DL (3.2-4.5); ALKALINE PHOSPHATASE 58 U/L (40-136); BILIRUBIN,TOTAL 1.4 MG/DL (0.1-1.0); BUN/CREATININE RATIO 17; CALCIUM 9.1 MG/DL (8.5-10.1); CARBON DIOXIDE 27 MMOL/L (21-32); CHLORIDE 101 MMOL/L (98-107); CREATININE SERUM 0.82 MG/DL (0.60-1.30); GFR ESTIMATED > 60; GLUCOSE 101 MG/DL (70-105); LIPASE 12 U/L (8-78); MAGNESIUM 1.9 MG/DL (1.8-2.4); POTASSIUM 3.9 MMOL/L (3.6-5.0); SODIUM 139 MMOL/L (135-145); TOTAL PROTEIN 6.7 GM/DL (6.4-8.2)
--- NOTE | 2017-11-29 15:10 | Diagnostic Imaging Report ---
INDICATION: Shortness of breath. EXAMINATION: Portable chest at 02:48 p.m. FINDINGS: Left subclavian Port-A-Cath tip projects over the SVC. Heart size and pulmonary vascularity are normal. There are no infiltrates, effusions or pneumothoraces. There is old granulomatous change in the right lower chest. IMPRESSION: No acute abnormalities of the chest. Dictated by: Dictated on workstation # [id number]
[2017-11-29] MEDS ORDERED: SUCR1ORA5 PO (15:43)
[2017-11-29] MEDS ORDERED: FAMO-119 PO (15:43)
[2017-11-29 17:15] LABS: CLARITY,URINE CLEAR; COLOR,URINE AMBER; GLUCOSE, URINE (UA) NEGATIVE (NEGATIVE); KETONES,URINE 2+ (NEGATIVE); LEUKOCYTE ESTERASE ,URINE 2+ (NEGATIVE); NITRITE,URINE NEGATIVE (NEGATIVE); PH,URINE 6 (5-9); PROTEIN,URINE 2+ (NEGATIVE); UROBILINOGEN,URINE 1 MG/DL (NORMAL)
[2017-11-29 17:22] LABS: BACTERIA,URINE NEGATIVE /HPF; BILIRUBIN,URINE 1+ (NEGATIVE)
[2017-11-29] MEDS ORDERED: NITROFURANTOIN 100 MG (MACROBID) CAPSULE PO ONE (17:45)
[2017-11-29] MEDS ORDERED: NITR-65 PO (18:04)
[2017-11-29 19:20] VITALS: BP 145/67
== END 2017-11-29 19:20 | disposition home or self-care (01) ==
LOC: EDUNIT# 13:49 → ER 13:50
DX: K21.9 Gastro-esophageal reflux disease without esophagitis (principal); I10 Essential (primary) hypertension; Z87.891 Personal history of nicotine dependence; Z90.49 Acquired absence of other specified parts of digestive tract; Z86.718 Personal history of other venous thrombosis and embolism; Z90.710 Acquired absence of both cervix and uterus; Z85.07 Personal history of malignant neoplasm of pancreas; Z92.21 Personal history of antineoplastic chemotherapy; Z92.3 Personal history of irradiation
CPT/HCPCS: 36415; 71045; 80053; 81000; 83690; 83735; 84484; 85025; 87088; 87804; 93005; 96361; 96374; 96375

== ENCOUNTER 2017-12-06 13:47 | Observation (INO) | payer MEDICARE ==
[~2017-12-06] VITALS: Ht 175.3 cm; Wt 61.6 kg
[~2017-12-06 13:47] MED LIST changes: +FAMO-119 PO; +NITR-65 PO; +SUCR1ORA5 PO
[2017-12-06 14:30] VITALS: BP 154/72
--- NOTE | 2017-12-06 14:40 | History & Physical ---
History of Present Illness History of Present Illness Reason for visit/HPI 82 yo F Pt seen at [facility] and directly admitted to [facility] for observation- c/o of vomiting for over a week. Pt not eating much nor drinking. She also has decreased urine output She was in ER about a week ago for vomiting and diagnosed with UTI. She has not been able to take her medications either. She complains of a dry,thick membrane on her tongue that makes her nauseated. She has had vomiting bile all morning She does have a history of pancreatic cancer than to her seems like it is progressing. Her last visit with Dr. Chin was about 3 weeks ago. Sees him monthly. She has lost 14 pounds in last 2 months. Down 41# in last 9 months. She feels like it is her pancreatic cancer progressing. She feels terrible. Ate jello at 1 or 2am. took a sip of pepsi - She would like to get rehydrated in the hospital then go to a SNU for therapy. Substernal pain- no pain right now though. Using a walker to ambulate. Date of Admission Dec 06, 2017 at 14:10 Date Seen by Provider: Dec 06, 2017 Time Seen by Provider: 13:30 I consulted on this patient on 12/06/17 14:36 Attending Physician Ang Montague MD Admitting Physician Ang Montague MD Consult Allergies and Home Medications Allergies Coded Allergies: codeine (Verified Adverse Reaction, Mild, NAUSEA, 07/30/08) meperidine (Verified Adverse Reaction, Mild, N/V, 01/17/10) morphine (Verified Adverse Reaction, Mild, NAUSEA, 07/30/08) Home Medications Calcium Carbonate 300 Mg Tab.chew, 300 MG PO TID PRN for INDIGESTION, (Reported) Doxazosin Mesylate 2 Mg Tablet, 2 MG PO BID, (Reported) Famotidine 20 Mg Tablet, 20 MG PO BID, (Reported) Lisinopril 40 Mg Tablet, 40 MG PO DAILY, (Reported) Metoprolol Tartrate 100 Mg Tablet, 100 MG PO HS, (Reported) TAKES ALONG WITH 50MG TABLET Metoprolol Tartrate 50 Mg Tablet, 50 MG PO HS, (Reported) TAKES ALONG WITH 100MG TABLET Morphine Sulfate 30 Mg Tablet.er, 30 MG PO Q12H, (Reported) Nitrofurantoin Monohyd/M-Cryst 100 Mg Capsule, 100 MG PO BID for 10 Days, ( Reported) #19 CAPSULES FILLED 11-30-17 Omeprazole Magnesium 20 Mg Tablet.dr, 20 MG PO DAILY, (Reported) Oxycodone HCl 5 Mg Tablet, 5 MG PO Q6H PRN for PAIN-BREAKTHROUGH, (Reported) Sucralfate 1 Gm Tablet, 1 GM PO TID, (Reported) Past Vymbecu-Eydalv-Dkyvvr Hx Patient Social History Former Smoker, Quit: Nov 15, 2001 Type Used: Cigarettes Recent Foreign Travel: No Contact w/other who traveled: No Recent Hopitalizations: No Immunizations Up To Date Tetanus Booster (TDap): Unknown Date of Pneumonia Vaccine: Oct 20, 2017 Date of Influenza Vaccine: Oct 20, 2017 Seasonal Allergies Seasonal Allergies: No Surgeries Yes (SPINE FUSION IN JANUARY 2017, VETEBRALPLASTY MARCH 2017) Abdominal, Appendectomy, Eye Surgery, Gallbladder, Hysterectomy, Vascular Surgery Respiratory No Cardiovascular Yes Deep Vein Thrombosis, Hypertension, Peripheral Vascular Neurological No Reproductive System Hx Reproductive Disorders: No Sexually 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 Disease: 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, 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 Genitourinary No Gastrointestinal Yes (PANCREATIC CANCER) Gastroesophageal Reflux Musculoskeletal Yes Degenerate Disk Disease, Arthritis Endocrine History of Endocrine Disorders: No HEENT History of HEENT Disorders: Yes HEENT Disorders: Cataract Cancer Yes Pancreatic Did You Recieve Any Treatments: Yes Type of Treatment: Chemotherapy, Radiation Psychosocial History of Psychiatric Problem: No Integumentary History of Skin or Integumenta: No (POST OP WOUND INFECTIONS, DEHISCENCE) Blood Transfusions History of Blood Disorders: No Adverse Reaction to a Blood Tr: No Family Medical History Family Hx: Acute lymphoblastic leukemia (ALL) G8 BROTHER Alzheimer's disease 19 FATHER Completed stroke 19 MOTHER Diabetes mellitus 19 MOTHER Review of Systems Review of Systems General: No Chills, No Night Sweats HEENT: No Head Aches, No Visual Changes Pulmonary: No Dyspnea, No Cough Cardiovascular: No: Chest Pain, Palpitations Gastrointestinal: Nausea, Vomiting, Abdominal Pain Genitourinary: No Dysuria, No Frequency Musculoskeletal: No: neck pain, shoulder pain Neurological: Weakness Physical Exam Vital Signs Vital Sign - Last 12Hours 12/06/17 14:30 Temp 97.7 Pulse 61 Resp 20 B/P (MAP) 154/72 (99) Pulse Ox 98 O2 Delivery Room Air Capillary Refill : General Appearance: Chronically ill, Mild Distress HEENT: PERRL/EOMI Neck: Full Range of Motion, Non Tender, Supple Respiratory: Chest Non Tender, Lungs Clear, Normal Breath Sounds, No Accessory Muscle Use, No Respiratory Distress Cardiovascular: Regular Rate, Rhythm Gastrointestinal: Non Tender, Soft, Distended Rectal: Deferred Back: Normal Inspection, No CVA Tenderness Extremity: Non Tender, No Calf Tenderness, Pedal Edema (hemosiderin depostion) Neurologic/Psychiatric: Alert, Oriented x3, Depressed Affect Skin: Warm/Dry Assessment/Plan Assessment/Plan Assessment/Plan 82 yo F intractable nausea/vomiting- zofran, IVF, ADAT pancreatic cancer- follows with Dr Chin deconditioning- PT/OT weight loss- due to the above issues- She has lost 14 pounds in last 2 months. Down 41# in last 9 months. Dispo: DNR discussed with pt in office today about her wishes; she would like to go to a SNU for strengthing and care assistance for deconditioning due to current intractable nausea/vomiting and weakness. I feel like with the weight loss and decline over the past couple months she is going to progressively get weaker. Will discuss hospice with patient as she likely has less than 6 months to live. Problems: ANG MONTAGUE MD Dec 06, 2017 14:40
[2017-12-06] MEDS: NS IV 1000 ML 1,000 ML IV SCH ×2 (14:56→23:01)
[2017-12-06] MEDS: CATHETER FLUSH 10 ML SYR IV PRN (14:57)
--- NOTE | 2017-12-06 15:19 | Physical Therapy Evaluation ---
PT Evaluation-General Medical Diagnosis Admission Date Dec 06, 2017 at 14:10 Medical Diagnosis: Pancreatic Cancer Onset Date: Dec 06, 2017 Therapy Diagnosis Therapy Diagnosis: generalized weakness/debility Height/Weight Height (Feet): 5 Height (Inches): 9.00 Weight (Pounds): 135 Weight (Ounces): 11.2 Precautions Precautions/Isolations: Standard Precautions Weight Bear Status Right Lower Extremity: Right Full Weight Bearing Left Lower Extremity: Left Full Weight Bearing Referral Physician: Ang Reese Reason for Referral: Evaluation/Treatment Medical History Pertinent Medical History: Arthritis, GERD, HTN Current History vomiting; direct admit from Dr. Reese's office Reviewed History: Yes Prior/Core FIM Prior Level of Function Functional Bee Measure 0=Not Assessed/NA 4=Minimal Assistance 1=Total Assistance 5=Supervision or Setup 2=Maximal Assistance 6=Modified [place] 3=Moderate Assistance 7=Complete Bee Bed Mobility: 6 Transfers (B,C,W/C) (FIM): 6 Gait: 6 PT Evaluation-Current Subjective Agrees to PT. Pain Numeric Pain Scale: 0-No Pain Location: No Pain Reported Pt/Family Goals Transfer to senior care facility for continued care Objective Patient Orientation: Normal For Age Problem Solving: Good ROM/Strength ROM Lower Extremities bilateral LE WNL Strength Lower Extremities right knee flexion/extension 3/5; hip flexion 3/5; DF/PF 4/5 left knee flexion/extension 3/5; hip flexion 3/5; DF/PF 4/5 Integumentary/Posture Integumentary refer to nursing notes Bowel Incontinence: No Bladder Incontinence: No Posture severe kyphosis Neuromuscular (Tone, Coordination, Reflexes) grossly intact Sensory Vision: Functional Hearing: Functional Sensation Right Lower Extremit: Intact Sensation Left Lower Extremity: Intact Transfers Functional [place] Measure 0=Not Assessed/NA 4=Minimal Assistance 1=Total Assistance 5=Supervision or Setup 2=Maximal Assistance 6=Modified [place] 3=Moderate Assistance 7=Complete Bee Transfers (B, C, W/C) (FIM): 4 Scootin Rollin Supine to/from Sit: 4 Sit to/from Stand: 5 Gait Mode of Locomotion: Walk Anticipated Mode of Locomotion: Walk Gait (FIM): 2 Distance (FIM): 4=379-86 ft Distance: 80' Gait Level of Assist: 4 Gait Persons Needed: 1 Gait Assistive Device: FWW Comments/Gait Description safe and functional with FWW; slow amita Balance Sitting Static: Normal Sitting Dynamic: Normal Standing Static: Normal Standing Dynamic: Normal Assessment/Needs 82 y.o. female, with 41# wt. loss in 9 months due to pancreatic cancer, will benefit from short term skilled PT to address functional strength and mobility to improve current LOF. Rehab Potential: Guarded PT [place] Targeting Supervisor Goals Group Home Goals PT [place] Targeting Supervisor Goals Time Frame: Dec 10, 2017 Transfers (B,C,W/C) (FIM): 5 Gait (FIM): 2 Gait distance (FIM): 7=871-75 ft Distance: 150' Gait Level of Assist: 5 Gait Assistive Device: FWW PT Plan Problem List Problem List: Activity Tolerance, Functional Strength Treatment/Plan Treatment Plan: Continue Plan of Care Treatment Plan: Bed Mobility, Education, Functional Activity Yordy, Functional Strength, Gait, Safety, Therapeutic Exercise, Transfers Treatment Duration: Dec 10, 2017 Frequency: 5 times per week Estimated Hrs Per Day: .25 hour per day Patient and/or Family Agrees t: Yes Discharge Recommendations Therapy D/C Recommendations: Intermediate Placement, Assisted (TCU/NH) Time/GCodes Time In: 1446 Time Out: 1503 Total Billed Treatment Time: 17 Total Billed Treatment 1 visit EVModC 17 min G Codes Necessary: Yes PT/OT Therapy GCodes Therapy Functional Limitation: Physical Therapy Test(s)/Tool used to determine: Level of Assistance Scale Functional Limitation-Current Charge Code: MOBCUR Modifier: CK Functional Limitation-Goal Charge Code: MOBGOAL Modifier: GNOZALES CESAR PT Dec 06, 2017 15:19
[2017-12-06 15:25] LABS: BASOPHILS % (AUTO) 0 % (0-10); EOSINOPHILS # (AUTO) 0.1 10^3/uL (0.0-0.3); EOSINOPHILS % (AUTO) 1 % (0-10); HEMATOCRIT 33 % (35-52); LYMPHOCYTES # (AUTO) 1.6 X 10^3 (1.0-4.0); LYMPHOCYTES % (AUTO) 23 % (12-44); MEAN CORPUSCULAR HEMOGLOBIN 30 PG (25-34); MEAN CORPUSCULAR HGB CONC 34 G/DL (32-36); MEAN CORPUSCULAR VOLUME 90 FL (80-99); MEAN PLATELET VOLUME 10.1 FL (7.4-10.4); MONOCYTES # (AUTO) 0.6 X 10^3 (0.0-1.0); MONOCYTES % (AUTO) 9 % (0-12); NEUTROPHILS # (AUTO) 4.7 X 10^3 (1.8-7.8); NEUTROPHILS % (AUTO) 68 % (42-75); PLATELET COUNT 182 10^3/uL (130-400); RED BLOOD COUNT 3.62 10^6/uL (4.35-5.85); RED CELL DISTRIBUTION WIDTH 15.4 % (10.0-14.5)
[2017-12-06] MEDS ORDERED: FAMO20TA3 PO (15:29)
[2017-12-06] MEDS ORDERED: LISI40TA PO (15:29)
[2017-12-06] MEDS ORDERED: METO50TA15 PO (15:30)
[2017-12-06] MEDS ORDERED: METO100T12 PO (15:30)
[2017-12-06] MEDS ORDERED: MORP-34 PO (15:38)
[2017-12-06] MEDS ORDERED: NITR-65 PO (15:38)
[2017-12-06] MEDS ORDERED: SUCR1TAB36 PO (15:38)
[2017-12-06] MEDS ORDERED: OMEP20TA33 PO (15:38)
[2017-12-06] MEDS ORDERED: OXYC-529 PO (15:38)
[2017-12-06 15:42] LABS: ALANINE AMINOTRANSFERASE 7 U/L (0-55); ALBUMIN 3.1 GM/DL (3.2-4.5); ALKALINE PHOSPHATASE 47 U/L (40-136); BILIRUBIN,TOTAL 1.5 MG/DL (0.1-1.0); BUN/CREATININE RATIO 18; CALCIUM 8.5 MG/DL (8.5-10.1); CARBON DIOXIDE 25 MMOL/L (21-32); CHLORIDE 101 MMOL/L (98-107); CREATININE SERUM 0.77 MG/DL (0.60-1.30); GFR ESTIMATED > 60; GLUCOSE 126 MG/DL (70-105); POTASSIUM 3.6 MMOL/L (3.6-5.0); SODIUM 137 MMOL/L (135-145); TOTAL PROTEIN 6.4 GM/DL (6.4-8.2)
[2017-12-06] MEDS ORDERED: CALC300T4 PO (15:42)
[2017-12-06 18:00] VITALS: BP 193/93
[2017-12-06] MEDS: ONDANSETRON 4 MG/2 ML (SDV) Z0FRAN IVP PRN ×2 (18:05→23:58)
[2017-12-06] MEDS ORDERED: PANTOPRAZOLE 40 MG/10 ML (PROTONIX) VIAL IV NR (18:15)
[2017-12-06] MEDS ORDERED: NON-FORMULARY MEDICATION 1 EA EA (Oxycodone HCl 5 MG) PO PRN (18:30)
[2017-12-06] MEDS ORDERED: NON-FORMULARY MEDICATION 1 EA EA (Calcium Carbonate (Tums) 300 MG) PO PRN (18:30)
[2017-12-06] MEDS ORDERED: CALCIUM CARBONATE 500 MG (TUMS) TAB.CHEW PO PRN (19:00)
[2017-12-06 20:25] VITALS: BP 186/81
[2017-12-06] MEDS: doxAzosin 2 MG (CARDURA) TAB PO SCH (20:25)
[2017-12-06] MEDS: SUCRALFATE 1 GM (CARAFATE) TAB PO SCH (20:25)
[2017-12-06] MEDS: ENOXAPARIN 40 MG/0.4 ML (LOVENOX) SYR SC SCH (20:26)
[2017-12-06] MEDS: morphine ER 30 MG (MS CONTIN) TAB PO SCH (20:26)
[2017-12-06] MEDS: meTOprolol TARTRATE 50 MG (LOPRESSOR) TAB PO SCH (20:26)
[2017-12-06] MEDS ORDERED: meTOprolol TARTRATE 50 MG (LOPRESSOR) TAB PO SCH (21:00)
[2017-12-07] VITALS: BP 157/75
[2017-12-07 04:15] VITALS: BP 164/75
[2017-12-07 05:46] LABS: BASOPHILS % (AUTO) 1 % (0-10); EOSINOPHILS # (AUTO) 0.1 10^3/uL (0.0-0.3); EOSINOPHILS % (AUTO) 2 % (0-10); HEMATOCRIT 28 % (35-52); HEMOGLOBIN 9.3 G/DL (11.5-16.0); LYMPHOCYTES % (AUTO) 37 % (12-44); MEAN CORPUSCULAR HEMOGLOBIN 30 PG (25-34); MEAN CORPUSCULAR HGB CONC 33 G/DL (32-36); MEAN CORPUSCULAR VOLUME 91 FL (80-99); MONOCYTES # (AUTO) 0.6 X 10^3 (0.0-1.0); MONOCYTES % (AUTO) 10 % (0-12); NEUTROPHILS # (AUTO) 2.8 X 10^3 (1.8-7.8); NEUTROPHILS % (AUTO) 51 % (42-75); PLATELET COUNT 146 10^3/uL (130-400); RED BLOOD COUNT 3.08 10^6/uL (4.35-5.85); WHITE BLOOD COUNT 5.4 10^3/uL (4.3-11.0)
[2017-12-07 06:06] LABS: ALANINE AMINOTRANSFERASE 7 U/L (0-55); ALBUMIN 2.4 GM/DL (3.2-4.5); ALKALINE PHOSPHATASE 40 U/L (40-136); BILIRUBIN,TOTAL 1.1 MG/DL (0.1-1.0); BUN/CREATININE RATIO 18; CALCIUM 7.6 MG/DL (8.5-10.1); CARBON DIOXIDE 24 MMOL/L (21-32); CHLORIDE 108 MMOL/L (98-107); CREATININE SERUM 0.68 MG/DL (0.60-1.30); GFR ESTIMATED > 60; GLUCOSE 99 MG/DL (70-105); POTASSIUM 3.4 MMOL/L (3.6-5.0); SODIUM 136 MMOL/L (135-145); TOTAL PROTEIN 4.9 GM/DL (6.4-8.2)
[2017-12-07] MEDS: NS IV 1000 ML 1,000 ML IV SCH ×4 (07:05→23:05)
[2017-12-07 08:00] VITALS: BP 126/64
[2017-12-07] MEDS: PANTOPRAZOLE 40 MG/10 ML (PROTONIX) VIAL IV SCH (08:55)
[2017-12-07] MEDS: doxAzosin 2 MG (CARDURA) TAB PO SCH ×2 (08:57→20:06)
[2017-12-07] MEDS: lisINopril 20 MG (ZESTRIL) TAB PO SCH (08:57)
[2017-12-07] MEDS: SUCRALFATE 1 GM (CARAFATE) TAB PO SCH ×3 (08:57→20:06)
[2017-12-07] MEDS: morphine ER 30 MG (MS CONTIN) TAB PO SCH ×2 (08:57→20:06)
[2017-12-07] MEDS: POTASSIUM CL 10MEQ/50ML IVPB 50 ML IV SCH ×3 (08:59→11:04)
[2017-12-07] MEDS ORDERED: NON-FORMULARY MEDICATION 1 EA EA (Lisinopril 40 MG) PO SCH (09:00)
--- NOTE | 2017-12-07 09:45 | Progress Note (SOAP) ---
Subjective Subjective Date Seen by Provider: Dec 07, 2017 Time Seen by Provider: 07:00 82 yo F Pt was unable to tolerate food and only had sips yesterday- low urine output- only 200 ml overnight. She ordered toast this AM. She still does not feel near baseline even with IVF and antinausea medication. Review of Systems General: No Night Sweats HEENT: No Head Aches Pulmonary: No Dyspnea Cardiovascular: No: Chest Pain Gastrointestinal: Nausea, Vomiting, Abdominal Pain Genitourinary: No Dysuria Musculoskeletal: No: neck pain, shoulder pain Neurological: Weakness Objective Exam Vital Signs Vital Sign - Last 12Hours 12/06/17 14:30 Temp 97.7 Pulse 61 Resp 20 B/P (MAP) 154/72 (99) Pulse Ox 98 O2 Delivery Room Air Capillary Refill : General Appearance: Mild Distress HEENT: PERRL/EOMI Neck: Non Tender, Supple Respiratory: Chest Non Tender, Lungs Clear, Normal Breath Sounds Cardiovascular: Regular Rate, Rhythm Gastrointestinal: Soft, Distended Extremity: No Calf Tenderness Neurologic/Psychiatric: Alert, Oriented x3 Skin: Warm/Dry Results Lab Laboratory Tests 12/06/17 15:15: White Blood Count 7.0, Red Blood Count 3.62L, Hemoglobin 11.0L, Hematocrit 33L, Mean Corpuscular Volume 90, Mean Corpuscular Hemoglobin 30, Mean Corpuscular Hemoglobin Concent 34, Red Cell Distribution Width 15.4H, Platelet Count 182, Mean Platelet Volume 10.1, Neutrophils (%) (Auto) 68, Lymphocytes (%) (Auto) 23 , Monocytes (%) (Auto) 9, Eosinophils (%) (Auto) 1, Basophils (%) (Auto) 0, Neutrophils # (Auto) 4.7, Lymphocytes # (Auto) 1.6, Monocytes # (Auto) 0.6, Eosinophils # (Auto) 0.1, Basophils # (Auto) 0.0, Sodium Level 137, Potassium Level 3.6, Chloride Level 101, Carbon Dioxide Level 25, Anion Gap 11, Blood Urea Nitrogen 14, Creatinine 0.77, Estimat Glomerular Filtration Rate > 60, BUN/ Creatinine Ratio 18, Glucose Level 126H, Calcium Level 8.5, Total Bilirubin 1.5H , Aspartate Amino Transf (AST/SGOT) 17, Alanine Aminotransferase (ALT/SGPT) 7, Alkaline Phosphatase 47, Total Protein 6.4, Albumin 3.1L 1/23/18 05:40: White Blood Count 5.4, Red Blood Count 3.08L, Hemoglobin 9.3L, Hematocrit 28L, Mean Corpuscular Volume 91, Mean Corpuscular Hemoglobin 30, Mean Corpuscular Hemoglobin Concent 33, Red Cell Distribution Width 15.0H, Platelet Count 146, Mean Platelet Volume 10.0, Neutrophils (%) (Auto) 51, Lymphocytes (%) (Auto) 37 , Monocytes (%) (Auto) 10, Eosinophils (%) (Auto) 2, Basophils (%) (Auto) 1, Neutrophils # (Auto) 2.8, Lymphocytes # (Auto) 2.0, Monocytes # (Auto) 0.6, Eosinophils # (Auto) 0.1, Basophils # (Auto) 0.0, Sodium Level 136, Potassium Level 3.4L, Chloride Level 108H, Carbon Dioxide Level 24, Anion Gap 4L, Blood Urea Nitrogen 12, Creatinine 0.68, Estimat Glomerular Filtration Rate > 60, BUN/ Creatinine Ratio 18, Glucose Level 99, Calcium Level 7.6L, Total Bilirubin 1.1H , Aspartate Amino Transf (AST/SGOT) 14, Alanine Aminotransferase (ALT/SGPT) 7, Alkaline Phosphatase 40, Total Protein 4.9L, Albumin 2.4L Assessment/Plan Assessment/Plan Assessment/Plan 82 yo F intractable nausea/vomiting- zofran, IVF, ADAT pancreatic cancer- follows with Dr Chin- seems to be progressing. deconditioning due to above- PT/OT, evaluate for Rehab. Weight loss- due to above issues- down 14 pounds in last 2 months, 41# in last 9 months. Dispo: DNR; Pt would like to go to a SNU for strengthing and care assistance for deconditioning due to current intractable nausea/vomiting and weakness. Inpatient rehab to evaluate pt Will monitor how pt does with eating and drinking today- Problems: Clinical Quality Measures DVT/VTE Risk/Contraindication: Risk Factor Score Per Nursin RFS Level Per Nursing on Admit: 4+=Very High DENY MONTAGUE MD Dec 07, 2017 09:45
--- NOTE | 2017-12-07 09:54 | Physical Therapy Daily Note ---
PT Daily Note-Current Subjective Patient is sitting in recliner and agrees to PT. Pain Numeric Pain Scale: 0-No Pain Location: No Pain Reported Mental Status Patient Orientation: Normal For Age Attachments: IV Transfers Functional [place] Measure 0=Not Assessed/NA 4=Minimal Assistance 1=Total Assistance 5=Supervision or Setup 2=Maximal Assistance 6=Modified [place] 3=Moderate Assistance 7=Complete IndependenceIRFPAI Quality Coding Scale 6 Independent with activity with or without an assistive device 5 Patient requires set up or clean up by helper. Patient completes activity by themselves 4 Supervision or touching assist (CGA). [place] provide cues , steadying assist 3 The helper provides less than half the effort to complete the activity 2 The helper provides more than half the effort to complete the activity 1 Dependent. The helper does all the effort to complete an activity 7 Patient refused to complete or attempt activity 9 The patient did not perform the activity before the current illness or injury 88 Not attempted due to Medical conditions or safety concerns Transfers (B, C, W/C) (FIM): 3 Scootin Supine to/from Sit: 3 Sit to/from Stand: 5 Patient requires mod assist to assist bilateral LE's into bed on this date. Weight Bearing Right Lower Extremity: Right Full Weight Bearing Left Lower Extremity: Left Full Weight Bearing Gait Training Gait (FIM): 5 Distance (FIM): 3=150 ft Distance: 200' Gait Level of Assist: 5 Gait Assistive Device: FWW very slow, methodical gait sequence Exercises Supine Ex: Ankle pumps, Quad Set, Heel Slides, Straight leg raise Supine Reps: 15 (2 sets AAROM due to weakness and fatigue) Seated Therapy Exercises: Ankle pumps, Long arc quads Seated Reps: 15 (2 sets AAROM due to weakness and fatigue) Assessment Patient tolerates minimal activity due to diagnosis, fatigue, weakness, etc. From a PT stand point, patient would benefit from extended care facility to build strength and improve mobility at a slower pace vs. ARU. PT Tube Knitter Goals Tube Knitter Goals PT Group Home Goals Time Frame: Dec 10, 2017 Transfers (B,C,W/C) (FIM): 5 Gait (FIM): 2 Gait distance (FIM): 2=455-22 ft Distance: 150' Gait Level of Assist: 5 Gait Assistive Device: FWW PT Plan Treatment/Plan Treatment Plan: Continue Plan of Care Treatment Plan: Bed Mobility, Education, Functional Activity Yordy, Functional Strength, Gait, Safety, Therapeutic Exercise, Transfers Treatment Duration: Dec 10, 2017 Frequency: 5 times per week Estimated Hrs Per Day: .25 hour per day Patient and/or Family Agrees t: Yes Time/GCodes Time In: 915 Time Out: 938 Total Billed Treatment Time: 23 Total Billed Treatment 1 visit GT 13 min EX 10 min PT/OT Therapy GCodes Therapy Functional Limitation: Physical Therapy Test(s)/Tool used to determine: Level of Assistance Scale Functional Limitation-Current Charge Code: MOBCUR Modifier: CK Functional Limitation-Goal Charge Code: MOBGOAL Modifier: GONZALES CESAR PT Dec 07, 2017 09:54
[2017-12-07 12:00] VITALS: BP 156/72
[2017-12-07 16:50] VITALS: BP 151/76
[2017-12-07] MEDS: ENOXAPARIN 40 MG/0.4 ML (LOVENOX) SYR SC SCH (20:06)
[2017-12-07] MEDS: meTOprolol TARTRATE 50 MG (LOPRESSOR) TAB PO SCH (20:11)
[2017-12-07 21:00] VITALS: BP 140/63
[2017-12-08] VITALS: BP 153/75
[2017-12-08] MEDS: ONDANSETRON 4 MG/2 ML (SDV) Z0FRAN IVP PRN ×2 (02:12→07:55)
[2017-12-08] MEDS: NS IV 1000 ML 1,000 ML IV SCH ×3 (05:40→20:20)
[2017-12-08] MEDS: morphine ER 30 MG (MS CONTIN) TAB PO SCH ×2 (07:54→20:18)
[2017-12-08 08:00] VITALS: BP 189/79
--- NOTE | 2017-12-08 09:05 | Progress Note (SOAP) ---
Subjective Subjective Date Seen by Provider: Dec 08, 2017 Time Seen by Provider: 09:01 82 yo F Pt is doing worse. Abdominal pain right now is bothering her. She has not had a bowel movement- will give her miralax as this works for her at home. She feels weak but want PT to come by and work with her as getting her strength back is a priority for her. She would like to try and eat but does not feel like eating- Review of Systems General: No Night Sweats HEENT: No Head Aches Pulmonary: No Dyspnea Cardiovascular: No: Chest Pain Gastrointestinal: Nausea, Vomiting, Abdominal Pain Genitourinary: No Dysuria Musculoskeletal: No: neck pain, shoulder pain Neurological: Weakness Objective Exam Vital Signs Vital Signs Date Time Temp Pulse Resp B/P (MAP) Pulse Ox O2 Delivery O2 Flow Rate FiO2 12/08/17 08:25 97.2 12/08/17 08:00 98.3 50 22 189/79 (115) 96 Room Air 12/08/17 00:00 97.2 52 16 153/75 (101) 95 Room Air 12/07/17 21:00 98.5 55 18 140/63 (88) 95 Room Air 12/07/17 20:00 Room Air 12/07/17 16:50 97.7 58 18 151/76 (101) 95 Room Air 12/07/17 12:00 98.0 59 20 156/72 (100) 95 Room Air I & O 12/08/17 07:00 Intake Total 3085 ml Output Total 600 ml Balance 2485 ml General Appearance: Mild Distress HEENT: PERRL/EOMI Neck: Non Tender, Supple Respiratory: Chest Non Tender, Lungs Clear, Normal Breath Sounds Cardiovascular: Regular Rate, Rhythm Gastrointestinal: Soft, Distended Rectal: Deferred Back: Normal Inspection, No CVA Tenderness Extremity: No Calf Tenderness Neurologic/Psychiatric: Alert, Oriented x3 Skin: Warm/Dry Assessment/Plan Assessment/Plan Assessment/Plan 82 yo F intractable nausea/vomiting- zofran, IVF, ADAT pancreatic cancer- follows with Dr Chin- seems to be progressing. CT abdomen 09/13/17- pancreatic head mass or common duct mass has continued to increased now measuring 4.5 x 4.2 cm. deconditioning due to above- PT/OT, evaluate for Rehab. Weight loss- due to above issues- down 14 pounds in last 2 months, 41# in last 9 months. Dispo: DNR; Did not qualify for rehab. Hospice consult placed today- Consider home this afternoon on hospice; otherwise will send home tomorrow on hospice pending their evaluation. Will continue to monitor how pt does with eating and drinking today- Problems: Clinical Quality Measures DVT/VTE Risk/Contraindication: Risk Factor Score Per Nursin RFS Level Per Nursing on Admit: 4+=Very High DENY MONTAGUE MD Dec 08, 2017 09:05
[2017-12-08] MEDS: SUCRALFATE 1 GM (CARAFATE) TAB PO SCH ×3 (09:21→20:18)
[2017-12-08] MEDS: lisINopril 20 MG (ZESTRIL) TAB PO SCH (09:21)
[2017-12-08] MEDS: PANTOPRAZOLE 40 MG/10 ML (PROTONIX) VIAL IV SCH (09:22)
[2017-12-08] MEDS: doxAzosin 2 MG (CARDURA) TAB PO SCH ×2 (09:22→20:18)
[2017-12-08] MEDS: POLYETHYLENE GLYCOL 17 GM (MIRALAX) PACK PO SCH (09:23)
[2017-12-08] MEDS: CATHETER FLUSH 10 ML SYR IV PRN (09:23)
--- NOTE | 2017-12-08 11:29 | Physical Therapy Daily Note ---
PT Daily Note-Current Subjective Pt sitting in recliner upon arrival. Pt agrees to PT. Pain Numeric Pain Scale: 6 Location: Right, Left Location Body Site: Knee Pain Description: Tightness Mental Status Patient Orientation: Person, Place, Situation Attachments: IV Transfers Functional [place] Measure 0=Not Assessed/NA 4=Minimal Assistance 1=Total Assistance 5=Supervision or Setup 2=Maximal Assistance 6=Modified [place] 3=Moderate Assistance 7=Complete IndependenceIRFPAI Quality Coding Scale 6 Independent with activity with or without an assistive device 5 Patient requires set up or clean up by helper. Patient completes activity by themselves 4 Supervision or touching assist (CGA). [place] provide cues , steadying assist 3 The helper provides less than half the effort to complete the activity 2 The helper provides more than half the effort to complete the activity 1 Dependent. The helper does all the effort to complete an activity 7 Patient refused to complete or attempt activity 9 The patient did not perform the activity before the current illness or injury 88 Not attempted due to Medical conditions or safety concerns Scootin Sit to/from Stand: 5 Weight Bearing Right Lower Extremity: Right Full Weight Bearing Left Lower Extremity: Left Full Weight Bearing Gait Training Distance (FIM): 3=150 ft Distance: 200' Gait Level of Assist: 5 Gait Persons Needed: 1 Gait Assistive Device: FWW Exercises Seated Therapy Exercises: Ankle pumps, Long arc quads, Hip flexion, Kicking activity, Glut set Seated Reps: 15 Treatments Pt transfers from recliner to standing using FWW at [facility]. Pt ambulates using FWW in hallway at [facility]. Pt returns to recliner to rest followed by Seated Ex in recliner. Pt resting in recliner at end of tx with all needs met. Assessment Current Status: Good Progress Pt is getting stronger and has better endurance as she is feeling better. PT Oracle Reports Developer Goals Oracle Reports Developer Goals PT Oracle Reports Developer Goals Time Frame: Dec 10, 2017 Transfers (B,C,W/C) (FIM): 5 Gait (FIM): 2 Gait distance (FIM): 7=551-69 ft Distance: 150' Gait Level of Assist: 5 Gait Assistive Device: FWW PT Plan Problem List Problem List: Activity Tolerance, Functional Strength, Gait Treatment/Plan Treatment Plan: Continue Plan of Care Treatment Plan: Bed Mobility, Education, Functional Activity Yordy, Functional Strength, Gait, Safety, Therapeutic Exercise, Transfers Treatment Duration: Dec 10, 2017 Frequency: 5 times per week Estimated Hrs Per Day: .25 hour per day Patient and/or Family Agrees t: Yes Safety Risks/Education Patient Education: Gait Training, Transfer Techniques, Correct Positioning, Safety Issues Teaching Recipient: Patient Teaching Methods: Discussion Response to Teaching: Verbalize Understanding Time/GCodes Time In: 1050 Time Out: 1113 Total Billed Treatment Time: 23 Total Billed Treatment 1, GT (12m) & EX (11m) PT/OT Therapy GCodes Therapy Functional Limitation: Physical Therapy Test(s)/Tool used to determine: Level of Assistance Scale Functional Limitation-Current Charge Code: MOBCUR Modifier: CK Functional Limitation-Goal Charge Code: MOBGOAL Modifier: [place] PROGRAM COORDINATOR Dec 08, 2017 11:29
[2017-12-08 16:00] VITALS: BP 162/74
[2017-12-08] MEDS: ENOXAPARIN 40 MG/0.4 ML (LOVENOX) SYR SC SCH (20:18)
[2017-12-08] MEDS: meTOprolol TARTRATE 50 MG (LOPRESSOR) TAB PO SCH (20:19)
[2017-12-09] VITALS: BP 130/70
[2017-12-09] MEDS: NS IV 1000 ML 1,000 ML IV SCH (04:17)
[2017-12-09 08:00] VITALS: BP 117/65
[2017-12-09] MEDS ORDERED: MORP-34 PO (08:56)
--- NOTE | 2017-12-09 08:59 | Discharge Inst-Simple/Standard ---
Discharge Inst-Standard Patient Instructions/Follow Up Plan of Care/Instructions/FU: Prescription for Morphine Advance diet as tolerated stay active with ambulating as tolerated Continue exercises while seated. Activity as Tolerated: Yes Discharge Diet: Eat Small Frequent Meals [facility] to [facility] For: call [facility] with new non emergent concerns DENY MONTAGUE MD Dec 09, 2017 08:59
[2017-12-09] MEDS: doxAzosin 2 MG (CARDURA) TAB PO SCH (09:13)
[2017-12-09] MEDS: PANTOPRAZOLE 40 MG/10 ML (PROTONIX) VIAL IV SCH (09:13)
[2017-12-09] MEDS: lisINopril 20 MG (ZESTRIL) TAB PO SCH (09:13)
[2017-12-09] MEDS: SUCRALFATE 1 GM (CARAFATE) TAB PO SCH (09:13)
[2017-12-09] MEDS: morphine ER 30 MG (MS CONTIN) TAB PO SCH (09:19)
[2017-12-09] MEDS: POLYETHYLENE GLYCOL 17 GM (MIRALAX) PACK PO SCH (09:19)
--- NOTE | 2017-12-09 11:31 | Physical Therapy Daily Note ---
PT Daily Note-Current Subjective Patient is in bed and agrees to PT. Pain Numeric Pain Scale: 0-No Pain Location: No Pain Reported Mental Status Patient Orientation: Normal For Age Transfers Functional [place] Measure 0=Not Assessed/NA 4=Minimal Assistance 1=Total Assistance 5=Supervision or Setup 2=Maximal Assistance 6=Modified [place] 3=Moderate Assistance 7=Complete IndependenceIRFPAI Quality Coding Scale 6 Independent with activity with or without an assistive device 5 Patient requires set up or clean up by helper. Patient completes activity by themselves 4 Supervision or touching assist (CGA). [place] provide cues , steadying assist 3 The helper provides less than half the effort to complete the activity 2 The helper provides more than half the effort to complete the activity 1 Dependent. The helper does all the effort to complete an activity 7 Patient refused to complete or attempt activity 9 The patient did not perform the activity before the current illness or injury 88 Not attempted due to Medical conditions or safety concerns Transfers (B, C, W/C) (FIM): 5 Scootin Rollin Supine to/from Sit: 5 Sit to/from Stand: 5 Bed to/from Chair: 5 Weight Bearing Right Lower Extremity: Right Full Weight Bearing Left Lower Extremity: Left Full Weight Bearing Gait Training Gait (FIM): 5 Distance (FIM): 3=150 ft Distance: 225' Gait Level of Assist: 5 Gait Assistive Device: FWW slow, steady gait sequence Exercises Seated Therapy Exercises: Ankle pumps, Long arc quads, Hip flexion, Hip abd/add Seated Reps: 20 (2 sets) Assessment Patient tolerated treatment and will dismiss to home on hospice on this date. PT Long-Term Goals Shaving Machine Operator Goals PT Long-Term Goals Time Frame: Dec 10, 2017 Transfers (B,C,W/C) (FIM): 5 Gait (FIM): 2 Gait distance (FIM): 8=462-06 ft Distance: 150' Gait Level of Assist: 5 Gait Assistive Device: FWW PT Plan Treatment/Plan Treatment Plan: Discontinue PT Treatment Plan: Bed Mobility, Education, Functional Activity Yordy, Functional Strength, Gait, Safety, Therapeutic Exercise, Transfers Treatment Duration: Dec 10, 2017 Frequency: 5 times per week Estimated Hrs Per Day: .25 hour per day Patient and/or Family Agrees t: Yes Time/GCodes Time In: 1101 Time Out: 1115 Total Billed Treatment Time: 14 Total Billed Treatment 1 visit FA 14 min PT/OT Therapy GCodes Therapy Functional Limitation: Physical Therapy Test(s)/Tool used to determine: Level of Assistance Scale Functional Limitation-Current Charge Code: MOBCUR Modifier: MAGNUS Functional Limitation-Goal Charge Code: MOBGOMAURO Modifier: ARLIN Functional Limitation-D/C Charge Codes: MOBDC Modifier: GONZALES CESAR PT Dec 09, 2017 11:31
[2017-12-09 13:52] VITALS: BP 117/65
--- NOTE | 2017-12-09 17:56 | Discharge Summary ---
Diagnosis/Chief Complaint Date of Admission Dec 06, 2017 at 15:00 Date of Discharge Dec 09, 2017 at 13:05 Discharge Date: Dec 09, 2017 Discharge Time: 1200 Reason Hospital Visit 82 yo F Pt seen at [facility] and directly admitted to [facility] for observation- c/o of vomiting for over a week. Pt not eating much nor drinking. She also has decreased urine output She was in ER about a week ago for vomiting and diagnosed with UTI. She has not been able to take her medications either. She complains of a dry,thick membrane on her tongue that makes her nauseated. She has had vomiting bile all morning She does have a history of pancreatic cancer than to her seems like it is progressing. Her last visit with Dr. Chin was about 3 weeks ago. Sees him monthly. She has lost 14 pounds in last 2 months. Down 41# in last 9 months. She feels like it is her pancreatic cancer progressing. She feels terrible. Ate jello at 1 or 2am. took a sip of pepsi - She would like to get rehydrated in the hospital then go to a SNU for therapy. Substernal pain- no pain right now though. Using a walker to ambulate. Discharge Summary Hospital Course Labs Laboratory Tests 12/07/17 05:40: Red Blood Count 3.08L, Hemoglobin 9.3L, Hematocrit 28L, Red Cell Distribution Width 15.0H, Potassium Level 3.4L, Chloride Level 108H, Anion Gap 4L, Calcium Level 7.6L, Total Bilirubin 1.1H, Total Protein 4.9L, Albumin 2.4L Procedures None. Discharge Physical Examination Allergies: Coded Allergies: codeine (Verified Adverse Reaction, Mild, NAUSEA, 07/30/08) meperidine (Verified Adverse Reaction, Mild, N/V, 01/17/10) morphine (Verified Adverse Reaction, Mild, NAUSEA, 07/30/08) Vitals & I&Os Vital Signs Date Time Temp Pulse Resp B/P (MAP) Pulse Ox O2 Delivery O2 Flow Rate FiO2 12/09/17 13:52 66 20 117/65 95 Room Air 12/09/17 08:00 96.6 General Appearance: Alert, Oriented X3, Cooperative HEENT: Atraumatic, PERRLA Respiratory: Clear to Auscultation Cardiovascular: Regular Rate Abdominal: Normal Bowel Sounds, Soft Neuro: Normal Speech Psych/Mental Status: Mental Status NL, Mood NL Discharge Home Medications Reviewed and agree with Discharge Medication list on patient's Discharge Instruction sheet Condition at Discharge improved- prognosis poor though as she has progressing pancreatic cancer Instructions to Patient/Family Please see electronic discharge instructions given to patient. Clinical Quality Measures Type of Care: Type of Care: Hospice Care (Home) DVT/VTE Risk/Contraindication: Risk Factor Score Per Nursin RFS Level Per Nursing on Admit: 4+=Very High DENY MONTAGUE MD Dec 09, 2017 17:56
[2017-12-10] MEDS ORDERED: PANTOPRAZOLE 40 MG (PROTONIX) TAB PO SCH (07:00)
== END 2017-12-09 08:57 | disposition hospice, home (50) ==
LOC: 4TH 14:10 → UNDOADMOB 14:10 → 4TH 14:20
PROVIDERS: ADMIT Family Medicine; ATTEND Family Medicine
DX: R11.2 Nausea with vomiting, unspecified (principal); C25.9 Malignant neoplasm of pancreas, unspecified; R63.4 Abnormal weight loss; Z66 Do not resuscitate; K21.9 Gastro-esophageal reflux disease without esophagitis; I10 Essential (primary) hypertension; I73.9 Peripheral vascular disease, unspecified; Z86.718 Personal history of other venous thrombosis and embolism; Z87.891 Personal history of nicotine dependence; Z92.3 Personal history of irradiation; Z92.21 Personal history of antineoplastic chemotherapy
CPT/HCPCS: 36415; 80053; 85025; 99211; G0378

== ENCOUNTER 2018-01-02 22:11 | Emergency (ER) | payer MEDICARE ==
[~2018-01-02] VITALS: Ht 175.3 cm; Wt 61.6 kg
[~2018-01-02 22:11] MED LIST changes: +CALC300T4 PO; +FAMO20TA3 PO; +METO100T12 PO; +METO50TA15 PO; +MORP-34 PO; +OMEP20TA33 PO; +SUCR1TAB36 PO
[2018-01-02] MEDS ORDERED: morphine INJ 10 MG/ML 1ML (SYR OR VIAL) IV STA (22:20)
[2018-01-02] MEDS ORDERED: fentaNYL INJECTION 100 MCG/2 ML AMP ONE (22:22)
--- NOTE | 2018-01-02 22:24 | ED Chest Pain ---
General Chief Complaint: Chest Pain Stated Complaint: CP Source: patient, EMS Exam Limitations: no limitations History of Present Illness Date Seen by Provider: Jan 02, 2018 Time Seen by Provider: 22:13 Initial Comments Patient presents to the ER by EMS with a chief complaint of just prior to arrival she began to experience some substernal sharp solid constant pain in the middle of her chest and is worse with deep inspiration or pushing on her chest. She denies any history of heart disease but she does have a history of pancreatic cancer for which she stopped chemotherapy about 6 months ago and is now under hospice care for this. Patient does not wish to be resuscitated in the event of a cardiopulmonary arrest. She's had shortness of breath initially but by the time EMS brought her and she is denying any shortness of breath presently. She has no cough, fevers or chills, nausea or vomiting. She has some numbness in her left arm and shoulder. Nothing in her neck or jaw. She had no sweats. She initially rated her pain as 10 out of 10 that is presently at 8 out of 10. EMS as they got to the four tablets of aspirin in her as well as started an IV in her left antecubital space. Her blood pressure was low 80 systolic. Allergies and Home Medications Allergies Coded Allergies: codeine (Verified Adverse Reaction, Mild, NAUSEA, 07/30/08) meperidine (Verified Adverse Reaction, Mild, N/V, 01/17/10) morphine (Verified Adverse Reaction, Mild, NAUSEA, 07/30/08) Home Medications Calcium Carbonate 300 Mg Tab.chew, 300 MG PO TID PRN for INDIGESTION, (Reported) Doxazosin Mesylate 2 Mg Tablet, 2 MG PO BID, (Reported) Famotidine 20 Mg Tablet, 20 MG PO BID, (Reported) Lisinopril 40 Mg Tablet, 40 MG PO DAILY, (Reported) Metoprolol Tartrate 100 Mg Tablet, 100 MG PO HS, (Reported) TAKES ALONG WITH 50MG TABLET Metoprolol Tartrate 50 Mg Tablet, 50 MG PO HS, (Reported) TAKES ALONG WITH 100MG TABLET Morphine Sulfate 30 Mg Tablet.er, 30 MG PO Q12H, #60 Prescribed by: DENY MONTAGUE on 12/09/17 0856 Omeprazole Magnesium 20 Mg Tablet.dr, 20 MG PO DAILY, (Reported) Oxycodone HCl 5 Mg Tablet, 5 MG PO Q6H PRN for PAIN-BREAKTHROUGH, (Reported) Sucralfate 1 Gm Tablet, 1 GM PO TID, (Reported) Review of Systems Constitutional: No chills, No diaphoresis EENTM: No Eye Pain, No Mouth Pain Respiratory: Denies Cough, Shortness of Air (initially but not presently), Denies Wheezing Cardiovascular: See HPI, Chest Pain, Denies Edema, Denies Irregular Heart Rate , Denies Palpitations, Denies Syncope Gastrointestinal: Denies Constipated, Denies Diarrhea, Denies Nausea Genitourinary: Denies Burning, Denies Discharge Musculoskeletal: No back pain, No joint pain Skin: No pruritus, No rash Psychiatric/Neurological: Denies Headache, Numbness (left arm), Paresthesia Past Qbietnt-Kuvjqo-Lxizpy Hx Patient Social History Alcohol Use: Denies Use Smoking Status: Former Smoker Type Used: Cigarettes Former Smoker, Quit: Nov 15, 2001 Recent Hopitalizations: No Immunizations Up To Date Tetanus Booster (TDap): Unknown Date of Pneumonia Vaccine: Oct 20, 2017 Date of Influenza Vaccine: Oct 20, 2017 Seasonal Allergies Seasonal Allergies: No Surgeries History of Surgeries: Yes (SPINE FUSION IN JANUARY 2017, VETEBRALPLASTY MARCH 2017) Surgeries: Abdominal, Appendectomy, Eye Surgery, Gallbladder, Hysterectomy, Vascular Surgery Respiratory History of Respiratory Disorde: No Cardiovascular History of Cardiac Disorders: Yes Cardiac Disorders: Deep Vein Thrombosis, Hypertension, Peripheral Vascular Neurological History of Neurological Disord: No Reproductive System Hx Reproductive Disorders: No Sexually Transmitted Disease: No [employer]IAN History: Hysterectomy, Menopausal Genitourinary History of Genitourinary Disor: Yes Genitourinary Disorders: UTI-Chronic Gastrointestinal History of Gastrointestinal Di: Yes (PANCREATIC CANCER) Gastrointestinal Disorders: Gastroesophageal Reflux Musculoskeletal History of Musculoskeletal Dis: Yes Musculoskeletal Disorders: Back Injury, Chronic Back Pain Endocrine History of Endocrine Disorders: No HEENT History of HEENT Disorders: Yes HEENT Disorders: Cataract Cancer History of Cancer: Yes Cancer: Pancreatic Did You Recieve Any Treatments: Yes Type of Tx Receive: Chemotherapy Psychosocial History of Psychiatric Problem: No Integumentary History of Skin or Integumenta: No Blood Transfusions History of Blood Disorders: No Adverse Reaction to a Blood Tr: No Family Medical History Family Medial History: Acute lymphoblastic leukemia (ALL) G8 BROTHER Alzheimer's disease 19 FATHER Completed stroke 19 MOTHER Diabetes mellitus 19 MOTHER Physical Exam Vital Signs Vital Signs - First Documented Capillary Refill : General Appearance: Moderate Distress, Thin HEENT: PERRL/EOMI, Normal ENT Inspection, Pharynx Normal Neck: Full Range of Motion, Supple Respiratory: Normal Breath Sounds, Accessory Muscle Use (mild), Decreased Breath Sounds, Respiratory Distress (mild), Wheezing (mild), Other (the chest pain is recreated by palpation to her sternum) Cardiovascular: Regular Rate, Rhythm, Normal Peripheral Pulses Gastrointestinal: Normal Bowel Sounds, Non Tender, Soft Neurologic/Psychiatric: Alert, Oriented x3, No Motor/Sensory Deficits Skin: Normal Color, Warm/Dry Progress/Results/Core Measures Results/Orders Lab Results Laboratory Tests Test 01/02/18 21:54 01/02/18 22:20 Range/Units Prothrombin Time 14.6 12.2-14.7 SEC INR Comment 1.1 0.8-1.4 Activated Partial Thromboplast Time 36 H 24-35 SEC Sodium Level 140 135-145 MMOL/L Potassium Level 2.9 L 3.6-5.0 MMOL/L Chloride Level 100 98-107 MMOL/L Carbon Dioxide Level 22 21-32 MMOL/L Anion Gap 18 H 5-14 MMOL/L Blood Urea Nitrogen 13 7-18 MG/DL Creatinine 0.78 0.60-1.30 MG/DL Estimat Glomerular Filtration Rate > 60 BUN/Creatinine Ratio 17 Glucose Level 83 70-105 MG/DL Calcium Level 7.8 L 8.5-10.1 MG/DL Magnesium Level 1.7 L 1.8-2.4 MG/DL Total Bilirubin 2.5 H 0.1-1.0 MG/DL Aspartate Amino Transf (AST/SGOT) 75 H 5-34 U/L Alanine Aminotransferase (ALT/SGPT) 32 0-55 U/L Alkaline Phosphatase 556 H 40-136 U/L Myoglobin 60.4 10.0-92.0 NG/ML Troponin I < 0.30 <0.30 NG/ML B-Type Natriuretic Peptide 78.3 <100.0 PG/ML Total Protein 4.5 L 6.4-8.2 GM/DL Albumin 2.3 L 3.2-4.5 GM/DL Amylase Level 15 L 25-125 U/L Lipase < 4 L 8-78 U/L White Blood Count 8.3 4.3-11.0 10^3/uL Red Blood Count 3.36 L 4.35-5.85 10^6/uL Hemoglobin 10.3 L 11.5-16.0 G/DL Hematocrit 31 L 35-52 % Mean Corpuscular Volume 91 80-99 FL Mean Corpuscular Hemoglobin 31 25-34 PG Mean Corpuscular Hemoglobin Concent 34 32-36 G/DL Red Cell Distribution Width 15.4 H 10.0-14.5 % Platelet Count 193 130-400 10^3/uL Mean Platelet Volume 9.9 7.4-10.4 FL Neutrophils (%) (Auto) 51 42-75 % Lymphocytes (%) (Auto) 45 H 12-44 % Monocytes (%) (Auto) 2 0-12 % Eosinophils (%) (Auto) 2 0-10 % Basophils (%) (Auto) 0 0-10 % Neutrophils # (Auto) 4.2 1.8-7.8 X 10^3 Lymphocytes # (Auto) 3.7 1.0-4.0 X 10^3 Monocytes # (Auto) 0.1 0.0-1.0 X 10^3 Eosinophils # (Auto) 0.2 0.0-0.3 10^3/uL Basophils # (Auto) 0.0 0.0-0.1 10^3/uL My Orders Orders - MAYNOR BONNER Cbc With Automated Diff (01/02/18 22:20) Magnesium (01/02/18 22:20) Chest 1 View, Ap/Pa Only (01/02/18 22:20) Ekg Tracing (01/02/18 22:20) Cardiac Profile 1 (01/02/18 22:20) Comprehensive Metabolic Panel (01/02/18 22:20) Myoglobin Serum (01/02/18 22:20) Protime With Inr (01/02/18 22:20) Partial Thromboplastin Time (01/02/18 22:20) O2 (01/02/18 22:20) Monitor-Rhythm Ecg Trace Only (01/02/18 22:20) Lipid Panel (01/03/18 06:00) Aspirin Chewable Tablet (Baby Aspirin Ch (01/02/18 22:30) Morphine Injection (Morphine Injection (01/02/18 22:20) Saline Lock/Iv-Start (01/02/18 22:20) Lipase (01/02/18 22:20) Amylase (01/02/18 22:20) BNP (01/02/18 22:20) Fentanyl Injection (Sublimaze Injection (01/02/18 22:30) Fentanyl Injection (Sublimaze Injection (01/02/18 22:22) Saline Lock/Iv-Start (01/02/18 22:33) Ns Iv 1000 Ml (Sodium Chloride 0.9%) (01/02/18 22:45) Fentanyl Injection (Sublimaze Injection (01/02/18 23:00) Ns Iv 1000 Ml (Sodium Chloride 0.9%) (01/02/18 22:48) Ns Iv 1000 Ml (Sodium Chloride 0.9%) (01/02/18 23:00) Potassium Cl 10meq/50ml Ivpb (Kcl 10 Meq (01/02/18 23:45) Magnesium 1 Gm/100 Ml Ivpb (Magnesium Nunes (01/02/18 23:45) Medications Given in ED Current Medications Medications Dose Ordered Sig/Fracisco Route Start Time Stop Time Status Last Admin Dose Admin Aspirin 162 mg ONCE ONCE PO 01/02/18 22:30 01/02/18 22:31 DC 01/02/18 22:26 162 MG Fentanyl Citrate 25 mcg ONCE ONCE IVP 01/02/18 22:30 01/02/18 22:31 DC 01/02/18 22:25 25 MCG Fentanyl Citrate 50 mcg ONCE ONCE IVP 01/02/18 23:00 01/02/18 23:01 DC 01/02/18 22:53 50 MCG Sodium Chloride 1,846.56 ml @ 923.28 mls/hr PRN PRN IV 01/02/18 22:45 01/02/18 22:49 DC 01/02/18 22:36 923.28 MLS/HR Vital Signs/I&O Vital Sign - Last 12Hours 01/02/18 01/02/18 01/02/18 01/02/18 22:15 22:15 22:15 22:44 Temp 97.8 Pulse 65 63 Resp 14 15 B/P (MAP) 77/45 (56) 90/43 (59) Pulse Ox 98 98 99 O2 Delivery Nasal Cannula Nasal Cannula Nasal Cannula Nasal Cannula O2 Flow Rate 3.0 3.00 3.0 3.00 01/02/18 01/02/18 23:04 23:43 Pulse 75 69 Resp 13 13 B/P (MAP) 138/59 (85) 147/60 (89) Pulse Ox 100 100 O2 Delivery Nasal Cannula Nasal Cannula O2 Flow Rate 3.00 3.00 Intake and Output 01/03/18 00:00 Intake Total 2400 ml Balance 2400 ml Progress Note #1: Time: 22:30 Progress Note Give her some more aspirin for her chest pain and use some fentanyl and a slow small dose. Jam start putting fluids and her to try and bring up her blood pressure. Concerned about respiratory issues we'll give her a breathing treatment as well. Cardiac versus chest wall versus pulmonary. We'll going to put a cannula and her poor fluid give more fluids as well as go straight to a CT angiogram thinking about pulmonary embolism. Progress Note #2: Time: 23:13 Progress Note We had a long discussion about her goals of care and about doing the CT angiogram. The patient does not want to be on blood thinners so a CT angiogram is not going to give us useful actionable information. We will get her blood pressure under control as well as her pain under control with 75 g of fentanyl. She describes being on long-acting morphine and oxycodone with her last dose this evening. She also says she's been having nausea and vomiting for the past 2 weeks she did not offer up in the initial history. She has not had a bowel movement in about a week. She says she does not eat a lot. I'm concerned about opioid-induced constipation as well. Without any productive cough white count or fever the dubious infiltrate that may be seen on her chest x-ray is dubious. Progress Note #3: Time: 23:53 Progress Note Discussed her laboratory results and the increased alkaline phosphatase. We discussed the possibility of a blockage of the ducts draining her pancreas and gallbladder and liver. Her pain is now completely gone and we have not given her any further pain medicine. She would prefer not to do any CT scan of the abdomen. We did discuss the possibility of opioid-induced constipation. Nursing will call the hospice nurse and have them talk to the oncologist and primary care doctor about the possible use of methylnaltrexone. Patient has agreed to receiving some IV boluses of potassium and magnesium that were likely depleted by her nausea and vomiting secondary to her cancer/ potential OIC. After that if the patient still feeling better we'll let her go home and follow up this week with her primary care physician and the oncologist. ECG Initial ECG Impression Date: Jan 02, 2018 Initial ECG Impression Time: 22:20 Initial ECG Rate: 687 Initial ECG Rhythm: Normal Sinus Initial ECG Intervals: Normal Initial ECG Impression: Normal, Nonspecific Changes Diagnostic Imaging Diagonstic Imaging: Xray Plain Films/CT/US/NM/MRI: chest (1v) Comments Stable right lower lung granulomatous changes seen in previous x-rays. Increased opacity over the left lower lobe consistent with possible infiltrate. No widened mediastinum, midline deviation or pneumothorax. Reviewed: Reviewed by Me Departure Impression Impression: Primary Impression: Abdominal pain Qualified Codes: R10.13 - Epigastric pain Additional Impressions: Pancreatic cancer Qualified Codes: C25.9 - Malignant neoplasm of pancreas, unspecified Hospice care patient Chest pain Qualified Codes: R07.9 - Chest pain, unspecified Disposition: 01 HOME, SELF-CARE Condition: Improved Departure-Patient Inst. Decision time for Depature: 00:44 Referrals: DENY MONTAGUE MD (PCP/Family) Primary Care Physician Patient Instructions: Chest Pain That Is Not Caused by the Heart (DC) Add. Discharge Instructions: Please follow-up this week with your primary care physician and/or oncologist to discuss further workup of your pain if you want. Use your pain medicines as prescribed and if these are inadequate discussed with the hospice nurse getting them changed. Discuss opioid-induced constipation and the possible use of methylnaltrexone with your oncologist to help you have a bowel movement. You may increase her MiraLAX by up to 4 times a day. All discharge instructions reviewed with patient and/or family. Voiced understanding. Copy Copies To 1: DENY MONTAGUE MD Copies To 2: XIN PATE TITUS J Jan 02, 2018 22:24
--- OUTSIDE RECORDS SUMMARY | 2018-01-02 22:24 | XMS REPORT | Continuity of Care Document ---
Author Author [facility] Organization [facility] Address Unknown Phone Unavailable Allergies Active Description Code Type Severity Reaction Onset Reported/Identified Relationship to Patient Clinical Status Yes codeine [id number] Drug Allergy Mild NAUSEA 07/30/2008 Yes morphine [id number] Drug Allergy Mild NAUSEA 07/30/2008 Yes meperidine [id number] Drug Allergy Mild N/V 01/17/2010 Medications There is no data. 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 10/14/1614 JOSE WESTON MD, Ot D64.9 ANEMIA, UNSPECIFIED 10/14/1614 JOSE WESTON MD Ot I10 ESSENTIAL (PRIMARY) HYPERTENSION 10/14/1614 JOSE WESTON MD, Ot I25.10 ATHSCL HEART DISEASE OF [place] CORONARY 10/14/1614 JOSE WESTON MD Ot K21.9 [...] 285.9 ANEMIA NOS 11/28/2011 Ot 440.20 ATHEROSCLEROSIS [place]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 11/28/2011 Ot 440.4 CHRONIC TOTAL [...] 10/04/2014 INGRID COOPER MD Ot 440.21 ATHEROSCL [place] ARTER EXTREM W INTERMIT 10/04/2014 INGRID COOPER MD Ot 530.81 ESOPHAGEAL REFLUX 10/04/2014 INGRID COOPER MD Ot V12.55 PERSONAL HISTORY OF PULMONARY EMBOLISM 10/04/2014 INGRID COOPER MD Ot V15.82 HISTORY OF TOBACCO USE 10/04/2014 INRGID COOPER MD Ot V45.89 POSTSURGICAL STATES NEC [...] LEX PANCREAS NOS 12/25/2014 YANETH LAZO, JENNIFER Hernanedz Ot 577.9 12/25/2014 XIN PATE Ot 157.9 [...] N Ot 157.9 03/19/2015 FARRIS HILAH S [employer] DIRECTOR Ot 157.0 03/19/2015 FARRIS HILAH [employer] MUS[employer] DIRECTOR Ot 196.9 03/19/2015 FARRIS, HILAH S [employer] MUSIC DIRECTOR Ot 285.9 03/19/2015 FARRIS HILAH S [employer] MUSIC DIRECTOR Ot V58.69 05/08/2015 FARRIS HILAH S [employer] MUSIC DIRECTOR Ot 157.0 05/08/2015 FARRIS, HILAH S [employer] MUSIC DIRECTOR Ot 196.9 05/08/2015 FARRIS, HILAH S [employer] MUSIC DIRECTOR Ot 285.9 05/08/2015 FARRIS, HILAH S [employer] MUSIC DIRECTOR Ot V58.69 05/10/2015 FARRIS, HILAH S [employer] MUSIC DIRECTOR Ot 157.0 05/10/2015 FARRIS, HILAH S [employer] MUSIC DIRECTOR Ot 196.9 05/10/2015 FARRIS, HILAH S [employer] MUSIC DIRECTOR Ot 285.9 05/10/2015 FARRIS HILAH S [employer] MUSIC DIRECTOR Ot V58.69 05/22/2015 HERLINDA, BOBAN N Ot 157.0 05/22/2015 HERLINDA, BOBAN N Ot 196.9 05/22/2015 HERLINDA, BOBAN N Ot 285.9 05/22/2015 HERLINDA, BOBAN N Ot V58.11 05/22/2015 HERLINDA, BOBAN N Ot V58.69 05/22/2015 FARRIS, HILAH S [employer] MUSIC DIRECTOR Ot 157.9 05/23/2015 HERLINDA, BOBAN N Ot 157.0 05/23/2015 HERLINDA, BOBAN N Ot 196.9 05/23/2015 HERLINDA, BOBAN N Ot 285.9 05/23/2015 HERLINDA, BOBAN N Ot V58.11 05/23/2015 HERLINDA, BOBAN N Ot V58.69 05/23/2015 MORENITA FARRIS [employer] DIRECTOR Ot 157.9 06/16/2015 HERLINDA, BOBAN N Ot [...] BOBAN N Ot V58.69 07/03/2015 MORENITA FARRIS [employer] MUSIC DIRECTOR Ot 157.0 07/03/2015 MORENITA FARRIS [employer] MUSIC DIRECTOR Ot 196.9 07/03/2015 MORENITA FARRIS [employer] MUSIC DIRECTOR Ot 285.9 07/03/2015 MORENITA FARRIS [employer] MUSIC DIRECTOR Ot V58.69 07/03/2015 FARRIS, MORENITA S [employer] MUSIC DIRECTOR Ot 157.0 07/03/2015 FARRIS, MORENITA S [employer] MUSIC DIRECTOR Ot 196.9 07/03/2015 FARRIS, HILAH S [employer] MUSIC DIRECTOR Ot 285.9 07/03/2015 FARRIS, MORENITA S [employer] MUSIC DIRECTOR Ot V58.69 07/08/2015 MESSI LAZO, ROBERT Ot 157.0 07/08/2015 MESSI LAZO, ROBERT Ot 196.9 07/08/2015 MESSI LAZO, ROBERT Ot 285.9 07/08/2015 MESSI LAZO, ROBERT Ot V58.69 07/16/2015 HERLINDA, BOBAN N Ot 157.0 07/16/2015 HERLINDA, BOBAN N Ot 196.9 07/16/2015 HERLINDA, BOBAN N Ot 285.9 07/16/2015 HERLINDA, BOBAN N Ot V58.11 07/16/2015 HERLINDA, BOBAN N Ot V58.69 07/16/2015 FARRIS, MORENITA S [employer] MUSIC DIRECTOR Ot 157.0 07/16/2015 FARRIS, MORENITA S [employer] MUSIC DIRECTOR Ot 196.9 07/16/2015 FARRIS, MORENITA S [employer] MUSIC DIRECTOR Ot 285.9 07/16/2015 FARRIS, MORENITA S [employer] MUSIC DIRECTOR Ot V58.69 07/25/2015 FARRIS, MORENITA S [employer] MUSIC DIRECTOR Ot 157.0 07/25/2015 FARRIS, HILAH S [employer] MUSIC DIRECTOR Ot 196.9 07/25/2015 FARRIS, GERAAH S [employer] MUSIC DIRECTOR Ot 285.9 07/25/2015 FARRIS, MORENITA S [employer] MUSIC DIRECTOR Ot V58.69 08/06/2015 HERLINDA, BOBAN N Ot 157.0 08/06/2015 HERLINDA, BOBAN N Ot 196.9 08/06/2015 HERLINDA, BOBAN N Ot 285.9 08/06/2015 HERLINDA, BOBAN N Ot V58.11 08/06/2015 HERLINDA, BOBAN N Ot V58.69 08/06/2015 FARRIS, GERAAH S [employer] MUSIC DIRECTOR Ot 157.0 08/06/2015 FARRIS, HILAH S [employer] MUSIC DIRECTOR Ot 196.9 08/06/2015 FARRIS, HILAH S [employer] MUSIC DIRECTOR Ot 285.9 08/06/2015 FARRIS, HILAH S [employer] MUSIC DIRECTOR Ot V58.69 08/14/2015 HERLINDA, BOBAN N Ot 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 PANCREAS HEAD 08/14/2015 HERLINDA, XIN N Ot 196.9 MAL LEX LYMPH NODE NOS 08/14/2015 HERLINDAXIN N Ot 285.9 ANEMIA NOS 08/14/2015 HERLINDA XIN N Ot V58.11 ENCOUNTER FOR ANTINEOPLASTIC CHEMOTHERAP 08/14/2015 XIN PATE N Ot V58.69 OT MED,LT,CURRENT USE 08/14/2015 MORENITA FARRIS S [employer] MUSIC DIRECTOR Ot 157.0 08/14/2015 FARRISMORENITA Mckeon S [employer]IGH SCHO[employer] MUSIC DIRECTOR Ot 196.9 08/14/2015 FARRISMORENITA Mckeon S [employer] SCHO[employer] MUSIC DIRECTOR Ot 285.9 08/14/2015 MORENITA FARRIS S [employer] MUSIC DIRECTOR Ot V58.69 08/19/2015 XIN PATE N Ot 157.0 08/19/2015 HERLINDAXIN N Ot 196.9 08/19/2015 HERLINDAXIN N Ot 285.9 08/19/2015 HERLINDAXIN N Ot V58.11 08/19/2015 HERLINDAXIN BRAUN N Ot V58.69 08/21/2015 MORENITA FARRIS S [employer] MUSIC DIRECTOR Ot 157.9 09/02/2015 MORENITA FARRIS S [employer] MUSIC DIRECTOR Ot 157.9 09/10/2015 HERLINDAXIN BRAUN N Ot 157.0 09/10/2015 HERLINDAXIN BRAUN N Ot 196.9 09/10/2015 HERLINDAXIN N Ot 285.9 09/10/2015 HERLINDAMARILUAN N Ot V58.11 09/10/2015 HERLINDAMARILUAN N Ot V58.69 09/11/2015 MORENITA FARRIS S [employer] MUSIC DIRECTOR Ot C25.0 09/11/2015 MORENITA FARRIS S [employer] MUSIC DIRECTOR Ot G56.91 09/11/2015 MORENITA FARRIS S [employer] MUSIC DIRECTOR Ot Z79.899 09/17/2015 FARRISMORENITA S [employer] SCHO[employer] MUSIC DIRECTOR Ot C25.0 09/17/2015 MORENITA FARRIS S [employer] MUSIC DIRECTOR Ot G56.91 09/17/2015 MORENITA FARRIS S [employer] MUSIC DIRECTOR Ot Z79.899 10/01/2015 HERLINDAXIN BRAUN N Ot 157.0 10/01/2015 HERLINDA, BOBAN N Ot 196.9 10/01/2015 XIN PATE N Ot 285.9 10/01/2015 HERLINDAXIN BRAUN N Ot V58.11 10/01/2015 HERLINDAXIN BRAUN N Ot V58.69 10/02/2015 MORENITA FARRIS S [employer] MUSIC DIRECTOR Ot C25.0 10/02/2015 KALEIGH MORENITA S [employer] S[employer] MUSIC DIRECTOR Ot Z79.899 10/15/2015 FARRIS GERAAH S [employer] S[employer] MUSIC DIRECTOR Ot C25.0 10/15/2015 FARRIS HILAH S [employer] MUSIC DIRECTOR Ot Z79.899 10/23/2015 FARRIS HILAH S [employer] MUSIC DIRECTOR Ot C25.0 10/23/2015 FARRIS HILAH S [employer] MUSIC DIRECTOR Ot Z79.899 10/31/2015 FARRIS MORENITA S [employer] S[employer] MUSIC DIRECTOR Ot C25.0 10/31/2015 KALEIGH MORENITA S [employer] S[employer] MUSIC DIRECTOR Ot Z79.899 11/02/2015 XIN PATE N Ot 157.0 11/02/2015 HERLINDAXIN BRAUN N Ot 196.9 11/02/2015 HRELINDAXIN BRAUN N Ot 285.9 11/02/2015 HERLINDAXIN BRAUN [...] (CURRENT) DRUG THERAPY 12/05/2015 MORENITA FARRIS S [employer] MUSIC DIRECTOR Ot C25.0 12/05/2015 MORENITA FARRIS S [employer] MUSIC DIRECTOR Ot C77.9 12/05/2015 MORENITA FARRIS S [employer] MUSIC DIRECTOR Ot D70.1 12/05/2015 KALEIGHMORENITA [employer] MUSIC DIRECTOR Ot T45.1X5A 12/05/2015 FARRISMORENITA Mckeon [employer] MUSIC DIRECTOR Ot Z79.899 12/12/2015 FARRISMORENITA Mckeon [employer] MUSIC DIRECTOR Ot C25.0 12/12/2015 KALEIGH MORENITA Mckeon [employer] MUSIC DIRECTOR Ot C77.9 12/12/2015 KALEIGH MORENITA Mckeon [employer] MUSIC DIRECTOR Ot D70.1 12/12/2015 KALEIGHMORENITA [employer] SCHOOL MUSIC DIRECTOR Ot T45.1X5A 12/12/2015 KALEIGHMORENITA [employer] MUSIC DIRECTOR Ot Z79.899 12/13/2015 ZAYRA ELIZONDO MD Ot [...] MD Ot R20.2 PARESTHESIA OF SKIN 12/15/2015 ZYARA ELIZONDO MD Ot R51 HEADACHE 12/15/2015 ZAYRA ELIZONDO MD Ot Z79.899 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 ROOM INSPECTOR (CURRENT) DRUG THERAPY 12/17/2015 KALEIGHMORENITA [employer]IC DIRECTOR Ot C25.0 12/26/2015 KALEIGH MORENITA Mckeon [employer] MUSIC DIRECTOR Ot C25.0 12/26/2015 KALEIGH MORENITA Mckeon [employer] MUSIC DIRECTOR Ot C25.0 12/26/2015 KALEIGH MORENITA Mckeon [employer] MUSIC DIRECTOR Ot C77.9 12/26/2015 KALEIGH MORENITA Mckeon [employer] MUSIC DIRECTOR Ot I10 12/26/2015 KALEIGH MORENITA Mckeon [employer] MUSIC DIRECTOR Ot Z79.899 01/02/2016 KALEIGH MORENITA Mckeon [employer] MUSIC DIRECTOR Ot C25.0 01/02/2016 KALEIGH MORENITA Mckeon [employer] MUSIC DIRECTOR Ot C77.9 01/02/2016 KALEIGH HILAH S [employer] MUSIC DIRECTOR Ot I10 01/02/2016 MORENITA FARRIS S [employer] MUSIC DIRECTOR Ot Z79.899 01/09/2016 XIN PATE N Ot C25.0 01/09/2016 XIN PATE N Ot C77.9 01/09/2016 XIN PATE N Ot D64.9 01/09/2016 XIN PATE N Ot Z51.11 01/09/2016 XIN PATE N Ot Z79.899 01/10/2016 YANETH LAZO, JENNIFER Hernandez Ot R31.9 01/16/2016 JENNIFER WOLFE MD Ot R31.9 01/29/2016 FARRISMORENITA Mckeon S [employer]IGH SCHOOL MUSIC DIRECTOR Ot C25.0 01/29/2016 KALEIGH MORENITA S [employer] MUSIC DIRECTOR Ot C77.9 01/29/2016 FARRISMORENITA Mckeon S [employer]IGH SCHOOL MUSIC DIRECTOR Ot I10 01/29/2016 KALEIGHMORENITA S HIGH SCHOOL MUSIC DIRECTOR Ot R74.8 01/29/2016 KALEIGH MORENITA S [employer] MUSIC DIRECTOR Ot Z79.899 01/29/2016 KALEIGHMORENITA S HIGH SCHOOL MUSIC DIRECTOR Ot C25.0 02/03/2016 FARRISMORENITA Mckeon S HIGH SCHOOL MUSIC DIRECTOR Ot C25.0 02/06/2016 DONIREENAANCELMO L [employer]IGH SCHOOL MUSIC DIRECTOR Ot I10 02/06/2016 ANCELMO MARION [employer] MUSIC DIRECTOR Ot I25.10 02/06/2016 ANCELMO MARION L [employer] MUSIC DIRECTOR Ot I65.23 02/06/2016 ANCELMO MARION L [employer] MUSIC DIRECTOR Ot I70.213 02/06/2016 ANCELMO MARION [employer] MUSIC DIRECTOR Ot R00.2 02/11/2016 XIN PATE N Ot C25.0 02/11/2016 XIN PATE N Ot C77.9 02/11/2016 HERLINDAXIN BRAUN N Ot D64.9 02/11/2016 XIN PATE N Ot Z79.899 02/11/2016 ANCELMO MARION L [employer]IC DIRECTOR Ot I10 02/11/2016 ANCELMO MARION L [employer] MUSIC DIRECTOR Ot I25.10 02/11/2016 ANCELMO MARION L [employer] MUSIC DIRECTOR Ot I65.23 02/11/2016 ANCELMO MARION L [employer] MUSIC DIRECTOR Ot I70.213 02/11/2016 ANCELMO MARION L [employer] MUSIC DIRECTOR Ot R00.2 02/12/2016 LOREANCELMO CONROY L HIGH SCHOOL MUSIC DIRECTOR Ot I10 02/12/2016 BAIANCELMO CONROY L [employer] MUSIC DIRECTOR Ot I25.10 02/12/2016 BAIANCELMO CONROY L [employer] MUSIC DIRECTOR Ot I65.23 02/12/2016 BAIANCELMO CONROY L [employer] MUSIC DIRECTOR Ot I70.213 02/12/2016 BAIANCELMO CONROY L [employer] MUSIC DIRECTOR Ot R00.2 02/17/2016 XIN PATE N Ot C25.0 MALIGNANT NEOPLASM OF HEAD OF PANCREAS 02/17/2016 HERLINDAXIN N Ot 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 02/17/2016 HERLINDA MARILUANGELICA N Ot D64.9 ANEMIA, UNSPECIFIED 02/17/2016 HERLINDA XIN N Ot Z79.899 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 ROOM INSPECTOR (CURRENT) DRUG THERAPY 02/18/2016 HERLINDAXIN N Ot C25.0 02/18/2016 HERLINDAXIN N Ot C77.9 02/18/2016 HERLINDAXIN BRAUN N Ot D64.9 02/18/2016 HERLINDAXIN BRAUN N Ot Z79.899 02/18/2016 MORENITA FARRIS [employer] MUSIC DIRECTOR Ot C25.0 02/18/2016 MORENITA FARRIS S [employer] MUSIC DIRECTOR Ot C77.9 02/18/2016 MORENITA FARRIS S [employer] MUSIC DIRECTOR Ot I10 02/18/2016 MORENITA FARRIS S [employer] MUSIC DIRECTOR Ot R74.8 02/18/2016 MORENITA FARRIS S [employer] MUSIC DIRECTOR Ot Z79.899 02/19/2016 LOREANCELMO CONROY L [employer] MUSIC DIRECTOR Ot I10 02/19/2016 BAIANCELMO CONROY L [employer] MUSIC DIRECTOR Ot I25.10 02/19/2016 BAIANCELMO CONROY L [employer] MUSIC DIRECTOR Ot I65.23 02/19/2016 BAIANCELMO CONROY L [employer] MUSIC DIRECTOR Ot I70.213 02/19/2016 BAIANCELMO CONROY L [employer] MUSIC DIRECTOR Ot R00.2 02/19/2016 XIN PATE N Ot C25.0 02/19/2016 XIN PATE N Ot C77.9 02/19/2016 HERLINDAXIN BRAUN N Ot D64.9 02/19/2016 HERLINDA XIN N Ot Z79.899 02/20/2016 MORENITA FARRIS S [employer] MUSIC DIRECTOR Ot C25.0 02/26/2016 FARRISMORENITA Mckeon [employer]IGH SCHOOL MUSIC DIRECTOR Ot C25.0 02/26/2016 FARRISMORENITA Mckeon [employer] SCHOOL MUSIC DIRECTOR Ot C77.9 02/26/2016 FARRISMORENITA Mckeon S HIGH SCHOOL MUSIC DIRECTOR Ot I10 02/26/2016 FARRISMORENITA Mckeon S [employer]IGH SCHOOL MUSIC DIRECTOR Ot R74.8 02/26/2016 FARRISMORENITA Mckeon S [employer]IGH SCHO[employer] MUSIC DIRECTOR Ot Z79.899 02/26/2016 FARRISMORENITA Mckeon S [employer]IGH SCHOOL MUSIC DIRECTOR Ot C25.0 02/26/2016 FARRISMORENITA Mckeon S HIGH SCHOOL MUSIC DIRECTOR Ot C77.9 02/26/2016 FARRISMORENITA Mckeon S [employer]IGH SCHOOL MUSIC DIRECTOR Ot I10 02/26/2016 FARRISMORENITA Mckeon S [employer]IGH SCHOOL MUSIC DIRECTOR Ot R74.8 02/26/2016 FARRISMORENITA Mckeon S HIGH SCHOOL MUSIC DIRECTOR Ot Z79.899 02/26/2016 FARRISMORENITA Mckeon S [employer]IGH SCHOOL MUSIC DIRECTOR Ot C25.0 03/04/2016 FARRISMORENITA Mckeon S [employer]IGH SCHOOL MUSIC DIRECTOR Ot C25.0 MALIGNANT NEOPLASM OF HEAD OF PANCREAS 03/04/2016 FARRIS MORENITA Mckeon [employer] MUSIC DIRECTOR Ot 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 03/04/2016 FARRISMORENITA Mckeon [employer] MUSIC DIRECTOR Ot I10 ESSENTIAL (PRIMARY) HYPERTENSION 03/04/2016 FARRISMORENITA Mckeon [employer]IGH SCHOOL MUSIC DIRECTOR Ot R74.8 ABNORMAL LEVELS OF OTHER SERUM ENZYMES 03/04/2016 MORENITA FARRIS S [employer] MUSIC DIRECTOR Ot Z79.899 OTHER ALF (CURRENT) DRUG THERAPY 04/02/2016 MORENITA FARRIS [employer] MUSIC DIRECTOR Ot C25.0 MALIGNANT NEOPLASM OF HEAD OF PANCREAS 04/02/2016 FARRISMORENITA Mckeon [employer]CHO[employer] MUSIC DIRECTOR Ot 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 04/02/2016 FARRISMORENITA Mckeon [employer] MUSIC DIRECTOR Ot D64.9 ANEMIA, UNSPECIFIED 04/02/2016 FARRISMORENITA Mckeon S [employer] MUSIC DIRECTOR Ot I10 ESSENTIAL (PRIMARY) HYPERTENSION 04/02/2016 FARRISMORENITA Mckeon S [employer]IGH SCHOOL MUSIC DIRECTOR Ot Z79.899 OTHER ALF (CURRENT) DRUG THERAPY 04/06/2016 XIN PATE N Ot C25.0 MALIGNANT NEOPLASM OF HEAD OF PANCREAS 04/06/2016 XIN PATE Ot 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 04/06/2016 XIN PATE N Ot D64.9 ANEMIA, UNSPECIFIED 04/06/2016 XIN PATE Ot Z51.11 ENCOUNTER FOR ANTINEOPLASTIC CHEMOTHERAP 04/06/2016 XIN PATE Ot Z79.899 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 ROOM INSPECTOR (CURRENT) DRUG THERAPY 04/15/2016 XIN PATE Ot C25.0 MALIGNANT NEOPLASM OF HEAD OF PANCREAS 04/15/2016 XIN PATE Ot 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 04/15/2016 XIN PATE Ot D64.9 ANEMIA, UNSPECIFIED 04/15/2016 XIN PATE Ot Z51.11 ENCOUNTER FOR ANTINEOPLASTIC CHEMOTHERAP 04/15/2016 XIN PATE Ot Z79.899 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 ROOM INSPECTOR (CURRENT) DRUG THERAPY 04/23/2016 MORENITA FARRIS S [employer] MUSIC DIRECTOR Ot C25.0 MALIGNANT NEOPLASM OF HEAD OF PANCREAS 04/23/2016 MORENITA FARRIS [employer] MUSIC DIRECTOR Ot 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 04/23/2016 MORENITA FARRIS S [employer] MUSIC DIRECTOR Ot D64.9 ANEMIA, UNSPECIFIED 04/23/2016 MORENITA FARRIS S [employer] MUSIC DIRECTOR Ot I10 ESSENTIAL (PRIMARY) HYPERTENSION 04/23/2016 MORENITA FARRIS S [employer] MUSIC DIRECTOR Ot Z79.899 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 ROOM INSPECTOR (CURRENT) DRUG THERAPY 04/23/2016 MORENITA FARRIS S [employer] MUSIC DIRECTOR Ot C25.0 MALIGNANT NEOPLASM OF HEAD OF PANCREAS 04/24/2016 MORENITA FARRIS S [employer] MUSIC DIRECTOR Ot C25.0 MALIGNANT NEOPLASM OF HEAD OF PANCREAS 04/24/2016 MORENITA FARRIS [employer] MUSIC DIRECTOR Ot 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 04/24/2016 MORENITA FARRIS S [employer] SCHO[employer] MUSIC DIRECTOR Ot D64.9 ANEMIA, UNSPECIFIED 04/24/2016 MORENITA FARRIS S [employer] MUSIC DIRECTOR Ot I10 ESSENTIAL (PRIMARY) HYPERTENSION 04/24/2016 MORENITA FARRIS S [employer]CHO[employer] MUSIC DIRECTOR Ot Z79.899 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 ROOM INSPECTOR (CURRENT) DRUG THERAPY 05/12/2016 MORENITA FARRIS S [employer] MUSIC DIRECTOR Ot C25.0 MALIGNANT NEOPLASM OF HEAD OF PANCREAS 05/13/2016 MORENITA FARRIS S [employer] MUSIC DIRECTOR Ot C25.0 MALIGNANT NEOPLASM OF HEAD OF PANCREAS 05/13/2016 MORENITA FARRIS S [employer] MUSIC DIRECTOR Ot 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 05/13/2016 MORENITA FARRIS [employer] MUSIC DIRECTOR Ot D64.9 ANEMIA, UNSPECIFIED 05/13/2016 MORENITA FARRIS [employer] MUSIC DIRECTOR Ot I10 ESSENTIAL (PRIMARY) HYPERTENSION 05/13/2016 MORENITA FARRIS [employer] MUSIC DIRECTOR Ot Z79.899 OTHER ALF (CURRENT) DRUG THERAPY 05/18/2016 HERLINDAXIN BRAUN N Ot C25.0 MALIGNANT NEOPLASM OF HEAD OF PANCREAS 05/18/2016 HERLINDAXIN BRAUN N Ot 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 05/18/2016 XIN PATE N Ot D64.9 ANEMIA, UNSPECIFIED 05/18/2016 HERLINDAXIN BRAUN N Ot Z51.11 ENCOUNTER FOR ANTINEOPLASTIC CHEMOTHERAP 05/18/2016 XIN PATE N Ot Z79.899 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 ROOM INSPECTOR (CURRENT) DRUG THERAPY 05/25/2016 XIN PATE N Ot C25.0 MALIGNANT NEOPLASM OF HEAD OF PANCREAS 05/25/2016 XIN PATE N Ot 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 05/25/2016 XIN PATE N Ot D64.9 ANEMIA, UNSPECIFIED 05/25/2016 XIN PATE N Ot Z51.11 ENCOUNTER FOR ANTINEOPLASTIC CHEMOTHERAP 05/25/2016 XIN PATE N Ot Z79.899 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 ROOM INSPECTOR (CURRENT) DRUG THERAPY 05/25/2016 MORENITA FARRIS [employer] MUSIC DIRECTOR Ot C25.0 MALIGNANT NEOPLASM OF HEAD OF [...] 06/26/2016 XIN PATE N Ot Z79.899 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 ROOM INSPECTOR (CURRENT) DRUG THERAPY 07/16/2016 Ot 998.59 07/16/2016 XIN PATE N Ot C25.0 MALIGNANT NEOPLASM OF HEAD OF PANCREAS 07/16/2016 HERLINDAXIN N Ot 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 07/16/2016 XIN PATE N Ot D64.9 ANEMIA, UNSPECIFIED 07/16/2016 HERLINDAXIN N Ot Z79.899 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 ROOM INSPECTOR (CURRENT) DRUG THERAPY 07/23/2016 HERLINDAXIN BRAUN N Ot C25.0 MALIGNANT NEOPLASM OF HEAD OF PANCREAS 07/23/2016 HERLINDAXIN N Ot 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 07/23/2016 HERLINDAXIN N Ot D64.9 ANEMIA, UNSPECIFIED 07/23/2016 HERLINDAXIN N Ot Z79.899 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 ROOM INSPECTOR (CURRENT) DRUG THERAPY 08/21/2016 HERLINDAXIN BRAUN N Ot C25.0 MALIGNANT NEOPLASM OF HEAD OF PANCREAS 08/21/2016 HERLINDAXIN N Ot 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 08/21/2016 HERLINDAXIN N Ot D64.9 ANEMIA, UNSPECIFIED 08/21/2016 HERLINDAXIN N Ot Z79.899 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 ROOM INSPECTOR (CURRENT) DRUG THERAPY 08/28/2016 HERLINDAXIN N Ot [...] SCREEN MAMMO-MALIGN NEOPLASM OF [place] 09/24/2016 YANETH LAOZ, JENNIFER Hernandez Ot 272.4 HYPERLIPIDEMIA NEC/NOS 09/24/2016 YANETH LAZO, JENNIFER Hernandez Ot 414.01 CORONARY ATHEROSCLEROSIS OF [place] CORON 09/24/2016 YANETH LAZO, JENNIFER Hernandez Ot [...] V72.84 EXAM PRE-OPERATIVE NOS 09/24/2016 MORENITA FARRIS [employer] MUS[employer] DIRECTOR Ot 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 PANCREAS HEAD 09/24/2016 MORENITA FARRIS [employer] MUSIC DIRECTOR Ot 196.9 MAL LEX LYMPH NODE NOS [...] Ot 780.60 FEVER, UNSPECIFIED 09/24/2016 MORENITA FARRIS [employer] MUSIC DIRECTOR Ot 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 PANCREAS HEAD 09/24/2016 MORENITA FARRIS [employer] MUSIC DIRECTOR Ot 196.9 MAL LEX LYMPH NODE NOS 09/24/2016 MORENITA FARRIS S [employer] SCHOOL MUSIC DIRECTOR Ot 285.9 ANEMIA NOS 09/24/2016 MORENITA FARRIS S [employer] MUSIC DIRECTOR Ot V58.69 OTH MED,LT,CURRENT USE 09/24/2016 MORENITA FARRIS S [employer] MUSIC DIRECTOR Ot 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 PANCREAS HEAD 09/24/2016 MORENITA FARRIS S [employer] MUSIC DIRECTOR Ot 196.9 MAL LEX LYMPH NODE NOS 09/24/2016 FARRISMORENITA Mckeon S HIGH SCHOOL MUSIC DIRECTOR Ot 285.9 ANEMIA NOS 09/24/2016 MORENITA FARRIS S [employer] MUSIC DIRECTOR Ot V58.69 OTH MED,LT,CURRENT USE 09/24/2016 MORENITA FARRIS S [employer] MUSIC DIRECTOR Ot 157.9 MALIG LEX PANCREAS NOS 09/24/2016 MESSI LAZO, ROBERT Ot 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 PANCREAS HEAD 09/24/2016 MESSI LAZO, ROBERT Ot 196.9 MAL LEX LYMPH NODE NOS 09/24/2016 MESSI LAZO, ROBERT Ot 285.9 ANEMIA NOS 09/24/2016 MESSI LAZO, ROBERT Ot V58.69 OTH MED,LT,CURRENT USE 09/24/2016 MORENITA FARRIS S [employer] MUSIC [employer] Ot 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 PANCREAS HEAD 09/24/2016 MORENITA FARRIS S [employer] DIRECTOR Ot 196.9 MAL LEX LYMPH NODE NOS 09/24/2016 MORENITA FARRIS S [employer] DIRECTOR Ot 285.9 ANEMIA NOS 09/24/2016 MORENITA FARRIS S [employer] DIRECTOR Ot V58.69 OTH MED,LT,CURRENT USE 09/24/2016 MORENITA FARRIS [employer]IC DIRECTOR Ot 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 PANCREAS HEAD 09/24/2016 MORENITA FARRIS S [employer] DIRECTOR Ot 196.9 MAL LEX LYMPH NODE NOS 09/24/2016 MORENITA FARRIS S [employer] MUS[employer] DIRECTOR Ot 285.9 ANEMIA NOS 09/24/2016 MORENITA FARRIS S [employer] MUSIC DIRECTOR Ot V58.69 OTH MED,LT,CURRENT USE 09/24/2016 MORENITA FARRIS S [employer] DIRECTOR Ot 157.9 MALIG LEX PANCREAS NOS 09/24/2016 MORENITA FARRIS S [employer] DIRECTOR Ot C25.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 09/24/2016 MORENITA FARRIS [employer] DIRECTOR Ot 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 09/24/2016 MORENITA FARRIS S [employer] DIRECTOR Ot Z79.899 OTHER ALF (CURRENT) DRUG THERAPY 09/24/2016 MORENITA FARRIS [employer] DIRECTOR Ot C25.0 MALIGNANT NEOPLASM OF HEAD OF PANCREAS 09/24/2016 FARRISMORENITA Mckeon [employer] MUSIC DIRECTOR Ot Z79.899 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 ROOM INSPECTOR (CURRENT) DRUG THERAPY 09/24/2016 MORENITA FARRIS [employer] DIRECTOR Ot C25.0 MALIGNANT NEOPLASM OF HEAD OF PANCREAS 09/24/2016 FARRISMORENITA Mckeon [employer] MUSIC DIRECTOR Ot Z79.899 OTHER ALF (CURRENT) DRUG THERAPY 09/24/2016 FARRISMORENITA Mckeon [employer] MUSIC DIRECTOR Ot C25.0 MALIGNANT NEOPLASM OF HEAD OF PANCREAS 09/24/2016 FARRISMORENITA Mckeon [employer] MUSIC DIRECTOR Ot C77.9 SECONDARY AND UNSP MALIGNANT NEOPLASM OF 09/24/2016 FARRISMORENITA Mckeon [employer] MUSIC DIRECTOR Ot 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 09/24/2016 FARRISMORENITA Mckeon [employer] MUSIC DIRECTOR Ot T45.1X5A ADVERSE EFFECT OF ANTINEOPLASTIC AND IMM 09/24/2016 FARRISMORENITA Mckeon [employer] MUSIC DIRECTOR Ot Z79.899 OTHER ALF (CURRENT) DRUG THERAPY 09/24/2016 FARRISMORENITA Mckeon [employer] MUSIC DIRECTOR Ot C25.0 MALIGNANT NEOPLASM OF HEAD OF PANCREAS 09/24/2016 FARRISMORENITA Mckeon [employer] MUSIC DIRECTOR Ot C25.0 MALIGNANT NEOPLASM OF HEAD OF PANCREAS 09/24/2016 FARRISMORENITA Mckeon [employer] MUSIC DIRECTOR Ot C77.9 SECONDARY AND UNSP MALIGNANT NEOPLASM OF 09/24/2016 FARRISMORENITA [employer] MUSIC DIRECTOR Ot I10 ESSENTIAL (PRIMARY) HYPERTENSION 09/24/2016 KALEIGH MORENITA Mckeon [employer] MUSIC DIRECTOR Ot Z79.899 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 ROOM INSPECTOR (CURRENT) DRUG THERAPY 09/24/2016 YANETH LAZO, JENNIFER Hernandez Ot R31.9 HEMATURIA, UNSPECIFIED 09/24/2016 ANCELMO MARION [employer] DIRECTOR Ot I10 ESSENTIAL (PRIMARY) HYPERTENSION 09/24/2016 ANCELMO MARION [employer] MUSIC DIRECTOR Ot I25.10 ATHSCL HEART DISEASE OF [place] CORONARY 09/24/2016 ANCELMO MARION [employer]IC DIRECTOR Ot 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 09/24/2016 ANCELMO MARION [employer]IC DIRECTOR Ot I70.213 ATHSCL [place] ARTERIES OF EXTRM W INTRMT 09/24/2016 ANCELMO MARION [employer] MUSIC DIRECTOR Ot R00.2 PALPITATIONS 09/24/2016 LOREANCELMO CONROY [employer]IC DIRECTOR Ot I10 ESSENTIAL (PRIMARY) HYPERTENSION 09/24/2016 ANCELMO MARION [employer] MUSIC DIRECTOR Ot I25.10 ATHSCL HEART DISEASE OF [place] CORONARY 09/24/2016 ANCELMO MARION [employer] MUSIC DIRECTOR Ot 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 09/24/2016 ANCELMO MARION [employer] MUSIC DIRECTOR Ot I70.213 ATHSCL [place] ARTERIES OF EXTRM W INTRMT 09/24/2016 ANCELMO MARION [employer] MUSIC DIRECTOR Ot R00.2 PALPITATIONS 09/24/2016 MORENITA FARRIS [employer] MUSIC DIRECTOR Ot C25.0 MALIGNANT NEOPLASM OF HEAD OF PANCREAS 09/24/2016 MORENITA FARRIS [employer] MUSIC DIRECTOR Ot 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 09/24/2016 MORENITA FARRIS S [employer] MUSIC DIRECTOR Ot I10 ESSENTIAL (PRIMARY) HYPERTENSION 09/24/2016 MORENITA FARRIS [employer] MUSIC DIRECTOR Ot R74.8 ABNORMAL LEVELS OF OTHER SERUM ENZYMES 09/24/2016 MORENITA FARRIS [employer] MUSIC DIRECTOR Ot Z79.899 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 ROOM INSPECTOR (CURRENT) DRUG THERAPY 09/24/2016 MORENITA FARRIS [employer] DIRECTOR Ot C25.0 MALIGNANT NEOPLASM OF HEAD OF PANCREAS 09/24/2016 MORENITA [employer] DIRECTOR Ot C25.0 MALIGNANT NEOPLASM OF HEAD OF PANCREAS 09/24/2016 MORENITA [employer]IS [employer] DIRECTOR Ot 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 09/24/2016 MORENITA [employer]IS [employer] DIRECTOR Ot I10 ESSENTIAL (PRIMARY) HYPERTENSION 09/24/2016 MORENITA F[employer]IS [employer] MUSIC DIRECTOR Ot R74.8 ABNORMAL LEVELS OF OTHER SERUM ENZYMES 09/24/2016 MORENITA F[employer]IS [employer] MUSIC DIRECTOR Ot Z79.899 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 ROOM INSPECTOR (CURRENT) DRUG THERAPY 09/24/2016 MORENITA [employer]IS [employer] MUSIC DIRECTOR Ot C25.0 MALIGNANT NEOPLASM OF HEAD OF PANCREAS 09/24/2016 MORENITA [employer]IS [employer] MUSIC DIRECTOR Ot 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 09/24/2016 MORENITA [employer]IS [employer] DIRECTOR Ot D64.9 ANEMIA, UNSPECIFIED 09/24/2016 MORENITA [employer]IS [employer] MUSIC DIRECTOR Ot I10 ESSENTIAL (PRIMARY) HYPERTENSION 09/24/2016 MORENIAT F[employer]IS S [employer] MUSIC DIRECTOR Ot Z79.899 OTHER ALF (CURRENT) DRUG THERAPY 09/24/2016 MORENITA [employer]IS [employer] DIRECTOR Ot C25.0 MALIGNANT NEOPLASM OF HEAD OF PANCREAS 09/24/2016 XIN PATE Ot C25.0 MALIGNANT NEOPLASM OF HEAD OF PANCREAS 09/24/2016 XIN PATE Ot 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 09/24/2016 XIN PATE Ot D64.9 ANEMIA, UNSPECIFIED 09/24/2016 HERLINDAXIN BRAUN N Ot Z23 ENCOUNTER FOR IMMUNIZATION 09/24/2016 XIN PATE Ot Z79.899 OTHER ALF (CURRENT) DRUG THERAPY 09/24/2016 MORENITA [employer]IS [employer] DIRECTOR Ot C25.0 MALIGNANT NEOPLASM OF HEAD OF [...] JENNIFER Hernandez Ot 414.01 CORONARY ATHEROSCLEROSIS OF [place] CORON 09/29/2016 YANETH LAZO, JENNIFER Hernandez Ot [...] EXAM PRE-OPERATIVE NOS 09/29/2016 MORENITA [employer] DIRECTOR Ot 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 PANCREAS HEAD 09/29/2016 MORENITA [employer]IS [employer] MUSIC DIRECTOR Ot 196.9 MAL LEX LYMPH NODE NOS 09/29/2016 MORENITA [employer]IS [employer] MUSIC DIRECTOR Ot V58.69 OTH MED,LT,CURRENT USE 09/29/2016 Ot 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 PANCREAS HEAD 09/29/2016 Ot 196.9 MAL LEX LYMPH NODE NOS 09/29/2016 Ot 285.9 ANEMIA NOS 09/29/2016 Ot 288.60 LEUKOCYTOSIS , UNSPECIFIED 09/29/2016 Ot 780.60 FEVER, UNSPECIFIED 09/29/2016 Ot 782.4 JAUNDICE NOS 09/29/2016 Ot V58.69 OTH MED,LT, CURRENT USE 09/29/2016 Ot 288.60 LEUKOCYTOSIS , UNSPECIFIED 09/29/2016 Ot 780.60 FEVER, UNSPECIFIED 09/29/2016 MORENITA [employer] DIRECTOR Ot 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 PANCREAS HEAD 09/29/2016 MORENITA [employer]IS [employer] MUSIC DIRECTOR Ot 196.9 MAL LEX LYMPH NODE NOS 09/29/2016 FARRISMORENITA Mckeon S [employer] SCHOOL MUSIC DIRECTOR Ot 285.9 ANEMIA NOS 09/29/2016 MORENITA [employer]IS [employer] MUSIC DIRECTOR Ot V58.69 OTH MED,LT,CURRENT USE 09/29/2016 MORENITA [employer]IS [employer] MUSIC DIRECTOR Ot 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 PANCREAS HEAD 09/29/2016 MORENITA [employer]IS [employer] MUSIC DIRECTOR Ot 196.9 MAL LEX LYMPH NODE NOS 09/29/2016 GERA FARRISAH S [employer] S[employer]OL MUSIC DIRECTOR Ot 285.9 ANEMIA NOS 09/29/2016 GERA FARRISAH S [employer] MUSIC DIRECTOR Ot V58.69 OTH MED,LT,CURRENT USE 09/29/2016 GERA FARRISAH S [employer] MUSIC DIRECTOR Ot 157.9 MALIG LEX PANCREAS NOS 09/29/2016 MESSI LAZO, ROBERT Ot 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 PANCREAS HEAD 09/29/2016 MESSI LAZO, ROBERT Ot 196.9 MAL LEX LYMPH NODE NOS 09/29/2016 MESSI LAZO, ROBERT Ot 285.9 ANEMIA NOS 09/29/2016 MESSI LAZO, ROBERT Ot V58.69 OTH MED,LT,CURRENT USE 09/29/2016 MORENITA [employer]IS [employer] DIRECTOR Ot 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 PANCREAS HEAD 09/29/2016 MORENITA [employer]IS [employer] MUSIC DIRECTOR Ot 196.9 MAL LEX LYMPH NODE NOS 09/29/2016 MORENITA F[employer]IS [employer] MUSIC DIRECTOR Ot 285.9 ANEMIA NOS 09/29/2016 MORENITA [employer]IS [employer] MUSIC DIRECTOR Ot V58.69 OTH MED,LT,CURRENT USE 09/29/2016 MORENITA [employer]IS [employer] MUSIC DIRECTOR Ot 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 PANCREAS HEAD 09/29/2016 MORENITA [employer]IS [employer] MUSIC DIRECTOR Ot 196.9 MAL LEX LYMPH NODE NOS 09/29/2016 MORENITA [employer]IS [employer] MUSIC DIRECTOR Ot 285.9 ANEMIA NOS 09/29/2016 MORENITA FARRISP Ot V58.69 OTH MED,LT,CURRENT USE 09/29/2016 MORENITA [employer]IS [employer] MUSIC DIRECTOR Ot 157.9 MALIG LEX PANCREAS NOS 09/29/2016 MORENITA [employer]IS [employer] DIRECTOR Ot C25.0 MALIGNANT NEOPLASM OF HEAD OF PANCREAS 09/29/2016 MORENITA [employer]IS [employer] DIRECTOR Ot 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 09/29/2016 MORENITA [employer]IS [employer] MUS[employer] DIRECTOR Ot Z79.899 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 ROOM INSPECTOR (CURRENT) DRUG THERAPY 09/29/2016 MORENITA [employer]IS [employer] DIRECTOR Ot C25.0 MALIGNANT NEOPLASM OF HEAD OF PANCREAS 09/29/2016 MORENITA [employer]IS [employer] MUSIC DIRECTOR Ot Z79.899 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 ROOM INSPECTOR (CURRENT) DRUG THERAPY 09/29/2016 MORENITA [employer]IS [employer] DIRECTOR Ot C25.0 MALIGNANT NEOPLASM OF HEAD OF PANCREAS 09/29/2016 MORENITA [employer]IS [employer] MUS[employer] DIRECTOR Ot Z79.899 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 ROOM INSPECTOR (CURRENT) DRUG THERAPY 09/29/2016 MORENITA [employer]IS [employer] MUSIC DIRECTOR Ot C25.0 MALIGNANT NEOPLASM OF HEAD OF PANCREAS 09/29/2016 MORENITA FARRISP Ot 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 09/29/2016 MORENITA FARRISP Ot 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 09/29/2016 MORENITA [employer]IS [employer] DIRECTOR Ot T45.1X5A ADVERSE EFFECT OF ANTINEOPLASTIC AND IMM 09/29/2016 FARRISMORENITA [employer] MUSIC DIRECTOR Ot Z79.899 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 ROOM INSPECTOR (CURRENT) DRUG THERAPY 09/29/2016 GERA FARRISLATA Mckeon [employer] MUSIC DIRECTOR Ot C25.0 MALIGNANT NEOPLASM OF HEAD OF PANCREAS 09/29/2016 GERA FARRISLATA Mike [employer] SCHOOL MUSIC DIRECTOR Ot C25.0 MALIGNANT NEOPLASM OF HEAD OF PANCREAS 09/29/2016 MORENITA F[employer]IS [employer] MUSIC DIRECTOR Ot 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 09/29/2016 MORENITA FRARIS [employer] MUSIC DIRECTOR Ot I10 ESSENTIAL (PRIMARY) HYPERTENSION 09/29/2016 GERA FARRISLATA Mckeon [employer] MUSIC DIRECTOR Ot Z79.899 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 ROOM INSPECTOR (CURRENT) DRUG THERAPY 09/29/2016 YANETH LAZO, JENNIFER Hernandez Ot R31.9 HEMATURIA, UNSPECIFIED 09/29/2016 LOREMARYCARMEN ANCELMO L [employer] MUSIC DIRECTOR Ot I10 ESSENTIAL (PRIMARY) HYPERTENSION 09/29/2016 LOREANCELMO CONROY L [employer] MUSIC DIRECTOR Ot I25.10 ATHSCL HEART DISEASE OF [place] CORONARY 09/29/2016 LOREREENA CONROYHER L [employer]IGH SCHOOL MUSIC DIRECTOR Ot 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 09/29/2016 LOREMARYCARMEN ANCELMO L [employer] MUSIC DIRECTOR Ot 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 09/29/2016 BAIANCELMO CONROY L [employer] MUSIC DIRECTOR Ot R00.2 PALPITATIONS 09/29/2016 BAIMARYCARMEN ANCELMO L [employer]OL MUSIC DIRECTOR Ot I10 ESSENTIAL (PRIMARY) HYPERTENSION 09/29/2016 BAIREENA CONROYHER L [employer]IGH SCHOOL MUSIC DIRECTOR Ot I25.10 ATHSCL HEART DISEASE OF [place] CORONARY 09/29/2016 BAIMAREENAANCELMO L HIGH SCHOOL MUSIC DIRECTOR Ot 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 09/29/2016 BAIMAREENAANCELMO L [employer]IGH SCHOOL MUSIC DIRECTOR Ot I70.213 ATHSCL [place] ARTERIES OF EXTRM W INTRMT 09/29/2016 LOREANCELMO CONROY L [employer] MUSIC DIRECTOR Ot R00.2 PALPITATIONS 09/29/2016 MORENITA FARRIS [employer] MUSIC DIRECTOR Ot C25.0 MALIGNANT NEOPLASM OF HEAD OF PANCREAS 09/29/2016 MORENITA [employer]IS [employer] MUSIC DIRECTOR Ot 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 09/29/2016 MORENITA F[employer]IS [employer] MUSIC DIRECTOR Ot I10 ESSENTIAL (PRIMARY) HYPERTENSION 09/29/2016 MORENITA FARRIS [employer] MUSIC DIRECTOR Ot R74.8 ABNORMAL LEVELS OF OTHER SERUM ENZYMES 09/29/2016 MORENITA [employer]IS [employer] MUSIC DIRECTOR Ot Z79.899 OTHER ALF (CURRENT) DRUG THERAPY 09/29/2016 MORENITA [employer]IS [employer] MUSIC DIRECTOR Ot C25.0 MALIGNANT NEOPLASM OF HEAD OF PANCREAS 09/29/2016 MORENITA FARRIS [employer] MUSIC DIRECTOR Ot C25.0 MALIGNANT NEOPLASM OF HEAD OF PANCREAS 09/29/2016 MORENITA F[employer]IS [employer] MUSIC DIRECTOR Ot 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 09/29/2016 MORENITA FARRIS [employer] MUSIC DIRECTOR Ot I10 ESSENTIAL (PRIMARY) HYPERTENSION 09/29/2016 MORENITA FARRISP Ot R74.8 ABNORMAL LEVELS OF OTHER SERUM ENZYMES 09/29/2016 MORENITA FARRISP Ot Z79.899 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 ROOM INSPECTOR (CURRENT) DRUG THERAPY 09/29/2016 MORENITA F[employer]IS [employer] MUSIC DIRECTOR Ot C25.0 MALIGNANT NEOPLASM OF HEAD OF PANCREAS 09/29/2016 MORENITA FARRIS [employer] MUSIC DIRECTOR Ot 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 09/29/2016 MORENITA FARRIS [employer] MUSIC DIRECTOR Ot D64.9 ANEMIA, UNSPECIFIED 09/29/2016 MORENITA FARRIS [employer] MUSIC DIRECTOR Ot I10 ESSENTIAL (PRIMARY) HYPERTENSION 09/29/2016 MORENITA FARRIS [employer] MUSIC DIRECTOR Ot Z79.899 OTHER ALF (CURRENT) DRUG THERAPY 09/29/2016 MORENITA FARRIS [employer] MUSIC DIRECTOR Ot C25.0 MALIGNANT NEOPLASM OF HEAD OF PANCREAS 09/29/2016 HERLINDAXIN N Ot C25.0 MALIGNANT NEOPLASM OF HEAD OF PANCREAS 09/29/2016 XIN PATE Ot 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 09/29/2016 XIN PATE N Ot D64.9 ANEMIA, UNSPECIFIED 09/29/2016 XIN PATE Ot Z23 ENCOUNTER FOR IMMUNIZATION 09/29/2016 XIN PATE N Ot Z79.899 OTHER ALF (CURRENT) DRUG THERAPY 09/29/2016 FARRISMORENITA Mckeon [employer] MUSIC DIRECTOR Ot C25.0 MALIGNANT NEOPLASM OF HEAD OF PANCREAS 10/14/2016 XIN PATE N Ot C25.0 MALIGNANT NEOPLASM OF HEAD OF PANCREAS 10/14/2016 XIN PATE N Ot 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 10/14/2016 XIN PATE N Ot D64.9 ANEMIA, UNSPECIFIED 10/14/2016 HERLINDAXIN N Ot Z23 ENCOUNTER FOR IMMUNIZATION 10/14/2016 XIN PATE N Ot Z79.899 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 ROOM INSPECTOR (CURRENT) DRUG THERAPY 10/15/2016 FARRISMORENITA Mckeon [employer] MUSIC DIRECTOR Ot C25.0 MALIGNANT NEOPLASM OF HEAD OF PANCREAS 10/22/2016 XIN PATE N Ot C25.0 MALIGNANT NEOPLASM OF HEAD OF PANCREAS 10/22/2016 XIN PATE N Ot 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 10/22/2016 XIN PATE N Ot D64.9 ANEMIA, UNSPECIFIED 10/22/2016 HERLINDAXIN BRAUN N Ot Z23 ENCOUNTER FOR IMMUNIZATION 10/22/2016 XIN PATE N Ot Z79.899 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 ROOM INSPECTOR (CURRENT) DRUG THERAPY 10/22/2016 GERA FARRISLATA Mckeon [employer] MUSIC DIRECTOR Ot C25.0 MALIGNANT NEOPLASM OF HEAD OF [...] 11/25/2016 XIN PATE N Ot Z79.899 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 ROOM INSPECTOR (CURRENT) DRUG THERAPY 11/26/2016 XIN PATE N [...] JENNIFER Hernandez Ot 414.01 CORONARY ATHEROSCLEROSIS OF [place] CORON 12/17/2016 YANETH LAZO, JENNIFER Hernandez Ot [...] EXAM PRE-OPERATIVE NOS 12/17/2016 MORENITA FARRIS S [employer] MUSIC DIRECTOR Ot 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 PANCREAS HEAD 12/17/2016 FARRISMORENITA Mckeon S [employer]IGH SCHOOL MUSIC DIRECTOR Ot 196.9 MAL LEX LYMPH NODE NOS 12/17/2016 FARRISMORENITA Mckeon S [employer] S[employer] MUSIC DIRECTOR Ot V58.69 OTH MED,LT,CURRENT USE 12/17/2016 Ot 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 PANCREAS HEAD 12/17/2016 Ot 196.9 MAL LEX LYMPH NODE NOS 12/17/2016 Ot 285.9 ANEMIA NOS 12/17/2016 Ot 288.60 LEUKOCYTOSIS , UNSPECIFIED 12/17/2016 Ot 780.60 FEVER, UNSPECIFIED 12/17/2016 Ot 782.4 JAUNDICE NOS 12/17/2016 Ot V58.69 OTH MED,LT, CURRENT USE 12/17/2016 Ot 288.60 LEUKOCYTOSIS , UNSPECIFIED 12/17/2016 Ot 780.60 FEVER, UNSPECIFIED 12/17/2016 MORENITA FARRIS S [employer] MUSIC DIRECTOR Ot 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 PANCREAS HEAD 12/17/2016 FARRISMORENITA Mckeon S [employer]IGH SCHOOL MUSIC DIRECTOR Ot 196.9 MAL LEX LYMPH NODE NOS 12/17/2016 FARRISMORENITA Mckeon S HIGH SCHOOL MUSIC DIRECTOR Ot 285.9 ANEMIA NOS 12/17/2016 FARRIS, HILAH S HIGH SCHOOL MUSIC DIRECTOR Ot V58.69 OTH MED,LT,CURRENT USE 12/17/2016 MORENITA FARRIS [employer] MUSIC DIRECTOR Ot 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 PANCREAS HEAD 12/17/2016 MORENITA FARRIS S [employer] SCHOOL MUSIC DIRECTOR Ot 196.9 MAL LEX LYMPH NODE NOS 12/17/2016 MORENITA FARRIS S [employer] S[employer]OL MUSIC DIRECTOR Ot 285.9 ANEMIA NOS 12/17/2016 MORENITA FARRIS [employer] MUSIC DIRECTOR Ot V58.69 OTH MED,LT,CURRENT USE 12/17/2016 MORENITA FARRIS S [employer] MUSIC DIRECTOR Ot 157.9 MALIG LEX PANCREAS NOS 12/17/2016 THOMAS SWENSON MD-KEVAN Ot 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 PANCREAS HEAD 12/17/2016 THOMAS SWENSON MD-KEVAN Ot 196.9 MAL LEX LYMPH NODE NOS 12/17/2016 MESSI LAZO, THOMAS-KEVAN Ot 285.9 ANEMIA NOS 12/17/2016 ROBERT SWENSON MD Ot V58.69 OTH MED,LT,CURRENT USE 12/17/2016 MORENITA FARRIS [employer] MUSIC DIRECTOR Ot 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 PANCREAS HEAD 12/17/2016 MORENITA FARRIS [employer] MUSIC DIRECTOR Ot 196.9 MAL LEX LYMPH NODE NOS 12/17/2016 MORENITA FARRIS S [employer] S[employer]OL MUSIC DIRECTOR Ot 285.9 ANEMIA NOS 12/17/2016 MORENITA FARRIS [employer] MUSIC DIRECTOR Ot V58.69 OTH MED,LT,CURRENT USE 12/17/2016 MORENITA FARRIS [employer] MUSIC DIRECTOR Ot 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 PANCREAS HEAD 12/17/2016 MORENITA FARRIS [employer] MUSIC DIRECTOR Ot 196.9 MAL LEX LYMPH NODE NOS 12/17/2016 MORENITA FARRIS S [employer] S[employer]OL MUSIC DIRECTOR Ot 285.9 ANEMIA NOS 12/17/2016 MORENITA FARRIS [employer] MUSIC DIRECTOR Ot V58.69 OTH MED,LT,CURRENT USE 12/17/2016 MORENITA FARRIS [employer] MUSIC DIRECTOR Ot 157.9 MALIG LEX PANCREAS NOS 12/17/2016 MORENITA FARRIS [employer] MUSIC DIRECTOR Ot C25.0 MALIGNANT NEOPLASM OF HEAD OF PANCREAS 12/17/2016 MORENITA FARRIS [employer] MUSIC DIRECTOR Ot 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 12/17/2016 MORENITA FARRIS [employer] MUSIC DIRECTOR Ot Z79.899 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 ROOM INSPECTOR (CURRENT) DRUG THERAPY 12/17/2016 MORENITA FARRIS [employer] MUSIC DIRECTOR Ot C25.0 MALIGNANT NEOPLASM OF HEAD OF PANCREAS 12/17/2016 MORENITA FARRIS [employer] MUSIC DIRECTOR Ot Z79.899 OTHER ALF (CURRENT) DRUG THERAPY 12/17/2016 MORENITA FARRIS [employer] MUSIC DIRECTOR Ot C25.0 MALIGNANT NEOPLASM OF HEAD OF PANCREAS 12/17/2016 MORENITA FARRIS [employer] MUSIC DIRECTOR Ot Z79.899 OTHER ALF (CURRENT) DRUG THERAPY 12/17/2016 MORENITA FARRIS [employer] MUSIC DIRECTOR Ot C25.0 MALIGNANT NEOPLASM OF HEAD OF PANCREAS 12/17/2016 MORENITA FARRIS [employer] MUSIC DIRECTOR Ot 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 12/17/2016 MORENITA FARRIS [employer] MUSIC DIRECTOR Ot 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 12/17/2016 MORENITA FARRIS [employer] MUSIC DIRECTOR Ot T45.1X5A ADVERSE EFFECT OF ANTINEOPLASTIC AND IMM 12/17/2016 MORENITA FARRIS [employer] MUSIC DIRECTOR Ot Z79.899 OTHER ALF (CURRENT) DRUG THERAPY 12/17/2016 MORENITA FARRIS [employer] MUSIC DIRECTOR Ot C25.0 MALIGNANT NEOPLASM OF HEAD OF PANCREAS 12/17/2016 MORENITA FARRIS [employer] MUSIC DIRECTOR Ot C25.0 MALIGNANT NEOPLASM OF HEAD OF PANCREAS 12/17/2016 MORENITA FARRISP Ot 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 12/17/2016 MORENITA FARRIS [employer] MUSIC DIRECTOR Ot I10 ESSENTIAL (PRIMARY) HYPERTENSION 12/17/2016 MORENITA FARRIS [employer] MUSIC DIRECTOR Ot Z79.899 OTHER ALF (CURRENT) DRUG THERAPY 12/17/2016 YANETH LAZO, JENNIFER Hernandez Ot R31.9 HEMATURIA, UNSPECIFIED 12/17/2016 ANCELMO MARION [employer] MUSIC DIRECTOR Ot I10 ESSENTIAL (PRIMARY) HYPERTENSION 12/17/2016 ANCELMO MARION [employer] MUSIC DIRECTOR Ot I25.10 ATHSCL HEART DISEASE OF [place] CORONARY 12/17/2016 ANCELMO MARION [employer] MUSIC DIRECTOR Ot 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 12/17/2016 ANCELMO MARION [employer] MUSIC DIRECTOR Ot I70.213 ATHSCL [place] ARTERIES OF EXTRM W INTRMT 12/17/2016 ANCELMO MARION [employer] MUSIC DIRECTOR Ot R00.2 PALPITATIONS 12/17/2016 ANCELMO MARION [employer] MUSIC DIRECTOR Ot I10 ESSENTIAL (PRIMARY) HYPERTENSION 12/17/2016 ANCELMO MARION [employer] MUSIC DIRECTOR Ot I25.10 ATHSCL HEART DISEASE OF [place] CORONARY 12/17/2016 ANCELMO MARION [employer] MUSIC DIRECTOR Ot 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 12/17/2016 LOREANCELMO CONROY [employer]IGH SCHOOL MUSIC DIRECTOR Ot I70.213 ATHSCL [place] ARTERIES OF EXTRM W INTRMT 12/17/2016 LOREANCELMO CONROY [employer] SCHOOL MUSIC DIRECTOR Ot R00.2 PALPITATIONS 12/17/2016 MORENITA FARRIS [employer] MUSIC DIRECTOR Ot C25.0 MALIGNANT NEOPLASM OF HEAD OF PANCREAS 12/17/2016 MORENITA FARRIS [employer] MUSIC DIRECTOR Ot 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 12/17/2016 MORENITA FARRIS [employer] MUSIC DIRECTOR Ot I10 ESSENTIAL (PRIMARY) HYPERTENSION 12/17/2016 MORENITA FARRIS [employer]CHO[employer] MUSIC DIRECTOR Ot R74.8 ABNORMAL LEVELS OF OTHER SERUM ENZYMES 12/17/2016 MORENITA FARRIS [employer] MUSIC DIRECTOR Ot Z79.899 OTHER ALF (CURRENT) DRUG THERAPY 12/17/2016 MORENITA FARRIS [employer] MUSIC DIRECTOR Ot C25.0 MALIGNANT NEOPLASM OF HEAD OF PANCREAS 12/17/2016 MORENITA FARRIS S [employer]IGH SCHOOL MUSIC DIRECTOR Ot C25.0 MALIGNANT NEOPLASM OF HEAD OF PANCREAS 12/17/2016 MORENITA FARRIS [employer] MUSIC DIRECTOR Ot 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 12/17/2016 MORENITA FARRIS [employer] MUSIC DIRECTOR Ot I10 ESSENTIAL (PRIMARY) HYPERTENSION 12/17/2016 MORENITA FARRIS [employer] MUSIC DIRECTOR Ot R74.8 ABNORMAL LEVELS OF OTHER SERUM ENZYMES 12/17/2016 MORENITA FARRIS [employer] MUSIC DIRECTOR Ot Z79.899 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 ROOM INSPECTOR (CURRENT) DRUG THERAPY 12/17/2016 MORENITA FARRIS [employer] MUSIC DIRECTOR Ot C25.0 MALIGNANT NEOPLASM OF HEAD OF PANCREAS 12/17/2016 MORENITA FARRIS [employer]CHO[employer] MUSIC DIRECTOR Ot 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 12/17/2016 MORENITA FARRIS [employer]CHO[employer] MUSIC DIRECTOR Ot D64.9 ANEMIA, UNSPECIFIED 12/17/2016 MORENITA FARRIS S [employer] SCHOOL MUSIC DIRECTOR Ot I10 ESSENTIAL (PRIMARY) HYPERTENSION 12/17/2016 MORENITA FARRIS S [employer] SCHOOL MUSIC DIRECTOR Ot Z79.899 OTHER ALF (CURRENT) DRUG THERAPY 12/17/2016 MORENITA FARRIS [employer] MUSIC DIRECTOR Ot C25.0 MALIGNANT NEOPLASM OF HEAD OF PANCREAS 12/17/2016 MORENITA FARRIS [employer] SCHO[employer] MUSIC DIRECTOR Ot C25.0 MALIGNANT NEOPLASM OF HEAD OF [...] JENNIFER Hernandez Ot 414.01 CORONARY ATHEROSCLEROSIS OF [place] CORON 12/17/2016 YANETH LAZO, JENNIFER Hernandez Ot [...] V72.84 EXAM PRE-OPERATIVE NOS 12/17/2016 MORENITA FARRIS [employer] MUSIC DIRECTOR Ot 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 PANCREAS HEAD 12/17/2016 MORENITA FARRIS [employer] MUSIC DIRECTOR Ot 196.9 MAL LEX LYMPH NODE NOS 12/17/2016 MORENITA FARRIS [employer] MUSIC DIRECTOR Ot V58.69 OTH MED,LT,CURRENT USE 12/17/2016 Ot 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 PANCREAS HEAD 12/17/2016 Ot 196.9 MAL LEX LYMPH NODE NOS 12/17/2016 Ot 285.9 ANEMIA NOS 12/17/2016 Ot 288.60 LEUKOCYTOSIS , UNSPECIFIED 12/17/2016 Ot 780.60 FEVER, UNSPECIFIED 12/17/2016 Ot 782.4 JAUNDICE NOS 12/17/2016 Ot V58.69 OTH MED,LT, CURRENT USE 12/17/2016 Ot 288.60 LEUKOCYTOSIS , UNSPECIFIED 12/17/2016 Ot 780.60 FEVER, UNSPECIFIED 12/17/2016 FARRSI, HILAH S [employer] SCHOOL MUSIC DIRECTOR Ot 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 PANCREAS HEAD 12/17/2016 FARRIS, HILAH S [employer] SCHOOL MUSIC DIRECTOR Ot 196.9 MAL LEX LYMPH NODE NOS 12/17/2016 FARRIS HILAH S [employer] SCHOOL MUSIC DIRECTOR Ot 285.9 ANEMIA NOS 12/17/2016 FARRIS HILAH S [employer] SCHOOL MUSIC DIRECTOR Ot V58.69 OTH MED,LT,CURRENT USE 12/17/2016 FARRIS HILAH S [employer] SCHOOL MUSIC DIRECTOR Ot 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 PANCREAS HEAD 12/17/2016 FARRIS HILAH S [employer] SCHOOL MUSIC DIRECTOR Ot 196.9 MAL LEX LYMPH NODE NOS 12/17/2016 FARRIS HILAH S HIGH SCHOOL MUSIC DIRECTOR Ot 285.9 ANEMIA NOS 12/17/2016 FARRISMORENITA S HIGH SCHOOL MUSIC DIRECTOR Ot V58.69 OTH MED,LT,CURRENT USE 12/17/2016 FARRISMORENITA Mckeon S HIGH SCHOOL MUSIC DIRECTOR Ot 157.9 MALIG LEX PANCREAS NOS 12/17/2016 ROBERT SWENSON MD Ot 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 PANCREAS HEAD 12/17/2016 ROBERT SWENSON MD Ot 196.9 MAL LEX LYMPH NODE NOS 12/17/2016 ROBERT SWENSON MD Ot 285.9 ANEMIA NOS 12/17/2016 ROBERT SWENSON MD Ot V58.69 OTH MED,LT,CURRENT USE 12/17/2016 FARRIS, HILAH S [employer] SCHOOL MUSIC DIRECTOR Ot 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 PANCREAS HEAD 12/17/2016 FARRIS HILAH S [employer] SCHOOL MUSIC DIRECTOR Ot 196.9 MAL LEX LYMPH NODE NOS 12/17/2016 FARRIS HILAH S [employer] SCHOOL MUSIC DIRECTOR Ot 285.9 ANEMIA NOS 12/17/2016 FARRIS HILAH S [employer]IGH SCHOOL MUSIC DIRECTOR Ot V58.69 OTH MED,LT,CURRENT USE 12/17/2016 FARRISGERAAH S HIGH SCHOOL MUSIC DIRECTOR Ot 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 PANCREAS HEAD 12/17/2016 FARRIS HILAH S HIGH SCHOOL MUSIC DIRECTOR Ot 196.9 MAL LEX LYMPH NODE NOS 12/17/2016 KALEIGHMORENITA HIGH SCHOOL MUSIC DIRECTOR Ot 285.9 ANEMIA NOS 12/17/2016 GERA FARRISLATA Mckeon [employer] MUSIC DIRECTOR Ot V58.69 OT MED,LT,CURRENT USE 12/17/2016 KALEIGH MORENITA Mckeon [employer] MUSIC DIRECTOR Ot 157.9 MALIG LEX PANCREAS NOS 12/17/2016 MORENITA FARRIS [employer] MUSIC DIRECTOR Ot C25.0 MALIGNANT NEOPLASM OF HEAD OF PANCREAS 12/17/2016 GERA FARRISLATA Mike [employer]IGH SCHOOL MUSIC DIRECTOR Ot 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 12/17/2016 MORENITA FARRIS [employer] MUSIC DIRECTOR Ot Z79.899 OTHER ALF (CURRENT) DRUG THERAPY 12/17/2016 MORENITA FARRIS [employer] DIRECTOR Ot C25.0 MALIGNANT NEOPLASM OF HEAD OF PANCREAS 12/17/2016 MORENITA FARRIS [employer] DIRECTOR Ot Z79.899 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 ROOM INSPECTOR (CURRENT) DRUG THERAPY 12/17/2016 MORENITA FARRIS [employer] DIRECTOR Ot C25.0 MALIGNANT NEOPLASM OF HEAD OF PANCREAS 12/17/2016 MORENITA FARRIS [employer] DIRECTOR Ot Z79.899 OTHER ALF (CURRENT) DRUG THERAPY 12/17/2016 MORENITA FARRIS [employer] DIRECTOR Ot C25.0 MALIGNANT NEOPLASM OF HEAD OF PANCREAS 12/17/2016 MORENITA FARRIS [employer] DIRECTOR Ot C77.9 SECONDARY AND UNSP MALIGNANT NEOPLASM OF 12/17/2016 MORENITA FARRIS [employer] DIRECTOR Ot 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 12/17/2016 MORENITA FARRIS [employer] DIRECTOR Ot T45.1X5A ADVERSE EFFECT OF ANTINEOPLASTIC AND IMM 12/17/2016 MORENITA FARRIS [employer] DIRECTOR Ot Z79.899 OTHER ALF (CURRENT) DRUG THERAPY 12/17/2016 MORENITA FARRIS [employer] DIRECTOR Ot C25.0 MALIGNANT NEOPLASM OF HEAD OF PANCREAS 12/17/2016 MORENITA FARRIS [employer] DIRECTOR Ot C25.0 MALIGNANT NEOPLASM OF HEAD OF PANCREAS 12/17/2016 MORENITA FARRIS [employer] DIRECTOR Ot C77.9 SECONDARY AND UNSP MALIGNANT NEOPLASM OF 12/17/2016 MORENITA FARRIS [employer] DIRECTOR Ot I10 ESSENTIAL (PRIMARY) HYPERTENSION 12/17/2016 MORENITA FARRIS [employer] DIRECTOR Ot Z79.899 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 ROOM INSPECTOR (CURRENT) DRUG THERAPY 12/17/2016 YANETH LAZO, JENNIFER Hernandez Ot R31.9 HEMATURIA, UNSPECIFIED 12/17/2016 BAIANCELMO CONROY L [employer] DIRECTOR Ot I10 ESSENTIAL (PRIMARY) HYPERTENSION 12/17/2016 BAIREENA CONROYHER L [employer] DIRECTOR Ot I25.10 ATHSCL HEART DISEASE OF [place] CORONARY 12/17/2016 BAIREENA CONROYHER L [employer] DIRECTOR Ot 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 12/17/2016 BAIMA, ANCELMO L [employer]IC DIRECTOR Ot I70.213 ATHSCL [place] ARTERIES OF [facility] 12/17/2016 BAIREENA CONROYHER L [employer] MUSIC DIRECTOR Ot R00.2 PALPITATIONS 12/17/2016 BAIMA ANCELMO L [employer]IC DIRECTOR Ot I10 ESSENTIAL (PRIMARY) HYPERTENSION 12/17/2016 BAIREENA CONROYHER L [employer] MUSIC DIRECTOR Ot I25.10 ATHSCL HEART DISEASE OF [place] CORONARY 12/17/2016 BAIMAREENAANCELMO L [employer]IGH SCHO[employer] MUSIC DIRECTOR Ot 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 12/17/2016 BAIMAREENAANCELMO L [employer] MUSIC DIRECTOR Ot I70.213 ATHSCL [place] ARTERIES OF [facility] 12/17/2016 BAIANCELMO CONROY L [employer]IC DIRECTOR Ot R00.2 PALPITATIONS 12/17/2016 MORENITA FARRISP Ot C25.0 MALIGNANT NEOPLASM OF HEAD OF PANCREAS 12/17/2016 MORENITA FARRIS [employer] DIRECTOR Ot 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 12/17/2016 MORENITA FARRIS [employer] DIRECTOR Ot I10 ESSENTIAL (PRIMARY) HYPERTENSION 12/17/2016 MORENITA FARRISP Ot R74.8 ABNORMAL LEVELS OF OTHER SERUM ENZYMES 12/17/2016 MORENITA FARRIS [employer] DIRECTOR Ot Z79.899 OTHER ALF (CURRENT) DRUG THERAPY 12/17/2016 MORENITA FARRIS [employer] DIRECTOR Ot C25.0 MALIGNANT NEOPLASM OF HEAD OF PANCREAS 12/17/2016 MORENITA FARRIS [employer] DIRECTOR Ot C25.0 MALIGNANT NEOPLASM OF HEAD OF PANCREAS 12/17/2016 MORENITA FARRIS [employer] DIRECTOR Ot 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 12/17/2016 MORENITA FARRIS [employer] DIRECTOR Ot I10 ESSENTIAL (PRIMARY) HYPERTENSION 12/17/2016 MORENITA FARRIS [employer] DIRECTOR Ot R74.8 ABNORMAL LEVELS OF OTHER SERUM ENZYMES 12/17/2016 FARRISMORENITA Mckeon [employer] MUSIC DIRECTOR Ot Z79.899 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 ROOM INSPECTOR (CURRENT) DRUG THERAPY 12/17/2016 FARRISMORENITA Mckeon [employer]IC DIRECTOR Ot C25.0 MALIGNANT NEOPLASM OF HEAD OF PANCREAS 12/17/2016 FARRISMORENITA Mckeon [employer]IC DIRECTOR Ot 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 12/17/2016 KALEIGH MORENITA Mckeon [employer] DIRECTOR Ot D64.9 ANEMIA, UNSPECIFIED 12/17/2016 FARRISGERALATA Mckeon [employer] MUSIC DIRECTOR Ot I10 ESSENTIAL (PRIMARY) HYPERTENSION 12/17/2016 FARRISMORENITA Mckeon [employer] MUS[employer] DIRECTOR Ot Z79.899 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 ROOM INSPECTOR (CURRENT) DRUG THERAPY 12/17/2016 KALEIGH MORENITA Mckeon [employer] MUSIC DIRECTOR Ot C25.0 MALIGNANT NEOPLASM OF HEAD OF PANCREAS 12/17/2016 FARRIS MORENITA Mckeon [employer] MUSIC DIRECTOR Ot C25.0 MALIGNANT NEOPLASM OF HEAD OF PANCREAS 12/17/2016 XIN PATE Ot C25.0 MALIGNANT NEOPLASM OF HEAD OF PANCREAS 12/17/2016 XIN PATE Ot 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 12/17/2016 XIN PATE Ot D64.9 ANEMIA, UNSPECIFIED 12/17/2016 XIN PATE Ot Z23 ENCOUNTER FOR IMMUNIZATION 12/17/2016 XIN PATE Ot Z79.899 OTHER ALF (CURRENT) DRUG THERAPY 12/18/2016 GERA FARRISLATA Mckeon [employer] MUSIC DIRECTOR Ot C25.0 MALIGNANT NEOPLASM OF HEAD OF PANCREAS 12/18/2016 GERA FARRISLATA Mike [employer] MUSIC DIRECTOR Ot R22.2 LOCALIZED SWELLING, MASS AND LUMP, TRUNK 12/18/2016 GERA FARRISLATA Mckeon [employer] MUSIC DIRECTOR Ot R59.0 LOCALIZED ENLARGED LYMPH NODES 12/18/2016 KALEIGH MORENITA Mckeon [employer] MUSIC DIRECTOR Ot R91.8 OTHER NONSPECIFIC ABNORMAL FINDING OF VIKKI 12/18/2016 XIN APTE Ot C25.0 MALIGNANT NEOPLASM OF HEAD OF PANCREAS 12/18/2016 XIN PATE Ot 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 12/18/2016 XIN PATE Ot D64.9 ANEMIA, UNSPECIFIED 12/18/2016 XIN PATE Ot Z79.899 OTHER ALF (CURRENT) DRUG THERAPY 12/18/2016 MORENITA FARRIS S [employer] MUSIC DIRECTOR Ot C25.0 MALIGNANT NEOPLASM OF HEAD OF PANCREAS 12/18/2016 FARRISMORENITA Mckeon S [employer]IGH [employer] MUSIC DIRECTOR Ot R22.2 LOCALIZED SWELLING, MASS AND LUMP, TRUNK 12/18/2016 FARRISMORENITA Mckeon S [employer] MUSIC DIRECTOR Ot R59.0 LOCALIZED ENLARGED LYMPH NODES 12/18/2016 FARRIS MORENITA S [employer]IGH SCHOOL MUSIC DIRECTOR Ot R91.8 OTHER NONSPECIFIC ABNORMAL FINDING OF VIKKI 12/30/2016 HERLINDA MARILUANGELICA N Ot C25.0 MALIGNANT NEOPLASM OF HEAD OF PANCREAS 12/30/2016 HERLINDAXIN Ot 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 12/30/2016 HERLINDAXIN N Ot D64.9 ANEMIA, UNSPECIFIED 12/30/2016 HERLINDAXIN Ot Z79.899 OTHER ALF (CURRENT) DRUG THERAPY 01/07/2017 FARRIS MORENITA S [employer] MUSIC DIRECTOR Ot C25.0 MALIGNANT NEOPLASM OF HEAD OF PANCREAS 01/07/2017 FARRIS MORENITA S [employer] MUSIC DIRECTOR Ot R22.2 LOCALIZED SWELLING, MASS AND LUMP, TRUNK 01/07/2017 FARRIS MORENITA S [employer] MUSIC DIRECTOR Ot R59.0 LOCALIZED ENLARGED LYMPH NODES 01/07/2017 FARRIS, MORENITA S [employer] S[employer] MUSIC DIRECTOR Ot R91.8 OTHER NONSPECIFIC ABNORMAL FINDING OF VIKKI 01/14/2017 FARRIS MORENITA S [employer]IGH [employer] MUSIC DIRECTOR Ot C25.0 MALIGNANT NEOPLASM OF HEAD OF PANCREAS 01/14/2017 FARRISMORENITA Mckeon S [employer]IGH S[employer]OL MUSIC DIRECTOR Ot R22.2 LOCALIZED SWELLING, MASS AND LUMP, TRUNK 01/14/2017 FARRIS MORENITA S [employer] MUSIC DIRECTOR Ot R59.0 LOCALIZED ENLARGED LYMPH NODES 01/14/2017 KALEIGH MORENITA S [employer] SCHO[employer] MUSIC DIRECTOR Ot R91.8 OTHER NONSPECIFIC ABNORMAL FINDING OF VIKKI 01/21/2017 IXN PATE N Ot C25.0 MALIGNANT NEOPLASM OF HEAD OF PANCREAS 01/21/2017 XIN PTAE Ot 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 01/21/2017 XIN PATE Ot D64.9 ANEMIA, UNSPECIFIED 01/21/2017 XIN PATE N Ot Z79.899 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 ROOM INSPECTOR (CURRENT) DRUG THERAPY 01/23/2017 RONEL MARES APRN Ot 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, UNSPECIF 01/23/2017 RONEL MARES GERIATRIC NURSE Ot I10 ESSENTIAL (PRIMARY) HYPERTENSION 01/23/2017 RONLE MARES APRN Ot M47.814 SPONDYLOSIS W/O MYELOPATHY OR RADICULOPA 01/23/2017 RONEL MARES APRN Ot M47.816 SPONDYLOSIS W/O MYELOPATHY OR RADICULOPA 01/23/2017 RONEL MARES APRN Ot M54.6 PAIN IN THORACIC SPINE 01/23/2017 RONEL MARES APRN Ot Z79.899 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 ROOM INSPECTOR (CURRENT) DRUG THERAPY 01/25/2017 RONEL MARES GERIATRIC NURSE Ot 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, UNSPECIF 01/25/2017 RONEL MARES GERIATRIC NURSE Ot I10 ESSENTIAL (PRIMARY) HYPERTENSION 01/25/2017 RONEL MARES APRN Ot M47.814 SPONDYLOSIS W/O MYELOPATHY OR RADICULOPA 01/25/2017 RONEL MARES APRN Ot M47.816 SPONDYLOSIS W/O MYELOPATHY OR RADICULOPA 01/25/2017 RONEL MARES APRN Ot M54.6 PAIN IN THORACIC SPINE 01/25/2017 RONEL MARES GERIATRIC NURSE Ot Z79.899 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 ROOM INSPECTOR (CURRENT) DRUG THERAPY 02/08/2017 XIN PATE Ot C25.0 MALIGNANT NEOPLASM OF HEAD OF PANCREAS 02/08/2017 XIN PATE Ot 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 02/11/2017 ITZEL SCOTT DO Ot Y99.8 OTHER [...] DO Ot Y92.[address] TO SINGLE-FAMILY ([facility] 02/13/2017 ITZEL SCOTT DO Ot Y99.8 OTHER EXTERNAL CAUSE STATUS 02/13/2017 ITZEL SCOTT DO Ot Z79.899 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 ROOM INSPECTOR (CURRENT) DRUG THERAPY 02/17/2017 TIZEL SCOTT DO Ot C25.9 MALIGNANT NEOPLASM OF [...] DO Ot Y92.[address] TO SINGLE-FAMILY ([facility] 02/17/2017 ITZEL SCOTT DO Ot Y99.8 OTHER EXTERNAL CAUSE STATUS 02/17/2017 ITZEL SCOTT DO Ot Z79.899 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 ROOM INSPECTOR (CURRENT) DRUG THERAPY 02/17/2017 ITZEL SCOTT DO [...] 02/17/2017 ITZEL SCOTT DO Ot Z79.899 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 ROOM INSPECTOR (CURRENT) DRUG THERAPY 02/17/2017 ERICKA MONTGOMERY MD [...] CHEMOTHERAP 03/17/2017 XIN PATE Ot Z79.899 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 ROOM INSPECTOR (CURRENT) DRUG THERAPY 03/18/2017 ZAYRA ELIZONDO MD [...] UNSPECIFIED 03/19/2017 XIN PATE Ot Z79.899 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 ROOM INSPECTOR (CURRENT) DRUG THERAPY 03/20/2017 RONEL MARES APRN [...] 03/23/2017 RONEL MARES APRN Ot Z79.899 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 ROOM INSPECTOR (CURRENT) DRUG THERAPY 03/23/2017 RONEL MARES APRN [...] 04/01/2017 SALINA COTA MD Ot Z79.899 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 ROOM INSPECTOR (CURRENT) DRUG THERAPY 04/01/2017 SALINA COTA MD [...] 04/02/2017 SALINA COTA MD Ot Z79.899 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 ROOM INSPECTOR (CURRENT) DRUG THERAPY 04/02/2017 SALINA COTA MD Ot Z95.828 PRESENCE OF [...] UNSPECIFIED 04/14/2017 XIN PATE Ot Z79.899 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 ROOM INSPECTOR (CURRENT) DRUG THERAPY 04/14/2017 ZAYRA ELIZONDO MD [...] NEOPLASM OF HEAD OF PANCREAS 04/16/2017 MORENITA FRARISP Ot M79.605 PAIN IN LEFT LEG 04/16/2017 MORENITA FRARISP Ot M79.89 OTHER SPECIFIED SOFT TISSUE DISORDERS 04/16/2017 MORENITA FARRIS [employer] MUSIC DIRECTOR Ot C25.0 MALIGNANT NEOPLASM OF HEAD OF PANCREAS 04/16/2017 MORENITA FARRIS [employer] MUSIC DIRECTOR Ot M79.605 PAIN IN LEFT LEG 04/16/2017 MORENITA FARRIS S [employer] MUSIC DIRECTOR Ot M79.89 OTHER SPECIFIED SOFT TISSUE DISORDERS 04/16/2017 MORENITA FARRIS [employer] MUSIC DIRECTOR Ot C25.0 MALIGNANT NEOPLASM OF HEAD OF PANCREAS 04/16/2017 MORENITA FARRIS S [employer]IGH S[employer] MUSIC DIRECTOR Ot M79.605 PAIN IN LEFT LEG 04/16/2017 FARRIS MORENITA S [employer]IGH SCHOOL MUSIC DIRECTOR Ot M79.89 OTHER SPECIFIED SOFT TISSUE DISORDERS 04/16/2017 MORENITA FARRIS S [employer]IGH SCHOOL MUSIC DIRECTOR Ot C25.0 MALIGNANT NEOPLASM OF HEAD OF PANCREAS 04/16/2017 FARRISMORENITA Mckeon S HIGH SCHOOL MUSIC DIRECTOR Ot M79.605 PAIN IN LEFT LEG 04/16/2017 FARRIS MORENITA S [employer]IGH SCHOOL MUSIC DIRECTOR Ot M79.89 OTHER SPECIFIED SOFT TISSUE DISORDERS 04/16/2017 MORENITA FARRIS [employer] MUSIC DIRECTOR Ot C25.0 MALIGNANT NEOPLASM OF HEAD OF PANCREAS 04/16/2017 FARRISMORENITA Mckeon S HIGH SCHOOL MUSIC DIRECTOR Ot M79.605 PAIN IN LEFT LEG 04/16/2017 FARRIS MORENITA Mckeon [employer]OL MUSIC DIRECTOR Ot M79.89 OTHER SPECIFIED SOFT TISSUE DISORDERS 04/16/2017 MORENITA FARRIS [employer] S[employer] MUSIC DIRECTOR Ot C25.0 MALIGNANT NEOPLASM OF HEAD OF PANCREAS 04/16/2017 FARRISMORENITA Mckeon S [employer]IGH SCHOOL MUSIC DIRECTOR Ot M79.605 PAIN IN LEFT LEG 04/16/2017 FARRISMORENITA cMkeon S HIGH SCHOOL MUSIC DIRECTOR Ot M79.89 OTHER SPECIFIED SOFT TISSUE DISORDERS [...] 04/22/2017 ITZEL SCOTT DO Ot Z79.899 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 ROOM INSPECTOR (CURRENT) DRUG THERAPY 04/28/2017 MORENITA FARRIS [employer] MUSIC DIRECTOR Ot C25.0 MALIGNANT NEOPLASM OF HEAD OF PANCREAS 04/28/2017 MORENITA FARRIS [employer] MUSIC DIRECTOR Ot R91.1 SOLITARY PULMONARY NODULE 05/03/2017 MORENITA FARRIS [employer] MUSIC DIRECTOR Ot C25.0 MALIGNANT NEOPLASM OF HEAD OF PANCREAS 05/03/2017 MORENITA FARRIS [employer] MUSIC DIRECTOR Ot R91.1 SOLITARY PULMONARY NODULE 05/04/2017 MORENITA FARRIS [employer] MUSIC DIRECTOR Ot C25.0 MALIGNANT NEOPLASM OF HEAD OF PANCREAS 05/04/2017 MORENITA FARRIS [employer] MUSIC DIRECTOR Ot M79.605 PAIN IN LEFT LEG 05/04/2017 MORENITA FARRIS [employer] MUSIC DIRECTOR Ot M79.89 OTHER SPECIFIED SOFT TISSUE DISORDERS 05/13/2017 MORENITA FARRIS [employer] MUSIC DIRECTOR Ot C25.0 MALIGNANT NEOPLASM OF HEAD OF PANCREAS 05/13/2017 MORENITA FARRIS [employer] MUSIC DIRECTOR Ot M79.605 PAIN IN LEFT LEG 05/13/2017 MORENITA FARRIS [employer] MUSIC DIRECTOR Ot M79.89 OTHER SPECIFIED SOFT TISSUE DISORDERS 05/20/2017 MORENITA FARRIS [employer] MUSIC DIRECTOR Ot C25.0 MALIGNANT NEOPLASM OF HEAD OF PANCREAS 05/20/2017 MORENITA FARRIS [employer] MUSIC DIRECTOR Ot R91.1 SOLITARY PULMONARY NODULE 05/28/2017 MORENITA FARRIS [employer] MUSIC DIRECTOR Ot C25.0 MALIGNANT NEOPLASM OF HEAD OF PANCREAS 05/28/2017 MORENITA FARRIS [employer] MUSIC DIRECTOR Ot R91.1 SOLITARY PULMONARY NODULE 06/10/2017 Ot 401.9 HYPERTENSION NOS 06/10/2017 Ot 785.1 PALPITATIONS 06/10/2017 Ot V12.59 HX- CIRCULATORY SYST DIS,NEC 06/10/2017 Ot V15.82 HISTORY OF TOBACCO USE 06/10/2017 JENNIFER WOLFE MD Ot V76.12 OTH SCREEN MAMMO-MALIGN NEOPLASM OF [place] 06/10/2017 JENNIFER WOLFE MD Ot 272.4 HYPERLIPIDEMIA NEC/NOS 06/10/2017 JENNIFER WOLFE MD Ot 414.01 CORONARY ATHEROSCLEROSIS OF [place] CORON 06/10/2017 JENNIFER WOLFE MD Ot 786.50 [...] EXAM PRE-OPERATIVE NOS 06/10/2017 FARRIS, HILAH S [employer]IGH SCHO[employer] MUSIC DIRECTOR Ot 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 PANCREAS HEAD 06/10/2017 FARRIS, HILAH S [employer] S[employer] MUSIC DIRECTOR Ot 196.9 MAL LEX LYMPH NODE NOS 06/10/2017 FARRISMORENITA Mckeon S [employer]IGH SCHOOL MUSIC DIRECTOR Ot V58.69 OTH MED,LT,CURRENT USE 06/10/2017 Ot 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 PANCREAS HEAD 06/10/2017 Ot 196.9 MAL LEX LYMPH NODE NOS 06/10/2017 Ot 285.9 ANEMIA NOS 06/10/2017 Ot 288.60 LEUKOCYTOSIS , UNSPECIFIED 06/10/2017 Ot 780.60 FEVER, UNSPECIFIED 06/10/2017 Ot 782.4 JAUNDICE NOS 06/10/2017 Ot V58.69 OTH MED,LT, CURRENT USE 06/10/2017 Ot 288.60 LEUKOCYTOSIS , UNSPECIFIED 06/10/2017 Ot 780.60 FEVER, UNSPECIFIED 06/10/2017 MORENITA FARRIS S [employer] S[employer] MUSIC DIRECTOR Ot 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 PANCREAS HEAD 06/10/2017 FARRIS, HILAH S HIGH SCHOOL MUSIC DIRECTOR Ot 196.9 MAL LEX LYMPH NODE NOS 06/10/2017 FARRIS HILAH S [employer] SCHOOL MUSIC DIRECTOR Ot 285.9 ANEMIA NOS 06/10/2017 FARRISGERAAH S HIGH SCHOOL MUSIC DIRECTOR Ot V58.69 OTH MED,LT,CURRENT USE 06/10/2017 FARRISGERAAH S HIGH SCHOOL MUSIC DIRECTOR Ot 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 PANCREAS HEAD 06/10/2017 FARRIS HILAH S HIGH SCHOOL MUSIC DIRECTOR Ot 196.9 MAL LEX LYMPH NODE NOS 06/10/2017 FARRIS HILAH S HIGH SCHOOL MUSIC DIRECTOR Ot 285.9 ANEMIA NOS 06/10/2017 FARRISMORENITA Mckeon S [employer]IGH SCHOOL MUSIC DIRECTOR Ot V58.69 OTH MED,LT,CURRENT USE 06/10/2017 MORENITA FARRIS [employer] MUSIC DIRECTOR Ot 157.9 MALIG LEX PANCREAS NOS 06/10/2017 ROBERT SWENSON MD Ot 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 PANCREAS HEAD 06/10/2017 ROBERT SWENSON MD Ot 196.9 MAL LEX LYMPH NODE NOS 06/10/2017 ROBERT SWENSON MD Ot 285.9 ANEMIA NOS 06/10/2017 ROBERT SWENSON MD Ot V58.69 OTH MED,LT,CURRENT USE 06/10/2017 MORENITA FARRIS [employer] SCHO[employer] MUSIC DIRECTOR Ot 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 PANCREAS HEAD 06/10/2017 MORENITA FARRIS S [employer]IGH SCHOOL MUSIC DIRECTOR Ot 196.9 MAL LEX LYMPH NODE NOS 06/10/2017 MORENITA FARRIS [employer] SCHOOL MUSIC DIRECTOR Ot 285.9 ANEMIA NOS 06/10/2017 MORENITA FARRIS [employer] SCHOOL MUSIC DIRECTOR Ot V58.69 OTH MED,LT,CURRENT USE 06/10/2017 MORENITA FARRIS [employer] MUSIC DIRECTOR Ot 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 PANCREAS HEAD 06/10/2017 MORENITA FARRIS S [employer]IGH SCHOOL MUSIC DIRECTOR Ot 196.9 MAL LEX LYMPH NODE NOS 06/10/2017 MORENITA FARRIS S [employer] SCHOOL MUSIC DIRECTOR Ot 285.9 ANEMIA NOS 06/10/2017 MORENITA FARRIS [employer] SCHO[employer] MUSIC DIRECTOR Ot V58.69 OTH MED,LT,CURRENT USE 06/10/2017 MORENITA FARRIS [employer] MUSIC DIRECTOR Ot 157.9 MALIG LEX PANCREAS NOS 06/10/2017 MORENITA FARRIS S [employer]IGH SCHOOL MUSIC DIRECTOR Ot C25.0 MALIGNANT NEOPLASM OF HEAD OF PANCREAS 06/10/2017 MORENITA FARRIS [employer] S[employer] MUSIC DIRECTOR Ot 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 06/10/2017 MORENITA FARRIS [employer] S[employer] MUSIC DIRECTOR Ot Z79.899 OTHER ALF (CURRENT) DRUG THERAPY 06/10/2017 MORENITA FARRIS [employer] SCHOOL MUSIC DIRECTOR Ot C25.0 MALIGNANT NEOPLASM OF HEAD OF PANCREAS 06/10/2017 MORENITA FARRIS HIGH SCHOOL MUSIC DIRECTOR Ot Z79.899 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 ROOM INSPECTOR (CURRENT) DRUG THERAPY 06/10/2017 MORENITA FARRIS [employer] SCHOOL MUSIC DIRECTOR Ot C25.0 MALIGNANT NEOPLASM OF HEAD OF PANCREAS 06/10/2017 MORENITA FARRIS HIGH SCHOOL MUSIC DIRECTOR Ot Z79.899 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 ROOM INSPECTOR (CURRENT) DRUG THERAPY 06/10/2017 MORENITA FARRIS S HIGH SCHOOL MUSIC DIRECTOR Ot C25.0 MALIGNANT NEOPLASM OF HEAD OF PANCREAS 06/10/2017 MORENITA FARRIS [employer]IGH SCHOOL MUSIC DIRECTOR Ot 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 06/10/2017 MORENITA FARRIS HIGH SCHOOL MUSIC DIRECTOR Ot 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 06/10/2017 MORENITA FARRIS [employer]IGH SCHO[employer] MUSIC DIRECTOR Ot T45.1X5A ADVERSE EFFECT OF ANTINEOPLASTIC AND IMM 06/10/2017 MORENITA FARRIS [employer] SCHO[employer] MUSIC DIRECTOR Ot Z79.899 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 ROOM INSPECTOR (CURRENT) DRUG THERAPY 06/10/2017 MORENITA FARRIS [employer]IGH SCHOOL MUSIC DIRECTOR Ot C25.0 MALIGNANT NEOPLASM OF HEAD OF PANCREAS 06/10/2017 MORENITA FARRIS HIGH SCHOOL MUSIC DIRECTOR Ot C25.0 MALIGNANT NEOPLASM OF HEAD OF PANCREAS 06/10/2017 MORENITA FARRIS HIGH SCHOOL MUSIC DIRECTOR Ot 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 06/10/2017 MORENITA FARRIS [employer] S[employer] MUSIC DIRECTOR Ot I10 ESSENTIAL (PRIMARY) HYPERTENSION 06/10/2017 MORENITA FARRIS [employer]IGH SCHOOL MUSIC DIRECTOR Ot Z79.899 OTHER ALF (CURRENT) DRUG THERAPY 06/10/2017 YANETH LAZO, JENNIFER Hernandez Ot R31.9 HEMATURIA, UNSPECIFIED 06/10/2017 LOREREENA CONROYHER L [employer]IGH S[employer]OL MUSIC DIRECTOR Ot I10 ESSENTIAL (PRIMARY) HYPERTENSION 06/10/2017 BAIMARYCARMEN ANCELMO L HIGH SCHOOL MUSIC DIRECTOR Ot I25.10 ATHSCL HEART DISEASE OF [place] CORONARY 06/10/2017 LOREMAREENAANCELMO L HIGH SCHOOL MUSIC DIRECTOR Ot 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 06/10/2017 BAIMAREENAANCELMO L HIGH SCHOOL MUSIC DIRECTOR Ot 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2 PALPITATIONS 06/10/2017 GERA FARRISAH S [employer] SCHOOL MUSIC DIRECTOR Ot C25.0 MALIGNANT NEOPLASM OF HEAD OF PANCREAS 06/10/2017 GERA FARRISLATA Mckeon HIGH SCHOOL MUSIC DIRECTOR Ot 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 06/10/2017 MORENITA FARRIS [employer] MUSIC DIRECTOR Ot I10 ESSENTIAL (PRIMARY) HYPERTENSION 06/10/2017 MORENITA FARRIS [employer] SCHO[employer] MUSIC DIRECTOR Ot R74.8 ABNORMAL LEVELS OF OTHER SERUM ENZYMES 06/10/2017 MORENITA FARRIS [employer] MUSIC DIRECTOR Ot Z79.899 OTHER ALF (CURRENT) DRUG THERAPY 06/10/2017 MORENITA FARRIS HIGH SCHOOL MUSIC DIRECTOR Ot C25.0 MALIGNANT NEOPLASM OF HEAD OF PANCREAS 06/10/2017 MORENITA FARRIS S [employer]IGH SCHOOL MUSIC DIRECTOR Ot C25.0 MALIGNANT NEOPLASM OF HEAD OF PANCREAS 06/10/2017 MORENITA FARRIS [employer] SCHOOL MUSIC DIRECTOR Ot 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 06/10/2017 MORENITA FARRIS [employer] SCHOOL MUSIC DIRECTOR Ot I10 ESSENTIAL (PRIMARY) HYPERTENSION 06/10/2017 MORENITA FARRIS [employer] SCHOOL MUSIC DIRECTOR Ot R74.8 ABNORMAL LEVELS OF OTHER SERUM ENZYMES 06/10/2017 MORENITA FARRIS [employer]CHOOL MUSIC DIRECTOR Ot Z79.899 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 ROOM INSPECTOR (CURRENT) DRUG THERAPY 06/10/2017 MORENITA FARRIS [employer]CHOOL MUSIC DIRECTOR Ot C25.0 MALIGNANT NEOPLASM OF HEAD OF PANCREAS 06/10/2017 MORENITA FARRIS H[employer] SCHOOL MUSIC DIRECTOR Ot 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 06/10/2017 MORENITA FARRIS [employer]IGH SCHOOL MUSIC DIRECTOR Ot D64.9 ANEMIA, UNSPECIFIED 06/10/2017 MORENITA FARRIS [employer] S[employer] MUSIC DIRECTOR Ot I10 ESSENTIAL (PRIMARY) HYPERTENSION 06/10/2017 MORENITA FARRIS [employer]CHOOL MUSIC DIRECTOR Ot Z79.899 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 ROOM INSPECTOR (CURRENT) DRUG THERAPY 06/10/2017 MORENITA FARRIS [employer] SCHOOL MUSIC DIRECTOR Ot C25.0 MALIGNANT NEOPLASM OF HEAD OF PANCREAS 06/10/2017 MORENITA FARRIS HIGH SCHOOL MUSIC DIRECTOR Ot C25.0 MALIGNANT NEOPLASM OF HEAD OF PANCREAS 06/10/2017 MORENITA FARRIS H[employer] SCHOOL MUSIC DIRECTOR Ot C25.0 MALIGNANT NEOPLASM OF HEAD OF PANCREAS 06/10/2017 MORENITA FARRIS HIGH SCHOOL MUSIC DIRECTOR Ot R22.2 LOCALIZED SWELLING, MASS AND LUMP, TRUNK 06/10/2017 MORENITA FARRIS [employer] MUSIC DIRECTOR Ot R59.0 LOCALIZED ENLARGED LYMPH NODES 06/10/2017 MORENITA FARRIS HIGH SCHOOL MUSIC DIRECTOR Ot R91.8 OTHER NONSPECIFIC ABNORMAL FINDING OF VIKKI 06/10/2017 XIN PATE Ot C25.0 MALIGNANT NEOPLASM OF HEAD OF PANCREAS 06/10/2017 XIN PATE Ot 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 06/10/2017 XIN PATE Ot D64.9 ANEMIA, UNSPECIFIED 06/10/2017 XIN PATE Ot Z79.899 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 ROOM INSPECTOR (CURRENT) DRUG THERAPY 06/10/2017 FARRIS MORENITA Mckeon [employer] MUSIC DIRECTOR Ot C25.0 MALIGNANT NEOPLASM OF HEAD OF PANCREAS 06/10/2017 FARRISGERALATA Mike [employer] S[employer] MUSIC DIRECTOR Ot M79.605 PAIN IN LEFT LEG 06/10/2017 GERA FARRISLATA Mike [employer]IGH SCHOOL MUSIC DIRECTOR Ot M79.89 OTHER SPECIFIED SOFT TISSUE DISORDERS 06/10/2017 MORENITA FARRIS Mike [employer] S[employer] MUSIC DIRECTOR Ot C25.0 MALIGNANT NEOPLASM OF HEAD OF PANCREAS 06/10/2017 FARRIS MORENITA Mike [employer]IGH SCHOOL MUSIC DIRECTOR Ot R91.1 SOLITARY PULMONARY NODULE 06/11/2017 XIN PATE Ot C25.0 MALIGNANT NEOPLASM OF HEAD OF PANCREAS 06/11/2017 XIN PATE Ot 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 06/11/2017 XIN PATE Ot D64.9 ANEMIA, UNSPECIFIED 06/11/2017 XIN PATE N Ot Z79.899 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 ROOM INSPECTOR (CURRENT) DRUG THERAPY 06/11/2017 Ot 401.9 HYPERTENSION NOS 06/11/2017 Ot 785.1 PALPITATIONS 06/11/2017 Ot V12.59 HX- CIRCULATORY SYST DIS,NEC 06/11/2017 Ot V15.82 HISTORY OF TOBACCO USE 06/11/2017 YANETH LAZO, JENNIFER Hernandez Ot V76.12 OTH SCREEN MAMMO-MALIGN NEOPLASM OF [place] 06/11/2017 YANETH LAZO, JENNIFER Hernandez Ot 272.4 HYPERLIPIDEMIA NEC/NOS 06/11/2017 YANETH LAZO, JENNIFER Hernandez Ot 414.01 CORONARY ATHEROSCLEROSIS OF [place] CORON 06/11/2017 JENNIFER WOLFE MD Ot 786.50 [...] EXAM PRE-OPERATIVE NOS 06/11/2017 FARRIS, HILAH S [employer] MUSIC DIRECTOR Ot 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 PANCREAS HEAD 06/11/2017 FARRIS HILAH S [employer] MUSIC DIRECTOR Ot 196.9 MAL LEX LYMPH NODE NOS 06/11/2017 FARRIS HILAH S [employer] MUSIC DIRECTOR Ot V58.69 OTH MED,LT,CURRENT USE 06/11/2017 Ot 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 PANCREAS HEAD 06/11/2017 Ot 196.9 MAL LEX LYMPH NODE NOS 06/11/2017 Ot 285.9 ANEMIA NOS 06/11/2017 Ot 288.60 LEUKOCYTOSIS , UNSPECIFIED 06/11/2017 Ot 780.60 FEVER, UNSPECIFIED 06/11/2017 Ot 782.4 JAUNDICE NOS 06/11/2017 Ot V58.69 OTH MED,LT, CURRENT USE 06/11/2017 Ot 288.60 LEUKOCYTOSIS , UNSPECIFIED 06/11/2017 Ot 780.60 FEVER, UNSPECIFIED 06/11/2017 FARRIS HILAH S [employer] Ot 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 PANCREAS HEAD 06/11/2017 FARRIS, HILAH S [employer] DIRECTOR Ot 196.9 MAL LEX LYMPH NODE NOS 06/11/2017 FARRIS HILAH S [employer] DIRECTOR Ot 285.9 ANEMIA NOS 06/11/2017 FARRISGERAAH S [employer] DIRECTOR Ot V58.69 OTH MED,LT,CURRENT USE 06/11/2017 FARRIS HILAH S [employer] DIRECTOR Ot 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 PANCREAS HEAD 06/11/2017 FARRIS HILAH S [employer] DIRECTOR Ot 196.9 MAL LEX LYMPH NODE NOS 06/11/2017 FARRIS, HILAH S [employer] DIRECTOR Ot 285.9 ANEMIA NOS 06/11/2017 FARRIS HILAH S [employer] DIRECTOR Ot V58.69 OTH MED,LT,CURRENT USE 06/11/2017 FARRIS HILAH S [employer] DIRECTOR Ot 157.9 MALIG LEX PANCREAS NOS 06/11/2017 MESSI LAZO, ROBERT Ot 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 PANCREAS HEAD 06/11/2017 ROBERT SWENSON MD Ot 196.9 MAL LEX LYMPH NODE NOS 06/11/2017 ROBERT SWENSON MD Ot 285.9 ANEMIA NOS 06/11/2017 ROBERT SWENSON MD Ot V58.69 OTH MED,LT,CURRENT USE 06/11/2017 MORENTIA FARRIS [employer] DIRECTOR Ot 157.0 MAL LEX PANCREAS HEAD 06/11/2017 MORENITA FARRIS S [employer] DIRECTOR Ot 196.9 MAL LEX LYMPH NODE NOS 06/11/2017 MORENITA FARIRS S [employer] DIRECTOR Ot 285.9 ANEMIA NOS 06/11/2017 MORENITA FARRIS S [employer] DIRECTOR Ot V58.69 OTH MED,LT,CURRENT USE 06/11/2017 MORENITA FARRIS [employer] DIRECTOR Ot 157.0 MAL LEX PANCREAS HEAD 06/11/2017 MORENITA FARRIS S [employer] DIRECTOR Ot 196.9 MAL LEX LYMPH NODE NOS 06/11/2017 MORENITA FARRIS S [employer] DIRECTOR Ot 285.9 ANEMIA NOS 06/11/2017 MORENITA FARRIS S [employer] DIRECTOR Ot V58.69 OTH MED,LT,CURRENT USE 06/11/2017 MORENITA FARRIS S [employer] DIRECTOR Ot 157.9 MALIG LEX PANCREAS NOS 06/11/2017 MORENITA FARRIS S [employer] DIRECTOR Ot C25.0 MALIGNANT NEOPLASM OF HEAD OF PANCREAS 06/11/2017 MORENITA FARRIS [employer] DIRECT[employer] Ot 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 06/11/2017 MORENITA FARRIS [employer] DIRECTOR Ot Z79.899 OTHER ALF (CURRENT) DRUG THERAPY 06/11/2017 MORENITA FARRIS [employer] DIRECTOR Ot C25.0 MALIGNANT NEOPLASM OF HEAD OF PANCREAS 06/11/2017 MORENITA FARRIS [employer] DIRECTOR Ot Z79.899 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 ROOM INSPECTOR (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) DRUG THERAPY 06/11/2017 MORENITA FARRIS S [employer] DIRECTOR Ot C25.0 MALIGNANT NEOPLASM OF HEAD OF PANCREAS 06/11/2017 MORENITA FARRIS [employer] DIRECTOR Ot Z79.899 OTHER ALF (CURRENT) DRUG THERAPY 06/11/2017 MORENITA FARRIS [employer] DIRECTOR Ot C25.0 MALIGNANT NEOPLASM OF HEAD OF PANCREAS 06/11/2017 MORENITA FARRIS [employer] DIRECTOR Ot C77.9 SECONDARY AND UNSP MALIGNANT NEOPLASM OF 06/11/2017 MORENITA FARRIS [employer] DIRECTOR Ot 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 06/11/2017 GERA FARRISLATA Mckeon [employer] DIRECTOR Ot T45.1X5A ADVERSE EFFECT OF ANTINEOPLASTIC AND IMM 06/11/2017 FARRISGERALATA Mckeon [employer] DIRECTOR Ot Z79.899 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 ROOM INSPECTOR (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) DRUG THERAPY 06/11/2017 MORENITA FARRIS [employer] DIRECTOR Ot C25.0 MALIGNANT NEOPLASM OF HEAD OF PANCREAS 06/11/2017 GERA FARRISLATA Mckeon [employer] DIRECTOR Ot C25.0 MALIGNANT NEOPLASM OF HEAD OF PANCREAS 06/11/2017 KALEIGH MORENITA Mckeon [employer] DIRECTOR Ot C77.9 SECONDARY AND UNSP MALIGNANT NEOPLASM OF 06/11/2017 MORENITA FARRIS Mike [employer] DIRECTOR Ot I10 ESSENTIAL (PRIMARY) HYPERTENSION 06/11/2017 MORENITA FARRIS [employer] DIRECTOR Ot Z79.899 OTHER ALF (CURRENT) DRUG THERAPY 06/11/2017 YANETH LAZO, JENNIFER Hernandez Ot R31.9 HEMATURIA, UNSPECIFIED 06/11/2017 LOREMARYCARMENANCELMO [employer] DIRECTOR Ot I10 ESSENTIAL (PRIMARY) HYPERTENSION 06/11/2017 LOREMARYCAREMN ANCELMO L [employer] DIRECTOR Ot I25.10 ATHSCL HEART DISEASE OF [place] CORONARY 06/11/2017 LOREREENA CONROYHER L [employer] MUSIC DIRECTOR Ot 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 06/11/2017 LOREMA ANCELMO L [employer] MUSIC DIRECTOR Ot I70.213 ATHSCL [place] [facility] 06/11/2017 LOREANCELMO CONROY L [employer] MUSIC DIRECTOR Ot R00.2 PALPITATIONS 06/11/2017 DONI ANCELMO L [employer] MUSIC DIRECTOR Ot I10 ESSENTIAL (PRIMARY) HYPERTENSION 06/11/2017 LOREMARYCARMEN ANCELMO L [employer] MUSIC DIRECTOR Ot I25.10 ATHSCL HEART DISEASE OF [place] CORONARY 06/11/2017 LOREMA ANCELMO L [employer] MUSIC DIRECTOR Ot 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 06/11/2017 LOREMA ANCELMO L [employer] MUSIC DIRECTOR Ot I70.213 ATHSCL [place] [facility] 06/11/2017 LOREREENA CONROYHER L [employer] MUSIC DIRECTOR Ot R00.2 PALPITATIONS 06/11/2017 MORENITA FARRIS [employer] MUSIC DIRECTOR Ot C25.0 MALIGNANT NEOPLASM OF HEAD OF PANCREAS 06/11/2017 MORENITA FARRIS [employer] MUSIC DIRECTOR Ot 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 06/11/2017 MORENITA FARRIS S [employer] MUSIC DIRECTOR Ot I10 ESSENTIAL (PRIMARY) HYPERTENSION 06/11/2017 FARRISMORENITA HIGH SCHOOL MUSIC DIRECTOR Ot R74.8 ABNORMAL LEVELS OF OTHER SERUM ENZYMES 06/11/2017 GERA FARRISLATA Mckeon [employer] MUSIC DIRECTOR Ot Z79.899 OTHER ALF (CURRENT) DRUG THERAPY 06/11/2017 GERA FARRISLATA Mckeon [employer] MUSIC DIRECTOR Ot C25.0 MALIGNANT NEOPLASM OF HEAD OF PANCREAS 06/11/2017 GERA FARRISLATA Mckeon [employer] MUSIC DIRECTOR Ot C25.0 MALIGNANT NEOPLASM OF HEAD OF PANCREAS 06/11/2017 KALEIGH MORENITA Mckeon [employer] MUSIC DIRECTOR Ot 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 06/11/2017 GERA FARRISLATA Mckeon [employer] MUSIC DIRECTOR Ot I10 ESSENTIAL (PRIMARY) HYPERTENSION 06/11/2017 GERA FARRISLATA Mckeon [employer] S[employer] MUSIC DIRECTOR Ot R74.8 ABNORMAL LEVELS OF OTHER SERUM ENZYMES 06/11/2017 GERA FARRISLATA Mckeon [employer] MUSIC DIRECTOR Ot Z79.899 OTHER ALF (CURRENT) DRUG THERAPY 06/11/2017 MORENITA FARRIS Mike [employer] MUSIC DIRECTOR Ot C25.0 MALIGNANT NEOPLASM OF HEAD OF PANCREAS 06/11/2017 GERA FARRISLATA Mckeon [employer] MUSIC DIRECTOR Ot 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 06/11/2017 GERA FARRISLATA Mckeon [employer] MUSIC DIRECTOR Ot D64.9 ANEMIA, UNSPECIFIED 06/11/2017 MORENITA FARRIS Mike [employer] MUSIC DIRECTOR Ot I10 ESSENTIAL (PRIMARY) HYPERTENSION 06/11/2017 GERA FARRISLATA Mckeon [employer] MUSIC DIRECTOR Ot Z79.899 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 ROOM INSPECTOR (CURRENT) DRUG THERAPY 06/11/2017 MORENITA FARRIS Mike [employer] MUSIC DIRECTOR Ot C25.0 MALIGNANT NEOPLASM OF HEAD OF PANCREAS 06/11/2017 MORENITA FARRIS S [employer] MUSIC DIRECTOR Ot C25.0 MALIGNANT NEOPLASM OF HEAD OF PANCREAS 06/11/2017 KALEIGH MORENITA Mckeon [employer] MUSIC DIRECTOR Ot C25.0 MALIGNANT NEOPLASM OF HEAD OF PANCREAS 06/11/2017 MORENITA FARRSI S [employer] MUSIC DIRECTOR Ot R22.2 LOCALIZED SWELLING, MASS AND LUMP, TRUNK 06/11/2017 MORENITA FARRIS S [employer] MUSIC DIRECTOR Ot R59.0 LOCALIZED ENLARGED LYMPH NODES 06/11/2017 MORENITA FARRIS S [employer] S[employer] MUSIC DIRECTOR Ot R91.8 OTHER NONSPECIFIC ABNORMAL FINDING OF VIKKI 06/11/2017 XIN PATE Ot C25.0 MALIGNANT NEOPLASM OF HEAD OF PANCREAS 06/11/2017 XIN PATE N Ot 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 06/11/2017 XIN PATE Lilli Ot D64.9 ANEMIA, UNSPECIFIED 06/11/2017 XIN PATE Lilli Ot Z79.899 OTHER ALF (CURRENT) DRUG THERAPY 06/11/2017 MORENITA FARRIS [employer] MUSIC DIRECTOR Ot C25.0 MALIGNANT NEOPLASM OF HEAD OF PANCREAS 06/11/2017 FARRISMORENITA Mckeon [employer] MUSIC DIRECTOR Ot M79.605 PAIN IN LEFT LEG 06/11/2017 FARRISMORENITA Mckeon S [employer] MUSIC DIRECTOR Ot M79.89 OTHER SPECIFIED SOFT TISSUE DISORDERS 06/11/2017 MORENITA FARRIS [employer] MUSIC DIRECTOR Ot C25.0 MALIGNANT NEOPLASM OF HEAD OF PANCREAS 06/11/2017 MORENITA FARRIS [employer] MUSIC DIRECTOR Ot R91.1 SOLITARY PULMONARY NODULE 06/11/2017 FARRISMORENITA Mckeon [employer] MUSIC DIRECTOR Ot C25.0 MALIGNANT NEOPLASM OF HEAD OF PANCREAS 06/11/2017 FARRIS MORENITA Mckeon [employer] MUSIC DIRECTOR Ot 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 06/11/2017 FARRIS MORENITA Mckeon [employer] MUSIC DIRECTOR Ot D64.9 ANEMIA, UNSPECIFIED 06/11/2017 MORENITA FARRIS [employer] MUSIC DIRECTOR Ot Z79.899 OTHER ALF (CURRENT) DRUG THERAPY 06/12/2017 MORENITA FARRIS [employer] MUSIC DIRECTOR Ot C25.0 MALIGNANT NEOPLASM OF HEAD OF PANCREAS 06/12/2017 MORENITA FARRIS [employer] MUSIC DIRECTOR Ot 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 06/12/2017 FARRIS MORENITA Mckeon [employer] MUSIC DIRECTOR Ot D64.9 ANEMIA, UNSPECIFIED 06/12/2017 FARRISMORENITA Mckeon [employer] MUSIC DIRECTOR Ot Z79.899 OTHER ALF (CURRENT) DRUG THERAPY [...] ALF (CURRENT) DRUG THERAPY 07/09/2017 MORENITA FARRIS [employer] MUSIC DIRECTOR Ot C25.0 MALIGNANT NEOPLASM OF HEAD OF PANCREAS 07/09/2017 MORENITA FARRIS [employer] MUSIC DIRECTOR Ot 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 07/09/2017 MORENITA FARRIS [employer] MUSIC DIRECTOR Ot D64.9 ANEMIA, UNSPECIFIED 07/09/2017 FARRISMORENITA Mckeon [employer] MUSIC DIRECTOR Ot Z79.899 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 ROOM INSPECTOR (CURRENT) DRUG THERAPY 07/17/2017 HERLINDAXIN BRAUN N Ot C25.0 MALIGNANT NEOPLASM OF HEAD OF PANCREAS 07/17/2017 HERLINDAXIN N Ot 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 07/17/2017 HERLINDAXIN N Ot D64.9 ANEMIA, UNSPECIFIED 07/17/2017 HERLINDAXIN N Ot Z79.899 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 ROOM INSPECTOR (CURRENT) DRUG THERAPY 08/06/2017 HERLINDAXIN N Ot [...] UNSPECIFIED 08/11/2017 HERLINDAMARILUAN N Ot Z79.899 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 ROOM INSPECTOR (CURRENT) DRUG THERAPY 08/14/2017 HERLINDAXIN N Ot [...] UNSPECIFIED 08/23/2017 XIN PATE Ot Z79.899 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 ROOM INSPECTOR (CURRENT) DRUG THERAPY 08/27/2017 XIN PATE Ot [...] 08/27/2017 XIN PATE Lilli Ot Z79.899 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 ROOM INSPECTOR (CURRENT) DRUG THERAPY 09/08/2017 JOSE WESTON MD [...] MD Ot I25.10 ATHSCL HEART DISEASE OF [place] CORONARY 10/22/2017 JOSE WESTON MD Ot K21.9 GASTRO-ESOPHAGEAL REFLUX DISEASE WITHOUT 10/22/2017 JOSE WESTON MD Ot M81.0 AGE-RELATED OSTEOPOROSIS W/O CURRENT PAT 10/22/2017 JOSE WESTON MD Ot R91.1 SOLITARY PULMONARY NODULE 10/22/2017 JOSE WESTON MD Ot Z23 ENCOUNTER FOR IMMUNIZATION 10/22/2017 JOSE WESTON MD Ot Z79.899 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 ROOM INSPECTOR (CURRENT) DRUG THERAPY 10/22/2017 JOSE WESTON MD [...] MD Ot I25.10 ATHSCL HEART DISEASE OF [place] CORONARY 10/28/2017 JOSE WESTON MD Ot K21.9 GASTRO-ESOPHAGEAL REFLUX DISEASE WITHOUT 10/28/2017 JOSE WESTON MD Ot M81.0 AGE-RELATED OSTEOPOROSIS W/O CURRENT PAT 10/28/2017 JOSE WESTON MD Ot R91.1 SOLITARY PULMONARY NODULE 10/28/2017 JOSE WESTON MD Ot Z23 ENCOUNTER FOR IMMUNIZATION 10/28/2017 JOSE WESTON MD Ot Z79.899 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 ROOM INSPECTOR (CURRENT) DRUG THERAPY 10/28/2017 JOSE WESTON MD [...] MD Ot I25.10 ATHSCL HEART DISEASE OF [place] CORONARY 10/29/2017 JOSE WESTON MD Ot K21.9 [...] Ot I10 ESSENTIAL (PRIMARY) HYPERTENSION 10/29/2017 XIN APTE Ot I25.10 ATHSCL HEART DISEASE OF [place] CORONARY 10/29/2017 XIN PATE Ot K21.9 GASTRO-ESOPHAGEAL REFLUX DISEASE WITHOUT 10/29/2017 XIN PATE Ot M81.0 AGE-RELATED OSTEOPOROSIS W/O CURRENT PAT 10/29/2017 XIN PATE Ot R91.1 SOLITARY PULMONARY NODULE 10/29/2017 XIN PATE Ot Z23 ENCOUNTER FOR IMMUNIZATION 10/29/2017 XIN PATE Ot Z79.899 OTHER ALF (CURRENT) DRUG THERAPY 10/29/2017 XIN PATE Ot Z92.21 PERSONAL HISTORY OF ANTINEOPLASTIC CHEMO 11/22/2017 XIN PATE Lilli Ot C25.0 MALIGNANT NEOPLASM OF HEAD OF PANCREAS 11/22/2017 XIN PATE Lilli Ot 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 11/22/2017 XIN PATE Lilli Ot D64.9 ANEMIA, UNSPECIFIED 11/22/2017 HERLINDA MARILUANGELICA N Ot I10 ESSENTIAL (PRIMARY) HYPERTENSION 11/22/2017 XIN PATE N Ot I25.10 ATHSCL HEART DISEASE OF [place] CORONARY 11/22/2017 XIN PATE N Ot K21.9 GASTRO-ESOPHAGEAL REFLUX DISEASE WITHOUT 11/22/2017 XIN PATE Lilli Ot M81.0 AGE-RELATED OSTEOPOROSIS W/O CURRENT PAT 11/22/2017 XIN PATE Lilli Ot R91.1 SOLITARY PULMONARY NODULE 11/22/2017 XIN PATE Lilli Ot Z23 ENCOUNTER FOR IMMUNIZATION 11/22/2017 XIN PATE Lilli Ot Z79.899 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 ROOM INSPECTOR (CURRENT) DRUG THERAPY 11/22/2017 XIN PATE Lilli Ot Z92.21 PERSONAL HISTORY OF ANTINEOPLASTIC CHEMO 12/09/2017 DENY MONTAGUE MD, Ot 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, UNSPECIF 12/09/2017 DENY MONTAGUE MD, Ot I10 ESSENTIAL (PRIMARY) HYPERTENSION 12/09/2017 DENY MONTAGUE MD Ot I73.9 PERIPHERAL VASCULAR DISEASE, UNSPECIFIED 12/09/2017 DENY MONTAGUE MD, Ot K21.9 GASTRO-ESOPHAGEAL REFLUX DISEASE WITHOUT 12/09/2017 DENY MONTAGUE MD Ot R11.2 NAUSEA WITH VOMITING, UNSPECIFIED 12/09/2017 DENY MONTAGUE MD, Ot R63.4 ABNORMAL WEIGHT LOSS 12/09/2017 DENY MONTAGUE MD, Ot Z66 DO NOT RESUSCITATE 12/09/2017 DENY MONTAGUE MD, Ot Z86.718 PERSONAL HISTORY OF OTHER VENOUS THROMBO 12/09/2017 DENY MONTAGUE MD, Ot Z87.891 PERSONAL HISTORY OF NICOTINE DEPENDENCE 12/09/2017 DENY MONTAGUE MD, Ot Z92.21 PERSONAL HISTORY OF ANTINEOPLASTIC CHEMO 12/09/2017 DENY MONTAGUE MD, Ot Z92.3 PERSONAL HISTORY OF IRRADIATION 12/14/2017 XIN PATE Ot C25.0 MALIGNANT NEOPLASM OF HEAD OF PANCREAS 12/14/2017 XIN PATE Lilli Ot 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 12/14/2017 XIN PATE N Ot D64.9 ANEMIA, UNSPECIFIED 12/14/2017 XIN PATE N Ot I10 ESSENTIAL (PRIMARY) HYPERTENSION 12/14/2017 XIN PATE N Ot I25.10 ATHSCL HEART DISEASE OF [place] CORONARY 12/14/2017 XIN PATE N Ot K21.9 GASTRO-ESOPHAGEAL REFLUX DISEASE WITHOUT 12/14/2017 XIN PATE N Ot M81.0 AGE-RELATED OSTEOPOROSIS W/O CURRENT PAT 12/14/2017 XIN PATE N Ot R91.1 SOLITARY PULMONARY NODULE 12/14/2017 XIN PATE N Ot Z79.899 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 ROOM INSPECTOR (CURRENT) DRUG THERAPY 12/14/2017 XIN PATE Lilli Ot Z92.21 PERSONAL HISTORY OF ANTINEOPLASTIC CHEMO 12/16/2017 XIN PATE Lilli Ot C25.0 MALIGNANT NEOPLASM OF HEAD OF PANCREAS 12/16/2017 XIN PATE Lilli Ot 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 12/16/2017 XIN PATE Lilli Ot D64.9 ANEMIA, UNSPECIFIED 12/16/2017 XIN PATE N Ot I10 ESSENTIAL (PRIMARY) HYPERTENSION 12/16/2017 XIN PATE N Ot I25.10 ATHSCL HEART DISEASE OF [place] CORONARY 12/16/2017 XIN PATE Lilli Ot K21.9 GASTRO-ESOPHAGEAL REFLUX DISEASE WITHOUT 12/16/2017 XIN PATE Lilli Ot M81.0 AGE-RELATED OSTEOPOROSIS W/O CURRENT PAT 12/16/2017 XIN PATE N Ot R91.1 SOLITARY PULMONARY NODULE 12/16/2017 XIN PATE N Ot Z79.899 OTHER ALF (CURRENT) DRUG THERAPY 12/16/2017 XIN PATE Lilli Ot Z92.21 PERSONAL HISTORY OF ANTINEOPLASTIC CHEMO [...] resistant Staphylococcus aureus (MRSA) screening culture NEG NR Automated blood complete blood count (hemogram) panel [...] Complete urinalysis with reflex to culture - 10/30/17 21:43 Urine color determination YELLOW NRG Urine [...] urinalysis with reflex to culture NO NRG Complete blood count (CBC) with automated white blood cell (WBC) differential - 11/29/17 14:15 Blood leukocytes automated count (number/volume) 6.1 10*3/uL 4.3-11.0 Blood erythrocytes automated count (number/volume) 3.62 10*6/uL 4.35-5.85 Venous blood hemoglobin measurement (mass/volume) 11.1 g/dL 11.5-16.0 Blood hematocrit (volume fraction) 33 % 35-52 Automated erythrocyte mean corpuscular volume 90 [foz_us] 80-99 Automated erythrocyte mean corpuscular hemoglobin (mass per erythrocyte) 31 pg 25-34 Automated erythrocyte mean corpuscular hemoglobin concentration measurement ( mass/volume) 34 g/dL 32-36 Automated erythrocyte distribution width ratio 15.0 % 10.0-14.5 Automated blood platelet count (count/volume) 190 10*3/uL 130-400 Automated blood platelet mean volume measurement 10.7 [foz_us] 7.4-10.4 Automated blood neutrophils/100 leukocytes 65 % 42-75 Automated blood lymphocytes/100 leukocytes 26 % 12-44 Blood monocytes/100 leukocytes 8 % 0-12 Automated blood eosinophils/100 leukocytes 1 % 0-10 Automated blood basophils/100 leukocytes 1 % 0-10 Blood neutrophils automated count (number/volume) 3.9 10*3 1.8-7.8 Blood lymphocytes automated count (number/volume) 1.6 10*3 1.0-4.0 Blood monocytes automated count (number/volume) 0.5 10*3 0.0-1.0 Automated eosinophil count 0.1 10*3/uL 0.0-0.3 Automated blood basophil count (count/volume) 0.0 10*3/uL 0.0-0.1 Comprehensive metabolic panel - 11/29/17 14:15 Serum or plasma sodium measurement (moles/volume) 139 mmol/L 135-145 Serum or plasma potassium measurement (moles/volume) 3.9 mmol/L 3.6-5.0 Serum or plasma chloride measurement (moles/volume) 101 mmol/L 98-107 Carbon dioxide 27 mmol/L 21-32 Serum or plasma anion gap determination (moles/volume) 11 mmol/L 5-14 Serum or plasma urea nitrogen measurement (mass/volume) 14 mg/dL 7-18 Serum or plasma creatinine measurement (mass/volume) 0.82 mg/dL 0.60-1.30 Serum or plasma urea nitrogen/creatinine mass ratio 17 NRG Serum or plasma creatinine measurement with calculation of estimated glomerular filtration rate > NRG Serum or plasma glucose measurement (mass/volume) 101 mg/dL 70-105 Serum or plasma calcium measurement (mass/volume) 9.1 mg/dL 8.5-10.1 Serum or plasma total bilirubin measurement (mass/volume) 1.4 mg/dL 0.1-1.0 Serum or plasma alkaline phosphatase measurement (enzymatic activity/volume) 58 U/L 40-136 Serum or plasma aspartate aminotransferase measurement (enzymatic activity/ volume) 18 U/L 5-34 Serum or plasma alanine aminotransferase measurement (enzymatic activity/volume ) 10 U/L 0-55 Serum or plasma protein measurement (mass/volume) 6.7 g/dL 6.4-8.2 Serum or plasma albumin measurement (mass/volume) 3.1 g/dL 3.2-4.5 Magnesium - 11/29/17 14:15 Magnesium 1.9 mg/dL 1.8-2.4 Serum or plasma troponin i.cardiac measurement (mass/volume) - 11/29/17 14:15 Serum or plasma troponin i.cardiac measurement (mass/volume) < ng/ mL <0.30 Influenza virus A and B antigen detection - 11/29/17 14:15 FLU RESULT NEGATIVE FOR INFLUENZA A AND B ANTIGENS BY IA NRG Lipase - 11/29/17 14:15 Lipase 12 U/L 8-78 Complete urinalysis with reflex to culture - 11/29/17 17:08 Urine color determination ROGELIO NRG Urine clarity determination CLEAR NRG Urine pH measurement by test strip 6 5-9 Specific gravity of urine by test strip 1.020 1.016- 1.022 Urine protein assay by test strip, semi-quantitative 2+ NEGATIVE Urine glucose detection by automated test strip NEGATIVE NEGATIVE Erythrocytes detection in urine sediment by light microscopy 2+ NEGATIVE Urine ketones detection by automated test strip 2+ NEGATIVE Urine nitrite detection by test strip NEGATIVE NEGATIVE Urine total bilirubin detection by test strip 1+ NEGATIVE Urine urobilinogen measurement by automated test strip (mass/volume) 1 mg/dL NORMAL Urine leukocyte esterase detection by dipstick 2+ NEGATIVE Automated urine sediment erythrocyte count by microscopy (number/high power field) NONE NRG Automated urine sediment leukocyte count by microscopy (number/high power field ) [HPF] NRG Bacteria detection in urine sediment by light microscopy NEGATIVE NRG Squamous epithelial cells detection in urine sediment by light microscopy 2-5 NRG Crystals detection in urine sediment by light microscopy NONE NRG Casts detection in urine sediment by light microscopy PRESENT NRG Mucus detection in urine sediment by light microscopy SMALL NRG Complete urinalysis with reflex to culture YES NRG Hyaline casts detection in urine sediment by light microscopy 2-5 NRG Bacterial urine culture - 11/29/17 17:08 URINE CULTURE RESULTS MORE THAN 3 ISOLATES NRG Serum or plasma troponin i.cardiac measurement (mass/volume) - 11/29/17 18:15 Serum or plasma troponin i.cardiac measurement (mass/volume) < ng/ mL <0.30 Complete blood count (CBC) with automated white blood cell (WBC) differential - 12/06/17 15:15 Blood leukocytes automated count (number/volume) 7.0 10*3/uL 4.3-11.0 Blood erythrocytes automated count (number/volume) 3.62 10*6/uL 4.35-5.85 Venous blood hemoglobin measurement (mass/volume) 11.0 g/dL 11.5-16.0 Blood hematocrit (volume fraction) 33 % 35-52 Automated erythrocyte mean corpuscular volume 90 [foz_us] 80-99 Automated erythrocyte mean corpuscular hemoglobin (mass per erythrocyte) 30 pg 25-34 Automated erythrocyte mean corpuscular hemoglobin concentration measurement ( mass/volume) 34 g/dL 32-36 Automated erythrocyte distribution width ratio 15.4 % 10.0-14.5 Automated blood platelet count (count/volume) 182 10*3/uL 130-400 Automated blood platelet mean volume measurement 10.1 [foz_us] 7.4-10.4 Automated blood neutrophils/100 leukocytes 68 % 42-75 Automated blood lymphocytes/100 leukocytes 23 % 12-44 Blood monocytes/100 leukocytes 9 % 0-12 Automated blood eosinophils/100 leukocytes 1 % 0-10 Automated blood basophils/100 leukocytes 0 % 0-10 Blood neutrophils automated count (number/volume) 4.7 10*3 1.8-7.8 Blood lymphocytes automated count (number/volume) 1.6 10*3 1.0-4.0 Blood monocytes automated count (number/volume) 0.6 10*3 0.0-1.0 Automated eosinophil count 0.1 10*3/uL 0.0-0.3 Automated blood basophil count (count/volume) 0.0 10*3/uL 0.0-0.1 Comprehensive metabolic panel - 12/06/17 15:15 Serum or plasma sodium measurement (moles/volume) 137 mmol/L 135-145 Serum or plasma potassium measurement (moles/volume) 3.6 mmol/L 3.6-5.0 Serum or plasma chloride measurement (moles/volume) 101 mmol/L 98-107 Carbon dioxide 25 mmol/L 21-32 Serum or plasma anion gap determination (moles/volume) 11 mmol/L 5-14 Serum or plasma urea nitrogen measurement (mass/volume) 14 mg/dL 7-18 Serum or plasma creatinine measurement (mass/volume) 0.77 mg/dL 0.60-1.30 Serum or plasma urea nitrogen/creatinine mass ratio 18 NRG Serum or plasma creatinine measurement with calculation of estimated glomerular filtration rate > NRG Serum or plasma glucose measurement (mass/volume) 126 mg/dL 70-105 Serum or plasma calcium measurement (mass/volume) 8.5 mg/dL 8.5-10.1 Serum or plasma total bilirubin measurement (mass/volume) 1.5 mg/dL 0.1-1.0 Serum or plasma alkaline phosphatase measurement (enzymatic activity/volume) 47 U/L 40-136 Serum or plasma aspartate aminotransferase measurement (enzymatic activity/ volume) 17 U/L 5-34 Serum or plasma alanine aminotransferase measurement (enzymatic activity/volume ) 7 U/L 0-55 Serum or plasma protein measurement (mass/volume) 6.4 g/dL 6.4-8.2 Serum or plasma albumin measurement (mass/volume) 3.1 g/dL 3.2-4.5 Complete blood count (CBC) with automated white blood cell (WBC) differential - 12/07/17 05:40 Blood leukocytes automated count (number/volume) 5.4 10*3/uL 4.3-11.0 Blood erythrocytes automated count (number/volume) 3.08 10*6/uL 4.35-5.85 Venous blood hemoglobin measurement (mass/volume) 9.3 g/dL 11.5-16.0 Blood hematocrit (volume fraction) 28 % 35-52 Automated erythrocyte mean corpuscular volume 91 [foz_us] 80-99 Automated erythrocyte mean corpuscular hemoglobin (mass per erythrocyte) 30 pg 25-34 Automated erythrocyte mean corpuscular hemoglobin concentration measurement ( mass/volume) 33 g/dL 32-36 Automated erythrocyte distribution width ratio 15.0 % 10.0-14.5 Automated blood platelet count (count/volume) 146 10*3/uL 130-400 Automated blood platelet mean volume measurement 10.0 [foz_us] 7.4-10.4 Automated blood neutrophils/100 leukocytes 51 % 42-75 Automated blood lymphocytes/100 leukocytes 37 % 12-44 Blood monocytes/100 leukocytes 10 % 0-12 Automated blood eosinophils/100 leukocytes 2 % 0-10 Automated blood basophils/100 leukocytes 1 % 0-10 Blood neutrophils automated count (number/volume) 2.8 10*3 1.8-7.8 Blood lymphocytes automated count (number/volume) 2.0 10*3 1.0-4.0 Blood monocytes automated count (number/volume) 0.6 10*3 0.0-1.0 Automated eosinophil count 0.1 10*3/uL 0.0-0.3 Automated blood basophil count (count/volume) 0.0 10*3/uL 0.0-0.1 Comprehensive metabolic panel - 12/07/17 05:40 Serum or plasma sodium measurement (moles/volume) 136 mmol/L 135-145 Serum or plasma potassium measurement (moles/volume) 3.4 mmol/L 3.6-5.0 Serum or plasma chloride measurement (moles/volume) 108 mmol/L 98-107 Carbon dioxide 24 mmol/L 21-32 Serum or plasma anion gap determination (moles/volume) 4 mmol/L 5-14 Serum or plasma urea nitrogen measurement (mass/volume) 12 mg/dL 7-18 Serum or plasma creatinine measurement (mass/volume) 0.68 mg/dL 0.60-1.30 Serum or plasma urea nitrogen/creatinine mass ratio 18 NRG Serum or plasma creatinine measurement with calculation of estimated glomerular filtration rate > NRG Serum or plasma glucose measurement (mass/volume) 99 mg/dL 70-105 Serum or plasma calcium measurement (mass/volume) 7.6 mg/dL 8.5-10.1 Serum or plasma total bilirubin measurement (mass/volume) 1.1 mg/dL 0.1-1.0 Serum or plasma alkaline phosphatase measurement (enzymatic activity/volume) 40 U/L 40-136 Serum or plasma aspartate aminotransferase measurement (enzymatic activity/ volume) 14 U/L 5-34 Serum or plasma alanine aminotransferase measurement (enzymatic activity/volume ) 7 U/L 0-55 Serum or plasma protein measurement (mass/volume) 4.9 g/dL 6.4-8.2 Serum or plasma albumin measurement (mass/volume) 2.4 g/dL 3.2-4.5 Encounters ACCT No. Visit Date/Time Discharge Status Pt. Type Provider Facility Loc./Unit Complaint [id number] 12/06/2017 15:00:00 12/09/2017 13:05:00 DIS Outpatient EDDI LAZO, DENY Charles [facility] 4TH PANCREATIC CA, NAUSEA [id number] 11/29/2017 13:50:00 11/29/2017 19:20:00 DIS Emergency JIMBO LAZO, EZEQUIEL Baldwin [facility] ER N/V [id number] 11/03/2017 10:47:00 11/03/2017 23:59:59 CLS Outpatient XIN PATE [facility] ONC [id number] 10/06/2017 09:22:00 10/29/2017 16:15:00 DIS Outpatient JOSE WESTON MD [facility] ONC [id number] 09/21/2017 09:45:00 09/21/2017 23:59:59 CLS Preadmit JOSE WESTON MD [facility] RAD C25.0 PANCREATIC CANCER [id number] 09/13/2017 18:54:00 09/13/2017 22:39:00 DIS Emergency MAYNOR BONNER MD [facility] ER WEAKNESS/ORANGE URINE [id number] 08/10/2017 13:27:00 08/14/2017 00:01:00 DIS Outpatient XIN PATE [facility] ONC [id number] 06/03/2017 10:23:00 06/16/2017 00:01:00 DIS Outpatient XIN PATE [facility] ONC [id number] 04/27/2017 11:36:00 04/27/2017 23:59:59 CLS Outpatient MORENITA FARRIS [employer] [facility] RAD LUNG NODULE [id number] 04/14/2017 11:53:00 04/14/2017 23:59:59 CLS Outpatient MORENITA FARRIS [employer] DIRECT[employer] [facility] RAD LT LEG SWELLING [id number] 04/01/2017 10:42:00 04/01/2017 17:43:00 DIS Emergency SALINA COTA MD [facility] ER IRR HEART RATE [id number] 03/20/2017 20:42:00 03/20/2017 22:13:00 DIS Emergency RONEL MARES APRN [facility] ER BACK PAIN [id number] 03/18/2017 08:04:00 03/18/2017 15:20:00 DIS Emergency ZAYRA ELIZONDO MD [facility] ER LOW BACK PAIN [id number] 03/11/2017 13:01:00 03/17/2017 00:01:00 DIS Outpatient XIN PATE [facility] ONC [id number] 02/10/2017 11:30:00 02/17/2017 16:20:00 DIS Inpatient ERICKA MONTGOMERY MD [facility] IRF T10 COMPRESSION FRACTURE [id number] 02/04/2017 21:30:00 02/10/2017 11:10:00 DIS Outpatient SONIA HERNANDEZ ITZEL Fisher [facility] NEW T10 COMPRESSION FRACTURE INTRACTABLE PAIN UTI [id number] 01/23/2017 15:31:00 01/23/2017 18:42:00 DIS Emergency MARESRONEL APRN [facility] ER BACK PAIN [id number] 12/17/2016 10:15:00 12/17/2016 23:59:59 CLS Outpatient MORENITA FARRIS [employer] DIRECT[employer] [facility] RAD PANCREATIC CANCER, LUNG NODULE [id number] 11/05/2016 13:19:00 11/25/2016 00:01:00 DIS Outpatient XIN PATE [facility] ONC [id number] 09/24/2016 10:07:00 09/24/2016 23:59:59 CLS Outpatient [employer]OR[employer]ITA [employer] [facility] RAD PANCREATIC CANCER [id number] 07/14/2016 14:37:00 08/21/2016 11:10:00 DIS Outpatient XIN PATE [facility] ONC [id number] 07/14/2016 08:00:00 07/14/2016 23:59:59 CLS Outpatient [employer]ITA [employer] [facility] ONC [id number] 05/29/2016 19:32:00 05/30/2016 00:59:00 DIS Emergency DINAH MELISSA [facility] ER PALENESS/ABD SIDE PAIN [id number] 04/27/2016 12:55:00 05/18/2016 00:01:00 DIS Outpatient XIN PATE [facility] ONC [id number] 04/22/2016 10:25:00 04/22/2016 23:59:59 CLS Outpatient MORENITA FARRIS [employer] [facility] RAD PANCREATIC CANCER [id number] 03/17/2016 10:59:00 03/17/2016 23:59:59 CLS Outpatient MORENITA FARRIS S [employer] [facility] ONC [id number] 02/06/2016 09:00:00 02/17/2016 00:01:00 DIS Outpatient XIN PATE [facility] ONC [id number] 02/06/2016 08:57:00 02/06/2016 23:59:59 CLS Outpatient MORENITA FARRIS S [employer] [facility] ONC [id number] 01/31/2016 09:37:00 01/31/2016 23:59:59 CLS Outpatient MORENITA FARRIS S [employer] [facility] RAD PANCREATIC CANCER [id number] 01/28/2016 10:39:00 01/28/2016 23:59:59 CLS Outpatient MORENITA FARRIS S [employer] [facility] ONC [id number] 01/21/2016 12:15:00 01/21/2016 23:59:59 CLS Outpatient BAIANCELMO CONROY L [employer] [facility] CARD PALPITATIONS,CAD,HTN ,PAD [id number] 01/16/2016 07:45:00 01/16/2016 23:59:59 CLS Outpatient BAIMARYCARMEN ANCELMO L [employer] [facility] CARD PALPITATIONS,CAD,PAD ,HTN [id number] 12/16/2015 15:44:00 12/16/2015 23:59:59 CLS Outpatient JENNIFER WOLFE MD [facility] RAD HEMATURIA [id number] 12/15/2015 09:04:00 12/15/2015 12:20:00 DIS Emergency ZAYRA ELIZONDO MD [facility] ER L SIDE NUMBNESS [id number] 12/13/2015 12:18:00 12/13/2015 23:59:59 CLS Emergency ZAYRA ELIZONDO MD [facility] ER SOA [id number] 12/05/2015 16:39:00 12/05/2015 23:59:59 CLS Outpatient MORENITA FARRIS S [employer] [facility] ONC [id number] 11/27/2015 08:34:00 11/27/2015 23:59:59 CLS Outpatient MORENITA FARRIS S [employer] [facility] RAD PANCREATIC CANCER [id number] 11/12/2015 13:50:00 11/18/2015 00:01:00 DIS Outpatient XIN PATE N [facility] ONC [id number] 11/12/2015 13:52:00 11/12/2015 23:59:59 CLS Outpatient FARRIS HILAH S [employer] [facility] ONC [id number] 10/01/2015 13:14:00 10/01/2015 23:59:59 CLS Outpatient FARRIS HILAH S [employer] [facility] ONC [id number] 09/10/2015 13:18:00 09/10/2015 23:59:59 CLS Outpatient FARRIS HILAH S [employer] [facility] ONC [id number] 08/20/2015 13:54:00 08/20/2015 23:59:59 CLS Outpatient FARRIS HILAH S [employer] [facility] ONC [id number] 08/06/2015 13:20:00 08/14/2015 00:01:00 DIS Outpatient XIN PATE Lilli [facility] ONC [id number] 07/29/2015 09:10:00 07/29/2015 23:59:59 CLS Outpatient FARRIS HILAH S [employer] [facility] RAD PANCREATIC CANCER [id number] 07/16/2015 13:13:00 07/16/2015 23:59:59 CLS Outpatient FARRIS HILAH S [employer] [facility] ONC [id number] 06/25/2015 10:33:00 06/25/2015 23:59:59 CLS Outpatient FARRIS HILAH S [employer] [facility] ONC [id number] 06/11/2015 13:45:00 06/16/2015 00:01:00 DIS Outpatient XIN PATE Lilli [facility] ONC [id number] 05/28/2015 14:00:00 05/28/2015 23:59:59 CLS Outpatient ROBERT SWENSON MD [facility] ONC [id number] 05/01/2015 09:20:00 05/01/2015 23:59:59 CLS Outpatient FARRIS HILAH S [employer] [facility] RAD PANCREATIC CANCER [id number] 04/16/2015 13:44:00 04/16/2015 23:59:59 CLS Outpatient MORENITA FARRIS [employer] [facility] ONC [id number] 02/19/2015 13:57:00 02/19/2015 23:59:59 CLS Outpatient MORENITA FARRIS [employer] [facility] ONC [id number] 01/01/2015 13:54:00 01/01/2015 23:59:59 CLS Outpatient XIN PATE [facility] ONC [id number] 12/28/2014 05:53:00 12/28/2014 09:01:00 DIS Emergency ZAYRA ELIZONDO MD [facility] ER HEART PALPITATIONS [id number] 12/25/2014 14:03:00 12/25/2014 23:59:59 CLS Outpatient MORENITA FARRIS [employer] [facility] ONC [id number] 12/21/2014 06:04:00 12/21/2014 10:31:00 DIS Outpatient INGRID COOPER MD [facility] SDC PANCREATIC CANCER [id number] 12/19/2014 11:07:00 12/19/2014 23:59:59 CLS Outpatient INGRID COOPER MD [facility] PREOP PANCREATIC CANCER [id number] 12/12/2014 08:38:00 12/12/2014 16:20:00 DIS Outpatient JENNIFER WOLFE MD [facility] RAD PANCREATIC MASS [id number] 12/04/2014 12:21:00 12/04/2014 23:59:59 CLS Outpatient JENNIFER WOLFE MD [facility] RAD ABDOMINAL MASS [id number] 11/30/2014 14:45:00 11/30/2014 23:59:59 CLS Outpatient JENNIFER WOLFE MD [facility] RAD PANCREATIC MASS [id number] 11/30/2014 08:02:00 11/30/2014 23:59:59 CLS Outpatient JENNIFER WOLFE MD [facility] RAD PANCREATIC MASS [id number] 11/27/2014 08:49:00 11/27/2014 23:59:59 CLS Outpatient JENNIFER WOLFE MD [facility] CARD CHEST ABDOMINAL PAIN [id number] 10/04/2014 09:57:00 10/04/2014 17:50:00 DIS Outpatient INGRID COOPER MD [facility] CATH ASOD,LEG PAIN [id number] 06/05/2014 10:17:00 06/05/2014 23:59:59 CLS Outpatient JENNIFER WOLFE MD [facility] RAD SCREENING [id number] 02/05/2015 09:19:00 Document Registration [id number] 02/01/2015 10:17:00 Document Registration [id number] 11/27/2014 08:49:00 Document Registration [id number] 11/27/2014 08:49:00 Document Registration [id number] 11/27/2014 08:49:00 Document Registration [id number] 11/27/2014 08:48:00 Document Registration [id number] 08/26/2012 10:27:00 Document Registration [id number] 11/19/2011 11:20:00 Document Registration [id number] 10/28/2011 19:50:00 Document Registration [id number] 03/04/2011 10:10:00 Document Registration [id number] 03/02/2011 14:10:00 Document Registration [id number] 02/17/2011 19:16:00 Document Registration [id number] 11/27/2010 13:05:00 Document Registration [id number] 01/15/2010 14:23:00 Document Registration [id number] 08/28/2008 16:45:00 Document Registration
[2018-01-02] MEDS ORDERED: fentaNYL INJECTION 100 MCG/2 ML AMP IVP ONE ×2 (22:30→23:00)
[2018-01-02] MEDS ORDERED: ASPIRIN 81 MG CHEW (CHILDREN'S ASA) PO ONE (22:30)
[2018-01-02 22:42] LABS: BASOPHILS % (AUTO) 0 % (0-10); EOSINOPHILS # (AUTO) 0.2 10^3/uL (0.0-0.3); EOSINOPHILS % (AUTO) 2 % (0-10); HEMATOCRIT 31 % (35-52); HEMOGLOBIN 10.3 G/DL (11.5-16.0); LYMPHOCYTES # (AUTO) 3.7 X 10^3 (1.0-4.0); LYMPHOCYTES % (AUTO) 45 % (12-44); MEAN CORPUSCULAR HEMOGLOBIN 31 PG (25-34); MEAN CORPUSCULAR HGB CONC 34 G/DL (32-36); MEAN CORPUSCULAR VOLUME 91 FL (80-99); MEAN PLATELET VOLUME 9.9 FL (7.4-10.4); MONOCYTES # (AUTO) 0.1 X 10^3 (0.0-1.0); MONOCYTES % (AUTO) 2 % (0-12); NEUTROPHILS # (AUTO) 4.2 X 10^3 (1.8-7.8); NEUTROPHILS % (AUTO) 51 % (42-75); PLATELET COUNT 193 10^3/uL (130-400); RED BLOOD COUNT 3.36 10^6/uL (4.35-5.85); RED CELL DISTRIBUTION WIDTH 15.4 % (10.0-14.5); WHITE BLOOD COUNT 8.3 10^3/uL (4.3-11.0)
[2018-01-02 22:44] VITALS: BP 90/43
[2018-01-02] MEDS ORDERED: NS IV PRN (22:45)
[2018-01-02] MEDS ORDERED: NS IV 1000 ML 1,000 ML IV ONE (22:48)
[2018-01-02 22:50] LABS: INR 1.1 (0.8-1.4); PROTHROMBIN TIME PATIENT 14.6 SEC (12.2-14.7)
[2018-01-02] MEDS ORDERED: NS IV 1000 ML 1,000 ML IV SCH (23:00)
[2018-01-02 23:02] LABS: ALANINE AMINOTRANSFERASE 32 U/L (0-55); ALBUMIN 2.3 GM/DL (3.2-4.5); ALKALINE PHOSPHATASE 556 U/L (40-136); AMYLASE 15 U/L (25-125); BILIRUBIN,TOTAL 2.5 MG/DL (0.1-1.0); BUN/CREATININE RATIO 17; CALCIUM 7.8 MG/DL (8.5-10.1); CARBON DIOXIDE 22 MMOL/L (21-32); CHLORIDE 100 MMOL/L (98-107); CREATININE SERUM 0.78 MG/DL (0.60-1.30); GFR ESTIMATED > 60; GLUCOSE 83 MG/DL (70-105); LIPASE < 4 U/L (8-78); MAGNESIUM 1.7 MG/DL (1.8-2.4); POTASSIUM 2.9 MMOL/L (3.6-5.0); SODIUM 140 MMOL/L (135-145); TOTAL PROTEIN 4.5 GM/DL (6.4-8.2)
[2018-01-02 23:04] VITALS: BP 138/59
[2018-01-02 23:34] LABS: MYOGLOBIN SERUM 60.4 NG/ML (10.0-92.0)
[2018-01-02 23:43] VITALS: BP 147/60
[2018-01-02] MEDS ORDERED: POTASSIUM CL 10MEQ/50ML IVPB 50 ML IV SCH (23:45)
[2018-01-02] MEDS ORDERED: MAGNESIUM 1 GM/100 ML IVPB 100 ML IV SCH (23:45)
[2018-01-03] MEDS ORDERED: MAGNESIUM 1 GM/100 ML IVPB 100 ML IV ONE (01:00)
[2018-01-03] MEDS ORDERED: POTASSIUM CL 10MEQ/50ML IVPB 50 ML IV ONE (01:00)
[2018-01-03 01:03] VITALS: BP 154/70
--- NOTE | 2018-01-03 07:20 | Diagnostic Imaging Report ---
EXAM: CHEST 1 VIEW, AP/PA ONLY INDICATION: Chest pain. COMPARISON: Chest radiograph 11/29/2017. CT chest without and with IV contrast 01/31/2016. FINDINGS: Normal heart size and central pulmonary vascularity. There is increasing consolidation in the left lung base. Stable calcifications in the right lung base. Probable small left pleural effusion. No pneumothorax. 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 No acute osseous findings. IVC filter. IMPRESSION: Increasing consolidation in the left lung base. Probable small left pleural effusion. Dictated by: Dictated on workstation # [id number]
== END 2018-01-03 00:53 | disposition home or self-care (01) ==
LOC: EDUNIT# 22:11 → ER 22:12
DX: R10.13 Epigastric pain (principal); R07.89 Other chest pain; C25.9 Malignant neoplasm of pancreas, unspecified; R07.9 Chest pain, unspecified; I10 Essential (primary) hypertension; K21.9 Gastro-esophageal reflux disease without esophagitis; Z87.891 Personal history of nicotine dependence; Z90.710 Acquired absence of both cervix and uterus; Z92.21 Personal history of antineoplastic chemotherapy; Z86.718 Personal history of other venous thrombosis and embolism; Z90.49 Acquired absence of other specified parts of digestive tract; Z88.5 Allergy status to narcotic agent
CPT/HCPCS: 36415; 71045; 80053; 82150; 83690; 83735; 83874; 83880; 84484; 85025; 85610; 85730; 93005; 93041